=== PATIENT | female | born 1945 | race Caucasian/White ===

== ENCOUNTER 2017-03-16 11:14 | Inpatient (IN) ==
[2017-03-16] MEDS ORDERED: Ondansetron 4 MG/2 ML VIAL IVP ONE ×2 (14:05→19:07)
[2017-03-16] MEDS ORDERED: 0.9 % Sodium Chloride 1,000 ML IVC ONE (14:05)
[2017-03-16 14:21] LABS: Basophils % 0.3 %; Eosinophils % 0.3 %; Hematocrit 40.2 % (35.3-44.9); Hemoglobin 13.3 g/dL (11.5-15.4); Immature Granulocytes % 0.3 % (0-4); Lymphocytes # 1.6 K/mcL (0.6-4.6); Lymphocytes % 20.9 %; Mean Corpuscular HGB Conc 33.1 g/dL (31.6-35.5); Mean Corpuscular Hemoglobin 30.9 pg (28.0-33.3); Mean Corpuscular Volume 93.5 fL (83.0-100.0); Mean Platelet Volume 10.6 fL (9.4-12.4); Monocytes # 0.8 K/mcL (0.0-1.3); Monocytes % 10.3 %; Neutrophils # 5.3 K/mcL (1.6-8.9); Platelet Count 244 K/mcL (140-400); Red Cell Distribution Width 12.2 % (11.5-14.5); Segmented Neutrophils % 67.9 %
[2017-03-16 14:31] LABS: Bilirubin,Urine Negative (Negative); Blood,Urine Negative (Negative); Clarity,Urine Cloudy (Clear); Color,Urine Yellow (Yellow); Glucose,Urine (UA) Normal (Normal); Ketones,Urine 15 mg/dL (Negative); Leukocyte Esterase,Urine Negative (Negative); Nitrite,Urine Negative (Negative); PH,Urine 7.5 pH Units (5.0-8.0); Protein,Urine Negative (Neg-Trace); Specific Gravity,Urine 1.013 (1.010-1.025); Urobilinogen,Urine Normal (Normal)
[2017-03-16 14:35] LABS: Alanine Aminotransferase 18 Units/L (0-55); Albumin 4.1 g/dL (3.5-5.0); Albumin/Globulin Ratio 1.4 (1.1-2.2); Alkaline Phosphatase 75 Units/L (38-126); Aspartate Amino Transferase 25 Units/L (5-34); BUN/Creatinine Ratio 17 (6-26); Bilirubin,Total 0.6 mg/dL (0.2-1.2); Blood Urea Nitrogen 14 mg/dL (7-20); Calcium 10.5 mg/dL (8.6-10.8); Carbon Dioxide 29 mEq/L (19-29); Chloride 99 mEq/L (98-109); Glucose 100 mg/dL (70-99); Lipase 19 Units/L (8-78); Osmolality,Calculated 283 (280-300); Potassium 3.8 mEq/L (3.5-4.5); Sodium 136 mEq/L (136-145); Total Protein 7.1 g/dL (6.0-8.3); eGFR For African Americans > 60 (> 60); eGFR For Non-African Americans > 60 (> 60)
--- NOTE | 2017-03-16 14:49 | Emergency Department Note ---
Disposition Clinical Impression: Nausea vomiting and diarrhea, Dehydration, Elevated troponin, Pulmonary congestion Disposition: Admitted As Inpatient Condition: Good Instructions: Dehydration (ED) Referrals: Aren Malik Jr, MD [Primary Care Provider] - Forms: ED Satisfaction Letter Time of Disposition: 19:16 Nausea/Vomiting/Diarrhea HPI - General Chief complaint: ED Nausea/Vomiting/Diarrhea Stated complaint: N/V/D chills Time Seen by Provider: 03/16/17 13:38 Source: patient Mode of arrival: ambulatory Limitations: no limitations Nursing Notes Reviewed: Yes Vital Signs Reviewed: Yes - History of Present Illness HPI Narrative: Patient presents to emergency room with complaint of nausea vomiting or diarrhea. Patient is a generalized malaise and the symptoms for the last 4 days. Denies any trauma or injury. Denies any other medical conditions or symptoms. Patient denies any travel outside the country or possible food exposures. She has had this several times in the past with unknown etiology. Currently denying fevers chills nausea vomiting or diarrhea. Denies chest pain shortness of breath headache or vision change. Pt Subjective Complaint: nausea, vomiting, diarrhea Onset (ago): day(s) Description of emesis: food contents Number of episodes of emesis: 6 Description of Diarrhea: water Number of episodes: 6 Associated Abdominal Pain: No Severity: mild Quality: cramping Consistency: constant Improves with: nothing Worsens with: eating, vomiting Associated symptoms: Reports: denies other symptoms - Related Data Home Medications Medication Instructions Recorded Confirmed Citalopram [CeleXA] 20 mg PO DAILY 02/05/16 02/05/16 Diclofenac Sodium [Voltaren] 75 mg PO HS 02/05/16 02/05/16 Loratadine [Claritin] 10 mg PO DAILY 02/05/16 02/05/16 Lovastatin [Mevacor] 40 mg PO HS 02/05/16 02/05/16 Metoprolol [Lopressor] 25 mg PO BID 02/05/16 02/05/16 Nitroglycerin [Nitrostat] 0.4 mg SL Q5M PRN 02/05/16 02/05/16 Ranitidine HCl [Zantac] 150 mg PO BID 02/05/16 02/05/16 Previous Rx's Medication Instructions Recorded Albuterol Sulfate [Albuterol 2 puff IH Q4HR PRN #2 [id number].[email or web address].[id number] 02/08/16 Inhaler] Levofloxacin [Levaquin] 750 mg PO DAILY #7 tablet 02/08/16 predniSONE [PredniSONE] 10 mg PO DAILY #7 tablet 02/08/16 Oxycodone HCl/Acetaminophen 1 each PO Q6HR PRN #20 tablet 02/02/17 [Percocet 5-325 mg Tablet] Allergies Allergy/AdvReac Type Severity Reaction Status Date / Time clarithromycin [From Biaxin] Allergy Gastrointestinal Verified 02/05/16 12:45 Upset codeine AdvReac See Verified 02/05/16 08:27 Comments lansoprazole [From Prevacid] AdvReac ulcer Verified 02/05/16 12:45 lisinopril AdvReac Cough Verified 02/05/16 12:45 meloxicam [From Mobic] AdvReac ulcer Verified 02/05/16 12:45 Opium (Anthroposophic) AdvReac nausea/vomi Verified 02/05/16 12:45 ting All systems ED: reviewed and negative except as stated. Constitutional: Denies: fever, chills Cardiovascular: Denies: chest pain, palpitations, dyspnea on exertion, orthopnea Respiratory: Denies: cough, dyspnea Gastrointestinal: Reports: abdominal pain, nausea, vomiting, diarrhea. Denies: constipation Genitourinary: Denies: dysuria, frequency Musculoskeletal: Denies: back pain, neck pain Integumentary: Denies: rash Neurological: Denies: headache Endocrine: Denies: fatigue Past Medical History - Past Medical History Attestation: Yes The following information was validated with the patient. Source: patient Medical history: Reports: asthma, COPD, GERD, hyperlipidemia, hypertension Surgical history: Reports: breast surgery, cholecystectomy, hysterectomy, other Psychiatric history: Reports: anxiety - Social History Smoking Status: Never smoker Smokeless Tobacco Status: No Alcohol use: Reports: none Drug use: Reports: none Physical Exam - General Limitations: no limitations General appearance: alert - Neck Neck exam: Present: normal inspection, full ROM, trachea midline - Chest Chest inspection: Present: normal inspection, symmetric chest wall rise. Absent : tenderness - Respiratory Respiratory exam: Present: normal lung sounds bilaterally - Cardiovascular Cardiovascular exam: Present: regular rate, normal rhythm, normal heart sounds - Abdominal Exam Abdominal exam: Present: soft, Non-Tender, normal bowel sounds. Absent: tenderness, distention, guarding, rebound, rigidity, diminished bowel sounds, Garica's sign, Rovsing's sign, tenderness at McBurney's Point - Extremities Exam Extremities exam: Present: normal inspection, full ROM, normal capillary refill. Absent: tenderness, pedal edema - Back Exam Back exam: Present: normal inspection, full ROM. Absent: tenderness, CVA tenderness (R), CVA tenderness (L) - Neurological Exam Neurological exam: Present: alert, oriented X3, CN II-XII intact, normal gait - Skin Skin exam: Present: warm, dry, intact, normal color Course Course Narrative: Patient seen and examined at the time of arrival. See history of present illness. 71-year-old female presents to emergency room with complaint of nausea vomiting and diarrhea and generalized malaise over the last several days. She has had 4 days worth of diarrhea and otherwise abdominal cramping. Denies fevers chills chest pain shortness of breath headache or vision change. Denies travel outside the country or possible food exposure. She has been able to tolerate fluids up until yesterday when she is not been able to take any sips of fluid after she is going to throw up. Patient physical exam is appear to be slightly dehydrated and in some mild distress resting in the bed. Her lungs are clear heart is regular abdomen is soft with colicky like palpable abdominal discomfort. There is no signs of acute distention peritoneal-like symptoms or guarding. She has normal bowel sounds. She has no signs of rash or lesion. She moves all 4 extremities without any difficulty and has no signs of acute pitting edema. Patient based on physical exam and symptoms is concerning for possible viral syndrome causing nausea vomiting and diarrhea. Will check basic chemistry panel provide fluids and nausea medication CBC and CT imaging of the abdomen to make sure that there is no other underlying etiology. Patient understands this and is comfortable to plan. We will make sure that she does not have any other acute pathology noted during this treatment course. is at the bedside and he is comfortable with the plan and possible disposition. Patient is stable and in good medical condition at this time. Disposition pending treatment course - Reevaluation(s) Reevaluation #1: Labs are all within normal limits. Urinalysis is negative for infection. CT of the abdomen is benign at this time and no signs of acute infectious etiology developed junction renal calculi or other pathology. Chest x-ray shows cardiomegaly with mild pulmonary congestion. Patient has no history of congestive heart failure this time. She has no symptoms of chest discomfort pain or shortness of breath with exertion. Patient baseline has a pulse ox of 88% on room air. She uses oxygen at night to help with this. Patient family and I had a lengthy discussion at the bedside above negative workup and evaluation here. We discussed in detail that does not appear to have any acute signs. We will add on troponin and BMP for cardiac evaluation considering they discuss this at the bedside be one other concerns. Otherwise patient is stable evaluation here. EKG shows sinus rhythm with normal morphology in comparison to previous EKG on 02/05/16. Patient is still denying chest pain and has not had any episodes of emesis while here Time: 18:04 Reevaluation #2: Discussed the findings with the family including the pulmonary congestion after determining this is abnormal for her BNP and troponin were added onto the initial evaluation. I reviewed the EKG and shows stable morphology in comparison EKG from 02/05/16. Patient is denying any chest pain. Her main complaint is a generalized malaise and nausea and vomiting. Patient has no chest discomfort or pain at this time. BNP and troponin resulted in the troponin is 0.07 patient is a negative comparison in the past. BMP is also never been elevated for this patient. At this point based on the symptoms history as well as the life stressors including loss of her brother yesterday patient will be admitted for evaluation and monitoring here in the hospital. We will continue this observation here in the emergency room. We will discuss the findings with the hospitalist for their recommendations. We will not start anticoagulation at this time considering she does not have chest pain other symptoms and this was an incidental finding. Patient will be monitored closely here in the emergency room Time: 19:15 Reevaluation #3: Discussed with the family the elevated biomarkers as well as the continuation of her nausea here at this time. They are comfortable with this plan and agree with the admission process. Presentation is been inconsistent with acute coronary syndrome since the beginning but because of the markers as well as her persistent nausea vomiting and generalized malaise patient will be admitted at this time. Conversation was had with the hospitalist Dr. barfield. Detailed review of the presentation symptoms medical intervention as well as the prolonged course of care in the emergency room were reviewed. He had no other recommendations at this time. We reviewed the imaging T CT scan the EKG at this point. Patient will be admitted the hospital at this time for definitive evaluation and workup. No other recommendations or concerns at this time. We will continue to monitor here as a mesh prosthesis is completed patient family informed and they are both comfortable with the plan and they appreciate her concern care. Time: 19:28 Vital Signs Temperature 98.2 F 03/16/17 11:46 Pulse Rate 99 03/16/17 11:46 Respiratory Rate 18 03/16/17 11:46 Blood Pressure 142/79 03/16/17 11:46 O2 Sat by Pulse Oximetry 93 03/16/17 11:46 Temperature 98.2 F 03/16/17 11:46 Pulse Rate 92 03/16/17 19:00 Respiratory Rate 18 03/16/17 19:00 Blood Pressure 118/64 03/16/17 19:00 O2 Sat by Pulse Oximetry 94 03/16/17 19:00 Oxygen Delivery Oxygen Delivery Nasal Cannula Nausea/Vomiting/Diarrhea - [facility] Narrative Medical decision making narrative: Nausea, vomiting, diarrhea, abdominal cramping, dehydration, elevated BNP, elevated troponin - Medical Records Medical records reviewed: Yes I reviewed the patient's medical records. - Lab Data Lab results reviewed: Yes I reviewed the patient's lab results. Result diagrams: 03/16/17 14:15 03/16/17 14:15 Lab Results 03/16/17 03/16/17 03/16/17 Range/Units 14:15 14:15 14:23 WBC 7.8 (4.3-11.1) K/mcL RBC 4.30 (3.82-4.97) M/mcL Hgb 13.3 (11.5-15.4) g/dL Hct 40.2 (35.3-44.9) % MCV 93.5 (83.0-100.0) fL MCH 30.9 (28.0-33.3) pg MCHC 33.1 (31.6-35.5) g/dL RDW 12.2 (11.5-14.5) % Plt Count 244 (140-400) K/mcL MPV 10.6 (9.4-12.4) fL Immature Gran % 0.3 (0-4) % Seg Neutrophils % 67.9 % Lymphocytes % 20.9 % Monocytes % 10.3 % Eosinophils % 0.3 % Basophils % 0.3 % Neutrophils # 5.3 (1.6-8.9) K/mcL Lymphocytes # 1.6 (0.6-4.6) K/mcL Monocytes # 0.8 (0.0-1.3) K/mcL Eosinophils # 0.0 (0.0-0.6) K/mcL Basophils # 0.0 (0.0-0.2) K/mcL Sodium 136 (136-145) mEq/L Potassium 3.8 (3.5-4.5) mEq/L Chloride 99 (98-109) mEq/L Carbon Dioxide 29 (19-29) mEq/L BUN 14 (7-20) mg/dL Creatinine 0.81 (0.57-1.11) mg/dL Est GFR ( Amer) > 60 (> 60) Est GFR (Non-Af Amer) > 60 (> 60) BUN/Creatinine Ratio 17 (6-26) Glucose 100 H (70-99) mg/dL Calculated Osmolality 283 (280-300) Calcium 10.5 (8.6-10.8) mg/dL Total Bilirubin 0.6 (0.2-1.2) mg/dL AST 25 (5-34) Units/L ALT 18 (0-55) Units/L Alkaline Phosphatase 75 (38-126) Units/L Troponin I (0-0.03) ng/mL B-Natriuretic Peptide (0-100) pg/mL Serum Total Protein 7.1 (6.0-8.3) g/dL Albumin 4.1 (3.5-5.0) g/dL Globulin 3.0 (2.4-3.5) g/dL Albumin/Globulin Ratio 1.4 (1.1-2.2) Lipase 19 (8-78) Units/L Urine Color Yellow (Yellow) Urine Clarity Cloudy A (Clear) Urine pH 7.5 (5.0-8.0) pH Units Ur Specific [place] 1.013 (1.010-1.025) Urine Protein Negative (Neg-Trace) mg/dL Urine Glucose (UA) Normal (Normal) mg/dL Urine Ketones 15 H (Negative) mg/dL Urine Blood Negative (Negative) Urine Nitrite Negative (Negative) Urine Bilirubin Negative (Negative) Urine Urobilinogen Normal (Normal) mg/dL Ur Leukocyte Esterase Negative (Negative) Urine Microscopic WBC Test Not Performed Ur Culture Indicated? NO (NO) 03/16/17 03/16/17 Range/Units 18:20 18:20 WBC (4.3-11.1) K/mcL RBC (3.82-4.97) M/mcL Hgb (11.5-15.4) g/dL Hct (35.3-44.9) % MCV (83.0-100.0) fL MCH (28.0-33.3) pg MCHC (31.6-35.5) g/dL RDW (11.5-14.5) % Plt Count (140-400) K/mcL MPV (9.4-12.4) fL Immature Gran % (0-4) % Seg Neutrophils % % Lymphocytes % % Monocytes % % Eosinophils % % Basophils % % Neutrophils # (1.6-8.9) K/mcL Lymphocytes # (0.6-4.6) K/mcL Monocytes # (0.0-1.3) K/mcL Eosinophils # (0.0-0.6) K/mcL Basophils # (0.0-0.2) K/mcL Sodium (136-145) mEq/L Potassium (3.5-4.5) mEq/L Chloride (98-109) mEq/L Carbon Dioxide (19-29) mEq/L BUN (7-20) mg/dL Creatinine (0.57-1.11) mg/dL Est GFR ( Amer) (> 60) Est GFR (Non-Af Amer) (> 60) BUN/Creatinine Ratio (6-26) Glucose (70-99) mg/dL Calculated Osmolality (280-300) Calcium (8.6-10.8) mg/dL Total Bilirubin (0.2-1.2) mg/dL AST (5-34) Units/L ALT (0-55) Units/L Alkaline Phosphatase (38-126) Units/L Troponin I 0.07 H* (0-0.03) ng/mL B-Natriuretic Peptide 161 H (0-100) pg/mL Serum Total Protein (6.0-8.3) g/dL Albumin (3.5-5.0) g/dL Globulin (2.4-3.5) g/dL Albumin/Globulin Ratio (1.1-2.2) Lipase (8-78) Units/L Urine Color (Yellow) Urine Clarity (Clear) Urine pH (5.0-8.0) pH Units Ur Specific [place] (1.010-1.025) Urine Protein (Neg-Trace) mg/dL Urine Glucose (UA) (Normal) mg/dL Urine Ketones (Negative) mg/dL Urine Blood (Negative) Urine Nitrite (Negative) Urine Bilirubin (Negative) Urine Urobilinogen (Normal) mg/dL Ur Leukocyte Esterase (Negative) Urine Microscopic WBC Ur Culture Indicated? (NO) - Radiology Data Radiology results reviewed: Yes I reviewed the patient's radiology results. - EKG Data EKG attestation: Yes I reviewed and interpreted this EKG. EKG shows normal: sinus rhythm, axis, QRS complexes, ST-T waves Rate: normal Rhythm: NSR [place]/QRS: left axis deviation When compared to previous EKG there are: no significant changes Interpretation: no acute changes, unchanged when compared to prior tracing (date ) (02/15/16)
[2017-03-16] MEDS ORDERED: Aspirin 81 MG TAB.CHEW PO STA (19:27)
[2017-03-16] MEDS ORDERED: *HR* Promethazine 25 MG/ML VIAL IVP ONE (20:26)
[2017-03-16] MEDS ORDERED: Acetaminophen 325 MG TABLET PO ONE (21:24)
[2017-03-16] MEDS ORDERED: *HR* Promethazine 25 MG/ML VIAL IVP PRN (23:27)
[2017-03-16] MEDS ORDERED: Ondansetron 4 MG/2 ML VIAL IVP PRN (23:27)
[2017-03-16] MEDS ORDERED: Naloxone 0.4 MG/ML INJ IVP PRN (23:27)
[2017-03-16] MEDS ORDERED: Pantoprazole 40 MG VIAL IVP SCH (23:30)
[2017-03-16] MEDS ORDERED: Nitroglycerin 0.4 MG TAB.SUBL SL PRN (23:33)
--- NOTE | 2017-03-16 23:37 | Internal Med History&Physical ---
Date of Encounter: 03/16/17 Time of Encounter: 23:35 Assessment and Plan (1) Nausea vomiting and diarrhea Current visit: Yes Status: Acute Patient presented with nausea, vomiting and diarrhea on and off since March 03, constant and worsening over the last [address] of abd/pelvis showed no evidence of acute inflammatory process. Patient did have a round of Levaquin in early January for community acquired pneumonia. Will evaluate for c.diff c.diff PCR stool culture probiotics blood culture and urine culture. zofran and phenergan PRN for nausea and vomiting. (2) Elevated troponin Current visit: Yes Status: Acute troponin of 0.07. Patient denies any active chest pain. she does have a history of CAD s/p stent placement. Continuous gambling monitor Serial troponins echocardiogram (3) CAD (coronary artery disease) Current visit: Yes Status: Chronic Patient with history of CAD s/p stent placement. Troponin is elevated today, but not complaining of chest pain. Serial troponins and gambling monitor. Continue home dose of aspirin, statin and beta jane. Qualifiers: Coronary Disease-Associated Artery/Lesion type: [place] artery [place] vs. transplanted heart: unspecified whether [place] or transplanted heart Associated angina: without angina Qualified Code(s): I25.10 - Atherosclerotic heart disease of [place] coronary artery without angina pectoris (4) Pulmonary congestion Current visit: Yes Status: Acute CXR showed enlarged heart and pulmonary vascular congestion. Patient not reporting any increased shortness of breath from baseline. BNP mildly elevated to 161. She has no history of CHF. No peripheral edema. Continuous gambling monitor Echocardiogram in the morning. (5) COPD (chronic obstructive pulmonary disease) Current visit: Yes Status: Acute Patient denies any increased shortness of breath or cough. Not in exacerbation. Albuterol IH PRN. Titrate O2 to maintain saturation > 90%. Qualifiers: COPD type: unspecified COPD Qualified Code(s): J44.9 - Chronic obstructive pulmonary disease, unspecified (6) DVT prophylaxis Current visit: Yes Status: Acute anti-embolic stockings lovenox 40mg SQ daily Internal Medicine - H&P: HPI Chief complaint: Nausea, vomiting, diarrha Admitted From: Emergency Dept Plans for Post Hospital Care: Home History of present illness: Ms. Peck is a 71 year old female with hypertension, hyperlipidemia, COPD, diabetes, coronary artery disease status post stent placement, chronic pain status post spinal cord stimulator presents to the emergency department today with complaints of nausea, vomiting, and diarrhea. Patient reports that her symptoms started on March 03, and reports that they got better, worse, got better again, but for the last 4 days have been worsening. She also complains of intermittent abdominal cramping, which is relieved when she has a bowel movement. She reports her bowel movements are watery, but do not seem to be more frequent than baseline. She reports chills and sweats. She also reports occasional chest aching in the last 1 month, but none today. She denies headache palpitations, increased shortness of breath or coughing. Evaluation in the emergency department included CT of the abdomen and pelvis which showed no evidence of acute inflammatory process. Chest x-ray showed enlarged heart and pulmonary vascular congestion. Troponin and BNP were obtained due to the chest x-ray result, and troponin was elevated at 0.07. BNP was also mildly elevated at 161. Other labs are grossly normal. White Blood cell count is normal at 7.8. On exam, patient alert and oriented, in no acute distress. Patient was given 1 L bolus, as well as Zofran and Phenergan in the emergency department. On exam, patient alert and oriented, in no acute distress. Heart has regular rate and rhythm. Lungs are clear bilaterally to auscultation. Patient has incision scars on her back from spinal cord stimulator implanted beginning of January. The incision in the left flank has mild erythema surrounding it and is a little more tender than the incision just right of her spine. No peripheral edema. Past Med Surg Social Fam HX - Past Medical History Medical history: arthritis, asthma, COPD, GERD, GI bleed, hyperlipidemia, hypertension Psychiatric history: anxiety - Past Surgical History Surgical History: breast surgery, cholecystectomy, hysterectomy, orthopedic, other (lumbar laminectomy), other (spinal cord stimulator) - Social History Smoking Status: Former smoker (45 pack year history) Smokeless Tobacco Status: No Alcohol use: none Drug use: none - Family History Mother Living Status: Hx Family Cardiac Disorders: Yes ("artery disease", CHF) Hx Family GI Disorders: Yes (ulcers) Hx Family Endocrine Disorder: Yes Father Living Status: Hx Family Cardiac Disorders: Yes ("valve problems") Brother Living Status: Hx Family Cardiac Disorders: Yes Internal Medicine - H&P: Meds Citalopram [CeleXA] 20 mg PO DAILY 02/05/16 [History] Diclofenac Sodium [Voltaren] 75 mg PO HS 02/05/16 [History] Loratadine [Claritin] 10 mg PO DAILY 02/05/16 [History] Lovastatin [Mevacor] 40 mg PO HS 02/05/16 [History] Metoprolol [Lopressor] 25 mg PO BID 02/05/16 [History] Nitroglycerin [Nitrostat] 0.4 mg SL Q5M PRN 02/05/16 [History] Ranitidine HCl [Zantac] 150 mg PO BID 02/05/16 [History] Albuterol Sulfate [Albuterol Inhaler] 2 puff IH Q4HR PRN #2 hfa.aer.ad 02/08/16 [Rx] Pregabalin [Lyrica] 75 mg PO BID 03/16/17 [History] Allergies clarithromycin [From Biaxin] Allergy (Verified 02/05/16 12:45) Gastrointestinal Upset codeine Adverse Reaction (Verified 02/05/16 08:27) See Comments sweating lansoprazole [From Prevacid] Adverse Reaction (Verified 02/05/16 12:45) ulcer lisinopril Adverse Reaction (Verified 02/05/16 12:45) Cough meloxicam [From Mobic] Adverse Reaction (Verified 02/05/16 12:45) ulcer Opium (Anthroposophic) Adverse Reaction (Verified 02/05/16 12:45) nausea/vomiting All Systems PM: A 10-system review of systems was performed and is negative for pertinent findings except as documented above in the HPI. - Constitutional Constitutional: anorexia, chills, night sweats, no fever(s) - EENT Eyes: no change in vision, no discharge, no pain, no photophobia Ears: no ear discharge, no ear pain, no tinnitus Nose, mouth and throat: no dysphagia, no nasal discharge, no neck pain, no sore throat - Cardiovascular Cardiovascular ROS IM: chest pain, dyspnea (chronic), no diaphoresis, no lightheadedness, no palpitations, no syncope - Respiratory Respiratory: dyspnea (chronic), no cough, no wheezing, no excessive phlegm production - Gastrointestinal Gastrointestinal: cramping, diarrhea, nausea, vomiting, no abdominal pain, no hematemesis, no hematochezia, no melena - Genitourinary Genitourinary: no change in urinary stream, no dysuria, no flank pain, no hematuria - Musculoskeletal Musculoskeletal ROS IM: no numbness, no tingling - Integumentary Integumentary IM: no rash, no unusual bruising - Neurological Neurological ROS: no confusion, no convulsions, no focal weakness, no numbness, no tingling, no tremor(s) - Hematologic/Lymphatic Hematologic/Lymphatic: no easy bruising - Constitutional Vitals: Temp Pulse Resp BP Pulse Ox 97.7 F 89 16 133/83 94 03/16/17 20:31 03/16/17 20:31 03/16/17 20:31 03/16/17 20:31 03/16/17 21:10 General appearance: Present: A&O X 3, pleasant, no acute distress - Head Head exam: Present: atraumatic, normocephalic - Eye Eye exam: Present: PERRL, conjuntiva pink, sclera anicteric Pupils: Present: PERRL - Neck Neck exam general surgery: Present: supple, trachea midline. Absent: lymphadenopathy - Respiratory Respiratory exam: Present: CTAB. Absent: accessory muscle use, rales, rhonchi, wheezes - Cardiovascular Cardiovascular exam: Present: RRR, +S1, +S2. Absent: diastolic murmur, gallop, rubs, systolic murmur - GI/Abdominal GI/Abdominal exam: Present: normal bowel sounds, soft, no peritoneal signs. Absent: distended, tenderness - Extremities Exam Extremities exam: Present: warm, radial pulses palpable and symetrical. Absent : calf tenderness, cyanotic, pedal edema - [place] Incision: Present: clean and dry, intact, erythema (mild) - Neurological Exam Neurological exam: Present: CN II-XII intact, oriented X3, no focal deficits. Absent: facial droop, speech deficit - Skin Skin exam: Present: dry, intact Internal Med - H&P Results - Labs CBC & Chem 7: 03/16/17 14:15 03/16/17 14:15 Labs: All Lab Results (24 Hours) 03/16/17 03/16/17 03/16/17 Range/Units 14:15 14:15 14:23 WBC 7.8 (4.3-11.1) K/mcL RBC 4.30 (3.82-4.97) M/mcL Hgb 13.3 (11.5-15.4) g/dL Hct 40.2 (35.3-44.9) % MCV 93.5 (83.0-100.0) fL MCH 30.9 (28.0-33.3) pg MCHC 33.1 (31.6-35.5) g/dL RDW 12.2 (11.5-14.5) % Plt Count 244 (140-400) K/mcL MPV 10.6 (9.4-12.4) fL Immature Gran % 0.3 (0-4) % Seg Neutrophils % 67.9 % Lymphocytes % 20.9 % Monocytes % 10.3 % Eosinophils % 0.3 % Basophils % 0.3 % Neutrophils # 5.3 (1.6-8.9) K/mcL Lymphocytes # 1.6 (0.6-4.6) K/mcL Monocytes # 0.8 (0.0-1.3) K/mcL Eosinophils # 0.0 (0.0-0.6) K/mcL Basophils # 0.0 (0.0-0.2) K/mcL Sodium 136 (136-145) mEq/L Potassium 3.8 (3.5-4.5) mEq/L Chloride 99 (98-109) mEq/L Carbon Dioxide 29 (19-29) mEq/L BUN 14 (7-20) mg/dL Creatinine 0.81 (0.57-1.11) mg/dL Est GFR ( Amer) > 60 (> 60) Est GFR (Non-Af Amer) > 60 (> 60) BUN/Creatinine Ratio 17 (6-26) Glucose 100 H (70-99) mg/dL Calculated Osmolality 283 (280-300) Calcium 10.5 (8.6-10.8) mg/dL Total Bilirubin 0.6 (0.2-1.2) mg/dL AST 25 (5-34) Units/L ALT 18 (0-55) Units/L Alkaline Phosphatase 75 (38-126) Units/L Troponin I (0-0.03) ng/mL B-Natriuretic Peptide (0-100) pg/mL Serum Total Protein 7.1 (6.0-8.3) g/dL Albumin 4.1 (3.5-5.0) g/dL Globulin 3.0 (2.4-3.5) g/dL Albumin/Globulin Ratio 1.4 (1.1-2.2) Lipase 19 (8-78) Units/L Urine Color Yellow (Yellow) Urine Clarity Cloudy A (Clear) Urine pH 7.5 (5.0-8.0) pH Units Ur Specific [place] 1.013 (1.010-1.025) Urine Protein Negative (Neg-Trace) mg/dL Urine Glucose (UA) Normal (Normal) mg/dL Urine Ketones 15 H (Negative) mg/dL Urine Blood Negative (Negative) Urine Nitrite Negative (Negative) Urine Bilirubin Negative (Negative) Urine Urobilinogen Normal (Normal) mg/dL Ur Leukocyte Esterase Negative (Negative) Urine Microscopic WBC Test Not Performed Ur Culture Indicated? NO (NO) 03/16/17 03/16/17 Range/Units 18:20 18:20 WBC (4.3-11.1) K/mcL RBC (3.82-4.97) M/mcL Hgb (11.5-15.4) g/dL Hct (35.3-44.9) % MCV (83.0-100.0) fL MCH (28.0-33.3) pg MCHC (31.6-35.5) g/dL RDW (11.5-14.5) % Plt Count (140-400) K/mcL MPV (9.4-12.4) fL Immature Gran % (0-4) % Seg Neutrophils % % Lymphocytes % % Monocytes % % Eosinophils % % Basophils % % Neutrophils # (1.6-8.9) K/mcL Lymphocytes # (0.6-4.6) K/mcL Monocytes # (0.0-1.3) K/mcL Eosinophils # (0.0-0.6) K/mcL Basophils # (0.0-0.2) K/mcL Sodium (136-145) mEq/L Potassium (3.5-4.5) mEq/L Chloride (98-109) mEq/L Carbon Dioxide (19-29) mEq/L BUN (7-20) mg/dL Creatinine (0.57-1.11) mg/dL Est GFR ( Amer) (> 60) Est GFR (Non-Af Amer) (> 60) BUN/Creatinine Ratio (6-26) Glucose (70-99) mg/dL Calculated Osmolality (280-300) Calcium (8.6-10.8) mg/dL Total Bilirubin (0.2-1.2) mg/dL AST (5-34) Units/L ALT (0-55) Units/L Alkaline Phosphatase (38-126) Units/L Troponin I 0.07 H* (0-0.03) ng/mL B-Natriuretic Peptide 161 H (0-100) pg/mL Serum Total Protein (6.0-8.3) g/dL Albumin (3.5-5.0) g/dL Globulin (2.4-3.5) g/dL Albumin/Globulin Ratio (1.1-2.2) Lipase (8-78) Units/L Urine Color (Yellow) Urine Clarity (Clear) Urine pH (5.0-8.0) pH Units Ur Specific [place] (1.010-1.025) Urine Protein (Neg-Trace) mg/dL Urine Glucose (UA) (Normal) mg/dL Urine Ketones (Negative) mg/dL Urine Blood (Negative) Urine Nitrite (Negative) Urine Bilirubin (Negative) Urine Urobilinogen (Normal) mg/dL Ur Leukocyte Esterase (Negative) Urine Microscopic WBC Ur Culture Indicated? (NO) - Diagnostic Studies Chest x-ray Additional comments: Chest X-Ray 03/16/17 14:07 IMPRESSION: Heart size is enlarged. Pulmonary vascular congestion. D/ / Isabella Sanches MD / Isabella Sanches MD Interpreting Provider: Isabella Sanches MD CT scan - abdomen Additional comments: Abdomen/Pelvis CT 03/16/17 15:30 IMPRESSION: No evidence of acute inflammatory process in the abdomen or pelvis. D/ / Audrey Justin MD / Audrey Justin MD Interpreting Provider: Audrey Justin MD
[2017-03-17 01:11] LABS: Basophils % 0.3 %; Eosinophils % 0.3 %; Hematocrit 37.7 % (35.3-44.9); Hemoglobin 12.3 g/dL (11.5-15.4); Immature Granulocytes % 0.3 % (0-4); Lymphocytes # 1.5 K/mcL (0.6-4.6); Lymphocytes % 21.3 %; Mean Corpuscular HGB Conc 32.6 g/dL (31.6-35.5); Mean Corpuscular Hemoglobin 30.8 pg (28.0-33.3); Mean Corpuscular Volume 94.3 fL (83.0-100.0); Mean Platelet Volume 11.1 fL (9.4-12.4); Monocytes # 0.8 K/mcL (0.0-1.3); Monocytes % 11.2 %; Neutrophils # 4.6 K/mcL (1.6-8.9); Platelet Count 221 K/mcL (140-400); Red Cell Distribution Width 12.1 % (11.5-14.5); Segmented Neutrophils % 66.6 %
[2017-03-17 01:27] LABS: BUN/Creatinine Ratio 15 (6-26); Blood Urea Nitrogen 11 mg/dL (7-20); Calcium 9.2 mg/dL (8.6-10.8); Carbon Dioxide 26 mEq/L (19-29); Chloride 103 mEq/L (98-109); Glucose 95 mg/dL (70-99); Osmolality,Calculated 281 (280-300); Potassium 3.7 mEq/L (3.5-4.5); Sodium 136 mEq/L (136-145); eGFR For African Americans > 60 (> 60); eGFR For Non-African Americans > 60 (> 60)
[2017-03-17] MEDS: Pregabalin 75 MG CAPSULE PO SCH ×3 (01:31→21:51)
[2017-03-17] MEDS: *HR* Enoxaparin 40 MG/0.4 ML SYRINGE SQ SCH (05:24)
[2017-03-17] MEDS: MetroNIDAZOLE 500 MG/100 ML 500 MG/100 ML BAG IVPB SCH ×3 (08:17→23:37)
[2017-03-17] MEDS: Lactobacillus 1 EACH CAP.SPRINK PO SCH ×2 (08:18→21:51)
[2017-03-17] MEDS: Loratadine 10 MG TABLET PO SCH (08:18)
--- NOTE | 2017-03-17 08:37 | Internal Med Progress Note ---
Date of Encounter: 03/17/17 Time of Encounter: 08:35 - Assessment and plan (1) Acute gastroenteritis Current Visit: Yes Status: Acute Assessment and plan: Acute gastroenteritis viral versus bacterial Currently on ciprofloxacin and Flagyl IV day 2 Order GI panel May discontinue antibiotics if negative for C. difficile and negative GI panel Advance diet, discontinue IV fluids (2) CAD (coronary artery disease) Current Visit: Yes Status: Chronic Assessment and plan: Continue aspirin and metoprolol Qualifiers: Coronary Disease-Associated Artery/Lesion type: [place] artery [place] vs. transplanted heart: unspecified whether [place] or transplanted heart Associated angina: without angina Qualified Code(s): I25.10 - Atherosclerotic heart disease of [place] coronary artery without angina pectoris (3) Hypertension Current Visit: No Status: Acute Assessment and plan: Stable Qualifiers: Hypertension type: essential hypertension Qualified Code(s): I10 - Essential (primary) hypertension (4) Dehydration Current Visit: Yes Status: Acute Assessment and plan: Likely secondary to acute gastroenteritis (5) Elevated troponin Current Visit: Yes Status: Acute Assessment and plan: Likely secondary to demand ischemia Continue aspirin (6) COPD (chronic obstructive pulmonary disease) Current Visit: Yes Status: Acute Assessment and plan: No exacerbation Qualifiers: COPD type: unspecified COPD Qualified Code(s): J44.9 - Chronic obstructive pulmonary disease, unspecified - Subjective Interval history: The patient continues to have watery diarrhea, denies any abdominal pain at the moment. Has been having episodes of chest pain over the past few months on and off. Denies any fever, no sick contacts. No dysuria. Feels weak - Constitutional Vitals: Temp Pulse Resp BP Pulse Ox 97.9 F 76 16 108/72 96 03/17/17 07:50 03/17/17 07:50 03/17/17 07:50 03/17/17 07:50 03/17/17 07:50 General appearance: Present: A&O X 3, pleasant, no acute distress - Head Head exam: Present: atraumatic, normocephalic - Eye Eye exam: Present: PERRL, conjuntiva pink, sclera anicteric Pupils: Present: PERRL - Neck Neck exam general surgery: Present: supple, trachea midline. Absent: lymphadenopathy - Respiratory Respiratory exam: Present: CTAB. Absent: accessory muscle use, rales, rhonchi, wheezes - Cardiovascular Cardiovascular exam: Present: RRR, +S1, +S2. Absent: diastolic murmur, gallop, rubs, systolic murmur - GI/Abdominal GI/Abdominal exam: Present: normal bowel sounds, soft, no peritoneal signs. Absent: distended, tenderness - Extremities Exam Extremities exam: Present: warm, radial pulses palpable and symetrical. Absent : calf tenderness, cyanotic, pedal edema - Neurological Exam Neurological exam: Present: CN II-XII intact, oriented X3, no focal deficits. Absent: pronater drift, facial droop, speech deficit - Skin Skin exam: Present: dry, intact Internal Medicine: Result - Labs CBC & Chem 7: 03/17/17 00:55 03/17/17 00:55 Labs: Short CBC 03/17/17 Range/Units 00:55 WBC 7.0 (4.3-11.1) K/mcL Hgb 12.3 (11.5-15.4) g/dL Hct 37.7 (35.3-44.9) % Plt Count 221 (140-400) K/mcL Neutrophils # 4.6 (1.6-8.9) K/mcL BMP 03/17/17 00:55 Sodium 136 Potassium 3.7 Chloride 103 Carbon Dioxide 26 BUN 11 Creatinine 0.71 Glucose 95 Calcium 9.2 Cardiac Enzymes 03/17/17 03/17/17 Range/Units 00:55 05:32 Troponin I 0.10 H* 0.10 H* (0-0.03) ng/mL Consult Discharge Plan - Plan Referrals: Aren Malik Jr, MD [Primary Care Provider] -
--- NOTE | 2017-03-17 10:10 | Cardiology Consult Note ---
Date of Encounter: 03/17/17 Time of Encounter: 10:03 Assessment and Plan (1) Elevated troponin Current Visit: Yes Status: Acute Cardiology consulted for troponin elevation at 0.07, 0.10, 0.10. Likely demand ischemia in the setting of viral illness/ dehydration. H/o PCI to her LAD in 1997. Denies chest pain during her stay. C/o atypical left side pain in the past week. Recommend TTE. Further recommendation to follow. (2) CAD (coronary artery disease) Current Visit: No Status: Chronic S/p previous PCI. Continue asa, statin, and bb. Will re-istablish out-pt cardiology f/u. Qualifiers: Coronary Disease-Associated Artery/Lesion type: [place] artery [place] vs. transplanted heart: unspecified whether [place] or transplanted heart Associated angina: without angina Qualified Code(s): I25.10 - Atherosclerotic heart disease of [place] coronary artery without angina pectoris Discussion w patient/family: The assessment and plan as outlined above was discussed with the patient and/or family members who expressed understanding and agreement. All questions were answered. Thank you for involving us in the care of your patient. Please call with any questions. History of Present Illness Consult date: 03/17/17 Requesting physician: Guy Saini Consult reason: Elevated troponin Chief complaint: N/V/D and chills for two weeks. History of present illness: Ms. Peck is a 71 year old female with a history of CAD s/p PCI to the LAD in 1997 at [facility], COPD on home O2, chronic respiratory failure, HTN, and GERD who presented with N/V/D and chills. Symptoms started on the 03 of March. She states she improved after a few day and then symptoms returned. She admits to left side pain at rest. No pain since five days ago. Denies aggravating factors. Patient reports minimal activity due to severe COPD. States SOB and cough is at baseline. Cardiology consulted for elevated troponin, 0.07, 0.10, 0.10. Past Med Surg Social Fam HX - Past Medical History Medical history: arthritis, asthma, COPD, coronary artery disease, GERD, GI bleed, hyperlipidemia, hypertension Psychiatric history: anxiety - Past Surgical History Surgical History: breast surgery, cholecystectomy, hysterectomy, orthopedic, other (lumbar laminectomy), other (spinal cord stimulator) - Social History Smoking Status: Former smoker (45 pack year history) Smokeless Tobacco Status: No Alcohol use: none Drug use: none - Family History Brother Living Status: Hx Family Cardiac Disorders: Yes Mother Living Status: Hx Family Cardiac Disorders: Yes ("artery disease", CHF) Hx Family GI Disorders: Yes (ulcers) Hx Family Endocrine Disorder: Yes Father Living Status: Hx Family Cardiac Disorders: Yes ("valve problems") Medications and Allergies Citalopram [CeleXA] 20 mg PO DAILY 02/05/16 [History] Diclofenac Sodium [Voltaren] 75 mg PO HS 02/05/16 [History] Loratadine [Claritin] 10 mg PO DAILY 02/05/16 [History] Lovastatin [Mevacor] 40 mg PO HS 02/05/16 [History] Metoprolol [Lopressor] 25 mg PO BID 02/05/16 [History] Nitroglycerin [Nitrostat] 0.4 mg SL Q5M PRN 02/05/16 [History] Ranitidine HCl [Zantac] 150 mg PO BID 02/05/16 [History] Albuterol Sulfate [Albuterol Inhaler] 2 puff IH Q4HR PRN #2 hfa.aer.ad 02/08/16 [Rx] Pregabalin [Lyrica] 75 mg PO BID 03/16/17 [History] Allergies clarithromycin [From Biaxin] Allergy (Verified 02/05/16 12:45) Gastrointestinal Upset codeine Adverse Reaction (Verified 02/05/16 08:27) See Comments sweating lansoprazole [From Prevacid] Adverse Reaction (Verified 02/05/16 12:45) ulcer lisinopril Adverse Reaction (Verified 02/05/16 12:45) Cough meloxicam [From Mobic] Adverse Reaction (Verified 02/05/16 12:45) ulcer Opium (Anthroposophic) Adverse Reaction (Verified 02/05/16 12:45) nausea/vomiting All Systems Review: A 10-system review of systems was performed and is negative for pertinent findings except as documented above in the HPI. Physical Examination Vital Signs, Last 4 Hours Temp Pulse Resp BP Pulse Ox 03/17/17 07:50 97.9 F 76 16 108/72 96 General: Conversant, No Apparent Distress HEENT: Atraumatic, Normocephaly, Mucus Membranes Moist Neck: No JVD, Normal carotid pulses Cardiac: Reg Rate and Rhythm, Normal S1 and S2, No Murmur Lungs: Normal Breath Sounds, No Wheeze, Rales, Rhonchi, Other (diminished bases) Neuro: Alert and responsive, No focal deficits noted Abdomen: Soft, Non-Tender Skin: No rashes noted on visualized skin Musculoskeletal: No Chest Wall Tenderness Extremities: No Clubbing, No Cyanosis, No Edema, Normal Pulses Results 03/17/17 00:55 03/17/17 00:55 Lab Results 03/17/17 03/17/17 03/17/17 00:55 00:55 00:55 WBC 7.0 Hgb 12.3 Hct 37.7 Plt Count 221 Sodium 136 Potassium 3.7 Chloride 103 Carbon Dioxide 26 BUN 11 Creatinine 0.71 Glucose 95 Calcium 9.2 Troponin I 0.10 H* 03/17/17 05:32 WBC Hgb Hct Plt Count Sodium Potassium Chloride Carbon Dioxide BUN Creatinine Glucose Calcium Troponin I 0.10 H* - Imaging and Cardiology Echo: pending - EKG Interpretation EKG results cardiology: personally reviewed (SR with no acute ST changes.) Consult Discharge Plan - Plan Referrals: Aren Malik Jr, MD [Primary Care Provider] - (web request. 03/17/2017)
--- NOTE | 2017-03-17 15:09 | Electrocardiograph Report ---
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
[2017-03-17] MEDS: Acetaminophen 325 MG TABLET PO PRN (15:48)
[2017-03-17] MEDS ORDERED: Diclofenac Sodium 75 MG TABLET PO SCH (21:00)
[2017-03-18] MEDS: Famotidine 20 MG TABLET PO SCH ×2 (01:19→09:29)
[2017-03-18 05:43] LABS: Hematocrit 35.2 % (35.3-44.9); Hemoglobin 11.5 g/dL (11.5-15.4); Mean Corpuscular HGB Conc 32.7 g/dL (31.6-35.5); Mean Corpuscular Hemoglobin 31.2 pg (28.0-33.3); Mean Corpuscular Volume 95.4 fL (83.0-100.0); Mean Platelet Volume 11.3 fL (9.4-12.4); Platelet Count 205 K/mcL (140-400); Red Blood Count 3.69 M/mcL (3.82-4.97); Red Cell Distribution Width 12.3 % (11.5-14.5)
[2017-03-18] MEDS: *HR* Enoxaparin 40 MG/0.4 ML SYRINGE SQ SCH (06:06)
[2017-03-18 06:08] LABS: BUN/Creatinine Ratio 16 (6-26); Blood Urea Nitrogen 11 mg/dL (7-20); Calcium 8.8 mg/dL (8.6-10.8); Carbon Dioxide 29 mEq/L (19-29); Chloride 108 mEq/L (98-109); Glucose 87 mg/dL (70-99); Osmolality,Calculated 291 (280-300); Potassium 3.4 mEq/L (3.5-4.5); Sodium 141 mEq/L (136-145); eGFR For African Americans > 60 (> 60); eGFR For Non-African Americans > 60 (> 60)
[2017-03-18] MEDS: Acetaminophen 325 MG TABLET PO PRN (06:13)
--- NOTE | 2017-03-18 08:19 | Discharge Summary ---
Date of Encounter: 03/18/17 Time of Encounter: 08:15 - Discharge Diagnosis (1) Acute gastroenteritis Priority: Primary Status: Acute Comments: Acute gastroenteritis viral versus bacterial (2) CAD (coronary artery disease) Priority: Secondary Status: Chronic Qualifiers: Coronary Disease-Associated Artery/Lesion type: [place] artery [place] vs. transplanted heart: unspecified whether iroquois or transplanted heart Associated angina: without angina Qualified Code(s): I25.10 - Atherosclerotic heart disease of [place]ro[place] coronary artery without angina pectoris (3) Hypertension Priority: Secondary Status: Acute Qualifiers: Hypertension type: essential hypertension Qualified Code(s): I10 - Essential (primary) hypertension (4) Dehydration Priority: Secondary Status: Acute (5) Elevated troponin Priority: Primary Status: Acute Comments: Physical secondary to demand ischemia (6) COPD (chronic obstructive pulmonary disease) Priority: Secondary Status: Acute Qualifiers: COPD type: unspecified COPD Qualified Code(s): J44.9 - Chronic obstructive pulmonary disease, unspecified (7) Pericardial effusion Priority: Secondary Status: Acute Comments: Small pericardial effusion, cardiology is recommending to repeat another echocardiogram in a couple of days - Discharge Medications Prescriptions: Ciprofloxacin [Cipro] 500 mg PO BID #10 tab Lactobacillus [Culturelle] 1 each PO BID #30 metroNIDAZOLE [Flagyl] 500 mg PO TID #15 tab Home Medications: Citalopram [CeleXA] 20 mg PO DAILY 02/05/16 [History] Diclofenac Sodium [Voltaren] 75 mg PO HS 02/05/16 [History] Loratadine [Claritin] 10 mg PO DAILY 02/05/16 [History] Lovastatin [Mevacor] 40 mg PO HS 02/05/16 [History] Metoprolol [Lopressor] 25 mg PO BID 02/05/16 [History] Nitroglycerin [Nitrostat] 0.4 mg SL Q5M PRN 02/05/16 [History] Ranitidine HCl [Zantac] 150 mg PO BID 02/05/16 [History] Albuterol Sulfate [Albuterol Inhaler] 2 puff IH Q4HR PRN #2 hfa.aer.ad 02/08/16 [Rx] Pregabalin [Lyrica] 75 mg PO BID 03/16/17 [History] Ciprofloxacin [Cipro] 500 mg PO BID #10 tab 07/19/17 [Rx] Lactobacillus [Culturelle] 1 each PO BID #30 03/18/17 [Rx] metroNIDAZOLE [Flagyl] 500 mg PO TID #15 tab 03/18/17 [Rx] Allergies/Adverse Reactions: Allergies clarithromycin [From Biaxin] Allergy (Verified 02/05/16 12:45) Gastrointestinal Upset codeine Adverse Reaction (Verified 02/05/16 08:27) See Comments sweating lansoprazole [From Prevacid] Adverse Reaction (Verified 02/05/16 12:45) ulcer lisinopril Adverse Reaction (Verified 02/05/16 12:45) Cough meloxicam [From Mobic] Adverse Reaction (Verified 02/05/16 12:45) ulcer Opium (Anthroposophic) Adverse Reaction (Verified 02/05/16 12:45) nausea/vomiting Date of admission: 03/17/17 00:49 Primary care physician: Aren Malik Jr, MD Consults: 03/17/17 06:41 Consult to Cardiology [CONS] Routine Comment: Consulting Provider: Cardiology Daniels Reason for Consult: Elevated troponin Call Completed: No - Patient Status Disposition: Home Health Service Condition: Good Overall status at discharge: patient is progressing back to baseline - Discharge Instructions Follow Up With: Aren Malik Jr, MD [Primary Care Provider] - (web request. 03/17/2017) Additional Instructions: Follow-up with primary care physician within the next 7 days. Echocardiogram will be scheduled within the next 2 days, follow the report with primary care physician. Complete doses of ciprofloxacin and Flagyl for 5 days. - Diet and Activity Activity: increase activity as tolerated Diet: low fat, low cholesterol Hospital course: Ms. Peck is a 71 year old female h/o COPD, chronic resp failure on home O2 , GERD, hyperlipidemia, hypertension, back pain - Chronic pain syndrome, postlaminectomy syndrome lumbar spine s/p spinal cord stimulator placement in January 2017. Presents to emergency room with complaint of nausea vomiting or diarrhea for 4 days , was worsening.She reported her bowel movements were watery. She also reported occasional chest aching in the last 1 month. She denied headache palpitations, increased shortness of breath or coughing. Evaluation in the emergency department included CT of the abdomen and pelvis which showed no evidence of acute inflammatory process. Chest x-ray showed enlarged heart and pulmonary vascular congestion. Troponin was elevated at 0.07, increased up to 0.10. BNP was also mildly elevated at 161. The patient was started on ciprofloxacin and Flagyl IV and improved considerably. Cardiology evaluated the patient and recommended just to do another echocardiogram in a couple of days to assess a small pericardial effusion that was found. The patient was asymptomatic today and is requesting to be discharged. She was offered the option to stay an additional day in order to perform 2-D echocardiogram but she mentions that her brother and she would like to attend his . GI panel was ordered and is pending. - Time Spent with Patient Total time spent providing and/or coordinating discharge services: Greater than 30 minutes (40 min) - Constitutional Vitals: Temp Pulse Resp BP Pulse Ox 97.8 F 71 18 109/64 98 03/18/17 07:09 03/18/17 07:09 03/18/17 07:09 03/18/17 07:09 03/18/17 07:09 General appearance: Present: A&O X 3, pleasant, no acute distress - Head Head exam: Present: atraumatic, normocephalic - Eye Eye exam: Present: PERRL, conjuntiva pink, sclera anicteric Pupils: Present: PERRL - Neck Neck exam general surgery: Present: supple, trachea midline. Absent: lymphadenopathy - Respiratory Respiratory exam: Present: CTAB. Absent: accessory muscle use, rales, rhonchi, wheezes - Cardiovascular Cardiovascular exam: Present: RRR, +S1, +S2. Absent: diastolic murmur, gallop, rubs, systolic murmur - GI/Abdominal GI/Abdominal exam: Present: normal bowel sounds, soft, no peritoneal signs. Absent: distended, tenderness - Extremities Exam Extremities exam: Present: warm, radial pulses palpable and symetrical. Absent : calf tenderness, cyanotic, pedal edema - Neurological Exam Neurological exam: Present: CN II-XII intact, oriented X3, no focal deficits. Absent: pronater drift, facial droop, speech deficit - Skin Skin exam: Present: dry, intact
--- NOTE | 2017-03-18 08:29 | Physician Discharge Referral ---
Home Health/Hosp Referral Info Transfer to: Home Health Provider in Charge Post Discharge: PCP - Diagnosis (1) Acute gastroenteritis Status: Acute (2) CAD (coronary artery disease) Status: Chronic (3) Hypertension Status: Acute (4) Dehydration Status: Acute (5) Elevated troponin Status: Acute (6) COPD (chronic obstructive pulmonary disease) Status: Acute (7) Pericardial effusion Status: Acute - Respiratory Orders Oxygen / L per min (2 L continuously) Smoking Cessation: Smoking cessation has been advised. For more information, call the [employer] Q[employer] Line at [phone]-HKNY-NOW. - Diet/Nutrition Diet/Nutrition Orders: No Added Salt (SALOMON) (Low-fat and low lactose) - Services Needed Home Care Orders: Follow-up with primary care physician within the next 7 days. Echocardiogram will be scheduled within the next 2 days, follow the report with primary care physician. Complete doses of ciprofloxacin and Flagyl for 5 days. - Transfer Medications Prescriptions: Ciprofloxacin [Cipro] 500 mg PO BID #10 tab Lactobacillus [Culturelle] 1 each PO BID #30 metroNIDAZOLE [Flagyl] 500 mg PO TID #15 tab Home Medications: Citalopram [CeleXA] 20 mg PO DAILY 02/05/16 [History] Diclofenac Sodium [Voltaren] 75 mg PO HS 02/05/16 [History] Loratadine [Claritin] 10 mg PO DAILY 02/05/16 [History] Lovastatin [Mevacor] 40 mg PO HS 02/05/16 [History] Metoprolol [Lopressor] 25 mg PO BID 02/05/16 [History] Nitroglycerin [Nitrostat] 0.4 mg SL Q5M PRN 02/05/16 [History] Ranitidine HCl [Zantac] 150 mg PO BID 02/05/16 [History] Albuterol Sulfate [Albuterol Inhaler] 2 puff IH Q4HR PRN #2 hfa.aer.ad 02/08/16 [Rx] Pregabalin [Lyrica] 75 mg PO BID 03/16/17 [History] Ciprofloxacin [Cipro] 500 mg PO BID #10 tab 03/18/17 [Rx] Lactobacillus [Culturelle] 1 each PO BID #30 03/18/17 [Rx] metroNIDAZOLE [Flagyl] 500 mg PO TID #15 tab 03/18/17 [Rx] Allergies/Adverse Reactions: Allergies clarithromycin [From Biaxin] Allergy (Verified 02/05/16 12:45) Gastrointestinal Upset codeine Adverse Reaction (Verified 02/05/16 08:27) See Comments sweating lansoprazole [From Prevacid] Adverse Reaction (Verified 02/05/16 12:45) ulcer lisinopril Adverse Reaction (Verified 02/05/16 12:45) Cough meloxicam [From Mobic] Adverse Reaction (Verified 02/05/16 12:45) ulcer Opium (Anthroposophic) Adverse Reaction (Verified 02/05/16 12:45) nausea/vomiting Certification: Further, I certify that my clinical findings support that this patient is homebound (i.e. absences from home require considerable and taxing effort and are for medical reasons or taoism services or infrequently or short duration when for other reasons) because: Homebound Reason: Patient requires assistance of a person or device to safely leave home Attestation: My signature below is to certify that this patient is under my care and that I, or nurse practitioner, or a physician's carpenter assistant working with me, has a face-to -face encounter with this patient.
[2017-03-18] MEDS ORDERED: metroNIDAZOLE 500 MG TABLET PO SCH (09:00)
[2017-03-18] MEDS: Lactobacillus 1 EACH CAP.SPRINK PO SCH (09:29)
[2017-03-18] MEDS: Pregabalin 75 MG CAPSULE PO SCH (09:30)
[2017-03-18] MEDS: Loratadine 10 MG TABLET PO SCH (09:30)
[2017-03-18 09:36] LABS: Adenovirus F 40/41 PCR Not detected (Not detect); Astrovirus PCR Not detected (Not detect); C.difficile Toxin A/B by PCR Not detected (Not detect); Campylobacter by PCR Not detected (Not detect); Cryptosporidium by PCR Not detected (Not detect); Cyclospora cayetanensis PCR Not detected (Not detect); E. coli O157 by PCR Not detected (Not detect); Entamoeba histolytica PCR Not detected (Not detect); Enteroaggregative E.coli(EAEC) Not detected (Not detect); Enteropathogenic E.coli(EPEC) ***DETECTED*** (Not detect); Enterotoxigenic E.coli (ETEC) Not detected (Not detect); Giardia lamblia PCR Not detected (Not detect); Norovirus GI/GII PCR Not detected (Not detect); Plesiomonas shigelloides PCR Not detected (Not detect); Rotavirus A PCR Not detected (Not detect); Salmonella PCR Not detected (Not detect); Sapovirus PCR Not detected (Not detect); Shig/EnteroinvasiveE coli EIEC Not detected (Not detect); Shigalike tox-prod E coli STEC Not detected (Not detect); Vibrio PCR Not detected (Not detect); Vibrio cholerae PCR Not detected (Not detect); Yersinia enterocolitica PCR Not detected (Not detect)
[2017-03-18 15:44] VITALS: BP 174/99
== END 2017-03-18 11:30 | disposition home health service (06) | DRG 372 ==
LOC: 2ANU 11:14 → EMEROO 11:14 → 2ANU 20:09 → SUATTDRO 03-17 00:49
PROVIDERS: ADMIT Internal Medicine; ATTEND Internal Medicine

== ENCOUNTER 2018-12-09 13:42 | Inpatient (IN) ==
[2018-12-09] MEDS ORDERED: Ipratropium/Albuterol Neb 3 ML ONE (13:48)
[2018-12-09] MEDS ORDERED: Ipratropium/Albuterol Neb 3 ML IH ONE (13:54)
[2018-12-09] MEDS ORDERED: methylPREDNISolone 125 MG/2 ML VIAL IVP ONE (13:54)
--- NOTE | 2018-12-09 13:58 | Emergency Department Note ---
Disposition Clinical Impression: Hypokalemia, Elevated troponin, Elevated brain natriuretic peptide (BNP) level, Cavitary pneumonia Dyspnea Qualifiers: Dyspnea type: shortness of breath Qualified Code(s): R06.02 - Shortness of breath Acute and chronic respiratory failure Qualifiers: Respiratory failure complication: unspecified whether with hypoxia or hypercapnia Qualified Code(s): J96.20 - Acute and chronic respiratory failure, unspecified whether with hypoxia or hypercapnia Vomiting Qualifiers: Vomiting type: unspecified Vomiting Intractability: non-intractable Nausea presence: with nausea Qualified Code(s): R11.2 - Nausea with vomiting, unspecified Diarrhea Qualifiers: Diarrhea type: unspecified type Qualified Code(s): R19.7 - Diarrhea, unspecified Disposition: Admitted As Inpatient Condition: Fair Referrals: Aren Malik Jr, MD [Primary Care Provider] - Forms: ED Satisfaction Letter General Adult HPI - General Chief complaint: ED Shortness of Breath/Dyspnea Stated complaint: UZAIR Time Seen by Provider: 12/09/18 13:52 Source: patient Limitations: no limitations - History of Present Illness Pain Scale: 4 - Related Data Home Medications Medication Instructions Recorded Confirmed Citalopram [CeleXA] 20 mg PO DAILY 02/05/16 11/12/18 Diclofenac Sodium [Voltaren] 75 mg PO HS 02/05/16 11/11/18 Loratadine [Claritin] 10 mg PO DAILY 02/05/16 11/12/18 Lovastatin [Mevacor] 40 mg PO HS 02/05/16 11/12/18 Metoprolol [Lopressor] 25 mg PO BID 02/05/16 11/12/18 Nitroglycerin [Nitrostat] 0.4 mg SL Q5M PRN 02/05/16 11/12/18 Roflumilast [Daliresp] 500 mcg PO DAILY 11/11/18 11/12/18 Aspirin [Lo-Dose Aspirin EC] 81 mg PO DAILY 11/12/18 11/12/18 Budesonide/Formoterol 160/4.5 2 puff IH BIDR 11/12/18 11/12/18 [Symbicort 160/4.5] L. Acidophilus/Pectin, Reserve 1 cap PO DAILY 11/12/18 11/12/18 [Acidophilus Probiotic Capsule] Multivitamin [One Daily] 1 tab PO DAILY 11/12/18 11/12/18 Umeclidinium [place] [Incruse 2 puff IH DAILY 11/12/18 11/12/18 Ellipta] raNITIdine HCl [Zantac] 150 mg PO BID 11/12/18 11/12/18 Previous Rx's Medication Instructions Recorded Albuterol Sulfate [Albuterol 2 puff IH Q4HR PRN #2 hfa.aer.ad 02/08/16 Inhaler] Clindamycin [Cleocin] 600 mg PO Q8HR 30 Days #90 capsule 11/19/18 GuaiFENesin ER [Mucinex] 600 mg PO BID PRN 30 Days #60 11/19/18 tbbp.12hr Menthol [Cough Drops] 9.1 mg PO Q2H PRN #0 lozenge 11/19/18 levoFLOXacin [Levaquin] 750 mg PO DAILY 30 Days #30 tablet 11/19/18 Allergies Allergy/AdvReac Type Severity Reaction Status Date / Time clarithromycin [From Biaxin] Allergy Gastrointestinal Verified 07/01/18 12:50 Upset codeine AdvReac See Verified 07/01/18 12:50 Comments lansoprazole [From Prevacid] AdvReac ulcer Verified 07/01/18 12:50 lisinopril AdvReac Cough Verified 07/01/18 12:50 meloxicam [From Mobic] AdvReac ulcer Verified 07/01/18 12:50 opium (anthroposophic) AdvReac nausea/vomi Verified 07/01/18 12:50 [Opium (Anthroposophic)] ting Past Medical History - Past Medical History Medical history: Reports: COPD, hypertension Surgical history: Reports: angioplasty/stent, breast surgery, cholecystectomy, hysterectomy, orthopedic, other, other Psychiatric history: Reports: anxiety - Social History Smoking Status: Former smoker Smokeless Tobacco Status: No Alcohol use: Reports: none Drug use: Reports: none Physical Exam - General Limitations: no limitations General appearance: alert, in no apparent distress Course Vital Signs Temperature 98.5 F 12/09/18 13:44 Pulse Rate 86 12/09/18 13:44 Respiratory Rate 18 12/09/18 13:44 Blood Pressure 110/71 12/09/18 13:44 O2 Sat by Pulse Oximetry 88 12/09/18 13:44 Temperature 98.5 F 12/09/18 13:44 Pulse Rate 86 12/09/18 13:44 Respiratory Rate 25 12/09/18 14:06 Blood Pressure 110/71 12/09/18 13:44 O2 Sat by Pulse Oximetry 95 12/09/18 14:06 Oxygen Delivery Oxygen Delivery Nasal Cannula Medical Decision Making - Lab Data Result diagrams: 12/09/18 13:50 12/09/18 13:50 Lab Results 12/09/18 12/09/18 12/09/18 Range/Units 13:50 13:50 13:50 WBC 10.3 (4.3-11.1) K/mcL RBC 3.55 L (3.82-4.97) M/mcL Hgb 10.5 L (11.5-15.4) g/dL Hct 32.4 L (35.3-44.9) % MCV 91.3 (83.0-100.0) fL MCH 29.6 (28.0-33.3) pg MCHC 32.4 (31.6-35.5) g/dL RDW 13.9 (11.5-14.5) % Plt Count 303 (140-400) K/mcL MPV 10.5 (9.4-12.4) fL Immature Gran % 0.5 (0-4) % Seg Neutrophils % 79.0 % Lymphocytes % 11.0 % Monocytes % 8.2 % Eosinophils % 1.1 % Basophils % 0.2 % Neutrophils # 8.1 (1.6-8.9) K/mcL Lymphocytes # 1.1 (0.6-4.6) K/mcL Monocytes # 0.8 (0.0-1.3) K/mcL Eosinophils # 0.1 (0.0-0.6) K/mcL Basophils # 0.0 (0.0-0.2) K/mcL Sample Site ABG pH (7.32-7.45) pH Units ABG pCO2 (35-45) mmHg ABG pO2 (85-104) mmHg ABG HCO3 (21-27) mEq/L ABG Total CO2 (20-26) mEq/L ABG O2 Saturation (95-98) % ABG Base Excess (-2 to 3) mEq/L Nicolas Test O2 Delivery Device Inspired O2 (1-15=lpm [id number]=%) Sodium 141 (136-145) mEq/L Potassium 3.0 L (3.5-5.1) mEq/L Chloride 95 L (98-107) mEq/L Carbon Dioxide 36 H (23-29) mEq/L BUN 9 (8-23) mg/dL Creatinine 0.54 L (0.60-1.20) mg/dL Est GFR ( Amer) > 60 (> 60) Est GFR (Non-Af Amer) > 60 (> 60) BUN/Creatinine Ratio 17 (6-26) Glucose 120 H (70-105) mg/dL Calculated Osmolality 292 (280-300) Lactic Acid 1.8 (0.5-2.2) mmol/L Calcium 8.4 L (8.6-10.3) mg/dL Troponin I 0.04 H* (< 0.04) ng/mL B-Natriuretic Peptide (Less than 100) pg/mL 12/09/18 12/09/18 Range/Units 13:50 15:40 WBC (4.3-11.1) K/mcL RBC (3.82-4.97) M/mcL Hgb (11.5-15.4) g/dL Hct (35.3-44.9) % MCV (83.0-100.0) fL MCH (28.0-33.3) pg MCHC (31.6-35.5) g/dL RDW (11.5-14.5) % Plt Count (140-400) K/mcL MPV (9.4-12.4) fL Immature Gran % (0-4) % Seg Neutrophils % % Lymphocytes % % Monocytes % % Eosinophils % % Basophils % % Neutrophils # (1.6-8.9) K/mcL Lymphocytes # (0.6-4.6) K/mcL Monocytes # (0.0-1.3) K/mcL Eosinophils # (0.0-0.6) K/mcL Basophils # (0.0-0.2) K/mcL Sample Site L Radial ABG pH 7.52 H (7.32-7.45) pH Units ABG pCO2 48 H (35-45) mmHg ABG pO2 144 H (85-104) mmHg ABG HCO3 39 H (21-27) mEq/L ABG Total CO2 40 H (20-26) mEq/L ABG O2 Saturation 99 H (95-98) % ABG Base Excess 14 H (-2 to 3) mEq/L Nicolas Test Positive O2 Delivery Device BiPAP Inspired O2 50.0 (1-15=lpm [id number]=%) Sodium (136-145) mEq/L Potassium (3.5-5.1) mEq/L Chloride (98-107) mEq/L Carbon Dioxide (23-29) mEq/L BUN (8-23) mg/dL Creatinine (0.60-1.20) mg/dL Est GFR ( Amer) (> 60) Est GFR (Non-Af Amer) (> 60) BUN/Creatinine Ratio (6-26) Glucose (70-105) mg/dL Calculated Osmolality (280-300) Lactic Acid (0.5-2.2) mmol/L Calcium (8.6-10.3) mg/dL Troponin I (< 0.04) ng/mL B-Natriuretic Peptide 292 H (Less than 100) pg/mL Critical Care Time Critical Care Time: Yes Total Critical Care Time: 35 Attestation: Critical care performed: Time is exclusive of separately billable procedures. Time includes: direct patient care, patient reassessment, coordination of patient care, interpretation of data (laboratory data, radiology data, and respiratory data), review of patient's medical records, medical consultation and documentation of patient care. Procedures included in critical care time: Procedures excluded from critical care time: Attestation Statement - Attestation Attestation: I examined this patient and my medical decision-making was reviewed with the Resident Physician. I agree with the documented findings, disposition and treatment plan as described except to the extent set forth below. Patient to the ED with shortness of breath. Patient states an onset of shortness of breath this morning. Patient had a recent admission in [place] for pneumonia. He was discharged to [facility] on antibiotics for a cavitary lesion in her lung. Her shortness of breath worsened today. Subjective fever. No chest pain. Minimal swelling her feet. On examination she is visibly dyspneic. Ta chypneic. Tripoding. Lungs with diffuse expiratory wheezing. Trace edema to her feet. Plan. Septic workup. Patient given steroids, nebs, placed on BiPAP I reviewed the EKG with the resident Patient is much improved at this time. She was taken off the BiPAP. She is tolerating by mouth. She is breathing comfortably at this time. Antibiotics ordered. Her chest x-ray has improved from prior. CT shows improvement in the cavitary lesion. Will admit. Patient admitted to medicine.
--- NOTE | 2018-12-09 14:06 | Emergency Department Note ---
Disposition Clinical Impression: Hypokalemia, Elevated troponin, Elevated brain natriuretic peptide (BNP) level, Cavitary pneumonia Dyspnea Qualifiers: Dyspnea type: shortness of breath Qualified Code(s): R06.02 - Shortness of breath Acute and chronic respiratory failure Qualifiers: Respiratory failure complication: unspecified whether with hypoxia or hypercapnia Qualified Code(s): J96.20 - Acute and chronic respiratory failure, unspecified whether with hypoxia or hypercapnia Vomiting Qualifiers: Vomiting type: unspecified Vomiting Intractability: non-intractable Nausea presence: with nausea Qualified Code(s): R11.2 - Nausea with vomiting, unspecified Diarrhea Qualifiers: Diarrhea type: unspecified type Qualified Code(s): R19.7 - Diarrhea, unspecified Disposition: Admitted As Inpatient Condition: Fair General Adult HPI - General Chief complaint: ED Shortness of Breath/Dyspnea Stated complaint: UZAIR Time Seen by Provider: 12/09/18 13:52 Source: patient Limitations: no limitations Nursing Notes Reviewed: Yes Vital Signs Reviewed: Yes - History of Present Illness HPI Narrative: The patient is a 72-year-old female with past medical history including COPD on 5 L of oxygen, hypertension, coronary artery disease status post stent placement on plavix, status post spinal stimulator implant, presenting to the emergency department via EMS with chief complaint of shortness of breath. The patient was admitted to the hospital a month ago for acute hypoxic respiratory failure secondary to acute COPD exacerbation and cavitary pneumonia. The patient had a CTA of the chest that showed cavitary lesion in the right lower lobe. She was initially started on Zosyn and azithromycin. She received methylprednisolone bronchodilators and BiPAP. She was in the ICU. The patient was discharged home on a prednisone taper, four-week course of clindamycin and Levaquin to a nursing facility. The patient left the nursing facility 6 days ago. The family states she did not complete her antibiotic course and they stopped it. Patient complains of increased productive cough with change in color sputum for the past 4 days. She complains of generalized tiredness. This morning, she complains of worsening shortness of breath. She denies chest pain, lightheadedness him abdo joan pain, nausea. Family states she has had low-grade fevers. Patient also complains of multiple episodes of diarrhea daily since been discharged from the hospital. Yesterday she also complains of a red spotted rash on her abdomen and back that is itchy. She was told to take Benadryl without minimal improvement. This afternoon, EMS was called for respiratory distress and the patient was tra nsferred here for further evaluation. In route, the patient received a DuoNeb treatment which the patient states helped. Pain Scale: 4 - Related Data Home Medications Medication Instructions Recorded Confirmed Citalopram [CeleXA] 20 mg PO DAILY 02/05/16 11/12/18 Diclofenac Sodium [Voltaren] 75 mg PO HS 02/05/16 11/11/18 Loratadine [Claritin] 10 mg PO DAILY 02/05/16 11/12/18 Lovastatin [Mevacor] 40 mg PO HS 02/05/16 11/12/18 Metoprolol [Lopressor] 25 mg PO BID 02/05/16 11/12/18 Nitroglycerin [Nitrostat] 0.4 mg SL Q5M PRN 02/05/16 11/12/18 Roflumilast [Daliresp] 500 mcg PO DAILY 11/11/18 11/12/18 Aspirin [Lo-Dose Aspirin EC] 81 mg PO DAILY 11/12/18 11/12/18 Budesonide/Formoterol 160/4.5 2 puff IH BIDR 11/12/18 11/12/18 [Symbicort 160/4.5] L. Acidophilus/Pectin, [place] 1 cap PO DAILY 11/12/18 11/12/18 [Acidophilus Probiotic Capsule] Multivitamin [One Daily] 1 tab PO DAILY 11/12/18 11/12/18 Umeclidinium [place] [Incruse 2 puff IH DAILY 11/12/18 11/12/18 Ellipta] raNITIdine HCl [Zantac] 150 mg PO BID 11/12/18 11/12/18 Previous Rx's Medication Instructions Recorded Albuterol Sulfate [Albuterol 2 puff IH Q4HR PRN #2 hfa.aer.ad 02/08/16 Inhaler] Clindamycin [Cleocin] 600 mg PO Q8HR 30 Days #90 capsule 11/19/18 GuaiFENesin ER [Mucinex] 600 mg PO BID PRN 30 Days #60 11/19/18 tbbp.12hr Menthol [Cough Drops] 9.1 mg PO Q2H PRN #0 lozenge 11/19/18 levoFLOXacin [Levaquin] 750 mg PO DAILY 30 Days #30 tablet 11/19/18 Allergies Allergy/AdvReac Type Severity Reaction Status Date / Time clarithromycin [From Biaxin] Allergy Gastrointestinal Verified 07/01/18 12:50 Upset codeine AdvReac See Verified 07/01/18 12:50 Comments lansoprazole [From Prevacid] AdvReac ulcer Verified 07/01/18 12:50 lisinopril AdvReac Cough Verified 07/01/18 12:50 meloxicam [From Mobic] AdvReac ulcer Verified 07/01/18 12:50 opium (anthroposophic) AdvReac nausea/vomi Verified 07/01/18 12:50 [Opium (Anthroposophic)] ting All systems ED: reviewed and negative except as stated. Review of Systems: As Per HPI Constitutional: Reports: fever, chills Cardiovascular: Denies: chest pain, palpitations Respiratory: Reports: cough, dyspnea, wheezes, sputum production Gastrointestinal: Reports: diarrhea. Denies: abdominal pain, nausea, hematochezia Genitourinary: Denies: dysuria Integumentary: Reports: rash, pruritus Neurological: Denies: headache, weakness Past Medical History - Past Medical History Attestation: Yes The following information was validated with the patient. Source: patient Medical history: Reports: COPD, hypertension Surgical history: Reports: angioplasty/stent, breast surgery, cholecystectomy, hysterectomy, orthopedic, other, other Psychiatric history: Reports: anxiety - Social History Smoking Status: Former smoker Smokeless Tobacco Status: No Alcohol use: Reports: none Drug use: Reports: none Physical Exam - General Limitations: no limitations General appearance: alert, in distress (in respiratory distress, tachypneic) - Head Head exam: atraumatic, normocephalic - Eye Eye exam: Present: normal appearance, EOMI. Absent: conjunctival injection - ENT ENT exam: normal oropharynx - Neck Neck exam: Present: trachea midline - Chest Chest inspection: Present: normal inspection, symmetric chest wall rise - Respiratory Respiratory exam: Present: other (Diminished breath sounds bilaterally with mild expiratory wheezing) - Cardiovascular Cardiovascular exam: Present: regular rate, normal rhythm, normal heart sounds, other (bilateral radial pulses equal) - Abdominal Exam Abdominal exam: Present: soft, Non-Tender. Absent: distention - Extremities Exam Extremities exam: Present: normal capillary refill. Absent: pedal edema - Neurological Exam Neurological exam: Present: alert, oriented X3 - Psychiatric Psychiatric exam: Present: normal affect, normal mood - Skin Skin exam: Present: warm, dry, other (rash to the abdomen and lower chest, no hives or pustules) Course Vital Signs Temperature 98.5 F 12/09/18 13:44 Pulse Rate 86 12/09/18 13:44 Respiratory Rate 18 12/09/18 13:44 Blood Pressure 110/71 12/09/18 13:44 O2 Sat by Pulse Oximetry 88 12/09/18 13:44 Temperature 98.5 F 12/09/18 13:44 Pulse Rate 86 12/09/18 13:44 Respiratory Rate 25 12/09/18 14:06 Blood Pressure 110/71 12/09/18 13:44 O2 Sat by Pulse Oximetry 95 12/09/18 14:06 Oxygen Delivery Oxygen Delivery Nasal Cannula Medical Decision Making - MDM Narrative Medical decision making narrative: Patient is 88% on 5 L of oxygen per nasal cannula which is her home oxygen use. We will place the patient on BiPAP and give triple DuoNeb treatments. We will obtain a septic workup given the patient's recent history of cavitary pneumonia. She was supposed to be on 4 weeks of antibiotics which she had stopped. We will check CBC, BMP, troponin, lactate, blood cultures, BNP, EKG, chest x-ray, urinalysis. Also give the patient Solu-Medrol. For the patient's diarrhea we will obtain C. difficile toxin. Will also obtain CT chest to re-evaluate the cavitary lesion 14:30 Discussed code status with the patient and the daughter at bedside. Patient does not want chest compressions or intubation. She is DNR-CCA- DNI. This was established on her prior ICU stay and confirmed here today. A form was filled out to document this. 15:20 Labs and imaging reviewed. No leukocytosis. Potassium is 3.0. CT chest shows slight decrease in the right lower lobe cavitary mass with improving right lower lobe airspace disease. There is also unchanged trace pericardial effusion. Troponin 0.04. We will obtain an ABG as the patient has been tolerating BiPAP well. Patient states she feels much better. No leukocytosis, lactate is normal. Micro-from the patient's right lower lobe cavitary lesion from bronchoscopy on her prior hospitalization grew Adrienne albicans. Will give broad spectrum antibiotics. 16:[address] Nichols, who accepts admission for acute on chronic respiratory failure. Patient now oxygenating on oxymask. - Medical Records Medical records reviewed: Yes I reviewed the patient's medical records. - Lab Data Lab results reviewed: Yes I reviewed the patient's lab results. Result diagrams: 12/09/18 13:50 12/09/18 13:50 Lab Results 12/09/18 12/09/18 12/09/18 Range/Units 13:50 13:50 13:50 WBC 10.3 (4.3-11.1) K/mcL RBC 3.55 L (3.82-4.97) M/mcL Hgb 10.5 L (11.5-15.4) g/dL Hct 32.4 L (35.3-44.9) % MCV 91.3 (83.0-100.0) fL MCH 29.6 (28.0-33.3) pg MCHC 32.4 (31.6-35.5) g/dL RDW 13.9 (11.5-14.5) % Plt Count 303 (140-400) K/mcL MPV 10.5 (9.4-12.4) fL Immature Gran % 0.5 (0-4) % Seg Neutrophils % 79.0 % Lymphocytes % 11.0 % Monocytes % 8.2 % Eosinophils % 1.1 % Basophils % 0.2 % Neutrophils # 8.1 (1.6-8.9) K/mcL Lymphocytes # 1.1 (0.6-4.6) K/mcL Monocytes # 0.8 (0.0-1.3) K/mcL Eosinophils # 0.1 (0.0-0.6) K/mcL Basophils # 0.0 (0.0-0.2) K/mcL Sample Site ABG pH (7.32-7.45) pH Units ABG pCO2 (35-45) mmHg ABG pO2 (85-104) mmHg ABG HCO3 (21-27) mEq/L ABG Total CO2 (20-26) mEq/L ABG O2 Saturation (95-98) % ABG Base Excess (-2 to 3) mEq/L Nicolas Test O2 Delivery Device Inspired O2 (1-15=lpm [id number]=%) Sodium 141 (136-145) mEq/L Potassium 3.0 L (3.5-5.1) mEq/L Chloride 95 L (98-107) mEq/L Carbon Dioxide 36 H (23-29) mEq/L BUN 9 (8-23) mg/dL Creatinine 0.54 L (0.60-1.20) mg/dL Est GFR ( Amer) > 60 (> 60) Est GFR (Non-Af Amer) > 60 (> 60) BUN/Creatinine Ratio 17 (6-26) Glucose 120 H (70-105) mg/dL Calculated Osmolality 292 (280-300) Lactic Acid 1.8 (0.5-2.2) mmol/L Calcium 8.4 L (8.6-10.3) mg/dL Troponin I 0.04 H* (< 0.04) ng/mL B-Natriuretic Peptide (Less than 100) pg/mL 12/09/18 12/09/18 Range/Units 13:50 15:40 WBC (4.3-11.1) K/mcL RBC (3.82-4.97) M/mcL Hgb (11.5-15.4) g/dL Hct (35.3-44.9) % MCV (83.0-100.0) fL MCH (28.0-33.3) pg MCHC (31.6-35.5) g/dL RDW (11.5-14.5) % Plt Count (140-400) K/mcL MPV (9.4-12.4) fL Immature Gran % (0-4) % Seg Neutrophils % % Lymphocytes % % Monocytes % % Eosinophils % % Basophils % % Neutrophils # (1.6-8.9) K/mcL Lymphocytes # (0.6-4.6) K/mcL Monocytes # (0.0-1.3) K/mcL Eosinophils # (0.0-0.6) K/mcL Basophils # (0.0-0.2) K/mcL Sample Site L Radial ABG pH 7.52 H (7.32-7.45) pH Units ABG pCO2 48 H (35-45) mmHg ABG pO2 144 H (85-104) mmHg ABG HCO3 39 H (21-27) mEq/L ABG Total CO2 40 H (20-26) mEq/L ABG O2 Saturation 99 H (95-98) % ABG Base Excess 14 H (-2 to 3) mEq/L Nicolas Test Positive O2 Delivery Device BiPAP Inspired O2 50.0 (1-15=lpm [id number]=%) Sodium (136-145) mEq/L Potassium (3.5-5.1) mEq/L Chloride (98-107) mEq/L Carbon Dioxide (23-29) mEq/L BUN (8-23) mg/dL Creatinine (0.60-1.20) mg/dL Est GFR ( Amer) (> 60) Est GFR (Non-Af Amer) (> 60) BUN/Creatinine Ratio (6-26) Glucose (70-105) mg/dL Calculated Osmolality (280-300) Lactic Acid (0.5-2.2) mmol/L Calcium (8.6-10.3) mg/dL Troponin I (< 0.04) ng/mL B-Natriuretic Peptide 292 H (Less than 100) pg/mL - Radiology Data Radiology results reviewed: Yes I reviewed the patient's radiology results. Chest X-Ray 12/09/18 13:52 IMPRESSION: Interval decrease in size of left pleural effusion. Otherwise persistent small bilateral pleural effusions with adjacent airspace opacities either atelectasis or pneumonia. D/ / Ayse Justin MD / Ayse Justin MD Interpreting Provider: Ayse Justin MD Chest CT 12/09/18 14:37 IMPRESSION: 1. Slight decrease in the right lower lobe cavitary mass with improving right lower lobe airspace disease. The differential diagnosis includes cavitary pneumonia, fungal infection, tuberculosis, infected bulla or less likely, malignancy. 2. Unchanged trace pericardial effusion. D/ / Aurelio Walsh MD / Aurelio Walsh MD Interpreting Provider: Aurelio Walsh MD - EKG Data EKG #1 EKG attestation: Yes I reviewed and interpreted this EKG. EKG results narrative: EKG was obtained at 1353 shows sinus rhythm with heart rate 98. QRS duration 106, QTC 369, there was much artifact Repeat EKG at 15: 17 shows sinus rhythm with heart rate 94, QRS duration 102, QTC 448, QTC 561. There is again artifact on this EKG. No ST elevation or depression noted.
[2018-12-09 14:16] LABS: Basophils % 0.2 %; Eosinophils # 0.1 K/mcL (0.0-0.6); Eosinophils % 1.1 %; Hematocrit 32.4 % (35.3-44.9); Hemoglobin 10.5 g/dL (11.5-15.4); Immature Granulocytes % 0.5 % (0-4); Lymphocytes # 1.1 K/mcL (0.6-4.6); Mean Corpuscular HGB Conc 32.4 g/dL (31.6-35.5); Mean Corpuscular Hemoglobin 29.6 pg (28.0-33.3); Mean Corpuscular Volume 91.3 fL (83.0-100.0); Mean Platelet Volume 10.5 fL (9.4-12.4); Monocytes # 0.8 K/mcL (0.0-1.3); Monocytes % 8.2 %; Neutrophils # 8.1 K/mcL (1.6-8.9); Platelet Count 303 K/mcL (140-400); Red Blood Count 3.55 M/mcL (3.82-4.97); Red Cell Distribution Width 13.9 % (11.5-14.5)
[2018-12-09 14:51] LABS: BUN/Creatinine Ratio 17 (6-26); Blood Urea Nitrogen 9 mg/dL (8-23); Calcium 8.4 mg/dL (8.6-10.3); Carbon Dioxide 36 mEq/L (23-29); Chloride 95 mEq/L (98-107); Glucose 120 mg/dL (70-105); Osmolality,Calculated 292 (280-300); Sodium 141 mEq/L (136-145); Troponin I 0.04 ng/mL (< 0.04); eGFR For Non-African Americans > 60 (> 60)
[2018-12-09] MEDS ORDERED: Piperacillin/Tazobactam 3.375 GM in 0.9 % Sodium Chloride Mini Bag 100 ML IVPB ONE (15:40)
[2018-12-09] MEDS ORDERED: Azithromycin 500 MG in D5% in Water 250 ML IVPB ONE (15:40)
[2018-12-09 15:43] LABS: ABG Base Excess 14 mEq/L (-2 to 3); ABG HCO3 39 mEq/L (21-27); ABG Oxygen Saturation 99 % (95-98); ABG PCO2 48 mmHg (35-45); ABG PH 7.52 pH Units (7.32-7.45); ABG PO2 144 mmHg (85-104); ABG TCO2 40 mEq/L (20-26)
[2018-12-09] MEDS ORDERED: Ondansetron 4 MG/2 ML VIAL IM ONE (16:10)
[2018-12-09] MEDS ORDERED: Potassium Chloride 40 MEQ, Lidocaine 1% 2 ML in D5% in Water 500 ML IVPB ONE (16:34)
--- NOTE | 2018-12-09 17:24 | Internal Med History&Physical ---
<Rashaad Powell - Last Filed: 12/09/18 18:16> Date of Encounter: 12/09/18 Time of Encounter: 17:22 Internal Medicine - H&P: HPI Chief complaint: Shortness of breath Admitted From: Emergency Dept Plans for Post Hospital Care: Home History of present illness: Ms. Peck is a 73 year old female with history of COPD on 3 L of oxygen at home, hypertension presents with chief complaint of shortness of breath. Patient was admitted to [facility] on November 11 and was found to have a cavitary lung lesion which was evaluated by pulmonology and patient underwent bronchoscopy. At that time passes results showed it was negative for malignancy. She was treated for pneumonia with clindamycin and Levaquin and sent home on a four-week course of anbiotics. Patient was initially sent to a nursing facility for physical rehabilitation. At that time she reports she initially improved in terms her respirations status and also was able to improve her physical strength. However in the last week of her stay patient reports she started having worsening shortness of breath and coughing which resulted in nausea and vomiting. At the long-term she reports there was a viral illness going around people report wearing masks. She was also tested for TB with a PPD test at the long-term which was negative. She denies history of incarceration, travel abroad, IV drug use. Furthermore patient reports in the past week she has had diarrhea up to 4 times a day, watery. She reports a history of Clostridium difficile many years ago and feels like this is similar and situation. She denies any hematochezia, melena, hematemesis, hemoptysis. She denies any fevers and chills at home. Patient started having a maculopapular rash on her trunk and back starting yesterday and called her PCP who told her to discontinue clindamycin. In the emergency room patient had a repeat CT scan which showed slight decrease in the right lower lobe cavitary mass with improving right lower lobe airspace disease. Reviewing microbiology from previous bronchoscopy fungal cultures grew sudarshan albicans. She is afebrile, without tachycardia, without leukocytosis, with normal lactic acid. She was given Zosyn and azithromycin on admission. She is requiring 6 L of oxygen saturating 99%. Past Med Surg Social Fam HX - Past Medical History Medical history: COPD, hypertension Additional medical history: mitral valve prolapse Psychiatric history: anxiety - Past Surgical History Surgical History: angioplasty/stent, breast surgery, cholecystectomy, hysterectomy, orthopedic, other, other Additional surgical history: left breast. back surgery. EGD. 2 heart stents. - Social History Smoking Status: Former smoker Smokeless Tobacco Status: No Alcohol use: none Drug use: none - Family History Brother Living Status: Hx Family Cardiac Disorders: Yes Mother Living Status: Hx Family Cardiac Disorders: Yes ("artery disease", CHF) Hx Family GI Disorders: Yes (ulcers) Hx Family Endocrine Disorder: Yes Father Living Status: Hx Family Cardiac Disorders: Yes ("valve problems") Internal Medicine - H&P: Meds Citalopram [CeleXA] 20 mg PO DAILY 02/05/16 [History] Loratadine [Claritin] 10 mg PO DAILY 02/05/16 [History] Lovastatin [Mevacor] 40 mg PO HS 02/05/16 [History] Metoprolol [Lopressor] 25 mg PO BID 02/05/16 [History] Nitroglycerin [Nitrostat] 0.4 mg SL Q5M PRN 02/05/16 [History] Albuterol Sulfate [Albuterol Inhaler] 2 puff IH Q4HR PRN #2 [email or web address] 02/08/16 [Rx] Roflumilast [Daliresp] 500 mcg PO DAILY 11/11/18 [History] Aspirin [Lo-Dose Aspirin EC] 81 mg PO DAILY 11/12/18 [History] Budesonide/Formoterol 160/4.5 [Symbicort 160/4.5] 2 puff IH BIDR 11/12/18 [History] L. Acidophilus/Pectin, [place] [Acidophilus Probiotic Capsule] 1 cap PO DAILY 11/12/18 [History] Multivitamin [One Daily] 1 tab PO DAILY 11/12/18 [History] Umeclidinium Cooter [Incruse Ellipta] 2 puff IH DAILY 11/12/18 [History] raNITIdine HCl [Zantac] 150 mg PO BID 11/12/18 [History] GuaiFENesin ER [Mucinex] 600 mg PO BID PRN 30 Days #60 tbbp.12hr 11/19/18 [Rx] Menthol [Cough Drops] 9.1 mg PO Q2H PRN #0 lozenge 11/19/18 [Rx] Ipratropium/Albuterol Neb [Duoneb] 3 ml IH Q4HR PRN 12/09/18 [History] Melatonin 6 mg PO HS 12/09/18 [History] Allergy/AdvReac Type Severity Reaction Status Date / Time clarithromycin [From Biaxin] Allergy Gastrointestinal Verified 07/01/18 12:50 Upset codeine AdvReac See Verified 07/01/18 12:50 Comments lansoprazole [From Prevacid] AdvReac ulcer Verified 07/01/18 12:50 lisinopril AdvReac Cough Verified 07/01/18 12:50 meloxicam [From Mobic] AdvReac ulcer Verified 07/01/18 12:50 opium (anthroposophic) AdvReac nausea/vomi Verified 07/01/18 12:50 [Opium (Anthroposophic)] ting All Systems PM: A 10-system review of systems was performed and is negative for pertinent findings except as documented above in the HPI. Review of systems: Constitutional: Denies fever, chills HEENT: Denies headache, trauma, blurry vision, eye discharge, ear pain, ear discharge neck pain, sore throat, rhinorrhea Heart: Denies chest pain palpitations, LE edema Lungs: Reports shortness of breath cough Abdomen: Denies abdominal pain reports nausea vomiting reports MSK: Denies back pain, falls, joint pain Kidney: Denies dysuria, hematuria Skin: Denies rash, ulcers Neuro: Denies numbness and tingling Psych: denies anxiety, depression - Constitutional Vitals: Temp Pulse Resp BP Pulse Ox 98.5 F 86 25 110/71 95 12/09/18 13:44 12/09/18 13:44 12/09/18 14:06 12/09/18 13:44 12/09/18 14:06 Exam: General: pleasant, mild distress HEENT: Head atraumatic, normocephalic, EOMI, PERRL, absent ear discharge or trauma, Moist Mucous Membranes, uvula midline Neck: nontender to palpation, absent lymphadenopathy, Cardiovascualr: Regular rate and rhythm with no murmur, absent gallops or rubs, absent pedal edema, radial pulses 2 out of 4 Lungs: Mild Bibasilar crackles, absent wheezing, diminished throughout not in respiratory distress Abdomen: Soft nontender, nondistended positive bowel sounds, absent hepatomegaly Skin: warm and dry, macular papular rash on the back and trunk, absent open wou nds and nodules MSK: absent clubbing, cyanosis, joints without swelling Neuro: Alert oriented 3, cranial nerves intact Psych: good insight and judgment Internal Med - H&P Results - Labs CBC & Chem 7: 12/09/18 13:50 12/09/18 13:50 Labs: Short CBC 12/09/18 Range/Units 13:50 WBC 10.3 (4.3-11.1) K/mcL Hgb 10.5 L (11.5-15.4) g/dL Hct 32.4 L (35.3-44.9) % Plt Count 303 (140-400) K/mcL Neutrophils # 8.1 (1.6-8.9) K/mcL BMP 12/09/18 13:50 Sodium 141 Potassium 3.0 L Chloride 95 L Carbon Dioxide 36 H BUN 9 Creatinine 0.54 L Glucose 120 H Calcium 8.4 L Cardiac Enzymes 12/09/18 Range/Units 13:50 Troponin I 0.04 H* (< 0.04) ng/mL - ABG Interpretation ABG results: 12/09/18 15:40 ABG pH 7.52 H ABG pCO2 48 H ABG pO2 144 H ABG HCO3 39 H ABG Total CO2 40 H ABG O2 Saturation 99 H ABG Base Excess 14 H - Impressions ITS Impressions Chest X-Ray 12/09/18 13:52 IMPRESSION: Interval decrease in size of left pleural effusion. Otherwise persistent small bilateral pleural effusions with adjacent airspace opacities either atelectasis or pneumonia. D/ / Ayse Justin MD / Ayse Justin MD Interpreting Provider: Ayse Justin MD Chest CT 12/09/18 14:37 IMPRESSION: 1. Slight decrease in the right lower lobe cavitary mass with improving right lower lobe airspace disease. The differential diagnosis includes cavitary pneumonia, fungal infection, tuberculosis, infected bulla or less likely, malignancy. 2. Unchanged trace pericardial effusion. D/ / Aurelio Walsh MD / Aurelio Walsh MD Interpreting Provider: Aurelio Walsh MD - Assessment and Plan (1) Acute exacerbation of chronic obstructive airways disease Current Visit: Yes Status: Acute Assessment and plan: Patient presents with acute exacerbation of chronic obstructive airway disease She is requiring more oxygen than what she is at home. She has increase cough and sputum production. We will start her on steroids, nebulizer treatments, broad spectrum antibiotics. (2) Cavitary pneumonia Current Visit: Yes Status: Acute Assessment and plan: Patient has had a cavitary lung lesion since October 2017 and was evaluated at [facility]. At that time bronchoscopy was done and path results were negative for malignancy and BAL culture grew sudarshan albicans. She was on clindamycin and Levaquin after discharge. Repeat CT during this admission shows decreasing size of cavitary lesion. Patient family reports patient had a negative TB test at the nursing facility we will try to obtain records. She does not need any surgical criteria. Currently we will start patient on broad-spectrum antibiotics vancomycin, Zosyn, Levaquin and also consult infectious disease for further recommendations. (3) Diarrhea Current Visit: Yes Status: Suspected Assessment and plan: Patient has had diarrhea for 1 week. She reports it as watery bowel movements that she has 4 times a day There is risk of C. difficile as she was on clindamycin. We will start patient on empiric vancomycin and await C. difficile test results. Qualifiers: Diarrhea type: infectious Qualified Code(s): A09 - Infectious gastroenteritis and colitis, unspecified (4) DVT prophylaxis Current Visit: Yes Status: Acute Assessment and plan: Heparin subcutaneous (5) Hypokalemia Current Visit: Yes Status: Acute Assessment and plan: Secondary to diarrhea replacing. (6) Elevated troponin Current Visit: Yes Status: Acute Assessment and plan: Patient has elevated troponin of 0.05 She denies chest pain EKG is normal sinus rhythm without ST elevation or depression. We will trend troponin. Likely demand ischemia (7) Drug-induced skin rash Current Visit: Yes Status: Acute Assessment and plan: Patient has a rash on her trunk and her back that is macular papular likely secondary to clindamycin which is now discontinued. She does not have eosinophilia, leukocytosis on CBC. There is no areas of skin that are breaking down or pustular. We will continue monitor. - Time Spent With Patient Total time spent is greater than 50% in coordination of care (as documented) at patient's floor/unit and/or counseling patient: <Marilee Thakkar - Last Filed: 12/09/18 18:56> Date of Encounter: 12/09/18 Internal Medicine - H&P: HPI History of present illness: Ms. Peck is a 73 year old female All Systems PM: A 10-system review of systems was performed and is negative for pertinent findings except as documented above in the HPI. - Constitutional Vitals: Temp Pulse Resp BP Pulse Ox 98.5 F 59 18 97/63 99 12/09/18 13:44 12/09/18 17:35 12/09/18 17:35 12/09/18 17:35 12/09/18 17:35 Internal Med - H&P Results - Labs CBC & Chem 7: 12/09/18 13:50 12/09/18 13:50 Labs: Short CBC 12/09/18 Range/Units 13:50 WBC 10.3 (4.3-11.1) K/mcL Hgb 10.5 L (11.5-15.4) g/dL Hct 32.4 L (35.3-44.9) % Plt Count 303 (140-400) K/mcL Neutrophils # 8.1 (1.6-8.9) K/mcL BMP 12/09/18 13:50 Sodium 141 Potassium 3.0 L Chloride 95 L Carbon Dioxide 36 H BUN 9 Creatinine 0.54 L Glucose 120 H Calcium 8.4 L Cardiac Enzymes 12/09/18 Range/Units 13:50 Troponin I 0.04 H* (< 0.04) ng/mL - ABG Interpretation ABG results: 12/09/18 15:40 ABG pH 7.52 H ABG pCO2 48 H ABG pO2 144 H ABG HCO3 39 H ABG Total CO2 40 H ABG O2 Saturation 99 H ABG Base Excess 14 H - Impressions ITS Impressions Chest X-Ray 12/09/18 13:52 IMPRESSION: Interval decrease in size of left pleural effusion. Otherwise persistent small bilateral pleural effusions with adjacent airspace opacities either atelectasis or pneumonia. D/ / Ayse Justin MD / Ayse Justin MD Interpreting Provider: Ayse Justin MD Chest CT 12/09/18 14:37 IMPRESSION: 1. Slight decrease in the right lower lobe cavitary mass with improving right lower lobe airspace disease. The differential diagnosis includes cavitary pneumonia, fungal infection, tuberculosis, infected bulla or less likely, malignancy. 2. Unchanged trace pericardial effusion. D/ / Aurelio Walsh MD / Aurelio Walsh MD Interpreting Provider: Aurelio Walsh MD - Time Spent With Patient Total time spent is greater than 50% in coordination of care (as documented) at patient's floor/unit and/or counseling patient: - Attending Attestation I examined this patient and my medical decision-making was reviewed with the Resident Physician. I agree with the documented findings, disposition and treatment plan as described except to the extent set forth below.
[2018-12-09] MEDS ORDERED: Naloxone 0.4 MG/ML INJ IVP PRN (18:11)
[2018-12-09] MEDS ORDERED: Ringers Solution, Lactated 1,000 ML ONE (18:39)
[2018-12-09 20:03] LABS: Adenovirus Not Detected (Not Detect); Bordetella Pertussis Not Detected (Not Detect); Chlamydophila pneumoniae Not Detected (Not Detect); Coronavirus 229E Not Detected (Not Detect); Coronavirus HKU1 Not Detected (Not Detect); Coronavirus NL63 Not Detected (Not Detect); Coronavirus OC43 Not Detected (Not Detect); Human Metapneumovirus Not Detected (Not Detect); Human Rhinovirus/Enterovirus Not Detected (Not Detect); Influenza A Subtype 2009 H1 Not Detected (Not Detect); Influenza A Untypeable Not Detected (Not Detect); Influenza B Not Detected (Not Detect); Mycoplasma pneumoniae Not Detected (Not Detect); Parainfluenza Virus 1 Not Detected (Not Detect); Parainfluenza Virus 2 Not Detected (Not Detect); Parainfluenza Virus 3 Not Detected (Not Detect); Parainfluenza Virus 4 Not Detected (Not Detect); Respiratory Syncytial Virus Not Detected (Not Detect)
[2018-12-09] MEDS ORDERED: *HR* LORazepam 2 MG/ML VIAL IVP ONE (21:50)
[2018-12-09] MEDS: Ipratropium/Albuterol Neb 3 ML IH SCH (22:09)
[2018-12-09] MEDS: *HR* Heparin 5,000 UNIT/ML VIAL SQ SCH (22:55)
[2018-12-09] MEDS: Vancomycin Oral Soln 125 MG/2.5 ML UDC PO SCH (23:27)
[2018-12-09] MEDS: Ringers Solution, Lactated 1,000 ML IVC SCH (23:33)
[2018-12-10] MEDS ORDERED: *HR* Promethazine 25 MG/ML VIAL IVP PRN (00:02)
[2018-12-10] MEDS: Piperacillin/Tazobactam 3.375 GM in 0.9 % Sodium Chloride Mini Bag 100 ML IVPB SCH ×4 (00:45→23:07)
[2018-12-10 01:00] LABS: Basophils % 0.1 %; Hematocrit 30.8 % (35.3-44.9); Hemoglobin 9.9 g/dL (11.5-15.4); Immature Granulocytes % 0.5 % (0-4); Lymphocytes # 0.3 K/mcL (0.6-4.6); Lymphocytes % 4.2 %; Mean Corpuscular HGB Conc 32.1 g/dL (31.6-35.5); Mean Corpuscular Hemoglobin 29.4 pg (28.0-33.3); Mean Corpuscular Volume 91.4 fL (83.0-100.0); Mean Platelet Volume 10.4 fL (9.4-12.4); Monocytes % 0.5 %; Neutrophils # 7.2 K/mcL (1.6-8.9); Platelet Count 297 K/mcL (140-400); Red Blood Count 3.37 M/mcL (3.82-4.97); Red Cell Distribution Width 14.1 % (11.5-14.5); Segmented Neutrophils % 94.7 %
[2018-12-10 01:11] LABS: BUN/Creatinine Ratio 13 (6-26); Blood Urea Nitrogen 7 mg/dL (8-23); Calcium 8.3 mg/dL (8.6-10.3); Carbon Dioxide 33 mEq/L (23-29); Chloride 96 mEq/L (98-107); Glucose 178 mg/dL (70-105); Osmolality,Calculated 286 (280-300); Potassium 3.3 mEq/L (3.5-5.1); Sodium 137 mEq/L (136-145); eGFR For Non-African Americans > 60 (> 60)
[2018-12-10] MEDS: Ipratropium/Albuterol Neb 3 ML IH SCH ×4 (04:06→22:21)
[2018-12-10] MEDS: *HR* Heparin 5,000 UNIT/ML VIAL SQ SCH ×2 (06:24→12:20)
--- NOTE | 2018-12-10 07:52 | Internal Med Progress Note ---
<Rashaad Powell - Last Filed: 12/10/18 10:05> Hospitalist Progress Note - Encounter Date of Encounter: 12/10/18 Time of Encounter: 10:05 - Subjective Interval History: Patient reports her breathing has improved since yesterday. She does not have any chest pain, abdominal pain, nausea, vomiting. She continues to have sameera rrhea. Her C. difficile toxin was negative. - Exam Vitals: Temp Pulse Resp BP Pulse Ox 98.1 F 118 28 138/83 91 12/10/18 06:58 12/10/18 06:58 12/10/18 06:58 12/10/18 06:58 12/10/18 06:58 Exam: General: pleasant, mild distress HEENT: Head atraumatic, normocephalic, EOMI, PERRL, absent ear discharge or trauma, Moist Mucous Membranes, uvula midline Neck: nontender to palpation, absent lymphadenopathy, Cardiovascualr: Sinus tachycardia with no murmur, absent gallops or rubs, absent pedal edema, radial pulses 2 out of 4 Lungs: Clear but diminished throughout not in respiratory distress Abdomen: Soft nontender, nondistended positive bowel sounds, absent hepatomegaly Skin: warm and dry, macular papular rash on the back and trunk, absent open wounds and nodules MSK: absent clubbing, cyanosis, joints without swelling Neuro: Alert oriented 3, cranial nerves intact Psych: good insight and judgment - Assessment and Plan (1) Acute exacerbation of chronic obstructive airways disease Current Visit: Yes Status: Acute Assessment and Plan: Patient presents with acute exacerbation of chronic obstructive airway disease She is requiring more oxygen than what she is at home. Currently on 6 L high flow nasal cannula. Procedure shortness of breath has improved overnight Continue steroids, nebulizer treatments, broad spectrum antibiotics. (2) Cavitary pneumonia Current Visit: Yes Status: Acute Assessment and Plan: Patient has had a cavitary lung lesion since October 2017 and was evaluated at [facility]. At that time bronchoscopy was done and path results were negative for malignancy and BAL culture grew sudarshan albicans. She was on clindamycin and Levaquin after discharge. Repeat CT during this admission shows decreasing size of cavitary lesion. Patient family reports patient had a negative TB test at the nursing facility we will try to obtain records. She does not meet SIRS criteria Discontinue Levaquin as her strep and Legionella urine antigens are negative. RIP negative Awaiting ID recommendations. (3) Diarrhea Current Visit: Yes Status: Suspected Assessment and Plan: Patient's C. difficile toxin screen was negative. Discontinue vancomycin by mouth. (4) DVT prophylaxis Current Visit: Yes Status: Acute Assessment and Plan: Heparin subcutaneous (5) Hypokalemia Current Visit: Yes Status: Acute Assessment and Plan: Patient still hypokalemic replacing. (6) Elevated troponin Current Visit: Yes Status: Acute (7) Drug-induced skin rash Current Visit: Yes Status: Acute Assessment and Plan: Patient has a rash on her trunk and her back that is macular papular likely secondary to clindamycin which is now discontinued. She does not have eosinophilia, leukocytosis on CBC. There is no areas of skin that are breaking down or pustular. We will continue monitor. - Time Spent with Patient Total time spent is greater than 50% in coordination of care (as documented) at patient's floor/unit and/or counseling patient: Internal Medicine: Result - Labs CBC & Chem 7: 12/10/18 00:37 12/10/18 00:37 Labs: Short CBC 12/09/18 12/10/18 Range/Units 13:50 00:37 WBC 10.3 7.6 (4.3-11.1) K/mcL Hgb 10.5 L 9.9 L (11.5-15.4) g/dL Hct 32.4 L 30.8 L (35.3-44.9) % Plt Count 303 297 (140-400) K/mcL Neutrophils # 8.1 7.2 (1.6-8.9) K/mcL BMP 12/09/18 12/10/18 13:50 00:37 Sodium 141 137 Potassium 3.0 L 3.3 L Chloride 95 L 96 L Carbon Dioxide 36 H 33 H BUN 9 7 L Creatinine 0.54 L 0.53 L Glucose 120 H 178 H Calcium 8.4 L 8.3 L Cardiac Enzymes 12/09/18 12/09/18 12/10/18 Range/Units 13:50 19:30 00:37 Troponin I 0.04 H* 0.03 0.03 (< 0.04) ng/mL - ABG Interpretation ABG results: ABG ABG pH 7.52 pH Units (7.32-7.45) H 12/09/18 15:40 ABG pCO2 48 mmHg (35-45) H 12/09/18 15:40 ABG pO2 144 mmHg (85-104) H 12/09/18 15:40 ABG O2 Saturation 99 % (95-98) H 12/09/18 15:40 - Impressions Impressions Chest X-Ray 12/09/18 13:52 IMPRESSION: Interval decrease in size of left pleural effusion. Otherwise persistent small bilateral pleural effusions with adjacent airspace opacities either atelectasis or pneumonia. D/ / Ayse Justin MD / Ayse Justin MD Interpreting Provider: Ayse Justin MD Chest CT 12/09/18 14:37 IMPRESSION: 1. Slight decrease in the right lower lobe cavitary mass with improving right lower lobe airspace disease. The differential diagnosis includes cavitary pneumonia, fungal infection, tuberculosis, infected bulla or less likely, malignancy. 2. Unchanged trace pericardial effusion. D/ / Aurelio Walsh MD / Aurelio Walsh MD Interpreting Provider: Aurelio Walsh MD Consult Discharge Plan - Plan Referrals: Aren Malik Jr, MD [Primary Care Provider] - <Marilee Thakkar - Last Filed: 12/10/18 17:13> Hospitalist Progress Note - Encounter Date of Encounter: 12/10/18 - Exam Vitals: Temp Pulse Resp BP Pulse Ox 98.3 F 131 28 129/77 95 12/10/18 15:51 12/10/18 15:51 12/10/18 15:51 12/10/18 15:51 12/10/18 15:51 - Time Spent with Patient Total time spent is greater than 50% in coordination of care (as documented) at patient's floor/unit and/or counseling patient: Internal Medicine: Result - Labs CBC & Chem 7: 12/10/18 14:54 12/10/18 00:37 Labs: Short CBC 12/10/18 12/10/18 Range/Units 00:37 14:54 WBC 7.6 13.5 H D (4.3-11.1) K/mcL Hgb 9.9 L 10.1 L (11.5-15.4) g/dL Hct 30.8 L 31.9 L (35.3-44.9) % Plt Count 297 342 (140-400) K/mcL Neutrophils # 7.2 (1.6-8.9) K/mcL BMP 12/10/18 00:37 Sodium 137 Potassium 3.3 L Chloride 96 L Carbon Dioxide 33 H BUN 7 L Creatinine 0.53 L Glucose 178 H Calcium 8.3 L Cardiac Enzymes 12/09/18 12/10/18 Range/Units 19:30 00:37 Troponin I 0.03 0.03 (< 0.04) ng/mL - ABG Interpretation ABG results: ABG ABG pH 7.52 pH Units (7.32-7.45) H 12/09/18 15:40 ABG pCO2 48 mmHg (35-45) H 12/09/18 15:40 ABG pO2 144 mmHg (85-104) H 12/09/18 15:40 ABG O2 Saturation 99 % (95-98) H 12/09/18 15:40 PT/INR, D-dimer PT 15.1 Seconds (9.4-12.1) H 12/10/18 14:54 - Impressions Impressions Chest CTA 12/10/18 14:00 IMPRESSION: 1. CT findings of partially occlusive pulmonary emboli in the segmental branches of the lingula as described in body of report. 2. No significant interval change from 12/09/2018 in a right lower lobe cavitary mass. Again diagnostic considerations would include cavitary pneumonia, fungal infection, TB, infected bulla or less likely malignancy. 3. Unchanged trace pericardial effusion. 4. Mild enlargement of the main pulmonary artery, correlate for signs or symptoms of pulmonary hypertension. Results were called by Dr. Shawn Whitley to Dr. Garcias on 12/10/2018 at 14:47. D/ / 12/10/2018 14:42:57 Shawn Whitley / suhas Interpreting Provider: Shawn Whitley - Attending Attestation I examined this patient and my medical decision-making was reviewed with the Resident Physician. I agree with the documented findings, disposition and treatment plan as described except to the extent set forth below. <Rashaad Powell - Last Filed: 12/10/18 10:05> (3) Diarrhea Qualifiers: Diarrhea type: infectious Qualified Code(s): A09 - Infectious gastroenteritis and colitis, unspecified
[2018-12-10] MEDS: Vancomycin Oral Soln 125 MG/2.5 ML UDC PO SCH (08:33)
[2018-12-10] MEDS: predniSONE 20 MG TABLET PO SCH (08:45)
[2018-12-10] MEDS: Ringers Solution, Lactated 1,000 ML IVC SCH (08:46)
[2018-12-10] MEDS ORDERED: levoFLOXacin 750 MG TABLET PO SCH (09:00)
[2018-12-10] MEDS ORDERED: Ondansetron 4 MG/2 ML VIAL IVP PRN (11:35)
--- NOTE | 2018-12-10 12:02 | Infectious Disease Consult ---
Infectious Disease-Consult - Encounter Date/Time Date of Encounter: 12/10/18 Time of Encounter: 11:35 - Data of Consult Patient: new to practice Reason for consult: Cavitary lung lesion Consult date: 12/10/18 Requesting Physician: Chung Michel Primary Care Provider: Aren Malik Jr, MD - HPI HPI: Patient is a 73-year-old who presented to [facility] on 12/09/2018 with shortness of breath and dyspnea. We are consulted on 12/10/2018 for cavitary lung lesion. Patient is a 73-year-old woman with extensive past medical history including COPD, hypertension who was recently admitted to [facility] on November 11 with shortness of breath. At that time patient had a CT chest with contrast which revealed interval development of thick-walled cavitary lesion within the right lower lobe measuring 3.86.4 cm. This contains a fluid level. Differential consideration included bronchogenic carcinoma or cavitary pneumonia or pulmonary abscess formation. Patient also was noted to have severe emphysematous changes. Pulmonary was consult and patient underwent bronchoscopy on 11/15/2018 which revealed copious mucopurulent thick secretion was found throughout the tracheal bronchial tree. Acute mucosal inflammation was visualized throughout the tracheal bronchial tree. Dynamic collapse was found throughout the tracheob ronchial tree. BAL revealed normal upper respiratory tract sylvie but otherwise cultures were negative. AFB stain was negative. Sputum culture was not obtained because it did not meet criteria by AASM guidelines. Urine legionella and pneumococcal antigen were negative. The rest infectious panel was also done and came back negative. I did not see that the patient had QuantiFERON done or fungal serologies on the previous admission. Patient was discharged on clindamycin 600 mg every 8 hours and levofloxacin 750 mg daily for 30 days (through december 20) On this admission patient apparently has been having shortness of breath. Patient reports for about a week prior to admission having worsening shortness of breath and coughing nausea and vomiting. Since admission, patient has been afebrile, tachycardic, tachypneic and hemodynamically stable requiring 6 L nasal cannula and saturating in the 90s. Presenting labs revealed a WBC of 10.3 with 79% neutrophils no bands. Patient's BUN was 9 creatinine was 0.54 lactic acid 1.8. C. difficile was tested and came back negative. A respiratory infectious panel was also obtained and it came back nondetectable. Blood cultures were obtained and patient had urine legionella and pneumococcal antigen both of which came back negative. CT chest revealed slightly decreased in the right lower lobe cavitary mass with improving right lower lobe airspace disease. Differential diagnosis includes cavitary pneumonia, fungal infection, tuberculosis, infected bulla or less likely malignancy. Patient was started on vancomycin and Zosyn we were asked to evaluate the patient and make further recommendations. On further questioning, patient born and raised in [facility]. She did live in [facility] for 12 years when she was younger. 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 Denies ever traveling outside of the [facility]. Patient had chickens when she was younger. No animals currently at home. She does admit to chills at times. She has had 30 lbs of unintentional weight loss. she also has night sweats intermittent. Patient has not had any tooth abscess or dental work. She was a smoker of 40 years 1 pack / day. quiet 8 years ago. - ROS Review of Systems: 10 point ROS done, negative other for what's mentioned in the HPI + cough, SOB, sputum production but no hemoptysis - Results CBC & Chem 7: 12/10/18 14:54 12/10/18 00:37 - Exam Vitals: Temp Pulse Resp BP Pulse Ox 98.2 F 133 28 127/78 98 12/10/18 11:22 12/10/18 11:22 12/10/18 11:22 12/10/18 11:22 12/10/18 11:22 Exam: GENERAL: appears comfortable laying in bed NAD HEAD: normocephalic atraumatic EYES: EL EOMI no conjunctival hemorrhage. Non icteric ENT: MMM no oral lesions NECK: supple no meningeal signs LUNGS: coarse breath sounds bilaterally. some fine wheezing and ronchi both lung hernandez CV: RRR S1S2 ABDOMEN: soft NT ND, + BS EXT: adequate perfusion no edema BACK: no CVA tenderness no spinal tenderness SKIN: intact; maculopapular rash on the trunk sparing the face and the extremities PSCYH: calm appropriate RX: Citalopram [CeleXA] 20 mg PO DAILY 02/05/16 [History] RX: Loratadine [Claritin] 10 mg PO DAILY 02/05/16 [History] RX: Lovastatin [Mevacor] 40 mg PO HS 02/05/16 [History] RX: Metoprolol [Lopressor] 25 mg PO BID 02/05/16 [History] RX: Nitroglycerin [Nitrostat] 0.4 mg SL Q5M PRN 02/05/16 [History] RX: Albuterol Sulfate [Albuterol Inhaler] 2 puff IH Q4HR PRN #2 hfa.aer.ad 02/08/16 [Rx] RX: Roflumilast [Daliresp] 500 mcg PO DAILY 11/11/18 [History] RX: Aspirin [Lo-Dose Aspirin EC] 81 mg PO DAILY 11/12/18 [History] RX: Budesonide/Formoterol 160/4.5 [Symbicort 160/4.5] 2 puff IH BIDR 11/12/18 [History] RX: L. Acidophilus/Pectin, [place] [Acidophilus Probiotic Capsule] 1 cap PO DAILY 11/12/18 [History] RX: Multivitamin [One Daily] 1 tab PO DAILY 11/12/18 [History] RX: Umeclidinium [place] [Incruse Ellipta] 2 puff IH DAILY 11/12/18 [History] RX: raNITIdine HCl [Zantac] 150 mg PO BID 11/12/18 [History] RX: GuaiFENesin ER [Mucinex] 600 mg PO BID PRN 30 Days #60 tbbp.12hr 11/19/18 [Rx] RX: Menthol [Cough Drops] 9.1 mg PO Q2H PRN #0 lozenge 11/19/18 [Rx] Ipratropium/Albuterol Neb [Duoneb] 3 ml IH Q4HR PRN 12/09/18 [History] RX: Melatonin 6 mg PO HS 12/09/18 [History] Allergy/AdvReac Type Severity Reaction Status Date / Time clarithromycin [From Biaxin] Allergy Gastrointestinal Verified 07/01/18 12:50 Upset codeine AdvReac See Verified 07/01/18 12:50 Comments lansoprazole [From Prevacid] AdvReac ulcer Verified 07/01/18 12:50 lisinopril AdvReac Cough Verified 07/01/18 12:50 meloxicam [From Mobic] AdvReac ulcer Verified 07/01/18 12:50 opium (anthroposophic) AdvReac nausea/vomi Verified 07/01/18 12:50 [Opium (Anthroposophic)] ting - Assessment and Plan (1) Sepsis Current Visit: No Status: Acute had 2 SIRS criteria on admission likely secondary to pulmonary infection (pulmonary cavitary lesion vs bronchitis ) Qualifiers: Sepsis type: sepsis due to unspecified organism Qualified Code(s): A41.9 - Sepsis, unspecified organism SNOMED Code(s): 82797585 (2) Cavitary lesion of lung Current Visit: No Status: Acute etiology not clear first seen on CT 11/11: 4x6 cm with air fluid level; s/p bronch which was non revealing; AFB negative had PPD at [place] which was negative (per patient) received 3 weeks of levofloxacin/clindamycin Repeat CT this admission: reveals similar cavitary lung lesions with same dim entions RIP negative; urine legionella and S. Pneumo negative At this point infectious etiology is highest on my diff including bacterial , NTM, fungal etc malignancy still on my diff as well d/w Dr. Russell check MRSA screen check fungal serology repeat PPD low index of suspicion for TB since negative ppd at [place] and AFB negative on previous bronch no concern for HIV agree with vanc/zosyn for now d/c levofloxacin (concern for rash from drug allergy to levofloxacin) SNOMED Code(s): 369800515 (3) COPD (chronic obstructive pulmonary disease) Current Visit: Yes Status: Acute Qualifiers: COPD type: unspecified COPD Qualified Code(s): J44.9 - Chronic obstructive pulmonary disease, unspecified SNOMED Code(s): 12170774 (4) Diarrhea Current Visit: Yes Status: Suspected C diff checked and negative aide due to abx use Qualifiers: Diarrhea type: infectious Qualified Code(s): A09 - Infectious gastroenteritis and colitis, unspecified SNOMED Code(s): 77415768 (5) Rash Current Visit: Yes Status: Acute maculopapular rash on trunk sparing the face and the extremities mildly pruritic started the Thursday prior to admission not likely due to any antibiotics we gave her here maybe due to levofloxacin? SNOMED Code(s): 214622804 Past Med Surg Social Fam HX - Past Medical History Medical history: COPD, hypertension Additional medical history: mitral valve prolapse Psychiatric history: anxiety - Past Surgical History Surgical History: angioplasty/stent, breast surgery, cholecystectomy, hysterectomy, orthopedic, other, other Additional surgical history: left breast. back surgery. EGD. 2 heart stents. - Social History Smoking Status: Former smoker Smokeless Tobacco Status: No Alcohol use: none Drug use: none - Family History Brother Living Status: Hx Family Cardiac Disorders: Yes Father Living Status: Hx Family Cardiac Disorders: Yes ("valve problems") Mother Living Status: Hx Family Cardiac Disorders: Yes ("artery disease", CHF) Hx Family GI Disorders: Yes (ulcers) Hx Family Endocrine Disorder: Yes Consult Discharge Plan - Plan Referrals: Aren Malik Jr, MD [Primary Care Provider] -
[2018-12-10] MEDS ORDERED: Isovue-370 500 ML BOTTLE IVP ONE (12:51)
[2018-12-10] MEDS ORDERED: *HR* Heparin 5,000 UNIT/ML VIAL IVP PRN ×2 (14:44)
[2018-12-10] MEDS ORDERED: *HR* Heparin 5,000 UNIT/ML VIAL IVP ONE (14:44)
[2018-12-10 15:17] LABS: Hematocrit 31.9 % (35.3-44.9); Hemoglobin 10.1 g/dL (11.5-15.4); Mean Corpuscular HGB Conc 31.7 g/dL (31.6-35.5); Mean Corpuscular Hemoglobin 29.4 pg (28.0-33.3); Mean Platelet Volume 10.2 fL (9.4-12.4); Platelet Count 342 K/mcL (140-400); Red Blood Count 3.43 M/mcL (3.82-4.97); Red Cell Distribution Width 14.2 % (11.5-14.5)
[2018-12-10 15:31] LABS: Heparin anti-factor XA UFH 0.05 IU/mL (0.30-0.70); INR 1.3; Prothrombin Time 15.1 Seconds (9.4-12.1)
--- NOTE | 2018-12-10 15:54 | Pulmonology Consult Note ---
Date of Encounter: 12/10/18 Time of Encounter: 12:45 Assessment and Plan (1) Cavitary lesion of lung Current Visit: Yes Status: Chronic Reviewed CT chest result with ID team and differential diagnosis remain infection since the lesion had not gotten worse. Less likely will be malignancy and for that reason I explained to her we can repeat bronchoscopy or CT guided biopsy. Patient prefer to wait and give a chance for current antibiotics per ID team. She understand malignancy can't be ruled out at this time. I have explained this in the presence of the family at the bedside. Patient will need an outpatient follow up CT in about 8 weeks and the she can be seen in the office. I have answered all the family's questions. (2) COPD (chronic obstructive pulmonary disease) Current Visit: Yes Status: Chronic Continue bronchodilators and keep SPO2 above 88% Qualifiers: COPD type: unspecified COPD Qualified Code(s): J44.9 - Chronic obstructive pulmonary disease, unspecified History of Present Illness Consult date: 12/10/18 Requesting physician: Neeta Flaherty Reason for consult: pneumonia Chief complaint: Shortness of Breath and pneumonia History of present illness: This is a very pleasant 73 year old female with recent hospitalization presented to the hospital with weight loss, nausea and vomiting and skin rash. She had bronchoscopy on her last admission, but unfortunately it was negative for any significant infections and she had repeat CT chest, with perhaps slight impro vement in the cavity lesion. She was treated with antibiotics for long time and she feels somewhat better and she is breathing better. She denies any hemoptysis and no fever or chills and she denies any significant productive cough. She is on home O2 and she use bronchodilators. She has some itching in the area of rash. Past Med Surg Social Fam HX - Past Medical History Medical history: COPD, hypertension Additional medical history: mitral valve prolapse Psychiatric history: anxiety - Past Surgical History Surgical History: angioplasty/stent, breast surgery, cholecystectomy, hysterectomy, orthopedic, other, other Additional surgical history: left breast. back surgery. EGD. 2 heart stents. - Social History Smoking Status: Former smoker Smokeless Tobacco Status: No Alcohol use: none Drug use: none - Family History Brother Living Status: Hx Family Cardiac Disorders: Yes Father Living Status: Hx Family Cardiac Disorders: Yes ("valve problems") Mother Living Status: Hx Family Cardiac Disorders: Yes ("artery disease", CHF) Hx Family GI Disorders: Yes (ulcers) Hx Family Endocrine Disorder: Yes Medications and Allergies RX: Citalopram [CeleXA] 20 mg PO DAILY 02/05/16 [History] RX: Loratadine [Claritin] 10 mg PO DAILY 02/05/16 [History] RX: Lovastatin [Mevacor] 40 mg PO HS 02/05/16 [History] RX: Metoprolol [Lopressor] 25 mg PO BID 02/05/16 [History] RX: Nitroglycerin [Nitrostat] 0.4 mg SL Q5M PRN 02/05/16 [History] RX: Albuterol Sulfate [Albuterol Inhaler] 2 puff IH Q4HR PRN #2 hfa.aer.ad 02/08/16 [Rx] RX: Roflumilast [Daliresp] 500 mcg PO DAILY 11/11/18 [History] RX: Aspirin [Lo-Dose Aspirin EC] 81 mg PO DAILY 11/12/18 [History] RX: Budesonide/Formoterol 160/4.5 [Symbicort 160/4.5] 2 puff IH BIDR 11/12/18 [History] RX: L. Acidophilus/Pectin, [place] [Acidophilus Probiotic Capsule] 1 cap PO DAILY 11/12/18 [History] RX: Multivitamin [One Daily] 1 tab PO DAILY 11/12/18 [History] RX: Umeclidinium [place] [Incruse Ellipta] 2 puff IH DAILY 11/12/18 [History] RX: raNITIdine HCl [Zantac] 150 mg PO BID 11/12/18 [History] RX: GuaiFENesin ER [Mucinex] 600 mg PO BID PRN 30 Days #60 tbbp.12hr 11/19/18 [Rx] RX: Menthol [Cough Drops] 9.1 mg PO Q2H PRN #0 lozenge 11/19/18 [Rx] Ipratropium/Albuterol Neb [Duoneb] 3 ml IH Q4HR PRN 12/09/18 [History] RX: Melatonin 6 mg PO HS 12/09/18 [History] Allergy/AdvReac Type Severity Reaction Status Date / Time clarithromycin [From Biaxin] Allergy Gastrointestinal Verified 07/01/18 12:50 Upset codeine AdvReac See Verified 07/01/18 12:50 Comments lansoprazole [From Prevacid] AdvReac ulcer Verified 07/01/18 12:50 lisinopril AdvReac Cough Verified 07/01/18 12:50 meloxicam [From Mobic] AdvReac ulcer Verified 07/01/18 12:50 opium (anthroposophic) AdvReac nausea/vomi Verified 07/01/18 12:50 [Opium (Anthroposophic)] ting All Systems: The remainder of the systems were reviewed and are negative Physical Examination Vital Signs: Vital Signs, Last 4 Hours Resp Pulse Ox 12/10/18 15:26 18 96 General appearance: no acute distress Eyes: nonicteric ENT: oropharynx moist Neck: supple, no lymphadenopathy Effort: normal Inspection: hyperextended Auscultation: right: rhonchi, bilateral: diminished breath sounds Percussion: bilateral: not dull Cardiovascular: regular rate and rhythm Gastrointestinal: normoactive bowel sounds, non-distended Integumentary: rash (Torso area) Extremities: no cyanosis, edema normal mental status, non-focal exam mood appropriate Results - Laboratory Findings CBC and BMP: 12/10/18 14:54 12/10/18 00:37 ABG ABG pH 7.52 pH Units (7.32-7.45) H 12/09/18 15:40 ABG pCO2 48 mmHg (35-45) H 12/09/18 15:40 ABG pO2 144 mmHg (85-104) H 12/09/18 15:40 ABG O2 Saturation 99 % (95-98) H 12/09/18 15:40 PT/INR, D-dimer PT 15.1 Seconds (9.4-12.1) H 12/10/18 14:54 Abnormal lab findings: Abnormal lab results WBC 13.5 K/mcL (4.3-11.1) H D 12/10/18 14:54 RBC 3.43 M/mcL (3.82-4.97) L 12/10/18 14:54 Hgb 10.1 g/dL (11.5-15.4) L 12/10/18 14:54 Hct 31.9 % (35.3-44.9) L 12/10/18 14:54 Lymphocytes # 0.3 K/mcL (0.6-4.6) L 12/10/18 00:37 PT 15.1 Seconds (9.4-12.1) H 12/10/18 14:54 Heparin Anti-Xa, Unfract 0.05 IU/mL (0.30-0.70) L 12/10/18 14:54 ABG pH 7.52 pH Units (7.32-7.45) H 12/09/18 15:40 ABG pCO2 48 mmHg (35-45) H 12/09/18 15:40 ABG pO2 144 mmHg (85-104) H 12/09/18 15:40 ABG HCO3 39 mEq/L (21-27) H 12/09/18 15:40 ABG Total CO2 40 mEq/L (20-26) H 12/09/18 15:40 ABG O2 Saturation 99 % (95-98) H 12/09/18 15:40 ABG Base Excess 14 mEq/L (-2 to 3) H 12/09/18 15:40 Potassium 3.3 mEq/L (3.5-5.1) L 12/10/18 00:37 Chloride 96 mEq/L (98-107) L 12/10/18 00:37 Carbon Dioxide 33 mEq/L (23-29) H 12/10/18 00:37 BUN 7 mg/dL (8-23) L 12/10/18 00:37 Creatinine 0.53 mg/dL (0.60-1.20) L 12/10/18 00:37 Glucose 178 mg/dL (70-105) H 12/10/18 00:37 Calcium 8.3 mg/dL (8.6-10.3) L 12/10/18 00:37 B-Natriuretic Peptide 292 pg/mL (Less than 100) H 12/09/18 13:50 - Microbiology Findings Microbiology Findings: Microbiology, Last 48 Hours 12/09/18 18:50 Legionella Antigen - Final Urine,Random-Not Preferred Streptococcus pneumoniae Antigen (M - Final 12/09/18 14:17 Blood Culture - Preliminary Peripheral Venipuncture Culture is incubating and being continuously monitored for growth. Final report to follow. 12/09/18 13:50 Blood Culture - Preliminary Peripheral Venipuncture Culture is incubating and being continuously monitored for growth. Final report to follow. - Diagnostic Findings CT scan - chest: report reviewed, image reviewed - Clinical Findings Intake & Output: Intake & Output 12/09/18 12/10/18 12/10/18 23:59 07:59 15:59 Intake Total 100 / 100 1220 / 1220 Output Total 100 / 100 200 / 200 200 / 200 Balance -100 / -100 -100 / -100 1020 / 1020 Weight 66.678 kg Consult Discharge Plan - Plan Referrals: Aren Malik Jr, MD [Primary Care Provider] -
[2018-12-10] MEDS: Heparin 25,000 UNIT/250 ML D5W 25,000 UNIT/250 ML IV.SOLN IVC SCH (16:33)
[2018-12-10] MEDS ORDERED: diazePAM 2 MG TABLET PO ONE (22:37)
[2018-12-11 01:11] LABS: Hematocrit 28.3 % (35.3-44.9); Immature Granulocytes % 0.7 % (0-4); Lymphocytes # 0.8 K/mcL (0.6-4.6); Lymphocytes % 6.8 %; Mean Corpuscular HGB Conc 31.8 g/dL (31.6-35.5); Mean Corpuscular Hemoglobin 29.2 pg (28.0-33.3); Mean Corpuscular Volume 91.9 fL (83.0-100.0); Mean Platelet Volume 10.4 fL (9.4-12.4); Monocytes # 1.1 K/mcL (0.0-1.3); Monocytes % 9.4 %; Neutrophils # 9.5 K/mcL (1.6-8.9); Platelet Count 336 K/mcL (140-400); Red Blood Count 3.08 M/mcL (3.82-4.97); Red Cell Distribution Width 14.4 % (11.5-14.5); Segmented Neutrophils % 83.1 %
[2018-12-11 01:26] LABS: BUN/Creatinine Ratio 21 (6-26); Blood Urea Nitrogen 12 mg/dL (8-23); Calcium 8.9 mg/dL (8.6-10.3); Carbon Dioxide 36 mEq/L (23-29); Chloride 98 mEq/L (98-107); Glucose 147 mg/dL (70-105); Osmolality,Calculated 292 (280-300); Potassium 3.4 mEq/L (3.5-5.1); Sodium 140 mEq/L (136-145); eGFR For Non-African Americans > 60 (> 60)
[2018-12-11] MEDS: Ipratropium/Albuterol Neb 3 ML IH SCH ×4 (04:21→21:19)
[2018-12-11] MEDS ORDERED: Nitroglycerin 0.4 MG TAB.SUBL SL PRN (07:36)
[2018-12-11] MEDS ORDERED: Menthol 9.1 MG LOZENGE PO PRN (07:36)
[2018-12-11] MEDS ORDERED: *HR* Metoprolol 5 MG/5 ML VIAL IVP ONE (07:38)
[2018-12-11] MEDS: Multivit/Ca/Min/Fe/FA 1 TAB TABLET PO SCH (09:34)
[2018-12-11] MEDS: Aspirin Enteric Coated 81 MG Tablet PO SCH (09:34)
[2018-12-11] MEDS: predniSONE 20 MG TABLET PO SCH (09:34)
[2018-12-11] MEDS: Loratadine 10 MG TABLET PO SCH (09:34)
[2018-12-11] MEDS: Piperacillin/Tazobactam 3.375 GM in 0.9 % Sodium Chloride Mini Bag 100 ML IVPB SCH ×3 (09:35→23:16)
[2018-12-11] MEDS: Lactobacillus 1 EACH CAP.SPRINK PO SCH (09:48)
[2018-12-11] MEDS: Famotidine 20 MG TABLET PO SCH ×2 (09:48→21:10)
[2018-12-11] MEDS: Roflumilast [Daliresp] 500 MCG PO SCH (09:48)
[2018-12-11] MEDS: Budesonide/Formoterol 160/4.5 1 PUFF INH IH SCH ×2 (10:26→21:19)
--- NOTE | 2018-12-11 10:51 | Internal Med Progress Note ---
<Kun Garcias - Last Filed: 12/11/18 13:00> Hospitalist Progress Note - Encounter Date of Encounter: 12/11/18 Time of Encounter: 10:50 (]oiiww) - Subjective Interval History: Patient seen and examined at bedside; she reports that her respiratory status has remained largely unchanged from yesterday. She experienced a mild cough e arlier, but this has since resolved. Also complained of one episode of diarrhea this morning; she is requesting medication for this. Currently denies having any skin increased sputum production, cough, or abdominal pain. No further complaints. - Exam Vitals: Temp Pulse Resp BP Pulse Ox 98.2 F 117 16 144/87 96 12/11/18 07:30 12/11/18 07:30 12/11/18 10:26 12/11/18 07:30 12/11/18 10:26 Exam: General: Conversant, no acute distress Head: Head atraumatic, normocephalic Heart: Regular rate and rhythm, S1, S2, no murmurs, rubs, or gallops Lungs: Mild expiratory wheezes in the lower lung hernandez, mild crackles, prolonged expiratory phase Abdomen: Soft, nontender Extremities: No edema, clubbing, or cyanosis Neuro: No focal deficits Skin: Dry, intact - Assessment and Plan (1) Acute exacerbation of chronic obstructive airways disease Current Visit: Yes Status: Acute Assessment and Plan: - Patient reports that she still has mild intermittent shortness of breath - Denies having cough or increased sputum production at this time - Currently on 5 L of oxygen Plan: - Continue oxygen therapy - DuoNebs every 6 hours - Prednisone 40 mg by mouth daily - Continue supplemental O2; maintain SPO2 greater than 92% (2) Cavitary pneumonia Current Visit: Yes Status: Acute Assessment and Plan: - Patient has cavitary lung lesion since October 2017 - Bronchoscopy was performed at this time; biopsy was negative for malignancy; BAL culture grew Adrienne albicans - Was discharged on clindamycin and Levaquin - Repeat CT scan during this admission demonstrates a decreasing size of the cavitary lesion - Patient is currently on vancomycin and Zosyn Plan: - Per ID recommendations, repeating PPD and fungal serology - Pulmonology recommends CT scan in 8 weeks in the outpatient setting - Continue supplemental O2; maintain SPO2 greater than 92% (3) Diarrhea Current Visit: Yes Status: Acute Assessment and Plan: - Patient reports one episode of diarrhea this morning - C. difficile toxin on 12/09 was negative - Will order Imodium (4) Hypokalemia Current Visit: Yes Status: Acute Assessment and Plan: - Potassium this morning was 3.4 - replace potassium (5) Pulmonary embolism Current Visit: Yes Status: Acute Assessment and Plan: - CT chest on 12/09 demonstrated - Partially occlusive pulmonary emboli in the segmental branches of lingula - Patient started on heparin drip Plan: - Continue heparin drip and supplemental O2 - Time Spent with Patient Total time spent is greater than 50% in coordination of care (as documented) at patient's floor/unit and/or counseling patient: 25 - 35 minutes Internal Medicine: Result - Labs CBC & Chem 7: 12/11/18 00:50 12/11/18 00:50 Labs: Short CBC 12/10/18 12/11/18 Range/Units 14:54 00:50 WBC 13.5 H D 11.4 H (4.3-11.1) K/mcL Hgb 10.1 L 9.0 L (11.5-15.4) g/dL Hct 31.9 L 28.3 L (35.3-44.9) % Plt Count 342 336 (140-400) K/mcL Neutrophils # 9.5 H (1.6-8.9) K/mcL BMP 12/11/18 00:50 Sodium 140 Potassium 3.4 L Chloride 98 Carbon Dioxide 36 H BUN 12 Creatinine 0.57 L Glucose 147 H Calcium 8.9 - ABG Interpretation ABG results: ABG ABG pH 7.52 pH Units (7.32-7.45) H 12/09/18 15:40 ABG pCO2 48 mmHg (35-45) H 12/09/18 15:40 ABG pO2 144 mmHg (85-104) H 12/09/18 15:40 ABG O2 Saturation 99 % (95-98) H 12/09/18 15:40 PT/INR, D-dimer PT 15.1 Seconds (9.4-12.1) H 12/10/18 14:54 - Impressions Impressions Chest CTA 12/10/18 14:00 IMPRESSION: 1. CT findings of partially occlusive pulmonary emboli in the segmental branches of the lingula as described in body of report. 2. No significant interval change from 12/09/2018 in a right lower lobe cavitary mass. Again diagnostic considerations would include cavitary pneumonia, fungal infection, TB, infected bulla or less likely malignancy. 3. Unchanged trace pericardial effusion. 4. Mild enlargement of the main pulmonary artery, correlate for signs or symptoms of pulmonary hypertension. Results were called by Dr. Shawn Whitley to Dr. Garcias on 12/10/2018 at 14:47. D/ / 12/10/2018 14:42:57 Shawn Whitley / suhas Interpreting Provider: Shawn Whitley Consult Discharge Plan - Plan Referrals: Aren Malik Jr, MD [Primary Care Provider] - <Marilee Thakkar - Last Filed: 12/11/18 14:35> Hospitalist Progress Note - Encounter Date of Encounter: 12/11/18 - Exam Vitals: Temp Pulse Resp BP Pulse Ox 98.0 F 108 18 129/77 95 12/11/18 11:23 12/11/18 11:23 12/11/18 11:23 12/11/18 11:23 12/11/18 11:23 - Assessment and Plan (1) Acute exacerbation of chronic obstructive airways disease Current Visit: Yes Status: Acute (2) Cavitary pneumonia Current Visit: Yes Status: Acute (3) Diarrhea Current Visit: Yes Status: Acute (4) Hypokalemia Current Visit: Yes Status: Acute (5) Pulmonary embolism Current Visit: Yes Status: Acute - Time Spent with Patient Total time spent is greater than 50% in coordination of care (as documented) at patient's floor/unit and/or counseling patient: Internal Medicine: Result - Labs CBC & Chem 7: 12/11/18 00:50 12/11/18 00:50 Labs: Short CBC 12/10/18 12/11/18 Range/Units 14:54 00:50 WBC 13.5 H D 11.4 H (4.3-11.1) K/mcL Hgb 10.1 L 9.0 L (11.5-15.4) g/dL Hct 31.9 L 28.3 L (35.3-44.9) % Plt Count 342 336 (140-400) K/mcL Neutrophils # 9.5 H (1.6-8.9) K/mcL BMP 12/11/18 00:50 Sodium 140 Potassium 3.4 L Chloride 98 Carbon Dioxide 36 H BUN 12 Creatinine 0.57 L Glucose 147 H Calcium 8.9 Urine 12/11/18 Range/Units 12:40 Urine Color Yellow (Yellow) Urine Clarity Clear (Clear) Urine pH 8.5 H (5.0-8.0) pH Units Ur Specific [place] 1.011 (1.010-1.025) Urine Protein Negative (Neg-Trace) mg/dL Urine Glucose (UA) Normal (Normal) mg/dL - ABG Interpretation ABG results: ABG ABG pH 7.52 pH Units (7.32-7.45) H 12/09/18 15:40 ABG pCO2 48 mmHg (35-45) H 12/09/18 15:40 ABG pO2 144 mmHg (85-104) H 12/09/18 15:40 ABG O2 Saturation 99 % (95-98) H 12/09/18 15:40 PT/INR, D-dimer PT 15.1 Seconds (9.4-12.1) H 12/10/18 14:54 - Impressions Impressions Chest CTA 12/10/18 14:00 IMPRESSION: 1. CT findings of partially occlusive pulmonary emboli in the segmental branches of the lingula as described in body of report. 2. No significant interval change from 12/09/2018 in a right lower lobe cavitary mass. Again diagnostic considerations would include cavitary pneumonia, fungal infection, TB, infected bulla or less likely malignancy. 3. Unchanged trace pericardial effusion. 4. Mild enlargement of the main pulmonary artery, correlate for signs or symptoms of pulmonary hypertension. Results were called by Dr. Shawn Whitley to Dr. Garcias on 12/10/2018 at 14:47. D/ / 12/10/2018 14:42:57 Shawn Whitley / suhas Interpreting Provider: Shawn Whitley Echocardiogram 12/10/18 15:44 Impressions: LVEF 55%. Mild concentric left ventricular hypertrophy. Indeterminate diastolic function. Moderately dilated right ventricle with mild right ventricular hypokinesis. Mildly dilated right atrium. Mild tricuspid regurgitation. No pulmonary hypertension. Left Ventricular Wall Motion: Rest Echo Findings All wall segments showed normal motion. Findings: Study Quality * Technically adequate exam. ECG Findings * Sinus tachycardia. Left Ventricle * LVEF 55%. * Normal LV chamber size, wall thickness and systolic function. * Mild concentric left ventricular hypertrophy. * Indeterminate diastolic function. Right Ventricle * Moderately dilated right ventricle with grossly normal * Mild right ventricular hypokinesis. Left Atrium * Normal left atrial size. Right Atrium * Mildly dilated right atrium. Interatrial Septum * Interatrial septum not well evaluated. * No evidence of PFO by color Doppler. Aortic Valve * Trileaflet aortic valve. * No aortic stenosis. * No aortic regurgitation. Mitral Valve * Mild mitral annular calcification * Trace mitral regurgitation. * No mitral stenosis. Tricuspid Valve * Normal tricuspid valve structure. * No tricuspid stenosis. * Mild tricuspid regurgitation. * Estimated RVSP is 13 mmHg. * Estimated RA pressure is 8 mmHg. * No pulmonary hypertension. Pulmonic Valve * Pulmonic valve is not well visualized. * No pulmonic stenosis. * No pulmonic regurgitation. Aorta * Normally sized aortic root. Pericardium * There is a trivial to small pericardial effusion present. * There is no echocardiographic evidence of tamponade. IVC * The IVC is dilated. * > 50% respiratory change - Attending Attestation I examined this patient and my medical decision-making was reviewed with the Resident Physician. I agree with the documented findings, disposition and treatment plan as described except to the extent set forth below.
[2018-12-11] MEDS: UMECLIDINIUM BROMIDE IH SCH (11:07)
[2018-12-11 13:02] LABS: Bilirubin,Urine Negative (Negative); Blood,Urine Negative (Negative); Clarity,Urine Clear (Clear); Color,Urine Yellow (Yellow); Glucose,Urine (UA) Normal (Normal); Ketones,Urine Negative (Negative); Leukocyte Esterase,Urine Negative (Negative); Nitrite,Urine Negative (Negative); PH,Urine 8.5 pH Units (5.0-8.0); Protein,Urine Negative (Neg-Trace); Specific Gravity,Urine 1.011 (1.010-1.025); Urobilinogen,Urine Normal (Normal)
[2018-12-11] MEDS: Heparin 25,000 UNIT/250 ML D5W 25,000 UNIT/250 ML IV.SOLN IVC SCH (13:48)
--- NOTE | 2018-12-11 16:04 | Electrocardiograph Report ---
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
[2018-12-11] MEDS: *HR* Metoprolol 5 MG/5 ML VIAL IVP PRN ×2 (16:46→21:04)
[2018-12-11] MEDS: Melatonin 3 MG TABLET PO SCH (21:09)
[2018-12-12] MEDS: Ipratropium/Albuterol Neb 3 ML IH SCH ×4 (04:05→22:00)
[2018-12-12 04:26] LABS: Basophils % 0.1 %; Hematocrit 27.9 % (35.3-44.9); Hemoglobin 8.5 g/dL (11.5-15.4); Immature Granulocytes % 1.5 % (0-4); Lymphocytes # 1.2 K/mcL (0.6-4.6); Lymphocytes % 14.7 %; Mean Corpuscular HGB Conc 30.5 g/dL (31.6-35.5); Mean Corpuscular Hemoglobin 29.1 pg (28.0-33.3); Mean Corpuscular Volume 95.5 fL (83.0-100.0); Mean Platelet Volume 10.4 fL (9.4-12.4); Monocytes # 0.9 K/mcL (0.0-1.3); Monocytes % 10.7 %; Neutrophils # 5.8 K/mcL (1.6-8.9); Platelet Count 366 K/mcL (140-400); Red Blood Count 2.92 M/mcL (3.82-4.97); Red Cell Distribution Width 14.5 % (11.5-14.5)
[2018-12-12 04:27] LABS: BUN/Creatinine Ratio 29 (6-26); Blood Urea Nitrogen 17 mg/dL (8-23); Calcium 8.8 mg/dL (8.6-10.3); Carbon Dioxide 32 mEq/L (23-29); Chloride 101 mEq/L (98-107); Glucose 160 mg/dL (70-105); Osmolality,Calculated 289 (280-300); Potassium 3.8 mEq/L (3.5-5.1); Sodium 137 mEq/L (136-145); eGFR For Non-African Americans > 60 (> 60)
[2018-12-12] MEDS: Roflumilast [Daliresp] 500 MCG PO SCH (07:42)
[2018-12-12] MEDS: Loratadine 10 MG TABLET PO SCH (07:52)
[2018-12-12] MEDS: Famotidine 20 MG TABLET PO SCH ×2 (07:52→20:16)
[2018-12-12] MEDS: Multivit/Ca/Min/Fe/FA 1 TAB TABLET PO SCH (07:52)
[2018-12-12] MEDS: Lactobacillus 1 EACH CAP.SPRINK PO SCH (07:52)
[2018-12-12] MEDS: Aspirin Enteric Coated 81 MG Tablet PO SCH (07:53)
[2018-12-12] MEDS: predniSONE 20 MG TABLET PO SCH (07:53)
[2018-12-12] MEDS: Piperacillin/Tazobactam 3.375 GM in 0.9 % Sodium Chloride Mini Bag 100 ML IVPB SCH ×3 (07:54→23:57)
[2018-12-12] MEDS: Budesonide/Formoterol 160/4.5 1 PUFF INH IH SCH ×2 (09:48→22:01)
--- NOTE | 2018-12-12 10:31 | Internal Med Progress Note ---
<Kun Garcias - Last Filed: 12/12/18 14:29> Hospitalist Progress Note - Encounter Date of Encounter: 12/12/18 Time of Encounter: 10:29 - Subjective Interval History: Patient reports that her respiratory status remains largely unchanged. Denies having any cough, shortness of breath, or increased sputum production. She has had 2 episodes of hemoptysis this morning. She states that she coughed up a small amount of blood both yesterday afternoon and this morning. States that this has not happened before. Pulmonology has been consulted; recommended discontinuing the heparin drip, as the location of the PE makes it unlikely that a heparin drip would be helpful. We will keep the patient NPO at midnight for possible bronchoscopy. Bronchoscopy will be performed if patient continues to have hemoptysis. Sputum receptacle be kept at bedside to quantify amount of hemoptysis. We will also begin lowering her oxygen to see how she tolerates. Currently on 5 L satting approximately 97%. - Exam Vitals: Temp Pulse Resp BP Pulse Ox 97.8 F 82 18 124/66 97 12/12/18 06:45 12/12/18 06:45 12/12/18 06:45 12/12/18 06:45 12/12/18 06:45 Exam: General: Conversant, no acute distress Head: Head atraumatic, normocephalic Heart: Regular rate and rhythm, S1, S2, no murmurs, rubs, or gallops Lungs: Mild expiratory wheezes in the lower lung hernandez, mild crackles, prolonged expiratory phase Abdomen: Soft, nontender Extremities: No edema, clubbing, or cyanosis Neuro: No focal deficits Skin: Dry, intact - Assessment and Plan (1) Acute exacerbation of chronic obstructive airways disease Current Visit: Yes Status: Acute Assessment and Plan: - Initially presented with shortness of breath with increased oxygen requirement - Denies having shortness of breath or increased sputum production at this time - Currently on 5 L of oxygen; normally wears 2L of oxygen at home Plan: - DuoNebs every 6 hours - Prednisone 40 mg by mouth daily - Continue supplemental O2; maintain SPO2 greater than 92% - Will begin decreasing patient's oxygen and determine how she tolerates it (2) Cavitary pneumonia Current Visit: Yes Status: Acute Assessment and Plan: - Patient has cavitary lung lesion since October 2017 - Bronchoscopy was performed at this time; biopsy was negative for malignancy; BAL culture grew Adrienne albicans; was discharged on clindamycin and Levaquin - Repeat CT scan during this admission demonstrates a decreasing size of the cavitary lesion - Currently on vancomycin and Zosyn - As noted above, patient developed multiple episodes of hemoptysis yesterday and this morning Plan: - Pulmonology has been consulted for hemoptysis; NPO at midnight for possible bronch - Pulmonology will also provide antibiotic recommendations for discharge - CT scan in 8 weeks in the outpatient setting - Continue supplemental O2; maintain SPO2 greater than 92% (3) Pulmonary embolism Current Visit: Yes Status: Acute Assessment and Plan: - CT chest on 12/09 demonstrated - Partially occlusive pulmonary emboli in the segmental branches of lingula - Patient was started on heparin drip Plan: - Spoke with pulmonology; will discontinue heparin drip due to PE location and negative lower extremity Dopplers (4) Diarrhea Current Visit: Yes Status: Acute Assessment and Plan: - Patient reports one episode of diarrhea this morning - C. difficile toxin on 12/09 was negative - Will order Imodium (5) Hemoptysis Current Visit: Yes Status: Acute Assessment and Plan: - Patient reports multiple episodes of hemoptysis since yesterday; initially, sputum was red, but now is more faint and pink - Hemoglobin this morning was slightly decreased from yesterday from 9.0-8.5 - Repeat hemoglobin this morning was 9.8; hemoglobin is currently stable - Patient is still on heparin drip for pulmonary embolism - No signs of active hemorrhage at this time - Patient remains hemodynamically stable - Pulmonology was consulted for possible bronchoscopy Plan: - Keep sputum receptacle at bedside to quantify amount of hemoptysis - LE Dopplers unremarkable; per recommendations of pulmonology, will discontinue heparin drip - Keep NPO at midnight for possible bronchoscopy tomorrow if patient still has persistent hemoptysis - Time Spent with Patient Total time spent is greater than 50% in coordination of care (as documented) at patient's floor/unit and/or counseling patient: Internal Medicine: Result - Labs CBC & Chem 7: 12/12/18 13:00 12/12/18 04:00 Labs: Short CBC 12/12/18 Range/Units 04:00 WBC 8.0 (4.3-11.1) K/mcL Hgb 8.5 L (11.5-15.4) g/dL Hct 27.9 L (35.3-44.9) % Plt Count 366 (140-400) K/mcL Neutrophils # 5.8 (1.6-8.9) K/mcL BMP 12/12/18 04:00 Sodium 137 Potassium 3.8 Chloride 101 Carbon Dioxide 32 H BUN 17 Creatinine 0.59 L Glucose 160 H Calcium 8.8 Urine 12/11/18 Range/Units 12:40 Urine Color Yellow (Yellow) Urine Clarity Clear (Clear) Urine pH 8.5 H (5.0-8.0) pH Units Ur Specific [place] 1.011 (1.010-1.025) Urine Protein Negative (Neg-Trace) mg/dL Urine Glucose (UA) Normal (Normal) mg/dL - ABG Interpretation ABG results: ABG ABG pH 7.52 pH Units (7.32-7.45) H 12/09/18 15:40 ABG pCO2 48 mmHg (35-45) H 12/09/18 15:40 ABG pO2 144 mmHg (85-104) H 12/09/18 15:40 ABG O2 Saturation 99 % (95-98) H 12/09/18 15:40 PT/INR, D-dimer PT 15.1 Seconds (9.4-12.1) H 12/10/18 14:54 - Impressions Impressions Echocardiogram 12/10/18 15:44 Impressions: LVEF 55%. Mild concentric left ventricular hypertrophy. Indeterminate diastolic function. Moderately dilated right ventricle with mild right ventricular hypokinesis. Mildly dilated right atrium. Mild tricuspid regurgitation. No pulmonary hypertension. Left Ventricular Wall Motion: Rest Echo Findings All wall segments showed normal motion. Findings: Study Quality * Technically adequate exam. ECG Findings * Sinus tachycardia. Left Ventricle * LVEF 55%. * Normal LV chamber size, wall thickness and systolic function. * Mild concentric left ventricular hypertrophy. * Indeterminate diastolic function. Right Ventricle * Moderately dilated right ventricle with grossly normal * Mild right ventricular hypokinesis. Left Atrium * Normal left atrial size. Right Atrium * Mildly dilated right atrium. Interatrial Septum * Interatrial septum not well evaluated. * No evidence of PFO by color Doppler. Aortic Valve * Trileaflet aortic valve. * No aortic stenosis. * No aortic regurgitation. Mitral Valve * Mild mitral annular calcification * Trace mitral regurgitation. * No mitral stenosis. Tricuspid Valve * Normal tricuspid valve structure. * No tricuspid stenosis. * Mild tricuspid regurgitation. * Estimated RVSP is 13 mmHg. * Estimated RA pressure is 8 mmHg. * No pulmonary hypertension. Pulmonic Valve * Pulmonic valve is not well visualized. * No pulmonic stenosis. * No pulmonic regurgitation. Aorta * Normally sized aortic root. Pericardium * There is a trivial to small pericardial effusion present. * There is no echocardiographic evidence of tamponade. IVC * The IVC is dilated. * > 50% respiratory change Consult Discharge Plan - Plan Referrals: Aren Malik Jr, MD [Primary Care Provider] - <Marilee Thakkar - Last Filed: 12/12/18 15:28> Hospitalist Progress Note - Encounter Date of Encounter: 12/12/18 - Exam Vitals: Temp Pulse Resp BP Pulse Ox 98.5 F 104 17 125/74 96 12/12/18 11:40 12/12/18 11:40 12/12/18 11:40 12/12/18 11:40 12/12/18 11:40 - Assessment and Plan (1) Acute exacerbation of chronic obstructive airways disease Current Visit: Yes Status: Acute (2) Cavitary pneumonia Current Visit: Yes Status: Acute (3) Diarrhea Current Visit: Yes Status: Acute (4) Pulmonary embolism Current Visit: Yes Status: Acute (5) Hemoptysis Current Visit: Yes Status: Acute - Time Spent with Patient Total time spent is greater than 50% in coordination of care (as documented) at patient's floor/unit and/or counseling patient: Internal Medicine: Result - Labs CBC & Chem 7: 12/12/18 13:00 12/12/18 04:00 Labs: Short CBC 12/12/18 12/12/18 Range/Units 04:00 13:00 WBC 8.0 (4.3-11.1) K/mcL Hgb 8.5 L 9.8 L (11.5-15.4) g/dL Hct 27.9 L 31.4 L (35.3-44.9) % Plt Count 366 (140-400) K/mcL Neutrophils # 5.8 (1.6-8.9) K/mcL BMP 12/12/18 04:00 Sodium 137 Potassium 3.8 Chloride 101 Carbon Dioxide 32 H BUN 17 Creatinine 0.59 L Glucose 160 H Calcium 8.8 - ABG Interpretation ABG results: ABG ABG pH 7.52 pH Units (7.32-7.45) H 12/09/18 15:40 ABG pCO2 48 mmHg (35-45) H 12/09/18 15:40 ABG pO2 144 mmHg (85-104) H 12/09/18 15:40 ABG O2 Saturation 99 % (95-98) H 12/09/18 15:40 PT/INR, D-dimer PT 15.1 Seconds (9.4-12.1) H 12/10/18 14:54 - Attending Attestation I examined this patient and my medical decision-making was reviewed with the Resident Physician. I agree with the documented findings, disposition and treatment plan as described except to the extent set forth below. <Kun Garcias - Last Filed: 12/12/18 14:29> (3) Pulmonary embolism Qualifiers: Acute cor pulmonale presence: without acute cor pulmonale Qualified Code(s): I26.99 - Other pulmonary embolism without acute cor pulmonale <Marilee Thakkar - Last Filed: 12/12/18 15:28> (4) Pulmonary embolism Qualifiers: Acute cor pulmonale presence: without acute cor pulmonale Qualified Code(s): I26.99 - Other pulmonary embolism without acute cor pulmonale
[2018-12-12] MEDS: UMECLIDINIUM BROMIDE IH SCH (11:07)
--- NOTE | 2018-12-12 11:17 | Pulmonology Progress Note ---
Date of Encounter: 12/12/18 Time of Encounter: 11:14 Assessment and Plan (1) Hemoptysis Current Visit: Yes Status: Acute This is minor hemoptysis mixed with sputum I do not see evidence of rupa expectoration of bright red blood. 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 Patient coughs up more than 250 mL of bright red blood at any time or cumulative within a 12 hour period recommend transferring to the ICU for further management of massive hemoptysis Please keep a sputum receptacle at bedside so we can quantify the amount of hemoptysis (2) Pulmonary embolism Current Visit: Yes Status: Acute This is a controversial diagnosis of nonocclusive segmental filling defects which are faintly visible. There is no evidence of right heart strain or hemodynamic instability Given the minor hemoptysis I believe that the risk-benefit is on holding heparin acutely especially given that is no evidence of DVT. If the patient were to have a more proximal pulmonary embolus with significant clot burden I would likely suggest continuation of heparin at this time however she continues to have minor but persistent hemoptysis with a questionable diagnosis of PE Qualifiers: Acute cor pulmonale presence: without acute cor pulmonale Qualified Code(s): I26.99 - Other pulmonary embolism without acute cor pulmonale (3) Cavitary lesion of lung Current Visit: No Status: Acute Likely infectious I cannot rule out malignancy or combination of the 2. ID following for antimicrobial selection Soraya Keenan was offered the patient during this hospitalization and she elected to have more conservative management with a repeat CT scan in the 8 weeks Would keep nothing by mouth at midnight may need to reconsider if she is having persistent hemoptysis and in which case I would recommend bronchoscopy and biopsy (4) Acute exacerbation of chronic obstructive airways disease Current Visit: Yes Status: Acute Current management is acceptable however I think in this situation would switch to IV methylprednisolone 40 mg 3 times a day until resolution of hemoptysis Subjective Principal diagnosis: Pneumonia Interval history: Pulmonary was asked to reevaluate the patient as she had undergone CT angiogram which was suggestive however not definitive for filling defects (nonocclusive) in the segmental/subsegmental arteries and in the lingula. She has been on heparin infusion but has had persistent episodes of of coughing up sputum mixed with blood she says it happens almost all the time when she coughs fact she showed me a napkin with the darkish red blood mixed in with sputum. Otherwise she has been hemodynamically stable and says she is feeling a bit better than when she arrived to the hospital. Objective PUL Vital signs: Last Vital Signs Temp 97.8 F 12/12/18 06:45 Pulse 82 12/12/18 06:45 Resp 16 12/12/18 09:48 BP 124/66 12/12/18 06:45 Pulse Ox 97 12/12/18 09:48 Results - Laboratory Findings CBC and BMP: 12/12/18 04:00 12/12/18 04:00 ABG ABG pH 7.52 pH Units (7.32-7.45) H 12/09/18 15:40 ABG pCO2 48 mmHg (35-45) H 12/09/18 15:40 ABG pO2 144 mmHg (85-104) H 12/09/18 15:40 ABG O2 Saturation 99 % (95-98) H 12/09/18 15:40 PT/INR, D-dimer PT 15.1 Seconds (9.4-12.1) H 12/10/18 14:54 Abnormal lab findings: Abnormal lab results RBC 2.92 M/mcL (3.82-4.97) L 12/12/18 04:00 Hgb 8.5 g/dL (11.5-15.4) L 12/12/18 04:00 Hct 27.9 % (35.3-44.9) L 12/12/18 04:00 MCHC 30.5 g/dL (31.6-35.5) L 12/12/18 04:00 PT 15.1 Seconds (9.4-12.1) H 12/10/18 14:54 APTT 80.5 Seconds (26.0-36.0) H 12/11/18 00:50 ABG pH 7.52 pH Units (7.32-7.45) H 12/09/18 15:40 ABG pCO2 48 mmHg (35-45) H 12/09/18 15:40 ABG pO2 144 mmHg (85-104) H 12/09/18 15:40 ABG HCO3 39 mEq/L (21-27) H 12/09/18 15:40 ABG Total CO2 40 mEq/L (20-26) H 12/09/18 15:40 ABG O2 Saturation 99 % (95-98) H 12/09/18 15:40 ABG Base Excess 14 mEq/L (-2 to 3) H 12/09/18 15:40 Carbon Dioxide 32 mEq/L (23-29) H 12/12/18 04:00 Creatinine 0.59 mg/dL (0.60-1.20) L 12/12/18 04:00 BUN/Creatinine Ratio 29 (6-26) H 12/12/18 04:00 Glucose 160 mg/dL (70-105) H 12/12/18 04:00 B-Natriuretic Peptide 292 pg/mL (Less than 100) H 12/09/18 13:50 Urine pH 8.5 pH Units (5.0-8.0) H 12/11/18 12:40 - Microbiology Findings Microbiology Findings: Microbiology, Last 48 Hours 12/11/18 15:50 Sputum Culture - Preliminary Sputum 12/11/18 00:50 Cryptococcal Antigen - Final Serum - Diagnostic Findings Chest x-ray: report reviewed, image reviewed CT scan - chest: report reviewed, image reviewed U/S of Legs: report reviewed - Clinical Findings Intake & Output: Intake & Output 12/11/18 12/12/18 12/12/18 23:59 07:59 15:59 Intake Total 590 / 590 350 / 350 240 / 240 Output Total 500 / 500 350 / 350 Balance 90 / 90 0 / 0 240 / 240 Consult Discharge Plan - Plan Referrals: Aren Malik Jr, MD [Primary Care Provider] -
--- NOTE | 2018-12-12 12:35 | Electrocardiograph Report ---
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
[2018-12-12 13:50] LABS: Hematocrit 31.4 % (35.3-44.9); Hemoglobin 9.8 g/dL (11.5-15.4)
[2018-12-12] MEDS: *HR* Metoprolol 5 MG/5 ML VIAL IVP PRN (17:34)
[2018-12-12] MEDS: Melatonin 3 MG TABLET PO SCH (20:16)
[2018-12-13] MEDS: Ipratropium/Albuterol Neb 3 ML IH SCH ×4 (04:17→21:54)
[2018-12-13 04:50] LABS: Basophils % 0.2 %; Eosinophils % 0.3 %; Hematocrit 28.1 % (35.3-44.9); Hemoglobin 8.6 g/dL (11.5-15.4); Immature Granulocytes % 1.8 % (0-4); Lymphocytes # 1.8 K/mcL (0.6-4.6); Lymphocytes % 16.4 %; Mean Corpuscular HGB Conc 30.6 g/dL (31.6-35.5); Mean Corpuscular Hemoglobin 29.2 pg (28.0-33.3); Mean Corpuscular Volume 95.3 fL (83.0-100.0); Mean Platelet Volume 10.1 fL (9.4-12.4); Monocytes # 1.2 K/mcL (0.0-1.3); Monocytes % 10.5 %; Platelet Count 375 K/mcL (140-400); Red Blood Count 2.95 M/mcL (3.82-4.97); Red Cell Distribution Width 14.6 % (11.5-14.5); Segmented Neutrophils % 70.8 %
[2018-12-13 05:11] LABS: BUN/Creatinine Ratio 29 (6-26); Blood Urea Nitrogen 17 mg/dL (8-23); Calcium 8.8 mg/dL (8.6-10.3); Carbon Dioxide 33 mEq/L (23-29); Chloride 104 mEq/L (98-107); Glucose 137 mg/dL (70-105); Osmolality,Calculated 294 (280-300); Potassium 3.7 mEq/L (3.5-5.1); Sodium 140 mEq/L (136-145); eGFR For Non-African Americans > 60 (> 60)
[2018-12-13] MEDS ORDERED: *HR* FentaNYL (PF) 100 MCG/2 ML VIAL ONE (08:23)
[2018-12-13] MEDS ORDERED: *HR* Propofol 200 MG/20 ML VIAL IVP ONE (08:23)
[2018-12-13] MEDS ORDERED: Lidocaine -MPF 4% 5 ML AMPUL ONE (08:24)
[2018-12-13] MEDS ORDERED: Lidocaine -MPF 2% 2 ML VIAL ONE (08:24)
[2018-12-13] MEDS ORDERED: *HR* Succinylcholine 200 MG/10 ML VIAL IVP ONE (08:24)
--- NOTE | 2018-12-13 08:25 | Internal Med Progress Note ---
<Rashaad Powell - Last Filed: 12/13/18 13:22> Hospitalist Progress Note - Encounter Date of Encounter: 12/13/18 Time of Encounter: 09:56 - Subjective Interval History: Saw patient after bronchoscopy. She reports her sob is a "bit better." She denies any hemoptysis overnight. Since her procedure she has had pinkish sputum. - Exam Vitals: Temp Pulse Resp BP Pulse Ox 98.4 F 114 22 166/82 96 12/13/18 08:17 12/13/18 08:17 12/13/18 08:17 12/13/18 08:17 12/13/18 08:17 Exam: General: pleasant, without distress Cardiovascualr: Regular rate and rhythm with no murmur, absent gallops or rubs, absent pedal edema, radial pulses 2 out of 4 Lungs: Bilaterally diminished, not in respiratory distress Abdomen: Soft nontender, nondistended positive bowel sounds, absent hepatomegaly Skin: warm and dry, absent rash, absent open wounds and nodules MSK: absent clubbing, cyanosis, joints without swelling Neuro: Cranial nerves II through XII intact, UE and LE sensation equal bilaterally, UE and LEstrength 5/5, alert oriented 3, Psych: good insight and judgment - Assessment and Plan (1) Acute exacerbation of chronic obstructive airways disease Current Visit: Yes Status: Acute Assessment and Plan: 2nd to cavitary pneumonia bronchoscopy found multiple sites of mucus plugging and an area of chronically inflamed mucosa in the right lower lobe. Continue duo nebs, prednisone, will start prednisone taper tomorrow and antibi otics. bipap qualifications tonight. (2) Cavitary pneumonia Current Visit: Yes Status: Acute Assessment and Plan: Patient has had a cavitary lung lesion since October 2017 and was evaluated at [facility]. At that time bronchoscopy was done and path results were negative for malignancy and BAL culture grew sudarshan albicans. She was on clindamycin and Levaquin after discharge. Repeat CT during this admission shows decreasing size of cavitary lesion. Patient has been on vancomycin and Zosyn and over the weekend had multiple episodes of hemoptysis after being started on heparin drip for pulmonary embolism. Underwent bronchoscopy today and we will await BAL cultures Serum cryptococcal antigens negative sputum cultures preliminary negative, blood cultures negative. (3) Diarrhea Current Visit: Yes Status: Suspected Assessment and Plan: Patient currently on Imodium. C. difficile toxin was negative. (4) DVT prophylaxis Current Visit: Yes Status: Acute Assessment and Plan: EPCDs (5) Hemoptysis Current Visit: Yes Status: Acute Assessment and Plan: Patient had hemoptysis over the weekend. Underwent bronchoscopy today which showed fresh blood in the superior segment of the right lower lobe BAL was blood tinged, Hemoglobin is 8.6 this morning we will continue to follow. (6) Pulmonary embolism Current Visit: Yes Status: Suspected Assessment and Plan: patient had tachycardia and hypoxia and a CTA chest was ordered on Thursday12/10/2018 which showed segmented filling defects of the lingula. Patient was started on heparin drip but started having hemoptysis Pulmonology recommended discontinuing heparin drip as there was no right heart strain on echocardiogram and bilateral Dopplers were negative. - Time Spent with Patient Total time spent is greater than 50% in coordination of care (as documented) at patient's floor/unit and/or counseling patient: Internal Medicine: Result - Labs CBC & Chem 7: 12/13/18 04:20 12/13/18 04:20 Labs: Short CBC 12/12/18 12/13/18 Range/Units 13:00 04:20 WBC 11.2 H (4.3-11.1) K/mcL Hgb 9.8 L 8.6 L (11.5-15.4) g/dL Hct 31.4 L 28.1 L (35.3-44.9) % Plt Count 375 (140-400) K/mcL Neutrophils # 8.0 (1.6-8.9) K/mcL BMP 12/13/18 04:20 Sodium 140 Potassium 3.7 Chloride 104 Carbon Dioxide 33 H BUN 17 Creatinine 0.58 L Glucose 137 H Calcium 8.8 - ABG Interpretation ABG results: ABG ABG pH 7.52 pH Units (7.32-7.45) H 12/09/18 15:40 ABG pCO2 48 mmHg (35-45) H 12/09/18 15:40 ABG pO2 144 mmHg (85-104) H 12/09/18 15:40 ABG O2 Saturation 99 % (95-98) H 12/09/18 15:40 PT/INR, D-dimer PT 15.1 Seconds (9.4-12.1) H 12/10/18 14:54 Consult Discharge Plan - Plan Referrals: Aren Malik Jr, MD [Primary Care Provider] - <Marilee Thakkar - Last Filed: 12/13/18 18:57> Hospitalist Progress Note - Encounter Date of Encounter: 12/13/18 - Exam Vitals: Temp Pulse Resp BP Pulse Ox 97.7 F 105 20 128/81 90 12/13/18 15:42 12/13/18 15:42 12/13/18 16:11 12/13/18 15:42 12/13/18 16:11 - Assessment and Plan (1) Acute exacerbation of chronic obstructive airways disease Current Visit: Yes Status: Acute (2) Cavitary pneumonia Current Visit: Yes Status: Acute (3) Diarrhea Current Visit: Yes Status: Acute (4) Pulmonary embolism Current Visit: Yes Status: Suspected (5) Hemoptysis Current Visit: Yes Status: Acute - Time Spent with Patient Total time spent is greater than 50% in coordination of care (as documented) at patient's floor/unit and/or counseling patient: Internal Medicine: Result - Labs CBC & Chem 7: 12/13/18 04:20 12/13/18 04:20 Labs: Short CBC 12/13/18 Range/Units 04:20 WBC 11.2 H (4.3-11.1) K/mcL Hgb 8.6 L (11.5-15.4) g/dL Hct 28.1 L (35.3-44.9) % Plt Count 375 (140-400) K/mcL Neutrophils # 8.0 (1.6-8.9) K/mcL BMP 12/13/18 04:20 Sodium 140 Potassium 3.7 Chloride 104 Carbon Dioxide 33 H BUN 17 Creatinine 0.58 L Glucose 137 H Calcium 8.8 - ABG Interpretation ABG results: ABG ABG pH 7.52 pH Units (7.32-7.45) H 12/09/18 15:40 ABG pCO2 48 mmHg (35-45) H 12/09/18 15:40 ABG pO2 144 mmHg (85-104) H 12/09/18 15:40 ABG O2 Saturation 99 % (95-98) H 12/09/18 15:40 PT/INR, D-dimer PT 15.1 Seconds (9.4-12.1) H 12/10/18 14:54 - Attending Attestation I examined this patient and my medical decision-making was reviewed with the Resident Physician. I agree with the documented findings, disposition and treatment plan as described except to the extent set forth below. <Rashaad Powell - Last Filed: 12/13/18 13:22> (3) Diarrhea Qualifiers: Diarrhea type: unspecified type Qualified Code(s): R19.7 - Diarrhea, unspecified (6) Pulmonary embolism Qualifiers: Pulmonary embolism type: unspecified Chronicity: acute Acute cor pulmonale presence: without acute cor pulmonale Qualified Code(s): I26.99 - Other pulmonary embolism without acute cor pulmonale <Marilee Thakkar - Last Filed: 12/13/18 18:57> (4) Pulmonary embolism Qualifiers: Pulmonary embolism type: unspecified Chronicity: acute Acute cor pulmonale presence: without acute cor pulmonale Qualified Code(s): I26.99 - Other pulmonary embolism without acute cor pulmonale
[2018-12-13] MEDS ORDERED: Ondansetron 4 MG/2 ML VIAL ONE (08:34)
--- NOTE | 2018-12-13 08:48 | Infectious Disease Progress No ---
ID Progress Note - Subjective Subjective: No acute events over night. Patient has remained afebrile, tachycardic into the 150s, and using BiPAP or Nasal cannula. She is Vancomycin and Zosyn day #5 of therapy, Levaquin was D/C'd on 12/10. WBC was trending downward, but increased slight today to 11.2 from 8.0 yesterday. SCr os 0.58 and CrCl is 96 mL/min. Pulmonary team saw the patient and recommended repeat Bronchoscopy; which was performed this morning by Dr. Russell. Today when I saw the patient, she has just returned from her bronchoscopy. She was placed on BiPAP. She admits to feeling a little better but is still having significant difficulty with her breathing. She denies chest pain, abdominal pain, dysuria, pain in his extremities. Urine Legionella/ S. pneumoniae: negative Blood cultures x2 pending CTA chest on 12/10 revealed: 1. CT findings of partially occlusive pulmonary emboli in the segmental branches of the lingula as described in body of report. 2. No significant interval change from 12/09/2018 in a right lower lobe cavitary mass. Again diagnostic considerations would include cavitary pneumonia, fungal infection, TB, infected bulla or less likely malignancy. 3. Unchanged trace pericardial effusion. 4. Mild enlargement of the main pulmonary artery, correlate for signs or symptoms of pulmonary hypertension. Sputum culture prelim.: few yeasts, no bacteria observed Serum Cryptococcal antigen: negative Bronchoscopy 12/13 revealed: Mucus plugging, in the airway, found in the Right lower lobe an the left lower lobe. Mucus was notable, mucoid, and thick. Underlying mucosa was inflamed with areas of chronic inflammation evident in the right lower lobe. Fresh blood was found in the superior segment of the right lower lobe and the bleeding site was identified. Thick, mucoid secretions were found throughout the tracheobronchial tree, partially obstructing the airway. BAL was performed in the right lower lobe and sent for the following: cell count, bacterial culture, viral smear/ culture, fungal and AFB analysis and cytology. - Objective CBC & Chem 7: 12/14/18 03:55 12/14/18 03:55 - Exam Vitals: Temp Pulse Resp BP Pulse Ox 98.4 F 114 22 166/82 96 12/13/18 08:17 12/13/18 08:17 12/13/18 08:17 12/13/18 08:17 12/13/18 08:17 Exam: Patient status post bronchoscop. Alert & oriented. Cooperative. Lungs: tachypenic; rhonchi, rales throughout Heart: tachycardic, regular Abdomen: soft, non-tender, bowel sounds present and normal - Assessment and Plan (1) Sepsis Current Visit: No Status: Acute had 2 SIRS criteria on admission Etiology: likely secondary to pulmonary infection (pulmonary cavitary lesion vs. bronchitis) BAL results pending, blood cultures pending Recommendations: - Continue antibiotic therapy until microbiology results - Monitor WBC, renal function, vitals for worsening clinical picture Qualifiers: Sepsis type: sepsis due to unspecified organism Qualified Code(s): A41.9 - Sepsis, unspecified organism SNOMED Code(s): 22975743 (2) Cavitary lesion of lung Current Visit: No Status: Acute Etiology: not clear at this time; Bacterial vs. Non-TB Mycobacterium vs Fungal, as well as Malignancy Previous admission: first seen on CT 11/11: 4x6 cm with air fluid level; s/p bronch which was non revealing; AFB negative; Tx with Levofloxacin and Clindamyc in for 3 weeks PPD at [facility] which was negative (per patient) Repeat PPD on this admission, negative Repeat CT 12/09/2018: The previously noted right lower lobe cavitary mass has slightly decreased in size measuring 3.3 x 6.4 cm, previously measuring 4.0 x 5.9 cm. There is an air-fluid level with a thick nodular rim RIP negative; urine legionella and S. Pneumo negative Pulmonology following; d/w Dr. Russell Bronchoscopy 12/13/2018: Mucus plugging, in the airway, found in the Right lower lobe an the left lower lobe. Mucus was notable, mucoid, and thick. Underlying mucosa was inflamed with areas of chronic inflammation evident in the right lower lobe. Fresh blood was found in the superior segment of the right lower lobe and the bleeding site was identified. Thick, mucoid secretions were found throughout the tracheobronchial tree, partially obstructing the airway. BAL was performed in the right lower lobe and sent for the following: cell count, bacterial culture, viral smear/ culture, fungal and AFB analysis and cytology. d/c levofloxacin (concern for rash from drug allergy to levofloxacin) Recommendations: - check MRSA screen - Wait for BAL, cultures to result - Continue Vancomycin and Zosyn until microbiology results SNOMED Code(s): 276292053 (3) COPD (chronic obstructive pulmonary disease) Current Visit: Yes Status: Chronic Qualifiers: COPD type: unspecified COPD Qualified Code(s): J44.9 - Chronic obstructive pulmonary disease, unspecified SNOMED Code(s): 67779596 (4) Diarrhea Current Visit: Yes Status: Acute SNOMED Code(s): 08873290 (5) Rash Current Visit: Yes Status: Acute maculopapular rash on trunk sparing the face and the extremities mildly pruritic started the Thursday prior to admission not likely due to any antibiotics we gave her here maybe due to levofloxacin? SNOMED Code(s): 849228840 Consult Discharge Plan - Plan Referrals: Aren Malik Jr, MD [Primary Care Provider] - - Attending Attestation I examined this patient and my medical decision-making was reviewed with the Resident Physician. I agree with the documented findings, disposition and treatment plan as described except to the extent set forth below. Patient seen and examined. Appears comfortable. No acute distress. Lungs air sounds coarse bilaterally with some expiratory wheezing Respiratory rate and rhythm Abdomen soft nontender nondistended Labs reviewed Cultures noted Fungal serologies some of the lumbar back and noted Assessment and plan: 1.Cavitary lung lesion 2.Sepsis 3.Advanced COPD 4.Diarrhea 5.Rash Recommendations Continue broad-spectrum antibiotics with vancomycin and Zosyn. We think this is most likely due to bacterial infection. Awaiting bronchoscopy. PPD was done and it was negative. Fungal serologies reviewed. Duration of treatment depends on the clinical picture
[2018-12-13] MEDS: Ringers Solution, Lactated 1,000 ML IVC SCH (08:50)
--- NOTE | 2018-12-13 08:55 | Anesthesia Evaluation PreOp ---
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: Denies Any Significant HX Other Medical History: Denies Any Significant HX Anesthesia History: No Prior Anesthetic Complications, Past Anesthesia (back surgery, CROW, breast, choecystectomy, DCS, bronch/Ebus) Alcohol Use: none Drug use: none Medications and Allergies Citalopram [CeleXA] 20 mg PO DAILY 02/05/16 [History] Loratadine [Claritin] 10 mg PO DAILY 02/05/16 [History] Lovastatin [Mevacor] 40 mg PO HS 02/05/16 [History] Metoprolol [Lopressor] 25 mg PO BID 02/05/16 [History] Nitroglycerin [Nitrostat] 0.4 mg SL Q5M PRN 02/05/16 [History] Albuterol Sulfate [Albuterol Inhaler] 2 puff IH Q4HR PRN #2 hfa.aer.[email or web address] 02/08/16 [Rx] Roflumilast [Daliresp] 500 mcg PO DAILY 11/11/18 [History] Aspirin [Lo-Dose Aspirin EC] 81 mg PO DAILY 11/12/18 [History] Budesonide/Formoterol 160/4.5 [Symbicort 160/4.5] 2 puff IH BIDR 11/12/18 [History] L. Acidophilus/Pectin, [place] [Acidophilus Probiotic Capsule] 1 cap PO DAILY 11/12/18 [History] Multivitamin [One Daily] 1 tab PO DAILY 11/12/18 [History] Umeclidinium [place] [Incruse Ellipta] 2 puff IH DAILY 11/12/18 [History] raNITIdine HCl [Zantac] 150 mg PO BID 11/12/18 [History] GuaiFENesin ER [Mucinex] 600 mg PO BID PRN 30 Days #60 tbbp.12hr 11/19/18 [Rx] Menthol [Cough Drops] 9.1 mg PO Q2H PRN #0 lozenge 11/19/18 [Rx] Ipratropium/Albuterol Neb [Duoneb] 3 ml IH Q4HR PRN 12/09/18 [History] Melatonin 6 mg PO HS 12/09/18 [History] Allergy/AdvReac Type Severity Reaction Status Date / Time clarithromycin [From Biaxin] Allergy Gastrointestinal Verified 07/01/18 12:50 Upset codeine AdvReac See Verified 07/01/18 12:50 Comments lansoprazole [From Prevacid] AdvReac ulcer Verified 07/01/18 12:50 lisinopril AdvReac Cough Verified 07/01/18 12:50 meloxicam [From Mobic] AdvReac ulcer Verified 07/01/18 12:50 opium (anthroposophic) AdvReac nausea/vomi Verified 07/01/18 12:50 [Opium (Anthroposophic)] ting - Meds/Allergy Pre-op Review Medications Reviewed: Yes Allergies Reviewed: Yes Beta Blockers on Current Med List: No Anesthesia Results - Labs 12/13/18 04:20 12/13/18 04:20 - Imaging EKG: report reviewed, image reviewed (Sinus rhythm Inferior infarct, age indeterminate Lateral leads are also involved Prolonged QT interval Baseline artifact) Additional studies: 12-10-18 TTE: EV/EV echocardiogram Impressions: LVEF 55%. Mild concentric left ventricular hypertrophy. Indeterminate diastolic function. Moderately dilated right ventricle with mild right ventricular hypokinesis. Mildly dilated right atrium. Mild tricuspid regurgitation. No pulmonary hypertension. Anesthesia Exam Last Vital Signs Temp 98.4 F 12/13/18 08:17 Pulse 114 12/13/18 08:17 Resp 22 12/13/18 08:17 BP 166/82 12/13/18 08:17 Pulse Ox 96 12/13/18 08:17 Weight: 71 kg NPO (# of Hours): > 8 hrs - HEENT Pupil (Motor): Pupils equal, EOMI Mallampati: III Teeth: Missing, Poor dentition Oral Opening: Greater than 3 - [employer]S ANALYST LOC: Oriented - Cardiac Rhythm: Regular Murmur: None - Pulmonary Breath Sounds: bilateral Clear (decreased breath sounds bilaterally) Respiratory Effort: Symmetrical Anesthesia Assess/Plan ASA Score: 4 Level of consciousness: Cooperative Anesthetic Plan: General, Precautions (Negative pressure isolation room; all staff to wear N-95 mask during procedure, N-95 in transport if patient coughing) Monitoring Plan: Standard Monitors Recovery Plan: PACU
[2018-12-13] MEDS ORDERED: *HR* Metoprolol 5 MG/5 ML VIAL IVP ONE (09:19)
[2018-12-13] MEDS ORDERED: Esmolol 100 MG/10 ML VIAL IVP ONE (09:19)
[2018-12-13] MEDS ORDERED: *HR* EPINEPHrine 1 MG/10 ML SYRINGE INTRATRACH PRN (09:20)
[2018-12-13] MEDS: Budesonide/Formoterol 160/4.5 1 PUFF INH IH SCH ×2 (09:54→21:54)
[2018-12-13] MEDS: Piperacillin/Tazobactam 3.375 GM in 0.9 % Sodium Chloride Mini Bag 100 ML IVPB SCH ×2 (11:24→17:00)
[2018-12-13] MEDS: Aspirin Enteric Coated 81 MG Tablet PO SCH (11:25)
[2018-12-13] MEDS: Loratadine 10 MG TABLET PO SCH (11:25)
[2018-12-13] MEDS: predniSONE 20 MG TABLET PO SCH (11:25)
[2018-12-13] MEDS: Multivit/Ca/Min/Fe/FA 1 TAB TABLET PO SCH (11:25)
[2018-12-13] MEDS: Famotidine 20 MG TABLET PO SCH ×2 (11:26→21:31)
[2018-12-13] MEDS: Lactobacillus 1 EACH CAP.SPRINK PO SCH (11:26)
[2018-12-13 16:26] LABS: QuantiFERON Mitogen minus NIL 0.84 IU/mL
[2018-12-13] MEDS: Melatonin 3 MG TABLET PO SCH (21:32)
[2018-12-13 22:31] LABS: Appearance of Body Fluid Cloudy (Clear); Volume of Body Fluid 10 mL
[2018-12-14] MEDS: Piperacillin/Tazobactam 3.375 GM in 0.9 % Sodium Chloride Mini Bag 100 ML IVPB SCH ×3 (00:05→17:52)
[2018-12-14] MEDS: Ipratropium/Albuterol Neb 3 ML IH SCH ×4 (04:08→21:55)
[2018-12-14 04:13] LABS: Hematocrit 28.1 % (35.3-44.9); Hemoglobin 8.7 g/dL (11.5-15.4); Mean Corpuscular Hemoglobin 29.6 pg (28.0-33.3); Mean Corpuscular Volume 95.6 fL (83.0-100.0); Platelet Count 375 K/mcL (140-400); Red Blood Count 2.94 M/mcL (3.82-4.97); Red Cell Distribution Width 14.6 % (11.5-14.5)
[2018-12-14 04:37] LABS: BUN/Creatinine Ratio 28 (6-26); Blood Urea Nitrogen 17 mg/dL (8-23); Calcium 8.4 mg/dL (8.6-10.3); Carbon Dioxide 32 mEq/L (23-29); Chloride 104 mEq/L (98-107); Glucose 140 mg/dL (70-105); Osmolality,Calculated 296 (280-300); Potassium 3.9 mEq/L (3.5-5.1); Sodium 141 mEq/L (136-145); eGFR For Non-African Americans > 60 (> 60)
[2018-12-14 05:26] LABS: ABG Base Excess 8 mEq/L (-2 to 3); ABG HCO3 32 mEq/L (21-27); ABG Oxygen Saturation 79 % (95-98); ABG PCO2 47 mmHg (35-45); ABG PH 7.45 pH Units (7.32-7.45); ABG PO2 42 mmHg (85-104); ABG TCO2 34 mEq/L (20-26)
[2018-12-14] MEDS ORDERED: *HR* EPINEPHrine 1 MG/10 ML SYRINGE ONE (07:14)
[2018-12-14] MEDS: predniSONE 20 MG TABLET PO SCH (07:57)
[2018-12-14] MEDS: Lactobacillus 1 EACH CAP.SPRINK PO SCH (07:57)
[2018-12-14] MEDS: Famotidine 20 MG TABLET PO SCH ×2 (07:57→20:19)
[2018-12-14] MEDS: Loratadine 10 MG TABLET PO SCH (07:57)
[2018-12-14] MEDS: Aspirin Enteric Coated 81 MG Tablet PO SCH (07:57)
[2018-12-14] MEDS: Multivit/Ca/Min/Fe/FA 1 TAB TABLET PO SCH (07:57)
[2018-12-14] MEDS: Ringers Solution, Lactated 1,000 ML IVC SCH (08:03)
--- NOTE | 2018-12-14 08:30 | Infectious Disease Progress No ---
ID Progress Note Date of Encounter: 12/14/18 Time of Encounter: 09:17 - Subjective Subjective: No acute events over night. Patient has remained afebrile, tachycardic into the 120s, and using BiPAP or Nasal cannula. She is Vancomycin and Zosyn day #6 of therapy, Levaquin was D/C'd on 12/10. WBC trending downward, 10.7 today from 11.2 yesterday. SCr os 0.61 and CrCl is 91 mL/min. Bronchoscopy performed 12/13. Today when I saw the patient, she was sitting comfortably on the side of her bed. She is tolerating PO without issue. She is currently on nasal cannula oxygen, which she is tolerating. Since the bronchoscopy, she is coughing up dark blood and green sputum. She also states that her diarrhea has improved and lessened in frequency. She denies fevers, chest pain, abdominal pain, dysuria, pain in his extremities. Urine Legionella/ S. pneumoniae: negative; RIP negative; Nasal MRSA negative Blood cultures x2 pending; BAL cultures and analysis pending CTA chest on 12/10 revealed: 1. CT findings of partially occlusive pulmonary emboli in the segmental branches of the lingula as described in body of report. 2. No significant interval change from 12/09/2018 in a right lower lobe cavitary mass. Again diagnostic considerations would include cavitary pneumonia, fungal infection, TB, infected bulla or less likely malignancy. 3. Unchanged trace pericardial effusion. 4. Mild enlargement of the main pulmonary artery, correlate for signs or symptoms of pulmonary hypertension. Sputum culture prelim.: few yeasts, no bacteria observed Serum Cryptococcal antigen: negative Bronchoscopy 12/13 revealed: Mucus plugging, in the airway, found in the Right lower lobe an the left lower lobe. Mucus was notable, mucoid, and thick. Underlying mucosa was inflamed with areas of chronic inflammation evident in the right lower lobe. Fresh blood was found in the superior segment of the right lower lobe and the bleeding site was identified. Thick, mucoid secretions were found throughout the tracheobronchial tree, partially obstructing the airway. BAL was performed in the right lower lobe and sent for the following: cell count, bacterial culture, viral smear/ culture, fungal and AFB analysis and cytology. Sputum Smear: Cell Differential: Neutrophils, 97%; Lymphocytes, 3%; Acute inflammation is present; no microorganisms identified. Correlation with microbiology culture results is suggested. - Objective CBC & Chem 7: 12/16/18 03:25 12/16/18 03:25 - Exam Vitals: Temp Pulse Resp BP Pulse Ox 98.5 F 94 18 130/72 93 12/14/18 08:17 12/14/18 08:17 12/14/18 08:17 12/14/18 08:17 12/14/18 08:17 Exam: Patient is alert and oriented. Heart: RRR, not tachycardic Lungs: decreased air movement throughout; crackles and wheezes more prominent on the right versus left lung hernandez - Assessment and Plan (1) Sepsis Status: Acute had 2 SIRS criteria on admission Etiology: likely secondary to pulmonary infection (pulmonary cavitary lesion vs. bronchitis) BAL results pending, blood cultures pending Recommendations: - Continue antibiotic therapy until microbiology results; will likely continue broad spectrum threatment due to initiation of ABX prior to sample retrieval - Monitor WBC, renal function, vitals for worsening clinical picture Qualifiers: Sepsis type: sepsis due to unspecified organism Qualified Code(s): A41.9 - Sepsis, unspecified organism SNOMED Code(s): 44741084 (2) Cavitary lesion of lung Status: Acute Etiology: not clear at this time; Bacterial vs. Non-TB Mycobacterium vs Fungal, as well as Malignancy Previous admission: first seen on CT 11/11: 4x6 cm with air fluid level; s/p [facility] which was non revealing; AFB negative; Tx with Levofloxacin and Clindamycin for 3 weeks PPD at [facility] which was negative (per patient) Repeat PPD on this admission, negative Repeat CT 12/09/2018: The previously noted right lower lobe cavitary mass has slightly decreased in size measuring 3.3 x 6.4 cm, previously measuring 4.0 x 5.9 cm. There is an air-fluid level with a thick nodular rim RIP negative; urine legionella and S. Pneumo negative Pulmonology following; d/w Dr. Russell Bronchoscopy 12/13/2018: Mucus plugging, in the airway, found in the Right lower lobe an the left lower lobe. Mucus was notable, mucoid, and thick. Underlying mucosa was inflamed with areas of chronic inflammation evident in the right lower lobe. Fresh blood was found in the superior segment of the right lower lobe and the bleeding site was identified. Thick, mucoid secretions were found throughout the tracheobronchial tree, partially obstructing the airway. BAL was performed in the right lower lobe and sent for the following: cell count, bacterial culture, viral smear/ culture, fungal and AFB analysis and cytology. d/c levofloxacin (concern for rash from drug allergy to levofloxacin) Recommendations: - check MRSA screen - Wait for BAL, cultures to result - Continue Vancomycin and Zosyn until microbiology results SNOMED Code(s): 167879983 (3) COPD (chronic obstructive pulmonary disease) Status: Chronic Qualifiers: COPD type: unspecified COPD Qualified Code(s): J44.9 - Chronic obstructive pulmonary disease, unspecified SNOMED Code(s): 88694148 (4) Diarrhea Status: Acute SNOMED Code(s): 18325208 (5) Rash Status: Acute maculopapular rash on trunk sparing the face and the extremities mildly pruritic started the Thursday prior to admission not likely due to any antibiotics we gave her here maybe due to levofloxacin? SNOMED Code(s): 050798185 Consult Discharge Plan - Plan Referrals: Liliam Russell MD [Partnered Physician] - 12/27/18 1:00 pm () Aren Malik Jr, MD [Primary Care Provider] - (Patient will follow up with Sherry Tomlinson CNP) Sherry Tomlinson CNP [Advanced Practice Nurse] - 12/23/18 10:00 am Neeta Flaherty MD [Partnered Physician] - 01/04/19 10:00 am () Prescriptions: Amoxicillin/Clavulanate [Augmentin] 875 mg PO BIDWM 28 Days #54 tablet RX: Doxycycline 100 mg PO BID 28 Days #54 capsule RX: predniSONE [PredniSONE] 30 mg PO TAPER #30 tablet - Attending Attestation I examined this patient and my medical decision-making was reviewed with the Resident Physician. I agree with the documented findings, disposition and treatment plan as described except to the extent set forth below. Patient seen and examined. Appears comfortable. No acute distress. Lungs air sounds coarse bilaterally with some expiratory wheezing Respiratory rate and rhythm Abdomen soft nontender nondistended Labs reviewed Cultures noted Fungal serologies some of the lumbar back and noted Assessment and plan: 1.Cavitary lung lesion 2.Sepsis 3.Advanced COPD 4.Diarrhea 5.Rash Recommendations Continue broad-spectrum antibiotics with vancomycin and Zosyn. We think this is most likely due to bacterial infection. Awaiting bronchoscopy. QuantiFERON was done and it was negative. Fungal serologies reviewed. Duration of treatment depends on the clinical picture
--- NOTE | 2018-12-14 08:51 | Internal Med Progress Note ---
<Rashaad Powell - Last Filed: 12/14/18 08:48> Hospitalist Progress Note - Encounter Date of Encounter: 12/14/18 Time of Encounter: 08:49 - Subjective Interval History: No acute events overnight. Patient had BiPAP qualification overnight which she did not qualify for. Regarding BiPAP qualification report it states patient needed at least 4 L of oxygen is to stay above 88%. Her morning ABG shows a PCO2 of 42. This morning patient states her shortness of breath has improved. She is able to ambulate independently. She does report some hemoptysis around 5cc. - Exam Vitals: Temp Pulse Resp BP Pulse Ox 98.5 F 94 18 130/72 93 12/14/18 08:17 12/14/18 08:17 12/14/18 08:17 12/14/18 08:17 12/14/18 08:17 Exam: General: pleasant, without distress Cardiovascualr: Regular rate and rhythm with no murmur, absent gallops or rubs, absent pedal edema, radial pulses 2 out of 4 Lungs: Bilaterally diminished clear, not in respiratory distress Abdomen: Soft nontender, nondistended positive bowel sounds, absent hepatomegaly Skin: warm and dry, absent rash, absent open wounds and nodules MSK: absent clubbing, cyanosis, joints without swelling Neuro: Cranial nerves II through XII intact, UE and LE sensation equal bilaterally, UE and LEstrength 5/5, alert oriented 3, Psych: good insight and judgment - Assessment and Plan (1) Acute exacerbation of chronic obstructive airways disease Current Visit: Yes Status: Acute Assessment and Plan: 2nd to cavitary pneumonia bronchoscopy found multiple sites of mucus plugging and an area of chronically inflamed mucosa in the right lower lobe. Continue duo nebs, prednisone taper started Did not qualify for BiPAP. (2) Cavitary pneumonia Current Visit: Yes Status: Acute Assessment and Plan: Patient has had a cavitary lung lesion since October 2017 and was evaluated at [facility]. At that time bronchoscopy was done and path results were negative for malignancy and BAL culture grew sudarshan albicans. She was on clindamycin and Levaquin after discharge. Repeat CT during this admission shows decreasing size of cavitary lesion. Patient has been on vancomycin and Zosyn and over the weekend had multiple episodes of hemoptysis after being started on heparin drip for pulmonary embolis robin Underwent bronchoscopy on 12/14/2018 Serum cryptococcal antigens negative sputum cultures preliminary negative, blood cultures negative. Appreciate ID recommendations Currently awaiting results of bronchoscopy, and BAL cultures. discharge depending on BAL culture results which will help determine discharge antibiotics and patient will follow up with pulmonology for repeat CT scan. (3) DVT prophylaxis Current Visit: Yes Status: Acute (4) Hemoptysis Current Visit: Yes Status: Acute Assessment and Plan: Patient did have 5 mL of hemoptysis overnight as seen in the cup. We will continue monitor. Her hemoglobin is stable. (5) Pulmonary embolism Current Visit: Yes Status: Suspected Assessment and Plan: patient had tachycardia and hypoxia and a CTA chest was ordered on Thursday12/10/2018 which showed segmented filling defects of the lingula. Patient was started on heparin drip but started having hemoptysis Pulmonology recommended discontinuing heparin drip as there was no right heart strain on echocardiogram and bilateral Dopplers were negative. DVT Prophylaxis: epcd - Time Spent with Patient Total time spent is greater than 50% in coordination of care (as documented) at patient's floor/unit and/or counseling patient: Internal Medicine: Result - Labs CBC & Chem 7: 12/14/18 03:55 12/14/18 03:55 Labs: Short CBC 12/14/18 Range/Units 03:55 WBC 10.7 (4.3-11.1) K/mcL Hgb 8.7 L (11.5-15.4) g/dL Hct 28.1 L (35.3-44.9) % Plt Count 375 (140-400) K/mcL BMP 12/14/18 03:55 Sodium 141 Potassium 3.9 Chloride 104 Carbon Dioxide 32 H BUN 17 Creatinine 0.61 Glucose 140 H Calcium 8.4 L - ABG Interpretation ABG results: ABG ABG pH 7.45 pH Units (7.32-7.45) 12/14/18 05:24 ABG pCO2 47 mmHg (35-45) H 12/14/18 05:24 ABG pO2 42 mmHg (85-104) L* 12/14/18 05:24 ABG O2 Saturation 79 % (95-98) L 12/14/18 05:24 PT/INR, D-dimer PT 15.1 Seconds (9.4-12.1) H 12/10/18 14:54 Consult Discharge Plan - Plan Referrals: Aren Malik Jr, MD [Primary Care Provider] - <Marilee Thakkar - Last Filed: 12/14/18 21:06> Hospitalist Progress Note - Encounter Date of Encounter: 12/14/18 - Exam Vitals: Temp Pulse Resp BP Pulse Ox 98 F 119 17 144/85 94 12/14/18 19:38 12/14/18 19:38 12/14/18 19:38 12/14/18 19:38 12/14/18 19:38 - Assessment and Plan (1) Acute exacerbation of chronic obstructive airways disease Current Visit: Yes Status: Acute (2) Cavitary pneumonia Current Visit: Yes Status: Acute (3) Diarrhea Current Visit: Yes Status: Acute (4) Pulmonary embolism Current Visit: Yes Status: Suspected (5) Hemoptysis Current Visit: Yes Status: Acute - Time Spent with Patient Total time spent is greater than 50% in coordination of care (as documented) at patient's floor/unit and/or counseling patient: Internal Medicine: Result - Labs CBC & Chem 7: 12/14/18 03:55 12/14/18 03:55 Labs: Short CBC 12/14/18 Range/Units 03:55 WBC 10.7 (4.3-11.1) K/mcL Hgb 8.7 L (11.5-15.4) g/dL Hct 28.1 L (35.3-44.9) % Plt Count 375 (140-400) K/mcL BMP 12/14/18 03:55 Sodium 141 Potassium 3.9 Chloride 104 Carbon Dioxide 32 H BUN 17 Creatinine 0.61 Glucose 140 H Calcium 8.4 L - ABG Interpretation ABG results: ABG ABG pH 7.45 pH Units (7.32-7.45) 12/14/18 05:24 ABG pCO2 47 mmHg (35-45) H 12/14/18 05:24 ABG pO2 42 mmHg (85-104) L* 12/14/18 05:24 ABG O2 Saturation 79 % (95-98) L 12/14/18 05:24 PT/INR, D-dimer PT 15.1 Seconds (9.4-12.1) H 12/10/18 14:54 - Attending Attestation I examined this patient and my medical decision-making was reviewed with the Resident Physician. I agree with the documented findings, disposition and treatment plan as described except to the extent set forth below. <Rashaad Powell - Last Filed: 12/14/18 08:48> (5) Pulmonary embolism Qualifiers: Pulmonary embolism type: unspecified Chronicity: acute Acute cor pulmonale presence: without acute cor pulmonale Qualified Code(s): I26.99 - Other pulmonary embolism without acute cor pulmonale <Marilee Thakkar - Last Filed: 12/14/18 21:06> (4) Pulmonary embolism Qualifiers: Pulmonary embolism type: unspecified Chronicity: acute Acute cor pulmonale presence: without acute cor pulmonale Qualified Code(s): I26.99 - Other pulmonary embolism without acute cor pulmonale
[2018-12-14] MEDS ORDERED: predniSONE 20 MG TABLET PO SCH (09:00)
[2018-12-14] MEDS: Budesonide/Formoterol 160/4.5 1 PUFF INH IH SCH ×2 (11:17→21:55)
[2018-12-14 15:00] LABS: QuantiFERON NIL 0.02 IU/mL; QuantiFERON-TB Gold In-Tube NEGATIVE
--- NOTE | 2018-12-14 17:21 | Pulmonology Progress Note ---
Date of Encounter: 12/14/18 Time of Encounter: 07:10 Assessment and Plan (1) Hemoptysis Current Visit: Yes Status: Acute Patient status post bronchoscopy and she is feeling better after removing mucous plugs and also she feels her hemoptysis has improved some. I will still recommend not to start her on any anticoagulation and she understand that. Inf ectious disease is following up. We will continue follow-up. I am hoping this is resolved and no need for more interventions. (2) Cavitary lesion of lung Current Visit: Yes Status: Chronic Patient had bronch and waiting for cytology, still feel this is infectious in nature and agree with antibiotic. (3) COPD (chronic obstructive pulmonary disease) Current Visit: Yes Status: Chronic Qualifiers: COPD type: unspecified COPD Qualified Code(s): J44.9 - Chronic obstructive pulmonary disease, unspecified Subjective Principal diagnosis: Pneumonia Interval history: She still have hemoptysis, but she feels it is getting better after bronch and she can breath better Objective PUL Vital signs: Last Vital Signs Temp 97.9 F 12/14/18 15:45 Pulse 108 12/14/18 15:45 Resp 19 12/14/18 15:45 BP 136/77 12/14/18 15:45 Pulse Ox 94 12/14/18 15:45 General appearance: no acute distress Eyes: nonicteric Mallampati (class): 2 Neck: supple Effort: normal Auscultation: left: clear, right: rhonchi Percussion: bilateral: not dull Cardiovascular: regular rate and rhythm Gastrointestinal: normoactive bowel sounds, non-distended normal mental status, non-focal exam mood appropriate Results - Laboratory Findings CBC and BMP: 12/14/18 03:55 12/14/18 03:55 ABG ABG pH 7.45 pH Units (7.32-7.45) 12/14/18 05:24 ABG pCO2 47 mmHg (35-45) H 12/14/18 05:24 ABG pO2 42 mmHg (85-104) L* 12/14/18 05:24 ABG O2 Saturation 79 % (95-98) L 12/14/18 05:24 PT/INR, D-dimer PT 15.1 Seconds (9.4-12.1) H 12/10/18 14:54 Abnormal lab findings: Abnormal lab results RBC 2.94 M/mcL (3.82-4.97) L 12/14/18 03:55 Hgb 8.7 g/dL (11.5-15.4) L 12/14/18 03:55 Hct 28.1 % (35.3-44.9) L 12/14/18 03:55 MCHC 31.0 g/dL (31.6-35.5) L 12/14/18 03:55 RDW 14.6 % (11.5-14.5) H 12/14/18 03:55 PT 15.1 Seconds (9.4-12.1) H 12/10/18 14:54 APTT 80.5 Seconds (26.0-36.0) H 12/11/18 00:50 Heparin Anti-Xa, Unfract 0.23 IU/mL (0.30-0.70) L 12/12/18 13:00 ABG pCO2 47 mmHg (35-45) H 12/14/18 05:24 ABG pO2 42 mmHg (85-104) L* 12/14/18 05:24 ABG HCO3 32 mEq/L (21-27) H 12/14/18 05:24 ABG Total CO2 34 mEq/L (20-26) H 12/14/18 05:24 ABG O2 Saturation 79 % (95-98) L 12/14/18 05:24 ABG Base Excess 8 mEq/L (-2 to 3) H 12/14/18 05:24 Carbon Dioxide 32 mEq/L (23-29) H 12/14/18 03:55 BUN/Creatinine Ratio 28 (6-26) H 12/14/18 03:55 Glucose 140 mg/dL (70-105) H 12/14/18 03:55 POC Glucose 116 mg/dL (70-99) H 12/13/18 11:13 Calcium 8.4 mg/dL (8.6-10.3) L 12/14/18 03:55 B-Natriuretic Peptide 292 pg/mL (Less than 100) H 12/09/18 13:50 Urine pH 8.5 pH Units (5.0-8.0) H 12/11/18 12:40 Fluid Appearance Cloudy (Clear) A 12/13/18 09:31 Vancomycin Trough 13 mcg/mL (5-10) H 12/13/18 17:00 B-(1,3)-D-Glucan Intrp POSITIVE (Negative) A 12/11/18 00:50 - Microbiology Findings Microbiology Findings: Microbiology, Last 48 Hours 12/09/18 14:17 Blood Culture - Final Peripheral Venipuncture No growth. Final report. 12/09/18 13:50 Blood Culture - Final Peripheral Venipuncture No growth. Final report. 12/13/18 09:31 Respiratory Culture - Preliminary Right Lower Lobe Lung 12/13/18 09:31 Respiratory Culture - Preliminary Right Lower Lobe Lung 12/11/18 15:50 Sputum Culture - Preliminary Sputum 12/13/18 09:31 Fungal Culture - Preliminary Right Lower Lobe Lung Culture is incubating. 12/13/18 09:31 Fungal Culture - Preliminary Right Lower Lobe Lung Culture is incubating. - Clinical Findings Intake & Output: Intake & Output 12/14/18 12/14/18 12/14/18 07:59 15:59 23:59 Intake Total 350 / 350 840 / 840 Output Total 1100 / 1100 400 / 400 Balance -750 / -750 440 / 440 Consult Discharge Plan - Plan Referrals: Aren Malik Jr, MD [Primary Care Provider] -
[2018-12-14] MEDS: Melatonin 3 MG TABLET PO SCH (20:19)
[2018-12-15] MEDS: Piperacillin/Tazobactam 3.375 GM in 0.9 % Sodium Chloride Mini Bag 100 ML IVPB SCH ×4 (00:32→23:00)
[2018-12-15] MEDS: Ipratropium/Albuterol Neb 3 ML IH SCH ×4 (03:28→21:41)
[2018-12-15] MEDS: Ringers Solution, Lactated 1,000 ML IVC SCH (04:30)
[2018-12-15 04:40] LABS: Basophils % 0.2 %; Eosinophils % 0.2 %; Hematocrit 30.2 % (35.3-44.9); Hemoglobin 9.5 g/dL (11.5-15.4); Lymphocytes # 1.7 K/mcL (0.6-4.6); Lymphocytes % 11.1 %; Mean Corpuscular HGB Conc 31.5 g/dL (31.6-35.5); Mean Corpuscular Hemoglobin 29.4 pg (28.0-33.3); Mean Corpuscular Volume 93.5 fL (83.0-100.0); Monocytes # 1.5 K/mcL (0.0-1.3); Monocytes % 9.6 %; Neutrophils # 11.9 K/mcL (1.6-8.9); Platelet Count 442 K/mcL (140-400); Red Blood Count 3.23 M/mcL (3.82-4.97); Red Cell Distribution Width 14.7 % (11.5-14.5); Segmented Neutrophils % 77.9 %
[2018-12-15 04:58] LABS: BUN/Creatinine Ratio 22 (6-26); Blood Urea Nitrogen 15 mg/dL (8-23); Calcium 9.1 mg/dL (8.6-10.3); Carbon Dioxide 31 mEq/L (23-29); Chloride 103 mEq/L (98-107); Glucose 124 mg/dL (70-105); Osmolality,Calculated 292 (280-300); Potassium 3.2 mEq/L (3.5-5.1); Sodium 140 mEq/L (136-145); eGFR For Non-African Americans > 60 (> 60)
[2018-12-15] MEDS: Multivit/Ca/Min/Fe/FA 1 TAB TABLET PO SCH (08:00)
[2018-12-15] MEDS: Loratadine 10 MG TABLET PO SCH (08:00)
[2018-12-15] MEDS: Famotidine 20 MG TABLET PO SCH ×2 (08:01→20:03)
[2018-12-15] MEDS: Aspirin Enteric Coated 81 MG Tablet PO SCH (08:01)
[2018-12-15] MEDS: Lactobacillus 1 EACH CAP.SPRINK PO SCH (08:01)
[2018-12-15] MEDS ORDERED: Potassium Chloride Elixir 20 MEQ/15 ML UDC PO ONE (08:09)
--- NOTE | 2018-12-15 08:38 | Infectious Disease Progress No ---
ID Progress Note Date of Encounter: 12/15/18 Time of Encounter: 09:52 - Subjective Subjective: No acute events over night. Patient has remained afebrile, tachycardic into the 110s, and using BiPAP or Nasal cannula. She is Vancomycin and Zosyn day #7 of therapy. WBC spiked at 15.7 from 10.7 yesterday. SCr os 0.69 and CrCl is 81 mL/min. Bronchoscopy performed 12/13. Today when I saw the patient, she was sitting comfortably in bed. She is tolerating PO without issue. She is cu rrently on nasal cannula oxygen, which she is tolerating. Since the bronchoscopy, she is coughing up dark blood and green sputum which has improved and lessened. She also states that her diarrhea has improved and lessened in frequency. She denies fevers, chest pain, abdominal pain, dysuria, pain in his extremities. Urine Legionella/ S. pneumoniae: negative; RIP negative; Nasal MRSA negative Blood cultures x2 pending; BAL cultures and analysis pending CTA chest on 12/10 revealed: 1. CT findings of partially occlusive pulmonary emboli in the segmental branches of the lingula as described in body of report. 2. No significant interval change from 12/09/2018 in a right lower lobe cavitary mass. Again diagnostic considerations would include cavitary pneumonia, fungal infection, TB, infected bulla or less likely malignancy. 3. Unchanged trace pericardial effusion. 4. Mild enlargement of the main pulmonary artery, correlate for signs or symptoms of pulmonary hypertension. Sputum culture prelim.: few yeasts, no bacteria observed Serum Cryptococcal antigen: negative Bronchoscopy 12/13 revealed: Mucus plugging, in the airway, found in the Right lower lobe an the left lower lobe. Mucus was notable, mucoid, and thick. Underlying mucosa was inflamed with areas of chronic inflammation evident in the right lower lobe. Fresh blood was found in the superior segment of the right lower lobe and the bleeding site was identified. Thick, mucoid secretions were found throughout the tracheobronchial tree, partially obstructing the airway. BAL was performed in the right lower lobe and sent for the following: cell count, bacterial culture, viral smear/ culture, fungal and AFB analysis and cytology. Sputum Smear: Cell Differential: Neutrophils, 97%; Lymphocytes, 3%; Acute inflammation is present; no microorganisms identified. Correlation with microbiology culture results is suggested. Serum 1,4 [id number] positive 12/15/18 - Objective CBC & Chem 7: 12/15/18 04:20 12/15/18 04:20 - Exam Vitals: Temp Pulse Resp BP Pulse Ox 97.8 F 98 17 146/80 92 12/15/18 07:38 12/15/18 07:38 12/15/18 07:38 12/15/18 07:38 12/15/18 07:38 Exam: Patient is alert, oriented, and cooperative. Heart: RRR Lungs: mild wheezes throughout, appropriate respiratory effort Abdomen: soft, non-tender, bowel sounds present and normal - Assessment and Plan (1) Sepsis Current Visit: No Status: Acute had 2 SIRS criteria on admission Etiology: likely secondary to pulmonary infection (pulmonary cavitary lesion vs. bronchitis) BAL results pending, blood cultures pending Patient still meets sepsis criteria due to increase in WBC, persistent, t achycardia, and potential pulmonary source Recommendations: - Continue antibiotic therapy until microbiology results - Monitor WBC, renal function, vitals for worsening clinical picture Qualifiers: Sepsis type: sepsis due to unspecified organism Qualified Code(s): A41.9 - Sepsis, unspecified organism SNOMED Code(s): 97190108 (2) Cavitary lesion of lung Current Visit: No Status: Acute Etiology: not clear at this time; Bacterial vs. Non-TB Mycobacterium vs Fungal, as well as Malignancy Previous admission: first seen on CT 11/11: 4x6 cm with air fluid level; s/p bronch which was non revealing; AFB negative; Tx with Levofloxacin and Clindam ycin for 3 weeks PPD at [facility] which was negative (per patient) Repeat CT 12/09/2018: The previously noted right lower lobe cavitary mass has slightly decreased in size measuring 3.3 x 6.4 cm, previously measuring 4.0 x 5.9 cm. There is an air-fluid level with a thick nodular rim RIP negative; urine legionella and S. Pneumo negative Nasal MRSA screen (-) Pulmonology following; d/w Dr. Russell Bronchoscopy 12/13/2018: Mucus plugging, in the airway, found in the Right lower lobe an the left lower lobe. Mucus was notable, mucoid, and thick. Underlying mucosa was inflamed with areas of chronic inflammation evident in the right lower lobe. Fresh blood was found in the superior segment of the right lower lobe and the bleeding site was identified. Thick, mucoid secretions were found throughout the tracheobronchial tree, partially obstructing the airway. BAL was performed in the right lower lobe and sent for the following: cell count, bacterial culture, viral smear/ culture, fungal and AFB analysis and cytology. (+) 1,4 beta-d glucan serology could due to multiple etiologies (i.e. fungal, medication), no need to isolation precautions at this time; will correlate with BAL results once complete Recommendations: - Repeat PPD skin test - Wait for BAL, cultures to result - Continue Vancomycin and Zosyn until microbiology results SNOMED Code(s): 709480877 (3) COPD (chronic obstructive pulmonary disease) Current Visit: Yes Status: Chronic Qualifiers: COPD type: unspecified COPD Qualified Code(s): J44.9 - Chronic obstructive pulmonary disease, unspecified SNOMED Code(s): 73782724 (4) Diarrhea Current Visit: Yes Status: Acute SNOMED Code(s): 19546676 (5) Rash Current Visit: Yes Status: Acute maculopapular rash on trunk sparing the face and the extremities mildly pruritic started the Thursday prior to admission not likely due to any antibiotics we gave her here maybe due to levofloxacin? SNOMED Code(s): 791980672 Consult Discharge Plan - Plan Referrals: Aren Malik Jr, MD [Primary Care Provider] - - Attending Attestation Patient seen and examined. Appears comfortable. NAD no chest pain no SOB. No diarrhea, no urinary symptoms Lungs : air sounds audible bilaterally with some diffuse ronchi at the bases CV RRR S1S2 Abdomen: soft NT ND Ext adequate perfusion Neuro intact labs noted imaging noted cultures noted A/P: cavitary lung lesion no etiology identified so far d/w Dr. Russell we think this is a bacterial infection with cavitation patient BAL cultures negative but patient was on antibiotics for a few days prior to bronch will d/c home on doxycycline/augmentin for [address] chest in 28 days follow up with ID and pulmonary as outpatient
[2018-12-15] MEDS ORDERED: predniSONE 10 MG TABLET PO SCH (09:00)
--- NOTE | 2018-12-15 09:24 | Internal Med Progress Note ---
<Rashaad Powell - Last Filed: 12/15/18 11:13> Hospitalist Progress Note - Encounter Date of Encounter: 12/15/18 Time of Encounter: 09:23 - Subjective Interval History: Patient reports improved shortness of breath. She is able to ambulate independently. She is tolerating her diet. She was using 4 L of oxygen the morning. - Exam Vitals: Temp Pulse Resp BP Pulse Ox 97.8 F 98 17 146/80 92 12/15/18 07:38 12/15/18 07:38 12/15/18 07:38 12/15/18 07:38 12/15/18 07:38 Exam: General: pleasant, without distress Cardiovascualr: Regular rate and rhythm with no murmur, absent gallops or rubs, absent pedal edema, radial pulses 2 out of 4 Lungs: clear throughout except for mild crackles in the left lower lobe. not in respiratory distress Abdomen: Soft nontender, nondistended positive bowel sounds, absent hepatomegaly Skin: warm and dry, absent rash, absent open wounds and nodules MSK: absent clubbing, cyanosis, joints without swelling Neuro: Cranial nerves II through XII intact, UE and LE sensation equal bilaterally, UE and LEstrength 5/5, alert oriented 3, Psych: good insight and judgment - Assessment and Plan (1) Acute exacerbation of chronic obstructive airways disease Current Visit: Yes Status: Resolved Assessment and Plan: 2nd to cavitary pneumonia Resolved bronchoscopy found multiple sites of mucus plugging and an area of chronically inflamed mucosa in the right lower lobe. Continue duo nebs, prednisone taper started Did not qualify for BiPAP. repeat O2 qualification (2) Cavitary pneumonia Current Visit: Yes Status: Acute Assessment and Plan: Patient has had a cavitary lung lesion since October 2017 and was evaluated at [facility]. At that time bronchoscopy was done and path results were negative for malignancy and BAL culture grew sudarshan albicans. She was on clindamycin and Levaquin after discharge. Repeat CT during this admission shows decreasing size of cavitary lesion. Patient has been on vancomycin and Zosyn and over the weekend had multiple episodes of hemoptysis after being started on heparin drip for pulmonary embolism. Underwent bronchoscopy on 12/14/2018 Serum cryptococcal antigens negative sputum cultures preliminary negative, blood cultures negative. Currently awaiting results of bronchoscopy, and BAL cultures. follow up with pulmonology for repeat CT scan. (3) DVT prophylaxis Current Visit: Yes Status: Acute Assessment and Plan: Ambulate TID, EPCD's (4) Hemoptysis Current Visit: Yes Status: Acute Assessment and Plan: Resolved. Appreciate pulmonology recommendations. We will avoid any type of anticoagulation. (5) Pulmonary embolism Current Visit: Yes Status: Suspected Assessment and Plan: patient had tachycardia and hypoxia and a CTA chest was ordered on Thursday12/10/2018 which showed segmented filling defects of the lingula. Patient was started on heparin drip but started having hemoptysis Pulmonology recommended discontinuing heparin drip as there was no right heart strain on echocardiogram and bilateral Dopplers were negative. - Time Spent with Patient Total time spent is greater than 50% in coordination of care (as documented) at patient's floor/unit and/or counseling patient: Internal Medicine: Result - Labs CBC & Chem 7: 12/15/18 04:20 12/15/18 04:20 Labs: Short CBC 12/15/18 Range/Units 04:20 WBC 15.3 H (4.3-11.1) K/mcL Hgb 9.5 L (11.5-15.4) g/dL Hct 30.2 L (35.3-44.9) % Plt Count 442 H (140-400) K/mcL Neutrophils # 11.9 H (1.6-8.9) K/mcL BMP 12/15/18 04:20 Sodium 140 Potassium 3.2 L Chloride 103 Carbon Dioxide 31 H BUN 15 Creatinine 0.69 Glucose 124 H Calcium 9.1 - ABG Interpretation ABG results: ABG ABG pH 7.45 pH Units (7.32-7.45) 12/14/18 05:24 ABG pCO2 47 mmHg (35-45) H 12/14/18 05:24 ABG pO2 42 mmHg (85-104) L* 12/14/18 05:24 ABG O2 Saturation 79 % (95-98) L 12/14/18 05:24 PT/INR, D-dimer PT 15.1 Seconds (9.4-12.1) H 12/10/18 14:54 Consult Discharge Plan - Plan Referrals: Aren Malik Jr, MD [Primary Care Provider] - <Esmer Moise - Last Filed: 12/15/18 14:58> Hospitalist Progress Note - Encounter Date of Encounter: 12/15/18 - Exam Vitals: Temp Pulse Resp BP Pulse Ox 98.3 F 100 17 147/82 93 12/15/18 11:53 12/15/18 11:53 12/15/18 11:53 12/15/18 11:53 12/15/18 12:53 - Assessment and Plan (1) Acute exacerbation of chronic obstructive airways disease Current Visit: Yes Status: Resolved (2) Cavitary pneumonia Current Visit: Yes Status: Acute (3) Diarrhea Current Visit: Yes Status: Acute (4) Pulmonary embolism Current Visit: Yes Status: Suspected (5) Hemoptysis Current Visit: Yes Status: Acute - Time Spent with Patient Total time spent is greater than 50% in coordination of care (as documented) at patient's floor/unit and/or counseling patient: Internal Medicine: Result - Labs CBC & Chem 7: 12/15/18 04:20 12/15/18 04:20 Labs: Short CBC 12/15/18 Range/Units 04:20 WBC 15.3 H (4.3-11.1) K/mcL Hgb 9.5 L (11.5-15.4) g/dL Hct 30.2 L (35.3-44.9) % Plt Count 442 H (140-400) K/mcL Neutrophils # 11.9 H (1.6-8.9) K/mcL BMP 12/15/18 04:20 Sodium 140 Potassium 3.2 L Chloride 103 Carbon Dioxide 31 H BUN 15 Creatinine 0.69 Glucose 124 H Calcium 9.1 - ABG Interpretation ABG results: ABG ABG pH 7.45 pH Units (7.32-7.45) 12/14/18 05:24 ABG pCO2 47 mmHg (35-45) H 12/14/18 05:24 ABG pO2 42 mmHg (85-104) L* 12/14/18 05:24 ABG O2 Saturation 79 % (95-98) L 12/14/18 05:24 PT/INR, D-dimer PT 15.1 Seconds (9.4-12.1) H 12/10/18 14:54 - Attending Attestation I examined this patient and my medical decision-making was reviewed with the Re sident Physician Dr Powell. I agree with the documented findings, disposition and treatment plan as described except to the extent set forth below. Ms Peck is admitted with Acute on Chronic resp failure with cavitary lesion thought to be infectious. awake, no sob on current o2 nc. + cough, with sputum, color now wan, no rupa blood, pt shows in tissue. no fevers or chills. no wheezing. gen- alert, awake,appears stated age cv- reg rate and rhythm, normal s1,s2, no murmurs appreciated lungs- ctabl, no wheezing, rhonchi or crackles, normal resp effort on o2 nc abd- soft, non tender, non distended neuro- AAOx3 Acute on Chronic Hypoxic resp failure COPDE 2/2 cavitary lung lesion Suspected pna, though not confirmed and organism uk -cont o2 nc support, qualified for home o2 increase -s/p bronch with specimen studies pending -cont vanc + zosyn awaiting cx results, appreciate ID recs -cont steroids Possible PE on CTA -did not tolerate hep gtt --hemoptysis -as pulm recommended hep gtt dc given no heart strain and hemoptysis Sepsis, 2/2 suspected lung infection -treatment as above Hypokalemia- s/p repletion PO today, cont to follow further diagnoses and plan as noted by resident will dc to home upon discharge with HHC and O2 nc _ <Rashaad Powell - Last Filed: 12/15/18 11:13> (5) Pulmonary embolism Qualifiers: Pulmonary embolism type: unspecified Chronicity: acute Acute cor pulmonale presence: without acute cor pulmonale Qualified Code(s): I26.99 - Other pulmonary embolism without acute cor pulmonale <Esmer Moise - Last Filed: 12/15/18 14:58> (4) Pulmonary embolism Qualifiers: Pulmonary embolism type: unspecified Chronicity: acute Acute cor pulmonale presence: without acute cor pulmonale Qualified Code(s): I26.99 - Other pulmonary embolism without acute cor pulmonale
[2018-12-15] MEDS: Budesonide/Formoterol 160/4.5 1 PUFF INH IH SCH ×2 (10:42→21:41)
--- NOTE | 2018-12-15 17:35 | Pulmonology Progress Note ---
Date of Encounter: 12/16/18 Time of Encounter: 14:00 Assessment and Plan (1) Hemoptysis Status: Resolved Patient status post bronchoscopy and she is feeling better after removing mucous plugs and also she feels her hemoptysis has improved some. I will still recommend not to start her on any anticoagulation and she understand that. Infectious disease is following up. We will continue follow-up. I am hoping this is resolved and no need for more interventions. 12/15 this is getting better and it is becoming more old blood and she is feeling better. Patient stated she wants to go home. Discussed with infectious disease and I have told patient she can follow-up as outpatient after she would have a repeat CT chest preferably pulmonary embolism protocol to make sure there is no evidence of pulmonary embolism. (2) Cavitary lesion of lung Status: Chronic Patient had bronch and waiting for cytology, still feel this is infectious in nature and agree with antibiotic. (3) COPD (chronic obstructive pulmonary disease) Status: Chronic Qualifiers: COPD type: unspecified COPD Qualified Code(s): J44.9 - Chronic obstructive pulmonary disease, unspecified Subjective Principal diagnosis: Pneumonia Interval history: She still have hemoptysis, but she feels it is getting better after bronch and she can breath better Objective PUL Vital signs: Last Vital Signs Temp 97.6 F 12/15/18 16:27 Pulse 99 12/15/18 16:27 Resp 19 12/15/18 16:27 BP 146/87 12/15/18 16:27 Pulse Ox 91 12/15/18 16:27 General appearance: no acute distress Eyes: nonicteric ENT: oropharynx moist Neck: supple Effort: normal Auscultation: bilateral: rhonchi Percussion: bilateral: not dull Cardiovascular: regular rate and rhythm Gastrointestinal: normoactive bowel sounds, non-distended Extremities: no cyanosis, edema normal mental status, non-focal exam mood appropriate Results - Laboratory Findings CBC and BMP: 12/16/18 03:25 12/16/18 03:25 ABG ABG pH 7.45 pH Units (7.32-7.45) 12/14/18 05:24 ABG pCO2 47 mmHg (35-45) H 12/14/18 05:24 ABG pO2 42 mmHg (85-104) L* 12/14/18 05:24 ABG O2 Saturation 79 % (95-98) L 12/14/18 05:24 PT/INR, D-dimer PT 15.1 Seconds (9.4-12.1) H 12/10/18 14:54 Abnormal lab findings: Abnormal lab results WBC 15.3 K/mcL (4.3-11.1) H 12/15/18 04:20 RBC 3.23 M/mcL (3.82-4.97) L 12/15/18 04:20 Hgb 9.5 g/dL (11.5-15.4) L 12/15/18 04:20 Hct 30.2 % (35.3-44.9) L 12/15/18 04:20 MCHC 31.5 g/dL (31.6-35.5) L 12/15/18 04:20 RDW 14.7 % (11.5-14.5) H 12/15/18 04:20 Plt Count 442 K/mcL (140-400) H 12/15/18 04:20 Neutrophils # 11.9 K/mcL (1.6-8.9) H 12/15/18 04:20 Monocytes # 1.5 K/mcL (0.0-1.3) H 12/15/18 04:20 PT 15.1 Seconds (9.4-12.1) H 12/10/18 14:54 APTT 80.5 Seconds (26.0-36.0) H 12/11/18 00:50 Heparin Anti-Xa, Unfract 0.23 IU/mL (0.30-0.70) L 12/12/18 13:00 ABG pCO2 47 mmHg (35-45) H 12/14/18 05:24 ABG pO2 42 mmHg (85-104) L* 12/14/18 05:24 ABG HCO3 32 mEq/L (21-27) H 12/14/18 05:24 ABG Total CO2 34 mEq/L (20-26) H 12/14/18 05:24 ABG O2 Saturation 79 % (95-98) L 12/14/18 05:24 ABG Base Excess 8 mEq/L (-2 to 3) H 12/14/18 05:24 Potassium 3.2 mEq/L (3.5-5.1) L 12/15/18 04:20 Carbon Dioxide 31 mEq/L (23-29) H 12/15/18 04:20 Glucose 124 mg/dL (70-105) H 12/15/18 04:20 POC Glucose 116 mg/dL (70-99) H 12/13/18 11:13 B-Natriuretic Peptide 292 pg/mL (Less than 100) H 12/09/18 13:50 Urine pH 8.5 pH Units (5.0-8.0) H 12/11/18 12:40 Fluid Appearance Cloudy (Clear) A 12/13/18 09:31 Vancomycin Trough 20 mcg/mL (5-10) H 12/15/18 04:20 B-(1,3)-D-Glucan Intrp POSITIVE (Negative) A 12/11/18 00:50 - Microbiology Findings Microbiology Findings: Microbiology, Last 48 Hours 12/13/18 09:31 Respiratory Culture - Final Right Lower Lobe Lung 12/13/18 09:31 Respiratory Culture - Final Right Lower Lobe Lung 12/13/18 09:31 Acid Fast Stain - Final Right Lower Lobe Lung 12/11/18 15:50 Sputum Culture - Final Sputum 12/09/18 14:17 Blood Culture - Final Peripheral Venipuncture No growth. Final report. 12/09/18 13:50 Blood Culture - Final Peripheral Venipuncture No growth. Final report. 12/13/18 09:31 Fungal Culture - Preliminary Right Lower Lobe Lung Culture is incubating. 12/13/18 09:31 Fungal Culture - Preliminary Right Lower Lobe Lung Culture is incubating. - Clinical Findings Intake & Output: Intake & Output 12/15/18 12/15/18 12/15/18 07:59 15:59 23:59 Intake Total 700 / 700 100 / 100 Output Total 500 / 500 500 / 500 Balance 700 / 700 -400 / -400 -500 / -500 Consult Discharge Plan - Plan Referrals: Liliam Russell MD [Partnered Physician] - 12/27/18 1:00 pm () Aren Malik Jr, MD [Primary Care Provider] - (Patient will follow up with Sherry Tomlinson CNP) Sherry Tomlinson CNP [Advanced Practice Nurse] - 12/23/18 10:00 am Neeta Flaherty MD [Partnered Physician] - 01/04/19 10:00 am () Prescriptions: Amoxicillin/Clavulanate [Augmentin] 875 mg PO BIDWM 28 Days #54 tablet RX: Doxycycline 100 mg PO BID 28 Days #54 capsule RX: predniSONE [PredniSONE] 30 mg PO TAPER #30 tablet
[2018-12-15] MEDS: Melatonin 3 MG TABLET PO SCH (20:02)
[2018-12-16 03:36] LABS: Basophils % 0.1 %; Eosinophils % 0.3 %; Hematocrit 27.7 % (35.3-44.9); Hemoglobin 8.7 g/dL (11.5-15.4); Immature Granulocytes % 0.9 % (0-4); Lymphocytes # 1.3 K/mcL (0.6-4.6); Lymphocytes % 9.9 %; Mean Corpuscular HGB Conc 31.4 g/dL (31.6-35.5); Mean Corpuscular Hemoglobin 29.4 pg (28.0-33.3); Mean Corpuscular Volume 93.6 fL (83.0-100.0); Mean Platelet Volume 9.8 fL (9.4-12.4); Monocytes # 1.2 K/mcL (0.0-1.3); Monocytes % 9.4 %; Platelet Count 414 K/mcL (140-400); Red Blood Count 2.96 M/mcL (3.82-4.97); Segmented Neutrophils % 79.4 %
[2018-12-16 03:57] LABS: BUN/Creatinine Ratio 25 (6-26); Blood Urea Nitrogen 16 mg/dL (8-23); Calcium 8.8 mg/dL (8.6-10.3); Carbon Dioxide 30 mEq/L (23-29); Chloride 105 mEq/L (98-107); Glucose 130 mg/dL (70-105); Osmolality,Calculated 297 (280-300); Potassium 3.4 mEq/L (3.5-5.1); Sodium 142 mEq/L (136-145); eGFR For Non-African Americans > 60 (> 60)
[2018-12-16] MEDS: Ipratropium/Albuterol Neb 3 ML IH SCH ×2 (04:24→09:48)
--- NOTE | 2018-12-16 07:12 | Physician Discharge Referral ---
<Rashaad Powell - Last Filed: 12/16/18 09:29> Home Health/Hosp Referral Info Transfer to: Home Health Attending Provider: Dr. Moise Provider in Charge Post Discharge: PCP - Diagnosis (1) Acute exacerbation of chronic obstructive airways disease Priority: Primary Status: Resolved (2) Cavitary pneumonia Priority: Secondary Status: Acute (3) DVT prophylaxis Priority: Secondary Status: Acute (4) Hemoptysis Priority: Secondary Status: Resolved (5) Pulmonary embolism Priority: Secondary Status: Suspected - Respiratory Orders Oxygen / L per min (4L) Smoking Cessation: Smoking cessation has been advised. For more information, call the [place] Tobacco Quit Line at 7-914-DQYA-NOW. - Diet/Nutrition Diet/Nutrition Orders: Cardiac - Activity Activity Orders: Ambulate (as per physical theraphy) - Services Needed Following services are medically necessary services: Nursing, Home Health Aide, Physical Therapy, Occupational Therapy, Med Social Work - Transfer Medications Prescriptions: Amoxicillin/Clavulanate [Augmentin] 875 mg PO BIDWM 28 Days #54 tablet Doxycycline 100 mg PO BID 28 Days #54 capsule predniSONE [PredniSONE] 30 mg PO TAPER #30 tablet Home Medications: Citalopram [CeleXA] 20 mg PO DAILY 02/05/16 [History] Loratadine [Claritin] 10 mg PO DAILY 02/05/16 [History] Lovastatin [Mevacor] 40 mg PO HS 02/05/16 [History] Metoprolol [Lopressor] 25 mg PO BID 02/05/16 [History] Nitroglycerin [Nitrostat] 0.4 mg SL Q5M PRN 02/05/16 [History] Albuterol Sulfate [Albuterol Inhaler] 2 puff IH Q4HR PRN #2 hfa.aer.ad 02/08/16 [Rx] Roflumilast [Daliresp] 500 mcg PO DAILY 11/11/18 [History] Aspirin [Lo-Dose Aspirin EC] 81 mg PO DAILY 11/12/18 [History] Budesonide/Formoterol 160/4.5 [Symbicort 160/4.5] 2 puff IH BIDR 11/12/18 [History] L. Acidophilus/Pectin, [place] [Acidophilus Probiotic Capsule] 1 cap PO DAILY 11/12/18 [History] Multivitamin [One Daily] 1 tab PO DAILY 11/12/18 [History] Umeclidinium [place] [Incruse Ellipta] 2 puff IH DAILY 11/12/18 [History] raNITIdine HCl [Zantac] 150 mg PO BID 11/12/18 [History] GuaiFENesin ER [Mucinex] 600 mg PO BID PRN 30 Days #60 tbbp.12hr 11/19/18 [Rx] Menthol [Cough Drops] 9.1 mg PO Q2H PRN #0 lozenge 11/19/18 [Rx] Ipratropium/Albuterol Neb [Duoneb] 3 ml IH Q4HR PRN 12/09/18 [History] Melatonin 6 mg PO HS 12/09/18 [History] Amoxicillin/Clavulanate [Augmentin] 875 mg PO BIDWM 28 Days #54 tablet 12/16/18 [Rx] Doxycycline 100 mg PO BID 28 Days #54 capsule 12/16/18 [Rx] predniSONE [PredniSONE] 30 mg PO TAPER #30 tablet 12/16/18 [Rx] Allergies/Adverse Reactions: Allergy/AdvReac Type Severity Reaction Status Date / Time clarithromycin [From Biaxin] Allergy Gastrointestinal Verified 07/01/18 12:50 Upset codeine AdvReac See Verified 07/01/18 12:50 Comments lansoprazole [From Prevacid] AdvReac ulcer Verified 07/01/18 12:50 lisinopril AdvReac Cough Verified 07/01/18 12:50 meloxicam [From Mobic] AdvReac ulcer Verified 07/01/18 12:50 opium (anthroposophic) AdvReac nausea/vomi Verified 07/01/18 12:50 [Opium (Anthroposophic)] ting Certification: Further, I certify that my clinical findings support that this patient is homebound (i.e. absences from home require considerable and taxing effort and ar e for medical reasons or roman catholic services or infrequently or short duration when for other reasons) because: Homebound Reason: Patient requires assistance of a person or device to safely leave home Attestation: My signature below is to certify that this patient is under my care and that I, or nurse practitioner, or a physician's volunteer assistant working with me, has a [id number] encounter with this patient. <Esmer Moise - Last Filed: 12/16/18 16:02> - Diagnosis (1) Acute exacerbation of chronic obstructive airways disease Status: Resolved (2) Cavitary pneumonia Status: Acute (3) Diarrhea Status: Acute (4) Pulmonary embolism Status: Suspected (5) Hemoptysis Status: Resolved - Respiratory Orders Smoking Cessation: Smoking cessation has been advised. For more information, call the [employer] Tobacco Quit Line at 0-590-UNHB-NOW. Certification: Further, I certify that my clinical findings support that this patient is homebound (i.e. absences from home require considerable and taxing effort and are for medical reasons or roman catholic services or infrequently or short duration when for other reasons) because: Homebound Reason: Patient requires assistance of a person or device to safely leave home, Leaving home requires considerable and taxing effort due to condition Attestation: My signature below is to certify that this patient is under my care and that I, or nurse practitioner, or a physician's volunteer assistant working with me, has a [id number] encounter with this patient.
--- NOTE | 2018-12-16 07:12 | Discharge Summary ---
<Rashaad Powell - Last Filed: 12/16/18 09:10> - NOTES TO OUTPATIENT PROVIDER Notes to Outpatient Provider: Patient has CTA chest ordered that she will need in one month. Orders not resulted at time of discharge: Pending orders 12/13/18 09:31 AFB Culture, Respiratory [TB] Routine AFB Smear [TB] Routine Fungal Culture [MYC] Routine Fungal Culture [MYC] Routine Date of Encounter: 12/16/18 Time of Encounter: 09:10 - Discharge Diagnosis (1) Acute exacerbation of chronic obstructive airways disease Priority: Primary Status: Resolved (2) Cavitary pneumonia Priority: Secondary Status: Acute (3) DVT prophylaxis Priority: Secondary Status: Acute (4) Hemoptysis Priority: Secondary Status: Resolved (5) Pulmonary embolism Priority: Secondary Status: Suspected Qualifiers: Pulmonary embolism type: unspecified Chronicity: acute Acute cor pulmonale presence: without acute cor pulmonale Qualified Code(s): I26.99 - Other pulmonary embolism without acute cor pulmonale Hospital course: Ms. Peck is a 73 year old female presented with chief complaint of shortness of breath. Patient had a history of cavitary lung lesion which was worked up and [facility] during her previous admission on November 11. At that time bronchoscopy results were negative. She was discharged on clindamycin and Levaquin. She was discharged to [facility]. Patient reported that at the [facility] she had a PPD test which was negative. Furthermore during her stay at the [facility] many other residents had a upper respiratory infection. Patient was discharged from the [facility] and was home for a couple days and was developing worsening shortness of breath, diarrhea and a rash on her chest and back. She called her PCP who told her to stop the clindamycin. Thereafter she presented to the emergency department on 12/17. Her repeat CT scan showed a decrease in the right lower lobe cavitary mass and improving right lower lobe airspace disease. Patient had negative C. difficile toxin screen. Patient did not meet SIRS criteria on admission. She was saturating at pain & 6 L oxygen. Infectious disease and pulmonology was consulted. Patient was started on broad- spectrum antibiotics. Patient continued to have shortness of breath and tachycardia and underwent CTA chest which showed findings of partially occlusive PE in the segmental branches. Patient was started on heparin drip. She underwent echocardiogram which showed LVEF of 55% with mild concentric left ventricular hypertrophy, indeterminant diastolic function, moderately dilated right ventricle with mild right ventricular hypokinesis. Her venous Dopplers in the lower x-rays were bilaterally negative. Next day she did have hemoptysis. Pulmonology reviewed the CT scan and noted that this is less likely a PE and heparin was stopped. She underwent bronchoscopy on 12/13 which showed mucous plugging's and chronically inflamed mucosa in the right lower lobe. Patient's blood cultures, sputum cultures, BAL cultures, BAL acid fast stain, fungal antigens were all negative. Her hemoptysis has resolved. Her symptoms of shortness of breath did improve with antibiotics, steroids and DuoNeb's. Patient did not qualify for BiPAP. She had repeat oxygen qualification and will need 4 L of oxygen at rest and 5 L with exertion. Patient's rash resolved once clindamycin was discontinued. Patient will be on Augmentin and doxycycline for total of 28 days. She will have a repeat CTA chest for the right lung cavity lesion and lumbar embolism. Discharge discussed with: patient, family - Time Spent with Patient Total time spent providing and/or coordinating discharge services: - Discharge Medications Prescriptions: New Amoxicillin/Clavulanate [Augmentin] 875 mg PO BIDWM 28 Days #54 tablet Doxycycline 100 mg PO BID 28 Days #54 capsule predniSONE [PredniSONE] 30 mg PO TAPER #30 tablet Continue Loratadine [Claritin] 10 mg PO DAILY Citalopram [CeleXA] 20 mg PO DAILY Metoprolol [Lopressor] 25 mg PO BID Lovastatin [Mevacor] 40 mg PO HS Nitroglycerin [Nitrostat] 0.4 mg SL Q5M PRN PRN Reason: Chest Pain Albuterol Sulfate [Albuterol Inhaler] 2 puff IH Q4HR PRN #2 hfa.aer.ad PRN Reason: Shortness Of Breath/Wheezing Roflumilast [Daliresp] 500 mcg PO DAILY Budesonide/Formoterol 160/4.5 [Symbicort 160/4.5] 2 puff IH BIDR L. Acidophilus/Pectin, [place] [Acidophilus Probiotic Capsule] 1 cap PO DAILY raNITIdine HCl [Zantac] 150 mg PO BID Umeclidinium [place] [Incruse Ellipta] 2 puff IH DAILY Multivitamin [One Daily] 1 tab PO DAILY Aspirin [Lo-Dose Aspirin EC] 81 mg PO DAILY GuaiFENesin ER [Mucinex] 600 mg PO BID PRN 30 Days #60 tbbp.12hr PRN Reason: Cough Menthol [Cough Drops] 9.1 mg PO Q2H PRN #0 lozenge PRN Reason: Cough Ipratropium/Albuterol Neb [Duoneb] 3 ml IH Q4HR PRN PRN Reason: Cough Melatonin 6 mg PO HS Home Medications: Citalopram [CeleXA] 20 mg PO DAILY 02/05/16 [History] Loratadine [Claritin] 10 mg PO DAILY 02/05/16 [History] Lovastatin [Mevacor] 40 mg PO HS 02/05/16 [History] Metoprolol [Lopressor] 25 mg PO BID 02/05/16 [History] Nitroglycerin [Nitrostat] 0.4 mg SL Q5M PRN 02/05/16 [History] Albuterol Sulfate [Albuterol Inhaler] 2 puff IH Q4HR PRN #2 hfa.aer.ad 02/08/16 [Rx] Roflumilast [Daliresp] 500 mcg PO DAILY 11/11/18 [History] Aspirin [Lo-Dose Aspirin EC] 81 mg PO DAILY 11/12/18 [History] Budesonide/Formoterol 160/4.5 [Symbicort 160/4.5] 2 puff IH BIDR 11/12/18 [History] L. Acidophilus/Pectin, [place] [Acidophilus Probiotic Capsule] 1 cap PO DAILY 11/12/18 [History] Multivitamin [One Daily] 1 tab PO DAILY 11/12/18 [History] Umeclidinium [place] [Incruse Ellipta] 2 puff IH DAILY 11/12/18 [History] raNITIdine HCl [Zantac] 150 mg PO BID 11/12/18 [History] GuaiFENesin ER [Mucinex] 600 mg PO BID PRN 30 Days #60 tbbp.12hr 11/19/18 [Rx] Menthol [Cough Drops] 9.1 mg PO Q2H PRN #0 lozenge 11/19/18 [Rx] Ipratropium/Albuterol Neb [Duoneb] 3 ml IH Q4HR PRN 12/09/18 [History] Melatonin 6 mg PO HS 12/09/18 [History] Amoxicillin/Clavulanate [Augmentin] 875 mg PO BIDWM 28 Days #54 tablet 12/16/18 [Rx] Doxycycline 100 mg PO BID 28 Days #54 capsule 12/16/18 [Rx] predniSONE [PredniSONE] 30 mg PO TAPER #30 tablet 12/16/18 [Rx] Allergies/Adverse Reactions: Allergy/AdvReac Type Severity Reaction Status Date / Time clarithromycin [From Biaxin] Allergy Gastrointestinal Verified 07/01/18 12:50 Upset codeine AdvReac See Verified 07/01/18 12:50 Comments lansoprazole [From Prevacid] AdvReac ulcer Verified 07/01/18 12:50 lisinopril AdvReac Cough Verified 07/01/18 12:50 meloxicam [From Mobic] AdvReac ulcer Verified 07/01/18 12:50 opium (anthroposophic) AdvReac nausea/vomi Verified 07/01/18 12:50 [Opium (Anthroposophic)] ting Date of admission: 12/11/18 16:16 Primary care physician: Aren Malik Jr, MD Consults: 12/09/18 18:15 Consult to Infectious Diseases [CONS] Routine Consulting Provider: Infectious Disease Muriel Reason for Consult: cavitary lung lesion Call Completed: No 12/10/18 09:28 Consult to Nurse Navigator [CONS] Routine Comment: pn 12/12/18 10:35 Consult to Pulmonology [CONS] Stat Consulting Provider: Pulm Crit Care & Sleep Muriel Reason for Consult: hemoptysis, on heparin drip for PE; known cavitary lung lesion Call Completed: Yes 12/13/18 10:40 Consult to Occupational Therapy [CONS] Routine Comment: Evaluate, develop and implement POC Reason for Consult: pysical deconditioning Does patient have active BEDREST order?: No Is patient medically & hemodynamically stable?: Yes Consult to Physical Therapy [CONS] Routine Comment: Evaluate, develop and implement POC Reason for Consult: phsyical deconditioning Does patient have active BEDREST order?: No Is patient medically & hemodynamically stable?: Yes Discharging clinician: Rashaad Powell Anticipated date of discharge: 12/16/18 - Constitutional Vitals: Temp Pulse Resp BP Pulse Ox 98.2 F 87 18 141/76 94 12/16/18 04:21 12/16/18 04:21 12/16/18 04:24 12/16/18 04:21 12/16/18 04:24 Exam: General: pleasant, without distress Cardiovascualr: Regular rate and rhythm with no murmur, absent gallops or rubs, absent pedal edema, radial pulses 2 out of 4 Lungs: clear throughout except for mild crackles in the left lower lobe. not in respiratory distress Abdomen: Soft nontender, nondistended positive bowel sounds, absent hepatomegaly Skin: warm and dry, absent rash, absent open wounds and nodules MSK: absent clubbing, cyanosis, joints without swelling Neuro: Cranial nerves II through XII intact, UE and LE sensation equal bilaterally, UE and LEstrength 5/5, alert oriented 3, Psych: good insight and judgment - Patient Status Disposition: Home Health Service Condition: Fair - Ambulatory Orders Ambulatory Orders: CT angio chest [CT] Time Frame: 1 Month, Facility: [facility], Location: Radiology - Discharge Instructions Follow Up With: Liliam Russell MD [Partnered Physician] - 12/27/18 1:00 pm () Aren Malik Jr, MD [Primary Care Provider] - (Patient will follow up with Sherry Tomlinson CNP) Sherry Tomlinson CNP [Advanced Practice Nurse] - 12/23/18 10:00 am Neeta Flaherty MD [Partnered Physician] - 01/04/19 10:00 am () - Diet and Activity Activity: as per physical therapy, increase activity as tolerated Diet: low fat, low cholesterol, low salt diet <Esmer Moise - Last Filed: 12/16/18 16:01> Orders not resulted at time of discharge: Pending orders 12/13/18 09:31 AFB Culture, Respiratory [TB] Routine AFB Smear [TB] Routine Fungal Culture [MYC] Routine Fungal Culture [MYC] Routine Date of Encounter: 12/16/18 - Discharge Diagnosis (1) Acute exacerbation of chronic obstructive airways disease Status: Resolved (2) Cavitary pneumonia Status: Acute (3) Diarrhea Status: Acute (4) Pulmonary embolism Status: Suspected Qualifiers: Pulmonary embolism type: unspecified Chronicity: acute Acute cor pulmonale presence: without acute cor pulmonale Qualified Code(s): I26.99 - Other pulmonary embolism without acute cor pulmonale (5) Hemoptysis Status: Resolved Hospital course: Ms. Peck is a 73 year old female - Time Spent with Patient Total time spent providing and/or coordinating discharge services: Time spent: Greater than 30 minutes (40 min) Date of admission: 12/11/18 16:16 Primary care physician: Aren Malik Jr, MD Consults: 12/09/18 18:15 Consult to Infectious Diseases [CONS] Routine Consulting Provider: Infectious Disease Muriel Reason for Consult: cavitary lung lesion Call Completed: No 12/10/18 09:28 Consult to Nurse Navigator [CONS] Routine Comment: pn 12/12/18 10:35 Consult to Pulmonology [CONS] Stat Consulting Provider: Pulm Crit Care & Sleep Muriel Reason for Consult: hemoptysis, on heparin drip for PE; known cavitary lung lesion Call Completed: Yes 12/13/18 10:40 Consult to Occupational Therapy [CONS] Routine Comment: Evaluate, develop and implement POC Reason for Consult: pysical deconditioning Does patient have active BEDREST order?: No Is patient medically & hemodynamically stable?: Yes Consult to Physical Therapy [CONS] Routine Comment: Evaluate, develop and implement POC Reason for Consult: phsyical deconditioning Does patient have active BEDREST order?: No Is patient medically & hemodynamically stable?: Yes - Constitutional Vitals: Temp Pulse Resp BP Pulse Ox 98.2 F 104 18 129/76 94 12/16/18 10:24 12/16/18 10:24 12/16/18 10:24 12/16/18 10:24 12/16/18 10:24 - Patient Status Overall status at discharge: patient is progressing back to baseline - Attending Attestation I examined this patient and my medical decision-making was reviewed with the Resident Physician Dr Powell. I agree with the documented findings, disposition and treatment plan as described except to the extent set forth below. Ms Peck is admitted with Acute on Chronic resp failure with cavitary lesion thought to be infectious. She was ollowed by Pulm and ID while admitted and will see both as an outpt. She is discharging to home with HHC and home o2 increased, as well as one month of oral abx treatment. She is in stable condition for dc. awake, sob cont to improve daily. no hemoptysis. wan creamy sputum last 24 hrs. no fevers, chills, n/v, wheezing. She is anxiously awaiting dc to home. Discharge plan discussed in detail and she has no questions. gen- alert, awake,appears stated age cv- reg rate and rhythm, normal s1,s2, no murmurs appreciated, no le edema lungs- ctabl, no wheezing, rhonchi or crackles, normal resp effort on o2 nc abd- soft, non tender, non distended, + bs neuro- AAOx3 Acute on Chronic Hypoxic resp failure COPDE 2/2 cavitary lung lesion Suspected pna, though not confirmed and organism uk -cont o2 nc support, qualified for home o2 increase -s/p bronch with specimen studies thus far negative -was vanc + zosyn , appreciate ID recs-- augmentin + doxy to complete 30 day course -cont steroids taper -ID and pulm outpt fu Possible PE on CTA -did not tolerate hep gtt --hemoptysis -as pulm recommended hep gtt dc given no heart strain and hemoptysis and less likely that findings were actually PE Sepsis, 2/2 suspected lung infection, resolved with this mornings VS check, remains afebrile, wbc cont to down trend now 12.6 (with tapering of steroids) -treatment as above Hypokalemia- s/p repletion PO today further diagnoses and plan as noted by resident will dc to home with HHC and O2 nc time spent on dc 40 min
[2018-12-16] MEDS: Famotidine 20 MG TABLET PO SCH (08:36)
[2018-12-16] MEDS: Lactobacillus 1 EACH CAP.SPRINK PO SCH (08:36)
[2018-12-16] MEDS: Loratadine 10 MG TABLET PO SCH (08:36)
[2018-12-16] MEDS: Multivit/Ca/Min/Fe/FA 1 TAB TABLET PO SCH (08:36)
[2018-12-16] MEDS: Aspirin Enteric Coated 81 MG Tablet PO SCH (08:36)
[2018-12-16] MEDS: Piperacillin/Tazobactam 3.375 GM in 0.9 % Sodium Chloride Mini Bag 100 ML IVPB SCH (08:37)
[2018-12-16] MEDS ORDERED: predniSONE 10 MG TABLET PO SCH (09:00)
[2018-12-16] MEDS ORDERED: Potassium Chloride Elixir 20 MEQ/15 ML UDC PO ONE (09:22)
[2018-12-16] MEDS: Budesonide/Formoterol 160/4.5 1 PUFF INH IH SCH (09:49)
[2018-12-16 10:31] VITALS: BP 129/76
[2018-12-20] MEDS ORDERED: predniSONE 20 MG TABLET PO SCH (09:00)
== END 2018-12-16 13:08 | disposition home health service (06) | DRG 871 ==
LOC: 2ANU 13:42 → EMEROOARM 13:42 → SUATTDRO 17:06 → 2ANU 18:30 → SUATTDRO 12-11 16:16 → 2ANU 12-13 12:48
PROVIDERS: ADMIT Hospitalist; ATTEND Internal Medicine

== ENCOUNTER 2018-12-24 05:41 | Inpatient (IN) ==
[2018-12-24] MEDS ORDERED: 0.9 % Sodium Chloride 1,000 ML IVC ONE (05:47)
[2018-12-24] MEDS ORDERED: methylPREDNISolone 125 MG/2 ML VIAL IVP ONE (05:47)
[2018-12-24] MEDS ORDERED: Ipratropium/Albuterol Neb 3 ML IH ONE (05:48)
--- NOTE | 2018-12-24 06:17 | Emergency Department Note ---
Disposition Clinical Impression: Hospital-acquired pneumonia Disposition: Admitted As Inpatient Condition: Fair Referrals: Aren Malik Jr, MD [Primary Care Provider] - Forms: ED Satisfaction Letter Time of Disposition: 07:14 SOB HPI - General Chief Complaint: ED Shortness of Breath/Dyspnea Stated Complaint: Silvia Time Seen by Provider: 12/24/18 05:47 Source: patient, EMS Mode of arrival: EMS Limitations: no limitations Nursing Notes Reviewed: Yes Vital Signs Reviewed: Yes - History of Present Illness 73-year-old female presents to the emergency department complaining of difficulty in breathing. Patient was recently admitted to the hospital sent home on the of this month to an ECF as she was started on 5 L of oxygen sent home with doxycycline and clindamycin to be done for 20 days. Patient is found to have a pneumonia as well as cavitary lesion. Patient states that tonight she started becoming more short of breath or heart time catching her breath so she called for help and they noticed that she did have normal saturations around is really working of breathing suicide to bring her in. There is no noted fevers she does note any chills she does not have any hemoptysis. Patient otherwise has no other complaints at this time. She does say she has some mild chest pressure but no actual chest pain. - Related Data Home Medications Medication Instructions Recorded Confirmed Citalopram [CeleXA] 20 mg PO DAILY 02/05/16 12/09/18 Loratadine [Claritin] 10 mg PO DAILY 02/05/16 12/09/18 Lovastatin [Mevacor] 40 mg PO HS 02/05/16 12/09/18 Metoprolol [Lopressor] 25 mg PO BID 02/05/16 12/09/18 Nitroglycerin [Nitrostat] 0.4 mg SL Q5M PRN 02/05/16 12/09/18 Roflumilast [Daliresp] 500 mcg PO DAILY 11/11/18 12/09/18 Aspirin [Lo-Dose Aspirin EC] 81 mg PO DAILY 11/12/18 12/09/18 Budesonide/Formoterol 160/4.5 2 puff IH BIDR 11/12/18 12/09/18 [Symbicort 160/4.5] L. Acidophilus/Pectin, [place] 1 cap PO DAILY 11/12/18 12/09/18 [Acidophilus Probiotic Capsule] Multivitamin [One Daily] 1 tab PO DAILY 11/12/18 12/09/[address] [place] [Incruse 2 puff IH DAILY 11/12/18 12/09/18 Ellipta] raNITIdine HCl [Zantac] 150 mg PO BID 11/12/18 12/09/18 Ipratropium/Albuterol Neb [Duoneb] 3 ml IH Q4HR PRN 12/09/18 12/09/18 Melatonin 6 mg PO HS 12/09/18 12/09/18 Previous Rx's Medication Instructions Recorded Albuterol Sulfate [Albuterol 2 puff IH Q4HR PRN #2 hfa.aer.ad 02/08/16 Inhaler] Menthol [Cough Drops] 9.1 mg PO Q2H PRN #0 lozenge 11/19/18 Amoxicillin/Clavulanate [Augmentin] 875 mg PO BIDWM 28 Days #54 tablet 12/16/18 Doxycycline 100 mg PO BID 28 Days #54 capsule 12/16/18 predniSONE [PredniSONE] 30 mg PO TAPER #30 tablet 12/16/18 Allergies Allergy/AdvReac Type Severity Reaction Status Date / Time clarithromycin [From Biaxin] Allergy Gastrointestinal Verified 07/01/18 12:50 Upset codeine AdvReac See Verified 07/01/18 12:50 Comments lansoprazole [From Prevacid] AdvReac ulcer Verified 07/01/18 12:50 lisinopril AdvReac Cough Verified 07/01/18 12:50 meloxicam [From Mobic] AdvReac ulcer Verified 07/01/18 12:50 opium (anthroposophic) AdvReac nausea/vomi Verified 07/01/18 12:50 [Opium (Anthroposophic)] ting All systems ED: reviewed and negative except as stated. Review of Systems: As Per HPI Past Medical History - Past Medical History Attestation: Yes The following information was validated with the patient. Source: patient Medical history: Reports: COPD, hypertension Surgical history: Reports: angioplasty/stent, breast surgery, cholecystectomy, hysterectomy, orthopedic, other, other Psychiatric history: Reports: anxiety - Social History Smoking Status: Former smoker Smokeless Tobacco Status: No Alcohol use: Reports: none Drug use: Reports: none Physical Exam - General Limitations: no limitations General appearance: alert, in no apparent distress - Head Head exam: atraumatic, normocephalic, normal inspection - Eye Eye exam: Present: normal appearance, PERRL, EOMI - ENT ENT exam: normal exam, normal oropharynx, mucous membranes moist - Neck Neck exam: Present: normal inspection, full ROM, trachea midline - Chest Chest inspection: Present: normal inspection, symmetric chest wall rise - Respiratory Respiratory exam: Present: normal lung sounds bilaterally, wheezes (With rhonchi mainly heard in the right base), accessory muscle use. Absent: respiratory distress - Cardiovascular Cardiovascular exam: Present: regular rate, normal rhythm, normal heart sounds - Abdominal Exam Abdominal exam: Present: soft, Non-Tender, normal bowel sounds. Absent: tenderness, distention, guarding, rebound, rigidity - Extremities Exam Extremities exam: Present: normal inspection, full ROM. Absent: tenderness, pedal edema - Back Exam Back exam: Present: normal inspection, full ROM. Absent: tenderness - Neurological Exam Neurological exam: Present: alert, oriented X3 - Skin Skin exam: Present: warm, dry, intact, normal color Course Course Narrative: We will get CBC, BMP, BNP, troponin chest x-ray as well as blood cultures. We will give patient Solu-Medrol, triple DuoNeb treatment and change her from a nonrebreather that she came on EMS to 5 L via nasal cannula. Well-seated lactate. He does not have a fever but is to give neck and tachycardic. We will get lactate. We will not give patient a [place] 30 mL/kg right now as patient does have susceptibility be fluid overloaded. We will discuss her 1 L fluids at this time. Vital Signs Temperature 99.1 F 12/24/18 05:56 Pulse Rate 118 12/24/18 05:56 Respiratory Rate 32 12/24/18 05:56 Blood Pressure 143/79 12/24/18 05:56 O2 Sat by Pulse Oximetry 95 12/24/18 05:56 Temperature 99.1 F 12/24/18 05:56 Pulse Rate 118 12/24/18 05:56 Respiratory Rate 24 12/24/18 06:01 Blood Pressure 143/79 12/24/18 05:56 O2 Sat by Pulse Oximetry 96 12/24/18 06:01 Oxygen Delivery Oxygen Delivery Nasal Cannula Shortness of Breath/Dyspnea - MDM Narrative Medical decision making narrative: 73-year-old female presents here for shortness of breath. She was on nonrebreather we did change her to 5 L via nasal cannula to keep her saturations around 90-93%. Patient did receive triple DuoNeb treatment as well as steroids. She also had a chest x-ray and labs done chest x-ray did show bibasilar pneumonia. Patient did have a leukocytosis I did not give patient full 30 molar liters per kilogram bolus of IV fluids as well as I want to fluid overload her. I chose to start patient on hospital acquired pneumonia antibiotics including think, Zosyn, Levaquin. She did have an elevated troponin 0.04 this could be due to recent pneumonia we will trended there is no EKG changes. Patient was okay with getting admitted. I spoke with the hospitalist who agreed to admit the patient to their service. Patient Patient admitted in stable condition. Chest X-Ray 12/24/18 05:47 IMPRESSION: Bibasilar atelectasis and/or pneumonia. D/ / Burke Uribe MD / Burke Uribe MD Interpreting Provider: Burke Uribe MD - Medical Records Medical records reviewed: Yes I reviewed the patient's medical records. - Lab Data Lab results reviewed: Yes I reviewed the patient's lab results. Result diagrams: 12/24/18 06:15 12/24/18 06:15 Lab Results 12/24/18 12/24/18 12/24/18 Range/Units 06:15 06:15 06:15 WBC 14.9 H (4.3-11.1) K/mcL RBC 3.27 L (3.82-4.97) M/mcL Hgb 9.6 L (11.5-15.4) g/dL Hct 30.9 L (35.3-44.9) % MCV 94.5 (83.0-100.0) fL MCH 29.4 (28.0-33.3) pg MCHC 31.1 L (31.6-35.5) g/dL RDW 15.4 H (11.5-14.5) % Plt Count 446 H (140-400) K/mcL MPV 10.7 (9.4-12.4) fL Immature Gran % 0.8 (0-4) % Seg Neutrophils % 79.9 % Lymphocytes % 9.7 % Monocytes % 8.9 % Eosinophils % 0.5 % Basophils % 0.2 % Neutrophils # 11.9 H (1.6-8.9) K/mcL Lymphocytes # 1.4 (0.6-4.6) K/mcL Monocytes # 1.3 (0.0-1.3) K/mcL Eosinophils # 0.1 (0.0-0.6) K/mcL Basophils # 0.0 (0.0-0.2) K/mcL Sodium 138 (136-145) mEq/L Potassium 3.9 (3.5-5.1) mEq/L Chloride 98 (98-107) mEq/L Carbon Dioxide 29 (23-29) mEq/L BUN 22 (8-23) mg/dL Creatinine 0.67 (0.60-1.20) mg/dL Est GFR ( Amer) > 60 (> 60) Est GFR (Non-Af Amer) > 60 (> 60) BUN/Creatinine Ratio 33 H (6-26) Glucose 120 H (70-105) mg/dL Calculated Osmolality 291 (280-300) Lactic Acid 0.9 (0.5-2.2) mmol/L Calcium 9.9 (8.6-10.3) mg/dL Troponin I 0.04 H* (< 0.04) ng/mL - Radiology Data Radiology results reviewed: Yes I reviewed the patient's radiology results. - EKG Data EKG attestation: Yes I reviewed and interpreted this EKG. EKG results narrative: EKG done at 0 554 review myself and the attending shows sinus tachycardia rate of 110, para 143, QRS 90, QTC 445. There is no acute ST changes no acute T-wave changes no other signs of ischemia. She was understanding later. No hypertrophy, heart strain, heart block. No WPW/Brugada/HOCM. EKG is unchanged when compared with old one done 12/09/18
[2018-12-24 06:35] LABS: Basophils % 0.2 %; Eosinophils # 0.1 K/mcL (0.0-0.6); Eosinophils % 0.5 %; Hematocrit 30.9 % (35.3-44.9); Hemoglobin 9.6 g/dL (11.5-15.4); Immature Granulocytes % 0.8 % (0-4); Lymphocytes # 1.4 K/mcL (0.6-4.6); Lymphocytes % 9.7 %; Mean Corpuscular HGB Conc 31.1 g/dL (31.6-35.5); Mean Corpuscular Hemoglobin 29.4 pg (28.0-33.3); Mean Corpuscular Volume 94.5 fL (83.0-100.0); Mean Platelet Volume 10.7 fL (9.4-12.4); Monocytes # 1.3 K/mcL (0.0-1.3); Monocytes % 8.9 %; Neutrophils # 11.9 K/mcL (1.6-8.9); Platelet Count 446 K/mcL (140-400); Red Blood Count 3.27 M/mcL (3.82-4.97); Red Cell Distribution Width 15.4 % (11.5-14.5); Segmented Neutrophils % 79.9 %
[2018-12-24] MEDS ORDERED: Levofloxacin 750 MG/150 ML 750 MG/150 ML BAG IVPB ONE (06:52)
[2018-12-24] MEDS ORDERED: Piperacillin/Tazobactam 3.375 GM in 0.9 % Sodium Chloride Mini Bag 100 ML IVPB ONE (06:52)
--- NOTE | 2018-12-24 06:52 | Emergency Department Note ---
Disposition Clinical Impression: Hospital-acquired pneumonia Disposition: Admitted As Inpatient Condition: Fair Referrals: Aren Malik Jr, MD [Primary Care Provider] - Forms: ED Satisfaction Letter General Adult HPI - General Chief complaint: ED Shortness of Breath/Dyspnea Stated complaint: Silvia Time Seen by Provider: 12/24/18 05:47 Source: patient, EMS Mode of arrival: EMS Limitations: no limitations Nursing Notes Reviewed: Yes Vital Signs Reviewed: Yes - History of Present Illness Pain Scale: 2 - Related Data Home Medications Medication Instructions Recorded Confirmed Citalopram [CeleXA] 20 mg PO DAILY 02/05/16 12/09/18 Loratadine [Claritin] 10 mg PO DAILY 02/05/16 12/09/18 Lovastatin [Mevacor] 40 mg PO HS 02/05/16 12/09/18 Metoprolol [Lopressor] 25 mg PO BID 02/05/16 12/09/18 Nitroglycerin [Nitrostat] 0.4 mg SL Q5M PRN 02/05/16 12/09/18 Roflumilast [Daliresp] 500 mcg PO DAILY 11/11/18 12/09/18 Aspirin [Lo-Dose Aspirin EC] 81 mg PO DAILY 11/12/18 12/09/18 Budesonide/Formoterol 160/4.5 2 puff IH BIDR 11/12/18 12/09/18 [Symbicort 160/4.5] L. Acidophilus/Pectin, [place] 1 cap PO DAILY 11/12/18 12/09/18 [Acidophilus Probiotic Capsule] Multivitamin [One Daily] 1 tab PO DAILY 11/12/18 12/09/18 Umeclidinium [place] [Incruse 2 puff IH DAILY 11/12/18 12/09/18 Ellipta] raNITIdine HCl [Zantac] 150 mg PO BID 11/12/18 12/09/18 Ipratropium/Albuterol Neb [Duoneb] 3 ml IH Q4HR PRN 12/09/18 12/09/18 Melatonin 6 mg PO HS 12/09/18 12/09/18 Previous Rx's Medication Instructions Recorded Albuterol Sulfate [Albuterol 2 puff IH Q4HR PRN #2 hfa.aer.ad 02/08/16 Inhaler] Menthol [Cough Drops] 9.1 mg PO Q2H PRN #0 lozenge 11/19/18 Amoxicillin/Clavulanate [Augmentin] 875 mg PO BIDWM 28 Days #54 tablet 12/16/18 Doxycycline 100 mg PO BID 28 Days #54 capsule 12/16/18 predniSONE [PredniSONE] 30 mg PO TAPER #30 tablet 12/16/18 Allergies Allergy/AdvReac Type Severity Reaction Status Date / Time clarithromycin [From Biaxin] Allergy Gastrointestinal Verified 07/01/18 12:50 Upset codeine AdvReac See Verified 07/01/18 12:50 Comments lansoprazole [From Prevacid] AdvReac ulcer Verified 07/01/18 12:50 lisinopril AdvReac Cough Verified 07/01/18 12:50 meloxicam [From Mobic] AdvReac ulcer Verified 07/01/18 12:50 opium (anthroposophic) AdvReac nausea/vomi Verified 07/01/18 12:50 [Opium (Anthroposophic)] ting Past Medical History - Past Medical History Medical history: Reports: COPD, hypertension Surgical history: Reports: angioplasty/stent, breast surgery, cholecystectomy, hysterectomy, orthopedic, other, other Psychiatric history: Reports: anxiety - Social History Smoking Status: Former smoker Smokeless Tobacco Status: No Alcohol use: Reports: none Drug use: Reports: none Physical Exam - General Limitations: no limitations General appearance: alert, in no apparent distress Course Vital Signs Temperature 99.1 F 12/24/18 05:56 Pulse Rate 118 12/24/18 05:56 Respiratory Rate 32 12/24/18 05:56 Blood Pressure 143/79 12/24/18 05:56 O2 Sat by Pulse Oximetry 95 12/24/18 05:56 Temperature 99.1 F 12/24/18 05:56 Pulse Rate 118 12/24/18 05:56 Respiratory Rate 24 12/24/18 06:01 Blood Pressure 143/79 12/24/18 05:56 O2 Sat by Pulse Oximetry 96 12/24/18 06:01 Oxygen Delivery Oxygen Delivery Nasal Cannula Medical Decision Making - Medical Records Medical records reviewed: Yes I reviewed the patient's medical records. - Lab Data Lab results reviewed: Yes I reviewed the patient's lab results. Result diagrams: 12/24/18 06:15 12/24/18 06:15 Lab Results 12/24/18 12/24/18 12/24/18 Range/Units 06:15 06:15 06:15 WBC 14.9 H (4.3-11.1) K/mcL RBC 3.27 L (3.82-4.97) M/mcL Hgb 9.6 L (11.5-15.4) g/dL Hct 30.9 L (35.3-44.9) % MCV 94.5 (83.0-100.0) fL MCH 29.4 (28.0-33.3) pg MCHC 31.1 L (31.6-35.5) g/dL RDW 15.4 H (11.5-14.5) % Plt Count 446 H (140-400) K/mcL MPV 10.7 (9.4-12.4) fL Immature Gran % 0.8 (0-4) % Seg Neutrophils % 79.9 % Lymphocytes % 9.7 % Monocytes % 8.9 % Eosinophils % 0.5 % Basophils % 0.2 % Neutrophils # 11.9 H (1.6-8.9) K/mcL Lymphocytes # 1.4 (0.6-4.6) K/mcL Monocytes # 1.3 (0.0-1.3) K/mcL Eosinophils # 0.1 (0.0-0.6) K/mcL Basophils # 0.0 (0.0-0.2) K/mcL Sodium 138 (136-145) mEq/L Potassium 3.9 (3.5-5.1) mEq/L Chloride 98 (98-107) mEq/L Carbon Dioxide 29 (23-29) mEq/L BUN 22 (8-23) mg/dL Creatinine 0.67 (0.60-1.20) mg/dL Est GFR ( Amer) > 60 (> 60) Est GFR (Non-Af Amer) > 60 (> 60) BUN/Creatinine Ratio 33 H (6-26) Glucose 120 H (70-105) mg/dL Calculated Osmolality 291 (280-300) Lactic Acid 0.9 (0.5-2.2) mmol/L Calcium 9.9 (8.6-10.3) mg/dL Troponin I 0.04 H* (< 0.04) ng/mL B-Natriuretic Peptide (Less than 100) pg/mL 12/24/18 Range/Units 06:15 WBC (4.3-11.1) K/mcL RBC (3.82-4.97) M/mcL Hgb (11.5-15.4) g/dL Hct (35.3-44.9) % MCV (83.0-100.0) fL MCH (28.0-33.3) pg MCHC (31.6-35.5) g/dL RDW (11.5-14.5) % Plt Count (140-400) K/mcL MPV (9.4-12.4) fL Immature Gran % (0-4) % Seg Neutrophils % % Lymphocytes % % Monocytes % % Eosinophils % % Basophils % % Neutrophils # (1.6-8.9) K/mcL Lymphocytes # (0.6-4.6) K/mcL Monocytes # (0.0-1.3) K/mcL Eosinophils # (0.0-0.6) K/mcL Basophils # (0.0-0.2) K/mcL Sodium (136-145) mEq/L Potassium (3.5-5.1) mEq/L Chloride (98-107) mEq/L Carbon Dioxide (23-29) mEq/L BUN (8-23) mg/dL Creatinine (0.60-1.20) mg/dL Est GFR ( Amer) (> 60) Est GFR (Non-Af Amer) (> 60) BUN/Creatinine Ratio (6-26) Glucose (70-105) mg/dL Calculated Osmolality (280-300) Lactic Acid (0.5-2.2) mmol/L Calcium (8.6-10.3) mg/dL Troponin I (< 0.04) ng/mL B-Natriuretic Peptide 1307 H (Less than 100) pg/mL - Radiology Data Radiology results reviewed: Yes I reviewed the patient's radiology results. Chest X-Ray 12/24/18 05:47 IMPRESSION: Bibasilar atelectasis and/or pneumonia. D/ / Burke Uribe MD / Burke Uribe MD Interpreting Provider: Burke Uribe MD - EKG Data EKG #1 EKG attestation: Yes I reviewed and interpreted this EKG. EKG results narrative: EKG showed sinus tachycardia with ventricular rate of 110. No acute ST segment elevation or depression. No ectopy. No significant change from prior EKG dated 12/09/2018. Attestation Statement - Attestation Attestation: I, Daniel Rodriguez MD, personally evaluated this patient and discussed their management with the resident physician. I reviewed the resident's note and agree with the documented findings, medical decision making, and plan of care. 73-year-old female presents to the emergency department by EMS with a complaint of increasing shortness of breath over the past few days, acutely worse tonight. She did have some chills yesterday but no definite fever. Some mild chest pain with coughing. Patient was just recently in the hospital with pneumonia. Patient is currently on doxycycline and clindamycin. There has been some thick greenish yellow sputum. On examination patient is a well-developed well-nourished elderly female in mild respiratory distress. She is alert and oriented 3. There is no cyanosis or diaphoresis. Breath sounds are decreased bilaterally with some right basilar rales and decreased breath sounds in the right base. Heart regular with a mild tachycardia. Abdomen is soft and nontender with normal bowel sounds. No pedal edema. Chest x-ray shows bibasilar atelectasis and/or pneumonia. EKG shows sinus tachycardia with no acute changes. Labs reviewed. The hospitalist was consulted and accepted admission of the patient.
[2018-12-24 07:06] LABS: BUN/Creatinine Ratio 33 (6-26); Blood Urea Nitrogen 22 mg/dL (8-23); Calcium 9.9 mg/dL (8.6-10.3); Carbon Dioxide 29 mEq/L (23-29); Chloride 98 mEq/L (98-107); Glucose 120 mg/dL (70-105); Osmolality,Calculated 291 (280-300); Potassium 3.9 mEq/L (3.5-5.1); Sodium 138 mEq/L (136-145); Troponin I 0.04 ng/mL (< 0.04); eGFR For Non-African Americans > 60 (> 60)
[2018-12-24] MEDS ORDERED: Naloxone 0.4 MG/ML INJ IVP PRN (07:13)
[2018-12-24] MEDS ORDERED: Isovue-370 500 ML BOTTLE IVP ONE ×2 (07:21→07:42)
--- NOTE | 2018-12-24 07:41 | Internal Med History&Physical ---
Date of Encounter: 12/24/18 Time of Encounter: 07:00 Internal Medicine - H&P: HPI Chief complaint: Shortness of breath this am History of present illness: Ms. Peck is a 73 year old female with omh of COPD on 5L oxygen at home, hypertension dyslipidemia presenting with complaints of coughing and severe shortness of breath. Patient was recently in the hospital for a pneumonia with a cavitary lesion where she got a brnochoscopy done by pulmonary, with path results showing only acute inflammation. She was discharged on a course of augmentin and doxycycline for 28 days. says she has remained short of breath since she left the hospital and barely moves around the house. She woke him up at 4am with severe coughing and struggling to breathe. Denies any chest pain, fevers. Admits to chills. In the ER, a chest xray was done showing bibasilar disease and small bilateral effusions. She is tachypneic and breathing with accessory muscles. She was started on vanc, zosyn and levaquin and she is being admitted for further management Past Med Surg Social Fam HX - Past Medical History Medical history: COPD, hypertension Additional medical history: mitral valve prolapse Psychiatric history: anxiety - Past Surgical History Surgical History: angioplasty/stent, breast surgery, cholecystectomy, hystere ctomy, orthopedic, other, other Additional surgical history: left breast. back surgery. EGD. 2 heart stents. - Social History Smoking Status: Former smoker Smokeless Tobacco Status: No Alcohol use: none Drug use: none - Family History Brother Living Status: Hx Family Cardiac Disorders: Yes Mother Living Status: Hx Family Cardiac Disorders: Yes ("artery disease", CHF) Hx Family GI Disorders: Yes (ulcers) Hx Family Endocrine Disorder: Yes Father Living Status: Hx Family Cardiac Disorders: Yes ("valve problems") Internal Medicine - H&P: Meds Citalopram [CeleXA] 20 mg PO DAILY 02/05/16 [History] Loratadine [Claritin] 10 mg PO DAILY 02/05/16 [History] Lovastatin [Mevacor] 40 mg PO HS 02/05/16 [History] Metoprolol [Lopressor] 25 mg PO BID 02/05/16 [History] Nitroglycerin [Nitrostat] 0.4 mg SL Q5M PRN 02/05/16 [History] Albuterol Sulfate [Albuterol Inhaler] 2 puff IH Q4HR PRN #2 hfa.aer.ad 02/08/16 [Rx] Roflumilast [Daliresp] 500 mcg PO DAILY 11/11/18 [History] Aspirin [Lo-Dose Aspirin EC] 81 mg PO DAILY 11/12/18 [History] Budesonide/Formoterol 160/4.5 [Symbicort 160/4.5] 2 puff IH BIDR 11/12/18 [History] L. Acidophilus/Pectin, [place] [Acidophilus Probiotic Capsule] 1 cap PO DAILY 11/12/18 [History] Multivitamin [One Daily] 1 tab PO DAILY 11/12/18 [History] Umeclidinium [place] [Incruse Ellipta] 2 puff IH DAILY 11/12/18 [History] raNITIdine HCl [Zantac] 150 mg PO BID 11/12/18 [History] Menthol [Cough Drops] 9.1 mg PO Q2H PRN #0 lozenge 11/19/18 [Rx] Ipratropium/Albuterol Neb [Duoneb] 3 ml IH Q4HR PRN 12/09/18 [History] Melatonin 6 mg PO HS 12/09/18 [History] Amoxicillin/Clavulanate [Augmentin] 875 mg PO BIDWM 28 Days #54 tablet 12/16/18 [Rx] Doxycycline 100 mg PO BID 28 Days #54 capsule 12/16/18 [Rx] predniSONE [PredniSONE] 30 mg PO TAPER #30 tablet 12/16/18 [Rx] Allergy/AdvReac Type Severity Reaction Status Date / Time clarithromycin [From Biaxin] Allergy Gastrointestinal Verified 07/01/18 12:50 Upset codeine AdvReac See Verified 07/01/18 12:50 Comments lansoprazole [From Prevacid] AdvReac ulcer Verified 07/01/18 12:50 lisinopril AdvReac Cough Verified 07/01/18 12:50 meloxicam [From Mobic] AdvReac ulcer Verified 07/01/18 12:50 opium (anthroposophic) AdvReac nausea/vomi Verified 07/01/18 12:50 [Opium (Anthroposophic)] ting All Systems PM: A 10-system review of systems was performed and is negative for pertinent findings except as documented above in the HPI. - Constitutional Constitutional: no chills, no fever(s), no night sweats - EENT Eyes: no change in vision, no discharge, no pain, no photophobia Ears: no ear discharge, no ear pain, no tinnitus Nose, mouth and throat: no dysphagia, no nasal discharge, no neck pain, no sore throat - Cardiovascular Cardiovascular ROS IM: dyspnea, dyspnea on exertion, no chest pain, no diaphoresis, no lightheadedness, no palpitations, no syncope - Respiratory Respiratory: cough, dyspnea, no wheezing, no excessive phlegm production - Gastrointestinal Gastrointestinal: no abdominal pain, no diarrhea, no hematemesis, no hematoche zenia, no melena, no nausea, no vomiting - Genitourinary Genitourinary: no change in urinary stream, no dysuria, no flank pain, no hematuria - Musculoskeletal Musculoskeletal ROS IM: no numbness, no tingling - Integumentary Integumentary IM: no rash, no unusual bruising - Neurological Neurological ROS: no confusion, no convulsions, no focal weakness, no numbness, no tingling, no tremor(s) - Hematologic/Lymphatic Hematologic/Lymphatic: no easy bruising - Constitutional Vitals: Temp Pulse Resp BP Pulse Ox 99.1 F 118 24 143/79 96 12/24/18 05:56 12/24/18 05:56 12/24/18 06:01 12/24/18 05:56 12/24/18 06:01 Exam: Pt is in moderate respiratory distress, breathing with accessory muscles - Head Head exam: Present: atraumatic, normocephalic - Eye Eye exam: Present: PERRL, conjuntiva pink, sclera anicteric Pupils: Present: PERRL - Neck Neck exam general surgery: Present: supple, trachea midline. Absent: lymphadenopathy - Respiratory Respiratory exam: Present: decreased breath sounds. Absent: accessory muscle use, rales, rhonchi, wheezes - Cardiovascular Cardiovascular exam: Present: RRR, +S1, +S2. Absent: diastolic murmur, gallop, rubs, systolic murmur - GI/Abdominal GI/Abdominal exam: Present: normal bowel sounds, soft, no peritoneal signs. Absent: distended, tenderness - Extremities Exam Extremities exam: Present: warm, radial pulses palpable and symmetrical. Absent: calf tenderness, cyanotic, pedal edema - Neurological Exam Neurological exam: Present: CN II-XII intact, oriented X3, no focal deficits. Absent: pronater drift, facial droop, speech deficit - Skin Skin exam: Present: dry, intact Internal Med - H&P Results - Labs CBC & Chem 7: 12/24/18 06:15 12/24/18 06:15 Labs: Short CBC 12/24/18 Range/Units 06:15 WBC 14.9 H (4.3-11.1) K/mcL Hgb 9.6 L (11.5-15.4) g/dL Hct 30.9 L (35.3-44.9) % Plt Count 446 H (140-400) K/mcL Neutrophils # 11.9 H (1.6-8.9) K/mcL BMP 12/24/18 06:15 Sodium 138 Potassium 3.9 Chloride 98 Carbon Dioxide 29 BUN 22 Creatinine 0.67 Glucose 120 H Calcium 9.9 Cardiac Enzymes 12/24/18 Range/Units 06:15 Troponin I 0.04 H* (< 0.04) ng/mL - Impressions ITS Impressions Chest X-Ray 12/24/18 05:47 IMPRESSION: Bibasilar atelectasis and/or pneumonia. D/ / Burke Uribe MD / Burke Uribe MD Interpreting Provider: Burke Uribe MD - Assessment and Plan (1) Acute and chronic respiratory failure with hypoxia Current Visit: No Status: Acute Assessment and plan: Pt comes in with worsening shortness or breath with productive cough likley secondary to hospital acquired pneumonia and COPD exacerbation CXR shows bibasilar pneumonia. WIll start on broad spectrum antibiotics with vanc , zosyn and levaquin Obtain blood cultures, CTA chest to assess progress of cavitary lesion. s/p bronch earlier in November showing acute inflammation Obtain ABG. Place on BIPAP, nebs and steroids Palliative care for alf goals of care (2) Hospital-acquired pneumonia Current Visit: Yes Status: Acute Assessment and plan: Pt comes in with worsening shortness or breath with productive cough likley secondary to hospital acquired pneumonia and COPD exacerbation CXR shows bibasilar pneumonia. WIll start on broad spectrum antibiotics with vanc , zosyn and levaquin OBtain blood cultures, CTA chest to assess progress of cavitary lesion. s/p bronch earlier in November showing acute inflammation (3) Cavitary lesion of lung Current Visit: Yes Status: Acute Assessment and plan: See #1. Repeat CT chest (4) COPD (chronic obstructive pulmonary disease) with emphysema Current Visit: Yes Status: Acute Assessment and plan: COPD with acute exacerbation. On BIPAP, nebs, steroids and antibiotics Qualifiers: Qualified Code(s): J43.9 - Emphysema, unspecified (5) Hypertension Current Visit: Yes Status: Acute Assessment and plan: Resume home meds Qualifiers: Hypertension type: essential hypertension Qualified Code(s): I10 - Essential (primary) hypertension (6) Elevated troponin Current Visit: Yes Status: Acute Assessment and plan: Likely demand. No acute intervention (7) DVT prophylaxis Current Visit: Yes Status: Acute Assessment and plan: Heparin sc - Time Spent With Patient Total time spent is greater than 50% in coordination of care (as documented) at patient's floor/unit and/or counseling patient:
[2018-12-24 07:48] LABS: Magnesium 1.3 mg/dL (1.6-2.6); Phosphorous 2.7 mg/dL (2.7-4.5)
[2018-12-24 07:53] LABS: Bilirubin,Urine Negative (Negative); Blood,Urine Moderate (Negative); Clarity,Urine Clear (Clear); Color,Urine Yellow (Yellow); Glucose,Urine (UA) Normal (Normal); Ketones,Urine Negative (Negative); Leukocyte Esterase,Urine Trace (Negative); Nitrite,Urine Negative (Negative); Protein,Urine Trace mg/dL (Neg-Trace); Specific Gravity,Urine 1.014 (1.010-1.025); Urobilinogen,Urine Normal (Normal)
[2018-12-24 07:57] LABS: Bacteria,Urine None Seen per hpf (None-Few); Hyaline Casts,Urine None Seen per lpf (None-Few); Squamous Epithelial Cell,Urine Many per lpf (None-Few)
[2018-12-24] MEDS ORDERED: Ipratropium/Albuterol Neb 3 ML IH SCH (08:00)
[2018-12-24] MEDS: Budesonide/Formoterol 160/4.5 1 PUFF INH IH SCH ×2 (08:40→19:57)
[2018-12-24] MEDS: Levalbuterol Neb 1.25 MG/3 ML IH SCH ×3 (08:40→19:57)
--- NOTE | 2018-12-24 08:59 | Pulmonology Consult Note ---
Date of Encounter: 12/24/18 Time of Encounter: 08:59 Assessment and Plan (1) Acute and chronic respiratory failure with hypoxia Current Visit: No Status: Acute In conclusion this is a very pleasant 73-year-old woman who suffers from advanced COPD and chronic respiratory failure she presents with acute on chronic respiratory failure secondary to what appears to be COPD exacerbation complicated by decompensated heart failure with preserved ejection fraction. She suffers from a chronic right lower lobe cavitary lesion thought to be infectious although malignancy is never been fully excluded she has had multiple admissions for similar presentations. At last admission there was an equivocal diagnoses of pulmonary embolus Recs: -Continue BiPAP to ease work of breathing Ms. Peck has responded well to noninvasive ventilation in the past this can be de-escalated to nasal cannula as clinically able would keep nothing by mouth while dependent on BiPAP -Agree with empiric broad-spectrum antibiotic context for hospital associated pathogens pending blood sputum and urine culture urine should also be sent for urine strep and Legionella antigens -Following magnesium replacement recommend IV loop diuretic Lasix 40 mg Gold at -1-1.5 L over the next day -Agree with IV Solu-Medrol 60 mg twice a day however dosing -Schedule duo nebs every 4 hours with every hour albuterol as needed -Symbicort 160/4.52 puffs twice a day -At this point I believe that COPD exacerbation and heart failure likely the reason that she is presenting with respiratory failure on embolus cannot be fully excluded it would be reasonable if worsening hypoxia or clinical deterioration to his inpatient for CT angiogram but at this point I do not believe that it is absolutely necessary and would expose her to a potential risk of a nephrotoxic agent -Inpatient DVT prophylaxis unless contraindication arises -Based upon clinical course could consider reconsultation of infectious disease for antimicrobial recommendations Pulmonary will continue to follow closely (2) Acute diastolic heart failure with preserved ejection fraction Current Visit: Yes Status: Acute (3) Acute exacerbation of chronic obstructive airways disease Current Visit: No Status: Acute (4) Cavitary pneumonia Current Visit: No Status: Acute (5) Pulmonary embolism Current Visit: No Status: Suspected Qualifiers: Pulmonary embolism type: unspecified Chronicity: acute Acute cor pulmonale presence: without acute cor pulmonale Qualified Code(s): I26.99 - Other pulmonary embolism without acute cor pulmonale History of Present Illness Consult date: 12/24/18 Requesting physician: Wander Lima Reason for consult: hypoxemia Chief complaint: Difficulty in Breathing History of present illness: This is a very pleasant 73-year-old woman well known to the pulmonary service right see her in the outpatient pulmonary clinic for advanced COPD and chronic respiratory failure. She presented today for worsening shortness of breath unfortunately she she had multiple hospitalizations over last 2 months for similar presentation. She endorses some chills but no fever and modest chest pain with cough also productive of thick greenish yellow sputum she denies any hemoptysis or chest x-ray performed showed bibasilar atelectasis with possible pneumonia labs were notable for white count of 14.9 chronic anemia metabolic panel was essentially unremarkable and a BNP that was greater than 1400 and troponin was 0.04 she was started on vancomycin and piperacillin tazobactam along with Levaquin for concern for pneumonia with recent hospitalization she was also given Solu-Medrol also started on BiPAP for increased work of breathing upon her is consulted for further evaluation and multiple hospitalizations and respiratory failure. Patient is known to have a right lower lobe cavitary lesion on the last 2 hospitalizations and has undergone bronchoscopy 2 which is negative for any infectious process and cytology was negative for malignancy consensus from pulmonary division as well as infectious diseases at this visit bacterial infection with cavitation she was discharged home in last hospitalization on doxycycline and Augmentin to complete a one-month course with repeat chest x-ray following. On last admission she did have some hemoptysis and the possibility of a segmental/sub segmental pulmonary embolus and was on anticoagulation which had to be interrupted. Past Med Surg Social Fam HX - Past Medical History Medical history: COPD, hypertension Additional medical history: mitral valve prolapse Psychiatric history: anxiety - Past Surgical History Surgical History: angioplasty/stent, breast surgery, cholecystectomy, hysterectomy, orthopedic, other, other Additional surgical history: left breast. back surgery. EGD. 2 heart stents. - Social History Smoking Status: Former smoker Smokeless Tobacco Status: No Alcohol use: none Drug use: none - Family History Brother Living Status: Hx Family Cardiac Disorders: Yes Mother Living Status: Hx Family Cardiac Disorders: Yes ("artery disease", CHF) Hx Family GI Disorders: Yes (ulcers) Hx Family Endocrine Disorder: Yes Father Living Status: Hx Family Cardiac Disorders: Yes ("valve problems") Medications and Allergies Citalopram [CeleXA] 20 mg PO DAILY 02/05/16 [History] Loratadine [Claritin] 10 mg PO DAILY 02/05/16 [History] Lovastatin [Mevacor] 40 mg PO HS 02/05/16 [History] Metoprolol [Lopressor] 25 mg PO BID 02/05/16 [History] Nitroglycerin [Nitrostat] 0.4 mg SL Q5M PRN 02/05/16 [History] Albuterol Sulfate [Albuterol Inhaler] 2 puff IH Q4HR PRN #2 hfa.aer.ad 02/08/16 [Rx] Roflumilast [Daliresp] 500 mcg PO DAILY 11/11/18 [History] Aspirin [Lo-Dose Aspirin EC] 81 mg PO DAILY 11/12/18 [History] Budesonide/Formoterol 160/4.5 [Symbicort 160/4.5] 2 puff IH BIDR 11/12/18 [History] L. Acidophilus/Pectin, [place] [Acidophilus Probiotic Capsule] 1 cap PO DAILY 11/12/18 [History] Multivitamin [One Daily] 1 tab PO DAILY 11/12/18 [History] Umeclidinium [place] [Incruse Ellipta] 2 puff IH DAILY 11/12/18 [History] raNITIdine HCl [Zantac] 150 mg PO BID 11/12/18 [History] Menthol [Cough Drops] 9.1 mg PO Q2H PRN #0 lozenge 11/19/18 [Rx] Ipratropium/Albuterol Neb [Duoneb] 3 ml IH Q4HR PRN 12/09/18 [History] Melatonin 6 mg PO HS 12/09/18 [History] Amoxicillin/Clavulanate [Augmentin] 875 mg PO BIDWM 28 Days #54 tablet 12/16/18 [Rx] Doxycycline 100 mg PO BID 28 Days #54 capsule 12/16/18 [Rx] predniSONE [PredniSONE] 30 mg PO TAPER #30 tablet 12/16/18 [Rx] Allergy/AdvReac Type Severity Reaction Status Date / Time clarithromycin [From Biaxin] Allergy Gastrointestinal Verified 07/01/18 12:50 Upset codeine AdvReac See Verified 07/01/18 12:50 Comments lansoprazole [From Prevacid] AdvReac ulcer Verified 07/01/18 12:50 lisinopril AdvReac Cough Verified 07/01/18 12:50 meloxicam [From Mobic] AdvReac ulcer Verified 07/01/18 12:50 opium (anthroposophic) AdvReac nausea/vomi Verified 07/01/18 12:50 [Opium (Anthroposophic)] ting All Systems: The remainder of the systems were reviewed and are negative Physical Examination Vital Signs: Vital Signs, Last 4 Hours Temp Pulse Resp BP Pulse Ox 12/24/18 08:25 28 127/77 12/24/18 07:43 124 40 127/77 86 12/24/18 06:01 24 96 12/24/18 05:56 99.1 F 118 32 143/79 95 General appearance: other (Patient is resting in bed with BiPAP she is in no acute distress) Eyes: nonicteric Neck: JVD Effort: mildly labored Auscultation: bilateral: diminished breath sounds, rales Cardiovascular: other (rapid rate no murmur ) Gastrointestinal: normoactive bowel sounds, soft, non-tender Integumentary: normal Extremities: pink and warm, pulses normal, edema (b/l Pitting edema ) Musculoskeletal: no deformities normal mental status, non-focal exam mood appropriate Results - Laboratory Findings CBC and BMP: 12/24/18 06:15 12/24/18 06:15 Abnormal lab findings: Abnormal lab results WBC 14.9 K/mcL (4.3-11.1) H 12/24/18 06:15 RBC 3.27 M/mcL (3.82-4.97) L 12/24/18 06:15 Hgb 9.6 g/dL (11.5-15.4) L 12/24/18 06:15 Hct 30.9 % (35.3-44.9) L 12/24/18 06:15 MCHC 31.1 g/dL (31.6-35.5) L 12/24/18 06:15 RDW 15.4 % (11.5-14.5) H 12/24/18 06:15 Plt Count 446 K/mcL (140-400) H 12/24/18 06:15 Neutrophils # 11.9 K/mcL (1.6-8.9) H 12/24/18 06:15 BUN/Creatinine Ratio 33 (6-26) H 12/24/18 06:15 Glucose 120 mg/dL (70-105) H 12/24/18 06:15 Magnesium 1.3 mg/dL (1.6-2.6) L 12/24/18 06:15 Troponin I 0.04 ng/mL (< 0.04) H* 12/24/18 06:15 B-Natriuretic Peptide 1307 pg/mL (Less than 100) H 12/24/18 06:15 Urine Blood Moderate (Negative) H 12/24/18 07:40 Ur Leukocyte Esterase Trace (Negative) H 12/24/18 07:40 Urine Microscopic RBC 3-5 per hpf (0-3) H 12/24/18 07:40 Urine Microscopic WBC 3-5 per hpf (0-3) H 12/24/18 07:40 Ur Squamous Epith Cells Many per lpf (None-Few) H 12/24/18 07:40 Ur Culture Indicated? NO. (NO) A 12/24/18 07:40 - Microbiology Findings Microbiology Findings: Microbiology, Last 48 Hours 12/24/18 06:15 Blood Culture - Preliminary Peripheral Venipuncture Culture is incubating and being continuously monitored for growth. Final report to follow. 12/24/18 06:27 Blood Culture - Preliminary Peripheral Venipuncture Culture is incubating and being continuously monito red for growth. Final report to follow. - Diagnostic Findings Chest x-ray: report reviewed, image reviewed - Clinical Findings Intake & Output: Intake & Output 12/23/18 12/24/18 12/24/18 23:59 07:59 15:59 Weight 73.845 kg Consult Discharge Plan - Plan Referrals: Aren Malik Jr, MD [Primary Care Provider] -
[2018-12-24 09:07] LABS: ABG Base Excess 4 mEq/L (-2 to 3); ABG HCO3 28 mEq/L (21-27); ABG Oxygen Saturation 95 % (95-98); ABG PCO2 39 mmHg (35-45); ABG PH 7.46 pH Units (7.32-7.45); ABG PO2 73 mmHg (85-104); ABG TCO2 29 mEq/L (20-26)
[2018-12-24] MEDS ORDERED: Furosemide 40 MG/4 ML VIAL IVP ONE (09:28)
[2018-12-24] MEDS: Aspirin Enteric Coated 81 MG Tablet PO SCH (09:50)
[2018-12-24 13:04] LABS: Adenovirus Not Detected (Not Detect); Bordetella Pertussis Not Detected (Not Detect); Chlamydophila pneumoniae Not Detected (Not Detect); Coronavirus 229E Not Detected (Not Detect); Coronavirus HKU1 Not Detected (Not Detect); Coronavirus NL63 Not Detected (Not Detect); Coronavirus OC43 Not Detected (Not Detect); Human Metapneumovirus Not Detected (Not Detect); Human Rhinovirus/Enterovirus Not Detected (Not Detect); Influenza A Subtype 2009 H1 Not Detected (Not Detect); Influenza A Untypeable Not Detected (Not Detect); Influenza B Not Detected (Not Detect); Mycoplasma pneumoniae Not Detected (Not Detect); Parainfluenza Virus 1 Not Detected (Not Detect); Parainfluenza Virus 2 Not Detected (Not Detect); Parainfluenza Virus 3 Not Detected (Not Detect); Parainfluenza Virus 4 Not Detected (Not Detect); Respiratory Syncytial Virus Not Detected (Not Detect)
[2018-12-24] MEDS: MethylPREDNISolone 40 MG/ML VIAL IVP SCH ×2 (16:34→23:13)
[2018-12-24] MEDS: Piperacillin/Tazobactam 3.375 GM in 0.9 % Sodium Chloride Mini Bag 100 ML IVPB SCH ×2 (16:34→23:13)
[2018-12-24] MEDS: *HR* Heparin 5,000 UNIT/ML VIAL SQ SCH (17:32)
--- NOTE | 2018-12-24 18:06 | Palliative - Consult Note ---
Date of Encounter: 12/24/18 Time of Encounter: 16:35 - Assessment and Plan (1) Dyspnea Current Visit: No Status: Acute Assessment and plan: Continues with IV atb/bipap PRN at bedside, IV steroids, bronchodilators. Qualifiers: Dyspnea type: unspecified Qualified Code(s): R06.00 - Dyspnea, unspecified (2) Goals of care, counseling/discussion Current Visit: Yes Status: Acute Assessment and plan: 30 min discussion with patient. She was alone and no family present. She lives with and he assists with her care. She has home oxygen already in place, (5L)and [facility] also has home health - although she is not sure which agency. She does not it is not [place]. She is alert and oriented and makes own medical decisions. No adv directives in place. Son (Rayshawn) lives in [place] and daughter (Bessie Peck) lives in [place]. Patient has had frequent admission r/t her respiratory condition, but does want to continue aggressive treatment and desires to be a full code. However, [facility] she would not want assisted life support or tracheostomy if her condition did not improve. She has only been in hospital for about 24 hours, will continue to follow clinical coarse and monitor her progress. (3) Palliative care encounter Current Visit: Yes Status: Acute (4) Acute and chronic respiratory failure Current Visit: No Status: Acute Assessment and plan: Pulmonology is familiar with this patient from previous admissions and following closely. Reviewed their consultation note. She is on broadspectrum atb therapy, cultures are pending. Qualifiers: Respiratory failure complication: unspecified whether with hypoxia or hypercapnia Qualified Code(s): J96.20 - Acute and chronic respiratory failure, unspecified whether with hypoxia or hypercapnia (5) Acute exacerbation of chronic obstructive airways disease Current Visit: No Status: Acute (6) Cavitary pneumonia Current Visit: No Status: Acute Palliative-CN HPI - Data of Consult Requesting Physician: Wander Lima Primary Care Provider: Aren Malik Jr, MD - Consult Narrative History of present illness: Patient is a 73 year old female with PMH of advanced COPD (on 5L oxygen at home), chronic respiratory failure, HTN, and dyslipidemia who presented to the ED on12/24/18 with complaints of coughing and severe shortness of breath. Patient has had multiple hospitalizations over last 2 months for similar presentation. Patient is known to have a right lower lobe cavitary lesion on the last 2 hospitalizations and has undergone bronchoscopy 2 which is negative for any infectious process and cytology was negative for malignancy. She was discharged on a course of Augmentin and doxycycline for 28 days. On last admission she did have some hemoptysis and the possibility of a segmental/sub segmental pulmonary embolus and was on anticoagulation which had to be interrupted. Per , patient has remained short of breath since she left the hospital. Last night she woke up with severe coughing, SOB, and dyspnea. She denied any chest pain or fevers. While in the ER, a CXR was done showing bibasilar disease and small bilateral effusions. CT of the chest showed cavitary mass in the right lung may represent cavitary infectious process versus neoplastic process and showed iInterval resolution of pulmonary embolus. She was tachypneic and using accessory muscles. She was started on empiric antibiotics with vanc, zosyn and levaquin. She was given Solu-Medrol and also started on BiPAP for increased work of breathing. She was subsequently admitted for further management. She current ly admits to modest chest pain with cough also productive of thick greenish yellow sputum. She denies any hemoptysis. Palliative care was consulted for code status and goals of care given her recurrent pulmonary infections. When seen today, patient says that her chest pain has improved since her admission. Her breathing has improved but she still admits to SOB. She denies any nausea or vomiting. She denies being in any pain. Denies any fever. Admits to a productive cough with yellow sputum. Admits to intermitten GREEN, but none right now. Denies any abdominal pain. Admits to some light-headedness but denies dizziness. CC: Wander Lima - Time Spent with Patient Time: Total time spent is greater than 50% in coordination of care (as documented) at patient's floor/unit and/or counseling patient: Past Med Surg Social Fam HX - Past Medical History Medical history: COPD, hypertension Additional medical history: mitral valve prolapse Psychiatric history: anxiety - Past Surgical History Surgical History: angioplasty/stent, breast surgery, cholecystectomy, hysterectomy, orthopedic, other, other Additional surgical history: left breast. back surgery. EGD. 2 heart stents. - Social History Smoking Status: Former smoker Smokeless Tobacco Status: No Alcohol use: none Drug use: none - Family History Brother Living Status: Hx Family Cardiac Disorders: Yes Mother Living Status: Hx Family Cardiac Disorders: Yes ("artery disease", CHF) Hx Family GI Disorders: Yes (ulcers) Hx Family Endocrine Disorder: Yes Father Living Status: Hx Family Cardiac Disorders: Yes ("valve problems") Medications and Allergies Citalopram [CeleXA] 20 mg PO DAILY 02/05/16 [History] Loratadine [Claritin] 10 mg PO DAILY 02/05/16 [History] Lovastatin [Mevacor] 40 mg PO HS 02/05/16 [History] Metoprolol [Lopressor] 25 mg PO BID 02/05/16 [History] Nitroglycerin [Nitrostat] 0.4 mg SL Q5M PRN 02/05/16 [History] Albuterol Sulfate [Albuterol Inhaler] 2 puff IH Q4HR PRN #2 hfa.aer.ad 02/08/16 [Rx] Roflumilast [Daliresp] 500 mcg PO DAILY 11/11/18 [History] Aspirin [Lo-Dose Aspirin EC] 81 mg PO DAILY 11/12/18 [History] Budesonide/Formoterol 160/4.5 [Symbicort 160/4.5] 2 puff IH BIDR 11/12/18 [History] L. Acidophilus/Pectin, [place] [Acidophilus Probiotic Capsule] 1 cap PO DAILY 11/12/18 [History] Multivitamin [One Daily] 1 tab PO DAILY 11/12/18 [History] Umeclidinium [place] [Incruse Ellipta] 2 puff IH DAILY 11/12/18 [History] raNITIdine HCl [Zantac] 150 mg PO BID 11/12/18 [History] Menthol [Cough Drops] 9.1 mg PO Q2H PRN #0 lozenge 11/19/18 [Rx] Ipratropium/Albuterol Neb [Duoneb] 3 ml IH Q4HR PRN 12/09/18 [History] Melatonin 6 mg PO HS 12/09/18 [History] Amoxicillin/Clavulanate [Augmentin] 875 mg PO BIDWM 28 Days #54 tablet 12/16/18 [Rx] Doxycycline 100 mg PO BID 28 Days #54 capsule 12/16/18 [Rx] Furosemide [Lasix] 20 mg PO DAILY 12/24/18 [History] Guaifenesin [Mucinex] 600 mg PO BID PRN 12/24/18 [History] Potassium Chloride [K-Tab ER] 20 meq PO DAILY 12/24/18 [History] predniSONE [PredniSONE] See Taper PO TAPER 12/24/18 [History] Allergy/AdvReac Type Severity Reaction Status Date / Time clarithromycin [From Biaxin] Allergy Gastrointestinal Verified 12/24/18 14:22 Upset codeine AdvReac See Verified 12/24/18 14:22 Comments lansoprazole [From Prevacid] AdvReac ulcer Verified 12/24/18 14:22 lisinopril AdvReac Cough Verified 12/24/18 14:22 meloxicam [From Mobic] AdvReac ulcer Verified 12/24/18 14:22 opium (anthroposophic) AdvReac nausea/vomi Verified 12/24/18 14:22 [Opium (Anthroposophic)] ting All systems: reviewed and no additional remarkable complaints except as stated (headache, lightheadedness, shortness of breath, lower extremity swelling, prod cough) Palliative Care-Exam - Constitutional Vitals: Temp Pulse Resp BP Pulse Ox 97.6 F 104 32 134/69 96 12/24/18 16:07 12/24/18 16:07 12/24/18 16:07 12/24/18 16:07 12/24/18 16:07 General appearance: Present: no acute distress - Head Head Exam: Present: normal inspection, normocephalic - ENT ENT exam: Present: mucous membranes moist - Respiratory Respiratory exam: Present: decreased breath sounds Additional comments: Breath sounds coarse throughout with faint rales bilateral lower lobes posteriorally - Cardiovascular Cardiovascular exam: Present: +S1, +S2 - GI/Abdominal Exam GI/Abdominal exam: Present: normal bowel sounds, soft - Additional comments: Voiding per BSC - Extremities Exam Additional comments: 1+ edema RLE/ 2+ LLE - Neurological Exam Neurological exam: Present: alert, oriented X3, strengths equal and symetr throughout - Skin Skin exam: Present: dry, pallor, warm Internal Medicine - CN: Reslt - Labs CBC & Chem 7: 12/24/18 06:15 12/24/18 06:15 Labs: Short CBC 12/24/18 Range/Units 06:15 WBC 14.9 H (4.3-11.1) K/mcL Hgb 9.6 L (11.5-15.4) g/dL Hct 30.9 L (35.3-44.9) % Plt Count 446 H (140-400) K/mcL Neutrophils # 11.9 H (1.6-8.9) K/mcL BMP 12/24/18 06:15 Sodium 138 Potassium 3.9 Chloride 98 Carbon Dioxide 29 BUN 22 Creatinine 0.67 Glucose 120 H Calcium 9.9 Cardiac Enzymes 12/24/18 12/24/18 Range/Units 06:15 12:42 Troponin I 0.04 H* 0.04 H* (< 0.04) ng/mL Urine 12/24/18 Range/Units 07:40 Urine Color Yellow (Yellow) Urine Clarity Clear (Clear) Urine pH 7.0 (5.0-8.0) pH Units Ur Specific [place] 1.014 (1.010-1.025) Urine Protein Trace (Neg-Trace) mg/dL Urine Glucose (UA) Normal (Normal) mg/dL - ABG Interpretation ABG results: ABG ABG pH 7.46 pH Units (7.32-7.45) H 12/24/18 09:04 ABG pCO2 39 mmHg (35-45) 12/24/18 09:04 ABG pO2 73 mmHg (85-104) L 12/24/18 09:04 ABG O2 Saturation 95 % (95-98) 12/24/18 09:04 - Impressions Impressions Chest X-Ray 12/24/18 05:47 IMPRESSION: Bibasilar atelectasis and/or pneumonia. D/ / Burke Uribe MD / Burke Uribe MD Interpreting Provider: Burke Uribe MD Chest CTA 12/24/18 07:42 IMPRESSION: Interval resolution of pulmonary embolus. Cavitary mass in the right lung may represent cavitary infectious process versus neoplastic process Mediastinal adenopathy may be reactive or neoplastic in nature. Bronchiectatic changes and bibasilar infiltrate D/ / Jose A Guaman MD / Jose A Guaman MD Interpreting Provider: Jose A Guaman MD Consult Discharge Plan - Plan Referrals: Aren Malik Jr, MD [Primary Care Provider] - Palliative Quality Palliative Quality: Screen for Code Status: Yes, Screen for Goals of Care: Yes, Screen for Pain: Yes, If Pain Regimen Started, Initiate Bowel Regimen: NA, Screen for Nausea/Vomitting: Yes Code Status: 12/24/18 07:13 Resuscitation Status: Active [RES] Routine Comment: Resuscitation Status: Full Code
[2018-12-25 00:52] LABS: Basophils % 0.1 %; Hematocrit 28.6 % (35.3-44.9); Hemoglobin 8.9 g/dL (11.5-15.4); Immature Granulocytes % 0.7 % (0-4); Lymphocytes # 0.6 K/mcL (0.6-4.6); Lymphocytes % 6.6 %; Mean Corpuscular HGB Conc 31.1 g/dL (31.6-35.5); Mean Corpuscular Hemoglobin 29.3 pg (28.0-33.3); Mean Corpuscular Volume 94.1 fL (83.0-100.0); Mean Platelet Volume 10.7 fL (9.4-12.4); Monocytes # 0.6 K/mcL (0.0-1.3); Monocytes % 6.3 %; Neutrophils # 7.9 K/mcL (1.6-8.9); Platelet Count 401 K/mcL (140-400); Red Blood Count 3.04 M/mcL (3.82-4.97); Red Cell Distribution Width 15.4 % (11.5-14.5); Segmented Neutrophils % 86.3 %
[2018-12-25 01:08] LABS: BUN/Creatinine Ratio 33 (6-26); Blood Urea Nitrogen 23 mg/dL (8-23); Calcium 8.9 mg/dL (8.6-10.3); Carbon Dioxide 29 mEq/L (23-29); Chloride 99 mEq/L (98-107); Glucose 168 mg/dL (70-105); Magnesium 1.7 mg/dL (1.6-2.6); Osmolality,Calculated 294 (280-300); Phosphorous 2.9 mg/dL (2.7-4.5); Potassium 3.5 mEq/L (3.5-5.1); Sodium 138 mEq/L (136-145); eGFR For Non-African Americans > 60 (> 60)
[2018-12-25] MEDS: Melatonin 3 MG TABLET PO PRN ×2 (01:19→22:24)
[2018-12-25] MEDS: Piperacillin/Tazobactam 3.375 GM in 0.9 % Sodium Chloride Mini Bag 100 ML IVPB SCH ×3 (01:20→15:47)
[2018-12-25] MEDS: Levalbuterol Neb 1.25 MG/3 ML IH SCH ×4 (04:04→21:54)
[2018-12-25] MEDS: *HR* Heparin 5,000 UNIT/ML VIAL SQ SCH ×2 (06:15→15:49)
--- NOTE | 2018-12-25 08:10 | Pulmonology Progress Note ---
Date of Encounter: 12/25/18 Time of Encounter: 08:10 Assessment and Plan (1) Acute and chronic respiratory failure with hypoxia Current Visit: No Status: Acute This is secondary to COPD exacerbation and heart failure she is improving with current treatment and going back to baseline oxygen requirements around 3 L and goal saturation should be 89 to 92% (2) Acute diastolic heart failure with preserved ejection fraction Current Visit: Yes Status: Acute She will continue to benefit from diuresis as I think hydrostatic pulmonary edema as one of her primary problems on this admission would replace magnesium 2 g now and then given 40 IV Lasix goal negative around another liter today as tolerated by her kidney function (3) Acute exacerbation of chronic obstructive airways disease Current Visit: No Status: Acute She is on IV steroids which can be transitioned to by mouth steroids likely in the next 24 hours to complete a two-week taper she will need outpatient pulmonary follow-up in 1-2 weeks at the time of discharge (4) Cavitary pneumonia Current Visit: No Status: Acute She is on broad-spectrum antibiotics right now which can be continued over the weekend recommend infectious disease consult on Thursday from my perspective I think she can return to Augmentin and doxycycline to complete prolonged course of antibiotics at discharge 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 but cultures remain pending (5) Pulmonary embolism Current Visit: No Status: Suspected Equivocal diagnosis I believe that this admission was secondary to heart failure and COPD exacerbation she has a repeat CT angiogram of her chest pending in 3-4 weeks' time Pulmonary will sign off please call with any questions thank you very much for allowing me to participate in the care of this patient will look forward to seeing her in outpatient pulmonary clinic Qualifiers: Pulmonary embolism type: unspecified Chronicity: acute Acute cor pulmonale presence: without acute cor pulmonale Qualified Code(s): I26.99 - Other pulmonary embolism without acute cor pulmonale Subjective Principal diagnosis: Acute on chronic respiratory failure Interval history: Ms. Peck is on quite well she has been weaned off BiPAP setting up in the chair is saturating well on 5-6 L nasal cannula O2 says she is feeling much better she states that she has much less of lower extremity edema remains hemodynamically stable Objective PUL Vital signs: Last Vital Signs Temp 98.5 F 12/24/18 20:12 Pulse 92 12/25/18 00:36 Resp 16 12/25/18 04:04 BP 137/81 12/25/18 00:36 Pulse Ox 96 12/25/18 04:04 General appearance: no acute distress Eyes: nonicteric Auscultation: bilateral: rales Cardiovascular: regular rate and rhythm Gastrointestinal: normoactive bowel sounds, soft, non-tender Integumentary: normal Extremities: edema Musculoskeletal: no deformities normal mental status, non-focal exam mood appropriate Results - Laboratory Findings CBC and BMP: 12/25/18 00:33 12/25/18 00:33 ABG ABG pH 7.46 pH Units (7.32-7.45) H 12/24/18 09:04 ABG pCO2 39 mmHg (35-45) 12/24/18 09:04 ABG pO2 73 mmHg (85-104) L 12/24/18 09:04 ABG O2 Saturation 95 % (95-98) 12/24/18 09:04 Abnormal lab findings: Abnormal lab results WBC 14.9 K/mcL (4.3-11.1) H 12/24/18 06:15 RBC 3.04 M/mcL (3.82-4.97) L 12/25/18 00:33 Hgb 8.9 g/dL (11.5-15.4) L 12/25/18 00:33 Hct 28.6 % (35.3-44.9) L 12/25/18 00:33 MCHC 31.1 g/dL (31.6-35.5) L 12/25/18 00:33 RDW 15.4 % (11.5-14.5) H 12/25/18 00:33 Plt Count 401 K/mcL (140-400) H 12/25/18 00:33 11.9 K/mcL (1.6-8.9) H 12/24/18 06:15 ABG pH 7.46 pH Units (7.32-7.45) H 12/24/18 09:04 ABG pO2 73 mmHg (85-104) L 12/24/18 09:04 ABG HCO3 28 mEq/L (21-27) H 12/24/18 09:04 ABG Total CO2 29 mEq/L (20-26) H 12/24/18 09:04 ABG Base Excess 4 mEq/L (-2 to 3) H 12/24/18 09:04 33 (6-26) H 12/25/18 00:33 Glucose 168 mg/dL (70-105) H 12/25/18 00:33 Magnesium 1.3 mg/dL (1.6-2.6) L 12/24/18 06:15 0.04 ng/mL (< 0.04) H* 12/25/18 00:33 B-Natriuretic Peptide 1307 pg/mL (Less than 100) H 12/24/18 06:15 Moderate (Negative) H 12/24/18 07:40 Ur Leukocyte Esterase Trace (Negative) H 12/24/18 07:40 3-5 per hpf (0-3) H 12/24/18 07:40 3-5 per hpf (0-3) H 12/24/18 07:40 Ur Squamous Epith Cells Many per lpf (None-Few) H 12/24/18 07:40 Ur Culture Indicated? NO. (NO) A 12/24/18 07:40 - Microbiology Findings Microbiology Findings: Microbiology, Last 48 Hours 12/24/18 10:09 Sputum Culture - Final Sputum 12/24/18 07:40 Legionella Antigen - Final Urine,Clean Catch Streptococcus pneumoniae Antigen (M - Final 12/24/18 06:15 Blood Culture - Preliminary Peripheral Venipuncture Culture is incubating and being continuously monitored for growth. Final report to follow. 12/24/18 06:27 Blood Culture - Preliminary Peripheral Venipuncture Culture is incubating and being continuously monitored for growth. Final report to follow. - Clinical Findings Intake & Output: Intake & Output 12/24/18 12/25/18 12/25/18 23:59 07:59 15:59 Intake Total 350 / 854 100 / 100 Balance 350 / 854 100 / 100 Consult Discharge Plan - Plan Referrals: Aren Malik Jr, MD [Primary Care Provider] -
[2018-12-25] MEDS: Aspirin Enteric Coated 81 MG Tablet PO SCH (08:38)
[2018-12-25] MEDS: MethylPREDNISolone 40 MG/ML VIAL IVP SCH ×2 (08:38→15:47)
[2018-12-25] MEDS: Levofloxacin 750 MG/150 ML 750 MG/150 ML BAG IVPB SCH (08:40)
[2018-12-25] MEDS: Budesonide/Formoterol 160/4.5 1 PUFF INH IH SCH ×2 (10:56→21:54)
--- NOTE | 2018-12-25 12:22 | Palliative Progress Note ---
Date of Encounter: 12/25/18 Time of Encounter: 10:45 - Assessment and plan (1) Dyspnea Current Visit: No Status: Acute Assessment and plan: Patient reports dyspnea at baseline level. Continue IV antibiotics, BiPAP when necessary at bedside, IV steroids, and bronchodilators. Qualifiers: Dyspnea type: unspecified Qualified Code(s): R06.00 - Dyspnea, unspecified (2) Acute and chronic respiratory failure Current Visit: No Status: Acute Assessment and plan: Pulmonary recommendations appreciated; known patient of Dr. Alexander. Qualifiers: Respiratory failure complication: unspecified whether with hypoxia or hypercapnia Qualified Code(s): J96.20 - Acute and chronic respiratory failure, unspecified whether with hypoxia or hypercapnia (3) Acute exacerbation of chronic obstructive airways disease Current Visit: No Status: Acute (4) Cavitary pneumonia Current Visit: No Status: Acute (5) Goals of care, counseling/discussion Current Visit: Yes Status: Acute Assessment and plan: 20 minute discussion with patient and conducted. Patient lives with him providing her care. Patient does have home oxygen at 5 L and home health agency. Patient reports she would be willing to have home physical therapy and occupational therapy discharge. Patient report continues to report unknown agency. Patient has no advanced directives. Patient admits she understands she should c omplete these; however, does not feel she is ready to at this time. Patient continues to desire aggressive treatment and her desires to remain a full code. Patient unsure at this time wishes for long-term life support; however, feels she needs to have this conversation with her family, rohit parmar at time of discharge. Patient desires to return home with [facility]. Patient previously participated in inpatient rehabilitation and feels that is not necessary at this time. Palliative care in managing symptoms at this time. Discharge disposition established. Palliative care will sign off, please reconsult as needed. Thank you for involving the palliative care team in the care of your patient. (6) Palliative care encounter Current Visit: Yes Status: Acute - Time Spent With Patient Total time spent is greater than 50% in coordination of care (as documented) at patient's floor/unit and/or counseling patient: less than 15 minutes - Subjective Interval history: Patient sitting up at bedside upon arrival for assessment, no family present at bedside. Patient alert and oriented 3. Patient denies pain, anxiety, nausea, and vomiting. Patient does report continued dyspnea; reports current dyspnea comparable to baseline. Patient lives at home with . Patient no longer requiring BiPAP support at present time on 5 L nasal cannula, at home oxygen usage. - Constitutional Vitals: Abnormal lab results WBC 14.9 K/mcL (4.3-11.1) H 12/24/18 06:15 RBC 3.04 M/mcL (3.82-4.97) L 12/25/18 00:33 Hgb 8.9 g/dL (11.5-15.4) L 12/25/18 00:33 Hct 28.6 % (35.3-44.9) L 12/25/18 00:33 MCHC 31.1 g/dL (31.6-35.5) L 12/25/18 00:33 RDW 15.4 % (11.5-14.5) H 12/25/18 00:33 Plt Count 401 K/mcL (140-400) H 12/25/18 00:33 11.9 K/mcL (1.6-8.9) H 12/24/18 06:15 ABG pH 7.46 pH Units (7.32-7.45) H 12/24/18 09:04 ABG pO2 73 mmHg (85-104) L 12/24/18 09:04 ABG HCO3 28 mEq/L (21-27) H 12/24/18 09:04 ABG Total CO2 29 mEq/L (20-26) H 12/24/18 09:04 ABG Base Excess 4 mEq/L (-2 to 3) H 12/24/18 09:04 33 (6-26) H 12/25/18 00:33 Glucose 168 mg/dL (70-105) H 12/25/18 00:33 Magnesium 1.3 mg/dL (1.6-2.6) L 12/24/18 06:15 0.04 ng/mL (< 0.04) H* 12/25/18 00:33 B-Natriuretic Peptide 1307 pg/mL (Less than 100) H 12/24/18 06:15 Moderate (Negative) H 12/24/18 07:40 Ur Leukocyte Esterase Trace (Negative) H 12/24/18 07:40 3-5 per hpf (0-3) H 12/24/18 07:40 3-5 per hpf (0-3) H 12/24/18 07:40 Ur Squamous Epith Cells Many per lpf (None-Few) H 12/24/18 07:40 Ur Culture Indicated? NO. (NO) A 12/24/18 07:40 General appearance: Present: cooperative, no acute distress - Head Head exam: Present: atraumatic, normal inspection - Eye Eye exam: Present: normal appearance. Absent: periorbital swelling, periorbital tenderness Pupils: Present: normal accommodation, PERRL - ENT ENT exam: Present: mucous membranes dry, normal external ear exam - Neck Neck exam: Present: normal inspection - Respiratory Respiratory exam: Present: accessory muscle use, rhonchi, wheezes. Absent: respiratory distress, tachypnea - Cardiovascular Cardiovascular exam: Present: +S1, +S2 - GI/Abdominal GI/Abdominal exam: Present: normal bowel sounds, soft. Absent: tenderness - Rectal Rectal exam: Present: deferred - Expanded Exam Female exam: Present: deferred - Extremities Exam Extremities exam: Present: full ROM, normal capillary refill, normal inspection. Absent: pedal edema - Back Exam Back exam: Present: normal inspection - Neurological Exam Neurological exam: Present: alert, oriented X3, strengths equal and symetr throughout. Absent: altered - Psychiatric Psychiatric exam: Present: normal affect, normal mood - Skin Skin exam: Present: intact, normal color, warm Palliative Quality Palliative Quality: Screen for Code Status: Yes, Screen for Goals of Care: Yes, Screen for Pain: Yes, If Pain Regimen Started, Initiate Bowel Regimen: NA, Screen for Nausea/Vomitting: Yes Code Status: 12/24/18 07:13 Resuscitation Status: Active [RES] Routine Comment: Resuscitation Status: Full Code - Labs CBC & Chem 7: 12/25/18 00:33 12/25/18 00:33 Labs: Laboratory Results - last 24 hr 12/24/18 12/24/18 12/24/18 10:08 12:42 18:27 WBC RBC Hgb Hct MCV MCH MCHC RDW Plt Count MPV Immature Gran % Seg Neutrophils % Lymphocytes % Monocytes % Eosinophils % Basophils % Neutrophils # Lymphocytes # Monocytes # Eosinophils # Basophils # Sodium Potassium Chloride Carbon Dioxide BUN Creatinine Est GFR ( Amer) Est GFR (Non-Af Amer) BUN/Creatinine Ratio Glucose Calculated Osmolality Lactic Acid Calcium Phosphorus Magnesium Troponin I 0.04 H* 0.04 H* Chlamy pneumoniae PCR Not Detected Adenovirus (PCR) Not Detected B. pertussis DNA (PCR) Not Detected B.parapertussis DNA PCR Not Detected Coronavirus OC43 (PCR) Not Detected Coronavirus HKU1 (PCR) Not Detected Coronavirus 229E (PCR) Not Detected Coronavirus NL63 (PCR) Not Detected Human Metapneumovir PCR Not Detected Influenza A (H1) PCR Not Detected Influ A (H1N1) PCR Not Detected Influenza A (H3) PCR Not Detected Influenza A Untype (PCR) Not Detected Influenza Type B (PCR) Not Detected M.pneumoniae DNA (PCR) Not Detected Parainfluenza 1 (PCR) Not Detected Parainfluenza 2 (PCR) Not Detected Parainfluenza 3 (PCR) Not Detected Parainfluenza 4 (PCR) Not Detected RSV (PCR) Not Detected Entero/Rhino (PCR) Not Detected 12/24/18 12/25/18 12/25/18 20:43 00:33 00:33 WBC 9.2 RBC 3.04 L Hgb 8.9 L Hct 28.6 L MCV 94.1 MCH 29.3 MCHC 31.1 L RDW 15.4 H Plt Count 401 H MPV 10.7 Immature Gran % 0.7 Seg Neutrophils % 86.3 Lymphocytes % 6.6 Monocytes % 6.3 Eosinophils % 0.0 Basophils % 0.1 Neutrophils # 7.9 Lymphocytes # 0.6 Monocytes # 0.6 Eosinophils # 0.0 Basophils # 0.0 Sodium Potassium Chloride Carbon Dioxide BUN Creatinine Est GFR ( Amer) Est GFR (Non-Af Amer) BUN/Creatinine Ratio Glucose Calculated Osmolality Lactic Acid 1.7 Calcium Phosphorus Magnesium Troponin I 0.04 H* Chlamy pneumoniae PCR Adenovirus (PCR) B. pertussis DNA (PCR) B.parapertussis DNA PCR Coronavirus OC43 (PCR) Coronavirus HKU1 (PCR) Coronavirus 229E (PCR) Coronavirus NL63 (PCR) Human Metapneumovir PCR Influenza A (H1) PCR Influ A (H1N1/09) PCR Influenza A (H3) PCR Influenza A Untype (PCR) Influenza Type B (PCR) M.pneumoniae DNA (PCR) Parainfluenza 1 (PCR) Parainfluenza 2 (PCR) Parainfluenza 3 (PCR) Parainfluenza 4 (PCR) RSV (PCR) Entero/Rhino (PCR) 12/25/18 00:33 WBC RBC Hgb Hct MCV MCH MCHC RDW Plt Count MPV Immature Gran % Seg Neutrophils % Lymphocytes % Monocytes % Eosinophils % Basophils % Neutrophils # Lymphocytes # Monocytes # Eosinophils # Basophils # Sodium 138 Potassium 3.5 Chloride 99 Carbon Dioxide 29 BUN 23 Creatinine 0.69 Est GFR ( Amer) > 60 Est GFR (Non-Af Amer) > 60 BUN/Creatinine Ratio 33 H Glucose 168 H Calculated Osmolality 294 Lactic Acid Calcium 8.9 Phosphorus 2.9 Magnesium 1.7 Troponin I Chlamy pneumoniae PCR Adenovirus (PCR) B. pertussis DNA (PCR) B.parapertussis DNA PCR Coronavirus OC43 (PCR) Coronavirus HKU1 (PCR) Coronavirus 229E (PCR) Coronavirus NL63 (PCR) Human Metapneumovir PCR Influenza A (H1) PCR Influ A (H1N1/09) PCR Influenza A (H3) PCR Influenza A Untype (PCR) Influenza Type B (PCR) M.pneumoniae DNA (PCR) Parainfluenza 1 (PCR) Parainfluenza 2 (PCR) Parainfluenza 3 (PCR) Parainfluenza 4 (PCR) RSV (PCR) Entero/Rhino (PCR) - ABG Interpretation ABG results: ABG ABG pH 7.46 pH Units (7.32-7.45) H 12/24/18 09:04 ABG pCO2 39 mmHg (35-45) 12/24/18 09:04 ABG pO2 73 mmHg (85-104) L 12/24/18 09:04 ABG O2 Saturation 95 % (95-98) 12/24/18 09:04 Palliative Scale - Palliative Performance Scale How ambulatory is this patient?: Reduced What is patient's level of activity and evidence of disease?: Unable normal job/work, Significant disease How much self-care assistance does patient require?: Occasional assistance necessary How much oral intake does the patient have?: Normal or reduced What is this patient's level of consciousness?: Full or confusion Palliative Performance Score: 70 % Consult Discharge Plan - Plan Referrals: Aren Malik Jr, MD [Primary Care Provider] -
[2018-12-25] MEDS: Furosemide 40 MG/4 ML VIAL IVP SCH (12:26)
--- NOTE | 2018-12-25 17:59 | Electrocardiograph Report ---
[address] [address] Test Date: 2018-12-24 Pat Name: Nany Peck Department: EXAM2 Room: 2NE24 Gender: F Baler: : 1945 Requested By: Yahir Fish Order Number: [id number] Reading MD: Michela Akhtar Measurements Intervals [place] Rate: 110 P: 82 TN: 143 QRS: -85 QRSD: 98 T: 65 QT: 329 QTc: 445 Interpretive Statements Sinus tachycardia Left anterior fascicular block Electronically Signed On 12-25-2018 17:58:18 EDT by Michela Akhtar
[2018-12-25] MEDS: Benzonatate 100 MG CAPSULE PO PRN (18:45)
--- NOTE | 2018-12-25 18:59 | Internal Med Progress Note ---
Hospitalist Progress Note - Encounter Date of Encounter: 12/25/18 Time of Encounter: 18:00 - Subjective Interval History: SUBJECTIVE: The patient feels better. Her breathing is not labored and tomorrow. She does have off and on cough; occasionally with wheezing. She is on 5 L/min nasal cannula oxygen (her baseline). Denies chest pain. Denies abdominal pain, nausea and vomiting. She has normal urination. OBJECTIVE: Skin: Free of rash and discoloration. ENMT: Oral/pharyngeal mucosa is normal in appearance. Eyes: Sclera is white. There is no discharge from eyes. Respiratory: Normal breath sounds. I cannot hear any rhonchi or wheezes. CV: Heart is irregularly irregular with no audible murmur. GI: Abdomen is soft and not tender. There is no palpable mass or visceromegaly. Neuro: There is no focal deficits. ADDITIONAL DATA: CT angiogram of chest from 12/24 reveals interval resolution of pulmonary embolus. It shows cavitary mass in the right lung, may represent cavitary infectious process versus neoplastic process. Mediastinal Muriel 5 he may be reactive or neoplastic in nature. Hemoglobin is 8.9 (chronic) with a WBC of 9.2 thousand and platelet count of 401,000. BMP is normal. ASSESSMENT AND PLAN: Cavitary pneumonia/COPD exacerbation. With acute on chronic respiratory failure with hypoxia. She is on IV vancomycin/Zosyn/Levaquin. To continue nebulizer treatments with Symbicort and Xopenex. Continue IV Solu-Medrol. We appreciate help from pulmonary diseases. Acute on chronic diastolic heart failure. Her last echo showed preserved left ventricular ejection fraction. She got 1 dose of IV Lasix. Elevated troponin. Likely secondary to hypoxia/sepsis. Chronic anemia. Stable. - Exam Vitals: Temp Pulse Resp BP Pulse Ox 98.2 F 112 20 120/68 95 12/25/18 15:44 12/25/18 15:44 12/25/18 15:45 12/25/18 15:44 12/25/18 15:45 Exam: xx - Assessment and Plan (1) Cavitary lesion of lung Current Visit: Yes Status: Acute (2) Hospital-acquired pneumonia Current Visit: Yes Status: Acute (3) COPD (chronic obstructive pulmonary disease) with emphysema Current Visit: Yes Status: Acute (4) Acute and chronic respiratory failure with hypoxia Current Visit: No Status: Acute (5) Elevated troponin Current Visit: No Status: Acute (6) Acute on chronic diastolic heart failure Current Visit: Yes Status: Acute - Time Spent with Patient Total time spent is greater than 50% in coordination of care (as documented) at patient's floor/unit and/or counseling patient: 25 - 35 minutes Plan of Care Discussed with: patient Internal Medicine: Result - Labs CBC & Chem 7: 12/25/18 00:33 12/25/18 00:33 Labs: Short CBC 12/25/18 Range/Units 00:33 WBC 9.2 (4.3-11.1) K/mcL Hgb 8.9 L (11.5-15.4) g/dL Hct 28.6 L (35.3-44.9) % Plt Count 401 H (140-400) K/mcL Neutrophils # 7.9 (1.6-8.9) K/mcL BMP 12/25/18 00:33 Sodium 138 Potassium 3.5 Chloride 99 Carbon Dioxide 29 BUN 23 Creatinine 0.69 Glucose 168 H Calcium 8.9 Cardiac Enzymes 12/24/18 12/25/18 Range/Units 18:27 00:33 Troponin I 0.04 H* 0.04 H* (< 0.04) ng/mL - ABG Interpretation ABG results: ABG ABG pH 7.46 pH Units (7.32-7.45) H 12/24/18 09:04 ABG pCO2 39 mmHg (35-45) 12/24/18 09:04 ABG pO2 73 mmHg (85-104) L 12/24/18 09:04 ABG O2 Saturation 95 % (95-98) 12/24/18 09:04 Consult Discharge Plan - Plan Referrals: Aren Malik Jr, MD [Primary Care Provider] - (3) COPD (chronic obstructive pulmonary disease) with emphysema Qualifiers: Qualified Code(s): J43.9 - Emphysema, unspecified
[2018-12-25] MEDS: Lactobacillus 1 EACH CAP.SPRINK PO SCH (22:24)
[2018-12-26] MEDS: Piperacillin/Tazobactam 3.375 GM in 0.9 % Sodium Chloride Mini Bag 100 ML IVPB SCH ×3 (00:35→17:33)
[2018-12-26] MEDS: MethylPREDNISolone 40 MG/ML VIAL IVP SCH ×3 (00:35→17:30)
[2018-12-26] MEDS: Benzonatate 100 MG CAPSULE PO PRN ×3 (02:06→20:01)
[2018-12-26] MEDS: Levalbuterol Neb 1.25 MG/3 ML IH SCH ×4 (04:13→21:32)
[2018-12-26] MEDS: *HR* Heparin 5,000 UNIT/ML VIAL SQ SCH ×2 (05:51→17:34)
[2018-12-26 08:03] LABS: BUN/Creatinine Ratio 42 (6-26); Blood Urea Nitrogen 25 mg/dL (8-23); Calcium 9.3 mg/dL (8.6-10.3); Carbon Dioxide 27 mEq/L (23-29); Chloride 103 mEq/L (98-107); Glucose 190 mg/dL (70-105); Magnesium 1.9 mg/dL (1.6-2.6); Osmolality,Calculated 297 (280-300); Potassium 3.5 mEq/L (3.5-5.1); Sodium 139 mEq/L (136-145); eGFR For Non-African Americans > 60 (> 60)
[2018-12-26] MEDS ORDERED: Aminoglycoside Consult 1 EACH MC ONE (08:11)
[2018-12-26 08:40] LABS: Basophils % 0.2 %; Hemoglobin 9.8 g/dL (11.5-15.4); Immature Granulocytes % 1.7 % (0-4); Lymphocytes # 1.3 K/mcL (0.6-4.6); Lymphocytes % 11.3 %; Mean Corpuscular HGB Conc 31.6 g/dL (31.6-35.5); Mean Corpuscular Hemoglobin 29.4 pg (28.0-33.3); Mean Corpuscular Volume 93.1 fL (83.0-100.0); Mean Platelet Volume 11.3 fL (9.4-12.4); Monocytes # 0.8 K/mcL (0.0-1.3); Monocytes % 7.3 %; Neutrophils # 9.1 K/mcL (1.6-8.9); Platelet Count 411 K/mcL (140-400); Red Blood Count 3.33 M/mcL (3.82-4.97); Red Cell Distribution Width 15.6 % (11.5-14.5); Segmented Neutrophils % 79.5 %
[2018-12-26] MEDS: Lactobacillus 1 EACH CAP.SPRINK PO SCH (08:42)
[2018-12-26] MEDS: Aspirin Enteric Coated 81 MG Tablet PO SCH (08:42)
[2018-12-26] MEDS: Furosemide 40 MG/4 ML VIAL IVP SCH (08:48)
[2018-12-26] MEDS: Budesonide/Formoterol 160/4.5 1 PUFF INH IH SCH ×2 (10:15→21:33)
[2018-12-26] MEDS: Levofloxacin 750 MG/150 ML 750 MG/150 ML BAG IVPB SCH (15:29)
--- NOTE | 2018-12-26 16:21 | Internal Med Progress Note ---
Hospitalist Progress Note - Encounter Date of Encounter: 12/26/18 Time of Encounter: 16:20 - Subjective Interval History: SUBJECTIVE: The patient progressively but. Her breathing is not labored any more. She does have off and on cough; occasionally with wheezing. She is on 5 L/min nasal cannula oxygen (her baseline). Denies chest pain. Denies abdominal pain, nausea and vomiting. She has normal urination. OBJECTIVE: Skin: Free of rash and discoloration. ENMT: Oral/pharyngeal mucosa is normal in appearance. Eyes: Sclera is white. There is no discharge from eyes. Respiratory: Normal breath sounds. I cannot hear any rhonchi or wheezes. CV: Heart is irregularly irregular with no audible murmur. GI: Abdomen is soft and not tender. There is no palpable mass or visceromegaly. Neuro: There is no focal deficits. ADDITIONAL DATA: CT angiogram of chest from 12/24 reveals interval resolution of pulmonary embolus. It shows cavitary mass in the right lung, may represent cavitary infectious process versus neoplastic process. Mediastinal Muriel 5 he may be reactive or neoplastic in nature. BMP is normal. ASSESSMENT AND PLAN: Cavitary pneumonia/COPD exacerbation. With acute on chronic respiratory failure with hypoxia. She is on IV vancomycin/Zosyn/Levaquin. To continue nebulizer treatments with Symbicort and Xopenex. Continue IV Solu-Medrol. Blood cultures seem to be negative; after 2 days. I will stop her vancomycin. We appreciate help from pulmonary diseases. Acute on chronic diastolic heart failure. Her last echo showed preserved left ventricular ejection fraction. She got 1 dose of IV Lasix. Elevated troponin. Likely secondary to hypoxia/sepsis. Chronic anemia. Stable. - Exam Vitals: Temp Pulse Resp BP Pulse Ox 98 F 106 18 133/75 98 12/26/18 15:47 12/26/18 15:47 12/26/18 15:47 12/26/18 15:47 12/26/18 15:47 Exam: xx - Assessment and Plan (1) Cavitary lesion of lung Current Visit: Yes Status: Acute (2) Hospital-acquired pneumonia Current Visit: Yes Status: Acute (3) COPD (chronic obstructive pulmonary disease) with emphysema Current Visit: Yes Status: Acute (4) Acute and chronic respiratory failure with hypoxia Current Visit: No Status: Acute (5) Elevated troponin Current Visit: No Status: Acute (6) Acute on chronic diastolic heart failure Current Visit: Yes Status: Acute - Time Spent with Patient Total time spent is greater than 50% in coordination of care (as documented) at patient's floor/unit and/or counseling patient: 25 - 35 minutes Plan of Care Discussed with: patient Internal Medicine: Result - Labs CBC & Chem 7: 12/26/18 08:15 12/26/18 07:17 Labs: Short CBC 12/26/18 Range/Units 08:15 WBC 11.5 H (4.3-11.1) K/mcL Hgb 9.8 L (11.5-15.4) g/dL Hct 31.0 L (35.3-44.9) % Plt Count 411 H (140-400) K/mcL Neutrophils # 9.1 H (1.6-8.9) K/mcL BMP 12/26/18 07:17 Sodium 139 Potassium 3.5 Chloride 103 Carbon Dioxide 27 BUN 25 H Creatinine 0.60 Glucose 190 H Calcium 9.3 - ABG Interpretation ABG results: ABG ABG pH 7.46 pH Units (7.32-7.45) H 12/24/18 09:04 ABG pCO2 39 mmHg (35-45) 12/24/18 09:04 ABG pO2 73 mmHg (85-104) L 12/24/18 09:04 ABG O2 Saturation 95 % (95-98) 12/24/18 09:04 Consult Discharge Plan - Plan Referrals: Aren Malik Jr, MD [Primary Care Provider] - (3) COPD (chronic obstructive pulmonary disease) with emphysema Qualifiers: Qualified Code(s): J43.9 - Emphysema, unspecified
[2018-12-26] MEDS: Melatonin 3 MG TABLET PO PRN (20:03)
[2018-12-27] MEDS: MethylPREDNISolone 40 MG/ML VIAL IVP SCH ×4 (00:59→23:51)
[2018-12-27] MEDS: Piperacillin/Tazobactam 3.375 GM in 0.9 % Sodium Chloride Mini Bag 100 ML IVPB SCH ×3 (01:00→19:12)
[2018-12-27] MEDS ORDERED: Ondansetron 4 MG/2 ML VIAL IVP PRN (01:12)
[2018-12-27] MEDS: Levalbuterol Neb 1.25 MG/3 ML IH SCH ×4 (03:50→21:59)
[2018-12-27] MEDS: *HR* Heparin 5,000 UNIT/ML VIAL SQ SCH ×2 (05:29→19:03)
[2018-12-27] MEDS: Aspirin Enteric Coated 81 MG Tablet PO SCH (09:58)
[2018-12-27] MEDS: Lactobacillus 1 EACH CAP.SPRINK PO SCH (09:58)
[2018-12-27] MEDS: Furosemide 40 MG/4 ML VIAL IVP SCH (09:58)
[2018-12-27] MEDS: Budesonide/Formoterol 160/4.5 1 PUFF INH IH SCH ×2 (10:07→21:59)
[2018-12-27] MEDS ORDERED: Levofloxacin 750 MG/150 ML 750 MG/150 ML BAG IVPB SCH (14:00)
[2018-12-27] MEDS: Benzonatate 100 MG CAPSULE PO PRN (22:22)
[2018-12-27] MEDS: Ondansetron ODT 4 MG TAB.RAPDIS SL PRN (23:50)
[2018-12-28] MEDS: Melatonin 3 MG TABLET PO PRN
[2018-12-28] MEDS: Levalbuterol Neb 1.25 MG/3 ML IH SCH ×2 (04:33→10:59)
[2018-12-28] MEDS: *HR* Heparin 5,000 UNIT/ML VIAL SQ SCH (05:14)
--- NOTE | 2018-12-28 05:17 | Internal Med Progress Note ---
Hospitalist Progress Note - Encounter Date of Encounter: 12/27/18 Time of Encounter: 19:00 - Subjective Interval History: SUBJECTIVE: The patient feels pretty good today. She does have mild cough but not wheezing. She is able to ambulate short distances on her own. Her appetite has improved some. Denies abdominal pain, nausea and vomiting. She has normal urination. OBJECTIVE: Skin: Free of rash and discoloration. ENMT: Oral/pharyngeal mucosa is normal in appearance. Eyes: Sclera is white. There is no discharge from eyes. Respiratory: Normal breath sounds. I cannot hear any rhonchi or wheezes. CV: Heart is irregularly irregular with no audible murmur. GI: Abdomen is soft and not tender. There is no palpable mass or visceromegaly. Neuro: There is no focal deficits. ADDITIONAL DATA: CT angiogram of chest from 12/24 reveals interval resolution of pulmonary embolus. It shows cavitary mass in the right lung, may represent cavitary infe ctious process versus neoplastic process. Mediastinal [place] 5 he may be reactive or neoplastic in nature. BMP is normal. ASSESSMENT AND PLAN: Cavitary pneumonia/COPD exacerbation. With acute on chronic hypoxic respiratory failure. She is on IV Zosyn/Levaquin. IV vancomycin has been discontinued.. To continue nebulizer treatments with Symbicort and Xopenex. I will substitute IV Solu-Medrol with oral prednisone. Acute on chronic diastolic heart failure. Her last echo showed preserved left ventricular ejection fraction. She got 1 dose of IV Lasix. I asked her for mild fluid restriction of 1800 mL per day. Elevated troponin. Likely secondary to hypoxia/sepsis. Chronic anemia. Stable. Disposition: The patient agreed for discharge tomorrow after lunchtime. - Exam Vitals: Temp Pulse Resp BP Pulse Ox 98 F 106 24 141/90 98 12/28/18 04:47 12/28/18 04:47 12/28/18 04:47 12/28/18 04:47 12/28/18 04:47 Exam: xx - Assessment and Plan (1) Cavitary lesion of lung Current Visit: Yes Status: Acute (2) Hospital-acquired pneumonia Current Visit: Yes Status: Acute (3) COPD (chronic obstructive pulmonary disease) with emphysema Current Visit: Yes Status: Acute (4) Acute and chronic respiratory failure with hypoxia Current Visit: No Status: Acute (5) Elevated troponin Current Visit: No Status: Acute (6) Acute on chronic diastolic heart failure Current Visit: Yes Status: Acute - Time Spent with Patient Total time spent is greater than 50% in coordination of care (as documented) at patient's floor/unit and/or counseling patient: 25 - 35 minutes Plan of Care Discussed with: patient Internal Medicine: Result - Labs CBC & Chem 7: 12/26/18 08:15 12/26/18 07:17 - ABG Interpretation ABG results: ABG ABG pH 7.46 pH Units (7.32-7.45) H 12/24/18 09:04 ABG pCO2 39 mmHg (35-45) 12/24/18 09:04 ABG pO2 73 mmHg (85-104) L 12/24/18 09:04 ABG O2 Saturation 95 % (95-98) 12/24/18 09:04 Consult Discharge Plan - Plan Referrals: Aren Malik Jr, MD [Primary Care Provider] - (3) COPD (chronic obstructive pulmonary disease) with emphysema Qualifiers: Qualified Code(s): J43.9 - Emphysema, unspecified
[2018-12-28 07:47] VITALS: BP 131/83
[2018-12-28 07:51] LABS: Basophils % 0.1 %; Hemoglobin 9.9 g/dL (11.5-15.4); Immature Granulocytes % 0.7 % (0-4); Lymphocytes # 0.6 K/mcL (0.6-4.6); Lymphocytes % 5.1 %; Mean Corpuscular HGB Conc 30.9 g/dL (31.6-35.5); Mean Corpuscular Hemoglobin 29.7 pg (28.0-33.3); Mean Corpuscular Volume 96.1 fL (83.0-100.0); Mean Platelet Volume 10.5 fL (9.4-12.4); Monocytes # 0.9 K/mcL (0.0-1.3); Monocytes % 7.1 %; Neutrophils # 10.8 K/mcL (1.6-8.9); Platelet Count 402 K/mcL (140-400); Red Blood Count 3.33 M/mcL (3.82-4.97); Red Cell Distribution Width 15.9 % (11.5-14.5)
[2018-12-28] MEDS: MethylPREDNISolone 40 MG/ML VIAL IVP SCH (09:45)
[2018-12-28] MEDS: Piperacillin/Tazobactam 3.375 GM in 0.9 % Sodium Chloride Mini Bag 100 ML IVPB SCH ×2 (09:45)
[2018-12-28] MEDS: Aspirin Enteric Coated 81 MG Tablet PO SCH (09:46)
[2018-12-28] MEDS: Ondansetron ODT 4 MG TAB.RAPDIS SL PRN (09:46)
[2018-12-28] MEDS: Furosemide 40 MG/4 ML VIAL IVP SCH (09:46)
[2018-12-28] MEDS: Lactobacillus 1 EACH CAP.SPRINK PO SCH (09:46)
[2018-12-28] MEDS: Budesonide/Formoterol 160/4.5 1 PUFF INH IH SCH (10:59)
--- NOTE | 2018-12-28 11:08 | Discharge Summary ---
Orders not resulted at time of discharge: Pending orders 12/24/18 06:27 Culture,Blood [BC] Stat Date of Encounter: 12/28/18 Time of Encounter: 10:57 - Discharge Diagnosis (1) Cavitary lesion of lung Priority: Primary Status: Acute (2) Hospital-acquired pneumonia Priority: Primary Status: Acute (3) COPD (chronic obstructive pulmonary disease) with emphysema Priority: Primary Status: Chronic Qualifiers: Qualified Code(s): J43.9 - Emphysema, unspecified (4) Acute and chronic respiratory failure with hypoxia Priority: Primary Status: Acute (5) Elevated troponin Priority: Secondary Status: Ruled-out (6) Acute on chronic diastolic heart failure Priority: Secondary Status: Acute Hospital course: HOSPITAL COURSE: The patient is a 73-year-old woman who was recently diagnosed with cavitary pneumonia; had bronchoscopy in our hospital. Was started on oral doxycycline and Augmentin by the pulmonary service. With intention to use it for 28 days. She woke up in the morning of this admission with coughing and wheezing. She has underlying Oxygen dependent COPD; uses 5 L/min of oxygen continuously. We found her to be hypoxic. It required extra oxygen. We started her on IV Solu-Medrol. We substituted her antibiotics with IV Zosyn and IV Levaquin. She basically stabilized in the next 24 hours. Consultation was obtained from the pulmonary service. They want to continue doxycycline and Augmentin after discharge. CONDITION AT DISCHARGE: She feels good. Her coughing and wheezing is baseline for her. She uses 5 L/min of nasal cannula oxygen; like before. Skin: Free of rash and discoloration. Respiratory: Normal breath sounds with no crackles and wheezes bilaterally. CV: Heart is regular with no gallop or murmur. GI: Abdomen is flat and soft with no palpable mass or visceromegaly. Neuro exam: There is no focal deficits. Normal speech, swallowing and gait. SEE DISCHARGE ORDERS/MEDICATIONS She will see her PCP in 7-10 days. She will see her appraisal specialist, as it was scheduled before (after completion of treatment with doxycycline and Augmentin). Discharge discussed with: patient, nurse, case management - Time Spent with Patient Total time spent providing and/or coordinating discharge services: Time spent: Greater than 30 minutes (40 minutes...) - Discharge Medications Prescriptions: New Benzonatate [Tessalon] 200 mg PO Q6H PRN 15 Days #30 capsule PRN Reason: Cough PredniSONE [Deltasone] 20 mg PO QAM 5 Days tablet Continued Loratadine [Claritin] 10 mg PO DAILY Citalopram [CeleXA] 20 mg PO DAILY Metoprolol [Lopressor] 25 mg PO BID Lovastatin [Mevacor] 40 mg PO HS Nitroglycerin [Nitrostat] 0.4 mg SL Q5M PRN PRN Reason: Chest Pain Albuterol Sulfate [Albuterol Inhaler] 2 puff IH Q4HR PRN #2 hfa.aer.ad PRN Reason: Shortness Of Breath/Wheezing Roflumilast [Daliresp] 500 mcg PO DAILY Budesonide/Formoterol 160/4.5 [Symbicort 160/4.5] 2 puff IH BIDR L. Acidophilus/Pectin, [place] [Acidophilus Probiotic Capsule] 1 cap PO DAILY raNITIdine HCl [Zantac] 150 mg PO BID Umeclidinium [place] [Incruse Ellipta] 2 puff IH DAILY Multivitamin [One Daily] 1 tab PO DAILY Aspirin [Lo-Dose Aspirin EC] 81 mg PO DAILY Menthol [Cough Drops] 9.1 mg PO Q2H PRN #0 lozenge PRN Reason: Cough Ipratropium/Albuterol Neb [Duoneb] 3 ml IH Q4HR PRN PRN Reason: Cough Melatonin 6 mg PO HS Amoxicillin/Clavulanate [Augmentin] 875 mg PO BIDWM 28 Days #54 tablet Doxycycline 100 mg PO BID 28 Days #54 capsule Guaifenesin [Mucinex] 600 mg PO BID PRN PRN Reason: Congestion predniSONE [PredniSONE] See Taper PO TAPER Potassium Chloride [K-Tab ER] 20 meq PO DAILY Changed Furosemide [Lasix] 40 mg PO QAM PRN #30 tablet PRN Reason: Fluid Retention Home Medications: Citalopram [CeleXA] 20 mg PO DAILY 02/05/16 [History] Loratadine [Claritin] 10 mg PO DAILY 02/05/16 [History] Lovastatin [Mevacor] 40 mg PO HS 02/05/16 [History] Metoprolol [Lopressor] 25 mg PO BID 02/05/16 [History] Nitroglycerin [Nitrostat] 0.4 mg SL Q5M PRN 02/05/16 [History] Albuterol Sulfate [Albuterol Inhaler] 2 puff IH Q4HR PRN #2 hfa.aer.ad 02/08/16 [Rx] Roflumilast [Daliresp] 500 mcg PO DAILY 11/11/18 [History] Aspirin [Lo-Dose Aspirin EC] 81 mg PO DAILY 11/12/18 [History] Budesonide/Formoterol 160/4.5 [Symbicort 160/4.5] 2 puff IH BIDR 11/12/18 [History] L. Acidophilus/Pectin, [place] [Acidophilus Probiotic Capsule] 1 cap PO DAILY 11/12/18 [History] Multivitamin [One Daily] 1 tab PO DAILY 11/12/18 [History] Umeclidinium [place] [Incruse Ellipta] 2 puff IH DAILY 11/12/18 [History] raNITIdine HCl [Zantac] 150 mg PO BID 11/12/18 [History] Menthol [Cough Drops] 9.1 mg PO Q2H PRN #0 lozenge 11/19/18 [Rx] Ipratropium/Albuterol Neb [Duoneb] 3 ml IH Q4HR PRN 12/09/18 [History] Melatonin 6 mg PO HS 12/09/18 [History] Amoxicillin/Clavulanate [Augmentin] 875 mg PO BIDWM 28 Days #54 tablet 12/16/18 [Rx] Doxycycline 100 mg PO BID 28 Days #54 capsule 12/16/18 [Rx] Guaifenesin [Mucinex] 600 mg PO BID PRN 12/24/18 [History] Potassium Chloride [K-Tab ER] 20 meq PO DAILY 12/24/18 [History] predniSONE [PredniSONE] See Taper PO TAPER 12/24/18 [History] Benzonatate [Tessalon] 200 mg PO Q6H PRN 15 Days #30 capsule 12/28/18 [Rx] Furosemide [Lasix] 40 mg PO QAM PRN #30 tablet 12/28/18 [Rx] PredniSONE [Deltasone] 20 mg PO QAM 5 Days tablet 12/28/18 [Rx] Allergies/Adverse Reactions: Allergy/AdvReac Type Severity Reaction Status Date / Time clarithromycin [From Biaxin] Allergy Gastrointestinal Verified 12/24/18 14:22 Upset codeine AdvReac See Verified 12/24/18 14:22 Comments lansoprazole [From Prevacid] AdvReac ulcer Verified 12/24/18 14:22 lisinopril AdvReac Cough Verified 12/24/18 14:22 meloxicam [From Mobic] AdvReac ulcer Verified 12/24/18 14:22 opium (anthroposophic) AdvReac nausea/vomi Verified 12/24/18 14:22 [Opium (Anthroposophic)] ting Date of admission: 12/24/18 07:50 Primary care physician: Aren Malik Jr, MD Consults: 12/24/18 07:38 Consult to Palliative Care [CONS] Routine Comment: Consulting Provider: Palliative Care [place] Reason for Consult: recurrent hospital admissions for lung infections Call Completed: No 12/24/18 08:14 Consult to Pulmonology [CONS] Routine Consulting Provider: [facility] [place] Reason for Consult: acute hypoxic respiratory failure with low threshold for intubation Call Completed: Yes 12/24/18 09:21 Consult to Nutrition [CONS] Routine Comment: Consulting Provider: NUTRITION Reason for Dietary Consult: MST Score Consult to Pastoral Services [CONS] Routine Comment: Consult to [employer] [CONS] Routine Reason for SW Consult: Has home health services and oxygen therapy. May need rehab Discharging clinician: Rey Vieyra Anticipated date of discharge: 12/28/18 - Constitutional Vitals: Temp Pulse Resp BP Pulse Ox 98 F 100 18 131/83 96 12/28/18 07:44 12/28/18 07:44 12/28/18 07:44 12/28/18 07:44 12/28/18 07:44 General appearance: Present: A&O X 3, no acute distress, answers questions appropriately Exam: xx - Patient Status Disposition: Home, Self-Care Condition: Fair Functional capacity at discharge: independent ambulation Overall status at discharge: patient is progressing back to baseline - Discharge Instructions Follow Up With: Aren Malik Jr, MD [Primary Care Provider] - 01/04/19 10:30 am (Katina Kaur is who the patient will be seeing) Additional Instructions: FOLLOW-UP WITH PCP -- IN 7-10 DAYS... FOLLOW-UP WITH DR. BATISTA (PULMONARY DISEASES) -- IN 3-4 WEEKS... - Diet and Activity Activity: increase activity as tolerated Diet: advance to your usual diet
--- NOTE | 2018-12-28 15:19 | Physician Discharge Referral ---
Home Health/Hosp Referral Info Transfer to: Home Health Attending Provider: Gerson Vieyra MD - Diagnosis (1) Cavitary lesion of lung Priority: Primary Status: Acute (2) Hospital-acquired pneumonia Priority: Primary Status: Acute (3) COPD (chronic obstructive pulmonary disease) with emphysema Priority: Secondary Status: Chronic (4) Acute on chronic diastolic heart failure Priority: Secondary Status: Acute (5) Acute and chronic respiratory failure with hypoxia Priority: Primary Status: Acute (6) Elevated troponin Priority: Primary Status: Ruled-out - Respiratory Orders Oxygen / L per min (5 l/min) Smoking Cessation: Smoking cessation has been advised. For more information, call the [employer] Quit Line at 6-399-TVXC-NOW. - Transfer Medications Prescriptions: PredniSONE [Deltasone] 20 mg PO QAM 5 Days tablet Furosemide [Lasix] 40 mg PO QAM PRN #30 tablet PRN Reason: Fluid Retention Benzonatate [Tessalon] 200 mg PO Q6H PRN 15 Days #30 capsule PRN Reason: Cough Home Medications: Citalopram [CeleXA] 20 mg PO DAILY 02/05/16 [History] Loratadine [Claritin] 10 mg PO DAILY 02/05/16 [History] Lovastatin [Mevacor] 40 mg PO HS 02/05/16 [History] Metoprolol [Lopressor] 25 mg PO BID 02/05/16 [History] Nitroglycerin [Nitrostat] 0.4 mg SL Q5M PRN 02/05/16 [History] Albuterol Sulfate [Albuterol Inhaler] 2 puff IH Q4HR PRN #2 hfa.aer.ad 02/08/16 [Rx] Roflumilast [Daliresp] 500 mcg PO DAILY 11/11/18 [History] Aspirin [Lo-Dose Aspirin EC] 81 mg PO DAILY 11/12/18 [History] Budesonide/Formoterol 160/4.5 [Symbicort 160/4.5] 2 puff IH BIDR 11/12/18 [History] L. Acidophilus/Pectin, [place] [Acidophilus Probiotic Capsule] 1 cap PO DAILY 11/12/18 [History] Multivitamin [One Daily] 1 tab PO DAILY 11/12/18 [History] Umeclidinium [place] [Incruse Ellipta] 2 puff IH DAILY 11/12/18 [History] raNITIdine HCl [Zantac] 150 mg PO BID 11/12/18 [History] Menthol [Cough Drops] 9.1 mg PO Q2H PRN #0 lozenge 11/19/18 [Rx] Ipratropium/Albuterol Neb [Duoneb] 3 ml IH Q4HR PRN 12/09/18 [History] Melatonin 6 mg PO HS 12/09/18 [History] Amoxicillin/Clavulanate [Augmentin] 875 mg PO BIDWM 28 Days #54 tablet 12/16/18 [Rx] Doxycycline 100 mg PO BID 28 Days #54 capsule 12/16/18 [Rx] Guaifenesin [Mucinex] 600 mg PO BID PRN 12/24/18 [History] Potassium Chloride [K-Tab ER] 20 meq PO DAILY 12/24/18 [History] predniSONE [PredniSONE] See Taper PO TAPER 12/24/18 [History] Benzonatate [Tessalon] 200 mg PO Q6H PRN 15 Days #30 capsule 12/28/18 [Rx] Furosemide [Lasix] 40 mg PO QAM PRN #30 tablet 12/28/18 [Rx] PredniSONE [Deltasone] 20 mg PO QAM 5 Days tablet 12/28/18 [Rx] Allergies/Adverse Reactions: Allergy/AdvReac Type Severity Reaction Status Date / Time clarithromycin [From Biaxin] Allergy Gastrointestinal Verified 12/24/18 14:22 Upset codeine AdvReac See Verified 12/24/18 14:22 Comments lansoprazole [From Prevacid] AdvReac ulcer Verified 12/24/18 14:22 lisinopril AdvReac Cough Verified 12/24/18 14:22 meloxicam [From Mobic] AdvReac ulcer Verified 12/24/18 14:22 opium (anthroposophic) AdvReac nausea/vomi Verified 12/24/18 14:22 [Opium (Anthroposophic)] ting Certification: Further, I certify that my clinical findings support that this patient is homebound (i.e. absences from home require considerable and taxing effort and are for medical reasons or sabianist services or infrequently or short duration when for other reasons) because: Homebound Reason: Patient requires assistance of a person or device to safely leave home Attestation: My signature below is to certify that this patient is under my care and that I, or nurse practitioner, or a physician's manufacturing assistant working with me, has a [id number] encounter with this patient.
== END 2018-12-28 13:45 | disposition home or self-care (01) | DRG 193 ==
LOC: EMEROOARM 05:41 → SUATTDRO 07:50 → 2ANU 07:50 → 2SOUTHHOLD 07:55 → 2NENU 18:16
PROVIDERS: ADMIT Student in an Organized Health Care Education/Training Program; ATTEND Internal Medicine

== ENCOUNTER 2019-02-10 16:42 | Inpatient (IN) ==
[2019-02-10] MEDS ORDERED: Ipratropium/Albuterol Neb 3 ML IH ONE (17:14)
[2019-02-10] MEDS ORDERED: methylPREDNISolone 125 MG/2 ML VIAL IVP ONE (17:14)
--- NOTE | 2019-02-10 17:20 | Emergency Department Note ---
Disposition Clinical Impression: Lesion of lung COPD (chronic obstructive pulmonary disease) Qualifiers: COPD type: chronic bronchitis Chronic bronchitis type: unspecified Qualified Code(s): J42 - Unspecified chronic bronchitis Pneumonia Qualifiers: Pneumonia type: due to unspecified organism Laterality: bilateral Lung location: unspecified part of lung Qualified Code(s): J18.9 - Pneumonia, unspecified organism Disposition: Admitted As Inpatient Condition: Fair Time of Disposition: 21:12 SOB HPI - General Chief Complaint: ED Shortness of Breath/Dyspnea Stated Complaint: UZAIR Time Seen by Provider: 02/10/19 17:11 Source: patient, family Mode of arrival: ambulatory Limitations: no limitations Nursing Notes Reviewed: Yes Vital Signs Reviewed: Yes - History of Present Illness 73-year-old female past medical history of COPD and CHF presenting for 2 days of gradually progressive and worsening generalized weakness, dyspnea, cough productive of green sputum, and chest discomfort. Patient states this is similar to her previous exacerbations of both CHF and COPD. Patient has required ICU admission in the past but denies having been intubated. Patient's familiar with BiPAP and is agreeable to this if this decision should be made. Pt Subjective Complaint: shortness of breath Onset (ago): day(s) Severity: moderate Consistency/Duration: gradually worsening Improves with: oxygen, bronchodilators, upright position Worsens with: exertion Known history of: COPD, congestive heart failure Associated symptoms: Reports: chest pain, cough, sputum production Treatment prior to arrival: bronchodilator Cough present: Yes Sputum Amount: Small Sputum Color: Green - Related Data Home oxygen amount: other (5 L) Home Medications Medication Instructions Recorded Confirmed Citalopram [CeleXA] 20 mg PO DAILY 02/05/16 02/10/19 Loratadine [Claritin] 10 mg PO DAILY 02/05/16 02/10/19 Lovastatin [Mevacor] 40 mg PO HS 02/05/16 02/10/19 Metoprolol [Lopressor] 25 mg PO BID 02/05/16 02/10/19 Nitroglycerin [Nitrostat] 0.4 mg SL Q5M PRN 02/05/16 02/10/19 Roflumilast [Daliresp] 500 mcg PO DAILY 11/11/18 02/10/19 Aspirin [Lo-Dose Aspirin EC] 81 mg PO DAILY 11/12/18 02/10/19 Budesonide/Formoterol 160/4.5 2 puff IH BIDR 11/12/18 02/10/19 [Symbicort 160/4.5] L. Acidophilus/Pectin, [place] 1 cap PO DAILY 11/12/18 02/10/19 [Acidophilus Probiotic Capsule] Multivitamin [One Daily] 1 tab PO DAILY 11/12/18 02/10/19 Umeclidinium [place] [Incruse 2 puff IH DAILY 11/12/18 02/10/19 Ellipta] raNITIdine HCl [Zantac] 150 mg PO BID 11/12/18 02/10/19 Ipratropium/Albuterol Neb [Duoneb] 3 ml IH Q4HR PRN 12/09/18 02/10/19 Melatonin 6 mg PO HS 12/09/18 02/10/19 Guaifenesin [Mucinex] 600 mg PO BID PRN 12/24/18 02/10/19 Potassium Chloride [K-Tab ER] 20 meq PO DAILY 12/24/18 02/10/19 predniSONE [PredniSONE] See Taper PO TAPER 12/24/18 02/10/19 Previous Rx's Medication Instructions Recorded Albuterol Sulfate [Albuterol 2 puff IH Q4HR PRN #2 hfa.aer.ad 02/08/16 Inhaler] Menthol [Cough Drops] 9.1 mg PO Q2H PRN #0 lozenge 11/19/18 Furosemide [Lasix] 40 mg PO QAM PRN #30 tablet 12/28/18 Allergies Allergy/AdvReac Type Severity Reaction Status Date / Time clarithromycin [From Biaxin] Allergy Gastrointestinal Verified 12/24/18 14:22 Upset codeine AdvReac See Verified 12/24/18 14:22 Comments lansoprazole [From Prevacid] AdvReac ulcer Verified 12/24/18 14:22 lisinopril AdvReac Cough Verified 12/24/18 14:22 meloxicam [From Mobic] AdvReac ulcer Verified 12/24/18 14:22 opium (anthroposophic) AdvReac nausea/vomi Verified 12/24/18 14:22 [Opium (Anthroposophic)] ting Review of Systems: *See History of Present Illness for more detail Constitutional: Denies: fever, chills Cardiovascular: Patient admits to a nagging chest discomfort but denies overt chest pain. Respiratory: Admits: dyspnea, cough productive of greenish sputum. denies hemoptysis Gastrointestinal: Denies: abdominal pain, nausea, vomiting, diarrhea, constipation, hematemesis, melena, hematochezia Genitourinary: Denies: hematuria Musculoskeletal: Denies: back pain, neck pain Neurological: Denies: headache, weakness, lightheadedness/dizziness, numbness, paresthesias, difficulty with ambulation. Endocrine: Admits fatigue All systems ED: reviewed and negative except as stated. Review of Systems: As Per [facility] Past Medical History - Past Medical History Medical history: Reports: CHF, COPD, hypertension Surgical history: Reports: angioplasty/stent, breast surgery, cholecystectomy, hysterectomy, orthopedic, other, other Psychiatric history: Reports: anxiety - Social History Smoking Status: Former smoker Smokeless Tobacco Status: No Alcohol use: Reports: none Drug use: Reports: none Physical Exam Constitutional: No acute distress, [id number], engaged to conversation, speech is fluid, answers questions appropriately Neuro: GCS 15, no overt focal neurological deficits Head: Atraumatic, normocephalic Eyes: Pupils equal, round and reactive to light, no scleral icterus, no conjunctival injection Neck: Trachea midline without deviation. Anterior neck is supple without swelling. *Chest: Symmetric chest wall rise *Heart: Cardiac rhythm and rate are regular with S1 and S2 , no S3 or S4 appreciated, no murmurs, gallops, rubs, or clicks. *Lungs: Lungs are clear to auscultation bilaterally, without accessory muscle use or prolonged expiratory phase. No wheezes, rhonchi or stridor appreciated. Abdomen: Abdomen is flat, soft to palpation, normal bowel sounds. No abdominal bruit auscultated. Non-distended, non-rigid, no organomegaly, no ascites appreciated. No pulsatile mass, no tenderness or guarding to palpation in all four quadrants, no rebound Extremities: Normal capillary refill without evidence of pedal edema, joint swelling or erythema. Pulses/motor/sensory intact in all 4 extremities. Psychiatric exam: Patient displays a normal affect and mood for the environment. No overt signs of hallucination. Integumentary: warm, dry, intact, normal color. No rash, cyanosis, diaphoresis, erythema, or pallor - General Limitations: no limitations General appearance: alert, in no apparent distress Course Course Narrative: DuoNeb steroids for the management of patient's symptoms Ceftriaxone Levaquin for spectrum antibiotic coverage X-ray chest, labs, troponin, EKG, BNP, d-dimer - Reevaluation(s) Reevaluation #1: Elevated d-dimer will obtain CT at this time Vital Signs Temperature 97.5 F L 02/10/19 16:49 Pulse Rate 117 02/10/19 16:49 Respiratory Rate 26 02/10/19 16:49 Blood Pressure 132/73 02/10/19 16:49 O2 Sat by Pulse Oximetry 87 02/10/19 16:49 Temperature 97.5 F L 02/10/19 16:57 Pulse Rate 124 02/10/19 18:47 Respiratory Rate 24 02/10/19 21:04 Blood Pressure 120/80 02/10/19 21:04 O2 Sat by Pulse Oximetry 100 02/10/19 18:47 Oxygen Delivery Oxygen Delivery Nasal Cannula Shortness of Breath/Dyspnea - MDM Narrative Medical decision making narrative: Patient imaging shows concern for bilateral lower lobe pneumonia Elevated white count No other acute pathology identified. Patient did hospitals medicine service for further evaluation and management of COPD exacerbation and pneumonia. Patient and family at bedside verbalized their understanding and agreement with this plan. - Lab Data Lab results reviewed: Yes I reviewed the patient's lab results. Result diagrams: 02/10/19 17:14 02/10/19 17:14 Lab Results 02/10/19 02/10/19 02/10/19 Range/Units 17:14 17:14 17:14 WBC 14.5 H (4.3-11.1) K/mcL RBC 3.62 L (3.82-4.97) M/mcL Hgb 10.7 L (11.5-15.4) g/dL Hct 34.0 L (35.3-44.9) % MCV 93.9 (83.0-100.0) fL MCH 29.6 (28.0-33.3) pg MCHC 31.5 L (31.6-35.5) g/dL RDW 16.1 H (11.5-14.5) % Plt Count 448 H (140-400) K/mcL MPV 10.4 (9.4-12.4) fL Immature Gran % 0.7 (0-4) % Seg Neutrophils % 72.5 % Lymphocytes % 15.1 % Monocytes % 10.7 % Eosinophils % 0.8 % Basophils % 0.2 % Neutrophils # 10.6 H (1.6-8.9) K/mcL Lymphocytes # 2.2 (0.6-4.6) K/mcL Monocytes # 1.6 H (0.0-1.3) K/mcL Eosinophils # 0.1 (0.0-0.6) K/mcL Basophils # 0.0 (0.0-0.2) K/mcL D-Dimer 967 H (0-500) ng/mLFEU Sample Site ABG pH (7.32-7.45) pH Units ABG pCO2 (35-45) mmHg ABG pO2 (85-104) mmHg ABG HCO3 (21-27) mEq/L ABG Total CO2 (20-26) mEq/L ABG O2 Saturation (95-98) % ABG Base Excess (-2 to 3) mEq/L Nicolas Test O2 Delivery Device Inspired O2 (1-15=lpm [id number]=%) Sodium 132 L (136-145) mEq/L Potassium 4.7 (3.5-5.1) mEq/L Chloride 98 (98-107) mEq/L Carbon Dioxide 26 (23-29) mEq/L BUN 21 (8-23) mg/dL Creatinine 0.60 (0.60-1.20) mg/dL Est GFR ( Amer) > 60 (> 60) Est GFR (Non-Af Amer) > 60 (> 60) BUN/Creatinine Ratio 35 H (6-26) Glucose 112 H (70-105) mg/dL Calculated Osmolality 278 L (280-300) Lactic Acid (0.5-2.2) mmol/L Calcium 10.5 H (8.6-10.3) mg/dL Troponin I 0.03 (< 0.04) ng/mL B-Natriuretic Peptide (Less than 100) pg/mL 02/10/19 02/10/19 02/10/19 Range/Units 17:14 17:34 17:36 WBC (4.3-11.1) K/mcL RBC (3.82-4.97) M/mcL Hgb (11.5-15.4) g/dL Hct (35.3-44.9) % MCV (83.0-100.0) fL MCH (28.0-33.3) pg MCHC (31.6-35.5) g/dL RDW (11.5-14.5) % Plt Count (140-400) K/mcL MPV (9.4-12.4) fL Immature Gran % (0-4) % Seg Neutrophils % % Lymphocytes % % Monocytes % % Eosinophils % % Basophils % % Neutrophils # (1.6-8.9) K/mcL Lymphocytes # (0.6-4.6) K/mcL Monocytes # (0.0-1.3) K/mcL Eosinophils # (0.0-0.6) K/mcL Basophils # (0.0-0.2) K/mcL D-Dimer (0-500) ng/mLFEU Sample Site R Radial ABG pH 7.48 H (7.32-7.45) pH Units ABG pCO2 35 (35-45) mmHg ABG pO2 69 L (85-104) mmHg ABG HCO3 26 (21-27) mEq/L ABG Total CO2 27 H (20-26) mEq/L ABG O2 Saturation 95 (95-98) % ABG Base Excess 3 (-2 to 3) mEq/L Nicolas Test Positive O2 Delivery Device Cannula Inspired O2 40.0 (1-15=lpm ic65-285=%) Sodium (136-145) mEq/L Potassium (3.5-5.1) mEq/L Chloride (98-107) mEq/L Carbon Dioxide (23-29) mEq/L BUN (8-23) mg/dL Creatinine (0.60-1.20) mg/dL Est GFR ( Amer) (> 60) Est GFR (Non-Af Amer) (> 60) BUN/Creatinine Ratio (6-26) Glucose (70-105) mg/dL Calculated Osmolality (280-300) Lactic Acid 2.4 H (0.5-2.2) mmol/L Calcium (8.6-10.3) mg/dL Troponin I (< 0.04) ng/mL B-Natriuretic Peptide 431 H (Less than 100) pg/mL 02/10/19 Range/Units 19:30 WBC (4.3-11.1) K/mcL RBC (3.82-4.97) M/mcL Hgb (11.5-15.4) g/dL Hct (35.3-44.9) % MCV (83.0-100.0) fL MCH (28.0-33.3) pg MCHC (31.6-35.5) g/dL RDW (11.5-14.5) % Plt Count (140-400) K/mcL MPV (9.4-12.4) fL Immature Gran % (0-4) % Seg Neutrophils % % Lymphocytes % % Monocytes % % Eosinophils % % Basophils % % Neutrophils # (1.6-8.9) K/mcL Lymphocytes # (0.6-4.6) K/mcL Monocytes # (0.0-1.3) K/mcL Eosinophils # (0.0-0.6) K/mcL Basophils # (0.0-0.2) K/mcL D-Dimer (0-500) ng/mLFEU Sample Site ABG pH (7.32-7.45) pH Units ABG pCO2 (35-45) mmHg ABG pO2 (85-104) mmHg ABG HCO3 (21-27) mEq/L ABG Total CO2 (20-26) mEq/L ABG O2 Saturation (95-98) % ABG Base Excess (-2 to 3) mEq/L Nicolas Test O2 Delivery Device Inspired O2 (1-15=lpm th58-537=%) Sodium (136-145) mEq/L Potassium (3.5-5.1) mEq/L Chloride (98-107) mEq/L Carbon Dioxide (23-29) mEq/L BUN (8-23) mg/dL Creatinine (0.60-1.20) mg/dL Est GFR ( Amer) (> 60) Est GFR (Non-Af Amer) (> 60) BUN/Creatinine Ratio (6-26) Glucose (70-105) mg/dL Calculated Osmolality (280-300) Lactic Acid 1.2 (0.5-2.2) mmol/L Calcium (8.6-10.3) mg/dL Troponin I (< 0.04) ng/mL B-Natriuretic Peptide (Less than 100) pg/mL - Radiology Data Radiology results reviewed: Yes I reviewed the patient's radiology results. Chest X-Ray 02/10/19 17:15 IMPRESSION: Background emphysematous changes. Superimposed right greater than left bibasilar airspace opacities and trace bilateral pleural effusions. Findings may reflect pneumonia and/or edema. D/ / 02/10/2019 17:39:43 Audrey Justin MD / nick Interpreting Provider: Audrey Justin MD Chest CTA 02/10/19 18:22 IMPRESSION: No evidence of acute pulmonary embolism. Enlarged main pulmonary artery suggestive of chronic pulmonary hypertension. Interval increase in bibasilar pulmonary opacities, right greater than left. Findings may represent aspiration, and/or pneumonia. Trace pericardial effusion versus pericardial thickening. Cardiomegaly. Redemonstration of a cavitary lesion within right lower lobe, with air-fluid levels. This appears reasonably similar to previous examination accounting for differences in technique. Possibility of cavitary neoplasm should be excluded. Similar appearance of extensive changes of pulmonary fibrosis, bronchiectasis, and architectural distortion. Mild right hilar lymphadenopathy. No significant left hilar lymphadenopathy. RECOMMENDATIONS: Follow-up chest CT in three months. D/ / 02/10/2019 19:47:33 Bob Justin MD / santiago Interpreting Provider: Bob Justin MD - EKG Data EKG attestation: Yes I reviewed and interpreted this EKG. EKG results narrative: Patient EKG shows sinus tachycardia with left anterior fascicular block with a heart of 116 bpm, VT interval of 147 ms, QR [facility] of 104 ms, QT/QTc interval of 337/469 ms respectively. There are no significant ST segment elevations, depressions, pathologic Q waves, abnormal T-wave inversions, or any other signs of acute skin change. EKG performed today is generally consistent with prior EKG performed on 12/24/2018. Attestation Statement - Attestation Attestation: I, Deejay Pickard DO, examined this patient [id number] and my medical decision-making was reviewed with Dr. Jared Boyce, Resident Physician. I agree with the documented findings, disposition and treatment plan as described except to the extent set forth below. I personally supervised and was present for the almaraz/critical portions of the procedures completed by the resident documented below. Please see my progress notes for details.
[2019-02-10 17:41] LABS: Basophils % 0.2 %; Eosinophils # 0.1 K/mcL (0.0-0.6); Eosinophils % 0.8 %; Hemoglobin 10.7 g/dL (11.5-15.4); Immature Granulocytes % 0.7 % (0-4); Lymphocytes # 2.2 K/mcL (0.6-4.6); Lymphocytes % 15.1 %; Mean Corpuscular HGB Conc 31.5 g/dL (31.6-35.5); Mean Corpuscular Hemoglobin 29.6 pg (28.0-33.3); Mean Corpuscular Volume 93.9 fL (83.0-100.0); Mean Platelet Volume 10.4 fL (9.4-12.4); Monocytes # 1.6 K/mcL (0.0-1.3); Monocytes % 10.7 %; Neutrophils # 10.6 K/mcL (1.6-8.9); Platelet Count 448 K/mcL (140-400); Red Blood Count 3.62 M/mcL (3.82-4.97); Red Cell Distribution Width 16.1 % (11.5-14.5); Segmented Neutrophils % 72.5 %; White Blood Count 14.5 K/mcL (4.3-11.1)
[2019-02-10 17:46] LABS: ABG Base Excess 3 mEq/L (-2 to 3); ABG HCO3 26 mEq/L (21-27); ABG Oxygen Saturation 95 % (95-98); ABG PCO2 35 mmHg (35-45); ABG PH 7.48 pH Units (7.32-7.45); ABG PO2 69 mmHg (85-104); ABG TCO2 27 mEq/L (20-26)
[2019-02-10 17:57] LABS: BUN/Creatinine Ratio 35 (6-26); Blood Urea Nitrogen 21 mg/dL (8-23); Calcium 10.5 mg/dL (8.6-10.3); Carbon Dioxide 26 mEq/L (23-29); Chloride 98 mEq/L (98-107); Glucose 112 mg/dL (70-105); Osmolality,Calculated 278 (280-300); Potassium 4.7 mEq/L (3.5-5.1); Sodium 132 mEq/L (136-145); Troponin I 0.03 ng/mL (< 0.04); eGFR For African Americans > 60 (> 60); eGFR For Non-African Americans > 60 (> 60)
[2019-02-10] MEDS ORDERED: 0.9 % Sodium Chloride 1,000 ML IVC ONE (18:15)
--- NOTE | 2019-02-10 18:21 | Emergency Department Note ---
Disposition Clinical Impression: COPD (chronic obstructive pulmonary disease), Pneumonia, Lesion of lung Disposition: Admitted As Inpatient Condition: Fair Referrals: Aren Malik Jr, MD [Primary Care Provider] - Forms: ED Satisfaction Letter Time of Disposition: 20:14 General Adult HPI - General Chief complaint: ED Shortness of Breath/Dyspnea Stated complaint: UZAIR Time Seen by Provider: 02/10/19 17:11 Source: patient, family Mode of arrival: ambulatory Limitations: no limitations - History of Present Illness Pain Scale: 0 - Related Data Home Medications Medication Instructions Recorded Confirmed Citalopram [CeleXA] 20 mg PO DAILY 02/05/16 12/24/18 Loratadine [Claritin] 10 mg PO DAILY 02/05/16 12/24/18 Lovastatin [Mevacor] 40 mg PO HS 02/05/16 12/24/18 Metoprolol [Lopressor] 25 mg PO BID 02/05/16 12/24/18 Nitroglycerin [Nitrostat] 0.4 mg SL Q5M PRN 02/05/16 12/24/18 Roflumilast [Daliresp] 500 mcg PO DAILY 11/11/18 12/24/18 Aspirin [Lo-Dose Aspirin EC] 81 mg PO DAILY 11/12/18 12/24/18 Budesonide/Formoterol 160/4.5 2 puff IH BIDR 11/12/18 12/24/18 [Symbicort 160/4.5] L. Acidophilus/Pectin, [place] 1 cap PO DAILY 11/12/18 12/24/18 [Acidophilus Probiotic Capsule] Multivitamin [One Daily] 1 tab PO DAILY 11/12/18 12/24/18 Umeclidinium [place] [Incruse 2 puff IH DAILY 11/12/18 12/24/18 Ellipta] raNITIdine HCl [Zantac] 150 mg PO BID 11/12/18 12/24/18 Ipratropium/Albuterol Neb [Duoneb] 3 ml IH Q4HR PRN 12/09/18 12/24/18 Melatonin 6 mg PO HS 12/09/18 12/24/18 Guaifenesin [Mucinex] 600 mg PO BID PRN 12/24/18 12/24/18 Potassium Chloride [K-Tab ER] 20 meq PO DAILY 12/24/18 12/24/18 predniSONE [PredniSONE] See Taper PO TAPER 12/24/18 12/24/18 Previous Rx's Medication Instructions Recorded Albuterol Sulfate [Albuterol 2 puff IH Q4HR PRN #2 hfa.aer.ad 02/08/16 Inhaler] Menthol [Cough Drops] 9.1 mg PO Q2H PRN #0 lozenge 11/19/18 Furosemide [Lasix] 40 mg PO QAM PRN #30 tablet 12/28/18 Allergies Allergy/AdvReac Type Severity Reaction Status Date / Time clarithromycin [From Biaxin] Allergy Gastrointestinal Verified 12/24/18 14:22 Upset codeine AdvReac See Verified 12/24/18 14:22 Comments lansoprazole [From Prevacid] AdvReac ulcer Verified 12/24/18 14:22 lisinopril AdvReac Cough Verified 12/24/18 14:22 meloxicam [From Mobic] AdvReac ulcer Verified 12/24/18 14:22 opium (anthroposophic) AdvReac nausea/vomi Verified 12/24/18 14:22 [Opium (Anthroposophic)] ting Past Medical History - Past Medical History Medical history: Reports: CHF, COPD, hypertension Surgical history: Reports: angioplasty/stent, breast surgery, cholecystectomy, hysterectomy, orthopedic, other, other Psychiatric history: Reports: anxiety - Social History Smoking Status: Former smoker Smokeless Tobacco Status: No Alcohol use: Reports: none Drug use: Reports: none Physical Exam - General Limitations: no limitations General appearance: alert, in no apparent distress Course Vital Signs Temperature 97.5 F L 02/10/19 16:49 Pulse Rate 117 02/10/19 16:49 Respiratory Rate 26 02/10/19 16:49 Blood Pressure 132/73 02/10/19 16:49 O2 Sat by Pulse Oximetry 87 02/10/19 16:49 Temperature 97.5 F L 02/10/19 16:57 Pulse Rate 124 02/10/19 18:47 Respiratory Rate 28 02/10/19 18:47 Blood Pressure 94/45 02/10/19 18:47 O2 Sat by Pulse Oximetry 100 02/10/19 18:47 Oxygen Delivery Oxygen Delivery Nasal Cannula Medical Decision Making - Lab Data Result diagrams: 02/10/19 17:14 02/10/19 17:14 Lab Results 02/10/19 02/10/19 02/10/19 Range/Units 17:14 17:14 17:14 WBC 14.5 H (4.3-11.1) K/mcL RBC 3.62 L (3.82-4.97) M/mcL Hgb 10.7 L (11.5-15.4) g/dL Hct 34.0 L (35.3-44.9) % MCV 93.9 (83.0-100.0) fL MCH 29.6 (28.0-33.3) pg MCHC 31.5 L (31.6-35.5) g/dL RDW 16.1 H (11.5-14.5) % Plt Count 448 H (140-400) K/mcL MPV 10.4 (9.4-12.4) fL Immature Gran % 0.7 (0-4) % Seg Neutrophils % 72.5 % Lymphocytes % 15.1 % Monocytes % 10.7 % Eosinophils % 0.8 % Basophils % 0.2 % Neutrophils # 10.6 H (1.6-8.9) K/mcL Lymphocytes # 2.2 (0.6-4.6) K/mcL Monocytes # 1.6 H (0.0-1.3) K/mcL Eosinophils # 0.1 (0.0-0.6) K/mcL Basophils # 0.0 (0.0-0.2) K/mcL D-Dimer 967 H (0-500) ng/mLFEU Sample Site ABG pH (7.32-7.45) pH Units ABG pCO2 (35-45) mmHg ABG pO2 (85-104) mmHg ABG HCO3 (21-27) mEq/L ABG Total CO2 (20-26) mEq/L ABG O2 Saturation (95-98) % ABG Base Excess (-2 to 3) mEq/L Nicolas Test O2 Delivery Device Inspired O2 (1-15=lpm [id number]=%) Sodium 132 L (136-145) mEq/L Potassium 4.7 (3.5-5.1) mEq/L Chloride 98 (98-107) mEq/L Carbon Dioxide 26 (23-29) mEq/L BUN 21 (8-23) mg/dL Creatinine 0.60 (0.60-1.20) mg/dL Est GFR ( Amer) > 60 (> 60) Est GFR (Non-Af Amer) > 60 (> 60) BUN/Creatinine Ratio 35 H (6-26) Glucose 112 H (70-105) mg/dL Calculated Osmolality 278 L (280-300) Lactic Acid (0.5-2.2) mmol/L Calcium 10.5 H (8.6-10.3) mg/dL Troponin I 0.03 (< 0.04) ng/mL B-Natriuretic Peptide (Less than 100) pg/mL 02/10/19 02/10/19 02/10/19 Range/Units 17:14 17:34 17:36 WBC (4.3-11.1) K/mcL RBC (3.82-4.97) M/mcL Hgb (11.5-15.4) g/dL Hct (35.3-44.9) % MCV (83.0-100.0) fL MCH (28.0-33.3) pg MCHC (31.6-35.5) g/dL RDW (11.5-14.5) % Plt Count (140-400) K/mcL MPV (9.4-12.4) fL Immature Gran % (0-4) % Seg Neutrophils % % Lymphocytes % % Monocytes % % Eosinophils % % Basophils % % Neutrophils # (1.6-8.9) K/mcL Lymphocytes # (0.6-4.6) K/mcL Monocytes # (0.0-1.3) K/mcL Eosinophils # (0.0-0.6) K/mcL Basophils # (0.0-0.2) K/mcL D-Dimer (0-500) ng/mLFEU Sample Site R Radial ABG pH 7.48 H (7.32-7.45) pH Units ABG pCO2 35 (35-45) mmHg ABG pO2 69 L (85-104) mmHg ABG HCO3 26 (21-27) mEq/L ABG Total CO2 27 H (20-26) mEq/L ABG O2 Saturation 95 (95-98) % ABG Base Excess 3 (-2 to 3) mEq/L Nicolas Test Positive O2 Delivery Device Cannula Inspired O2 40.0 (1-15=lpm [id number]=%) Sodium (136-145) mEq/L Potassium (3.5-5.1) mEq/L Chloride (98-107) mEq/L Carbon Dioxide (23-29) mEq/L BUN (8-23) mg/dL Creatinine (0.60-1.20) mg/dL Est GFR ( Amer) (> 60) Est GFR (Non-Af Amer) (> 60) BUN/Creatinine Ratio (6-26) Glucose (70-105) mg/dL Calculated Osmolality (280-300) Lactic Acid 2.4 H (0.5-2.2) mmol/L Calcium (8.6-10.3) mg/dL Troponin I (< 0.04) ng/mL B-Natriuretic Peptide 431 H (Less than 100) pg/mL 02/10/19 Range/Units 19:30 WBC (4.3-11.1) K/mcL RBC (3.82-4.97) M/mcL Hgb (11.5-15.4) g/dL Hct (35.3-44.9) % MCV (83.0-100.0) fL MCH (28.0-33.3) pg MCHC (31.6-35.5) g/dL RDW (11.5-14.5) % Plt Count (140-400) K/mcL MPV (9.4-12.4) fL Immature Gran % (0-4) % Seg Neutrophils % % Lymphocytes % % Monocytes % % Eosinophils % % Basophils % % Neutrophils # (1.6-8.9) K/mcL Lymphocytes # (0.6-4.6) K/mcL Monocytes # (0.0-1.3) K/mcL Eosinophils # (0.0-0.6) K/mcL Basophils # (0.0-0.2) K/mcL D-Dimer (0-500) ng/mLFEU Sample Site ABG pH (7.32-7.45) pH Units ABG pCO2 (35-45) mmHg ABG pO2 (85-104) mmHg ABG HCO3 (21-27) mEq/L ABG Total CO2 (20-26) mEq/L ABG O2 Saturation (95-98) % ABG Base Excess (-2 to 3) mEq/L Nicolas Test O2 Delivery Device Inspired O2 (1-15=lpm [id number]=%) Sodium (136-145) mEq/L Potassium (3.5-5.1) mEq/L Chloride (98-107) mEq/L Carbon Dioxide (23-29) mEq/L BUN (8-23) mg/dL Creatinine (0.60-1.20) mg/dL Est GFR ( Amer) (> 60) Est GFR (Non-Af Amer) (> 60) BUN/Creatinine Ratio (6-26) Glucose (70-105) mg/dL Calculated Osmolality (280-300) Lactic Acid 1.2 (0.5-2.2) mmol/L Calcium (8.6-10.3) mg/dL Troponin I (< 0.04) ng/mL B-Natriuretic Peptide (Less than 100) pg/mL Attestation Statement - Attestation Attestation: I, Deejay Pickard DO, examined this patient [id number] and my medical decision-making was reviewed with Dr. Jared Boyce, Resident Physician. I agree with the documented findings, disposition and treatment plan as described except to the extent set forth below. I personally supervised and was present for the almaraz/critical portions of the procedures completed by the resident documented below. Please see my progress notes for details. 73-year-old female presents emergency room with complaint of increased work of breathing and shortness of breath. Patient is a long-standing history of COPD and emphysema. She is required admission and airway management several times in the past. She denies any recent fevers or chills. She has had a productive cough. Denies any nausea vomiting or diarrhea. Currently denying headache or vision change. She has not had any chest pain during these events. She has not traveled outside the country. She continues to use her home medications as they are prescribed. Patient is otherwise been doing well up until her breathing started to decline over the last several days. Vital signs show elevated heart rate tachypnea and hypoxia on initial presentation. She was placed on oxygen and brought back to the bed. She is sitting upright in the bed using accessory muscles to breathe. She has significantly diminished breath sounds bilaterally. Heart is regular but tachycardic. Abdomen is soft but nonpulsatile presentation. No guarding no rigidity no peritoneal symptoms noted on exam. Extremities otherwise normal. No signs of pitting edema or swelling. Pulses are intact. Patient is mentating appropriately. EKG chest x-ray CBC chemistry troponin and BNP will be completed here at this time. Treatments and steroids will be ordered. Lactic acid and blood cultures will be added on secondary to the concern for the COPD exacerbation. Patient will most likely require admission after the workup and treatment course have been completed. Disposition to be determined. Patient is otherwise stable. EKG was reviewed by myself in documented in the resident physician's note. No other critical care by the patient's treatment course. See detailed documentation of the physical exam, medical intervention, medical decision-making and disposition in the resident physician's note. 1814 Patient has a lactic acid 2.4. CT angiography of the chest is still pending. D-dimer is elevated. Antibiotic regimen including Rocephin and Levaquin of been ordered along with fluids. Patient does not show any acute signs of septic shock but is concerning for infectious etiology guarding the COPD exacerbation. 1999 CT angiography the chest does not show any acute signs pulmonary emboli. Cavitary neoplasm versus infection is concerning in the right lower lung base. The findings are similar to previous but progressing. Patient is been responding to appropriate treatments here. She is otherwise doing better. Hospitalist Dr. Leon has reviewed the case. No other recommendations or concerns at this time. He is otherwise clinically stable. Patient will be monitored here in the emergency department until admission process is completed for possible pneumonia and COPD exacerbation. Patient and the family are informed. No other concerns or issues.
[2019-02-10] MEDS ORDERED: Isovue-370 500 ML BOTTLE IVP ONE (18:22)
[2019-02-10] MEDS: levoFLOXacin 750 MG/150 ML 750 MG/150 ML BAG IVPB SCH (18:44)
[2019-02-10] MEDS ORDERED: cefTRIAXone 2,000 MG in Water for inj. (sterile) 20 ML IVP SCH (19:00)
[2019-02-10] MEDS ORDERED: Naloxone 0.4 MG/ML INJ IVP PRN (21:37)
--- NOTE | 2019-02-10 21:56 | Internal Med History&Physical ---
Date of Encounter: 02/10/19 Time of Encounter: 21:52 Internal Medicine - H&P: HPI Chief complaint: Shortness of breath Admitted From: Emergency Dept Plans for Post Hospital Care: Home History of present illness: Ms. Peck is a 73 year old female with history of severe COPD with emphysema, cavitary lung lesion presents with increasing shortness of breath and cough. Patient states that her symptoms have been progressive over the last couple days. She states this feels similar to previous episodes that have required hospitalization. She reports increasing cough with sputum production that is productive with yellow-green sputum with occasional streaks of blood. She reports subjective fevers and chills. She states breathing treatments seemed to help a little bit. She feels her symptoms have been worsening with time. She states she has currently been seeing a lung doctor for a known cavitary lung lesion has also been following with infectious disease. She denies abdominal pain, chest pain, nausea, vomiting. Discussed with patient who wishes to be DNR [facility] Past Med Surg Social Fam HX - Past Medical History Medical history: CHF, COPD, hypertension Additional medical history: mitral valve prolapse Psychiatric history: anxiety - Past Surgical History Surgical History: angioplasty/stent, breast surgery, cholecystectomy, hysterectomy, orthopedic, other, other Additional surgical history: left breast. back surgery. EGD. 2 heart stents. - Social History Smoking Status: Former smoker Smokeless Tobacco Status: No Alcohol use: none Drug use: none - Family History Brother Living Status: Hx Family Cardiac Disorders: Yes Mother Living Status: Hx Family Cardiac Disorders: Yes ("artery disease", CHF) Hx Family GI Disorders: Yes (ulcers) Hx Family Endocrine Disorder: Yes Father Living Status: Hx Family Cardiac Disorders: Yes ("valve problems") Internal Medicine - H&P: Meds Citalopram [CeleXA] 20 mg PO DAILY 02/05/16 [History] Loratadine [Claritin] 10 mg PO DAILY 02/05/16 [History] Lovastatin [Mevacor] 40 mg PO HS 02/05/16 [History] Metoprolol [Lopressor] 25 mg PO BID 02/05/16 [History] Nitroglycerin [Nitrostat] 0.4 mg SL Q5M PRN 02/05/16 [History] Albuterol Sulfate [Albuterol Inhaler] 2 puff IH Q4HR PRN #2 hfa.aer.ad 02/08/16 [Rx] Roflumilast [Daliresp] 500 mcg PO DAILY 11/11/18 [History] Aspirin [Lo-Dose Aspirin EC] 81 mg PO DAILY 11/12/18 [History] Budesonide/Formoterol 160/4.5 [Symbicort 160/4.5] 2 puff IH BIDR 11/12/18 [History] L. Acidophilus/Pectin, [place] [Acidophilus Probiotic Capsule] 1 cap PO DAILY 11/12/18 [History] Multivitamin [One Daily] 1 tab PO DAILY 11/12/18 [History] Umeclidinium [place] [Incruse Ellipta] 2 puff IH DAILY 11/12/18 [History] raNITIdine HCl [Zantac] 150 mg PO BID 11/12/18 [History] Menthol [Cough Drops] 9.1 mg PO Q2H PRN #0 lozenge 11/19/18 [Rx] Ipratropium/Albuterol Neb [Duoneb] 3 ml IH Q4HR PRN 12/09/18 [History] Melatonin 6 mg PO HS 12/09/18 [History] Guaifenesin [Mucinex] 600 mg PO BID PRN 12/24/18 [History] Potassium Chloride [K-Tab ER] 20 meq PO DAILY 12/24/18 [History] predniSONE [PredniSONE] See Taper PO TAPER 12/24/18 [History] Furosemide [Lasix] 40 mg PO QAM PRN #30 tablet 12/28/18 [Rx] Allergy/AdvReac Type Severity Reaction Status Date / Time clarithromycin [From Biaxin] Allergy Gastrointestinal Verified 12/24/18 14:22 Upset codeine AdvReac See Verified 12/24/18 14:22 Comments lansoprazole [From Prevacid] AdvReac ulcer Verified 12/24/18 14:22 lisinopril AdvReac Cough Verified 12/24/18 14:22 meloxicam [From Mobic] AdvReac ulcer Verified 12/24/18 14:22 opium (anthroposophic) AdvReac nausea/vomi Verified 12/24/18 14:22 [Opium (Anthroposophic)] ting All Systems PM: A 10-system review of systems was performed and is negative for pertinent findings except as documented above in the HPI. Review of systems: 10 point review of systems was obtained and negative other than stated below: - Constitutional Constitutional: no chills, no fever(s) - Cardiovascular Cardiovascular ROS IM: dyspnea, dyspnea on exertion, no chest pain - Respiratory Respiratory: cough, dyspnea, hemoptysis, chest congestion, excessive phlegm production, change in phlegm color - Gastrointestinal Gastrointestinal: no abdominal pain, no nausea, no vomiting - Constitutional Vitals: Temp Pulse Resp BP Pulse Ox 97.5 F L 124 24 120/80 100 02/10/19 16:57 02/10/19 18:47 02/10/19 21:04 02/10/19 21:04 02/10/19 18:47 General appearance: Present: A&O X 3, pleasant, no acute distress Exam: . - Head Head exam: Present: atraumatic, normal inspection, normocephalic - Eye Eye exam: Present: EOMI, PERRL - ENT ENT exam: Present: mucous membranes dry, normal oropharynx - Neck Neck exam general surgery: Present: full ROM. Absent: tenderness - Respiratory Respiratory exam: Present: decreased breath sounds (Diffusely), respiratory distress (Mild). Absent: rales, rhonchi, wheezes - Cardiovascular Cardiovascular exam: Present: tachycardia. Absent: gallop, irregular rhythm, rubs, systolic murmur - GI/Abdominal GI/Abdominal exam: Present: normal bowel sounds, soft. Absent: distended, tenderness - Extremities Exam Extremities exam: Present: warm. Absent: pedal edema, tenderness - Neurological Exam Neurological exam: Present: alert, CN II-XII intact, oriented X3, no focal deficits. Absent: facial droop, speech deficit - Skin Skin exam: Present: dry, intact, warm Internal Med - H&P Results - Labs CBC & Chem 7: 02/10/19 17:14 02/10/19 17:14 Labs: Short CBC 02/10/19 Range/Units 17:14 WBC 14.5 H (4.3-11.1) K/mcL Hgb 10.7 L (11.5-15.4) g/dL Hct 34.0 L (35.3-44.9) % Plt Count 448 H (140-400) K/mcL Neutrophils # 10.6 H (1.6-8.9) K/mcL BMP 02/10/19 17:14 Sodium 132 L Potassium 4.7 Chloride 98 Carbon Dioxide 26 BUN 21 Creatinine 0.60 Glucose 112 H Calcium 10.5 H Cardiac Enzymes 02/10/19 Range/Units 17:14 Troponin I 0.03 (< 0.04) ng/mL - ABG Interpretation ABG results: 02/10/19 17:36 ABG pH 7.48 H ABG pCO2 35 ABG pO2 69 L ABG HCO3 26 ABG Total CO2 27 H ABG O2 Saturation 95 ABG Base Excess 3 - Impressions ITS Impressions Chest X-Ray 02/10/19 17:15 IMPRESSION: Background emphysematous changes. Superimposed right greater than left bibasilar airspace opacities and trace bilateral pleural effusions. Findings may reflect pneumonia and/or edema. D/ / 02/10/2019 17:39:43 Audrey Justin MD / nick Interpreting Provider: Audrey Justin MD Chest CTA 02/10/19 18:22 IMPRESSION: No evidence of acute pulmonary embolism. Enlarged main pulmonary artery suggestive of chronic pulmonary hypertension. Interval increase in bibasilar pulmonary opacities, right greater than left. Findings may represent aspiration, and/or pneumonia. Trace pericardial effusion versus pericardial thickening. Cardiomegaly. Redemonstration of a cavitary lesion within right lower lobe, with air-fluid levels. This appears reasonably similar to previous examination accounting for differences in technique. Possibility of cavitary neoplasm should be excluded. Similar appearance of extensive changes of pulmonary fibrosis, bronchiectasis, and architectural distortion. Mild right hilar lymphadenopathy. No significant left hilar lymphadenopathy. RECOMMENDATIONS: Follow-up chest CT in three months. D/ / 02/10/2019 19:47:33 Bob Justin MD / [email or web address] Interpreting Provider: Bob Justin MD - Assessment and Plan (1) Sepsis Current Visit: No Status: Acute Assessment and plan: Patient presents with leukocytosis, tachycardia with source presumed to be pneumonia. Patient received 1 L of fluids in the ER. Blood pressure is been stable, will not complete full 30 mL/kg given stable blood pressure and history of diastolic heart failure. Blood cultures have been ordered initial lactate 2.4, recheck down to 1.2. Continue antibiotics for pneumonia. Qualifiers: Sepsis type: sepsis due to unspecified organism Qualified Code(s): A41.9 - Sepsis, unspecified organism (2) Acute and chronic respiratory failure with hypoxia Current Visit: No Status: Acute Assessment and plan: Secondary to pneumonia and COPD exacerbation. Continue supplemental oxygen to maintain saturation greater than 88%. (3) Acute exacerbation of chronic obstructive airways disease Current Visit: No Status: Acute Assessment and plan: Secondary to pneumonia. Patient has wheezing on exam with increasing shortness of breath and sputum production. Once IV Solu-Medrol 60 every 6, scheduled bronchodilators, antibiotics. (4) Pneumonia Current Visit: Yes Status: Acute Assessment and plan: Patient has increasing lower lobe densities with known cavitary lung lesion. Given her symptomatology we will treat with broad-spectrum antibiotics for hospital associated pneumonia. Start vancomycin, Levaquin, Zosyn. Obtain MRSA nasal swab, respiratory infection panel, strep and legionella urinary antigen. Consult infectious disease for recurrent pneumonia and cavitary lung lesion. Qualifiers: Pneumonia type: due to unspecified organism Laterality: bilateral Lung location: unspecified part of lung Qualified Code(s): J18.9 - Pneumonia, unspecified organism (5) Cavitary lesion of lung Current Visit: No Status: Acute Assessment and plan: Patient has known cavitary lung lesion that is been followed by pulmonology as an outpatient. CT of the chest reviewed and showed relatively stable lesion. Etiology infectious versus neoplasm. Treat for pneumonia as above. Consult pulmonology for further recommendations. (6) Chronic diastolic heart failure Current Visit: Yes Status: Acute Assessment and plan: Known diastolic heart failure. Does not appear to be in acute exacerbation. Continue beta jane, by mouth Lasix. (7) DVT prophylaxis Current Visit: No Status: Acute Assessment and plan: Heparin 5000 units subcutaneous twice a day - Time Spent With Patient Total time spent is greater than 50% in coordination of care (as documented) at patient's floor/unit and/or counseling patient:
[2019-02-10] MEDS ORDERED: Ipratropium/Albuterol Neb 3 ML ONE (23:53)
[2019-02-10] MEDS: Ipratropium/Albuterol Neb 3 ML IH SCH (23:55)
[2019-02-10] MEDS: Budesonide/Formoterol 160/4.5 1 PUFF INH IH SCH (23:55)
[2019-02-11 00:06] LABS: Bilirubin,Urine Negative (Negative); Blood,Urine Trace-intact (Negative); Clarity,Urine Clear (Clear); Color,Urine Yellow (Yellow); Glucose,Urine (UA) Normal (Normal); Ketones,Urine Negative (Negative); Leukocyte Esterase,Urine Negative (Negative); Nitrite,Urine Negative (Negative); Protein,Urine Negative (Neg-Trace); Specific Gravity,Urine 1.015 (1.010-1.025); Urobilinogen,Urine Normal (Normal)
[2019-02-11 00:14] LABS: Bacteria,Urine None Seen per hpf (None-Few); Hyaline Casts,Urine None Seen per lpf (None-Few); RBC,Urine 0-3 per hpf (0-3); Squamous Epithelial Cell,Urine Moderate per lpf (None-Few); WBC,Urine 0-3 per hpf (0-3)
[2019-02-11] MEDS: Piperacillin/Tazobactam 3.375 GM in 0.9 % Sodium Chloride Mini Bag 100 ML IVPB SCH ×3 (00:14→16:02)
[2019-02-11] MEDS: methylPREDNISolone 125 MG/2 ML VIAL IVP SCH ×4 (00:15→17:34)
[2019-02-11] MEDS: Furosemide 20 MG TABLET PO SCH ×2 (00:15→08:08)
[2019-02-11] MEDS: *HR* HYDROcodone/Acet 5/325 mg TABLET PO PRN ×3 (00:16→20:25)
[2019-02-11] MEDS: Melatonin 3 MG TABLET PO PRN ×2 (00:17→20:25)
[2019-02-11 01:59] LABS: Adenovirus Not Detected (Not Detect); Bordetella Pertussis Not Detected (Not Detect); Chlamydophila pneumoniae Not Detected (Not Detect); Coronavirus 229E Not Detected (Not Detect); Coronavirus HKU1 Not Detected (Not Detect); Coronavirus NL63 Not Detected (Not Detect); Coronavirus OC43 Not Detected (Not Detect); Human Metapneumovirus Not Detected (Not Detect); Human Rhinovirus/Enterovirus Not Detected (Not Detect); Influenza A Subtype 2009 H1 Not Detected (Not Detect); Influenza A Untypeable Not Detected (Not Detect); Influenza B Not Detected (Not Detect); Mycoplasma pneumoniae Not Detected (Not Detect); Parainfluenza Virus 1 Not Detected (Not Detect); Parainfluenza Virus 2 Not Detected (Not Detect); Parainfluenza Virus 3 Not Detected (Not Detect); Parainfluenza Virus 4 Not Detected (Not Detect); Respiratory Syncytial Virus Not Detected (Not Detect)
[2019-02-11] MEDS: Ipratropium/Albuterol Neb 3 ML IH SCH ×5 (03:27→20:06)
[2019-02-11] MEDS: *HR* Heparin 5,000 UNIT/ML VIAL SQ SCH ×2 (05:50→17:36)
[2019-02-11 06:22] LABS: Basophils % 0.1 %; Hematocrit 32.4 % (35.3-44.9); Hemoglobin 10.2 g/dL (11.5-15.4); Immature Granulocytes % 0.5 % (0-4); Lymphocytes # 0.5 K/mcL (0.6-4.6); Lymphocytes % 3.1 %; Mean Corpuscular HGB Conc 31.5 g/dL (31.6-35.5); Mean Corpuscular Hemoglobin 29.7 pg (28.0-33.3); Mean Corpuscular Volume 94.2 fL (83.0-100.0); Mean Platelet Volume 10.2 fL (9.4-12.4); Monocytes # 0.3 K/mcL (0.0-1.3); Monocytes % 1.8 %; Neutrophils # 13.9 K/mcL (1.6-8.9); Platelet Count 437 K/mcL (140-400); Red Blood Count 3.44 M/mcL (3.82-4.97); Segmented Neutrophils % 94.5 %; White Blood Count 14.7 K/mcL (4.3-11.1)
[2019-02-11 06:42] LABS: BUN/Creatinine Ratio 24 (6-26); Blood Urea Nitrogen 13 mg/dL (8-23); Calcium 10.4 mg/dL (8.6-10.3); Carbon Dioxide 25 mEq/L (23-29); Chloride 99 mEq/L (98-107); Glucose 179 mg/dL (70-105); Magnesium 1.6 mg/dL (1.6-2.6); Osmolality,Calculated 281 (280-300); Potassium 4.2 mEq/L (3.5-5.1); Sodium 133 mEq/L (136-145); eGFR For African Americans > 60 (> 60); eGFR For Non-African Americans > 60 (> 60)
[2019-02-11] MEDS: Budesonide/Formoterol 160/4.5 1 PUFF INH IH SCH (07:33)
[2019-02-11] MEDS: Aspirin Enteric Coated 81 MG Tablet PO SCH (08:08)
[2019-02-11] MEDS ORDERED: levoFLOXacin 750 MG/150 ML 750 MG/150 ML BAG IVPB SCH (09:00)
--- NOTE | 2019-02-11 10:36 | Internal Med Progress Note ---
Hospitalist Progress Note - Encounter Date of Encounter: 02/11/19 Time of Encounter: 10:33 - Subjective Interval History: Still has shortness of breath but better. Saturating well on 5 L oxygen by nasal cannula. Review the lab and vitals. Still high blood count. Denies fever chills nausea vomiting headache dizziness chest pain abdominal pain diarrhea - Exam Vitals: Temp Pulse Resp BP Pulse Ox 98.3 F 116 16 124/81 94 02/11/19 07:51 02/11/19 07:51 02/11/19 07:51 02/11/19 07:51 02/11/19 07:51 Exam: .General appearance: No acute distress, A&O X 3 Head exam: Atraumatic Eye exam: EOMI, PERRLA ENT exam: Moist oral mucosa Neck nontender, supple Respiratory exam: Few rales at the base bilaterally more on right side with decreased breath sound Cardiovascular exam: Sinus tachycardia, no systolic murmur Abdominal exam: Soft, nontender, nondistended, positive bowel sounds Extremities exam: No calf tenderness, no pedal edema Present: Skin-no rash, warm, dry, intact Neurological exam: Alert, awake, oriented 3, CN II-XII intact, no focal defi cits. No facial droop. Normal speech. - Assessment and Plan (1) Acute exacerbation of chronic obstructive airways disease Current Visit: No Status: Acute Assessment and Plan: Secondary to pneumonia. On admission Patient has wheezing on exam with increasing shortness of breath and sputum production. He still has productive a sputum therefore a sputum culture ordered. No wheezing on exam today but decreased breath sound. Will decrease IV Solu-Medrol frequency and continue bronchodilators and antibiotic (2) Sepsis Current Visit: No Status: Acute Assessment and Plan: Patient presents with leukocytosis, tachycardia with source presumed to be pneumonia. Patient received 1 L of fluids in the ER. Blood pressure is been stable, will not complete full 30 mL/kg given stable blood pressure and history of diastolic heart failure. Blood cultures have been ordered initial lactate 2.4, recheck down to 1.2. Continue antibiotics for pneumonia. (3) Pneumonia Current Visit: Yes Status: Acute Assessment and Plan: Patient has increasing lower lobe densities with known cavitary lung lesion. On admission is started patient on broad-spectrum antibiotics for hospital associated pneumonia. Continue vancomycin, Levaquin, Zosyn. Negative MRSA nasal swab, Negative respiratory infection panel, Negative strep and legionella urinary antigen. Consulted infectious disease and spray maker for recurrent pneumonia and cavitary lung lesion. Patient has been under care of ID before for the same medical problem with cavitary lung lesion. (4) Acute and chronic respiratory failure with hypoxia Current Visit: No Status: Acute Assessment and Plan: Secondary to pneumonia and COPD exacerbation. At present patient is on 5 L oxygen by nasal cannula. ? As per patient see takes 4-5 L oxygen by nasal cannula at home because chronic respiratory failure due to COPD (5) Cavitary lesion of lung Current Visit: No Status: Acute Assessment and Plan: Patient has known cavitary lung lesion that is been followed by pulmonology as an outpatient. CT of the chest reviewed and showed relatively stable lesion. Etiology infectious versus neoplasm. As mentioned above. IMPRESSION: No evidence of acute pulmonary embolism. Enlarged main pulmonary artery suggestive of chronic pulmonary hypertension. Interval increase in bibasilar pulmonary opacities, right greater than left. Findings may represent aspiration, and/or pneumonia. Trace pericardial effusion versus pericardial thickening. Cardiomegaly. Redemonstration of a cavitary lesion within right lower lobe, with air-fluid levels. This appears reasonably similar to previous examination accounting for differences in technique. Possibility of cavitary neoplasm should be excluded. Similar appearance of extensive changes of pulmonary fibrosis, bronchiectasis, and architectural distortion. Mild right hilar lymphadenopathy. No significant left hilar lymphadenopathy. RECOMMENDATIONS: Follow-up chest CT in three months. (6) Chronic diastolic heart failure Current Visit: Yes Status: Acute Assessment and Plan: Known diastolic heart failure. Slight elevation of BNP but better than last BNP. Patient does not appear in volume overload. Continue home medicine beta jane and Lasix. (7) DVT prophylaxis Current Visit: No Status: Acute Assessment and Plan: Heparin 5000 units subcutaneous twice a day - Time Spent with Patient Total time spent is greater than 50% in coordination of care (as documented) at patient's floor/unit and/or counseling patient: Internal Medicine: Result - Labs CBC & Chem 7: 02/11/19 06:04 02/11/19 06:04 Labs: Short CBC 02/10/19 02/11/19 Range/Units 17:14 06:04 WBC 14.5 H 14.7 H (4.3-11.1) K/mcL Hgb 10.7 L 10.2 L (11.5-15.4) g/dL Hct 34.0 L 32.4 L (35.3-44.9) % Plt Count 448 H 437 H (140-400) K/mcL Neutrophils # 10.6 H 13.9 H (1.6-8.9) K/mcL BMP 02/10/19 02/11/19 17:14 06:04 Sodium 132 L 133 L Potassium 4.7 4.2 Chloride 98 99 Carbon Dioxide 26 25 BUN 21 13 Creatinine 0.60 0.55 L Glucose 112 H 179 H Calcium 10.5 H 10.4 H Cardiac Enzymes 02/10/19 Range/Units 17:14 Troponin I 0.03 (< 0.04) ng/mL Urine 02/10/19 Range/Units 23:52 Urine Color Yellow (Yellow) Urine Clarity Clear (Clear) Urine pH 7.0 (5.0-8.0) pH Units Ur Specific [place] 1.015 (1.010-1.025) Urine Protein Negative (Neg-Trace) mg/dL Urine Glucose (UA) Normal (Normal) mg/dL - ABG Interpretation ABG results: ABG ABG pH 7.48 pH Units (7.32-7.45) H 02/10/19 17:36 ABG pCO2 35 mmHg (35-45) 02/10/19 17:36 ABG pO2 69 mmHg (85-104) L 02/10/19 17:36 ABG O2 Saturation 95 % (95-98) 02/10/19 17:36 PT/INR, D-dimer 967 ng/mLFEU (0-500) H 02/10/19 17:14 - Impressions Impressions Chest X-Ray 02/10/19 17:15 IMPRESSION: Background emphysematous changes. Superimposed right greater than left bibasilar airspace opacities and trace bilateral pleural effusions. Findings may reflect pneumonia and/or edema. D/ / 02/10/2019 17:39:43 Audrey Justin MD / nick Interpreting Provider: Audrey Justin MD Chest CTA 02/10/19 18:22 IMPRESSION: No evidence of acute pulmonary embolism. Enlarged main pulmonary artery suggestive of chronic pulmonary hypertension. Interval increase in bibasilar pulmonary opacities, right greater than left. Findings may represent aspiration, and/or pneumonia. Trace pericardial effusion versus pericardial thickening. Cardiomegaly. Redemonstration of a cavitary lesion within right lower lobe, with air-fluid levels. This appears reasonably similar to previous examination accounting for differences in technique. Possibility of cavitary neoplasm should be excluded. Similar appearance of extensive changes of pulmonary fibrosis, bronchiectasis, and architectural distortion. Mild right hilar lymphadenopathy. No significant left hilar lymphadenopathy. RECOMMENDATIONS: Follow-up chest CT in three months. D/ / 02/10/2019 19:47:33 Bob Justin MD / santiago Interpreting Provider: Bob Justin MD Consult Discharge Plan - Plan Referrals: Aren Malik Jr, MD [Primary Care Provider] - (2) Sepsis Qualifiers: Sepsis type: sepsis due to unspecified organism Qualified Code(s): A41.9 - Sepsis, unspecified organism (3) Pneumonia Qualifiers: Pneumonia type: due to unspecified organism Laterality: bilateral Lung location: unspecified part of lung Qualified Code(s): J18.9 - Pneumonia, unspecified organism
[2019-02-11] MEDS ORDERED: Ipratropium/Albuterol Neb 3 ML IH PRN (15:07)
[2019-02-11] MEDS ORDERED: Nitroglycerin 0.4 MG TAB.SUBL SL PRN (15:07)
[2019-02-11] MEDS: Nystatin SUSP 5 ML UD.LIQ PO SCH ×2 (16:01→20:25)
--- NOTE | 2019-02-11 16:49 | Pulmonology Consult Note ---
Date of Encounter: 02/11/19 Time of Encounter: 10:45 Assessment and Plan (1) Cavitary lesion of lung Current Visit: No Status: Chronic I had extensive discussion with patient in the presence of her family and one more time I have emphasized the fact that to have more definitive diagnosis then we will need biopsy of the cavitary lesion which I suspect there are 2 processes is going in this case. I have explained to her there are some risks associated with biopsies which in this case would be CT-guided biopsy since she already had bronchoscopy in the past without definitive diagnosis. We have discussed the role of antibiotics and discussed the case with infectious disease and agree with the recommendations. Patient wants to feel stronger and her respiratory status improves before she gets any procedures which is reasonable. I have recommended to have a biopsy done if she agreed while she is in the hospital. We will revisit this on early next week and she will be on antibiotics for now. Depends on the clinical course will have more recommendations. I have answered all their questions and thank you for consultation. (2) Pneumonia Current Visit: Yes Status: Acute Discussed with infectious disease and agree with current treatment. NIV if her symptoms worsen. Patient already had bronchoscopy in the past and non- diagnostic. Qualifiers: Pneumonia type: due to unspecified organism Laterality: bilateral Lung location: unspecified part of lung Qualified Code(s): J18.9 - Pneumonia, unspecified organism History of Present Illness Consult date: 02/11/19 Requesting physician: Gibran Good Reason for consult: dyspnea, pneumonia Chief complaint: Shortness of breath History of present illness: This is a very pleasant 73 year old female with advance COPD and she known to me and she was recently seen in the office after she had CT chest for follow and she was doing better and that is what happen when she is on antibiotics. She presented with worsening of her shortness of breath, productive cough and not feeling not feeling good. She has subjective fever and chills. She was told about the biopsy when she was in the office and she wanted to wait. She has seen infectious disease as well. She denies any other symptoms and she start feeling better since she started on the antibiotics again. Past Med Surg Social Fam HX - Past Medical History Medical history: CHF, COPD, hypertension Additional medical history: mitral valve prolapse Psychiatric history: anxiety - Past Surgical History Surgical History: angioplasty/stent, breast surgery, cholecystectomy, hysterectomy, orthopedic, other, other Additional surgical history: left breast. back surgery. EGD. 2 heart stents. - Social History Smoking Status: Former smoker Smokeless Tobacco Status: No Alcohol use: none Drug use: none - Family History Brother Living Status: Hx Family Cardiac Disorders: Yes Mother Living Status: Hx Family Cardiac Disorders: Yes ("artery disease", CHF) Hx Family GI Disorders: Yes (ulcers) Hx Family Endocrine Disorder: Yes Father Living Status: Hx Family Cardiac Disorders: Yes ("valve problems") Medications and Allergies Citalopram [CeleXA] 20 mg PO DAILY 02/05/16 [History] Loratadine [Claritin] 10 mg PO DAILY 02/05/16 [History] Lovastatin [Mevacor] 40 mg PO HS 02/05/16 [History] Metoprolol [Lopressor] 25 mg PO BID 02/05/16 [History] Nitroglycerin [Nitrostat] 0.4 mg SL Q5M PRN 02/05/16 [History] Albuterol Sulfate [Albuterol Inhaler] 2 puff IH Q4HR PRN #2 hfa.aer.ad 02/08/16 [Rx] Aspirin [Lo-Dose Aspirin EC] 81 mg PO DAILY 11/12/18 [History] Budesonide/Formoterol 160/4.5 [Symbicort 160/4.5] 2 puff IH BIDR 11/12/18 [History] L. Acidophilus/Pectin, [place] [Acidophilus Probiotic Capsule] 1 cap PO DAILY [History] Multivitamin [One Daily] 1 tab PO DAILY 11/12/18 [History] raNITIdine HCl [Zantac] 150 mg PO BID 11/12/18 [History] Menthol [Cough Drops] 9.1 mg PO Q2H PRN #0 lozenge 11/19/18 [Rx] Ipratropium/Albuterol Neb [Duoneb] 3 ml IH Q4HR PRN 12/09/18 [History] Melatonin 6 mg PO HS 12/09/18 [History] Guaifenesin [Mucinex] 600 mg PO BID PRN 12/24/18 [History] Potassium Chloride [K-Tab ER] 20 meq PO DAILY 12/24/18 [History] Furosemide [Lasix] 40 mg PO QAM PRN #30 tablet 12/28/18 [Rx] Albuterol Neb [Proventil Neb] 2.5 mg PO TID PRN 02/11/19 [History] Benzonatate [Tessalon] 200 mg PO HS PRN 02/11/19 [History] Diclofenac Sodium [Voltaren] 75 mg PO DAILY PRN 02/11/19 [History] Nystatin [Nystatin Suspension] 4 ml PO QID 02/11/19 [History] Promethazine [Phenergan] 25 mg PO Q6H PRN 02/11/19 [History] Umeclidinium Brm/Vilanterol Tr [Anoro Ellipta 62.5-25 Mcg INH] 2 puff PO DAILY 02/11/19 [History] Allergy/AdvReac Type Severity Reaction Status Date / Time clarithromycin [From Biaxin] Allergy Gastrointestinal Verified 02/11/19 14:48 Upset codeine AdvReac See Verified 02/11/19 14:48 Comments lansoprazole [From Prevacid] AdvReac ulcer Verified 02/11/19 14:48 lisinopril AdvReac Cough Verified 02/11/19 14:48 meloxicam [From Mobic] AdvReac ulcer Verified 02/11/19 14:48 opium (anthroposophic) AdvReac nausea/vomi Verified 02/11/19 14:48 [Opium (Anthroposophic)] ting All Systems: The remainder of the systems were reviewed and are negative Physical Examination Vital Signs: Vital Signs, Last 4 Hours Resp BP Pulse Ox 02/11/19 16:38 20 125/89 92 General appearance: no acute distress Eyes: nonicteric ENT: oropharynx moist Neck: supple, no lymphadenopathy Effort: mildly labored Inspection: kyphosis Auscultation: bilateral: diminished breath sounds, rhonchi Percussion: bilateral: not dull Cardiovascular: regular rate and rhythm Gastrointestinal: normoactive bowel sounds, non-distended Extremities: no cyanosis, edema normal mental status, non-focal exam mood appropriate Results - Laboratory Findings CBC and BMP: 02/12/19 01:31 02/12/19 01:31 ABG ABG pH 7.48 pH Units (7.32-7.45) H 02/10/19 17:36 ABG pCO2 35 mmHg (35-45) 02/10/19 17:36 ABG pO2 69 mmHg (85-104) L 02/10/19 17:36 ABG O2 Saturation 95 % (95-98) 02/10/19 17:36 PT/INR, D-dimer 967 ng/mLFEU (0-500) H 02/10/19 17:14 Abnormal lab findings: Abnormal lab results WBC 14.7 K/mcL (4.3-11.1) H 02/11/19 06:04 RBC 3.44 M/mcL (3.82-4.97) L 02/11/19 06:04 Hgb 10.2 g/dL (11.5-15.4) L 02/11/19 06:04 Hct 32.4 % (35.3-44.9) L 02/11/19 06:04 MCHC 31.5 g/dL (31.6-35.5) L 02/11/19 06:04 RDW 16.0 % (11.5-14.5) H 02/11/19 06:04 Plt Count 437 K/mcL (140-400) H 02/11/19 06:04 13.9 K/mcL (1.6-8.9) H 02/11/19 06:04 0.5 K/mcL (0.6-4.6) L 02/11/19 06:04 1.6 K/mcL (0.0-1.3) H 02/10/19 17:14 967 ng/mLFEU (0-500) H 02/10/19 17:14 ABG pH 7.48 pH Units (7.32-7.45) H 02/10/19 17:36 ABG pO2 69 mmHg (85-104) L 02/10/19 17:36 ABG Total CO2 27 mEq/L (20-26) H 02/10/19 17:36 Sodium 133 mEq/L (136-145) L 02/11/19 06:04 0.55 mg/dL (0.60-1.20) L 02/11/19 06:04 35 (6-26) H 02/10/19 17:14 Glucose 179 mg/dL (70-105) H 02/11/19 06:04 278 (280-300) L 02/10/19 17:14 Lactic Acid 2.4 mmol/L (0.5-2.2) H 02/10/19 17:34 Calcium 10.4 mg/dL (8.6-10.3) H 02/11/19 06:04 B-Natriuretic Peptide 431 pg/mL (Less than 100) H 02/10/19 17:14 Trace-intact (Negative) H 02/10/19 23:52 Ur Squamous Epith Cells Moderate per lpf (None-Few) H 02/10/19 23:52 - Microbiology Findings Microbiology Findings: Microbiology, Last 48 Hours 02/11/19 12:10 Sputum Culture - Preliminary Sputum 02/10/19 23:52 Legionella Antigen - Final Urine,Clean Catch Streptococcus pneumoniae Antigen (M - Final 02/10/19 19:30 Blood Culture - Preliminary Peripheral Venipuncture Culture is incubating and being continuously monitored for growth. Final report to follow. 02/10/19 19:30 Blood Culture - Preliminary Peripheral Venipuncture Culture is incubating and being continuously monitored for growth. Final report to follow. - Diagnostic Findings CT scan - chest: report reviewed, image reviewed - Clinical Findings Intake & Output: Intake & Output 02/11/19 02/11/19 02/11/19 07:59 15:59 23:59 Intake Total 900 / 1360 460 / 1360 Output Total 1999 / 2550 550 / 2550 Balance -1100 / -1190 -90 / -1190 Consult Discharge Plan - Plan Referrals: Aren Malik Jr, MD [Primary Care Provider] -
--- NOTE | 2019-02-11 16:52 | Electrocardiograph Report ---
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
--- NOTE | 2019-02-11 17:25 | Infectious Disease Consult ---
Infectious Disease-Consult - Encounter Date/Time Date of Encounter: 02/11/19 Time of Encounter: 17:15 - Data of Consult Patient: new to practice Reason for consult: cavitary lung lesion Consult date: 02/11/19 Requesting Physician: Stan Leon MD Primary Care Provider: Aren Malik Jr, MD - [facility] HPI: Patient is a 73-year-old woman well-known to my service who was admitted on 02/10/2019 with shortness of breath cough and sputum production. We are consulted on 02/11/2019 for cavitary lung lesion and worsening respiratory status. Patient is a 73-year-old woman well-known to my service. For seen by me on 12/10/2018 with a cavitary lung lesion. Extensive workup including Workup including TB, Aspergillus galactomannan, Histoplasma antigen, Blastomyces antibody and respiratory infectious panel were all negative. Bronchoscopy with BAL was also negative but patient has been on antibiotic for a few days. MRSA screen was negative urine legionella and pneumococcal antigen were negative. No organism or pathology was identified. We decided to discharge the patient on Augmentin and doxycycline. Patient received doxycycline and Augmentin through 02/02/2019 (8 weeks total). A follow-up CT on 01/28/2019 revealed bilateral lower lobe airspace disease with areas of consolidation to the right lower lobe improved since the study in November but the cavitary posterior right lower lobe mass with irregular nodular thickening wall was persistent and if anything was a little bit bigger. At that time I had a long discussion with the family and I said I think we should stop the antibiotics after 8 weeks and if symptoms come back we will have to reevaluate and maybe try to get organism that will he can tailor antibiotics and maybe she needs IV at that time. Since admission, patient has been afebrile, tachycardic and tachypneic with intermittent hypoxia otherwise hemodynamically stable. Presenting labs revealed a WBC of 14.5 with 73% neutrophils no bands. BUN 21 creatinine 0.6 and lactic acid of 2.4. A urinalysis was nonrevealing. Nasal MRSA screen was negative and respiratory infectious panel was nondetectable. Blood cultures 2 were obtained on 2018 and are no growth to date. Urine legionella and pneumococcal antigen were both negative. Sputum culture reveals gram-positive cocci with final ID pending. A CT chest reviewed and is very impressive for extensive changes of pulmonary fibrosis, bronchiectasis and architectural distortion and increased in bibasilar pulmonary opacities right greater than left concerning for aspiration or pneumonia. There was also redemonstration of a cavitary lesion with a right lower lobe and air-fluid levels. It appears reasonably similar to previous examination accounting for difference in technique. Possible to of cavitary neoplasm should be excluded. Patient was started on empiric Zosyn were asked to evaluate the patient and make further recommendations. Patient currently laying in bed on BiPAP machine. She tells me she feels significantly better. She states that she was very short of breath and having cough with sputum production. - ROS Review of Systems: 10 point review of systems done, negative other for what is mentioned in the history of present illness - Results CBC & Chem 7: 02/11/19 06:04 02/11/19 06:04 - Exam Vitals: Temp Pulse Resp BP Pulse Ox 98.2 F 135 22 112/82 92 02/11/19 11:17 02/11/19 17:03 02/11/19 17:03 02/11/19 17:03 02/11/19 17:03 Exam: GENERAL: Laying in bed, appears comfortable. While on CPAP but she gets winded even with minimal speech HEAD: Normocephalic atraumatic EYES: PERRLA, EOMI, no conjunctival hemorrhage, sclera anicteric ENT: Mucous membranes moist, no oral thrush NECK: Supple. No meningeal signs. No masses LUNGS: Chest expanding symmetrically. Diminished breath sounds universally. I did not appreciate any rhonchi or wheezing but it was a very limited exam CV: RRR, S1S2, ABDOMEN: Soft, nontender, nondistended. Bowel sounds audible BACK: No CVA tenderness. Normal inspection. No tenderness over the spine EXTREMITY: Adequate perfusion. No joint effusion. SKIN: Normal color. No rash. NEURO: Awake alert oriented 3. No obvious focal deficit PSYCH: Calm and appropriate. No agitation. Citalopram [CeleXA] 20 mg PO DAILY 02/05/16 [History] Loratadine [Claritin] 10 mg PO DAILY 02/05/16 [History] Lovastatin [Mevacor] 40 mg PO HS 02/05/16 [History] Metoprolol [Lopressor] 25 mg PO BID 02/05/16 [History] Nitroglycerin [Nitrostat] 0.4 mg SL Q5M PRN 02/05/16 [History] Albuterol Sulfate [Albuterol Inhaler] 2 puff IH Q4HR PRN #2 hfa.aer.[id number] 02/08/16 [Rx] Aspirin [Lo-Dose Aspirin EC] 81 mg PO DAILY 11/12/18 [History] Budesonide/Formoterol 160/4.5 [Symbicort 160/4.5] 2 puff IH BIDR 11/12/18 [History] L. Acidophilus/Pectin, [place] [Acidophilus Probiotic Capsule] 1 cap PO DAILY 11/12/18 [History] Multivitamin [One Daily] 1 tab PO DAILY 11/12/18 [History] raNITIdine HCl [Zantac] 150 mg PO BID 11/12/18 [History] Menthol [Cough Drops] 9.1 mg PO Q2H PRN #0 lozenge 11/19/18 [Rx] Ipratropium/Albuterol Neb [Duoneb] 3 ml IH Q4HR PRN 12/09/18 [History] Melatonin 6 mg PO HS 12/09/18 [History] Guaifenesin [Mucinex] 600 mg PO BID PRN 12/24/18 [History] Potassium Chloride [K-Tab ER] 20 meq PO DAILY 12/24/18 [History] Furosemide [Lasix] 40 mg PO QAM PRN #30 tablet 12/28/18 [Rx] Albuterol Neb [Proventil Neb] 2.5 mg PO TID PRN 02/11/19 [History] Benzonatate [Tessalon] 200 mg PO HS PRN 02/11/19 [History] Diclofenac Sodium [Voltaren] 75 mg PO DAILY PRN 02/11/19 [History] Nystatin [Nystatin Suspension] 4 ml PO QID 02/11/19 [History] Promethazine [Phenergan] 25 mg PO Q6H PRN 02/11/19 [History] Umeclidinium Brm/Vilanterol Tr [Anoro Ellipta 62.5-25 Mcg INH] 2 puff PO DAILY 02/11/19 [History] Allergy/AdvReac Type Severity Reaction Status Date / Time clarithromycin [From Biaxin] Allergy Gastrointestinal Verified 02/11/19 14:48 Upset codeine AdvReac See Verified 02/11/19 14:48 Comments lansoprazole [From Prevacid] AdvReac ulcer Verified 02/11/19 14:48 lisinopril AdvReac Cough Verified 02/11/19 14:48 meloxicam [From Mobic] AdvReac ulcer Verified 02/11/19 14:48 opium (anthroposophic) AdvReac nausea/vomi Verified 02/11/19 14:48 [Opium (Anthroposophic)] ting - Assessment and Plan (1) Sepsis Current Visit: No Status: Acute Patient had 3 SIRS criteria on admission Likely secondary to pneumonia Qualifiers: Sepsis type: sepsis due to unspecified organism Qualified Code(s): A41.9 - Sepsis, unspecified organism SNOMED Code(s): 15147726 (2) Acute respiratory failure Current Visit: Yes Status: Acute Patient requiring high O2 demands. Currently she is on CPAP. Likely multifactorial due to underlying COPD, pulmonary fibrosis, bronchiectasis, possible pneumonia and cavitary lung lesion Prognosis guarded. Qualifiers: Respiratory failure complication: hypoxia Qualified Code(s): J96.01 - Acute respiratory failure with hypoxia SNOMED Code(s): 37510751 (3) Healthcare-associated pneumonia Current Visit: Yes Status: Acute CT revealed right basilar infiltrate concerning for pneumonia aspiration versus other Causative organism not clear. MRSA screen was negative. Urine legionella and pneumococcal antigen negative. Respiratory infectious panel negative Sputum culture 02/11/2019. Gram-positive cocci await final identification Patient started on Zosyn Agree with Zosyn for now. I benefit from adding doxycycline. Discussed with the pulmonary team. No plans for bronchoscopy at this point. Due to the patient's high risk SNOMED Code(s): 412640019, 836270783 (4) Cavitary lesion of lung Current Visit: No Status: Chronic First seen in 11/11/2018. Extensive workup including for TB, fungal element were all negative. Status post EGD 11/15/2018 and 12/13/2018. Both were also nonrevealing. Cultures were negative. Fungal cultures and AFB were negative. And flow cytometry were almost negative. Patient was treated with 8 weeks of Augmentin and doxycycline with no improvement whatsoever High index of suspicion for malignancy After long discussion with pulmonary, if the patient is stable we will might do a biopsy of the lesion on Thursday Prognosis is guarded at best SNOMED Code(s): 882673386 (5) Pulmonary fibrosis Current Visit: Yes Status: Acute SNOMED Code(s): 61039296 (6) CAD (coronary artery disease) Current Visit: No Status: Chronic Qualifiers: Coronary Disease-Associated Artery/Lesion type: [place] artery [place] vs. transplanted heart: unspecified whether [place] or transplanted heart Associated angina: without angina Qualified Code(s): I25.10 - Atherosclerotic heart disease of [place] coronary artery without angina pectoris SNOMED Code(s): 82612276 (7) Hyperlipidemia Current Visit: No Status: Acute Qualifiers: Hyperlipidemia type: Mixed hyperlipidemia Qualified Code(s): E78.2 - Mixed hyperlipidemia SNOMED Code(s): 27060621 Past Med Surg Social Fam HX - Past Medical History Medical history: CHF, COPD, hypertension Additional medical history: mitral valve prolapse Psychiatric history: anxiety - Past Surgical History Surgical History: angioplasty/stent, breast surgery, cholecystectomy, hysterectomy, orthopedic, other, other Additional surgical history: left breast. back surgery. EGD. 2 heart stents. - Social History Smoking Status: Former smoker Smokeless Tobacco Status: No Alcohol use: none Drug use: none - Family History Brother Living Status: Hx Family Cardiac Disorders: Yes Mother Living Status: Hx Family Cardiac Disorders: Yes ("artery disease", CHF) Hx Family GI Disorders: Yes (ulcers) Hx Family Endocrine Disorder: Yes Father Living Status: Hx Family Cardiac Disorders: Yes ("valve problems") Consult Discharge Plan - Plan Referrals: Aren Malik Jr, MD [Primary Care Provider] -
[2019-02-11] MEDS: levoFLOXacin 750 MG/150 ML 750 MG/150 ML BAG IVPB SCH (20:26)
[2019-02-12] MEDS: Ipratropium/Albuterol Neb 3 ML IH SCH ×7 (00:07→23:18)
[2019-02-12] MEDS: methylPREDNISolone 125 MG/2 ML VIAL IVP SCH ×5 (00:33→23:47)
[2019-02-12] MEDS: Piperacillin/Tazobactam 3.375 GM in 0.9 % Sodium Chloride Mini Bag 100 ML IVPB SCH ×3 (00:34→17:44)
[2019-02-12 02:32] LABS: Basophils % 0.1 %; Eosinophils % 0.1 %; Hematocrit 30.6 % (35.3-44.9); Hemoglobin 9.5 g/dL (11.5-15.4); Immature Granulocytes % 0.7 % (0-4); Lymphocytes # 0.6 K/mcL (0.6-4.6); Lymphocytes % 3.6 %; Mean Corpuscular Volume 93.3 fL (83.0-100.0); Mean Platelet Volume 10.6 fL (9.4-12.4); Monocytes % 5.7 %; Neutrophils # 15.6 K/mcL (1.6-8.9); Platelet Count 444 K/mcL (140-400); Red Blood Count 3.28 M/mcL (3.82-4.97); Red Cell Distribution Width 16.2 % (11.5-14.5); Segmented Neutrophils % 89.8 %; White Blood Count 17.4 K/mcL (4.3-11.1)
[2019-02-12 02:48] LABS: BUN/Creatinine Ratio 36 (6-26); Blood Urea Nitrogen 21 mg/dL (8-23); Carbon Dioxide 29 mEq/L (23-29); Chloride 95 mEq/L (98-107); Glucose 139 mg/dL (70-105); Osmolality,Calculated 281 (280-300); Potassium 3.8 mEq/L (3.5-5.1); Sodium 133 mEq/L (136-145); eGFR For African Americans > 60 (> 60); eGFR For Non-African Americans > 60 (> 60)
[2019-02-12] MEDS ORDERED: *HR* LORazepam 0.5 MG TABLET PO ONE (03:00)
[2019-02-12] MEDS: *HR* Heparin 5,000 UNIT/ML VIAL SQ SCH ×3 (06:34→22:08)
[2019-02-12] MEDS: Lactobacillus 1 EACH CAP.SPRINK PO SCH (08:49)
[2019-02-12] MEDS: Furosemide 20 MG TABLET PO SCH (08:49)
[2019-02-12] MEDS: Nystatin SUSP 5 ML UD.LIQ PO SCH ×4 (08:49→20:11)
[2019-02-12] MEDS: Aspirin Enteric Coated 81 MG Tablet PO SCH (08:49)
[2019-02-12] MEDS: Loratadine 10 MG TABLET PO SCH (08:49)
[2019-02-12] MEDS ORDERED: UMECLIDINIUM BRM PO SCH (09:00)
[2019-02-12] MEDS ORDERED: VILANTEROL TR PO SCH (09:00)
[2019-02-12 10:47] LABS: ABG Base Excess 7 mEq/L (-2 to 3); ABG HCO3 31 mEq/L (21-27); ABG Oxygen Saturation 92 % (95-98); ABG PCO2 42 mmHg (35-45); ABG PH 7.48 pH Units (7.32-7.45); ABG PO2 59 mmHg (85-104); ABG TCO2 33 mEq/L (20-26)
--- NOTE | 2019-02-12 10:50 | Internal Med Progress Note ---
Hospitalist Progress Note - Encounter Date of Encounter: 02/12/19 Time of Encounter: 10:48 - Subjective Interval History: Patient resting comfortably while on BiPAP. Continuous BiPAP requirement. Oxygen saturation drop in lower 80s on oxygen mask. Reviewed the vitals with better tachycardia. Review the lab with elevated white count Patient denies fever chills nausea vomiting headache dizziness chest pain abdominal pain diarrhea - Exam Vitals: Temp Pulse Resp BP Pulse Ox 98 F 139 32 143/88 94 02/12/19 08:03 02/12/19 08:03 02/12/19 08:03 02/12/19 08:03 02/12/19 08:56 Exam: .General appearance: No acute distress, A&O X 3. On BiPAP Head exam: Atraumatic Eye exam: EOMI, PERRLA ENT exam: Moist oral mucosa Neck nontender, supple Respiratory exam: Decreased breath sounds bilaterally more on right side than left Cardiovascular exam: Sinus tachycardia, no systolic murmur Abdominal exam: Soft, nontender, nondistended, positive bowel sounds Extremities exam: No calf tenderness, no pedal edema Present: Skin-no rash, warm, dry, intact Neurological exam: Alert, awake, oriented 3, CN II-XII intact, no focal deficits. - Assessment and Plan (1) Acute exacerbation of chronic obstructive airways disease Current Visit: No Status: Acute Assessment and Plan: History of advanced COPD. Patient is on 5 L home oxygen. Now BiPAP dependent. Continue IV steroid Solu-Medrol 60 mg IV every 6 hours will taper down eventually based on response, bronchodilators and antibiotic. Pulmonologists on board (2) Sepsis Current Visit: No Status: Acute Assessment and Plan: Patient presents with leukocytosis, tachycardia with source presumed to be pneumonia. Patient received 1 L of fluids in the ER. Blood pressure is been stable, not complete full 30 mL/kg given stable blood pressure and history of diastolic heart failure. Blood cultures with no growth yet initial lactate 2.4-repeat lactate normal. Continue antibiotics for pneumonia. (3) Pneumonia Current Visit: Yes Status: Acute Assessment and Plan: Patient has increasing lower lobe densities with known cavitary lung lesion. On admission is started patient on broad-spectrum antibiotics for hospital associated pneumonia. On admission is started -vancomycin, Levaquin, Zosyn. Negative MRSA nasal swab, Negative respiratory infection panel, Negative strep and legionella urinary antigen. Consulted infectious disease for recurrent pneumonia and cavitary lung lesion- of note ,extensive workup including TB fungal element were done in the past with negative finding. Patient also had EGD in October 2018 and November 2018 with nonsignificant finding. Flow cytometry were also negative. Patient did completed weeks of Augmentin and doxycycline with no improvement worse over. Plan for biopsy of the lesion on Thursday. Advised to continue Zosyn, Levaquin and add doxycycline. Start vancomycin his MRSA swab negative Pulmonologists on board. Slight elevated white count - could be secondary to a reactive response to a steroid as patient already on broader spectrum antibiotic. Continue to monitor CBC (4) Acute and chronic respiratory failure with hypoxia Current Visit: No Status: Acute Assessment and Plan: Secondary to pneumonia and COPD exacerbation. At present patient is on 5 L oxygen by nasal cannula. As per patient see takes 5 L oxygen by nasal cannula at home because chronic respiratory failure due to COPD (5) Cavitary lesion of lung Current Visit: No Status: Chronic Assessment and Plan: Patient has known cavitary lung lesion that is been followed by pulmonology as an outpatient. CT of the chest reviewed and showed relatively stable lesion. Etiology infectious versus neoplasm. As mentioned above. IMPRESSION: No evidence of acute pulmonary embolism. Enlarged main pulmonary artery suggestive of chronic pulmonary hypertension. Interval increase in bibasilar pulmonary opacities, right greater than left. Findings may represent aspiration, and/or pneumonia. Trace pericardial effusion versus pericardial thickening. Cardiomegaly. Redemonstration of a cavitary lesion within right lower lobe, with air-fluid levels. This appears reasonably similar to previous examination accounting for differences in technique. Possibility of cavitary neoplasm should be excluded. Similar appearance of extensive changes of pulmonary fibrosis, bronchiectasis, and architectural distortion. Mild right hilar lymphadenopathy. No significant left hilar lymphadenopathy. RECOMMENDATIONS: Follow-up chest CT in three months. (6) Chronic diastolic heart failure Current Visit: Yes Status: Acute Assessment and Plan: Known diastolic heart failure. Slight elevation of BNP but better than last BNP. Patient does not appear in volume overload. Continue home medicine beta jane and Lasix. Echo done November 2018 Impressions: LVEF 55%. Mild concentric left ventricular hypertrophy. Indeterminate diastolic function. Moderately dilated right ventricle with mild right ventricular hypokinesis. Mildly dilated right atrium. Mild tricuspid regurgitation. No pulmonary hypertension. Left Ventricular Wall Motion: Rest Echo Findings All wall segments showed normal motion. Will consult cardiology if needed (7) Sinus tachycardia Current Visit: Yes Status: Acute Assessment and Plan: As per patient she had baseline high heart rate while monitoring at home and get worse during acute episode of dyspnea. Better control after increasing dose of beta jane dose 50 mg twice a day. Is still elevated heart rate therefore inc rease metoprolol 100 mg by mouth twice a day while monitoring blood pressure. (8) D-dimer, elevated Current Visit: Yes Status: Acute Assessment and Plan: Ruled out PE by CT angiogram. Doppler venous ultrasound with no DVT (9) DVT prophylaxis Current Visit: No Status: Acute Assessment and Plan: Heparin 5000 units subcutaneous - Time Spent with Patient Total time spent is greater than 50% in coordination of care (as documented) at patient's floor/unit and/or counseling patient: 25 - 35 minutes Plan of Care Discussed with: patient Internal Medicine: Result - Labs CBC & Chem 7: 02/12/19 01:31 02/12/19 01:31 Labs: Short CBC 02/12/19 Range/Units 01:31 WBC 17.4 H (4.3-11.1) K/mcL Hgb 9.5 L (11.5-15.4) g/dL Hct 30.6 L (35.3-44.9) % Plt Count 444 H (140-400) K/mcL Neutrophils # 15.6 H (1.6-8.9) K/mcL BMP 02/12/19 01:31 Sodium 133 L Potassium 3.8 Chloride 95 L Carbon Dioxide 29 BUN 21 Creatinine 0.59 L Glucose 139 H Calcium 10.0 - ABG Interpretation ABG results: ABG ABG pH 7.48 pH Units (7.32-7.45) H 02/12/19 10:43 ABG pCO2 42 mmHg (35-45) 02/12/19 10:43 ABG pO2 59 mmHg (85-104) L 02/12/19 10:43 ABG O2 Saturation 92 % (95-98) L 02/12/19 10:43 PT/INR, D-dimer 967 ng/mLFEU (0-500) H 02/10/19 17:14 Consult Discharge Plan - Plan Referrals: Aren Malik Jr, MD [Primary Care Provider] - (2) Sepsis Qualifiers: Sepsis type: sepsis due to unspecified organism Qualified Code(s): A41.9 - Sepsis, unspecified organism (3) Pneumonia Qualifiers: Pneumonia type: due to unspecified organism Laterality: bilateral Lung location: unspecified part of lung Qualified Code(s): J18.9 - Pneumonia, unspecified organism
--- NOTE | 2019-02-12 13:39 | Pulmonology Progress Note ---
Date of Encounter: 02/12/19 Time of Encounter: 10:00 Assessment and Plan (1) Cavitary lesion of lung Current Visit: No Status: Chronic Overall patient stated that she is feeling better and she was placed on noninvasive ventilation which is appropriate for patient with COPD a specialty if they have an exacerbation. Plan remain the same for possible biopsy depends on how patient would feels and she will make a decision regarding that. The next week. Discussed with primary team and please call for any questions. Symbicort was stopped because of increase risk of pneumonia with any corticosteroids. (2) Pneumonia Current Visit: Yes Status: Acute Qualifiers: Pneumonia type: due to unspecified organism Laterality: bilateral Lung location: unspecified part of lung Qualified Code(s): J18.9 - Pneumonia, unspecified organism Subjective Principal diagnosis: Dyspnea Interval history: Patient was placed on BiPAP and she denying any new symptoms and she feels comfortable. Objective PUL Vital signs: Last Vital Signs Temp 97.4 F L 02/12/19 11:08 Pulse 108 02/12/19 11:08 Resp 18 02/12/19 11:12 BP 132/82 02/12/19 11:08 Pulse Ox 99 02/12/19 11:12 General: Patient is in no acute distress. HEENT: Normocephalic atraumatic, pupils are equal round and reactive to light and accommodation, anicteric sclera, nares is patent, mucous membranes moist, no JVD, trachea is midline Cardiovascular: Normal sinus rhythm, S1 and S2 audible, no murmur or rubs Respiratory: Scattered rhonchi to auscultation bilaterally. No acute distress. No wheezing. Patient not using accessory muscles. Abdomen: Soft, nontender, nondistended, positive bowel sounds in all 4 quadrants Extremities: Warm, dry, trace lower extremity edema. Normal capillary refill. Neuro: Alert and oriented and follows commands. Grossly no neuro deficits. Skin: Warm to touch : No obvious abnormalities. Psych: Normal Results - Laboratory Findings CBC and BMP: 02/12/19 01:31 02/12/19 01:31 ABG ABG pH 7.48 pH Units (7.32-7.45) H 02/12/19 10:43 ABG pCO2 42 mmHg (35-45) 02/12/19 10:43 ABG pO2 59 mmHg (85-104) L 02/12/19 10:43 ABG O2 Saturation 92 % (95-98) L 02/12/19 10:43 PT/INR, D-dimer 967 ng/mLFEU (0-500) H 02/10/19 17:14 Abnormal lab findings: Abnormal lab results WBC 17.4 K/mcL (4.3-11.1) H 02/12/19 01:31 RBC 3.28 M/mcL (3.82-4.97) L 02/12/19 01:31 Hgb 9.5 g/dL (11.5-15.4) L 02/12/19 01:31 Hct 30.6 % (35.3-44.9) L 02/12/19 01:31 MCHC 31.0 g/dL (31.6-35.5) L 02/12/19 01:31 RDW 16.2 % (11.5-14.5) H 02/12/19 01:31 Plt Count 444 K/mcL (140-400) H 02/12/19 01:31 15.6 K/mcL (1.6-8.9) H 02/12/19 01:31 0.5 K/mcL (0.6-4.6) L 02/11/19 06:04 1.6 K/mcL (0.0-1.3) H 02/10/19 17:14 967 ng/mLFEU (0-500) H 02/10/19 17:14 ABG pH 7.48 pH Units (7.32-7.45) H 02/12/19 10:43 ABG pO2 59 mmHg (85-104) L 02/12/19 10:43 ABG HCO3 31 mEq/L (21-27) H 02/12/19 10:43 ABG Total CO2 33 mEq/L (20-26) H 02/12/19 10:43 ABG O2 Saturation 92 % (95-98) L 02/12/19 10:43 ABG Base Excess 7 mEq/L (-2 to 3) H 02/12/19 10:43 Sodium 133 mEq/L (136-145) L 02/12/19 01:31 Chloride 95 mEq/L (98-107) L 02/12/19 01:31 0.59 mg/dL (0.60-1.20) L 02/12/19 01:31 36 (6-26) H 02/12/19 01:31 Glucose 139 mg/dL (70-105) H 02/12/19 01:31 278 (280-300) L 02/10/19 17:14 Lactic Acid 2.4 mmol/L (0.5-2.2) H 02/10/19 17:34 Calcium 10.4 mg/dL (8.6-10.3) H 02/11/19 06:04 B-Natriuretic Peptide 431 pg/mL (Less than 100) H 02/10/19 17:14 Trace-intact (Negative) H 02/10/19 23:52 Ur Squamous Epith Cells Moderate per lpf (None-Few) H 02/10/19 23:52 - Microbiology Findings Microbiology Findings: Microbiology, Last 48 Hours 02/11/19 12:10 Sputum Culture - Preliminary Sputum 02/10/19 23:52 Legionella Antigen - Final Urine,Clean Catch Streptococcus pneumoniae Antigen (M - Final 02/10/19 19:30 Blood Culture - Preliminary Peripheral Venipuncture Culture is incubating and being continuously monitored for growth. Final report to follow. 02/10/19 19:30 Blood Culture - Preliminary Peripheral Venipuncture Culture is incubating and being continuously monitored for growth. Final report to follow. - Clinical Findings Intake & Output: Intake & Output 02/11/19 02/12/19 02/12/19 23:59 07:59 15:59 Intake Total 250 / 1610 100 / 100 0 / 100 Output Total 550 / 3100 300 / 300 Balance -300 / -1490 -200 / -200 0 / -200 Weight 70.5 kg Consult Discharge Plan - Plan Referrals: Aren Malik Jr, MD [Primary Care Provider] -
[2019-02-12] MEDS: *HR* LORazepam 0.5 MG TABLET PO PRN (15:46)
[2019-02-12] MEDS: levoFLOXacin 750 MG/150 ML 750 MG/150 ML BAG IVPB SCH (17:45)
[2019-02-12] MEDS: Doxycycline 100 MG CAPSULE PO SCH (17:45)
[2019-02-12] MEDS: Metoprolol 100 MG TABLET PO SCH (20:11)
[2019-02-12] MEDS: Melatonin 3 MG TABLET PO PRN (20:13)
[2019-02-12] MEDS: *HR* HYDROcodone/Acet 5/325 mg TABLET PO PRN (22:07)
[2019-02-13] MEDS: Piperacillin/Tazobactam 3.375 GM in 0.9 % Sodium Chloride Mini Bag 100 ML IVPB SCH ×3 (01:17→15:25)
[2019-02-13] MEDS: Ipratropium/Albuterol Neb 3 ML IH SCH ×6 (03:31→23:54)
[2019-02-13 03:33] LABS: Basophils % 0.1 %; Hematocrit 31.2 % (35.3-44.9); Hemoglobin 9.8 g/dL (11.5-15.4); Immature Granulocytes % 0.5 % (0-4); Lymphocytes # 0.4 K/mcL (0.6-4.6); Lymphocytes % 2.5 %; Mean Corpuscular HGB Conc 31.4 g/dL (31.6-35.5); Mean Corpuscular Hemoglobin 29.1 pg (28.0-33.3); Mean Corpuscular Volume 92.6 fL (83.0-100.0); Mean Platelet Volume 10.4 fL (9.4-12.4); Monocytes # 0.8 K/mcL (0.0-1.3); Monocytes % 4.3 %; Neutrophils # 16.6 K/mcL (1.6-8.9); Platelet Count 456 K/mcL (140-400); Red Blood Count 3.37 M/mcL (3.82-4.97); Red Cell Distribution Width 16.3 % (11.5-14.5); Segmented Neutrophils % 92.6 %; White Blood Count 17.9 K/mcL (4.3-11.1)
[2019-02-13 03:52] LABS: BUN/Creatinine Ratio 54 (6-26); Blood Urea Nitrogen 29 mg/dL (8-23); Calcium 9.9 mg/dL (8.6-10.3); Carbon Dioxide 29 mEq/L (23-29); Chloride 97 mEq/L (98-107); Glucose 162 mg/dL (70-105); Osmolality,Calculated 289 (280-300); Potassium 3.6 mEq/L (3.5-5.1); Sodium 135 mEq/L (136-145); eGFR For African Americans > 60 (> 60); eGFR For Non-African Americans > 60 (> 60)
[2019-02-13] MEDS: *HR* LORazepam 0.5 MG TABLET PO PRN ×3 (03:53→20:57)
[2019-02-13] MEDS: methylPREDNISolone 125 MG/2 ML VIAL IVP SCH ×3 (05:07→18:04)
[2019-02-13] MEDS: Doxycycline 100 MG CAPSULE PO SCH ×2 (05:07→18:04)
[2019-02-13] MEDS: *HR* Heparin 5,000 UNIT/ML VIAL SQ SCH ×3 (05:08→20:58)
[2019-02-13] MEDS ORDERED: *HR* LORazepam 0.5 MG TABLET PO ONE (06:03)
[2019-02-13] MEDS: *HR* HYDROcodone/Acet 5/325 mg TABLET PO PRN (06:47)
[2019-02-13] MEDS: Furosemide 40 MG/4 ML VIAL IVP SCH (08:45)
[2019-02-13] MEDS: Lactobacillus 1 EACH CAP.SPRINK PO SCH (08:45)
[2019-02-13] MEDS: Aspirin Enteric Coated 81 MG Tablet PO SCH (08:45)
[2019-02-13] MEDS: Metoprolol 100 MG TABLET PO SCH ×2 (08:45→20:57)
[2019-02-13] MEDS: Loratadine 10 MG TABLET PO SCH (08:45)
[2019-02-13] MEDS: Nystatin SUSP 5 ML UD.LIQ PO SCH ×4 (08:45→20:57)
--- NOTE | 2019-02-13 09:19 | Pulmonology Progress Note ---
Date of Encounter: 02/13/19 Time of Encounter: 07:55 Assessment and Plan (1) Acute and chronic respiratory failure with hypoxia Current Visit: No Status: Acute I saw patient this morning and has respiratory distress, however after talking to her and placing her on BiPAP and calming her down, there was significant improvement in her hypoxia and work of breathing. She felt better and discussed with Dr. Barba that perhaps increasing her anxiolytic medication would be helpful as long as she is awake and not lethargic and have her on NIV. Unfortunately w ith her advance lung disease, she is could deteriorate further and I'm hoping her anxiety will not be a reason to cause her respiratory failure worsen and end up on invasive mechanical ventilation. (2) Cavitary lesion of lung Current Visit: No Status: Chronic Overall patient stated that she is feeling better and she was placed on noninvasive ventilation which is appropriate for patient with COPD a specialty if they have an exacerbation. Plan remain the same for possible biopsy depends on how patient would feels and she will make a decision regarding that. The next week. Discussed with primary team and please call for any questions. Symbicort was stopped because of increase risk of pneumonia with any corticosteroids. 02/13 she needs to be more stable for the biopsy. (3) Pneumonia Current Visit: Yes Status: Acute Qualifiers: Pneumonia type: due to unspecified organism Laterality: bilateral Lung location: unspecified part of lung Qualified Code(s): J18.9 - Pneumonia, unspecified organism Subjective Principal diagnosis: Dyspnea Interval history: Patient is having anxiety and feels more short of breath and she was just placed on BiPAP and she felt better and improvement in her SPO2. Objective PUL Vital signs: Last Vital Signs Temp 97.5 F L 02/13/19 07:43 Pulse 110 02/13/19 07:43 Resp 26 02/13/19 07:51 BP 135/95 02/13/19 07:43 Pulse Ox 93 02/13/19 07:51 General appearance: appears uncomfortable Eyes: nonicteric ENT: oropharynx dry Neck: supple, no lymphadenopathy Effort: mildly labored Auscultation: bilateral: diminished breath sounds, rhonchi Percussion: bilateral: not dull Cardiovascular: irregular rhythm Gastrointestinal: normoactive bowel sounds, non-distended Extremities: no cyanosis, edema normal mental status, non-focal exam anxious Results - Laboratory Findings CBC and BMP: 02/14/19 07:03 02/14/19 07:03 ABG ABG pH 7.48 pH Units (7.32-7.45) H 02/12/19 10:43 ABG pCO2 42 mmHg (35-45) 02/12/19 10:43 ABG pO2 59 mmHg (85-104) L 02/12/19 10:43 ABG O2 Saturation 92 % (95-98) L 02/12/19 10:43 PT/INR, D-dimer 967 ng/mLFEU (0-500) H 02/10/19 17:14 Abnormal lab findings: Abnormal lab results WBC 17.9 K/mcL (4.3-11.1) H 02/13/19 03:02 RBC 3.37 M/mcL (3.82-4.97) L 02/13/19 03:02 Hgb 9.8 g/dL (11.5-15.4) L 02/13/19 03:02 Hct 31.2 % (35.3-44.9) L 02/13/19 03:02 MCHC 31.4 g/dL (31.6-35.5) L 02/13/19 03:02 RDW 16.3 % (11.5-14.5) H 02/13/19 03:02 Plt Count 456 K/mcL (140-400) H 02/13/19 03:02 16.6 K/mcL (1.6-8.9) H 02/13/19 03:02 0.4 K/mcL (0.6-4.6) L 02/13/19 03:02 1.6 K/mcL (0.0-1.3) H 02/10/19 17:14 967 ng/mLFEU (0-500) H 02/10/19 17:14 ABG pH 7.48 pH Units (7.32-7.45) H 02/12/19 10:43 ABG pO2 59 mmHg (85-104) L 02/12/19 10:43 ABG HCO3 31 mEq/L (21-27) H 02/12/19 10:43 ABG Total CO2 33 mEq/L (20-26) H 02/12/19 10:43 ABG O2 Saturation 92 % (95-98) L 02/12/19 10:43 ABG Base Excess 7 mEq/L (-2 to 3) H 02/12/19 10:43 Sodium 135 mEq/L (136-145) L 02/13/19 03:02 Chloride 97 mEq/L (98-107) L 02/13/19 03:02 BUN 29 mg/dL (8-23) H 02/13/19 03:02 0.54 mg/dL (0.60-1.20) L 02/13/19 03:02 54 (6-26) H 02/13/19 03:02 Glucose 162 mg/dL (70-105) H 02/13/19 03:02 POC Glucose 146 mg/dL (70-99) H 02/12/19 17:07 278 (280-300) L 02/10/19 17:14 Lactic Acid 2.4 mmol/L (0.5-2.2) H 02/10/19 17:34 Calcium 10.4 mg/dL (8.6-10.3) H 02/11/19 06:04 B-Natriuretic Peptide 512 pg/mL (Less than 100) H 02/13/19 03:02 Trace-intact (Negative) H 02/10/19 23:52 Ur Squamous Epith Cells Moderate per lpf (None-Few) H 02/10/19 23:52 - Microbiology Findings Microbiology Findings: Microbiology, Last 48 Hours 02/11/19 12:10 Sputum Culture - Preliminary Sputum - Clinical Findings Intake & Output: Intake & Output 02/12/19 02/13/19 02/13/19 23:59 07:59 15:59 Intake Total 370 / 570 100 / 100 Output Total 200 / 500 Balance 170 / 70 100 / 100 Weight 70.1 kg Consult Discharge Plan - Plan Referrals: Aren Malik Jr, MD [Primary Care Provider] -
--- NOTE | 2019-02-13 09:54 | Internal Med Progress Note ---
Hospitalist Progress Note - Encounter Date of Encounter: 02/13/19 Time of Encounter: 09:52 - Subjective Interval History: Patient is still requiring BiPAP. Shortness of breath slight better while on BiPAP. Complained of anxiety-Ativan helped but does not last long and requesting more frequent. Review of the vitals with mild tachycardia. Review the lab still elevated white count with left shift, elevated BNP Patient denies fever chills nausea vomiting headache dizziness chest pain abdominal pain diarrhea - Exam Vitals: Temp Pulse Resp BP Pulse Ox 97.5 F L 110 26 135/95 93 02/13/19 07:43 02/13/19 07:43 02/13/19 07:51 02/13/19 07:43 02/13/19 07:51 Exam: .General appearance: No acute distress, A&O X 3. On occipitalis. Having breakfast. Appear anxious with some mouth breathing Head exam: Atraumatic Eye exam: EOMI, PERRLA ENT exam: Moist oral mucosa Neck nontender, supple Respiratory exam: Decreased breath sounds bilaterally more on right side than left Cardiovascular exam: Sinus tachycardia, no systolic murmur Abdominal exam: Soft, nontender, nondistended, positive bowel sounds Extremities exam: No calf tenderness, no pedal edema Present: Skin-no rash, warm, dry, intact Neurological exam: Alert, awake, oriented 3, CN II-XII intact, no focal deficits. - Assessment and Plan (1) Acute exacerbation of chronic obstructive airways disease Current Visit: No Status: Acute Assessment and Plan: History of advanced COPD. Patient is on 5 L home oxygen. Now BiPAP dependent. Continue IV steroid Solu-Medrol 60 mg IV every 6 hours will taper down eventually based on response, bronchodilators . Continue Levaquin and Zosyn. Pulmonologists on board-no further recommendation (2) Sepsis Current Visit: No Status: Acute Assessment and Plan: Patient presents with leukocytosis, tachycardia with source presumed to be pneumonia. Patient received 1 L of fluids in the ER. Blood pressure is been stable, not complete full 30 mL/kg given stable blood pressure and history of diastolic heart failure. Blood cultures with no growth yet initial lactate 2.4-repeat lactate normal. Continue antibiotics for pneumonia. (3) Pneumonia Current Visit: Yes Status: Acute Assessment and Plan: Patient has increasing lower lobe densities with known cavitary lung lesion. On admission is started patient on broad-spectrum antibiotics for hospital associated pneumonia. On admission is started -vancomycin, Levaquin, Zosyn. Negative MRSA nasal swab, Negative respiratory infection panel, Negative strep and legionella urinary antigen. Consulted infectious disease for recurrent pneumonia and cavitary lung lesion- of note ,extensive workup including TB fungal element were done in the past with negative finding. Patient also had EGD in October 2018 and November 2018 with nonsignificant finding. Flow cytometry were also negative. Patient did completed weeks of Augmentin and doxycycline with no improvement worse over. Plan for biopsy of the lesion on Thursday. Advised to continue Zosyn, Levaquin and added doxycycline. Stopped vancomycin his MRSA swab negative Pulmonologists on board and plan for biopsy tomorrow. Slight elevated white count - could be secondary to a reactive response to a steroid as patient already on broader spectrum antibiotic. Continue to monitor CBC (4) Acute and chronic respiratory failure with hypoxia Current Visit: No Status: Acute Assessment and Plan: Secondary to pneumonia and COPD exacerbation. BiPAP dependent at this time. As per patient see takes 5 L oxygen by nasal cannula at home because chronic respiratory failure due to COPD Patient also has anxiety therefore Ativan 0.5 mg every 6 hours when necessary. (5) Cavitary lesion of lung Current Visit: No Status: Chronic Assessment and Plan: Patient has known cavitary lung lesion that is been followed by pulmonology as an outpatient. CT of the chest reviewed and showed relatively stable lesion. Etiology infectious versus neoplasm. As mentioned above. ID and pulmonologists on board. IMPRESSION: No evidence of acute pulmonary embolism. Enlarged main pulmonary artery suggestive of chronic pulmonary hypertension. Interval increase in bibasilar pulmonary opacities, right greater than left. Findings may represent aspiration, and/or pneumonia. Trace pericardial effusion versus pericardial thickening. Cardiomegaly. Redemonstration of a cavitary lesion within right lower lobe, with air-fluid levels. This appears reasonably similar to previous examination accounting for differences in technique. Possibility of cavitary neoplasm should be excluded. Similar appearance of extensive changes of pulmonary fibrosis, bronchiectasis, and architectural distortion. Mild right hilar lymphadenopathy. No significant left hilar lymphadenopathy. RECOMMENDATIONS: Follow-up chest CT in three months. (6) Chronic diastolic heart failure Current Visit: Yes Status: Acute Assessment and Plan: Known diastolic heart failure. Slight elevation of BNP but better than last BNP. Trending of BNP therefore IV Lasix 40 mg IV daily started. Continue a strict I&O's with daily weight. Echo done November 2018 Impressions: LVEF 55%. Mild concentric left ventricular hypertrophy. Indeterminate diastolic function. Moderately dilated right ventricle with mild right ventricular hypokinesis. Mildly dilated right atrium. Mild tricuspid regurgitation. No pulmonary hypertension. Left Ventricular Wall Motion: Rest Echo Findings All wall segments showed normal motion. Will consult cardiology if needed (7) Sinus tachycardia Current Visit: Yes Status: Acute Assessment and Plan: As per patient she had baseline high heart rate while monitoring at home and get worse during acute episode of dyspnea. Better control after increasing dose of beta jane dose 100 mg by mouth twice a day. Most likely due to underlying acute illness as mentioned above (8) D-dimer, elevated Current Visit: Yes Status: Acute Assessment and Plan: Ruled out PE by CT angiogram. Doppler venous ultrasound with no DVT (9) DVT prophylaxis Current Visit: No Status: Acute Assessment and Plan: Heparin 5000 units subcutaneous - Time Spent with Patient Total time spent is greater than 50% in coordination of care (as documented) at patient's floor/unit and/or counseling patient: 25 - 35 minutes Plan of Care Discussed with: patient Internal Medicine: Result - Labs CBC & Chem 7: 02/13/19 03:02 02/13/19 03:02 Labs: Short CBC 02/13/19 Range/Units 03:02 WBC 17.9 H (4.3-11.1) K/mcL Hgb 9.8 L (11.5-15.4) g/dL Hct 31.2 L (35.3-44.9) % Plt Count 456 H (140-400) K/mcL Neutrophils # 16.6 H (1.6-8.9) K/mcL BMP 02/13/19 03:02 Sodium 135 L Potassium 3.6 Chloride 97 L Carbon Dioxide 29 BUN 29 H Creatinine 0.54 L Glucose 162 H Calcium 9.9 - ABG Interpretation ABG results: ABG ABG pH 7.48 pH Units (7.32-7.45) H 02/12/19 10:43 ABG pCO2 42 mmHg (35-45) 02/12/19 10:43 ABG pO2 59 mmHg (85-104) L 02/12/19 10:43 ABG O2 Saturation 92 % (95-98) L 02/12/19 10:43 PT/INR, D-dimer 967 ng/mLFEU (0-500) H 02/10/19 17:14 - Impressions Impressions Chest X-Ray 02/10/19 17:15 IMPRESSION: Background emphysematous changes. Superimposed right greater than left bibasilar airspace opacities and trace bilateral pleural effusions. Findings may reflect pneumonia and/or edema. D/ / 02/10/2019 17:39:43 Audrey Justin MD / nick Interpreting Provider: Audrey Justin MD Consult Discharge Plan - Plan Referrals: Aren Malik Jr, MD [Primary Care Provider] - (2) Sepsis Qualifiers: Sepsis type: sepsis due to unspecified organism Qualified Code(s): A41.9 - Sepsis, unspecified organism (3) Pneumonia Qualifiers: Pneumonia type: due to unspecified organism Laterality: bilateral Lung location: unspecified part of lung Qualified Code(s): J18.9 - Pneumonia, unspecified organism
[2019-02-13] MEDS: levoFLOXacin 750 MG/150 ML 750 MG/150 ML BAG IVPB SCH (18:04)
[2019-02-13 23:49] LABS: ABG Base Excess 8 mEq/L (-2 to 3); ABG HCO3 33 mEq/L (21-27); ABG Oxygen Saturation 93 % (95-98); ABG PCO2 44 mmHg (35-45); ABG PH 7.48 pH Units (7.32-7.45); ABG PO2 62 mmHg (85-104); ABG TCO2 34 mEq/L (20-26)
[2019-02-13] MEDS ORDERED: *HR* LORazepam 2 MG/ML VIAL IVP ONE (23:58)
[2019-02-14] MEDS: methylPREDNISolone 125 MG/2 ML VIAL IVP SCH ×2 (00:30→06:12)
[2019-02-14] MEDS: Piperacillin/Tazobactam 3.375 GM in 0.9 % Sodium Chloride Mini Bag 100 ML IVPB SCH ×3 (00:33→15:57)
[2019-02-14] MEDS: Ipratropium/Albuterol Neb 3 ML IH SCH ×5 (03:01→22:09)
--- NOTE | 2019-02-14 03:42 | Event Note ---
Date of Encounter: 02/13/19 Time of Encounter: 22:44 Alerted by patient's nurse FRANSISCO Mckeon that patient is BiPAP dependent and cannot tolerate Oxymask. SPO2 drops drastically with exertion or removal of BiPAP. Patient is additionally anxious and has been receiving Ativan but does not seem to help. Nurse requested I come see the patient. Plan is to have patient have biopsy of her lung tomorrow. Stat ABG of the left radial ordered which showed pH 7.48, PCO2 44, PO2 62, HCO3 33, total CO2 34, O2 saturation 93, and base excess 8 while on BiPAP with inspiratory O2 at 60.0. Pt. is also receiving DuoNebs PRN. Went to see the pt. who was slumped over the right side of the bed. Pt. was on BiPAP. Pt. stated she could not breathe and her SOB was worsening. Stat 1V Portable CXR ordered which showed a large right pneumothorax, new from prior CTA chest on 02/10/19. No evidence for tension. Likely atelectasis to right lower lung zone. COPD changes redemonstrated. Stat Surgery consult ordered and Dr. Deejay fay and made aware of the pt. and CXR results w/recommendation for pts. nurse to prepare supplies for chest tube placement. Pts. SpO2 87-90% on BiPAP. Nurse instructed to continue monitoring the pt. very closely and alert me immediately of any adverse changes.
--- NOTE | 2019-02-14 04:24 | AcuteCare Surgery Consult Note ---
Date of Encounter: 02/14/19 Time of Encounter: 04:22 Assessment and Plan (1) Pneumothorax on right Current Visit: Yes Status: Acute I discussed the rest x-ray findings with the patient and we will proceed with a chest tube/pneumocentesis catheter placement here at the bedside. The patient has already agreed and given her consent. History of Present Illness Consult date: 02/14/19 Reason for consult: other (SOB, Right pneumothorax) Requesting physician: Stan Leon History of present illness: Patient is a 73-year-old female with a past medical history significant for COPD/emphysema who has a history of a cavitary lung lesion being followed by pulmonary who presented herself to [facility] on 02/10/2019 secondary to increasing shortness of breath and cough. At home she had had issues with productive cough with sputum that was yellowish-green in nature. This history is obtained per the previous H&P notes. Is asked to see the patient today due to decrease in saturation while the patient was on positive pressure/BiPAP. Chest x-ray was performed which demonstrated a large volume right-sided pneumothorax. I was asked to evaluate the patient for a chest tube placement. The patient is having difficulty breathing and is sitting up with discomfort laying down and the sensation that she cannot catch her breath. She has obvious tachypnea as well and cannot verbalize responses. Past Med Surg Social Fam HX - Past Medical History Medical history: CHF, COPD, hypertension Additional medical history: mitral valve prolapse Psychiatric history: anxiety - Past Surgical History Surgical History: angioplasty/stent, breast surgery, cholecystectomy, hysterectomy, orthopedic, other, other Additional surgical history: left breast. back surgery. EGD. 2 heart stents. Nerve stimulator placement. - Social History Smoking Status: Former smoker Smokeless Tobacco Status: No Alcohol use: none Drug use: none - Family History Brother Living Status: Hx Family Cardiac Disorders: Yes Mother Living Status: Hx Family Cardiac Disorders: Yes ("artery disease", CHF) Hx Family GI Disorders: Yes (ulcers) Hx Family Endocrine Disorder: Yes Father Living Status: Hx Family Cardiac Disorders: Yes ("valve problems") Medications and Allergies Citalopram [CeleXA] 20 mg PO DAILY 02/05/16 [History] Loratadine [Claritin] 10 mg PO DAILY 02/05/16 [History] Lovastatin [Mevacor] 40 mg PO HS 02/05/16 [History] Metoprolol [Lopressor] 25 mg PO BID 02/05/16 [History] Nitroglycerin [Nitrostat] 0.4 mg SL Q5M PRN 02/05/16 [History] Albuterol Sulfate [Albuterol Inhaler] 2 puff IH Q4HR PRN #2 hfa.aer.[id number] 02/08/16 [Rx] Aspirin [Lo-Dose Aspirin EC] 81 mg PO DAILY 11/12/18 [History] Budesonide/Formoterol 160/4.5 [Symbicort 160/4.5] 2 puff IH BIDR 11/12/18 [History] L. Acidophilus/Pectin, [place] [Acidophilus Probiotic Capsule] 1 cap PO DAILY 11/12/18 [History] Multivitamin [One Daily] 1 tab PO DAILY 11/12/18 [History] raNITIdine HCl [Zantac] 150 mg PO BID 11/12/18 [History] Menthol [Cough Drops] 9.1 mg PO Q2H PRN #0 lozenge 11/19/18 [Rx] Ipratropium/Albuterol Neb [Duoneb] 3 ml IH Q4HR PRN 12/09/18 [History] Melatonin 6 mg PO HS 12/09/18 [History] Guaifenesin [Mucinex] 600 mg PO BID PRN 12/24/18 [History] Potassium Chloride [K-Tab ER] 20 meq PO DAILY 12/24/18 [History] Furosemide [Lasix] 40 mg PO QAM PRN #30 tablet 12/28/18 [Rx] Albuterol Neb [Proventil Neb] 2.5 mg PO TID PRN 02/11/19 [History] Benzonatate [Tessalon] 200 mg PO HS PRN 02/11/19 [History] Diclofenac Sodium [Voltaren] 75 mg PO DAILY PRN 02/11/19 [History] Nystatin [Nystatin Suspension] 4 ml PO QID 02/11/19 [History] Promethazine [Phenergan] 25 mg PO Q6H PRN 02/11/19 [History] Umeclidinium Brm/Vilanterol Tr [Anoro Ellipta 62.5-25 Mcg INH] 2 puff PO DAILY 02/11/19 [History] Allergy/AdvReac Type Severity Reaction Status Date / Time clarithromycin [From Biaxin] Allergy Gastrointestinal Verified 02/11/19 14:48 Upset codeine AdvReac See Verified 02/11/19 14:48 Comments lansoprazole [From Prevacid] AdvReac ulcer Verified 02/11/19 14:48 lisinopril AdvReac Cough Verified 02/11/19 14:48 meloxicam [From Mobic] AdvReac ulcer Verified 02/11/19 14:48 opium (anthroposophic) AdvReac nausea/vomi Verified 02/11/19 14:48 [Opium (Anthroposophic)] ting Review of Systems All systems PM: reviewed and no additional remarkable complaints except as st ated All systems PM: The remainder of the systems were reviewed and are negative General Surgery Exam Initial Vital Signs Temp Pulse Resp BP Pulse Ox 97.5 F L 117 26 132/73 87 02/10/19 16:49 02/10/19 16:49 02/10/19 16:49 02/10/19 16:49 02/10/19 16:49 - General physical appearance severe distress - Eyes PERRL, normal ocular movement - Respiratory other (Tachypnea. Breath sounds noted in the left lung field but absent breath sounds noted on the right side.) - Cardiovascular Cardiovascular exam: Present: tachycardia, no murmurs/rubs/gallops - Abdomen Abdomen general surgery: Present: bowel sounds present, soft, non tender - Musculoskeletal Present: other (No clubbing or cyanosis evident) - Psychiatric Psychiatric general surgery: Present: A&Ox3, other (He should not take Unable to give response) Exam Initial Vital Signs Temp Pulse Resp BP Pulse Ox 97.5 F L 117 26 132/73 87 02/10/19 16:49 02/10/19 16:49 02/10/19 16:49 02/10/19 16:49 02/10/19 16:49 Results - Labs 02/13/19 03:02 02/13/19 03:02 Abnormal lab results WBC 17.9 K/mcL (4.3-11.1) H 02/13/19 03:02 RBC 3.37 M/mcL (3.82-4.97) L 02/13/19 03:02 Hgb 9.8 g/dL (11.5-15.4) L 02/13/19 03:02 Hct 31.2 % (35.3-44.9) L 02/13/19 03:02 MCHC 31.4 g/dL (31.6-35.5) L 02/13/19 03:02 RDW 16.3 % (11.5-14.5) H 02/13/19 03:02 Plt Count 456 K/mcL (140-400) H 02/13/19 03:02 16.6 K/mcL (1.6-8.9) H 02/13/19 03:02 0.4 K/mcL (0.6-4.6) L 02/13/19 03:02 1.6 K/mcL (0.0-1.3) H 02/10/19 17:14 967 ng/mLFEU (0-500) H 02/10/19 17:14 ABG pH 7.48 pH Units (7.32-7.45) H 02/13/19 23:42 ABG pO2 62 mmHg (85-104) L 02/13/19 23:42 ABG HCO3 33 mEq/L (21-27) H 02/13/19 23:42 ABG Total CO2 34 mEq/L (20-26) H 02/13/19 23:42 ABG O2 Saturation 93 % (95-98) L 02/13/19 23:42 ABG Base Excess 8 mEq/L (-2 to 3) H 02/13/19 23:42 Sodium 135 mEq/L (136-145) L 02/13/19 03:02 Chloride 97 mEq/L (98-107) L 02/13/19 03:02 BUN 29 mg/dL (8-23) H 02/13/19 03:02 0.54 mg/dL (0.60-1.20) L 02/13/19 03:02 54 (6-26) H 02/13/19 03:02 Glucose 162 mg/dL (70-105) H 02/13/19 03:02 POC Glucose 146 mg/dL (70-99) H 02/12/19 17:07 278 (280-300) L 02/10/19 17:14 Lactic Acid 2.4 mmol/L (0.5-2.2) H 02/10/19 17:34 Calcium 10.4 mg/dL (8.6-10.3) H 02/11/19 06:04 B-Natriuretic Peptide 512 pg/mL (Less than 100) H 02/13/19 03:02 Trace-intact (Negative) H 02/10/19 23:52 Ur Squamous Epith Cells Moderate per lpf (None-Few) H 02/10/19 23:52 All other labs normal. - Imaging Chest x-ray: report reviewed, image reviewed (Wrist x-ray image report reviewed by me demonstrating a large volume right-sided pneumothorax) Consult Discharge Plan - Plan Referrals: Aren Malik Jr, MD [Primary Care Provider] -
--- NOTE | 2019-02-14 04:28 | Acute Care Surg Procedure Note ---
Date of procedure: 02/14/19 Pre-op diagnosis: Right pneumothorax Post-op diagnosis: same Procedure: Right-sided pneumocentesis catheter placement Complications: None Findings: After properly identifying the patient and obtaining consent the patient's anterior right chest was prepped and draped in a normal fashion. Lidocaine with epinephrine was used to anesthetize the epidermal and dermal layer in the midclavicular line and proximally between the second and third rib. An 11 blade scalpel was then used to make an incision and further infiltration just above the third rib with lidocaine towards the pleura was performed until air was withdrawn within a syringe. Pieces cannot was brought onto the field and using the Seldinger technique the catheter was advanced into the pleural space. It was secured in place with a 3-0 silk suture and an OpSite was placed over the insertion site. The tube was then connected to a Pleur-evac with immediate bubbling noted within the chamber consistent with reexpansion of the lung. Kvng carver also experienced increased coughing. Patient noted immediate improvement in her breathing. Chest x-ray pending.
[2019-02-14] MEDS: *HR* Heparin 5,000 UNIT/ML VIAL SQ SCH ×3 (06:12→21:16)
[2019-02-14] MEDS: Doxycycline 100 MG CAPSULE PO SCH ×2 (06:14→17:13)
[2019-02-14 07:32] LABS: Basophils % 0.1 %; Hematocrit 32.2 % (35.3-44.9); Hemoglobin 10.2 g/dL (11.5-15.4); Immature Granulocytes % 0.9 % (0-4); Lymphocytes # 0.7 K/mcL (0.6-4.6); Lymphocytes % 3.8 %; Mean Corpuscular HGB Conc 31.7 g/dL (31.6-35.5); Mean Corpuscular Hemoglobin 29.1 pg (28.0-33.3); Mean Platelet Volume 10.8 fL (9.4-12.4); Monocytes # 1.3 K/mcL (0.0-1.3); Monocytes % 7.1 %; Neutrophils # 15.7 K/mcL (1.6-8.9); Platelet Count 427 K/mcL (140-400); Red Cell Distribution Width 15.9 % (11.5-14.5); Segmented Neutrophils % 88.1 %; White Blood Count 17.8 K/mcL (4.3-11.1)
[2019-02-14 08:04] LABS: BUN/Creatinine Ratio 93 (6-26); Blood Urea Nitrogen 43 mg/dL (8-23); Calcium 10.1 mg/dL (8.6-10.3); Carbon Dioxide 32 mEq/L (23-29); Chloride 98 mEq/L (98-107); Glucose 201 mg/dL (70-105); Osmolality,Calculated 307 (280-300); Potassium 3.3 mEq/L (3.5-5.1); Sodium 140 mEq/L (136-145); eGFR For African Americans > 60 (> 60); eGFR For Non-African Americans > 60 (> 60)
[2019-02-14] MEDS: Nystatin SUSP 5 ML UD.LIQ PO SCH ×4 (08:11→21:16)
[2019-02-14] MEDS: Furosemide 40 MG/4 ML VIAL IVP SCH (08:11)
[2019-02-14] MEDS: Aspirin Enteric Coated 81 MG Tablet PO SCH (08:13)
[2019-02-14] MEDS: Loratadine 10 MG TABLET PO SCH (08:13)
[2019-02-14] MEDS: Lactobacillus 1 EACH CAP.SPRINK PO SCH (08:13)
[2019-02-14] MEDS: Metoprolol 100 MG TABLET PO SCH ×2 (08:13→21:16)
[2019-02-14] MEDS: *HR* HYDROcodone/Acet 5/325 mg TABLET PO PRN ×4 (08:13→22:37)
[2019-02-14] MEDS: Acetaminophen 325 MG TABLET PO PRN (11:46)
--- NOTE | 2019-02-14 12:09 | Pulmonology Progress Note ---
Date of Encounter: 02/14/19 Time of Encounter: 12:00 Assessment and Plan (1) Acute and chronic respiratory failure with hypoxia Current Visit: No Status: Acute To continue O2 supplementation as oxygenation and ventilation is stable. We will hold off noninvasive ventilation in the setting of right-sided pneumothorax. (2) Pneumothorax on right Current Visit: Yes Status: Acute I repeated the chest x-ray which showed near complete resolution of right-sided pneumothorax to continue chest tube with suction spoke with we will go ahead with CT-guided biopsy tomorrow morning with possible chest tube replacement if needed. To keep her nothing by mouth after midnight the plan of care was discussed with her registered nurse. Patient verbalized understanding the plan of care. (3) COPD (chronic obstructive pulmonary disease) Current Visit: Yes Status: Chronic Continue the current regimen of bronchodilators. Qualifiers: COPD type: chronic bronchitis Chronic bronchitis type: unspecified Qualified Code(s): J42 - Unspecified chronic bronchitis (4) Cavitary lesion of lung Current Visit: No Status: Chronic Infectious versus inflammatory versus malignancy patient had 2 bronchoscopy which came out negative without much diagnosis counseled about CT-guided biopsy patient got convinced that she is ready for CT-guided biopsy and she is aware of that in case the repeat pneumothorax And she is already has a chest tube in place. I spoke with the the patient and her family everybody verbalized understanding. Subjective Principal diagnosis: Dyspnea Interval history: Patient was admitted for acute on chronic respiratory failure patient is COPD with severe bullous disease complicated by right lower lobe cavitary lesion had to bronchoscopy which was negative patient was contemplating on CT-guided biopsy risk officer she developed and right loss pneumothorax supported by chest tube placement by general surgery repeat chest x-ray which was done by me showed almost complete resolution of the pneumothorax. Patient was agreeable for the lung biopsy as she is already has chest tube catheter,spoke with interventional radiology Since his pneumothorax is stable patient is scheduled for her right lower lobe CT-guided lung biopsy. Patient says her shortness of breath is lot better after the chest tube patient has her appetite back wants to eat. Much cough or sputum production. No fever or chills or any other constitutional symptoms. Objective PUL Vital signs: Last Vital Signs Temp 97.9 F 02/14/19 07:46 Pulse 100 02/14/19 11:55 Resp 18 02/14/19 11:55 BP 123/73 02/14/19 11:55 Pulse Ox 93 02/14/19 11:55 General appearance: no acute distress Auscultation: bilateral: diminished breath sounds (decreased air entry) Cardiovascular: regular rate and rhythm Gastrointestinal: normoactive bowel sounds Extremities: no cyanosis, no edema Musculoskeletal: no deformities Gait: other normal mental status, non-focal exam mood appropriate Results - Laboratory Findings CBC and BMP: 02/14/19 07:03 02/14/19 07:03 ABG ABG pH 7.48 pH Units (7.32-7.45) H 02/13/19 23:42 ABG pCO2 44 mmHg (35-45) 02/13/19 23:42 ABG pO2 62 mmHg (85-104) L 02/13/19 23:42 ABG O2 Saturation 93 % (95-98) L 02/13/19 23:42 PT/INR, D-dimer 967 ng/mLFEU (0-500) H 02/10/19 17:14 Abnormal lab findings: Abnormal lab results WBC 17.8 K/mcL (4.3-11.1) H 02/14/19 07:03 RBC 3.50 M/mcL (3.82-4.97) L 02/14/19 07:03 Hgb 10.2 g/dL (11.5-15.4) L 02/14/19 07:03 Hct 32.2 % (35.3-44.9) L 02/14/19 07:03 MCHC 31.4 g/dL (31.6-35.5) L 02/13/19 03:02 RDW 15.9 % (11.5-14.5) H 02/14/19 07:03 Plt Count 427 K/mcL (140-400) H 02/14/19 07:03 15.7 K/mcL (1.6-8.9) H 02/14/19 07:03 0.4 K/mcL (0.6-4.6) L 02/13/19 03:02 1.6 K/mcL (0.0-1.3) H 02/10/19 17:14 967 ng/mLFEU (0-500) H 02/10/19 17:14 ABG pH 7.48 pH Units (7.32-7.45) H 02/13/19 23:42 ABG pO2 62 mmHg (85-104) L 02/13/19 23:42 ABG HCO3 33 mEq/L (21-27) H 02/13/19 23:42 ABG Total CO2 34 mEq/L (20-26) H 02/13/19 23:42 ABG O2 Saturation 93 % (95-98) L 02/13/19 23:42 ABG Base Excess 8 mEq/L (-2 to 3) H 02/13/19 23:42 Sodium 135 mEq/L (136-145) L 02/13/19 03:02 Potassium 3.3 mEq/L (3.5-5.1) L 02/14/19 07:03 Chloride 97 mEq/L (98-107) L 02/13/19 03:02 Carbon Dioxide 32 mEq/L (23-29) H 02/14/19 07:03 BUN 43 mg/dL (8-23) H 02/14/19 07:03 0.46 mg/dL (0.60-1.20) L 02/14/19 07:03 93 (6-26) H 02/14/19 07:03 Glucose 201 mg/dL (70-105) H 02/14/19 07:03 POC Glucose 146 mg/dL (70-99) H 02/12/19 17:07 307 (280-300) H 02/14/19 07:03 Lactic Acid 2.4 mmol/L (0.5-2.2) H 02/10/19 17:34 Calcium 10.4 mg/dL (8.6-10.3) H 02/11/19 06:04 B-Natriuretic Peptide 512 pg/mL (Less than 100) H 02/13/19 03:02 Trace-intact (Negative) H 02/10/19 23:52 Ur Squamous Epith Cells Moderate per lpf (None-Few) H 02/10/19 23:52 - Microbiology Findings Microbiology Findings: Microbiology, Last 48 Hours 02/11/19 12:10 Sputum Culture - Preliminary Sputum Fungal Elements - Clinical Findings Intake & Output: Intake & Output 02/13/19 02/14/19 02/14/19 23:59 07:59 15:59 Intake Total 100 / 300 100 / 100 Output Total 300 / 300 50 / 650 600 / 650 Balance -200 / 0 50 / -550 -600 / -550 Weight 65.4 kg Consult Discharge Plan - Plan Referrals: Aren Malik Jr, MD [Primary Care Provider] -
--- NOTE | 2019-02-14 13:07 | Internal Med Progress Note ---
Hospitalist Progress Note - Encounter Date of Encounter: 02/14/19 Time of Encounter: 13:05 - Subjective Interval History: Overnight had worsening SOB, w CXR showing PTX and thus GenSurg placed chest tube. Pt states feeling much less uncomfortable and less SOB today. She and daughter are wondering if this would be good time to get biopsy of lung since sh felecia currently has a chest tube already. - Exam Vitals: Temp Pulse Resp BP Pulse Ox 97.9 F 100 18 123/73 93 02/14/19 07:46 02/14/19 11:55 02/14/19 11:55 02/14/19 11:55 02/14/19 11:55 Exam: General: good eye contact, chronically ill appearing and is mildly tachypneic Thoracic: Does have decent aeration bilaterally, does have biphasic breath sounds throughout with prolonged expiration Cardio: Normal S1 and S2, regular rhythm, tachycardic Abdomen: Soft, nontender Extremities: Warm, well perfused. DP pulses 2+ b/l. Does have pitting edema to knees. Neuro: Awake, fully oriented. Speech fluent - Summary of Assessment and Plan Summary of Assessment and Plan: Acute pneumothorax: s/p chest tube by GenSurg Dr Villalba on 02/14, tube to suction - GenSurg following, appreciate rec's COPD exacerbation: improving - space nebs to q6h - decrease solumedrol from 60 q6h to 40 q8h Pneumonia: - continue zosyn and doxycycline, will ask ID to clarify their rec for doxy Cavitary lung lesion: now that pt has chest tube, will ask pulm re biopsy Acute on chronic hypoxic and hypercapneic respiratory failure: weaned to home 5L O2 - supplemental O2, wean as able - IS - walk test prior to discharge Sepsis: Suspected infection as above. Initial lactate 2s now improved. - BCx x2 pending - abx as above PPx: sqh FEN: cardiac then NPO@[place], no MIVF Lines: PIV Consults: Pulm, ID, Lay Code: DNRCC-A Dispo: patient requires inpatient eval and management at this time. Anticipate 2-3 days. Will be homegoing Internal Medicine: Result - Labs CBC & Chem 7: 02/14/19 07:03 02/14/19 07:03 Labs: Short CBC 02/14/19 Range/Units 07:03 WBC 17.8 H (4.3-11.1) K/mcL Hgb 10.2 L (11.5-15.4) g/dL Hct 32.2 L (35.3-44.9) % Plt Count 427 H (140-400) K/mcL Neutrophils # 15.7 H (1.6-8.9) K/mcL BMP 02/14/19 07:03 Sodium 140 Potassium 3.3 L Chloride 98 Carbon Dioxide 32 H BUN 43 H Creatinine 0.46 L Glucose 201 H Calcium 10.1 - ABG Interpretation ABG results: ABG ABG pH 7.48 pH Units (7.32-7.45) H 02/13/19 23:42 ABG pCO2 44 mmHg (35-45) 02/13/19 23:42 ABG pO2 62 mmHg (85-104) L 02/13/19 23:42 ABG O2 Saturation 93 % (95-98) L 02/13/19 23:42 PT/INR, D-dimer 967 ng/mLFEU (0-500) H 02/10/19 17:14 - Impressions Impressions Chest CTA 02/10/19 18:22 IMPRESSION: 1. No evidence of acute pulmonary embolism. Enlarged main pulmonary artery suggestive of chronic pulmonary hypertension. 2. Interval increase in bibasilar pulmonary opacities, right greater than left. Trace right pleural effusion. Findings may represent new aspiration, pulmonary edema, and/or pneumonia. 3. Trace pericardial effusion versus pericardial thickening. Cardiomegaly. 4. Redemonstration of large cavitary lesion within right lower lobe, with air-fluid levels. Differential includes cavitary neoplasm, cavitary pneumonia, or lung abscess. 5. Similar appearance of extensive changes of pulmonary fibrosis, bronchiectasis, and architectural distortion bilaterally. 6. Mild right hilar lymphadenopathy. RECOMMENDATIONS: Follow-up chest CT in 1-2 months. D/ / 02/10/2019 19:47:33 Bob Justin MD / [place] Interpreting Provider: Bob Justin MD Chest X-Ray 02/14/19 02:43 IMPRESSION: Large right pneumothorax, new from prior CTA chest 02/10/2019. No evidence for tension. Likely atelectasis to right lower lung zone. COPD changes redemonstrated. The findings were sent to the Radiology Results Communication Center at 3:11 am on 02/14/2019to be communicated to a licensed caregiver. D/ / 02/14/2019 07:17:21 Helder Mckenzie MD / [place] Interpreting Provider: Helder Mckenzie MD Chest X-Ray 02/14/19 04:15 IMPRESSION: Interval placement of right-sided chest tube with significant re-expansion of the right lung with still persistent small right pneumothorax. Improved aeration to the right lower lung zone with still some atelectasis or infiltrate along with a small right pleural effusion. Stable left basilar atelectasis or infiltrate. COPD. D/ / 02/14/2019 07:31:28 Helder Mckenzie MD / [facility] Interpreting Provider: Helder Mckenzie MD Consult Discharge Plan - Plan Referrals: Aren Malik Jr, MD [Primary Care Provider] -
[2019-02-14] MEDS: MethylPREDNISolone 40 MG/ML VIAL IVP SCH (15:57)
--- NOTE | 2019-02-14 16:21 | Infectious Disease Progress No ---
ID Progress Note Date of Encounter: 02/14/19 Time of Encounter: 16:19 - Subjective Subjective: Patient seen and examined. doing well clinically. no chest pain no shortness of breath. cno diarrhea no urinary symptoms. Vital signs afebrile tachycardic Labs: Reviewed - Objective CBC & Chem 7: 02/14/19 07:03 02/14/19 07:03 - Exam Vitals: Temp Pulse Resp BP Pulse Ox 97.6 F 109 16 120/74 96 02/14/19 16:08 02/14/19 16:08 02/14/19 16:08 02/14/19 16:08 02/14/19 16:08 Exam: GENERAL: Comfortable. Laying in bed NAD HEENT: EL, EOMI LUNGS: Good air sounds bilaterally, no wheezing or rhonchi CV: RRR, S1 S2 ABDOMEN: Soft, nontender, + bowel sounds EXT: Adequate perfusion. No edema NEURO: A&OX3; no focal deficit - Assessment and Plan (1) Sepsis Current Visit: No Status: Acute Patient had 3 SIRS criteria on admission Likely secondary to pneumonia Qualifiers: Sepsis type: sepsis due to unspecified organism Qualified Code(s): A41.9 - Sepsis, unspecified organism SNOMED Code(s): 79248841 (2) Acute respiratory failure Current Visit: Yes Status: Acute Patient requiring high O2 demands. Currently she is on CPAP. Likely multifactorial due to underlying COPD, pulmonary fibrosis, bronchiectasis, possible pneumonia and cavitary lung lesion Prognosis guarded. Qualifiers: Respiratory failure complication: hypoxia Qualified Code(s): J96.01 - Acute respiratory failure with hypoxia SNOMED Code(s): 10000700 (3) Healthcare-associated pneumonia Current Visit: Yes Status: Acute CT revealed right basilar infiltrate concerning for pneumonia aspiration versus other Causative organism not clear. MRSA screen was negative. Urine legionella and pneumococcal antigen negative. Respiratory infectious panel negative Sputum culture 02/11/2019. Gram-positive cocci await final identification Patient started on Zosyn Agree with Zosyn for now. I benefit from adding doxycycline. Discussed with the pulmonary team. No plans for bronchoscopy at this point. Due to the patient's high risk SNOMED Code(s): 560149505, 386616616 (4) Cavitary lesion of lung Current Visit: No Status: Chronic First seen in 11/11/2018. Extensive workup including for TB, fungal element were all negative. Status post bronchoscopy 11/15/2018 and 12/13/2018. Both were also nonrevealing. Cultures were negative. Fungal cultures and AFB were negative. And flow cytometry were almost negative. Patient was treated with 8 weeks of Augmentin and doxycycline with no improvement whatsoever High index of suspicion for malignancy After long discussion with pulmonary, if the patient is stable we will might do a biopsy of the lesion on Thursday Prognosis is guarded at best SNOMED Code(s): 759173152 (5) Pulmonary fibrosis Current Visit: Yes Status: Acute SNOMED Code(s): 12521551 (6) CAD (coronary artery disease) Current Visit: No Status: Chronic Qualifiers: Coronary Disease-Associated Artery/Lesion type: [place] artery [place] vs. transplanted heart: unspecified whether [place] or transplanted heart Associated angina: without angina Qualified Code(s): I25.10 - Atherosclerotic heart disease of [place] coronary artery without angina pectoris SNOMED Code(s): 81131253 (7) Hyperlipidemia Current Visit: No Status: Acute Qualifiers: Hyperlipidemia type: Mixed hyperlipidemia SNOMED Code(s): 96536805 (8) Leukocytosis Current Visit: Yes Status: Acute likely due to steroids Qualifiers: Leukocytosis type: unspecified Qualified Code(s): D72.829 - Elevated white blood cell count, unspecified SNOMED Code(s): 994796141, 016651032 Consult Discharge Plan - Plan Referrals: Aren Malik Jr, MD [Primary Care Provider] -
[2019-02-14] MEDS: *HR* LORazepam 0.5 MG TABLET PO PRN (21:18)
[2019-02-15] MEDS: MethylPREDNISolone 40 MG/ML VIAL IVP SCH (00:26)
[2019-02-15] MEDS: Piperacillin/Tazobactam 3.375 GM in 0.9 % Sodium Chloride Mini Bag 100 ML IVPB SCH ×3 (00:35→17:07)
[2019-02-15] MEDS ORDERED: traMADol 50 MG TABLET PO ONE (00:42)
[2019-02-15] MEDS: Ipratropium/Albuterol Neb 3 ML IH SCH ×4 (03:57→20:58)
[2019-02-15 04:46] LABS: Hematocrit 31.8 % (35.3-44.9); Mean Corpuscular HGB Conc 31.4 g/dL (31.6-35.5); Mean Corpuscular Hemoglobin 29.2 pg (28.0-33.3); Mean Platelet Volume 10.5 fL (9.4-12.4); Platelet Count 419 K/mcL (140-400); Red Blood Count 3.42 M/mcL (3.82-4.97); Red Cell Distribution Width 15.9 % (11.5-14.5); White Blood Count 17.3 K/mcL (4.3-11.1)
[2019-02-15 05:00] LABS: BUN/Creatinine Ratio 94 (6-26); Blood Urea Nitrogen 46 mg/dL (8-23); Calcium 9.9 mg/dL (8.6-10.3); Carbon Dioxide 36 mEq/L (23-29); Chloride 96 mEq/L (98-107); Glucose 174 mg/dL (70-105); Magnesium 1.9 mg/dL (1.6-2.6); Osmolality,Calculated 306 (280-300); Potassium 3.1 mEq/L (3.5-5.1); Sodium 140 mEq/L (136-145); eGFR For African Americans > 60 (> 60); eGFR For Non-African Americans > 60 (> 60)
[2019-02-15] MEDS: Doxycycline 100 MG CAPSULE PO SCH (05:15)
[2019-02-15] MEDS: *HR* Heparin 5,000 UNIT/ML VIAL SQ SCH ×3 (05:15→21:51)
--- NOTE | 2019-02-15 07:49 | Internal Med Progress Note ---
Hospitalist Progress Note - Encounter Date of Encounter: 02/15/19 Time of Encounter: 07:49 - Subjective Interval History: Pt states that she feels better now than when she came in, about the same as yesterday which is to say better since chest tube insertion. She does not like being NPO but is patiently awaiting her biopsy today. Denies CP, no N/V/D. - Exam Vitals: Temp Pulse Resp BP Pulse Ox 97.6 F 70 16 140/88 94 02/15/19 06:54 02/15/19 06:54 02/15/19 06:54 02/15/19 06:54 02/15/19 06:54 Exam: General: good eye contact, chronically ill appearing but no increased WOB Thoracic: Does have decent aeration bilaterally, does have biphasic breath sounds throughout with prolonged expiration Cardio: Normal S1 and S2, regular rhythm, tachycardic Abdomen: Soft, nontender Extremities: Warm, well perfused. DP pulses 2+ b/l. Does have pitting edema to knees. Neuro: Awake, fully oriented. Speech fluent - Summary of Assessment and Plan Summary of Assessment and Plan: Acute pneumothorax: s/p chest tube by GenSurg Dr Villalba on 02/14, tube to suction, does still have air leak today - GenSurg following, appreciate rec's COPD exacerbation: improving - continue nebs q6h - decrease solumedrol from 40 q8h to prednisone 60 daily Pneumonia: - continue zosyn and doxycycline per ID Cavitary lung lesion: - CT guided lung biopsy today Acute on chronic hypoxic and hypercapneic respiratory failure: still desatting occasionally, increased overnight to 12L, weaned this AM to 8L O2 - supplemental O2, wean as able - IS - walk test prior to discharge Sepsis: Suspected infection as above. Initial lactate 2s now improved. BCx ngtd. Abx as above. Hypokalemia: replace and monitor PPx: sqh FEN: NPO then resume cardiac, no MIVF Lines: PIV Consults: Pulm, ID, GenSurg Code: DNRCC-A Dispo: patient requires inpatient eval and management at this time. Anticipate 2-3 days. Will be homegoing Internal Medicine: Result - Labs CBC & Chem 7: 02/15/19 04:20 02/15/19 04:20 Labs: Short CBC 06/18/19 Range/Units 04:20 WBC 17.3 H (4.3-11.1) K/mcL Hgb 10.0 L (11.5-15.4) g/dL Hct 31.8 L (35.3-44.9) % Plt Count 419 H (140-400) K/mcL BMP 02/14/19 02/15/19 07:03 04:20 Sodium 140 140 Potassium 3.3 L 3.1 L Chloride 98 96 L Carbon Dioxide 32 H 36 H BUN 43 H 46 H Creatinine 0.46 L 0.49 L Glucose 201 H 174 H Calcium 10.1 9.9 - ABG Interpretation ABG results: ABG ABG pH 7.48 pH Units (7.32-7.45) H 02/13/19 23:42 ABG pCO2 44 mmHg (35-45) 02/13/19 23:42 ABG pO2 62 mmHg (85-104) L 02/13/19 23:42 ABG O2 Saturation 93 % (95-98) L 02/13/19 23:42 PT/INR, D-dimer 967 ng/mLFEU (0-500) H 02/10/19 17:14 - Impressions Impressions Chest X-Ray 02/14/19 02:43 IMPRESSION: Large right pneumothorax, new from prior CTA chest 02/10/2019. No evidence for tension. Likely atelectasis to right lower lung zone. COPD changes redemonstrated. The findings were sent to the Radiology Results Communication Center at 3:11 am on 02/14/2019to be communicated to a licensed caregiver. D/ / 02/14/2019 07:17:21 Helder Mckenzie MD / [place] Interpreting Provider: Helder Mckenzie MD Chest X-Ray 02/14/19 04:15 IMPRESSION: Interval placement of right-sided chest tube with significant re-expansion of the right lung with still persistent small right pneumothorax. Improved aeration to the right lower lung zone with still some atelectasis or infiltrate along with a small right pleural effusion. Stable left basilar atelectasis or infiltrate. COPD. D/ / 02/14/2019 07:31:28 Helder Mckenzie MD / [place] Interpreting Provider: Helder Mckenzie MD Chest X-Ray 02/14/19 12:52 IMPRESSION: 1. Right pleural catheter without convincing evidence of a pneumothorax. 2. Persistent prominence of the interstitial markings bilaterally with patchy bibasilar opacification. 3. Likely small bilateral pleural effusions. D/ / Tyron Ballard MD / Tyron Ballard MD Interpreting Provider: Tyron Ballard MD Chest X-Ray 02/15/19 07:10 IMPRESSION: 1. Right pleural catheter unchanged in position with question of a trace right apical pneumothorax. 2. Interstitial opacities bilaterally with patchy bibasilar opacification. 3. Likely bilateral pleural effusions. D/ / Tyron Ballard MD / Tyron Ballard MD Interpreting Provider: Tyron Ballard MD Consult Discharge Plan - Plan Referrals: Aren Malik Jr, MD [Primary Care Provider] -
[2019-02-15] MEDS: predniSONE 20 MG TABLET PO SCH (08:27)
[2019-02-15] MEDS: Nystatin SUSP 5 ML UD.LIQ PO SCH ×4 (08:27→21:47)
[2019-02-15] MEDS: Furosemide 40 MG/4 ML VIAL IVP SCH (08:28)
[2019-02-15] MEDS: Lactobacillus 1 EACH CAP.SPRINK PO SCH (08:28)
[2019-02-15] MEDS: Metoprolol 100 MG TABLET PO SCH ×2 (08:28→21:47)
[2019-02-15] MEDS: Aspirin Enteric Coated 81 MG Tablet PO SCH (08:28)
[2019-02-15] MEDS: Loratadine 10 MG TABLET PO SCH (08:28)
[2019-02-15] MEDS: Acetaminophen 325 MG TABLET PO PRN ×2 (08:46→21:46)
--- NOTE | 2019-02-15 09:03 | AcuteCareSurgery Progress Note ---
Date of Encounter: 02/15/19 Time of Encounter: 08:00 - Assessment and Plan (1) Pneumothorax on right Current Visit: Yes Status: Acute Right chest tube with continued air leak. Maintain current therapy to wall suction. Repeat CXR in a.m. Subjective Patient reports: feels better, still having pain, pain is less, other (reports breathing is improved) Objective Vital Signs - Last 8 Hours Temp Pulse Resp BP Pulse Ox 02/15/19 06:54 97.6 F 70 16 140/88 94 02/15/19 05:51 98 F 99 22 137/85 90 02/15/19 03:59 14 78 Intake and Output 02/14/19 02/15/19 02/15/19 23:59 07:59 15:59 Intake Total 340 / 690 100 / 100 Balance 340 / 40 100 / 100 Intake: IV Fluids 100 / 450 100 / 100 Zosyn 3.375 GM In 0.9 % Sodium 100 / 300 100 / 100 Chloride (Mini-Bag +) 100 ML @ 25 mls/hr IVPB Q8HR [facility] Rx#: [id number] Oral 240 / 240 Other: Meal Dinner Percent of Meal Consumed 85% Weight 64.9 kg Patient Weight 02/15/19 23:59 Weight 64.9 kg - General physical appearance well nourished, no distress - Eyes normal ocular movement - ENT atraumatic, normocephalic - Neck Neck exam: no lymphadectomy - Respiratory other (decreased, course, air leak remains) - Cardiovascular Cardiovascular exam: Present: RRR - Abdomen Abdomen: Present: bowel sounds present, soft, non tender - Integumentary no rash - Neurologic normal sensation - Musculoskeletal normal posture - Psychiatric oriented to time, oriented to person, oriented to place - Labs 02/15/19 04:20 02/15/19 04:20 Diabetes panel 02/15/19 Range/Units 04:20 Sodium 140 (136-145) mEq/L Potassium 3.1 L (3.5-5.1) mEq/L Chloride 96 L (98-107) mEq/L Carbon Dioxide 36 H (23-29) mEq/L BUN 46 H (8-23) mg/dL Creatinine 0.49 L (0.60-1.20) mg/dL Glucose 174 H (70-105) mg/dL Calcium 9.9 (8.6-10.3) mg/dL Calcium panel 02/15/19 Range/Units 04:20 Calcium 9.9 (8.6-10.3) mg/dL Pituitary panel 02/15/19 Range/Units 04:20 Sodium 140 (136-145) mEq/L Potassium 3.1 L (3.5-5.1) mEq/L Chloride 96 L (98-107) mEq/L Carbon Dioxide 36 H (23-29) mEq/L BUN 46 H (8-23) mg/dL Creatinine 0.49 L (0.60-1.20) mg/dL Glucose 174 H (70-105) mg/dL Calcium 9.9 (8.6-10.3) mg/dL Adrenal panel 02/15/19 Range/Units 04:20 Sodium 140 (136-145) mEq/L Potassium 3.1 L (3.5-5.1) mEq/L Chloride 96 L (98-107) mEq/L Carbon Dioxide 36 H (23-29) mEq/L BUN 46 H (8-23) mg/dL Creatinine 0.49 L (0.60-1.20) mg/dL Glucose 174 H (70-105) mg/dL Calcium 9.9 (8.6-10.3) mg/dL Consult Discharge Plan - Plan Referrals: Aren Malik Jr, MD [Primary Care Provider] -
[2019-02-15 09:06] LABS: INR 1.3; Prothrombin Time 14.9 Seconds (9.4-12.1)
--- NOTE | 2019-02-15 10:16 | Infectious Disease Progress No ---
ID Progress Note Date of Encounter: 02/15/19 Time of Encounter: 09:20 - Subjective Subjective: Patient seen and examined. No acute events noted overnight. Scheduled for CT- guided biopsy later today. Denies fevers, chills, rigors. Denies chest pain. Reports shortness of breath is at baseline. Denies cough. Denies nausea, vomiting, diarrhea, or constipation. Reports her stools are a little loose. Denies abdominal pain or urinary complaints. States her appetite is okay. Denies oral thrush or skin rashes. - Objective CBC & Chem 7: 02/18/19 05:55 02/18/19 05:55 - Exam Vitals: Temp Pulse Resp BP Pulse Ox 97.6 F 70 20 140/88 97 02/15/19 06:54 02/15/19 06:54 02/15/19 09:48 02/15/19 06:54 02/15/19 09:48 Exam: Head: Atraumatic, normal inspection, normocephalic. Eye: EOMI, PERRLA, no scleral icterus noted. ENT: Mucous membranes moist. No odontogenic infection noted. Neck: Normal inspection, no meningismus. Respiratory: Clear to auscultation. No rales, respiratory distress, rhonchi, or wheezes noted. Chest tube noted to the right anterior upper thorax with scant amount of serous sanguinous drainage noted. No crepitus appreciated. No air leak noted. Cardiovascular: Regular rate and rhythm, S1 and S2 audible. No murmurs, rubs, or gallops. GI: Soft, nondistended, normal bowel sounds. Extremities: No joint swelling, pedal edema, or tenderness noted. Neurological: Alert, oriented 3, no focal deficits. Psychiatric: normal affect, normal mood. Skin: Dry, intact, warm. Normal color. No rashes. - Assessment and Plan (1) Sepsis Current Visit: No Status: Acute The patient had 3 sepsis criteria on admission. Likely secondary to pneumonia. Improved. WBC remains elevated, likely secondary to steroids. Continues to have some intermittent tachycardia. She has been afebrile. Blood cultures drawn 02/10/19 are no growth to date 2 sets. Qualifiers: Sepsis type: sepsis due to unspecified organism Qualified Code(s): A41.9 - Sepsis, unspecified organism SNOMED Code(s): 50567659 (2) Leukocytosis Current Visit: Yes Status: Acute Likely reactive secondary to steroids. Clinically improved. Continue to trend. Qualifiers: Leukocytosis type: unspecified Qualified Code(s): D72.829 - Elevated white blood cell count, unspecified SNOMED Code(s): 721610867, 996070385 (3) Healthcare-associated pneumonia Current Visit: Yes Status: Acute Location: Right base. Causative organism: Unclear. CT of the chest revealed a right basilar infiltrate concerning for aspiration pneumonia versus other. MRSA screen was negative. Strep pneumococcal and legionella urinary antigens were negative. Respiratory infectious panel was negative. Sputum culture is positive for fungal elements and few gram-positive cocci. Final ID is pending. Currently on doxycycline by mouth and IV Zosyn. SNOMED Code(s): 361347719, 280006672 (4) Pneumothorax on right Current Visit: Yes Status: Acute Chest x-ray completed 02/14/19 revealed a large right-sided pneumothorax. Status post chest tube placement 02/14/19 by the acute care surgery team. Repeat chest x-ray shows a possible trace right apical pneumothorax. Acute care surgery team consulted and following. SNOMED Code(s): 626276348 (5) Acute respiratory failure Current Visit: Yes Status: Acute Likely multifactorial: Pneumonia, COPD, pulmonary fibrosis, bronchiectasis, cavitary lung lesion, and pneumothorax. O2 demands remain high, but decreased from previously. She is currently on a simple face mask at 10 L/m. Pulmonology consult and following. Qualifiers: Respiratory failure complication: hypoxia Qualified Code(s): J96.01 - Acute respiratory failure with hypoxia SNOMED Code(s): 99535197 (6) Cavitary lesion of lung Current Visit: No Status: Chronic First seen in 11/11/2018. Extensive workup including for TB, fungal element were all negative. Status post bronchoscopy 11/15/2018 and 12/13/2018. Both were also nonrevealing. Cultures were negative. Fungal cultures and AFB were negative. And flow cytometry were almost negative. Patient was treated with 8 weeks of Augmentin and doxycycline with no improvement whatsoever. High index of suspicion for malignancy. Interventional radiology consult and with plans for biopsy later today. SNOMED Code(s): 774596020 (7) Pulmonary fibrosis Current Visit: Yes Status: Chronic SNOMED Code(s): 60425338 (8) CAD (coronary artery disease) Current Visit: Yes Status: Chronic Qualifiers: Coronary Disease-Associated Artery/Lesion type: viejas artery [place] vs. transplanted heart: unspecified whether viejas or transplanted heart A ssociated angina: without angina Qualified Code(s): I25.10 - Atherosclerotic heart disease of viejas coronary artery without angina pectoris SNOMED Code(s): 36121173 (9) Hyperlipidemia Current Visit: No Status: Acute Qualifiers: Hyperlipidemia type: Mixed hyperlipidemia SNOMED Code(s): 31012475 - Recommendations Recommendations: Continue to trend CBC with differential. Await biopsy results. Please send specimen for pathology and culture (aerobic, anaerobic, AFB, and fungal). Chest tube management per the acute care surgery team. O2 management per the pulmonology team. Continue Zosyn 3.375 g IV every 8 hours. Duration of treatment depends on the clinical picture. Monitor renal function and dose adjust antibiotics. Consult Discharge Plan - Plan Referrals: Aren Malik Jr, MD [Primary Care Provider] - - Attending Attestation I have personally performed a face to face evaluation on this patient. I have reviewed and agree with the care plan. History and Exam by me shows: Assessment and plan: 1.Sepsis 2.Leukocytosis 3.Healthcare associated pneumonia 4.Cavitary lung lesion going for biopsy tomorrow 5.Pulmonary fibrosis 6.Chronic respiratory failure Recommendations: Continue to trend CBC with differential. Await biopsy results. Please send specimen for pathology and culture (aerobic, anaerobic, AFB, and fungal). Chest tube management per the acute care surgery team. O2 management per the pulmonology team. Continue Zosyn 3.375 g IV every 8 hours. Duration of treatment depends on the clinical picture. Monitor renal function and dose adjust antibiotics.
--- NOTE | 2019-02-15 11:57 | IR Procedure Note ---
Date of procedure: 02/15/19 Consent Obtained: Verbal consent, Written consent Timeout: Correct patient and procedure verified, Correct site verified, Time out performed, Skin prep completed Local anesthetic: Lidocaine 1% Was there an surgical services assistant present: No Results/Findings: Lung mass biopsy performed Estimated blood loss (cc): 1 Complications: None; Tolerated procedure well Indications: Right lung mass Procedure Performed: CT guided lung mass biopsy Site/Technique: CT guided right lung mass biopsy performed Results/Findings (any specimens removed): Biopsy specimens obtained Post Procedure Treatment Plan: Keep chest tube to suction Specimen: 5 20 gauge core needle biopsies
[2019-02-15] MEDS: *HR* HYDROcodone/Acet 5/325 mg TABLET PO PRN ×2 (12:05→18:13)
--- NOTE | 2019-02-15 12:31 | Electrocardiograph Report ---
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
--- NOTE | 2019-02-15 14:37 | Pulmonology Progress Note ---
Date of Encounter: 02/15/19 Time of Encounter: 10:00 Assessment and Plan (1) Acute and chronic respiratory failure with hypoxia Current Visit: No Status: Acute To continue O2 supplementation as oxygenation and ventilation is stable. We will hold off noninvasive ventilation in the setting of right-sided pneumothorax. 02/15 to continue O2 supplementation oxygenation and ventilation stable to continue catheter to suction. Tomorrow morning to water seal and observe for 24 hours if the pneumothorax is stable will try to take the tube out on (2) Pneumothorax on right Current Visit: Yes Status: Acute I repeated the chest x-ray which showed near complete resolution of right-sided pneumothorax to continue chest tube with suction spoke with we will go ahead with CT-guided biopsy tomorrow morning with possible chest tube replacement if needed. To keep her nothing by mouth after midnight the plan of care was discussed with her registered nurse. Patient verbalized understanding the plan of care. 02/15 continue suction on on chest tube on the right side will discontinue suction tomorrow morning Will reassess with chest x-ray during midmorning. (3) COPD (chronic obstructive pulmonary disease) Current Visit: Yes Status: Chronic Continue the current regimen of bronchodilators. Qualifiers: COPD type: chronic bronchitis Chronic bronchitis type: unspecified Qualified Code(s): J42 - Unspecified chronic bronchitis (4) Cavitary lesion of lung Current Visit: No Status: Chronic Infectious versus inflammatory versus malignancy patient had 2 bronchoscopy which came out negative without much diagnosis counseled about CT-guided biopsy patient got convinced that she is ready for CT-guided biopsy and she is aware of that in case the repeat pneumothorax And she is already has a chest tube in place. I spoke with the the patient and her family everybody verbalized understanding. 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 Patient was agreeable for the lung biopsy as she is already has chest tube catheter,spoke with interventio nal radiology Since his pneumothorax is stable patient is scheduled for her right lower lobe CT-guided lung biopsy. Patient says her shortness of breath is lot better after the chest tube patient has her appetite back wants to eat. Much cough or sputum production. No fever or chills or any other constitutional symptoms. 02/[address]-guided lung biopsy still patient has chest tube with minimal pneumothorax with catheter connected to suction. Patient denies any chest pain chest tightness denies any palpitation or syncope except for some soreness around the pneumothorax catheter insertion site patient denies any abdominal symptoms denies any headache denies any focal neurological deficit. Objective PUL Vital signs: Last Vital Signs Temp 97.6 F 02/15/19 06:54 Pulse 98 02/15/19 12:23 Resp 22 02/15/19 12:23 BP 133/94 02/15/19 12:23 Pulse Ox 89 02/15/19 12:23 Auscultation: right: wheezes (Minimal right-sided wheeze) Cardiovascular: regular rate and rhythm Gastrointestinal: normoactive bowel sounds normal mental status, non-focal exam mood appropriate Results - Laboratory Findings CBC and BMP: 02/15/19 04:20 02/15/19 04:20 ABG ABG pH 7.48 pH Units (7.32-7.45) H 02/13/19 23:42 ABG pCO2 44 mmHg (35-45) 02/13/19 23:42 ABG pO2 62 mmHg (85-104) L 02/13/19 23:42 ABG O2 Saturation 93 % (95-98) L 02/13/19 23:42 PT/INR, D-dimer PT 14.9 Seconds (9.4-12.1) H 02/15/19 08:30 967 ng/mLFEU (0-500) H 02/10/19 17:14 Abnormal lab findings: Abnormal lab results WBC 17.3 K/mcL (4.3-11.1) H 02/15/19 04:20 RBC 3.42 M/mcL (3.82-4.97) L 02/15/19 04:20 Hgb 10.0 g/dL (11.5-15.4) L 02/15/19 04:20 Hct 31.8 % (35.3-44.9) L 02/15/19 04:20 MCHC 31.4 g/dL (31.6-35.5) L 02/15/19 04:20 RDW 15.9 % (11.5-14.5) H 02/15/19 04:20 Plt Count 419 K/mcL (140-400) H 02/15/19 04:20 15.7 K/mcL (1.6-8.9) H 02/14/19 07:03 0.4 K/mcL (0.6-4.6) L 02/13/19 03:02 1.6 K/mcL (0.0-1.3) H 02/10/19 17:14 PT 14.9 Seconds (9.4-12.1) H 02/15/19 08:30 967 ng/mLFEU (0-500) H 02/10/19 17:14 ABG pH 7.48 pH Units (7.32-7.45) H 02/13/19 23:42 ABG pO2 62 mmHg (85-104) L 02/13/19 23:42 ABG HCO3 33 mEq/L (21-27) H 02/13/19 23:42 ABG Total CO2 34 mEq/L (20-26) H 02/13/19 23:42 ABG O2 Saturation 93 % (95-98) L 02/13/19 23:42 ABG Base Excess 8 mEq/L (-2 to 3) H 02/13/19 23:42 Sodium 135 mEq/L (136-145) L 02/13/19 03:02 Potassium 3.1 mEq/L (3.5-5.1) L 02/15/19 04:20 Chloride 96 mEq/L (98-107) L 02/15/19 04:20 Carbon Dioxide 36 mEq/L (23-29) H 02/15/19 04:20 BUN 46 mg/dL (8-23) H 02/15/19 04:20 0.49 mg/dL (0.60-1.20) L 02/15/19 04:20 94 (6-26) H 02/15/19 04:20 Glucose 174 mg/dL (70-105) H 02/15/19 04:20 POC Glucose 146 mg/dL (70-99) H 02/12/19 17:07 306 (280-300) H 02/15/19 04:20 Lactic Acid 2.4 mmol/L (0.5-2.2) H 02/10/19 17:34 Calcium 10.4 mg/dL (8.6-10.3) H 02/11/19 06:04 B-Natriuretic Peptide 512 pg/mL (Less than 100) H 02/13/19 03:02 Trace-intact (Negative) H 02/10/19 23:52 Ur Squamous Epith Cells Moderate per lpf (None-Few) H 02/10/19 23:52 - Microbiology Findings Microbiology Findings: Microbiology, Last 48 Hours 02/11/19 12:10 Sputum Culture - Preliminary Sputum Fungal Elements - Clinical Findings Intake & Output: Intake & Output 02/14/19 02/15/19 02/15/19 23:59 07:59 15:59 Intake Total 340 / 690 100 / 100 Balance 340 / 40 100 / 100 Weight 64.9 kg Consult Discharge Plan - Plan Referrals: Aren Malik Jr, MD [Primary Care Provider] -
[2019-02-16] MEDS: *HR* HYDROcodone/Acet 5/325 mg TABLET PO PRN ×4 (00:40→20:08)
[2019-02-16] MEDS: Piperacillin/Tazobactam 3.375 GM in 0.9 % Sodium Chloride Mini Bag 100 ML IVPB SCH ×4 (00:41→22:52)
[2019-02-16] MEDS: *HR* OxyCODONE Immed Rel 5 MG TABLET PO PRN (03:42)
[2019-02-16] MEDS: Ipratropium/Albuterol Neb 3 ML IH SCH ×4 (03:51→22:34)
[2019-02-16 04:52] LABS: Hematocrit 32.2 % (35.3-44.9); Hemoglobin 9.8 g/dL (11.5-15.4); Mean Corpuscular HGB Conc 30.4 g/dL (31.6-35.5); Mean Corpuscular Hemoglobin 28.7 pg (28.0-33.3); Mean Corpuscular Volume 94.4 fL (83.0-100.0); Mean Platelet Volume 10.5 fL (9.4-12.4); Platelet Count 432 K/mcL (140-400); Red Blood Count 3.41 M/mcL (3.82-4.97); Red Cell Distribution Width 15.9 % (11.5-14.5); White Blood Count 17.1 K/mcL (4.3-11.1)
[2019-02-16 05:17] LABS: BUN/Creatinine Ratio 100 (6-26); Blood Urea Nitrogen 45 mg/dL (8-23); Calcium 9.8 mg/dL (8.6-10.3); Carbon Dioxide 32 mEq/L (23-29); Chloride 106 mEq/L (98-107); Glucose 128 mg/dL (70-105); Magnesium 1.8 mg/dL (1.6-2.6); Osmolality,Calculated 285 (280-300); Sodium 131 mEq/L (136-145); eGFR For African Americans > 60 (> 60); eGFR For Non-African Americans > 60 (> 60)
--- NOTE | 2019-02-16 07:44 | Internal Med Progress Note ---
Hospitalist Progress Note - Encounter Date of Encounter: 02/16/19 Time of Encounter: 07:43 - Subjective Interval History: Tolerated biopsy yesterday very well. Today says she is actually feeling quite good. Her leg swelling has all but resolved. Breathing is easier. Not coughing as much although still some. Does still have some pain at chest tube site. Diet is good, no N/V/D. - Exam Vitals: Temp Pulse Resp BP Pulse Ox 98.6 F 106 14 123/80 92 02/15/19 20:12 02/15/19 20:12 02/16/19 04:51 02/15/19 20:12 02/16/19 04:51 Exam: General: good eye contact, chronically ill appearing but normal work of breathing Thoracic: decent aeration bilaterally, biphasic coarse breath sounds throughout with prolonged expiration. R chest tube in place. Cardio: Normal S1 and S2, regular rhythm, tachycardic Abdomen: Soft, nontender Extremities: Warm, well perfused. DP pulses 2+ b/l. Edema resolved RLE and trace LLE Neuro: Awake, fully oriented. Speech fluent - Summary of Assessment and Plan Summary of Assessment and Plan: Nany Peck is a 73 F w hx severe COPD on 5L c/b fibrosis and bronchiectasis, RLL cavitary lesion, HFpEF, CAD s/p stents, HTN, MVP, anxiety, who on 02/10 p/w progressive SOB, productive cough w sputum color change, and fever, found to have elevated HR and RR, hypoxia, lactate 2.4, and CT showing possible acute infiltrates, concerning for CAP causing sepsis and COPD exacerbation leading to acute on chronic hypoxic respiratory failure, further c/b acute pneumothorax requiring chest tube placement on 02/14. Acute pneumothorax: s/p chest tube by GenSurg Dr Villalba on 02/14, tube to suction, no air leak today, improving - GenSurg and Pulm following, appreciate rec's - consider clamping today with repeat CXR in AM COPD exacerbation: improving - continue nebs q6h - continue prednisone 60 daily - home inhalers Pneumonia: ID following - continue zosyn RLL Cavitary lung lesion: s/p CT guided lung biopsy 02/15 - results pending Acute on chronic hypoxic and hypercapneic respiratory failure: still desatting occasionally, weaned to 8L - supplemental O2, wean as able - IS - walk test prior to discharge Hyponatremia: likely hypovolemic due to overdiuresis - decrease lasix to 20 po daily Tachycardia: home lopressor 25 bid increased to 100 bid and pt still tachycardic, still leukocytosis - repeat ECG today Sepsis: resolved, still SIRS 2/4 although clinically not septic Hypokalemia: resolved HFpEF: lasix 20 daily (home lasix 20-40 po daily prn), KCl 20 meq daily CAD: home statin, ASA HTN: home lopressor 25 bid Anxiety: home celexa 20 daily GERD: H2B bid PPx: sqh FEN: cardiac, no MIVF Lines: PIV Consults: Pulm, ID, GenSurg Code: [id number] Dispo: patient requires inpatient eval and management at this time. Anticipate 2-3 days. Will be homegoing Internal Medicine: Result - Labs CBC & Chem 7: 02/16/19 04:30 02/16/19 04:30 Labs: Short CBC 02/16/19 Range/Units 04:30 WBC 17.1 H (4.3-11.1) K/mcL Hgb 9.8 L (11.5-15.4) g/dL Hct 32.2 L (35.3-44.9) % Plt Count 432 H (140-400) K/mcL BMP 02/16/19 04:30 Sodium 131 L Potassium 4.0 Chloride 106 Carbon Dioxide 32 H BUN 45 H Creatinine 0.45 L Glucose 128 H Calcium 9.8 - ABG Interpretation ABG results: ABG ABG pH 7.48 pH Units (7.32-7.45) H 02/13/19 23:42 ABG pCO2 44 mmHg (35-45) 02/13/19 23:42 ABG pO2 62 mmHg (85-104) L 02/13/19 23:42 ABG O2 Saturation 93 % (95-98) L 02/13/19 23:42 PT/INR, D-dimer PT 14.9 Seconds (9.4-12.1) H 02/15/19 08:30 967 ng/mLFEU (0-500) H 02/10/19 17:14 - Impressions Impressions Lung Biopsy CT 02/15/19 00:00 IMPRESSION: 1. Successful CT-guided core needle biopsy of a cavitary right lower lobe mass. Samples were sent for both pathology and cultures. No immediate complications. 2. There is a small right-sided pneumothorax, with a right-sided chest tube in place. Initially, the chest tube had been clamped. One placed to suction, the pneumothorax decreased in size. Therefore, the chest tube is functional and revision is not felt to be necessary at this time. D/ / 02/15/2019 12:33:38 Jarad Fairbanks MD / Nicolasa Puri Interpreting Provider: Jarad Fairbanks MD Chest X-Ray 02/15/19 07:10 IMPRESSION: 1. Right pleural catheter unchanged in position with question of a trace right apical pneumothorax. 2. Interstitial opacities bilaterally with patchy bibasilar opacification. 3. Likely bilateral pleural effusions. D/ / Tyron Ballard MD / Tyron Ballard MD Interpreting Provider: Tyron Ballard MD Chest X-Ray 02/15/19 13:00 IMPRESSION: Small bore right-sided chest tube with re-expansion of the lung. A minimal pneumothorax persists. Airspace disease in the lung bases and bilateral effusions. D/ / 02/15/2019 13:35:28 Kiah Marmolejo MD / [facility] Interpreting Provider: Kiah Marmolejo MD Chest X-Ray 02/16/19 07:00 IMPRESSION: 1. Mild right pneumothorax which has mildly decreased since the prior exam. 2. COPD with stable bibasilar consolidation and mild right effusion. D/ / 02/16/2019 07:41:44 Rizwan Tovar MD / [facility] Interpreting Provider: Rizwan Tovar MD Consult Discharge Plan - Plan Referrals: Aren Malik Jr, MD [Primary Care Provider] -
[2019-02-16] MEDS: Aspirin Enteric Coated 81 MG Tablet PO SCH (08:11)
[2019-02-16] MEDS: Loratadine 10 MG TABLET PO SCH (08:11)
[2019-02-16] MEDS: predniSONE 20 MG TABLET PO SCH (08:11)
[2019-02-16] MEDS: Metoprolol 100 MG TABLET PO SCH ×2 (08:11→20:07)
[2019-02-16] MEDS: Nystatin SUSP 5 ML UD.LIQ PO SCH ×4 (08:11→20:07)
[2019-02-16] MEDS: Furosemide 40 MG/4 ML VIAL IVP SCH (08:12)
[2019-02-16] MEDS: *HR* Heparin 5,000 UNIT/ML VIAL SQ SCH ×3 (08:21→20:09)
[2019-02-16] MEDS: Lactobacillus 1 EACH CAP.SPRINK PO SCH (08:25)
--- NOTE | 2019-02-16 10:09 | Electrocardiograph Report ---
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
--- NOTE | 2019-02-16 10:19 | AcuteCareSurgery Progress Note ---
<Christy Jin - Last Filed: 02/16/19 10:20> Date of Encounter: 02/16/19 Time of Encounter: 10:17 - Assessment and Plan (1) Pneumothorax on right Current Visit: Yes Status: Acute Status post right chest tube placement day 2 for pneumothorax Chest x-ray today-mild right pneumothorax which has mildly decreased since prior, COPD with stable bibasilar consolidation and mild right effusion Continue current therapy with wall suction Will repeat chest x-ray in the morning Subjective Narrative: Patient seen and examined at bedside today. She states that she is feeling somewhat better, she does admit to some pain around chest tube with movement. There is good flow through chest tube, a small air leak remains which appears improved from yesterday. Objective Vital Signs - Last 8 Hours Pulse Resp BP Pulse Ox 02/16/19 08:26 92 02/16/19 08:03 106 20 136/93 92 02/16/19 04:51 14 92 Intake and Output 02/15/19 02/16/19 02/16/19 23:59 07:59 15:59 Intake Total 100 / 300 100 / 220 120 / 220 Output Total 300 / 320 20 / 320 Balance 100 / 300 -200 / -100 100 / -100 Intake: IV Fluids 100 / 300 100 / 100 Zosyn 3.375 GM In 0.9 % Sodium 100 / 300 100 / 100 Chloride (Mini-Bag +) 100 ML @ 25 mls/hr IVPB Q8HR [facility] Rx#: [id number] Oral 120 / 120 Output: Urine 300 / 300 Chest Tube Drainage 20 / 20 Right Anterior Chest #1 20 / 20 Other: Meal Breakfast Percent of Meal Consumed 50% # Voids 1 Weight 65.5 kg Patient Weight 02/16/19 23:59 Weight 65.5 kg - General physical appearance well nourished, no distress - Eyes normal ocular movement - ENT normal mucosa - Neck Neck exam: trachea midline, no lymphadectomy - Respiratory normal respiratory effort, other (Coarse breath sounds, airleak noted for chest tube) - Cardiovascular Cardiovascular exam: Present: RRR. Absent: JVD - Abdomen Abdomen: Present: bowel sounds present, soft, non tender - Neurologic CN 2-12 grossly intact - Psychiatric oriented to time, oriented to person, oriented to place, speech is normal, memory intact - Labs 02/16/19 04:30 02/16/19 04:30 Diabetes panel 02/16/19 Range/Units 04:30 Sodium 131 L (136-145) mEq/L Potassium 4.0 (3.5-5.1) mEq/L Chloride 106 (98-107) mEq/L Carbon Dioxide 32 H (23-29) mEq/L BUN 45 H (8-23) mg/dL Creatinine 0.45 L (0.60-1.20) mg/dL Glucose 128 H (70-105) mg/dL Calcium 9.8 (8.6-10.3) mg/dL Calcium panel 02/16/19 Range/Units 04:30 Calcium 9.8 (8.6-10.3) mg/dL Pituitary panel 02/16/19 Range/Units 04:30 Sodium 131 L (136-145) mEq/L Potassium 4.0 (3.5-5.1) mEq/L Chloride 106 (98-107) mEq/L Carbon Dioxide 32 H (23-29) mEq/L BUN 45 H (8-23) mg/dL Creatinine 0.45 L (0.60-1.20) mg/dL Glucose 128 H (70-105) mg/dL Calcium 9.8 (8.6-10.3) mg/dL Adrenal panel 02/16/19 Range/Units 04:30 Sodium 131 L (136-145) mEq/L Potassium 4.0 (3.5-5.1) mEq/L Chloride 106 (98-107) mEq/L Carbon Dioxide 32 H (23-29) mEq/L BUN 45 H (8-23) mg/dL Creatinine 0.45 L (0.60-1.20) mg/dL Glucose 128 H (70-105) mg/dL Calcium 9.8 (8.6-10.3) mg/dL Consult Discharge Plan - Plan Referrals: Aren Malik Jr, MD [Primary Care Provider] - <Keith Villalba - Last Filed: 02/16/19 16:31> Date of Encounter: 02/16/19 - Assessment and Plan (1) Pneumothorax on right Current Visit: Yes Status: Acute Objective Vital Signs - Last 8 Hours Resp Pulse Ox 02/16/19 10:27 18 92 Intake and Output 02/16/19 02/16/19 02/16/19 07:59 15:59 23:59 Intake Total 100 / 320 220 / 320 Output Total 300 / 320 20 / 320 Balance -200 / 0 200 / 0 Intake: IV Fluids 100 / 200 100 / 200 Zosyn 3.375 GM In 0.9 % Sodium 100 / 200 100 / 200 Chloride (Mini-Bag +) 100 ML @ 25 mls/hr IVPB Q8HR [facility] Rx#: [id number] Oral 120 / 120 Output: Urine 300 / 300 Chest Tube Drainage Right Anterior Chest #1 Other: Meal Breakfast Percent of Meal Consumed 50% # Voids 1 1 Weight 65.5 kg Patient Weight 02/16/19 23:59 Weight 65.5 kg - Labs 02/16/19 04:30 02/16/19 04:30 Diabetes panel 02/16/19 Range/Units 04:30 Sodium 131 L (136-145) mEq/L Potassium 4.0 (3.5-5.1) mEq/L Chloride 106 (98-107) mEq/L Carbon Dioxide 32 H (23-29) mEq/L BUN 45 H (8-23) mg/dL Creatinine 0.45 L (0.60-1.20) mg/dL Glucose 128 H (70-105) mg/dL Calcium 9.8 (8.6-10.3) mg/dL Calcium panel 02/16/19 Range/Units 04:30 Calcium 9.8 (8.6-10.3) mg/dL Pituitary panel 02/16/19 Range/Units 04:30 Sodium 131 L (136-145) mEq/L Potassium 4.0 (3.5-5.1) mEq/L Chloride 106 (98-107) mEq/L Carbon Dioxide 32 H (23-29) mEq/L BUN 45 H (8-23) mg/dL Creatinine 0.45 L (0.60-1.20) mg/dL Glucose 128 H (70-105) mg/dL Calcium 9.8 (8.6-10.3) mg/dL Adrenal panel 02/16/19 Range/Units 04:30 Sodium 131 L (136-145) mEq/L Potassium 4.0 (3.5-5.1) mEq/L Chloride 106 (98-107) mEq/L Carbon Dioxide 32 H (23-29) mEq/L BUN 45 H (8-23) mg/dL Creatinine 0.45 L (0.60-1.20) mg/dL Glucose 128 H (70-105) mg/dL Calcium 9.8 (8.6-10.3) mg/dL - Attending Attestation I examined this patient and my medical decision-making was reviewed with the Resident Physician. I agree with the documented findings, disposition and treatment plan as described except to the extent set forth below. I reviewed the above assessment and evaluation and agree with the above plan. Patient has a small air leak with coughing. Continue with suction. Continue with monitoring chest x-rays.
--- NOTE | 2019-02-16 11:24 | Infectious Disease Progress No ---
ID Progress Note Date of Encounter: 02/16/19 Time of Encounter: 11:22 - Subjective Subjective: Patient seen and examined. No acute events noted overnight. Stat post CT- guided lung biopsy 02/15/19. Denies fevers, chills, rigors. Denies chest pain. Reports shortness of breath is at baseline. Reports a moist nonproductive cough. Denies vomiting, diarrhea, or constipation. Reports some nausea this morning. Reports her stools are a little loose. Denies abdominal pain or ur inary complaints. States her appetite is okay, but her daughter states she is not eating much. Denies oral thrush or skin rashes. - Objective CBC & Chem 7: 02/18/19 12:35 02/18/19 05:55 - Exam Vitals: Temp Pulse Resp BP Pulse Ox 98.6 F 106 20 136/93 92 02/15/19 20:12 02/16/19 08:03 02/16/19 08:03 02/16/19 08:03 02/16/19 08:26 Exam: Head: Atraumatic, normal inspection, normocephalic. Eye: EOMI, PERRLA, no scleral icterus noted. ENT: Mucous membranes moist. No odontogenic infection noted. Neck: Normal inspection, no meningismus. Respiratory: Clear to auscultation. No rales, respiratory distress, rhonchi, or wheezes noted. Chest tube noted to the right anterior upper thorax with scant amount of serous sanguinous drainage noted. No crepitus appreciated. No air leak noted. Cardiovascular: Regular rate and rhythm, S1 and S2 audible. No murmurs, rubs, or gallops. GI: Soft, nondistended, normal bowel sounds. Extremities: No joint swelling, pedal edema, or tenderness noted. Neurological: Alert, oriented 3, no focal deficits. Psychiatric: normal affect, normal mood. Skin: Dry, intact, warm. Normal color. No rashes. - Assessment and Plan (1) Sepsis Current Visit: No Status: Acute The patient had 3 sepsis criteria on admission. Likely secondary to pneumonia. Improved. WBC remains elevated, likely secondary to steroids. Continues to have some intermittent tachycardia. She has been afebrile. Blood cultures drawn 02/10/19 are negative 2 sets. Qualifiers: Sepsis type: sepsis due to unspecified organism Qualified Code(s): A41.9 - Sepsis, unspecified organism SNOMED Code(s): 88162386 (2) Leukocytosis Current Visit: Yes Status: Acute Likely reactive secondary to steroids. Clinically improved. Continue to trend. Qualifiers: Leukocytosis type: unspecified Qualified Code(s): D72.829 - Elevated white blood cell count, unspecified SNOMED Code(s): 766747044, 325389382 (3) Healthcare-associated pneumonia Current Visit: Yes Status: Acute Location: Right base. Causative organism: Unclear. CT of the chest revealed a right basilar infiltrate concerning for aspiration pneumonia versus other. MRSA screen was negative. Strep pneumococcal and legionella urinary antigens were negative. Respiratory infectious panel was negative. Sputum culture is positive for fungal elements and few gram-positive cocci. Final ID is pending. Currently on IV Zosyn. SNOMED Code(s): 947034285, 332085377 (4) Pneumothorax on right Current Visit: Yes Status: Acute Chest x-ray completed 02/14/19 revealed a large right-sided pneumothorax. Status post chest tube placement 02/14/19 by the acute care surgery team. Repeat chest x-ray shows a possible trace right apical pneumothorax. Chest x-ray 02/16/19 shows a mild right pneumothorax that is mildly decreased as well as findings consistent with COPD and stable bibasilar consolidations. Acute care surgery team consulted and following. SNOMED Code(s): 237473605 (5) Acute respiratory failure Current Visit: Yes Status: Acute Likely multifactorial: Pneumonia, COPD, pulmonary fibrosis, bronchiectasis, cavitary lung lesion, and pneumothorax. O2 demands remain high, but decreased from previously. She is currently on high flow O2. Pulmonology consult and following. Qualifiers: Respiratory failure complication: hypoxia Qualified Code(s): J96.01 - Acute respiratory failure with hypoxia SNOMED Code(s): 67485938 (6) Cavitary lesion of lung Current Visit: No Status: Chronic First seen in 11/11/2018. Extensive workup including for TB, fungal element were all negative. Status post bronchoscopy 11/15/2018 and 12/13/2018. Both were also nonrevealing. Cultures were negative. Fungal cultures and AFB were negative. And flow cytometry were almost negative. Patient was treated with 8 weeks of Augmentin and doxycycline with no improvement whatsoever. High index of suspicion for malignancy. Status post CT-guided biopsy 02/15/19. Cultures and pathology are pending. SNOMED Code(s): 356405700 (7) Pulmonary fibrosis Current Visit: Yes Status: Chronic SNOMED Code(s): 30887482 (8) CAD (coronary artery disease) Current Visit: Yes Status: Chronic Qualifiers: Coronary Disease-Associated Artery/Lesion type: [place] artery [place] vs. transplanted heart: unspecified whether [place] or transplanted heart Associated angina: without angina Qualified Code(s): I25.10 - Atherosclerotic heart disease of [place] coronary artery without angina pectoris SNOMED Code(s): 71763789 (9) Hyperlipidemia Current Visit: No Status: Acute Qualifiers: Hyperlipidemia type: Mixed hyperlipidemia SNOMED Code(s): 05515866 - Recommendations Recommendations: Continue to trend CBC with differential. Await biopsy results. Chest tube management per the acute care surgery team. O2 management per the pulmonology team. Continue Zosyn 3.375 g IV every 8 hours. Duration of treatment depends on the clinical picture. Monitor renal function and dose adjust antibiotics. Consult Discharge Plan - Plan Referrals: Aren Malik Jr, MD [Primary Care Provider] - - Attending Attestation I have personally performed a face to face evaluation on this patient. I have reviewed and agree with the care plan. History and Exam by me shows: Assessment and plan: 1.Sepsis 2.Leukocytosis 3.Healthcare associated pneumonia 4.Cavitary lung lesion going for biopsy tomorrow 5.Pulmonary fibrosis 6.Chronic respiratory failure Recommendations: Continue to trend CBC with differential. Await biopsy results. Please send specimen for pathology and culture (aerobic, anaerobic, AFB, and fungal). Chest tube management per the acute care surgery team. O2 management per the pulmonology team. Continue Zosyn 3.375 g IV every 8 hours. Duration of treatment depends on the clinical picture. Monitor renal function and dose adjust antibiotics.
[2019-02-16] MEDS ORDERED: Furosemide 20 MG/2 ML VIAL IVP ONE (14:00)
--- NOTE | 2019-02-16 21:31 | Pulmonology Progress Note ---
Date of Encounter: 02/16/19 Time of Encounter: 09:00 Assessment and Plan (1) Acute and chronic respiratory failure with hypoxia Current Visit: No Status: Acute To continue O2 supplementation as oxygenation and ventilation is stable. We will hold off noninvasive ventilation in the setting of right-sided pneumothorax. 02/15 to continue O2 supplementation oxygenation and ventilation stable to continue catheter to suction. Tomorrow morning to water seal and observe for 24 hours if the pneumothorax is stable will try to take the tube out on 02/16 during the morning hours patient was not taken off suction personally when I examined her right carotid dissection relieve the overnight to water seal get a chest x-ray in the a.m. if the pneumothorax is still the same or reduced will remove the chest tube. Will continue another 1 or 2 days of diuresis patient oxygen supplementation is coming back to her baseline (2) Pneumothorax on right Current Visit: Yes Status: Acute I repeated the chest x-ray which showed near complete resolution of right-sided pneumothorax to continue chest tube with suction spoke with we will go ahead with CT-guided biopsy tomorrow morning with possible chest tube replacement if needed. To keep her nothing by mouth after midnight the plan of care was discussed with her registered nurse. Patient verbalized understanding the plan of care. 02/15 continue suction on on chest tube on the right side will discontinue suction tomorrow morning Will reassess with chest x-ray during midmorning. 02/16 . The chest tube to waterseal we will repeat the tomorrow morning chest x- ray (3) COPD (chronic obstructive pulmonary disease) Current Visit: Yes Status: Chronic Continue the current regimen of bronchodilators. Qualifiers: COPD type: chronic bronchitis Chronic bronchitis type: unspecified Qualified Code(s): J42 - Unspecified chronic bronchitis (4) Cavitary lesion of lung Current Visit: No Status: Chronic Infectious versus inflammatory versus malignancy patient had 2 bronchoscopy which came out negative without much diagnosis counseled about CT-guided biopsy patient got convinced that she is ready for CT-guided biopsy and she is aware of that in case the repeat pneumothorax And she is already has a chest tube in place. I spoke with the the patient and her family everybody verbalized understanding. 02/[address]-guided lung biopsy was a high possibility that can be infectious we are to wait for full biopsy results most likely diagnosis should be infectious versus malignancy 02/[address]-guided lung biopsy microbiology and pathology in process. Pulmonary we will continue to follow. 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 Patient was agreeable for the lung biopsy as she is already has chest tube catheter,spoke with interventional radiology Since his pneumothorax is stable patient is scheduled for her right lower lobe CT-guided lung biopsy. Patient says her shortness of breath is lot better after the chest tube patient has her appetite back wants to eat. Much cough or sputum production. No fever or chills or any other constitutional symptoms. 02/[address]-guided lung biopsy still patient has chest tube with minimal pneumothorax with catheter connected to suction. Patient denies any chest pain chest tightness denies any palpitation or syncope except for some soreness around the pneumothorax catheter insertion site patient denies any abdominal symptoms denies any headache denies any focal neurological deficit. 02/[address]-guided lung biopsy as today patient still has a mild right apical pneumothorax the lung did not fully reexpand patient chest tube is still on suction. Patient is almost back to baseline feeling a lot better denies much chest pain chest tightness or shortness of breath is still slowly getting better has some cough and some sputum production. Objective PUL Vital signs: Last Vital Signs Temp 98.2 F 02/16/19 21:21 Pulse 105 02/16/19 21:21 Resp 20 02/16/19 21:21 BP 116/77 02/16/19 21:21 Pulse Ox 93 02/16/19 21:21 General appearance: no acute distress ENT: oropharynx moist Effort: mildly labored Auscultation: bilateral: wheezes (Minimal scattered wheezes) Cardiovascular: regular rate and rhythm Gastrointestinal: normoactive bowel sounds Extremities: no edema normal mental status, non-focal exam mood appropriate Results - Laboratory Findings CBC and BMP: 02/16/19 04:30 02/16/19 04:30 ABG ABG pH 7.48 pH Units (7.32-7.45) H 02/13/19 23:42 ABG pCO2 44 mmHg (35-45) 02/13/19 23:42 ABG pO2 62 mmHg (85-104) L 02/13/19 23:42 ABG O2 Saturation 93 % (95-98) L 02/13/19 23:42 PT/INR, D-dimer PT 14.9 Seconds (9.4-12.1) H 02/15/19 08:30 967 ng/mLFEU (0-500) H 02/10/19 17:14 Abnormal lab findings: Abnormal lab results WBC 17.1 K/mcL (4.3-11.1) H 02/16/19 04:30 RBC 3.41 M/mcL (3.82-4.97) L 02/16/19 04:30 Hgb 9.8 g/dL (11.5-15.4) L 02/16/19 04:30 Hct 32.2 % (35.3-44.9) 02/16/19 04:30 MCHC 30.4 g/dL (31.6-35.5) L 02/16/19 04:30 RDW 15.9 % (11.5-14.5) H 02/16/19 04:30 Plt Count 432 K/mcL (140-400) H 02/16/19 04:30 15.7 K/mcL (1.6-8.9) H 02/14/19 07:03 0.4 K/mcL (0.6-4.6) L 02/13/19 03:02 1.6 K/mcL (0.0-1.3) H 02/10/19 17:14 PT 14.9 Seconds (9.4-12.1) H 02/15/19 08:30 967 ng/mLFEU (0-500) H 02/10/19 17:14 ABG pH 7.48 pH Units (7.32-7.45) H 02/13/19 23:42 ABG pO2 62 mmHg (85-104) L 02/13/19 23:42 ABG HCO3 33 mEq/L (21-27) H 02/13/19 23:42 ABG Total CO2 34 mEq/L (20-26) H 02/13/19 23:42 ABG O2 Saturation 93 % (95-98) L 02/13/19 23:42 ABG Base Excess 8 mEq/L (-2 to 3) H 02/13/19 23:42 Sodium 131 mEq/L (136-145) L 02/16/19 04:30 Potassium 3.1 mEq/L (3.5-5.1) L 02/15/19 04:20 Chloride 96 mEq/L (98-107) L 02/15/19 04:20 Carbon Dioxide 32 mEq/L (23-29) H 02/16/19 04:30 BUN 45 mg/dL (8-23) H 02/16/19 04:30 0.45 mg/dL (0.60-1.20) L 02/16/19 04:30 100 (6-26) H 02/16/19 04:30 Glucose 128 mg/dL (70-105) H 02/16/19 04:30 POC Glucose 146 mg/dL (70-99) H 02/12/19 17:07 306 (280-300) H 02/15/19 04:20 Lactic Acid 2.4 mmol/L (0.5-2.2) H 02/10/19 17:34 Calcium 10.4 mg/dL (8.6-10.3) H 02/11/19 06:04 B-Natriuretic Peptide 512 pg/mL (Less than 100) H 02/13/19 03:02 Trace-intact (Negative) H 02/10/19 23:52 Ur Squamous Epith Cells Moderate per lpf (None-Few) H 02/10/19 23:52 - Microbiology Findings Microbiology Findings: Microbiology, Last 48 Hours 02/15/19 15:57 Respiratory Culture - Preliminary Right Lower Lobe Lung 02/15/19 15:57 Fungal Culture - Preliminary Right Lower Lobe Lung Culture is incubating. 02/10/19 19:30 Blood Culture - Final Peripheral Venipuncture No growth. Final report. 02/10/19 19:30 Blood Culture - Final Peripheral Venipuncture No growth. Final report. - Clinical Findings Intake & Output: Intake & Output 02/16/19 02/16/19 02/16/19 07:59 15:59 23:59 Intake Total 100 / 440 220 / 440 120 / 440 Output Total 300 / 320 20 / 320 Balance -200 / 120 200 / 120 120 / 120 Weight 65.5 kg Consult Discharge Plan - Plan Referrals: Aren Malik Jr, MD [Primary Care Provider] -
[2019-02-16] MEDS: Acetaminophen 325 MG TABLET PO PRN (22:56)
[2019-02-17] MEDS: *HR* HYDROcodone/Acet 5/325 mg TABLET PO PRN ×3 (02:09→19:21)
[2019-02-17] MEDS: Ipratropium/Albuterol Neb 3 ML IH SCH ×4 (03:39→22:30)
[2019-02-17 06:53] LABS: Hematocrit 35.1 % (35.3-44.9); Hemoglobin 10.7 g/dL (11.5-15.4); Mean Corpuscular HGB Conc 30.5 g/dL (31.6-35.5); Mean Corpuscular Hemoglobin 29.3 pg (28.0-33.3); Mean Corpuscular Volume 96.2 fL (83.0-100.0); Mean Platelet Volume 10.2 fL (9.4-12.4); Platelet Count 443 K/mcL (140-400); Red Blood Count 3.65 M/mcL (3.82-4.97); Red Cell Distribution Width 15.9 % (11.5-14.5)
[2019-02-17 07:14] LABS: BUN/Creatinine Ratio 78 (6-26); Blood Urea Nitrogen 38 mg/dL (8-23); Calcium 10.4 mg/dL (8.6-10.3); Carbon Dioxide 34 mEq/L (23-29); Chloride 97 mEq/L (98-107); Glucose 123 mg/dL (70-105); Osmolality,Calculated 298 (280-300); Potassium 4.4 mEq/L (3.5-5.1); Sodium 139 mEq/L (136-145); eGFR For African Americans > 60 (> 60); eGFR For Non-African Americans > 60 (> 60)
--- NOTE | 2019-02-17 07:48 | Internal Med Progress Note ---
Hospitalist Progress Note - Encounter Date of Encounter: 02/17/19 Time of Encounter: 07:48 - Subjective Interval History: Pt today feels good. She denies SOB, CP, leg swelling, N/V/D. She is hopeful to get chest tube out today, but still has air leak noted when coughing, and says Surg has already told her it likely won't be taken out today. She would prefer to have everything heal before taking the tube out too early, and thus is amenable to this plan. She is weaned down to her home 5L O2 while I am in the room w her. - Exam Vitals: Temp Pulse Resp BP Pulse Ox 98 F 85 18 133/83 92 02/17/19 04:44 02/17/19 04:44 02/17/19 04:44 02/17/19 04:44 02/17/19 04:44 Exam: General: good eye contact, chronically ill appearing but normal work of breathing Thoracic: decent aeration bilaterally, biphasic coarse breath sounds throughout with prolonged expiration. R chest tube in place. Cardio: Normal S1 and S2, regular rhythm, tachycardic Abdomen: Soft, nontender Extremities: Warm, well perfused. DP pulses 2+ b/l. Edema resolved RLE and trace LLE Neuro: Awake, fully oriented. Speech fluent - Summary of Assessment and Plan Summary of Assessment and Plan: Nany Peck is a 73 F w hx severe COPD on 5L c/b fibrosis and bronchiectasis, RLL cavitary lesion, HFpEF, CAD s/p stents, HTN, MVP, anxiety, who on 02/10 p/w progressive SOB, productive cough w sputum color change, and fever, found to have elevated HR and RR, hypoxia, lactate 2.4, and CT showing possible acute infiltrates, concerning for CAP causing sepsis and COPD exacerbation leading to acute on chronic hypoxic respiratory failure, further c/b acute pneumothorax requiring chest tube placement on 02/14. Acute pneumothorax: s/p chest tube by Lay Villalba on 02/14, tube clamped and lung re-expanded but does still have air leak noticed today while pt coughing - GenSurg and Pulm following, appreciate rec's COPD exacerbation: improving - continue nebs q6h - continue prednisone 60 daily - home inhalers Pneumonia: ID following. Has persistent and uptrending leukocytosis despite clinical improvement and weaning steroids. - continue zosyn RLL Cavitary lung lesion: s/p CT guided lung biopsy 02/15, and pt had some small hemoptysis yesterday - results still pending Acute on chronic hypoxic and hypercapneic respiratory failure: weaned patient today to 5L and maintained sats 92-95% at rest, improving - supplemental O2, wean as able - IS - walk test prior to discharge Hyponatremia: resolved, per Pulm yesterday Lasix was actually not decreased, possible lab error Tachycardia: home lopressor 25 bid increased to 100 bid and pt still tachyc ardic, still leukocytosis - repeat ECG not performed yesterday, will ask that it occur today Sepsis: resolved, still SIRS 2/4 although clinically not septic HFpEF: lasix 40 iv daily (home lasix 20-40 po daily prn), KCl 20 meq daily CAD: home statin, ASA HTN: home lopressor 25 bid Anxiety: home celexa 20 daily GERD: H2B bid PPx: sqh FEN: cardiac, no MIVF Lines: PIV, chest tube Consults: Pulm, ID, GenSurg Code: [id number]-A Dispo: patient requires inpatient eval and management at this time. Anticipate 2-3 days. Will be homegoing w Internal Medicine: Result - Labs CBC & Chem 7: 02/17/19 06:10 02/17/19 06:10 Labs: Short CBC 02/17/19 Range/Units 06:10 WBC 21.0 H (4.3-11.1) K/mcL Hgb 10.7 L (11.5-15.4) g/dL Hct 35.1 L (35.3-44.9) % Plt Count 443 H (140-400) K/mcL BMP 02/17/19 06:10 Sodium 139 Potassium 4.4 Chloride 97 L Carbon Dioxide 34 H BUN 38 H Creatinine 0.49 L Glucose 123 H Calcium 10.4 H - ABG Interpretation ABG results: ABG ABG pH 7.48 pH Units (7.32-7.45) H 02/13/19 23:42 ABG pCO2 44 mmHg (35-45) 02/13/19 23:42 ABG pO2 62 mmHg (85-104) L 02/13/19 23:42 ABG O2 Saturation 93 % (95-98) L 02/13/19 23:42 PT/INR, D-dimer PT 14.9 Seconds (9.4-12.1) H 02/15/19 08:30 967 ng/mLFEU (0-500) H 02/10/19 17:14 - Impressions Impressions Chest X-Ray 02/15/19 13:00 IMPRESSION: Small bore right-sided chest tube with re-expansion of the lung. A minimal pneumothorax persists. Airspace disease in the lung bases and bilateral effusions. D/ / 02/15/2019 13:35:28 Kiah Marmolejo MD / suhas Interpreting Provider: Kiah Marmolejo MD Chest X-Ray 02/16/19 07:00 IMPRESSION: 1. Mild right pneumothorax which has mildly decreased since the prior exam. 2. COPD with stable bibasilar consolidation and mild right effusion. D/ / 02/16/2019 07:41:44 Rizwan Tovar MD / earnold Interpreting Provider: Rizwan Tovar MD Chest X-Ray 02/16/19 17:30 IMPRESSION: 1. Small bore right-sided thoracostomy tube in place with persistent small right pneumothorax. 2. Bibasilar consolidation and effusions redemonstrated similar to previous exam. D/ / Jose A Katz MD / Jose A Katz MD Interpreting Provider: Jose A Katz MD Chest X-Ray 02/17/19 07:00 IMPRESSION: No appreciable pneumothorax noted on today's study. Continued bibasilar opacities although there is evidence of intra fissural fluid on the right since prior exam. D/ / Paty Juarez MD / Paty Juarez MD Interpreting Provider: Paty Juarez MD Consult Discharge Plan - Plan Referrals: Aren Malik Jr, MD [Primary Care Provider] -
[2019-02-17] MEDS: Loratadine 10 MG TABLET PO SCH (08:43)
[2019-02-17] MEDS: Metoprolol 100 MG TABLET PO SCH ×2 (08:43→21:22)
[2019-02-17] MEDS: Aspirin Enteric Coated 81 MG Tablet PO SCH (08:43)
[2019-02-17] MEDS: predniSONE 20 MG TABLET PO SCH (08:43)
[2019-02-17] MEDS: Lactobacillus 1 EACH CAP.SPRINK PO SCH (08:43)
[2019-02-17] MEDS: Piperacillin/Tazobactam 3.375 GM in 0.9 % Sodium Chloride Mini Bag 100 ML IVPB SCH ×3 (08:44→23:09)
[2019-02-17] MEDS: Nystatin SUSP 5 ML UD.LIQ PO SCH ×4 (08:45→21:23)
[2019-02-17] MEDS: Furosemide 40 MG/4 ML VIAL IVP SCH (08:48)
[2019-02-17] MEDS: *HR* Heparin 5,000 UNIT/ML VIAL SQ SCH ×3 (08:48→21:23)
[2019-02-17] MEDS ORDERED: Furosemide 20 MG TABLET PO SCH (09:00)
--- NOTE | 2019-02-17 09:04 | Pulmonology Progress Note ---
Date of Encounter: 02/17/19 Time of Encounter: 09:03 Assessment and Plan (1) Pneumothorax Current Visit: Yes Status: Acute chest tube to water seal. lung has reexpanded. small air leak today. Keep to H20 Seal today repeat CXR in am (2) Acute exacerbation of chronic obstructive airways disease Current Visit: No Status: Acute cont bronchodilators and can taper to prednisone for prolonged taper or 3 weeks. Pulm f/u (3) Cavitary lesion of lung Current Visit: No Status: Chronic s/p CT guided biopsy Fungal elements and sputum unclear significance likely contaminant did have a positive beta D glucan in the past but the rest of fungal serologies are negative fungal cavitary lesion is in the differential appreciated infectious disease evaluation I have instructed the pathologist to stain for fungal infecti ons we will see what the final repass report comes out as I did call pathologist today and it is not ready as of yet. Malignancy is also in the differential however at least preliminary report does not appear to be consistent with that Subjective Principal diagnosis: Dyspnea Interval history: No acute events overnight she sitting up in a chair and says she is feeling okay today. Objective PUL Vital signs: Last Vital Signs Temp 98 F 02/17/19 04:44 Pulse 105 02/17/19 07:53 Resp 19 02/17/19 07:53 BP 117/78 02/17/19 07:53 Pulse Ox 95 02/17/19 07:53 General appearance: other (Tired appearing) Eyes: nonicteric ENT: oropharynx moist Neck: supple Auscultation: bilateral: diminished breath sounds, other (Chest tube noted in satisfactory position) Cardiovascular: regular rate and rhythm Gastrointestinal: normoactive bowel sounds Integumentary: normal Extremities: edema (Trace lower extremity edema) Musculoskeletal: no deformities normal mental status, non-focal exam Results - Laboratory Findings CBC and BMP: 02/17/19 06:10 02/17/19 06:10 ABG ABG pH 7.48 pH Units (7.32-7.45) H 02/13/19 23:42 ABG pCO2 44 mmHg (35-45) 02/13/19 23:42 ABG pO2 62 mmHg (85-104) L 02/13/19 23:42 ABG O2 Saturation 93 % (95-98) L 02/13/19 23:42 PT/INR, D-dimer PT 14.9 Seconds (9.4-12.1) H 02/15/19 08:30 967 ng/mLFEU (0-500) H 02/10/19 17:14 Abnormal lab findings: Abnormal lab results WBC 21.0 K/mcL (4.3-11.1) H 02/17/19 06:10 RBC 3.65 M/mcL (3.82-4.97) L 02/17/19 06:10 Hgb 10.7 g/dL (11.5-15.4) L 02/17/19 06:10 Hct 35.1 % (35.3-44.9) L 02/17/19 06:10 MCHC 30.5 g/dL (31.6-35.5) L 02/17/19 06:10 RDW 15.9 % (11.5-14.5) H 02/17/19 06:10 Plt Count 443 K/mcL (140-400) H 02/17/19 06:10 15.7 K/mcL (1.6-8.9) H 02/14/19 07:03 0.4 K/mcL (0.6-4.6) L 02/13/19 03:02 1.6 K/mcL (0.0-1.3) H 02/10/19 17:14 PT 14.9 Seconds (9.4-12.1) H 02/15/19 08:30 967 ng/mLFEU (0-500) H 02/10/19 17:14 ABG pH 7.48 pH Units (7.32-7.45) H 02/13/19 23:42 ABG pO2 62 mmHg (85-104) L 02/13/19 23:42 ABG HCO3 33 mEq/L (21-27) H 02/13/19 23:42 ABG Total CO2 34 mEq/L (20-26) H 02/13/19 23:42 ABG O2 Saturation 93 % (95-98) L 02/13/19 23:42 ABG Base Excess 8 mEq/L (-2 to 3) H 02/13/19 23:42 Sodium 131 mEq/L (136-145) L 02/16/19 04:30 Potassium 3.1 mEq/L (3.5-5.1) L 02/15/19 04:20 Chloride 97 mEq/L (98-107) L 02/17/19 06:10 Carbon Dioxide 34 mEq/L (23-29) H 02/17/19 06:10 BUN 38 mg/dL (8-23) H 02/17/19 06:10 0.49 mg/dL (0.60-1.20) L 02/17/19 06:10 78 (6-26) H 02/17/19 06:10 Glucose 123 mg/dL (70-105) H 02/17/19 06:10 POC Glucose 146 mg/dL (70-99) H 02/12/19 17:07 306 (280-300) H 02/15/19 04:20 Lactic Acid 2.4 mmol/L (0.5-2.2) H 02/10/19 17:34 Calcium 10.4 mg/dL (8.6-10.3) H 02/17/19 06:10 B-Natriuretic Peptide 512 pg/mL (Less than 100) H 02/13/19 03:02 Trace-intact (Negative) H 02/10/19 23:52 Ur Squamous Epith Cells Moderate per lpf (None-Few) H 02/10/19 23:52 - Microbiology Findings Microbiology Findings: Microbiology, Last 48 Hours 02/15/19 15:57 Respiratory Culture - Preliminary Right Lower Lobe Lung 02/15/19 15:57 Fungal Culture - Preliminary Right Lower Lobe Lung Culture is incubating. 02/10/19 19:30 Blood Culture - Final Peripheral Venipuncture No growth. Final report. 02/10/19 19:30 Blood Culture - Final Peripheral Venipuncture No growth. Final report. - Clinical Findings Intake & Output: Intake & Output 02/16/19 02/17/19 02/17/19 23:59 07:59 15:59 Intake Total 220 / 540 280 / 280 Balance 220 / 220 280 / 280 Weight 64.9 kg Consult Discharge Plan - Plan Referrals: Aren Malik Jr, MD [Primary Care Provider] -
--- NOTE | 2019-02-17 09:31 | AcuteCareSurgery Progress Note ---
Date of Encounter: 02/17/19 Time of Encounter: 08:00 - Assessment and Plan (1) Pneumothorax on right Current Visit: Yes Status: Acute Chest tube is in place and on to water seal. Lung is completely reexpanded however, there is a continued air leak. She is also s/o percutaneous bx of cavitary lung lesion. Chest tube may remain to seal as long as lung stays expanded. CHEST TUBE IS TO STAY IN PLACE UNTIL AIR LEAK RESOLVES. Case d/w Dr. Dillon. Will hold on formal consultation with thoracic surgery as no surgical intervention is indicated at this time. (2) Cavitary pneumonia Current Visit: No Status: Acute Leukocytosis is increasing. Likely d/t steroids but, may be multifactorial and d/t infection. Fungal culture is pending. Start diflucan if positive. Continue IV abx. ID on case. (3) Acute exacerbation of chronic obstructive airways disease Current Visit: No Status: Acute Stable. Pt on O2 per 7L nasal canula with 95% SpO2. (4) CAD (coronary artery disease) Current Visit: No Status: Chronic Stable. Qualifiers: Coronary Disease-Associated Artery/Lesion type: [place] artery [place] vs. t ransplanted heart: unspecified whether council or transplanted heart Associated angina: without angina Qualified Code(s): I25.10 - Atherosclerotic heart disease of [place] coronary artery without angina pectoris (5) Hypertension Current Visit: No Status: Acute Stable Qualifiers: Hypertension type: essential hypertension Qualified Code(s): I10 - Essential (primary) hypertension Subjective Patient reports: no new complaints, feels better, still having pain, tolerating a regular diet, flatus, bowel movement Narrative: Chest tube in place day #3. Pt complains of chest pain in left upper chest. Objective Vital Signs - Last 8 Hours Temp Pulse Resp BP Pulse Ox 02/17/19 07:53 105 19 117/78 95 02/17/19 04:44 98 F 85 18 133/83 92 02/17/19 03:40 16 93 02/17/19 02:54 98 F 85 18 124/73 96 Intake and Output 02/16/19 02/17/19 02/17/19 23:59 07:59 15:59 Intake Total 220 / 540 280 / 280 Balance 220 / 220 280 / 280 Intake: IV Fluids 100 / 300 100 / 100 Zosyn 3.375 GM In 0.9 % Sodium 100 / 300 100 / 100 Chloride (Mini-Bag +) 100 ML @ 25 mls/hr IVPB Q8HR [facility] Rx#: [id number] Oral 120 / 240 180 / 180 Other: Stool Size Moderate Stool Consistency loose soft Stool Characteristics Normal for Patient Stool Color Brown Blood Tinged # Voids 1 # Bowel Movements 1 Weight 64.9 kg Patient Weight 02/17/19 23:59 Weight 64.9 kg - General physical appearance no distress, moderate pain - Neck Neck exam: no masses, trachea midline, no venous distension - Respiratory normal expansion, normal respiratory effort, other (Chest tube is in place. CXR reveals reexpanded lung on right. S/P right lung bx of cavitary lesion. ) rales: right - Cardiovascular Cardiovascular exam: Present: RRR. Absent: JVD - Abdomen Abdomen: Present: bowel sounds present, soft, non tender - Integumentary no rash - Neurologic CN 2-12 grossly intact, normal coordination - Musculoskeletal normal posture - Psychiatric oriented to time, oriented to person, oriented to place - Labs 02/17/19 06:10 02/17/19 06:10 Diabetes panel 02/17/19 Range/Units 06:10 Sodium 139 (136-145) mEq/L Potassium 4.4 (3.5-5.1) mEq/L Chloride 97 L (98-107) mEq/L Carbon Dioxide 34 H (23-29) mEq/L BUN 38 H (8-23) mg/dL Creatinine 0.49 L (0.60-1.20) mg/dL Glucose 123 H (70-105) mg/dL Calcium 10.4 H (8.6-10.3) mg/dL Calcium panel 02/17/19 Range/Units 06:10 Calcium 10.4 H (8.6-10.3) mg/dL Pituitary panel 02/17/19 Range/Units 06:10 Sodium 139 (136-145) mEq/L Potassium 4.4 (3.5-5.1) mEq/L Chloride 97 L (98-107) mEq/L Carbon Dioxide 34 H (23-29) mEq/L BUN 38 H (8-23) mg/dL Creatinine 0.49 L (0.60-1.20) mg/dL Glucose 123 H (70-105) mg/dL Calcium 10.4 H (8.6-10.3) mg/dL Adrenal panel 02/17/19 Range/Units 06:10 Sodium 139 (136-145) mEq/L Potassium 4.4 (3.5-5.1) mEq/L Chloride 97 L (98-107) mEq/L Carbon Dioxide 34 H (23-29) mEq/L BUN 38 H (8-23) mg/dL Creatinine 0.49 L (0.60-1.20) mg/dL Glucose 123 H (70-105) mg/dL Calcium 10.4 H (8.6-10.3) mg/dL Consult Discharge Plan - Plan Referrals: Aren Malik Jr, MD [Primary Care Provider] -
--- NOTE | 2019-02-17 10:21 | Infectious Disease Progress No ---
ID Progress Note Date of Encounter: 02/17/19 Time of Encounter: 10:18 - Subjective Subjective: Patient seen and examined. No acute events noted overnight. Stat post CT- guided lung biopsy 02/15/19. Denies fevers, chills, rigors. Denies chest pain. Reports shortness of breath is at baseline. Reports a moist nonproductive cough. Denies vomiting, diarrhea, or constipation. Reports some nausea this morning. Reports her stools are a little loose. Denies abdominal pain or ur inary complaints. States her appetite is okay and she did eat some breakfast. Denies oral thrush or skin rashes. Complains of pain at the chest tube site. - Objective CBC & Chem 7: 02/18/19 12:35 02/18/19 05:55 - Exam Vitals: Temp Pulse Resp BP Pulse Ox 98 F 105 19 117/78 95 02/17/19 04:44 02/17/19 07:53 02/17/19 07:53 02/17/19 07:53 02/17/19 07:53 Exam: Head: Atraumatic, normal inspection, normocephalic. Eye: EOMI, PERRLA, no scleral icterus noted. ENT: Mucous membranes moist. No odontogenic infection noted. Neck: Normal inspection, no meningismus. Respiratory: Clear to auscultation. No rales, respiratory distress, rhonchi, or wheezes noted. Chest tube noted to the right anterior upper thorax with scant amount of serous sanguinous drainage noted. No crepitus appreciated. Cardiovascular: Regular rate and rhythm, S1 and S2 audible. No murmurs, rubs, or gallops. GI: Soft, nondistended, normal bowel sounds. Extremities: No joint swelling, pedal edema, or tenderness noted. Neurological: Alert, oriented 3, no focal deficits. Psychiatric: normal affect, normal mood. Skin: Dry, intact, warm. Normal color. No rashes. - Assessment and Plan (1) Sepsis Current Visit: No Status: Acute The patient had 3 sepsis criteria on admission. Likely secondary to pneumonia. Improved. WBC remains elevated, likely secondary to steroids. Continues to have some intermittent tachycardia. She has been afebrile. Blood cultures drawn 02/10/19 are negative 2 sets. Qualifiers: Sepsis type: sepsis due to unspecified organism Qualified Code(s): A41.9 - Sepsis, unspecified organism SNOMED Code(s): 34901476 (2) Leukocytosis Current Visit: Yes Status: Acute Likely reactive secondary to steroids. Clinically improved. Continue to trend. Qualifiers: Leukocytosis type: unspecified Qualified Code(s): D72.829 - Elevated white blood cell count, unspecified SNOMED Code(s): 702774724, 528145427 (3) Healthcare-associated pneumonia Current Visit: Yes Status: Acute Location: Right base. Causative organism: Unclear. CT of the chest revealed a right basilar infiltrate concerning for aspiration pneumonia versus other. MRSA screen was negative. Strep pneumococcal and legionella urinary antigens were negative. Respiratory infectious panel was negative. Sputum culture is positive for fungal elements and few gram-positive cocci. Final ID is pending. Currently on IV Zosyn. SNOMED Code(s): 111171832, 437027232 (4) Pneumothorax on right Current Visit: Yes Status: Acute Chest x-ray completed 02/14/19 revealed a large right-sided pneumothorax. Status post chest tube placement 02/14/19 by the acute care surgery team. Repeat chest x-ray shows a possible trace right apical pneumothorax. Chest x-ray 02/16/19 shows a mild right pneumothorax that is mildly decreased as well as findings consistent with COPD and stable bibasilar consolidations. Repeat chest x-ray 02/17/19 shows resolution of the right-sided pneumothorax and continued bibasilar opacities with new evidence of intra-fissural fluid on the right. Acute care surgery team consulted and following. Chest tube to water seal. SNOMED Code(s): 741160624 (5) Acute respiratory failure Current Visit: Yes Status: Acute Likely multifactorial: Pneumonia, COPD, pulmonary fibrosis, bronchiectasis, cavitary lung lesion, and pneumothorax. O2 demands remain high, but decreased from previously. She is currently on high flow O2. Pulmonology consult and following. Qualifiers: Respiratory failure complication: hypoxia Qualified Code(s): J96.01 - Acute respiratory failure with hypoxia SNOMED Code(s): 55780443 (6) Cavitary lesion of lung Current Visit: No Status: Chronic First seen in 11/11/2018. Extensive workup including for TB, fungal element were all negative. Status post bronchoscopy 11/15/2018 and 12/13/2018. Both were also nonrevealing. Cultures were negative. Fungal cultures and AFB were negative. And flow cytometry were almost negative. Patient was treated with 8 weeks of Augmentin and doxycycline with no improvement whatsoever. High index of suspicion for malignancy. Status post CT-guided biopsy 02/15/19. Cultures and pathology are pending. SNOMED Code(s): 961505766 (7) Pulmonary fibrosis Current Visit: Yes Status: Chronic SNOMED Code(s): 87312182 (8) CAD (coronary artery disease) Current Visit: Yes Status: Chronic Qualifiers: Coronary Disease-Associated Artery/Lesion type: [place] artery [place] vs. transplanted heart: unspecified whether [place] or transplanted heart Associated angina: without angina Qualified Code(s): I25.10 - Atherosclerotic heart disease of [place] coronary artery without angina pectoris SNOMED Code(s): 01881071 (9) Hyperlipidemia Current Visit: No Status: Acute Qualifiers: Hyperlipidemia type: Mixed hyperlipidemia SNOMED Code(s): 75222924 - Recommendations Recommendations: Continue to trend CBC with differential. Await biopsy results. Chest tube management per the acute care surgery team. O2 management per the pulmonology team. Continue Zosyn 3.375 g IV every 8 hours. Duration of treatment depends on the clinical picture. Monitor renal function and dose adjust antibiotics. Consult Discharge Plan - Plan Referrals: Aren Malik Jr, MD [Primary Care Provider] - - Attending Attestation I have personally performed a face to face evaluation on this patient. I have reviewed and agree with the care plan. History and Exam by me shows: Assessment and plan: 1.Sepsis 2.Leukocytosis 3.Healthcare associated pneumonia 4.Cavitary lung lesion going for biopsy tomorrow 5.Pulmonary fibrosis 6.Chronic respiratory failure Recommendations: Continue to trend CBC with differential. Await biopsy results. Please send specimen for pathology and culture (aerobic, anaerobic, AFB, and fungal). Chest tube management per the acute care surgery team. O2 management per the pulmonology team. Continue Zosyn 3.375 g IV every 8 hours. Duration of treatment depends on the clinical picture. Monitor renal function and dose adjust antibiotics.
[2019-02-18] MEDS: Ipratropium/Albuterol Neb 3 ML IH SCH ×4 (04:05→21:41)
[2019-02-18] MEDS: *HR* Heparin 5,000 UNIT/ML VIAL SQ SCH ×3 (05:56→22:11)
[2019-02-18 06:21] LABS: Hematocrit 34.8 % (35.3-44.9); Hemoglobin 10.5 g/dL (11.5-15.4); Mean Corpuscular HGB Conc 30.2 g/dL (31.6-35.5); Mean Corpuscular Hemoglobin 29.2 pg (28.0-33.3); Mean Corpuscular Volume 96.9 fL (83.0-100.0); Mean Platelet Volume 10.6 fL (9.4-12.4); Platelet Count 465 K/mcL (140-400); Red Blood Count 3.59 M/mcL (3.82-4.97); White Blood Count 23.2 K/mcL (4.3-11.1)
--- NOTE | 2019-02-18 06:34 | Pulmonology Progress Note ---
Date of Encounter: 02/18/19 Time of Encounter: 06:33 Assessment and Plan (1) Pneumothorax Current Visit: Yes Status: Acute This is a small 8-Yi chest tube which has been in for several days for a spontaneous secondary pneumothorax. On review of her chest x-ray today there is showed to be a worsening in the pneumothorax and she has a larger air leak today in the chamber. I suspect that the tube itself is either become clogged or kinked and this is likely to happen the longer that the small diameter chest tubes are in place. We will contact interventional radiology for placement of a larger bore chest tube which will need to be in and on water seal over the weekend. Unfortunately with motivated his underlying respiratory conditions and poor health she would not be a very good surgical candidate in fact it had a chance to discuss her case with our thoracic surgeon Dr. Dillon. It is possible that she would have to go home with a Heimlich valve in the next week if full resolution is not achieved Qualifiers: Encounter type: subsequent encounter Qualified Code(s): S27.0XXD - Tra umatic pneumothorax, subsequent encounter (2) Acute exacerbation of chronic obstructive airways disease Current Visit: Yes Status: Acute cont bronchodilators and can taper to prednisone for prolonged taper or 3 weeks. Pulm f/u (3) Cavitary lesion of lung Current Visit: No Status: Chronic s/p CT guided biopsy Most likely lung abscess but malignancy cannot be fully excluded histo and micro-from the pathology pending Subjective Principal diagnosis: Dyspnea Interval history: No acute events overnight although she had an episode where breathing where breathing worsened however in general appears to be back to baseline now denies any cough or sputum production denies any hemoptysis. Objective PUL Vital signs: Last Vital Signs Temp 97.6 F 02/18/19 06:05 Pulse 92 02/18/19 06:05 Resp 18 02/18/19 06:05 BP 129/80 02/18/19 06:05 Pulse Ox 91 02/18/19 06:05 General appearance: no acute distress, other (Frail appearing) Eyes: nonicteric ENT: oropharynx moist Effort: normal, other (Chest tube noted in satisfactory position) Auscultation: left: rales, right: diminished breath sounds Cardiovascular: regular rate and rhythm Gastrointestinal: soft, non-tender Integumentary: normal Extremities: no edema Musculoskeletal: no deformities normal mental status, non-focal exam mood appropriate Results - Laboratory Findings CBC and BMP: 02/18/19 05:55 02/18/19 05:55 ABG ABG pH 7.48 pH Units (7.32-7.45) H 02/13/19 23:42 ABG pCO2 44 mmHg (35-45) 02/13/19 23:42 ABG pO2 62 mmHg (85-104) L 02/13/19 23:42 ABG O2 Saturation 93 % (95-98) L 02/13/19 23:42 PT/INR, D-dimer PT 14.9 Seconds (9.4-12.1) H 02/15/19 08:30 967 ng/mLFEU (0-500) H 02/10/19 17:14 Abnormal lab findings: Abnormal lab results WBC 23.2 K/mcL (4.3-11.1) H 02/18/19 05:55 RBC 3.59 M/mcL (3.82-4.97) L 02/18/19 05:55 Hgb 10.5 g/dL (11.5-15.4) L 02/18/19 05:55 Hct 34.8 % (35.3-44.9) L 02/18/19 05:55 MCHC 30.2 g/dL (31.6-35.5) L 02/18/19 05:55 RDW 16.0 % (11.5-14.5) H 02/18/19 05:55 Plt Count 465 K/mcL (140-400) H 02/18/19 05:55 15.7 K/mcL (1.6-8.9) H 02/14/19 07:03 0.4 K/mcL (0.6-4.6) L 02/13/19 03:02 1.6 K/mcL (0.0-1.3) H 02/10/19 17:14 PT 14.9 Seconds (9.4-12.1) H 02/15/19 08:30 967 ng/mLFEU (0-500) H 02/10/19 17:14 ABG pH 7.48 pH Units (7.32-7.45) H 02/13/19 23:42 ABG pO2 62 mmHg (85-104) L 02/13/19 23:42 ABG HCO3 33 mEq/L (21-27) H 02/13/19 23:42 ABG Total CO2 34 mEq/L (20-26) H 02/13/19 23:42 ABG O2 Saturation 93 % (95-98) L 02/13/19 23:42 ABG Base Excess 8 mEq/L (-2 to 3) H 02/13/19 23:42 Sodium 131 mEq/L (136-145) L 02/16/19 04:30 Potassium 3.1 mEq/L (3.5-5.1) L 02/15/19 04:20 Chloride 97 mEq/L (98-107) L 02/17/19 06:10 Carbon Dioxide 34 mEq/L (23-29) H 02/17/19 06:10 BUN 38 mg/dL (8-23) H 02/17/19 06:10 0.49 mg/dL (0.60-1.20) L 02/17/19 06:10 78 (6-26) H 02/17/19 06:10 Glucose 123 mg/dL (70-105) H 02/17/19 06:10 POC Glucose 146 mg/dL (70-99) H 02/12/19 17:07 306 (280-300) H 02/15/19 04:20 Lactic Acid 2.4 mmol/L (0.5-2.2) H 02/10/19 17:34 Calcium 10.4 mg/dL (8.6-10.3) H 02/17/19 06:10 B-Natriuretic Peptide 512 pg/mL (Less than 100) H 02/13/19 03:02 Trace-intact (Negative) H 02/10/19 23:52 Ur Squamous Epith Cells Moderate per lpf (None-Few) H 02/10/19 23:52 - Microbiology Findings Microbiology Findings: Microbiology, Last 48 Hours 02/15/19 15:57 Acid Fast Stain - Final Lung - Right Lower Lobe 02/15/19 15:57 Respiratory Culture - Final Right Lower Lobe Lung 02/15/19 15:57 Fungal Culture - Preliminary Right Lower Lobe Lung Culture is incubating. - Diagnostic Findings Chest x-ray: report reviewed, image reviewed - Clinical Findings Intake & Output: Intake & Output 02/17/19 02/17/19 02/18/19 15:59 23:59 07:59 Intake Total 700 / 1200 220 / 1200 220 / 220 Output Total 400 / 400 500 / 500 Balance 700 / 800 -180 / 800 -280 / -280 Weight 64.9 kg Consult Discharge Plan - Plan Referrals: Aren Malik Jr, MD [Primary Care Provider] -
[2019-02-18 06:40] LABS: BUN/Creatinine Ratio 59 (6-26); Blood Urea Nitrogen 34 mg/dL (8-23); Calcium 10.4 mg/dL (8.6-10.3); Carbon Dioxide 33 mEq/L (23-29); Chloride 99 mEq/L (98-107); Glucose 134 mg/dL (70-105); Osmolality,Calculated 298 (280-300); Potassium 4.8 mEq/L (3.5-5.1); Sodium 139 mEq/L (136-145); eGFR For African Americans > 60 (> 60); eGFR For Non-African Americans > 60 (> 60)
--- NOTE | 2019-02-18 08:59 | Internal Med Progress Note ---
Hospitalist Progress Note - Encounter Date of Encounter: 02/18/19 Time of Encounter: 08:59 - Subjective Interval History: Pt states she feels a bit tired today, had a minor episode of SOB this AM for which her O2 was turned up with good response, otherwise she is sad but accepting of the news that her pneumothorax re-expanded on CXR this AM after having tube clamped, and thus it was put back to suction. She denies any current resting SOB, no change in her stable chest tube chest pain, no leg swelling, no N/V/D. - Exam Vitals: Temp Pulse Resp BP Pulse Ox 97.9 F 99 18 125/70 91 02/18/19 07:55 02/18/19 07:55 02/18/19 07:55 02/18/19 07:55 02/18/19 07:55 Exam: General: good eye contact, chronically ill appearing, normal work of breathing Thoracic: decent aeration bilaterally, biphasic coarse breath sounds throughout with prolonged expiration. R chest tube in place. Cardio: Normal S1 and S2, regular rhythm, tachycardic Abdomen: Soft, nontender Extremities: Warm, well perfused. DP pulses 2+ b/l. Edema resolved Neuro: Awake, fully oriented. Speech fluent - Summary of Assessment and Plan Summary of Assessment and Plan: Nany Peck is a 73 F w hx severe COPD on 5L c/b fibrosis and bronchiectasis, RLL cavitary lesion, HFpEF, CAD s/p stents, HTN, MVP, anxiety, who on 02/10 p/w progressive SOB, productive cough w sputum color change, and fever, found to have elevated HR and RR, hypoxia, lactate 2.4, and CT showing possible acute infiltrates, concerning for CAP causing sepsis and COPD exacerbation leading to acute on chronic hypoxic respiratory failure, further c/b acute pneumothorax requiring chest tube placement on 02/14. Acute pneumothorax: s/p chest tube by Lay Villalba on 02/14, tube clamped and lung initially re-expanded but persistent air leak and today CXR show recurrence of PTX, tube placed back to suction and Pulm has asked IR to replace chest tube w larger bore tube - GenSurg and Pulm following, appreciate rec's COPD: exacerbation improved, continue nebs q6h, home inhalers, and wean prednisone from 60 to 40 Pneumonia: ID following, continue Zosyn (initiated on 02/11) RLL Cavitary lung lesion: s/p CT guided lung biopsy 02/15, per Pulm suspicious for abscess but micro no growth and awaiting path to r/o malignancy - results still pending Sepsis: resolved, still SIRS 2/4 although clinically not septic Leukocytosis: uptrending slightly each of last several days, currently 25, check smear and LDH Tachycardia: home lopressor 25 bid increased to 100 bid and pt still mildly tachycardic Chronic hypoxic and hypercapneic respiratory failure: patient fluctuating between home 5L and up to 8L although on 8L today was 98% HFpEF: lasix 40 iv daily (home lasix 20-40 po daily prn), KCl 20 meq daily CAD: home statin, ASA HTN: home lopressor 25 bid Anxiety: home celexa 20 daily GERD: H2B bid PPx: sqh FEN: cardiac, no MIVF Lines: PIV, chest tube Consults: Pulm, ID, GenSurg Code: [id number]-A Dispo: patient requires inpatient eval and management at this time. Anticipate 3-4 days. Will eventually be homegoing w Internal Medicine: Result - Labs CBC & Chem 7: 02/18/19 12:35 02/18/19 05:55 Labs: Short CBC 02/18/19 Range/Units 05:55 WBC 23.2 H (4.3-11.1) K/mcL Hgb 10.5 L (11.5-15.4) g/dL Hct 34.8 L (35.3-44.9) % Plt Count 465 H (140-400) K/mcL BMP 02/18/19 05:55 Sodium 139 Potassium 4.8 Chloride 99 Carbon Dioxide 33 H BUN 34 H Creatinine 0.58 L Glucose 134 H Calcium 10.4 H - ABG Interpretation ABG results: ABG ABG pH 7.48 pH Units (7.32-7.45) H 02/13/19 23:42 ABG pCO2 44 mmHg (35-45) 02/13/19 23:42 ABG pO2 62 mmHg (85-104) L 02/13/19 23:42 ABG O2 Saturation 93 % (95-98) L 02/13/19 23:42 PT/INR, D-dimer PT 14.9 Seconds (9.4-12.1) H 02/15/19 08:30 967 ng/mLFEU (0-500) H 02/10/19 17:14 - Impressions Impressions Chest X-Ray 02/18/19 06:00 IMPRESSION: 1. Increase in size of a small right basilar hydropneumothorax, with small bore right-sided chest tube in place. 2. Stable bibasilar airspace opacities, which are in part on the right secondary to a recently biopsied cavitary mass. 3. Severe emphysema. D/ / Jarad Fairbanks MD / Jarad Fairbanks MD Interpreting Provider: Jarad Fairbanks MD Consult Discharge Plan - Plan Referrals: Aren Malik Jr, MD [Primary Care Provider] -
[2019-02-18] MEDS: Lactobacillus 1 EACH CAP.SPRINK PO SCH (09:35)
[2019-02-18] MEDS: Furosemide 40 MG/4 ML VIAL IVP SCH (09:36)
[2019-02-18] MEDS: Nystatin SUSP 5 ML UD.LIQ PO SCH ×4 (09:36→20:25)
[2019-02-18] MEDS: predniSONE 20 MG TABLET PO SCH (09:36)
[2019-02-18] MEDS: Metoprolol 100 MG TABLET PO SCH ×2 (09:36→20:26)
[2019-02-18] MEDS: Aspirin Enteric Coated 81 MG Tablet PO SCH (09:36)
[2019-02-18] MEDS: Loratadine 10 MG TABLET PO SCH (09:36)
[2019-02-18] MEDS: Piperacillin/Tazobactam 3.375 GM in 0.9 % Sodium Chloride Mini Bag 100 ML IVPB SCH ×3 (09:37→23:21)
--- NOTE | 2019-02-18 09:37 | AcuteCareSurgery Progress Note ---
<Christy Jin - Last Filed: 02/18/19 09:43> Date of Encounter: 02/18/19 Time of Encounter: 09:35 - Assessment and Plan (1) Pneumothorax on right Current Visit: Yes Status: Acute Status post right chest tube placement day 4 for pneumothorax Chest x-ray today- increase in size of small right basilar hydropneumothorax with small bore right-sided chest tube in place, stable bibasilar airspace opacities, severe emphysema Patient's chest tube was to water seal however after chest x-ray reveals an increase in size of the pneumothorax, the chest tube was placed back to suction. Patient to have follow-up x-ray and one hour to determine if there is improvement in pneumothorax after being returned to suction. May need to consult interventional radiology for a repeat chest catheter depending on next x-ray. (2) Cavitary pneumonia Current Visit: Yes Status: Acute Management per primary Leukocytosis continues to increase Multifactorial versus infection versus steroid use Antibiotic coverage-Zosyn Sputum cultures 02/11/19- fungal elements Fungal culture pending (3) Acute exacerbation of chronic obstructive airways disease Current Visit: Yes Status: Acute Management per primary Stable, currently 91% on 6 L high flow (4) CAD (coronary artery disease) Current Visit: Yes Status: Chronic Stable, denies chest pain. Qualifiers: Coronary Disease-Associated Artery/Lesion type: [place] artery [place] vs. transplanted heart: unspecified whether [place] or transplanted heart Associated angina: without angina Qualified Code(s): I25.10 - Atherosclerotic heart disease of [place] coronary artery without angina pectoris (5) Hypertension Current Visit: Yes Status: Chronic Stable, controlled Qualifiers: Hypertension type: essential hypertension Qualified Code(s): I10 - Essential (primary) hypertension (6) DVT prophylaxis Current Visit: Yes Status: Acute Subcutaneous heparin Subjective Narrative: Patient seen and examined at bedside today. She continues to have a small air l eak on her chest tube which is on waterseal. She denies nausea, vomiting, fever, chills, abdominal pain, dysuria, hematuria, diarrhea, constipation, calf pain. She does admit to some pain around her chest tube. Objective Vital Signs - Last 8 Hours Temp Pulse Resp BP Pulse Ox 02/18/19 07:55 97.9 F 99 18 125/70 91 02/18/19 06:05 97.6 F 92 18 129/80 91 02/18/19 04:07 18 94 Intake and Output 02/17/19 02/18/19 02/18/19 23:59 07:59 15:59 Intake Total 220 / 1200 220 / 220 Output Total 400 / 400 500 / 500 Balance -180 / 800 -280 / -280 Intake: IV Fluids 100 / 300 100 / 100 Zosyn 3.375 GM In 0.9 % Sodium 100 / 300 100 / 100 Chloride (Mini-Bag +) 100 ML @ 25 mls/hr IVPB Q8HR [facility] Rx#: [id number] Oral 120 / 900 120 / 120 Output: Urine 400 / 400 500 / 500 Other: Stool Size Moderate Stool Color Brown # Voids 1 # Bowel Movements 1 Weight 64.9 kg Patient Weight 02/18/19 23:59 Weight 64.9 kg - General physical appearance well developed, well nourished, moderate distress - Eyes PERRL, normal ocular movement - ENT normal mucosa, no congestion - Neck Neck exam: trachea midline, no venous distension - Respiratory normal expansion, normal respiratory effort, other (Coarse breath sounds bilaterally) - Cardiovascular Cardiovascular exam: Present: RRR, no murmurs/rubs/gallops - Abdomen Abdomen: Present: bowel sounds present, soft, non tender - Integumentary no rash, no abnormal pigmentation - Neurologic CN 2-12 grossly intact, normal coordination, normal sensation - Musculoskeletal normal gait, normal posture - Psychiatric oriented to time, oriented to person, oriented to place, speech is normal, memory intact - Labs 02/18/19 05:55 02/18/19 05:55 Diabetes panel 02/18/19 Range/Units 05:55 Sodium 139 (136-145) mEq/L Potassium 4.8 (3.5-5.1) mEq/L Chloride 99 (98-107) mEq/L Carbon Dioxide 33 H (23-29) mEq/L BUN 34 H (8-23) mg/dL Creatinine 0.58 L (0.60-1.20) mg/dL Glucose 134 H (70-105) mg/dL Calcium 10.4 H (8.6-10.3) mg/dL Calcium panel 02/18/19 Range/Units 05:55 Calcium 10.4 H (8.6-10.3) mg/dL Pituitary panel 02/18/19 Range/Units 05:55 Sodium 139 (136-145) mEq/L Potassium 4.8 (3.5-5.1) mEq/L Chloride 99 (98-107) mEq/L Carbon Dioxide 33 H (23-29) mEq/L BUN 34 H (8-23) mg/dL Creatinine 0.58 L (0.60-1.20) mg/dL Glucose 134 H (70-105) mg/dL Calcium 10.4 H (8.6-10.3) mg/dL Adrenal panel 02/18/19 Range/Units 05:55 Sodium 139 (136-145) mEq/L Potassium 4.8 (3.5-5.1) mEq/L Chloride 99 (98-107) mEq/L Carbon Dioxide 33 H (23-29) mEq/L BUN 34 H (8-23) mg/dL Creatinine 0.58 L (0.60-1.20) mg/dL Glucose 134 H (70-105) mg/dL Calcium 10.4 H (8.6-10.3) mg/dL Consult Discharge Plan - Plan Referrals: Aren Malik Jr, MD [Primary Care Provider] - <Edouard Lira - Last Filed: 02/18/19 12:23> Date of Encounter: 02/18/19 Objective Vital Signs - Last 8 Hours Temp Pulse Resp BP Pulse Ox 02/18/19 11:49 98.2 F 102 20 109/68 90 02/18/19 11:03 17 94 02/18/19 07:55 97.9 F 99 18 125/70 91 02/18/19 06:05 97.6 F 92 18 129/80 91 Intake and Output 02/17/19 02/18/19 02/18/19 23:59 07:59 15:59 Intake Total 220 / 1200 220 / 220 Output Total 400 / 400 500 / 500 Balance -180 / 800 -280 / -280 Intake: IV Fluids 100 / 300 100 / 100 Zosyn 3.375 GM In 0.9 % Sodium 100 / 300 100 / 100 Chloride (Mini-Bag +) 100 ML @ 25 mls/hr IVPB Q8HR [facility] Rx#: [id number] Oral 120 / 900 120 / 120 Output: Urine 400 / 400 500 / 500 Other: Stool Size Moderate Stool Color Brown # Voids 1 # Bowel Movements 1 Weight 64.9 kg Patient Weight 02/18/19 23:59 Weight 64.9 kg - Labs 02/18/19 05:55 02/18/19 05:55 Diabetes panel 02/18/19 Range/Units 05:55 Sodium 139 (136-145) mEq/L Potassium 4.8 (3.5-5.1) mEq/L Chloride 99 (98-107) mEq/L Carbon Dioxide 33 H (23-29) mEq/L BUN 34 H (8-23) mg/dL Creatinine 0.58 L (0.60-1.20) mg/dL Glucose 134 H (70-105) mg/dL Calcium 10.4 H (8.6-10.3) mg/dL Calcium panel 02/18/19 Range/Units 05:55 Calcium 10.4 H (8.6-10.3) mg/dL Pituitary panel 02/18/19 Range/Units 05:55 Sodium 139 (136-145) mEq/L Potassium 4.8 (3.5-5.1) mEq/L Chloride 99 (98-107) mEq/L Carbon Dioxide 33 H (23-29) mEq/L BUN 34 H (8-23) mg/dL Creatinine 0.58 L (0.60-1.20) mg/dL Glucose 134 H (70-105) mg/dL Calcium 10.4 H (8.6-10.3) mg/dL Adrenal panel 02/18/19 Range/Units 05:55 Sodium 139 (136-145) mEq/L Potassium 4.8 (3.5-5.1) mEq/L Chloride 99 (98-107) mEq/L Carbon Dioxide 33 H (23-29) mEq/L BUN 34 H (8-23) mg/dL Creatinine 0.58 L (0.60-1.20) mg/dL Glucose 134 H (70-105) mg/dL Calcium 10.4 H (8.6-10.3) mg/dL - Attending Attestation I examined this patient and my medical decision-making was reviewed with the Resident Physician. I agree with the documented findings, disposition and treatment plan as described except to the extent set forth below. The patient is seen and evaluated on morning rounds with the acute care surgery team. On physical examination she was somewhat short of breath but was able to speak with us. When she coughed there were a few small bubbles consistent with air leak. A follow-up chest x-ray demonstrated a slightly larger pneumothorax. We placed the chest tube back on suction. I discussed her care with pulmonology. Pulmonology would like her chest tube upsized to allow for more consistent decompression of the chronic pneumothorax. I personally reviewed the CAT scan of the chest and chest x-rays. CAT scan of the chest demonstrates profound bullous emphysema. Chest x-ray demonstrates loculated pneumothorax. Continue aggressive treatment. We will have interventional radiology upsize the chest tube. Edouard Lira MD FACS
[2019-02-18] MEDS: *HR* HYDROcodone/Acet 5/325 mg TABLET PO PRN ×2 (09:41→17:55)
--- NOTE | 2019-02-18 10:20 | Infectious Disease Progress No ---
ID Progress Note Date of Encounter: 02/18/19 Time of Encounter: 09:55 - Subjective Subjective: Patient seen and examined. No acute events noted overnight. Stat post CT- guided lung biopsy 02/15/19. Denies fevers, chills, rigors. Denies chest pain. Reports shortness of breath is pretty close to baseline. Reports a moist cough with small amount of dark brown sputum. Denies vomiting, diarrhea, or constipation. Denies nausea. Reports her stools are a little loose. Denies a bdominal pain or urinary complaints. States her appetite is okay and she did eat some breakfast. Denies oral thrush or skin rashes. Complains of pain at the chest tube site. - Objective CBC & Chem 7: 02/18/19 12:35 02/18/19 05:55 - Exam Vitals: Temp Pulse Resp BP Pulse Ox 97.9 F 99 18 125/70 91 02/18/19 07:55 02/18/19 07:55 02/18/19 07:55 02/18/19 07:55 02/18/19 07:55 Exam: Head: Atraumatic, normal inspection, normocephalic. Eye: EOMI, PERRLA, no scleral icterus noted. ENT: Mucous membranes moist. No odontogenic infection noted. Neck: Normal inspection, no meningismus. Respiratory: Scattered rhonchi throughout. Chest tube noted to the right anterior upper thorax with scant amount of serous sanguinous drainage noted. No crepitus appreciated. Cardiovascular: Regular rate and rhythm, S1 and S2 audible. No murmurs, rubs, or gallops. GI: Soft, nondistended, normal bowel sounds. Extremities: No joint swelling, pedal edema, or tenderness noted. Neurological: Alert, oriented 3, no focal deficits. Psychiatric: normal affect, normal mood. Skin: Dry, intact, warm. Normal color. No rashes. - Assessment and Plan (1) Sepsis Current Visit: No Status: Acute The patient had 3 sepsis criteria on admission. Likely secondary to pneumonia. Improved. WBC remains elevated, likely secondary to steroids. Continues to have some intermittent tachycardia. She has been afebrile. Blood cultures drawn 02/10/19 are negative 2 sets. Qualifiers: Sepsis type: sepsis due to unspecified organism Qualified Code(s): A41.9 - Sepsis, unspecified organism SNOMED Code(s): 14778313 (2) Leukocytosis Current Visit: Yes Status: Acute Likely reactive secondary to steroids. Clinically improved. Continue to trend. Qualifiers: Leukocytosis type: unspecified Qualified Code(s): D72.829 - Elevated white blood cell count, unspecified SNOMED Code(s): 724961354, 900158558 (3) Healthcare-associated pneumonia Current Visit: Yes Status: Acute Location: Right base. Causative organism: Unclear. CT of the chest revealed a right basilar infiltrate concerning for aspiration pneumonia versus other. MRSA screen was negative. Strep pneumococcal and legionella urinary antigens were negative. Respiratory infectious panel was negative. Sputum culture is positive for fungal elements. Final ID is pending. Fungitell, Aspergillus galactomannan, and Histo Ab pending. Currently on IV Zosyn. SNOMED Code(s): 653134687, 395186851 (4) Pneumothorax on right Current Visit: Yes Status: Acute Chest x-ray completed 02/14/19 revealed a large right-sided pneumothorax. Status post chest tube placement 02/14/19 by the acute care surgery team. Repeat chest x-ray shows a possible trace right apical pneumothorax. Chest x-ray 02/16/19 shows a mild right pneumothorax that is mildly decreased as well as findings consistent with COPD and stable bibasilar consolidations. Repeat chest x-ray 02/17/19 shows resolution of the right-sided pneumothorax and continued bibasilar opacities with new evidence of intra-fissural fluid on the right. Acute care surgery team consulted and following. Chest tube to water seal. SNOMED Code(s): 291589765 (5) Acute respiratory failure Current Visit: Yes Status: Acute Likely multifactorial: Pneumonia, COPD, pulmonary fibrosis, bronchiectasis, cavitary lung lesion, and pneumothorax. O2 demands remain high, but decreased from previously. She is currently on nasal cannula at 7LPM. Pulmonology consult and following. Qualifiers: Respiratory failure complication: hypoxia Qualified Code(s): J96.01 - Acute respiratory failure with hypoxia SNOMED Code(s): 38766517 (6) Cavitary lesion of lung Current Visit: No Status: Chronic First seen in 11/11/2018. Extensive workup including for TB, fungal element were all negative. Status post bronchoscopy 11/15/2018 and 12/13/2018. Both were also nonrevealing. Cultures were negative. Fungal cultures and AFB were negative. And flow cytometry were almost negative. Patient was treated with 8 weeks of Augmentin and doxycycline with no improvement whatsoever. High index of suspicion for malignancy. Status post CT-guided biopsy 02/15/19. Cultures and pathology (including GMS stain) are pending. SNOMED Code(s): 683908426 (7) Pulmonary fibrosis Current Visit: Yes Status: Chronic SNOMED Code(s): 57299668 (8) CAD (coronary artery disease) Current Visit: Yes Status: Chronic Qualifiers: Coronary Disease-Associated Artery/Lesion type: [place] artery [place] vs. transplanted heart: unspecified whether [place] or transplanted heart Associated angina: without angina Qualified Code(s): I25.10 - Atherosclerotic heart disease of [place] coronary artery without angina pectoris SNOMED Code(s): 08906186 (9) Hyperlipidemia Current Visit: No Status: Acute Qualifiers: Hyperlipidemia type: Mixed hyperlipidemia SNOMED Code(s): 85238384 - Recommendations Recommendations: Continue to trend CBC with differential. Await biopsy results. Check procalcitonin. Chest tube management per the acute care surgery team. O2 management per the pulmonology team. Continue Zosyn 3.375 g IV every 8 hours. Duration of treatment depends on the clinical picture. Monitor renal function and dose adjust antibiotics. Consult Discharge Plan - Plan Referrals: Aren Malik Jr, MD [Primary Care Provider] - - Attending Attestation I have personally performed a face to face evaluation on this patient. I have reviewed and agree with the care plan. History and Exam by me shows: Assessment and plan: 1.Sepsis 2.Leukocytosis 3.Healthcare associated pneumonia 4.Cavitary lung lesion going for biopsy tomorrow 5.Pulmonary fibrosis 6.Chronic respiratory failure Recommendations: Continue to trend CBC with differential. Await biopsy results. Please send specimen for pathology and culture (aerobic, anaerobic, AFB, and fungal). Chest tube management per the acute care surgery team. O2 management per the pulmonology team. Continue Zosyn 3.375 g IV every 8 hours. Duration of treatment depends on the clinical picture. Monitor renal function and dose adjust antibiotics.
[2019-02-18 13:03] LABS: Basophils % 0.1 %; Eosinophils % 0.1 %; Hematocrit 35.5 % (35.3-44.9); Hemoglobin 10.7 g/dL (11.5-15.4); Immature Granulocytes % 1.2 % (0-4); Lymphocytes % 3.9 %; Mean Corpuscular HGB Conc 30.1 g/dL (31.6-35.5); Mean Corpuscular Hemoglobin 28.5 pg (28.0-33.3); Mean Corpuscular Volume 94.7 fL (83.0-100.0); Mean Platelet Volume 10.8 fL (9.4-12.4); Monocytes # 1.4 K/mcL (0.0-1.3); Monocytes % 5.6 %; Neutrophils # 22.1 K/mcL (1.6-8.9); Platelet Count 487 K/mcL (140-400); Red Blood Count 3.75 M/mcL (3.82-4.97); Red Cell Distribution Width 16.1 % (11.5-14.5); Segmented Neutrophils % 89.1 %; White Blood Count 24.8 K/mcL (4.3-11.1)
--- NOTE | 2019-02-18 14:39 | IR Procedure Note ---
Date of procedure: 02/18/19 Consent Obtained: Written consent Timeout: Correct patient and procedure verified, Correct site verified, Time out performed, Skin prep completed Local anesthetic: Lidocaine 1% Was there an medical assistant ob gyn present: No Estimated blood loss (cc): 0 Complications: None; Tolerated procedure well Indications: Right pneumothorax Procedure Performed: CT guided right chest tube placement Results/Findings (any specimens removed): 14F right chest tube placed Post Procedure Treatment Plan: monitor on floor Specimen: none
[2019-02-18 15:00] LABS: Lactate Dehydrogenase 226 Units/L (140-271)
[2019-02-18] MEDS: *HR* OxyCODONE Immed Rel 5 MG TABLET PO PRN (19:13)
[2019-02-19] MEDS: *HR* OxyCODONE Immed Rel 5 MG TABLET PO PRN ×4 (01:36→21:59)
[2019-02-19] MEDS: Ipratropium/Albuterol Neb 3 ML IH SCH ×4 (03:22→22:32)
[2019-02-19] MEDS: *HR* Heparin 5,000 UNIT/ML VIAL SQ SCH ×3 (05:10→21:59)
[2019-02-19] MEDS: *HR* HYDROcodone/Acet 5/325 mg TABLET PO PRN (05:20)
[2019-02-19 05:22] LABS: Basophils % 0.1 %; Hematocrit 32.4 % (35.3-44.9); Hemoglobin 9.8 g/dL (11.5-15.4); Immature Granulocytes % 1.1 % (0-4); Lymphocytes # 1.2 K/mcL (0.6-4.6); Lymphocytes % 7.1 %; Mean Corpuscular HGB Conc 30.2 g/dL (31.6-35.5); Mean Corpuscular Hemoglobin 28.7 pg (28.0-33.3); Mean Corpuscular Volume 94.7 fL (83.0-100.0); Mean Platelet Volume 10.7 fL (9.4-12.4); Monocytes # 1.7 K/mcL (0.0-1.3); Monocytes % 10.1 %; Neutrophils # 13.4 K/mcL (1.6-8.9); Platelet Count 448 K/mcL (140-400); Red Blood Count 3.42 M/mcL (3.82-4.97); Segmented Neutrophils % 81.6 %; White Blood Count 16.5 K/mcL (4.3-11.1)
[2019-02-19 05:34] LABS: BUN/Creatinine Ratio 74 (6-26); Blood Urea Nitrogen 31 mg/dL (8-23); Calcium 9.7 mg/dL (8.6-10.3); Carbon Dioxide 32 mEq/L (23-29); Chloride 101 mEq/L (98-107); Glucose 144 mg/dL (70-105); Osmolality,Calculated 293 (280-300); Potassium 4.5 mEq/L (3.5-5.1); Sodium 137 mEq/L (136-145); eGFR For African Americans > 60 (> 60); eGFR For Non-African Americans > 60 (> 60)
--- NOTE | 2019-02-19 06:41 | Pulmonology Progress Note ---
Date of Encounter: 02/19/19 Time of Encounter: 06:41 Assessment and Plan (1) Pneumothorax Current Visit: Yes Status: Acute I reviewed the patient's chest x-ray earlier this morning and showed worsening pneumothorax despite appropriate positioning of the chest tube at the bedside I and noticed immediately patient did not have any early and went through the chest tube circuit to find that the proximal 3-way stopcock was turned to the off position and essentially was "clamped" I opened this up and immediately a large tompkins of air was removed so I suspect that inadvertently between placement in interventional radiology and overnight that to stopcock had been turned to the off position. Repeated the chest x-ray which showed improvement in pneumothorax she does have some worsening subcutaneous emphysema which is also noted on physical examination. Recommend keeping the chest tube to wall suction at -20 cm water overnight and repeating chest x-ray in the morning Qualifiers: Encounter type: subsequent encounter Qualified Code(s): S27.0XXD - Traumatic pneumothorax, subsequent encounter (2) Acute exacerbation of chronic obstructive airways disease Current Visit: Yes Status: Acute cont bronchodilators and can taper to prednisone for prolonged taper or 3 weeks. Pulm f/u (3) Cavitary lesion of lung Current Visit: No Status: Chronic s/p CT guided biopsy Most likely lung abscess but malignancy cannot be fully excluded histo and micro-from the pathology pending Appreciated infectious disease consultation Subjective Principal diagnosis: Dyspnea Interval history: Overnight her breathing has been difficult and she is describing some chest pain at the chest tube insertion site that does not generally responding to [place]. Interventional radiology placed a new 14-Slovenian catheter and removed the Pneumodart. Objective PUL Vital signs: Last Vital Signs Temp 97.7 F 02/19/19 05:14 Pulse 93 02/19/19 05:14 Resp 16 02/19/19 05:14 BP 117/71 02/19/19 05:14 Pulse Ox 90 02/19/19 05:14 General appearance: appears uncomfortable Eyes: nonicteric Effort: mildly labored Auscultation: right: clear, bilateral: rales Cardiovascular: regular rate and rhythm Gastrointestinal: normoactive bowel sounds, soft, non-tender Integumentary: normal Extremities: no edema Musculoskeletal: no deformities normal mental status, non-focal exam mood appropriate Results - Laboratory Findings CBC and BMP: 02/19/19 05:05 02/19/19 05:05 ABG ABG pH 7.48 pH Units (7.32-7.45) H 02/13/19 23:42 ABG pCO2 44 mmHg (35-45) 02/13/19 23:42 ABG pO2 62 mmHg (85-104) L 02/13/19 23:42 ABG O2 Saturation 93 % (95-98) L 02/13/19 23:42 PT/INR, D-dimer PT 14.9 Seconds (9.4-12.1) H 02/15/19 08:30 967 ng/mLFEU (0-500) H 02/10/19 17:14 Abnormal lab findings: Abnormal lab results WBC 16.5 K/mcL (4.3-11.1) H 02/19/19 05:05 RBC 3.42 M/mcL (3.82-4.97) L 02/19/19 05:05 Hgb 9.8 g/dL (11.5-15.4) L 02/19/19 05:05 Hct 32.4 % (35.3-44.9) L 02/19/19 05:05 MCHC 30.2 g/dL (31.6-35.5) L 02/19/19 05:05 RDW 16.0 % (11.5-14.5) H 02/19/19 05:05 Plt Count 448 K/mcL (140-400) H 02/19/19 05:05 13.4 K/mcL (1.6-8.9) H 02/19/19 05:05 0.4 K/mcL (0.6-4.6) L 02/13/19 03:02 1.7 K/mcL (0.0-1.3) H 02/19/19 05:05 Slight increase (Normal) H 02/18/19 12:35 PT 14.9 Seconds (9.4-12.1) H 02/15/19 08:30 967 ng/mLFEU (0-500) H 02/10/19 17:14 ABG pH 7.48 pH Units (7.32-7.45) H 02/13/19 23:42 ABG pO2 62 mmHg (85-104) L 02/13/19 23:42 ABG HCO3 33 mEq/L (21-27) H 02/13/19 23:42 ABG Total CO2 34 mEq/L (20-26) H 02/13/19 23:42 ABG O2 Saturation 93 % (95-98) L 02/13/19 23:42 ABG Base Excess 8 mEq/L (-2 to 3) H 02/13/19 23:42 Sodium 131 mEq/L (136-145) L 02/16/19 04:30 Potassium 3.1 mEq/L (3.5-5.1) L 02/15/19 04:20 Chloride 97 mEq/L (98-107) L 02/17/19 06:10 Carbon Dioxide 32 mEq/L (23-29) H 02/19/19 05:05 BUN 31 mg/dL (8-23) H 02/19/19 05:05 0.42 mg/dL (0.60-1.20) L 02/19/19 05:05 74 (6-26) H 02/19/19 05:05 Glucose 144 mg/dL (70-105) H 02/19/19 05:05 POC Glucose 146 mg/dL (70-99) H 02/12/19 17:07 306 (280-300) H 02/15/19 04:20 Lactic Acid 2.4 mmol/L (0.5-2.2) H 02/10/19 17:34 Calcium 10.4 mg/dL (8.6-10.3) H 02/18/19 05:55 Phosphorus 2.5 mg/dL (2.7-4.5) L 02/18/19 12:35 B-Natriuretic Peptide 512 pg/mL (Less than 100) H 02/13/19 03:02 Trace-intact (Negative) H 02/10/19 23:52 Ur Squamous Epith Cells Moderate per lpf (None-Few) H 02/10/19 23:52 - Microbiology Findings Microbiology Findings: Microbiology, Last 48 Hours 02/15/19 15:57 Acid Fast Stain - Final Lung - Right Lower Lobe 02/15/19 15:57 Respiratory Culture - Final Right Lower Lobe Lung - Diagnostic Findings Chest x-ray: report reviewed, image reviewed - Clinical Findings Intake & Output: Intake & Output 02/18/19 02/18/19 02/19/19 15:59 23:59 07:59 Intake Total 340 / 1140 580 / 1140 100 / 100 Output Total 750 / 1250 Balance -410 / -110 580 / -110 100 / 100 Weight 64.7 kg Consult Discharge Plan - Plan Referrals: Aren Malik Jr, MD [Primary Care Provider] -
--- NOTE | 2019-02-19 08:10 | Internal Med Progress Note ---
Hospitalist Progress Note - Encounter Date of Encounter: 02/19/19 Time of Encounter: 08:09 - Subjective Interval History: Pt tolerated exchange for larger chest tube yesterday. Overnight, her CTx was kept sealed rather than to suction, and this AM her CXR shows further expansion of PTX and subq air. Pt states increased discomfort with breathing. Tube placed to suction this AM with rapid improvement on repeat CXR. However, pt still uncomfortable and unable to eat due to pain/nausea. - Exam Vitals: Temp Pulse Resp BP Pulse Ox 98.1 F 93 18 124/82 94 02/19/19 07:36 02/19/19 07:36 02/19/19 07:36 02/19/19 07:36 02/19/19 07:36 Exam: General: good eye contact, chronically ill appearing, normal work of breathing, today appears more uncomfortable than previously Thoracic: decent aeration bilaterally, biphasic coarse breath sounds throughout with prolonged expiration. R chest tube in place. SubQ crackles noted around chest tube Cardio: Normal S1 and S2, regular rhythm, tachycardic Abdomen: Soft, nontender Extremities: Warm, well perfused. DP pulses 2+ b/l. Edema resolved Neuro: Awake, fully oriented. Speech fluent - Summary of Assessment and Plan Summary of Assessment and Plan: Nany Peck is a 73 F w hx severe COPD on 5L c/b fibrosis and bronchiectasis, RLL cavitary lesion, HFpEF, CAD s/p stents, HTN, MVP, anxiety, who on 02/10 p/w progressive SOB, productive cough w sputum color change, and fever, found to have elevated HR and RR, hypoxia, lactate 2.4, and CT showing possible acute infiltrates, concerning for CAP causing sepsis and COPD exacerbation leading to acute on chronic hypoxic respiratory failure, further c/b acute pneumothorax requiring chest tube placement on 02/14, which was exchanged on 02/18 for larger tube due to increasing PTX and persistent air leak. Acute pneumothorax: exchanged yesterday but kept sealed, this AM again shows worsening, Pulm placed tube to suction as intended with improvement. - Pulm following, appreciate co-management, concerned that patient might need to go home w heimlich valve chest tube Pneumonia: ID following, continue Zosyn (initiated on 02/11) per their rec's RLL Cavitary lung lesion: s/p CT guided lung biopsy 02/15, per Pulm suspicious for abscess but micro no growth and awaiting path to r/o malignancy - results still pending Sepsis: resolved, still SIRS 2/4 although clinically not septic Leukocytosis: finally downtrended today from 25 to 16, LDH wnl and smear pending Tachycardia: home lopressor 25 bid increased early in hospitalization to 100 bid and pt remains mildly tachycardic COPD: exacerbation improved, continue nebs q6h, home inhalers, and slowly taper prednisone over next 2-3 weeks Chronic hypoxic and hypercapneic respiratory failure: home 5L HFpEF: lasix 40 iv daily (home lasix 20-40 po daily prn), KCl 20 meq daily CAD: home statin, ASA HTN: home lopressor 25 bid Anxiety: home celexa 20 daily GERD: H2B bid PPx: sqh FEN: cardiac, no MIVF Lines: PIV, chest tube Consults: Pulm, ID, GenSurg Code: [id number] Dispo: patient requires inpatient eval and management at this time. Anticipate 3-4 days. Will eventually be homegoing w Internal Medicine: Result - Labs CBC & Chem 7: 02/19/19 05:05 02/19/19 05:05 Labs: Short CBC 02/18/19 02/19/19 Range/Units 12:35 05:05 WBC 24.8 H 16.5 H (4.3-11.1) K/mcL Hgb 10.7 L 9.8 L (11.5-15.4) g/dL Hct 35.5 32.4 L (35.3-44.9) % Plt Count 487 H 448 H (140-400) K/mcL Neutrophils # 22.1 H 13.4 H (1.6-8.9) K/mcL BMP 02/18/19 02/19/19 05:55 05:05 Sodium 139 137 Potassium 4.8 4.5 Chloride 99 101 Carbon Dioxide 33 H 32 H BUN 34 H 31 H Creatinine 0.58 L 0.42 L Glucose 134 H 144 H Calcium 10.4 H 9.7 - ABG Interpretation ABG results: ABG ABG pH 7.48 pH Units (7.32-7.45) H 02/13/19 23:42 ABG pCO2 44 mmHg (35-45) 02/13/19 23:42 ABG pO2 62 mmHg (85-104) L 02/13/19 23:42 ABG O2 Saturation 93 % (95-98) L 02/13/19 23:42 PT/INR, D-dimer PT 14.9 Seconds (9.4-12.1) H 02/15/19 08:30 967 ng/mLFEU (0-500) H 02/10/19 17:14 - Impressions Impressions Needle Aspiration CT 02/18/19 00:00 IMPRESSION: 1. CT guided right chest tube placement as discussed above. D/ / Jason Lee MD / Jason Lee MD Interpreting Provider: Jason Lee MD Chest X-Ray 02/18/19 10:00 IMPRESSION: Right apical chest tube with small right apical pneumothorax measuring 1.2 cm in size. Decreased right basal lateral component of the pneumothorax compared to prior exam. Persistent right greater than left pleural effusions with bibasilar atelectasis. Persistent focal consolidation in the right lung base consistent with the known cavitary right lower lobe lesion. D/ / 02/18/2019 11:08:48 Ronald Shannon MD / cheikh Interpreting Provider: Ronald Shannon MD Chest X-Ray 02/18/19 19:12 IMPRESSION: The small bore right chest tube has been replaced by a larger pigtail catheter. There is now a small loculated pneumothorax at the right costophrenic angle. There is no significant pneumothorax. Subcutaneous emphysema in the right lateral chest wall and base of the right neck has increased. No other change. D/ / Steffen Thompson MD / Steffen Thompson MD Interpreting Provider: Steffen Thompson MD Chest X-Ray 02/19/19 07:00 IMPRESSION: 1. Increasing size of the right-sided pneumothorax. 2. Stable bibasilar atelectasis or pneumonia. D/ / Burke Uribe MD / Burke Uribe MD Interpreting Provider: Burke Uribe MD Consult Discharge Plan - Plan Referrals: Aren Malik Jr, MD [Primary Care Provider] -
[2019-02-19] MEDS: Ondansetron 4 MG/2 ML VIAL IVP PRN (08:20)
[2019-02-19] MEDS: Piperacillin/Tazobactam 3.375 GM in 0.9 % Sodium Chloride Mini Bag 100 ML IVPB SCH ×2 (08:31→14:41)
[2019-02-19] MEDS ORDERED: *HR* OxyCODONE Immed Rel 5 MG TABLET PO ONE (09:38)
--- NOTE | 2019-02-19 09:43 | AcuteCareSurgery Progress Note ---
<Christy Jin - Last Filed: 02/19/19 09:54> Date of Encounter: 02/19/19 Time of Encounter: 09:39 - Assessment and Plan (1) Pneumothorax on right Current Visit: Yes Status: Acute Status post right chest tube placement day 5 for pneumothorax Chest 2 was replaced by interventional radiology for larger tube yesterday Initial x-ray this morning revealed increase in size of the right-sided pneumothorax. However, the patient's chest tube was not to suction at that time. Once chest tube placed back to suction a repeat chest x-ray was performed there was a decrease in size of the pneumothorax. No air leak detected Discussed case with pulmonology, patient may need chest tube for prolonged course. Pulmonology to continue care of chest tube. Acute care surgery to sign off. Please call or reconsult for any questions. (2) Cavitary pneumonia Current Visit: Yes Status: Acute Management per primary Leukocytosis continues to increase Multifactorial versus infection versus steroid use Antibiotic coverage-Zosyn Sputum cultures 02/11/19- fungal elements Fungal culture remains pending (3) Acute exacerbation of chronic obstructive airways disease Current Visit: Yes Status: Acute Management per primary Currently SPO2 94% on 7 L high flow (4) CAD (coronary artery disease) Current Visit: Yes Status: Chronic Stable, continues to deny chest pain. Qualifiers: Coronary Disease-Associated Artery/Lesion type: [place] artery [place] vs. transplanted heart: unspecified whether [place] or transplanted heart Associated angina: without angina Qualified Code(s): I25.10 - Atherosclerotic heart disease of [place] coronary artery without angina pectoris (5) Hypertension Current Visit: Yes Status: Chronic Stable, controlled Qualifiers: Hypertension type: essential hypertension Qualified Code(s): I10 - Essential (primary) hypertension (6) DVT prophylaxis Current Visit: Yes Status: Acute Subcutaneous heparin Subjective Narrative: Patient seen and examined at bedside today. Interventional radiology exchanged chest tube yesterday for a larger tube. Chest x-ray this morning showed increasing size of right-sided pneumothorax however the chest tube was not to suction. Once chest tube placed back to suction, a repeat chest x-ray was performed which showed decrease in size of the pneumothorax. There is also subcutaneous emphysema on the right chest wall and neck. Patient admits to some pain around chest tube site. Air leak has resolved. She denies fever, chills, abdominal pain, calf pain. Objective Vital Signs - Last 8 Hours Temp Pulse Resp BP Pulse Ox 02/19/19 07:36 98.1 F 93 18 124/82 94 02/19/19 05:14 97.7 F 93 16 117/71 90 02/19/19 03:22 18 95 Intake and Output 02/18/19 02/19/19 02/19/19 23:59 07:59 15:59 Intake Total 580 / 1140 100 / 220 120 / 220 Balance 580 / -110 100 / 220 120 / 220 Intake: IV Fluids 100 / 300 100 / 100 Zosyn 3.375 GM In 0.9 % Sodium 100 / 300 100 / 100 Chloride (Mini-Bag +) 100 ML @ 25 mls/hr IVPB Q8HR [facility] Rx#: [id number] Oral 480 / 840 120 / 120 Other: Meal Dinner Breakfast Percent of Meal Consumed 10% 5% # Voids 1 Weight 64.7 kg Patient Weight 02/19/19 23:59 Weight 64.7 kg - General physical appearance well developed, well nourished, no distress - Eyes PERRL, normal ocular movement - ENT normal mucosa, no congestion - Neck Neck exam: trachea midline, no venous distension - Respiratory normal expansion, normal respiratory effort, other (Coarse breath sounds bilaterally. Some small areas of crepitus.) - Cardiovascular Cardiovascular exam: Present: RRR, no murmurs/rubs/gallops. Absent: JVD - Abdomen Abdomen: Present: bowel sounds present, soft, non tender - Integumentary no rash - Neurologic CN 2-12 grossly intact, normal coordination, normal sensation - Musculoskeletal normal posture - Psychiatric oriented to time, oriented to person, oriented to place, speech is normal, memory intact - Labs 02/19/19 05:05 02/19/19 05:05 Diabetes panel 02/18/19 02/19/19 Range/Units 05:55 05:05 Sodium 139 137 (136-145) mEq/L Potassium 4.8 4.5 (3.5-5.1) mEq/L Chloride 99 101 (98-107) mEq/L Carbon Dioxide 33 H 32 H (23-29) mEq/L BUN 34 H 31 H (8-23) mg/dL Creatinine 0.58 L 0.42 L (0.60-1.20) mg/dL Glucose 134 H 144 H (70-105) mg/dL Calcium 10.4 H 9.7 (8.6-10.3) mg/dL Calcium panel 02/18/19 02/18/19 02/18/19 Range/Units 05:55 12:35 12:35 Calcium 10.4 H (8.6-10.3) mg/dL Phosphorus 2.5 L (2.7-4.5) mg/dL 25-OH Vitamin D Total 34 (30-80) ng/mL 02/19/19 Range/Units 05:05 Calcium 9.7 (8.6-10.3) mg/dL Phosphorus (2.7-4.5) mg/dL 25-OH Vitamin D Total (30-80) ng/mL Pituitary panel 02/18/19 02/19/19 Range/Units 05:55 05:05 Sodium 139 137 (136-145) mEq/L Potassium 4.8 4.5 (3.5-5.1) mEq/L Chloride 99 101 (98-107) mEq/L Carbon Dioxide 33 H 32 H (23-29) mEq/L BUN 34 H 31 H (8-23) mg/dL Creatinine 0.58 L 0.42 L (0.60-1.20) mg/dL Glucose 134 H 144 H (70-105) mg/dL Calcium 10.4 H 9.7 (8.6-10.3) mg/dL Adrenal panel 02/18/19 02/19/19 Range/Units 05:55 05:05 Sodium 139 137 (136-145) mEq/L Potassium 4.8 4.5 (3.5-5.1) mEq/L Chloride 99 101 (98-107) mEq/L Carbon Dioxide 33 H 32 H (23-29) mEq/L BUN 34 H 31 H (8-23) mg/dL Creatinine 0.58 L 0.42 L (0.60-1.20) mg/dL Glucose 134 H 144 H (70-105) mg/dL Calcium 10.4 H 9.7 (8.6-10.3) mg/dL Consult Discharge Plan - Plan Referrals: Aren Malik Jr, MD [Primary Care Provider] - <Edouard Lira - Last Filed: 02/19/19 12:31> Date of Encounter: 02/19/19 Objective Vital Signs - Last 8 Hours Temp Pulse Resp BP Pulse Ox 02/19/19 11:17 97.6 F 105 14 110/79 88 02/19/19 10:35 17 92 02/19/19 07:36 98.1 F 93 18 124/82 94 02/19/19 05:14 97.7 F 93 16 117/71 90 Intake and Output 02/18/19 02/19/19 02/19/19 23:59 07:59 15:59 Intake Total 580 / 1140 100 / 220 120 / 220 Output Total 301 / 301 Balance 580 / -110 100 / -81 -181 / -81 Intake: IV Fluids 100 / 300 100 / 100 Zosyn 3.375 GM In 0.9 % Sodium 100 / 300 100 / 100 Chloride (Mini-Bag +) 100 ML @ 25 mls/hr IVPB Q8HR [facility] Rx#: [id number] Oral 480 / 840 120 / 120 Output: Urine 300 / 300 Chest Tube Drainage Right Anterior Chest #1 Other: Meal Dinner Breakfast Percent of Meal Consumed 10% 5% # Voids 1 Weight 64.7 kg Patient Weight 02/19/19 23:59 Weight 64.7 kg - Labs 02/19/19 05:05 02/19/19 05:05 Diabetes panel 02/18/19 02/19/19 Range/Units 05:55 05:05 Sodium 139 137 (136-145) mEq/L Potassium 4.8 4.5 (3.5-5.1) mEq/L Chloride 99 101 (98-107) mEq/L Carbon Dioxide 33 H 32 H (23-29) mEq/L BUN 34 H 31 H (8-23) mg/dL Creatinine 0.58 L 0.42 L (0.60-1.20) mg/dL Glucose 134 H 144 H (70-105) mg/dL Calcium 10.4 H 9.7 (8.6-10.3) mg/dL Calcium panel 02/18/19 02/18/19 02/18/19 Range/Units 05:55 12:35 12:35 Calcium 10.4 H (8.6-10.3) mg/dL Phosphorus 2.5 L (2.7-4.5) mg/dL 25-OH Vitamin D Total 34 (30-80) ng/mL 02/19/19 Range/Units 05:05 Calcium 9.7 (8.6-10.3) mg/dL Phosphorus (2.7-4.5) mg/dL 25-OH Vitamin D Total (30-80) ng/mL Pituitary panel 02/18/19 02/19/19 Range/Units 05:55 05:05 Sodium 139 137 (136-145) mEq/L Potassium 4.8 4.5 (3.5-5.1) mEq/L Chloride 99 101 (98-107) mEq/L Carbon Dioxide 33 H 32 H (23-29) mEq/L BUN 34 H 31 H (8-23) mg/dL Creatinine 0.58 L 0.42 L (0.60-1.20) mg/dL Glucose 134 H 144 H (70-105) mg/dL Calcium 10.4 H 9.7 (8.6-10.3) mg/dL Adrenal panel 02/18/19 02/19/19 Range/Units 05:55 05:05 Sodium 139 137 (136-145) mEq/L Potassium 4.8 4.5 (3.5-5.1) mEq/L Chloride 99 101 (98-107) mEq/L Carbon Dioxide 33 H 32 H (23-29) mEq/L BUN 34 H 31 H (8-23) mg/dL Creatinine 0.58 L 0.42 L (0.60-1.20) mg/dL Glucose 134 H 144 H (70-105) mg/dL Calcium 10.4 H 9.7 (8.6-10.3) mg/dL - Attending Attestation I examined this patient and my medical decision-making was reviewed with the Resident Physician. I agree with the documented findings, disposition and treatment plan as described except to the extent set forth below. The patient was seen and evaluated on an acute care surgery morning rounds. The chest tube demonstrates no evidence of air leak. She is maintaining good negative intrathoracic pressure. The tube appears patent with good fluctuation of the water seal level with respiration and cough. The patient is further discussed with pulmonology. We will sign off at this point leaving the chronic chest tube management to pulmonology Edouard Lira MD FACS
[2019-02-19] MEDS: Nystatin SUSP 5 ML UD.LIQ PO SCH ×4 (10:23→21:58)
[2019-02-19] MEDS: Aspirin Enteric Coated 81 MG Tablet PO SCH (10:24)
[2019-02-19] MEDS: Lactobacillus 1 EACH CAP.SPRINK PO SCH (10:24)
[2019-02-19] MEDS: Loratadine 10 MG TABLET PO SCH (10:24)
[2019-02-19] MEDS: Metoprolol 100 MG TABLET PO SCH ×2 (10:24→21:59)
[2019-02-19] MEDS: Furosemide 40 MG/4 ML VIAL IVP SCH (10:25)
[2019-02-19] MEDS: predniSONE 20 MG TABLET PO SCH (10:25)
[2019-02-20] MEDS: Piperacillin/Tazobactam 3.375 GM in 0.9 % Sodium Chloride Mini Bag 100 ML IVPB SCH ×3 (01:16→15:11)
--- NOTE | 2019-02-20 02:00 | Event Note ---
Date of Encounter: 02/20/19 Time of Encounter: 01:50 Alerted by pts. nurse FRANSISCO Interiano that the pts. chest tube seemed to have a leak. Nurse called ICU nurse to come and assess the chest tube as they deal with chest tubes on a regular basis. Nurse found chest tube to have a 2+ leak. Pt. had chest tube placed for pneumothorax. Chest tube was then replaced by interventional radiology for a larger chest tube on 02/18/19. CXR on 02/19/19 showed increase in size of the right-sided pneumothorax, however patient's chest tube was not on suction at that time. Once chest tube placed back to suction, repeat CXR showed a decrease in the size of the pneumothorax. No air leak detected on 02/19/19. Nurse contacted Dr. Lynn with recommendation to get CXR to assess pneumothorax size. Stat 1V Portable CXR ordered. Awaiting results. If pneumothorax has increased in size, nurse instructed to contact Dr. Lynn again for further instructions. CXR resulted at 04:20 which shows right-sided chest tube remains in place. Pneumothorax in the lateral right base is increased in size. The apical component is not identified. There is grossly stable bibasilar airspace disease. Heart size is unchanged. Subcutaneous emphysema in the right chest wall and right side of the neck has improved. Nurse instructed to page Dr. Lynn for further instructions.
[2019-02-20 02:27] LABS: A.galactomannan Ag Index 2.99
[2019-02-20] MEDS: Ipratropium/Albuterol Neb 3 ML IH SCH ×4 (03:40→21:13)
[2019-02-20] MEDS: *HR* Heparin 5,000 UNIT/ML VIAL SQ SCH ×3 (05:20→21:08)
[2019-02-20] MEDS: *HR* OxyCODONE Immed Rel 5 MG TABLET PO PRN ×2 (05:21→21:09)
[2019-02-20 05:48] LABS: Basophils % 0.1 %; Hematocrit 33.4 % (35.3-44.9); Hemoglobin 9.8 g/dL (11.5-15.4); Immature Granulocytes % 1.1 % (0-4); Lymphocytes # 1.2 K/mcL (0.6-4.6); Lymphocytes % 5.5 %; Mean Corpuscular HGB Conc 29.3 g/dL (31.6-35.5); Mean Corpuscular Hemoglobin 28.7 pg (28.0-33.3); Mean Corpuscular Volume 97.9 fL (83.0-100.0); Mean Platelet Volume 10.7 fL (9.4-12.4); Monocytes # 1.9 K/mcL (0.0-1.3); Neutrophils # 18.2 K/mcL (1.6-8.9); Platelet Count 465 K/mcL (140-400); Red Blood Count 3.41 M/mcL (3.82-4.97); Red Cell Distribution Width 15.9 % (11.5-14.5); Segmented Neutrophils % 84.3 %; White Blood Count 21.5 K/mcL (4.3-11.1)
[2019-02-20 06:01] LABS: BUN/Creatinine Ratio 66 (6-26); Blood Urea Nitrogen 37 mg/dL (8-23); Calcium 10.4 mg/dL (8.6-10.3); Carbon Dioxide 36 mEq/L (23-29); Chloride 99 mEq/L (98-107); Glucose 141 mg/dL (70-105); Osmolality,Calculated 297 (280-300); Potassium 5.3 mEq/L (3.5-5.1); Sodium 138 mEq/L (136-145); eGFR For African Americans > 60 (> 60); eGFR For Non-African Americans > 60 (> 60)
--- NOTE | 2019-02-20 07:00 | Pulmonology Progress Note ---
Date of Encounter: 02/20/19 Time of Encounter: 07:00 Assessment and Plan (1) Pneumothorax Current Visit: Yes Status: Acute I reviewed the patient's chest x-ray from overnight and this morning to my read the chest film looks essentially stable. Overall overnight radiologist commented that there was admitted are interval worsening but if this is a case is fairly minor and is not associated any evidence of tension pneumothorax. Clinically she is stable Unfortunately this is a very complicated case of a woman with advanced structural lung disease with active likely lung abscess versus a primary lung malignancy. She has had a persistent air leak despite chest tube placement for many days. I had a long discussion with the on-call interventional radiologist and we are both in agreement to continue serial chest x-rays today and if there is worsening in the right base pneumothorax that the on-call interventional radiologist would come in (Dr Springer) and do a CT-guided chest tube placement. If the patient deteriorates clinically chest x-ray should be ordered on an emergent basis and would call thoracic surgery for placement of a larger bore chest tube especially if any evidence of features of tension pneumothorax If the radiographic stability overnight would need to have a multidisciplinary discussion likely with thoracic surgery and interventional radiology about the best ways to proceed moving forward sometimes in this situation a blood patch can be helpful. Unfortunately her surgical options given her underlying fragility are limited if any and I suspect that it would cause more harm than good Please contact me if any change clinically or radiographically and I will follow closely with you throughout the course of the day. Dr Arriaga is taking over the service tomorrow and I will update him regarding the plan of care. Qualifiers: Encounter type: subsequent encounter Qualified Code(s): S27.0XXD - Traumatic pneumothorax, subsequent encounter (2) Acute exacerbation of chronic obstructive airways disease Current Visit: Yes Status: Acute cont bronchodilators and can taper to prednisone for prolonged taper or 3 weeks. Pulm f/u (3) Cavitary lesion of lung Current Visit: No Status: Chronic s/p CT guided biopsy Most likely lung abscess but malignancy cannot be fully excluded histo and micro-from the pathology pending Appreciated infectious disease consultation Subjective Principal diagnosis: Dyspnea Interval history: Overnight I was called on 2 separate occasions for concern about increased air leak from the chest tube repeat chest x-ray showed possibly interval worsening in the right base pneumothorax however resolution of the apical pneumothorax. Clinically patient had been doing quite well with no change in oxygen saturation or clinical status. She is complaining of some minor pain at the chest tube insertion site otherwise she says that she is "tired" as she did not get much sleep with multiple nursing interventions overnight Objective PUL Vital signs: Last Vital Signs Temp 97.4 F L 02/20/19 03:36 Pulse 91 02/20/19 03:36 Resp 18 02/20/19 03:41 BP 105/67 02/20/19 03:36 Pulse Ox 94 02/20/19 03:41 General appearance: no acute distress Eyes: nonicteric ENT: oropharynx moist Neck: supple Effort: normal, other (Chest tube noted in satisfactory position air leak present) Auscultation: left: rales, right: diminished breath sounds Cardiovascular: regular rate and rhythm Gastrointestinal: normoactive bowel sounds, soft, non-tender Integumentary: normal Extremities: no edema Musculoskeletal: no deformities non-focal exam affect normal Results - Laboratory Findings CBC and BMP: 02/20/19 05:30 02/20/19 05:30 ABG ABG pH 7.48 pH Units (7.32-7.45) H 02/13/19 23:42 ABG pCO2 44 mmHg (35-45) 02/13/19 23:42 ABG pO2 62 mmHg (85-104) L 02/13/19 23:42 ABG O2 Saturation 93 % (95-98) L 02/13/19 23:42 PT/INR, D-dimer PT 14.9 Seconds (9.4-12.1) H 02/15/19 08:30 967 ng/mLFEU (0-500) H 02/10/19 17:14 Abnormal lab findings: Abnormal lab results WBC 21.5 K/mcL (4.3-11.1) H 02/20/19 05:30 RBC 3.41 M/mcL (3.82-4.97) L 02/20/19 05:30 Hgb 9.8 g/dL (11.5-15.4) L 02/20/19 05:30 Hct 33.4 % (35.3-44.9) L 02/20/19 05:30 MCHC 29.3 g/dL (31.6-35.5) L 02/20/19 05:30 RDW 15.9 % (11.5-14.5) H 02/20/19 05:30 Plt Count 465 K/mcL (140-400) H 02/20/19 05:30 18.2 K/mcL (1.6-8.9) H 02/20/19 05:30 0.4 K/mcL (0.6-4.6) L 02/13/19 03:02 1.9 K/mcL (0.0-1.3) H 02/20/19 05:30 Slight increase (Normal) H 02/18/19 12:35 PT 14.9 Seconds (9.4-12.1) H 02/15/19 08:30 967 ng/mLFEU (0-500) H 02/10/19 17:14 ABG pH 7.48 pH Units (7.32-7.45) H 02/13/19 23:42 ABG pO2 62 mmHg (85-104) L 02/13/19 23:42 ABG HCO3 33 mEq/L (21-27) H 02/13/19 23:42 ABG Total CO2 34 mEq/L (20-26) H 02/13/19 23:42 ABG O2 Saturation 93 % (95-98) L 02/13/19 23:42 ABG Base Excess 8 mEq/L (-2 to 3) H 02/13/19 23:42 Sodium 131 mEq/L (136-145) L 02/16/19 04:30 Potassium 5.3 mEq/L (3.5-5.1) H 02/20/19 05:30 Chloride 97 mEq/L (98-107) L 02/17/19 06:10 Carbon Dioxide 36 mEq/L (23-29) H 02/20/19 05:30 BUN 37 mg/dL (8-23) H 02/20/19 05:30 0.56 mg/dL (0.60-1.20) L 02/20/19 05:30 66 (6-26) H 02/20/19 05:30 Glucose 141 mg/dL (70-105) H 02/20/19 05:30 POC Glucose 146 mg/dL (70-99) H 02/12/19 17:07 306 (280-300) H 02/15/19 04:20 Lactic Acid 2.4 mmol/L (0.5-2.2) H 02/10/19 17:34 Calcium 10.4 mg/dL (8.6-10.3) H 02/20/19 05:30 Phosphorus 2.5 mg/dL (2.7-4.5) L 02/18/19 12:35 B-Natriuretic Peptide 512 pg/mL (Less than 100) H 02/13/19 03:02 Trace-intact (Negative) H 02/10/19 23:52 Ur Squamous Epith Cells Moderate per lpf (None-Few) H 02/10/19 23:52 - Microbiology Findings Microbiology Findings: Microbiology, Last 48 Hours 02/19/19 05:05 Blood Fungal Culture - Preliminary Peripheral Venipuncture Culture is incubating and being continuously monitored for growth. Final report to follow. - Diagnostic Findings Chest x-ray: report reviewed, image reviewed - Clinical Findings Intake & Output: Intake & Output 02/19/19 02/19/19 02/20/19 15:59 23:59 07:59 Intake Total 220 / 660 340 / 660 100 / 100 Output Total 301 / 301 Balance -81 / 359 340 / 359 100 / 100 Weight 65.2 kg Consult Discharge Plan - Plan Referrals: Aren Malik Jr, MD [Primary Care Provider] -
--- NOTE | 2019-02-20 07:45 | Internal Med Progress Note ---
Hospitalist Progress Note - Encounter Date of Encounter: 02/20/19 Time of Encounter: 07:45 - Subjective Interval History: Pt states she's still having some discomfort at chest tube site but otherwise is tired. Denies worsening SOB, CP, palpitations, N/V/D, or dizziness. - Exam Vitals: Temp Pulse Resp BP Pulse Ox 97.9 F 95 16 104/70 92 02/20/19 07:44 02/20/19 07:44 02/20/19 07:44 02/20/19 07:44 02/20/19 07:44 Exam: General: good eye contact, chronically ill appearing, normal work of breathing, appears comfortable today but tired Thoracic: decent aeration bilaterally, biphasic coarse breath sounds throughout with prolonged expiration, diminished sounds on R. R chest tube in place. SubQ crackles noted again around chest tube but are improved Cardio: Normal S1 and S2, regular rhythm, tachycardic Abdomen: Soft, nontender Extremities: Warm, well perfused. DP pulses 2+ b/l. No edema Neuro: Awake, fully oriented. Speech fluent - Summary of Assessment and Plan Summary of Assessment and Plan: Nany Peck is a 73 F w hx severe COPD on 5L c/b fibrosis and bronchiectasis, RLL cavitary lesion suspicious for abscess v malignancy, HFpEF, CAD s/p stents, HTN, MVP, anxiety, who on 02/10 p/w progressive SOB, productive cough w sputum color change, and fever, found to have elevated HR and RR, hypoxia, lactate 2.4, and CT showing possible acute infiltrates, concerning for CAP causing sepsis and COPD exacerbation leading to acute on chronic hypoxic respiratory failure, further c/b acute pneumothorax requiring chest tube placement on 02/14, which was exchanged on 02/18 for larger tube due to increasing PTX and persistent air leak. Pt did undergo CT guided lung biopsy of cavitary lesion on 02/15. Pneumothorax: CXR read overnight says possible interval increase, Pulm thinks it appears stable, and pt without any hemodynamic change. - Pulm following, appreciate rec's - check CXR q6h to assess size - if increasing size on CXRs, IR to place CT guided tube into persistent area of PTX (R base) - if develops hemodynamic changes suggestive of tension physiology, CT Surg will be needed - otherwise, plan tomorrow for Pulm/IR/CTSurg team discussion for best approach for persistent PTX - pt will go home w heimlich valve chest tube, but needs proper placement as noted above Pneumonia: ID following, continue Zosyn (initiated on 02/11) per their rec's RLL Cavitary lung lesion: s/p CT guided lung biopsy 02/15, per Pulm suspicious for abscess but micro no growth and awaiting path - ID following - path results still pending - fungal labs show positive Fungitell (b-D-glucan) which was previously positive, and galactomannan now positive however pt currently on Zosyn and thus possibly false positive, spoke w ID and will await fungal blood cultures Sepsis: clinically resolved, although remains persistently SIRS 2/4 Leukocytosis: persistently elevated, covered on zosyn, fungal cultures pending, peripheral smear pending Tachycardia: home lopressor 25 bid increased early in hospitalization to 100 bid and pt remains mildly tachycardic, does have PTX although SBP remains good COPD: exacerbation improved, continue nebs q6h, home inhalers, and slowly taper prednisone over next 2-3 weeks Chronic hypoxic and hypercapneic respiratory failure: home 5L HFpEF: lasix 40 iv daily (home lasix 20-40 po daily prn), KCl 20 meq daily CAD: home statin, ASA HTN: home lopressor 25 bid Anxiety: home celexa 20 daily GERD: H2B bid PPx: sqh FEN: cardiac, no MIVF Lines: PIV, chest tube Consults: Pulm, ID, tomorrow will consult IR and CT Surg Code: DNRCC-A Dispo: patient requires inpatient eval and management at this time. Anticipate 3-4 days. Will eventually be homegoing w Internal Medicine: Result - Labs CBC & Chem 7: 02/20/19 05:30 02/20/19 05:30 Labs: Short CBC 02/20/19 Range/Units 05:30 WBC 21.5 H (4.3-11.1) K/mcL Hgb 9.8 L (11.5-15.4) g/dL Hct 33.4 L (35.3-44.9) % Plt Count 465 H (140-400) K/mcL Neutrophils # 18.2 H (1.6-8.9) K/mcL BMP 02/20/19 05:30 Sodium 138 Potassium 5.3 H Chloride 99 Carbon Dioxide 36 H BUN 37 H Creatinine 0.56 L Glucose 141 H Calcium 10.4 H - ABG Interpretation ABG results: ABG ABG pH 7.48 pH Units (7.32-7.45) H 02/13/19 23:42 ABG pCO2 44 mmHg (35-45) 02/13/19 23:42 ABG pO2 62 mmHg (85-104) L 02/13/19 23:42 ABG O2 Saturation 93 % (95-98) L 02/13/19 23:42 PT/INR, D-dimer PT 14.9 Seconds (9.4-12.1) H 02/15/19 08:30 967 ng/mLFEU (0-500) H 02/10/19 17:14 - Impressions Impressions Chest X-Ray 02/19/19 07:00 IMPRESSION: 1. Increasing size of the right-sided pneumothorax. 2. Stable bibasilar atelectasis or pneumonia. D/ / Burke Uribe MD / Burke Uribe MD Interpreting Provider: Burke Uribe MD Chest X-Ray 02/19/19 08:00 IMPRESSION: Interval repositioning of a right chest tube. A right apical pneumothorax is decreased in size however there has been interval increase in volume of subcutaneous emphysema along the right chest wall and neck. D/ / 02/19/2019 09:10:09 Valeriy Starkey MD / [email or web address] Interpreting Provider: Valeriy Starkey MD Chest X-Ray 02/20/19 01:56 IMPRESSION: The pneumothorax in the lateral right base appears slightly larger. Apical component is no longer seen. D/ / Burke Uribe MD / Burke Uribe MD Interpreting Provider: Burke Uribe MD Consult Discharge Plan - Plan Referrals: Aren Malik Jr, MD [Primary Care Provider] -
[2019-02-20] MEDS: Aspirin Enteric Coated 81 MG Tablet PO SCH (09:01)
[2019-02-20] MEDS: Metoprolol 100 MG TABLET PO SCH ×2 (09:01→21:08)
[2019-02-20] MEDS: Lactobacillus 1 EACH CAP.SPRINK PO SCH (09:01)
[2019-02-20] MEDS: Nystatin SUSP 5 ML UD.LIQ PO SCH ×4 (09:01→21:07)
[2019-02-20] MEDS: predniSONE 20 MG TABLET PO SCH (09:01)
[2019-02-20] MEDS: *HR* LORazepam 0.5 MG TABLET PO PRN ×2 (09:01→15:11)
[2019-02-20] MEDS: Furosemide 40 MG/4 ML VIAL IVP SCH (09:01)
[2019-02-20] MEDS: Loratadine 10 MG TABLET PO SCH (09:01)
[2019-02-20] MEDS: *HR* HYDROcodone/Acet 5/325 mg TABLET PO PRN (11:44)
[2019-02-21] MEDS: Piperacillin/Tazobactam 3.375 GM in 0.9 % Sodium Chloride Mini Bag 100 ML IVPB SCH ×4 (01:24→23:55)
[2019-02-21] MEDS: *HR* OxyCODONE Immed Rel 5 MG TABLET PO PRN ×4 (03:43→22:35)
[2019-02-21] MEDS: Ipratropium/Albuterol Neb 3 ML IH SCH ×4 (03:59→23:22)
[2019-02-21 04:14] LABS: Basophils % 0.1 %; Eosinophils % 0.1 %; Hematocrit 32.8 % (35.3-44.9); Hemoglobin 9.9 g/dL (11.5-15.4); Immature Granulocytes % 1.4 % (0-4); Lymphocytes # 1.4 K/mcL (0.6-4.6); Lymphocytes % 6.2 %; Mean Corpuscular HGB Conc 30.2 g/dL (31.6-35.5); Mean Corpuscular Hemoglobin 29.2 pg (28.0-33.3); Mean Corpuscular Volume 96.8 fL (83.0-100.0); Mean Platelet Volume 10.5 fL (9.4-12.4); Monocytes # 2.2 K/mcL (0.0-1.3); Monocytes % 9.7 %; Neutrophils # 18.9 K/mcL (1.6-8.9); Platelet Count 438 K/mcL (140-400); Red Blood Count 3.39 M/mcL (3.82-4.97); Red Cell Distribution Width 15.9 % (11.5-14.5); Segmented Neutrophils % 82.5 %; White Blood Count 22.9 K/mcL (4.3-11.1)
[2019-02-21 04:33] LABS: BUN/Creatinine Ratio 66 (6-26); Blood Urea Nitrogen 35 mg/dL (8-23); Calcium 9.9 mg/dL (8.6-10.3); Carbon Dioxide 35 mEq/L (23-29); Chloride 98 mEq/L (98-107); Glucose 106 mg/dL (70-105); Osmolality,Calculated 292 (280-300); Potassium 4.8 mEq/L (3.5-5.1); Sodium 137 mEq/L (136-145); eGFR For African Americans > 60 (> 60); eGFR For Non-African Americans > 60 (> 60)
[2019-02-21] MEDS: *HR* Heparin 5,000 UNIT/ML VIAL SQ SCH ×3 (06:23→21:35)
--- NOTE | 2019-02-21 07:48 | Internal Med Progress Note ---
Hospitalist Progress Note - Encounter Date of Encounter: 02/21/19 Time of Encounter: 07:48 - Subjective Interval History: Pt seen shortly after returning from bedside commode to bed, and she is out of breath and tired from it. Daughter present at bedside today. Patient states that her chest pain is stable to mildly decreased from yesterday. She is wondering if she'll have a procedure today. CXRs overnight appeared stable to improved, CTX still with air leak. - Exam Vitals: Temp Pulse Resp BP Pulse Ox 97.7 F 98 20 112/71 97 02/21/19 03:28 02/21/19 03:28 02/21/19 03:59 02/21/19 03:28 02/21/19 03:59 Exam: General: good eye contact, chronically ill appearing, appears comfortable today but tired and out of breath Thoracic: decent aeration bilaterally, biphasic coarse breath sounds throughout with prolonged expiration, diminished sounds on R. R chest tube in place. Cardio: Normal S1 and S2, regular rhythm, tachycardic Abdomen: Soft, nontender Extremities: Warm, well perfused. DP pulses 2+ b/l. No edema Neuro: Awake, fully oriented. Speech fluent - Summary of Assessment and Plan Summary of Assessment and Plan: Nany Peck is a 73 F w hx severe COPD on 5L c/b fibrosis and bronchiectasis, RLL cavitary lesion suspicious for abscess v malignancy, HFpEF, CAD s/p stents, HTN, MVP, anxiety, who on 02/10 p/w progressive SOB, productive cough w sputum color change, and fever, found to have elevated HR and RR, hypoxia, lactate 2.4, and CT showing possible acute infiltrates, concerning for CAP causing sepsis and COPD exacerbation leading to acute on chronic hypoxic respiratory failure. Hospital course c/b acute pneumothorax requiring chest tube placement on 02/14, which was exchanged on 02/18 for larger tube due to increasing PTX and persistent air leak. Pt did undergo CT guided lung biopsy of cavitary lesion on 02/15. Persistent air leak and PTX over the weekend. Pneumothorax: persistent, possible interval improvement overnight - Pulm following, concerned for bronchopulmonary fistula and that pt might need blood patch - pt will go home w heimlich valve chest tube, but needs proper placement as no erica above Pneumonia: ID following, continue Zosyn (initiated on 02/11) per their rec's RLL Cavitary lung lesion: s/p CT guided lung biopsy 02/15, per Pulm suspicious for abscess but micro no growth and awaiting path - ID following - path results still pending - fungal labs show positive Fungitell (b-D-glucan) which was previously positive, and galactomannan now positive however pt currently on Zosyn and thus possibly false positive, spoke w ID and will await fungal blood cultures Sepsis: clinically not septic, although remains persistently SIRS 2/4 - Leukocytosis: persistently elevated, covered on zosyn, fungal cultures pending, peripheral smear pending - Tachycardia: home lopressor 25 bid increased early in hospitalization to 100 bid and pt remains mildly tachycardic, does have PTX although SBP remains good COPD: exacerbation improved, continue nebs q6h, home inhalers, and slowly taper prednisone over next 2-3 weeks (decrease pred to 30 on 02/22) HFpEF: convert to lasix 40 po daily (home dose is 20-40 daily prn), KCl 20 meq daily Chronic hypoxic and hypercapneic respiratory failure: home 5L CAD: home statin, ASA HTN: home lopressor 25 bid Anxiety: home celexa 20 daily GERD: H2B bid PPx: sqh FEN: cardiac, no MIVF Lines: PIV, chest tube Consults: Pulm, ID, Palliative, consider IR Code: DNRCC-A Dispo: patient requires inpatient eval and management at this time. Anticipate 3-4 days. Will eventually be homegoing w Internal Medicine: Result - Labs CBC & Chem 7: 02/21/19 04:00 02/21/19 04:00 Labs: Short CBC 02/21/19 Range/Units 04:00 WBC 22.9 H (4.3-11.1) K/mcL Hgb 9.9 L (11.5-15.4) g/dL Hct 32.8 L (35.3-44.9) % Plt Count 438 H (140-400) K/mcL Neutrophils # 18.9 H (1.6-8.9) K/mcL BMP 02/21/19 04:00 Sodium 137 Potassium 4.8 Chloride 98 Carbon Dioxide 35 H BUN 35 H Creatinine 0.53 L Glucose 106 H Calcium 9.9 - ABG Interpretation ABG results: ABG ABG pH 7.48 pH Units (7.32-7.45) H 02/13/19 23:42 ABG pCO2 44 mmHg (35-45) 02/13/19 23:42 ABG pO2 62 mmHg (85-104) L 02/13/19 23:42 ABG O2 Saturation 93 % (95-98) L 02/13/19 23:42 PT/INR, D-dimer PT 14.9 Seconds (9.4-12.1) H 02/15/19 08:30 967 ng/mLFEU (0-500) H 02/10/19 17:14 - Impressions Impressions Chest X-Ray 02/20/19 07:00 IMPRESSION: Right apical chest tube with slight decrease in size of right lateral pneumothorax. Otherwise stable examination right pleural effusion/hemothorax, right rib fractures and right chest wall subcutaneous emphysema. Stable mild pulmonary edema. D/ / 02/20/2019 09:14:00 Ronald Shannon MD / santiago Interpreting Provider: Ronald Shannon MD Chest X-Ray 02/20/19 13:00 IMPRESSION: Right chest tube remains in place. No significant pneumothorax. Bibasilar volume loss and bilateral pleural effusions unchanged D/ / Gibran Helton MD / Gibran Helton MD Interpreting Provider: Gibran Helton MD Chest X-Ray 02/20/19 19:00 IMPRESSION: Right-sided chest tube. No definite pneumothorax. Patchy airspace opacities bilaterally, may be related to pulmonary edema versus pneumonia. Bibasilar atelectasis. Small pleural effusions. D/ / Oscar Thompson MD / Oscar Thompson MD Interpreting Provider: Oscar Thompson MD Chest X-Ray 02/21/19 07:00 IMPRESSION: Right-sided thoracotomy tube in good position with stable small right apical pneumothorax. Stable consolidative changes seen in the right lung base with a right-sided pleural effusion and atelectatic changes seen at the left lung base. D/ / 02/21/2019 07:42:30 Tony Pinto MD / [email or web address] Interpreting Provider: Tony Pinto MD Consult Discharge Plan - Plan Referrals: Aren Malik Jr, MD [Primary Care Provider] -
[2019-02-21] MEDS: predniSONE 20 MG TABLET PO SCH (09:06)
[2019-02-21] MEDS: Aspirin Enteric Coated 81 MG Tablet PO SCH (09:07)
[2019-02-21] MEDS: Loratadine 10 MG TABLET PO SCH (09:07)
[2019-02-21] MEDS: Lactobacillus 1 EACH CAP.SPRINK PO SCH (09:07)
[2019-02-21] MEDS: Metoprolol 100 MG TABLET PO SCH ×2 (09:07→21:32)
[2019-02-21] MEDS: Nystatin SUSP 5 ML UD.LIQ PO SCH ×4 (09:08→22:34)
[2019-02-21] MEDS: Furosemide 40 MG/4 ML VIAL IVP SCH (09:08)
--- NOTE | 2019-02-21 12:42 | Pulmonology Progress Note ---
Date of Encounter: 02/21/19 Time of Encounter: 09:00 Assessment and Plan (1) Acute and chronic respiratory failure with hypoxia Current Visit: No Status: Acute To continue O2 supplementation as oxygenation and ventilation is stable. Patient has right sided pneumothorax with chest tube drainage on suction will hold off suction put water seal will repeat CXR (2) Pneumothorax on right Current Visit: Yes Status: Acute I repeated the chest x-ray which showed near complete resolution of right-sided pneumothorax to continue chest tube with suction spoke with we will go ahead with CT-guided biopsy tomorrow morning with possible chest tube replacement if needed. To keep her nothing by mouth after midnight the plan of care was discussed with her registered nurse. Patient verbalized understanding the plan of care. 02/21 over the weekend had persistent air leak thinking off for possible blood patch the patient will need had intermittently air leaks Will reassess with the chest x-ray in the morning (3) COPD (chronic obstructive pulmonary disease) Current Visit: Yes Status: Chronic Continue the current regimen of bronchodilators Qualifiers: COPD type: chronic bronchitis Chronic bronchitis type: unspecified Qualified Code(s): J42 - Unspecified chronic bronchitis (4) Cavitary lesion of lung Current Visit: No Status: Chronic Infectious versus inflammatory versus malignancy patient had 2 bronchoscopy which came out negative without much diagnosis counseled about CT-guided biopsy patient got convinced that she is ready for CT-guided biopsy and she is aware of that in case the repeat pneumothorax And she is already has a chest tube in place. I spoke with the the patient and her family everybody verbalized understanding. 02/[address]-guided lung biopsy patient's sputum had some fungal elements in the sputum had serum galactomannan positive, looks like patient on Zosyn can have some false positive galactomannan with the current data with no growth in the microbiology of the tissue this cavity might have some fungal elements in the cavity but there is no convincing evidence of invasive infection like aspergillosis will hold off any antifungal discuss with infectious disease might need second opinion. Discussed with patient . Because of severe bullous disease even with VATS and lung biopsy there will be high chance of alveoli- pleural fistula . 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 Patient was agreeable for the lung biopsy as she is already has chest tube catheter,spoke with intervent ional radiology Since his pneumothorax is stable patient is scheduled for her right lower lobe CT-guided lung biopsy. Patient says her shortness of breath is lot better after the chest tube patient has her appetite back wants to eat. Much cough or sputum production. No fever or chills or any other constitutional symptoms. has some intermittent leak on the right-sided chest tube patient symptoms says she is slowly back to her baseline oxygen supplementation and is slowly back to baseline patient denies much chest pain but while moving around the insertion site patient denies any fever or chills. Objective PUL Vital signs: Last Vital Signs Temp 97.7 F 02/21/19 03:28 Pulse 108 02/21/19 07:47 Resp 24 02/21/19 09:34 BP 124/73 02/21/19 07:47 Pulse Ox 95 02/21/19 09:34 General appearance: no acute distress Eyes: nonicteric ENT: oropharynx moist Auscultation: right: diminished breath sounds, bilateral: wheezes (very minimal scattered wheezes) Cardiovascular: regular rate and rhythm Gastrointestinal: normoactive bowel sounds Extremities: no edema normal mental status, non-focal exam Results - Laboratory Findings CBC and BMP: 02/21/19 04:00 02/21/19 04:00 ABG ABG pH 7.48 pH Units (7.32-7.45) H 02/13/19 23:42 ABG pCO2 44 mmHg (35-45) 02/13/19 23:42 ABG pO2 62 mmHg (85-104) L 02/13/19 23:42 ABG O2 Saturation 93 % (95-98) L 02/13/19 23:42 PT/INR, D-dimer PT 14.9 Seconds (9.4-12.1) H 02/15/19 08:30 967 ng/mLFEU (0-500) H 02/10/19 17:14 Abnormal lab findings: Abnormal lab results WBC 22.9 K/mcL (4.3-11.1) H 02/21/19 04:00 RBC 3.39 M/mcL (3.82-4.97) L 02/21/19 04:00 Hgb 9.9 g/dL (11.5-15.4) L 02/21/19 04:00 Hct 32.8 % (35.3-44.9) L 02/21/19 04:00 MCHC 30.2 g/dL (31.6-35.5) L 02/21/19 04:00 RDW 15.9 % (11.5-14.5) H 02/21/19 04:00 Plt Count 438 K/mcL (140-400) H 02/21/19 04:00 18.9 K/mcL (1.6-8.9) H 02/21/19 04:00 0.4 K/mcL (0.6-4.6) L 02/13/19 03:02 2.2 K/mcL (0.0-1.3) H 02/21/19 04:00 Slight increase (Normal) H 02/18/19 12:35 PT 14.9 Seconds (9.4-12.1) H 02/15/19 08:30 967 ng/mLFEU (0-500) H 02/10/19 17:14 ABG pH 7.48 pH Units (7.32-7.45) H 02/13/19 23:42 ABG pO2 62 mmHg (85-104) L 02/13/19 23:42 ABG HCO3 33 mEq/L (21-27) H 02/13/19 23:42 ABG Total CO2 34 mEq/L (20-26) H 02/13/19 23:42 ABG O2 Saturation 93 % (95-98) L 02/13/19 23:42 ABG Base Excess 8 mEq/L (-2 to 3) H 02/13/19 23:42 Sodium 131 mEq/L (136-145) L 02/16/19 04:30 Potassium 5.3 mEq/L (3.5-5.1) H 02/20/19 05:30 Chloride 97 mEq/L (98-107) L 02/17/19 06:10 Carbon Dioxide 35 mEq/L (23-29) H 02/21/19 04:00 BUN 35 mg/dL (8-23) H 02/21/19 04:00 0.53 mg/dL (0.60-1.20) L 02/21/19 04:00 66 (6-26) H 02/21/19 04:00 Glucose 106 mg/dL (70-105) H 02/21/19 04:00 POC Glucose 146 mg/dL (70-99) H 02/12/19 17:07 306 (280-300) H 02/15/19 04:20 Lactic Acid 2.4 mmol/L (0.5-2.2) H 02/10/19 17:34 Calcium 10.4 mg/dL (8.6-10.3) H 02/20/19 05:30 Phosphorus 2.5 mg/dL (2.7-4.5) L 02/18/19 12:35 B-Natriuretic Peptide 512 pg/mL (Less than 100) H 02/13/19 03:02 Trace-intact (Negative) H 02/10/19 23:52 Ur Squamous Epith Cells Moderate per lpf (None-Few) H 02/10/19 23:52 A. galactomannan Ag POSITIVE (Negative) A 02/17/19 10:35 B-(1,3)-D-Glucan Intrp POSITIVE (Negative) A 02/17/19 10:35 - Microbiology Findings Microbiology Findings: Microbiology, Last 48 Hours 02/19/19 05:05 Blood Fungal Culture - Preliminary Peripheral Venipuncture Culture is incubating and being continuously monitored for growth. Final report to follow. - Clinical Findings Intake & Output: Intake & Output 02/20/19 02/21/19 02/21/19 23:59 07:59 15:59 Intake Total 100 / 540 100 / 100 Output Total 400 / 1300 4 / 4 Balance -300 / -760 100 / 96 -4 96 Weight 65.5 kg Consult Discharge Plan - Plan Referrals: Aren Malik Jr, MD [Primary Care Provider] -
--- NOTE | 2019-02-21 13:05 | Infectious Disease Progress No ---
ID Progress Note Date of Encounter: 02/21/19 Time of Encounter: 13:03 - Subjective Subjective: Patient seen and examined. Weekend notes reviewed. Stat post CT-guided lung biopsy 02/15/19. Status post chest tube exchange 02/18/19. Denies fevers, chills, rigors. Denies chest pain. Reports shortness of breath is pretty close to baseline. Reports a moist cough with small amount of dark brown/red sputum. Denies vomiting, diarrhea, or constipation. Denies nausea. Reports her stools are a little loose. Denies abdominal pain or urinary complaints. States her appetite is okay. Denies oral thrush or skin rashes. Complains of pain at the chest tube site. - Objective CBC & Chem 7: 02/22/19 04:15 02/22/19 04:15 - Exam Vitals: Temp Pulse Resp BP Pulse Ox 97.7 F 108 24 124/73 95 02/21/19 03:28 02/21/19 07:47 02/21/19 09:34 02/21/19 07:47 02/21/19 09:34 Exam: Head: Atraumatic, normal inspection, normocephalic. Eye: EOMI, PERRLA, no scleral icterus noted. ENT: Mucous membranes moist. No odontogenic infection noted. Neck: Normal inspection, no meningismus. Respiratory: [place] crackles throughout. Chest tube noted to the right financial accountant ior thorax with scant amount of serous sanguinous drainage noted. Crepitus appreciated. Cardiovascular: Regular rate and rhythm, S1 and S2 audible. No murmurs, rubs, or gallops. GI: Soft, nondistended, normal bowel sounds. Extremities: No joint swelling, pedal edema, or tenderness noted. Neurological: Alert, oriented 3, no focal deficits. Psychiatric: normal affect, normal mood. Skin: Dry, intact, warm. Normal color. No rashes. - Assessment and Plan (1) Sepsis Current Visit: No Status: Acute The patient had 3 sepsis criteria on admission. Likely secondary to pneumonia. Improved. WBC remains elevated, likely secondary to steroids. Continues to have some intermittent tachycardia. She has been afebrile. Blood cultures drawn 02/10/19 are negative 2 sets. Peripheral smear is pending. Qualifiers: Sepsis type: sepsis due to unspecified organism Qualified Code(s): A41.9 - Sepsis, unspecified organism SNOMED Code(s): 57154461 (2) Leukocytosis Current Visit: Yes Status: Acute Likely reactive secondary to steroids. Clinically improved. Peripheral smear pending. Continue to trend. Qualifiers: Leukocytosis type: unspecified Qualified Code(s): D72.829 - Elevated white blood cell count, unspecified SNOMED Code(s): 630532780, 275421869 (3) Healthcare-associated pneumonia Current Visit: Yes Status: Acute Location: Right base. Causative organism: Unclear. CT of the chest revealed a right basilar infiltrate concerning for aspiration pneumonia versus other. MRSA screen was negative. Strep pneumococcal and legionella urinary antigens were negative. Respiratory infectious panel was negative. Sputum culture is positive for fungal elements. Final ID is pending. Fungitell, Aspergillus galactomannan, and Histo Ab pending. Currently on IV Zosyn (day 10). SNOMED Code(s): 540159694, 436591368 (4) Pneumothorax on right Current Visit: Yes Status: Acute Chest x-ray completed 02/14/19 revealed a large right-sided pneumothorax. Status post chest tube placement 02/14/19 by the acute care surgery team. Repeat chest x-ray shows a possible trace right apical pneumothorax. Chest x-ray 02/16/19 shows a mild right pneumothorax that is mildly decreased as well as findings consistent with COPD and stable bibasilar consolidations. Repeat chest x-ray 02/17/19 shows resolution of the right-sided pneumothorax and continued bibasilar opacities with new evidence of intra-fissural fluid on the right. Status post chest tube exchange 02/18/19, after which chest tube was clamped and patient developed worsening of PTX. Serial CXRs show improvement overnight. Management per the pulmonary team. SNOMED Code(s): 480241256 (5) Acute respiratory failure Current Visit: Yes Status: Acute Likely multifactorial: Pneumonia, COPD, pulmonary fibrosis, bronchiectasis, cavitary lung lesion, and pneumothorax. O2 demands remain high, but decreased from previously. She is currently on nasal cannula at 7LPM. Pulmonology consult and following. Qualifiers: Respiratory failure complication: hypoxia Qualified Code(s): J96.01 - Acute respiratory failure with hypoxia SNOMED Code(s): 22955517 (6) Cavitary lesion of lung Current Visit: No Status: Chronic First seen in 11/11/2018. Extensive workup including for TB, fungal element were all negative. Status post bronchoscopy 11/15/2018 and 12/13/2018. Both were also nonrevealing. Cultures were negative. Fungal cultures and AFB were negative. And flow cytometry were almost negative. Patient was treated with 8 weeks of Augmentin and doxycycline with no improvement whatsoever. High index of suspicion for malignancy. Fungitell and Aspergillus galactomannan positive. Sputum culture positive for fungal elements. Status post CT-guided biopsy 02/15/19. Cultures are NGTD and pathology (including GMS stain) is pending. SNOMED Code(s): 554005630 (7) Pulmonary fibrosis Current Visit: Yes Status: Chronic SNOMED Code(s): 25346003 (8) CAD (coronary artery disease) Current Visit: Yes Status: Chronic Qualifiers: Coronary Disease-Associated Artery/Lesion type: [place] artery [place] vs. transplanted heart: unspecified whether [place] or transplanted heart Associated angina: without angina Qualified Code(s): I25.10 - Atherosclerotic heart disease of [place] coronary artery without angina pectoris SNOMED Code(s): 50845925 (9) Hyperlipidemia Current Visit: No Status: Acute Qualifiers: Hyperlipidemia type: Mixed hyperlipidemia SNOMED Code(s): 05330260 - Recommendations Recommendations: Continue to trend CBC with differential. Await peripheral smear. Await biopsy results. Check procalcitonin. Chest tube management per the pulmonology team. O2 management per the pulmonology team. Continue Zosyn 3.375 g IV every 8 hours. (Day 10). Duration of treatment depends on the clinical picture. Monitor renal function and dose adjust antibiotics. Consult Discharge Plan - Plan Referrals: Aren Malik Jr, MD [Primary Care Provider] - - Attending Attestation I have personally performed a face to face evaluation on this patient. I have reviewed and agree with the care plan. History and Exam by me shows: Assessment and plan: 1.Sepsis 2.Leukocytosis 3.Healthcare associated pneumonia 4.Cavitary lung lesion going for biopsy tomorrow 5.Pulmonary fibrosis 6.Chronic respiratory failure Recommendations: I had a long discussion with and we reviewed the imaging together. I also spoke with microbiology and they asked him what the fungal element in the sputum, which apparently there was no yeast and it was not dimorphic. Patient has been on Zosyn which I do not know if that had anything to do with positive galactomannan Patient is very high risk for surgical intervention for biopsy or a wedge biopsy. Patient has very poor residual pulmonary function. Patient had 2 bronchoscopies in the past in October and November 2018 and had fungal serologies in the past when she had this large cavitary lung lesion and her galactomannan was negative at that time. Patient also had Adrienne on the right lower lobe BAL from 11/15/2018. I do not know if that is what is causing her fungitell to be elevated. At this point I am not sure what else to do. I think the risk of giving her voriconazole outweighs the benefit. Consider repeating galactomannan. Consider transferring to [facility] for second opinion
--- NOTE | 2019-02-21 16:27 | Palliative - Consult Note ---
Date of Encounter: 02/21/19 Time of Encounter: 16:16 - Assessment and Plan (1) Dyspnea Current Visit: No Status: Acute Assessment and plan: Patient at this time is against any palliative intervention as she wants to get better. if SOB worsens, recommend low dose morphine SL 5 mg q4 hrs prn. Qualifiers: Dyspnea type: unspecified Qualified Code(s): R06.00 - Dyspnea, unspecified (2) Goals of care, counseling/discussion Current Visit: No Status: Acute Assessment and plan: 20 minutes: Met with pt and daughter. discussed current medical condition, trajectory of illness, goals of care and treatment options. Patient's health have been deteriorating in the last 3 months. Patient is aware of the progressive nature of her pathology, but is still hopeful for some level of carla very. She is against any idea of hospice, and does not want any palliative treatment at this time. 15 minutes advanced care planning discussion. Patient wants to designate her daughter and as MPOA. Discussed code status, patient confirmed that she wishes to be DNRCCA and DNI. form was filled previously and is in the chart. P is resistent to Palliative care at this time, will follow from a distance. (3) Lesion of lung Current Visit: Yes Status: Acute Assessment and plan: s/p biopsy 02/15, path pending (4) Pneumothorax on right Current Visit: Yes Status: Acute Assessment and plan: pulmonary on the case (5) Palliative care by specialist Current Visit: Yes Status: Acute Palliative-CN HPI - Data of Consult Patient: new to practice Consult date: 02/21/19 Requesting Physician: Helder Nichols Primary Care Provider: Arne Malik Jr, MD - Consult Narrative Palliative Care/Comfort Measures: Palliative care Reason for consult: Goals of care History of present illness: Ms. Peck is a 73 year old female with history of severe COPD with emphysema, cavitary lung lesion was admitted on 02/10/19 for acute on chronic respiratory failure patient has COPD with severe bullous disease complicated by right lower lobe cavitary lesion, s/p bronchoscopy which was negative. She developed right pneumothorax s/p chest tube placement by general surgery. Patient had a CT- guided lung biopsy of cavitary lesion, report to come. However, pneumothorax has failed to resolve, pulmonary contemplating blood patch vs possible discharge home with chest tube. Palliative care consult for goals of care discussion. At the time of exam, patient was sitting on bed, AAOx3, daughter at the bedside. She is in moderate distress, speaking in short sentences, using accessory muscles. complains of some soreness at the point of chest tube placement. Otherwise denies pain, nausea, vomiting. Appetite is better today. CC: Helder Nichols - Time Spent with Patient Time: Total time spent is greater than 50% in coordination of care (as documented) at patient's floor/unit and/or counseling patient: Time with patient: 60 minutes Past Med Surg Social Fam HX - Past Medical History Medical history: CHF, COPD, hypertension Additional medical history: mitral valve prolapse Psychiatric history: anxiety - Past Surgical History Surgical History: angioplasty/stent, breast surgery, cholecystectomy, hysterectomy, orthopedic, other, other Additional surgical history: left breast. back surgery. EGD. 2 heart stents. Nerve stimulator placement. - Social History Smoking Status: Former smoker Smokeless Tobacco Status: No Alcohol use: none Drug use: none - Family History Brother Living Status: Hx Family Cardiac Disorders: Yes Mother Living Status: Hx Family Cardiac Disorders: Yes ("artery disease", CHF) Hx Family GI Disorders: Yes (ulcers) Hx Family Endocrine Disorder: Yes Father Living Status: Hx Family Cardiac Disorders: Yes ("valve problems") Medications and Allergies Citalopram [CeleXA] 20 mg PO DAILY 02/05/16 [History] Loratadine [Claritin] 10 mg PO DAILY 02/05/16 [History] Lovastatin [Mevacor] 40 mg PO HS 02/05/16 [History] Metoprolol [Lopressor] 25 mg PO BID 02/05/16 [History] Nitroglycerin [Nitrostat] 0.4 mg SL Q5M PRN 02/05/16 [History] Albuterol Sulfate [Albuterol Inhaler] 2 puff IH Q4HR PRN #2 [id number] 02/08/16 [Rx] Aspirin [Lo-Dose Aspirin EC] 81 mg PO DAILY 11/12/18 [History] Budesonide/Formoterol 160/4.5 [Symbicort 160/4.5] 2 puff IH BIDR 11/12/18 [History] L. Acidophilus/Pectin, [place] [Acidophilus Probiotic Capsule] 1 cap PO DAILY 11/12/18 [History] Multivitamin [One Daily] 1 tab PO DAILY 11/12/18 [History] raNITIdine HCl [Zantac] 150 mg PO BID 11/12/18 [History] Menthol [Cough Drops] 9.1 mg PO Q2H PRN #0 lozenge 11/19/18 [Rx] Ipratropium/Albuterol Neb [Duoneb] 3 ml IH Q4HR PRN 12/09/18 [History] Melatonin 6 mg PO HS 12/09/18 [History] Guaifenesin [Mucinex] 600 mg PO BID PRN 12/24/18 [History] Potassium Chloride [K-Tab ER] 20 meq PO DAILY 12/24/18 [History] Furosemide [Lasix] 40 mg PO QAM PRN #30 tablet 12/28/18 [Rx] Albuterol Neb [Proventil Neb] 2.5 mg PO TID PRN 02/11/19 [History] Benzonatate [Tessalon] 200 mg PO HS PRN 02/11/19 [History] Diclofenac Sodium [Voltaren] 75 mg PO DAILY PRN 02/11/19 [History] Nystatin [Nystatin Suspension] 4 ml PO QID 02/11/19 [History] Promethazine [Phenergan] 25 mg PO Q6H PRN 02/11/19 [History] Umeclidinium Brm/Vilanterol Tr [Anoro Ellipta 62.5-25 Mcg INH] 2 puff PO DAILY 02/11/19 [History] Allergy/AdvReac Type Severity Reaction Status Date / Time clarithromycin [From Biaxin] Allergy Gastrointestinal Verified 02/11/19 14:48 Upset codeine AdvReac See Verified 02/11/19 14:48 Comments lansoprazole [From Prevacid] AdvReac ulcer Verified 02/11/19 14:48 lisinopril AdvReac Cough Verified 02/11/19 14:48 meloxicam [From Mobic] AdvReac ulcer Verified 02/11/19 14:48 opium (anthroposophic) AdvReac nausea/vomi Verified 02/11/19 14:48 [Opium (Anthroposophic)] ting - Constitutional Constitutional ROS PAL: decreased appetite, fatigue - EENT Additional comments: negative - Cardiovascular Cardiovascular ROS: dyspnea on exertion, no chest pain, no edema - Respiratory Respiratory: cough, dyspnea, dyspnea on exertion - Gastrointestinal Gastrointestinal: no abdominal pain, no bloating, no change in bowel habits - Genitourinary Additional comments: negative - Musculoskeletal Musculoskeletal ROS IM: muscle weakness - Integumentary Additional comments: negative - Neurological Neurological ROS: no abnormal speech, no focal weakness Additional comments: negative - Psychiatric Psychiatric general PM: no depression Palliative Care-Exam - Constitutional Vitals: Temp Pulse Resp BP Pulse Ox 97.7 F 108 24 124/73 95 02/21/19 03:28 02/21/19 07:47 02/21/19 09:34 02/21/19 07:47 02/21/19 09:34 General appearance: Present: thin Exam: ill appearing, in moderate distress - Head Head Exam: Present: atraumatic - Eye Eye exam: Present: EOMI, normal appearance - ENT ENT exam: Present: mucous membranes moist - Neck Neck exam: Present: full ROM - Respiratory Respiratory exam: Present: accessory muscle use, decreased breath sounds, prolonged expiratory phase, rhonchi - Cardiovascular Cardiovascular exam: Present: RRR, +S1, +S2 - GI/Abdominal Exam GI/Abdominal exam: Present: normal bowel sounds. Absent: tenderness - Rectal Rectal exam: Present: deferred - Extremities Exam Extremities exam: Present: full ROM, normal capillary refill. Absent: pedal edema - Neurological Exam Neurological exam: Present: oriented X3, no focal deficits - Psychiatric Psychiatric exam: Present: normal affect, normal mood - Skin Skin exam: Present: intact Internal Medicine - CN: Reslt - Labs CBC & Chem 7: 02/21/19 04:00 02/21/19 04:00 Labs: Short CBC 02/21/19 Range/Units 04:00 WBC 22.9 H (4.3-11.1) K/mcL Hgb 9.9 L (11.5-15.4) g/dL Hct 32.8 L (35.3-44.9) % Plt Count 438 H (140-400) K/mcL Neutrophils # 18.9 H (1.6-8.9) K/mcL BMP 02/21/19 04:00 Sodium 137 Potassium 4.8 Chloride 98 Carbon Dioxide 35 H BUN 35 H Creatinine 0.53 L Glucose 106 H Calcium 9.9 - ABG Interpretation ABG results: ABG ABG pH 7.48 pH Units (7.32-7.45) H 02/13/19 23:42 ABG pCO2 44 mmHg (35-45) 02/13/19 23:42 ABG pO2 62 mmHg (85-104) L 02/13/19 23:42 ABG O2 Saturation 93 % (95-98) L 02/13/19 23:42 PT/INR, D-dimer PT 14.9 Seconds (9.4-12.1) H 02/15/19 08:30 967 ng/mLFEU (0-500) H 02/10/19 17:14 - Impressions Impressions Chest X-Ray 02/18/19 10:00 IMPRESSION: Right apical chest tube with small right apical pneumothorax measuring 1.2 cm in size. Decreased right basal lateral component of the pneumothorax compared to prior exam. Persistent right greater than left pleural effusions with bibasilar atelectasis. Persistent focal consolidation in the right lung base consistent with the known cavitary right lower lobe lesion. D/ / 02/18/2019 11:08:48 Ronald Shannon MD / cheikh Interpreting Provider: Ronald Shannon MD Chest X-Ray 02/20/19 19:00 IMPRESSION: Right-sided chest tube. No definite pneumothorax. Patchy airspace opacities bilaterally, may be related to pulmonary edema versus pneumonia. Bibasilar atelectasis. Small pleural effusions. D/ / Oscar Thompson MD / Oscar Thompson MD Interpreting Provider: Oscar Thompson MD Chest X-Ray 02/21/19 07:00 IMPRESSION: Right-sided thoracotomy tube in good position with stable small right apical pneumothorax. Stable consolidative changes seen in the right lung base with a right-sided pleural effusion and atelectatic changes seen at the left lung base. D/ / 02/21/2019 07:42:30 Tony Pinto MD / flako Interpreting Provider: Tony Pinto MD Consult Discharge Plan - Plan Referrals: Aren Malik Jr, MD [Primary Care Provider] - Palliative Quality Palliative Quality: Screen for Code Status: Yes, Screen for Goals of Care: Yes, Screen for Pain: Yes, If Pain Regimen Started, Initiate Bowel Regimen: NA, Screen for Nausea/Vomitting: Yes Code Status: 02/10/19 21:44 CODE [Resuscitation Status: Active] [RES] Routine Comment: Resuscitation Status: DNR-Comfort Care-Arrest 02/21/19 16:15 CODE [Resuscitation Status: Active] [RES] Routine Comment: Resuscitation Status: [id number] Palliative Scale - Palliative Performance Scale How ambulatory is this patient?: Mainly sit / lie What is patient's level of activity and evidence of disease?: Unable hobby/housework, Significant disease How much self-care assistance does patient require?: Considerable assistance required How much oral intake does the patient have?: Normal or reduced What is this patient's level of consciousness?: Full Palliative Performance Score: 50 %
[2019-02-22] MEDS: Ipratropium/Albuterol Neb 3 ML IH SCH ×4 (03:56→22:33)
[2019-02-22 04:37] LABS: Basophils % 0.1 %; Eosinophils % 0.2 %; Hematocrit 31.8 % (35.3-44.9); Hemoglobin 9.7 g/dL (11.5-15.4); Immature Granulocytes % 1.2 % (0-4); Lymphocytes # 1.3 K/mcL (0.6-4.6); Lymphocytes % 6.4 %; Mean Corpuscular HGB Conc 30.5 g/dL (31.6-35.5); Mean Corpuscular Hemoglobin 29.3 pg (28.0-33.3); Mean Corpuscular Volume 96.1 fL (83.0-100.0); Mean Platelet Volume 10.5 fL (9.4-12.4); Monocytes # 1.9 K/mcL (0.0-1.3); Neutrophils # 17.1 K/mcL (1.6-8.9); Platelet Count 405 K/mcL (140-400); Red Blood Count 3.31 M/mcL (3.82-4.97); Segmented Neutrophils % 83.1 %; White Blood Count 20.6 K/mcL (4.3-11.1)
[2019-02-22 05:05] LABS: BUN/Creatinine Ratio 68 (6-26); Blood Urea Nitrogen 34 mg/dL (8-23); Calcium 9.6 mg/dL (8.6-10.3); Carbon Dioxide 32 mEq/L (23-29); Chloride 99 mEq/L (98-107); Glucose 120 mg/dL (70-105); Magnesium 1.9 mg/dL (1.6-2.6); Osmolality,Calculated 291 (280-300); Potassium 4.6 mEq/L (3.5-5.1); Sodium 136 mEq/L (136-145); eGFR For African Americans > 60 (> 60); eGFR For Non-African Americans > 60 (> 60)
[2019-02-22] MEDS: *HR* Heparin 5,000 UNIT/ML VIAL SQ SCH ×3 (06:26→22:25)
--- NOTE | 2019-02-22 07:45 | Internal Med Progress Note ---
Hospitalist Progress Note - Encounter Date of Encounter: 02/22/19 Time of Encounter: 07:45 - Subjective Interval History: Extensive discussions with patient today. Still has air leak and wants to pursue patch to help reach goal of getting chest tube out. Additionally, ID consultation uncertain of what's going on and with current equivocal evidence does not want to commit patient to care home antifungal therapy without diagnosis, and thus recommended transfer to [facility] for second opinion. Patient with financial concerns in this regard as well as thinks this will prolong her hospitalization, but is unrealistically hopeful that a second opinion could off er additional therapies to help restore her to better function. She has poor insight into her severe pulmonary status. She initially opted for transfer during team meeting w Pulm, ID, and myself, but subsequently opted for trying to patch lungs here to get chest tube out and return home. - Exam Vitals: Temp Pulse Resp BP Pulse Ox 98.4 F 97 16 112/71 91 02/22/19 05:56 02/22/19 05:56 02/22/19 05:56 02/22/19 05:56 02/22/19 05:56 Exam: General: good eye contact, chronically ill appearing, appears comfortable today Thoracic: decent aeration bilaterally, biphasic coarse breath sounds throughout with prolonged expiration, diminished sounds on R. R chest tube in place. Cardio: Normal S1 and S2, regular rhythm, tachycardic Abdomen: Soft, nontender Extremities: Warm, well perfused. DP pulses 2+ b/l. No edema Neuro: Awake, fully oriented. Speech fluent - Summary of Assessment and Plan Summary of Assessment and Plan: Nany Peck is a 73 F w hx severe COPD on 5L c/b fibrosis and bronchiectasis, RLL cavitary lesion suspicious for abscess v malignancy, HFpEF, CAD s/p stents, HTN, MVP, anxiety, who on 02/10 p/w progressive SOB, productive cough w sputum color change, and fever, found to have elevated HR and RR, hypoxia, lactate 2.4, and CT showing possible acute infiltrates, concerning for CAP causing sepsis and COPD exacerbation leading to acute on chronic hypoxic respiratory failure. Hospital course c/b acute pneumothorax requiring chest tube placement on 02/14, which was exchanged on 02/18 for larger tube due to increasing PTX and persistent air leak. Pt did undergo CT guided lung biopsy of cavitary lesion on 02/15. Persistent air leak and PTX. Pneumothorax: persistent, Pulm concerned for bronchopulmonary fistula - Pulm to order Blood Patch tomorrow Pneumonia: ID following, d/c Zosyn today (rec'd 12 days and procalcitonin negative) RLL Cavitary lung lesion: s/p CT guided lung biopsy 02/15, per Pulm suspicious for abscess but micro no growth and awaiting path. Fungal labs show positive Fungitell (b-D-glucan) which was previously positive, and galactomannan now positive however pt currently on Zosyn and thus possibly false positive, CompFix w Aspergillus ab positive 1:16 and histo weakly positive 1:8 - ID following - path results still pending - fungal blood cultures pending Sepsis: clinically not septic in appearance, although remains persistently SIRS 2/4 - Leukocytosis: persistently elevated despite 12 days zosyn, neutrophilic predominance, query fungal infection - Tachycardia: home lopressor 25 bid increased early in hospitalization to 100 bid and pt remains mildly tachycardic, does have PTX although SBP remains good Severe emphysematous COPD: exacerbation improved, continue nebs q6h, home inhalers, and slowly taper prednisone over next 2-3 weeks (decrease pred to 30 on 02/22) Chronic hypoxic and hypercapneic respiratory failure: home 5L HFpEF: convert to lasix 40 po daily (home dose is 20-40 daily prn), KCl 20 meq daily Severe protein calorie malnutrition: see nutrition notes CAD: home statin, ASA HTN: home lopressor 25 bid Anxiety: home celexa 20 daily GERD: H2B bid PPx: sqh FEN: cardiac, no MIVF Lines: PIV, chest tube Consults: Pulm, ID, Palliative, IR Code: DNRCC-A Dispo: patient requires inpatient eval and management at this time. Anticipate 2-3 days. Will eventually be homegoing w and will need referral to [facility] ID Internal Medicine: Result - Labs CBC & Chem 7: 02/22/19 04:15 02/22/19 04:15 Labs: Short CBC 02/22/19 Range/Units 04:15 WBC 20.6 H (4.3-11.1) K/mcL Hgb 9.7 L (11.5-15.4) g/dL Hct 31.8 L (35.3-44.9) % Plt Count 405 H (140-400) K/mcL Neutrophils # 17.1 H (1.6-8.9) K/mcL BMP 02/22/19 04:15 Sodium 136 Potassium 4.6 Chloride 99 Carbon Dioxide 32 H BUN 34 H Creatinine 0.50 L Glucose 120 H Calcium 9.6 - ABG Interpretation ABG results: ABG ABG pH 7.48 pH Units (7.32-7.45) H 02/13/19 23:42 ABG pCO2 44 mmHg (35-45) 02/13/19 23:42 ABG pO2 62 mmHg (85-104) L 02/13/19 23:42 ABG O2 Saturation 93 % (95-98) L 02/13/19 23:42 PT/INR, D-dimer PT 14.9 Seconds (9.4-12.1) H 02/15/19 08:30 967 ng/mLFEU (0-500) H 02/10/19 17:14 - Impressions Impressions Chest X-Ray 02/18/19 10:00 IMPRESSION: Right apical chest tube with small right apical pneumothorax measuring 1.2 cm in size. Decreased right basal lateral component of the pneumothorax compared to prior exam. Persistent right greater than left pleural effusions with bibasilar atelectasis. Persistent focal consolidation in the right lung base consistent with the known cavitary right lower lobe lesion. D/ / 02/18/2019 11:08:48 Ronald Shannon MD / cheikh Interpreting Provider: Ronald Shannon MD Chest X-Ray 02/21/19 07:00 IMPRESSION: Right-sided thoracotomy tube in good position with stable small right apical pneumothorax. Stable consolidative changes seen in the right lung base with a right-sided pleural effusion and atelectatic changes seen at the left lung base. D/ / 02/21/2019 07:42:30 Tony Pnito MD / flako Interpreting Provider: Tony Pnito MD Consult Discharge Plan - Plan Referrals: Aren Malik Jr, MD [Primary Care Provider] -
[2019-02-22 08:12] LABS: Phosphorous 2.5 mg/dL (2.7-4.5)
[2019-02-22] MEDS: Furosemide 40 MG TABLET PO SCH (08:22)
[2019-02-22] MEDS: Aspirin Enteric Coated 81 MG Tablet PO SCH (08:22)
[2019-02-22] MEDS: Metoprolol 100 MG TABLET PO SCH ×2 (08:22→22:18)
[2019-02-22] MEDS: Lactobacillus 1 EACH CAP.SPRINK PO SCH (08:22)
[2019-02-22] MEDS: Loratadine 10 MG TABLET PO SCH (08:23)
[2019-02-22] MEDS: predniSONE 20 MG TABLET PO SCH (08:26)
[2019-02-22] MEDS: Nystatin SUSP 5 ML UD.LIQ PO SCH ×4 (08:26→22:19)
[2019-02-22] MEDS: Piperacillin/Tazobactam 3.375 GM in 0.9 % Sodium Chloride Mini Bag 100 ML IVPB SCH ×2 (08:27→22:26)
[2019-02-22] MEDS: *HR* HYDROcodone/Acet 5/325 mg TABLET PO PRN ×2 (08:45→18:49)
--- NOTE | 2019-02-22 09:48 | Infectious Disease Progress No ---
ID Progress Note Date of Encounter: 02/22/19 Time of Encounter: 09:30 - Subjective Subjective: Patient seen and examined. No acute events noted overnight. Stat post CT-guided lung biopsy 02/15/19. Status post chest tube exchange 02/18/19. Denies fevers, chills, rigors. Denies chest pain. Reports shortness of breath is pretty close to baseline. Reports a moist cough with small amount of dark brown/red sputum. Denies vomiting, diarrhea, or constipation. Denies nausea. Reports her stools are a little loose. Denies abdominal pain or urinary complaints. States her appetite is okay. Denies oral thrush or skin rashes. Complains of pain at the chest tube site. - Objective CBC & Chem 7: 02/22/19 04:15 02/22/19 04:15 - Exam Vitals: Temp Pulse Resp BP Pulse Ox 97.7 F 106 18 108/61 95 02/22/19 07:58 02/22/19 07:58 02/22/19 07:58 02/22/19 07:58 02/22/19 07:58 Exam: Head: Atraumatic, normal inspection, normocephalic. Eye: EOMI, PERRLA, no scleral icterus noted. ENT: Mucous membranes moist. No odontogenic infection noted. Neck: Normal inspection, no meningismus. Respiratory: [place] crackles throughout. Chest tube noted to the right posterior thorax with scant amount of serous sanguinous drainage noted. Crepitus appreciated, but improved. Cardiovascular: Regular rate and rhythm, S1 and S2 audible. No murmurs, rubs, or gallops. GI: Soft, nondistended, normal bowel sounds. Extremities: No joint swelling, pedal edema, or tenderness noted. Neurological: Alert, oriented 3, no focal deficits. Psychiatric: normal affect, normal mood. Skin: Dry, intact, warm. Normal color. No rashes. - Assessment and Plan (1) Sepsis Current Visit: No Status: Acute The patient had 3 sepsis criteria on admission. Likely secondary to pneumonia. Improved. WBC remains elevated, likely secondary to steroids. Continues to have some intermittent tachycardia. She has been afebrile. Blood cultures drawn 02/10/19 are negative 2 sets. Peripheral smear is negative for toxic granules or Dohle bodies. Qualifiers: Sepsis type: sepsis due to unspecified organism Qualified Code(s): A41.9 - Sepsis, unspecified organism SNOMED Code(s): 91598132 (2) Leukocytosis Current Visit: Yes Status: Acute Likely reactive secondary to steroids. Clinically improved. Peripheral smear negative for toxic granules or Dohle bodies. Continue to trend. Qualifiers: Leukocytosis type: unspecified Qualified Code(s): D72.829 - Elevated white blood cell count, unspecified SNOMED Code(s): 523512007, 387530681 (3) Healthcare-associated pneumonia Current Visit: Yes Status: Acute Location: Right base. Causative organism: Unclear. CT of the chest revealed a right basilar infiltrate concerning for aspiration pneumonia versus other. MRSA screen was negative. Strep pneumococcal and legionella urinary antigens were negative. Respiratory infectious panel was negative. Sputum culture is positive for fungal elements. Final ID is pending. Fungitell and Asp. galactomannan positive, however the patient has been on Zosyn which could cause a false-positive Asp. galactomannan. Procalcitonin 0.03. Currently on IV Zosyn (day 11). SNOMED Code(s): 602158242, 254926536 (4) Pneumothorax on right Current Visit: Yes Status: Acute Chest x-ray completed 02/14/19 revealed a large right-sided pneumothorax. Status post chest tube placement 02/14/19 by the acute care surgery team. Repeat chest x-ray shows a possible trace right apical pneumothorax. Chest x-ray 02/16/19 shows a mild right pneumothorax that is mildly decreased as well as findings consistent with COPD and stable bibasilar consolidations. Repeat chest x-ray 02/17/19 shows resolution of the right-sided pneumothorax and continued bibasilar opacities with new evidence of intra-fissural fluid on the right. Status post chest tube exchange 02/18/19, after which chest tube was clamped and patient developed worsening of PTX. Serial CXRs show improvement. Management per the pulmonary team. SNOMED Code(s): 359259795 (5) Acute respiratory failure Current Visit: Yes Status: Acute Likely multifactorial: Pneumonia, COPD, pulmonary fibrosis, bronchiectasis, cavitary lung lesion, and pneumothorax. O2 demands remain high, but decreased from previously. She is currently on nasal cannula at 7LPM. Pulmonology consult and following. Qualifiers: Respiratory failure complication: hypoxia Qualified Code(s): J96.01 - Acute respiratory failure with hypoxia SNOMED Code(s): 68141146 (6) Cavitary lesion of lung Current Visit: No Status: Chronic First seen in 11/11/2018. Extensive workup including for TB, fungal element were all negative. Status post bronchoscopy 11/15/2018 and 12/13/2018. Both were also nonrevealing. Cultures were negative. Fungal cultures and AFB were negative. And flow cytometry were almost negative. Patient was treated with 8 weeks of Augmentin and doxycycline with no improvement whatsoever. High index of suspicion for malignancy. Fungitell and Aspergillus galactomannan positive. Sputum culture positive for fungal elements. Status post CT-guided biopsy 02/15/19. Cultures are NGTD and pathology (including GMS stain) is pending. SNOMED Code(s): 236303524 (7) Pulmonary fibrosis Current Visit: Yes Status: Chronic SNOMED Code(s): 33648907 (8) CAD (coronary artery disease) Current Visit: Yes Status: Chronic Qualifiers: Coronary Disease-Associated Artery/Lesion type: [place] artery [place] vs. transplanted heart: unspecified whether [place] or transplanted heart Associated angina: without angina Qualified Code(s): I25.10 - Atherosclerotic heart disease of [place] coronary artery without angina pectoris SNOMED Code(s): 58688818 (9) Hyperlipidemia Current Visit: No Status: Acute Qualifiers: Hyperlipidemia type: Mixed hyperlipidemia SNOMED Code(s): 01777102 - Recommendations Recommendations: Continue to trend CBC with differential. Await biopsy results. Chest tube management per the pulmonology team. O2 management per the pulmonology team. Consider transfer to tertiary care center for second opinion. Continue Zosyn 3.375 g IV every 8 hours. (Day 11). Duration of treatment depends on the clinical picture. Monitor renal function and dose adjust antibiotics. Consult Discharge Plan - Plan Referrals: Aren Malik Jr, MD [Primary Care Provider] - - Attending Attestation I have personally performed a face to face evaluation on this patient. I have reviewed and agree with the care plan. History and Exam by me shows: Assessment and plan: 1.Sepsis 2.Leukocytosis 3.Healthcare associated pneumonia 4.Cavitary lung lesion status post biopsy 02/15/2019 5.Pulmonary fibrosis 6.Chronic respiratory failure Recommendations: Patient really stable at this point. I had a very long discussion with the patient spent almost 45 minutes on explained to her why the galactomannan is delayed is an 80 even showed her and her daughter who is at bedside all the results and explained the possibilities of false positive. Negative and the Histoplasma antibody and all this other stuff. I also explained to her that I do not have any concrete evidence that this is fungal. Suggested that the patient is a second opinion [place]. Family and patient said they want to think about it. There was also concern of payment and if this can have any financial burden. I discussed with the protective services social worker who went in and saw them. Later apparently the patient and the family agreed to the transfer. So I gave Dr. Betancourt and the pulmonary team and myself only all went down and discussed with the patient and she was told to agreeable to go. Once I left the room I am not sure what happened but the hospitalist Brent about half an hour later and said the patient wants to stay. I am not sure that they really had anything to offer her [place] but the fact that the only infectious disease doctor and this establishment and the fact that I feel there are some questions that I do not seem to have the answer to, I was hoping a fresh set of eyes on the patient and a large infectious disease team like at [facility] might have something else to offer. And if they did I told the family and the patient that I will be happy to follow up on it as an outpatient. I guess now the patient wants to stay. I am not sure if it should continue antibiotics. I will repeat CT chest because the x-ray still shows consolidation. I will resume the Zosyn and then we will go from there. Prognosis is guarded at best
[2019-02-22 10:17] LABS: Coccidioides Ab by CF <1:2 (<1:2)
[2019-02-22 10:18] LABS: Aspergillus Ab by CF 1:16 (<1:8)
--- NOTE | 2019-02-22 12:50 | Pulmonology Progress Note ---
Date of Encounter: 02/22/19 Time of Encounter: 10:00 Assessment and Plan (1) Acute and chronic respiratory failure with hypoxia Current Visit: No Status: Acute To continue O2 supplementation as oxygenation and ventilation is stable. Patient has right sided pneumothorax with chest tube drainage on suction will hold off suction put water seal will repeat CXR 12/23 continue O2 supplementation oxygenation and ventilation is stable right- sided pneumothorax with chest tube drainage with water seal patient still has intermittent leak is almost to 48 hours of intermittent leak we will plan for blood patch tomorrow with interventional radiology (2) Pneumothorax on right Current Visit: Yes Status: Acute I repeated the chest x-ray which showed near complete resolution of right-sided pneumothorax to continue chest tube with suction spoke with we will go ahead with CT-guided biopsy tomorrow morning with possible chest tube replacement if needed. To keep her nothing by mouth after midnight the plan of care was discussed with her registered nurse. Patient verbalized understanding the plan of care. 02/21 over the weekend had persistent air leak thinking off for possible blood patch the patient will need had intermittently air leaks Will reassess with the chest x-ray in the morning 02/22 can is still has intermittent leak with some tiny apical pneumothorax. Patient is willing to try blood patch we will speak with interventional radiologist tomorrow. (3) COPD (chronic obstructive pulmonary disease) Current Visit: Yes Status: Chronic Continue the current regimen of bronchodilators Qualifiers: COPD type: chronic bronchitis Chronic bronchitis type: unspecified Qualified Code(s): J42 - Unspecified chronic bronchitis (4) Cavitary lesion of lung Current Visit: No Status: Chronic Infectious versus inflammatory versus malignancy patient had 2 bronchoscopy which came out negative without much diagnosis counseled about CT-guided biopsy patient got convinced that she is ready for CT-guided biopsy and she is aware of that in case the repeat pneumothorax And she is already has a chest tube in place. I spoke with the the patient and her family everybody verbalized understanding. 02/[address]-guided lung biopsy patient's sputum had some fungal elements in the sputum had serum galactomannan positive, looks like patient on Zosyn can have some false positive galactomannan with the current data with no growth in the microbiology of the tissue this cavity might have some fungal elements in the cavity but there is no convincing evidence of invasive infection like aspergillosis will hold off any antifungal discuss with infectious disease might need second opinion. Discussed with patient . Because of severe bullous disease even with VATS and lung biopsy there will be high chance of alveoli- pleural fistula . 02/22 infectious disease recommended transfer to tertiary care center for second opinion agree with infectious disease to hold off any azoles for her cavitary lesion still pathology pending will call pathology and discuss about the pathology results. Subjective Principal diagnosis: Dyspnea Interval history: Patient was admitted for acute on chronic respiratory failure patient is COPD with severe bullous disease complicated by right lower lobe cavitary lesion had to bronchoscopy which was negative patient was contemplating on CT-guided biopsy [employer] she developed and right loss pneumothorax supported by chest tube placement by general surgery repeat chest x-ray which was done by me showed almost complete resolution of the pneumothorax. Patient was agreeable for the lung biopsy as she is already has chest tube catheter,spoke with int erventional radiology Since his pneumothorax is stable patient is scheduled for her right lower lobe CT-guided lung biopsy. Patient says her shortness of breath is lot better after the chest tube patient has her appetite back wants to eat. Much cough or sputum production. No fever or chills or any other constitutional symptoms. has some intermittent leak on the right-sided chest tube patient symptoms says she is slowly back to her baseline oxygen supplementation and is slowly back to baseline patient denies much chest pain but while moving around the insertion site patient denies any fever or chills. 02/22 patient is symptomatically lot better denies much chest pain chest tig htness patient still has some intermittent air leak through the chest tube. Patient is on waterseal drainage with tiny apical pneumothorax in the repeat chest x-ray. Objective PUL Vital signs: Last Vital Signs Temp 97.7 F 02/22/19 07:58 Pulse 90 02/22/19 11:39 Resp 18 02/22/19 11:39 BP 94/55 02/22/19 11:39 Pulse Ox 94 02/22/19 11:39 General appearance: no acute distress Effort: normal Auscultation: bilateral: diminished breath sounds (Bases), wheezes (Scattered minimal wheezes) Cardiovascular: regular rate and rhythm Gastrointestinal: normoactive bowel sounds Extremities: no edema normal mental status, non-focal exam depressed Results - Laboratory Findings CBC and BMP: 02/22/19 04:15 02/22/19 04:15 ABG ABG pH 7.48 pH Units (7.32-7.45) H 02/13/19 23:42 ABG pCO2 44 mmHg (35-45) 02/13/19 23:42 ABG pO2 62 mmHg (85-104) L 02/13/19 23:42 ABG O2 Saturation 93 % (95-98) L 02/13/19 23:42 PT/INR, D-dimer PT 14.9 Seconds (9.4-12.1) H 02/15/19 08:30 967 ng/mLFEU (0-500) H 02/10/19 17:14 Abnormal lab findings: Abnormal lab results WBC 20.6 K/mcL (4.3-11.1) H 02/22/19 04:15 RBC 3.31 M/mcL (3.82-4.97) L 02/22/19 04:15 Hgb 9.7 g/dL (11.5-15.4) L 02/22/19 04:15 Hct 31.8 % (35.3-44.9) L 02/22/19 04:15 MCHC 30.5 g/dL (31.6-35.5) L 02/22/19 04:15 RDW 16.0 % (11.5-14.5) H 02/22/19 04:15 Plt Count 405 K/mcL (140-400) H 02/22/19 04:15 17.1 K/mcL (1.6-8.9) H 02/22/19 04:15 0.4 K/mcL (0.6-4.6) L 02/13/19 03:02 1.9 K/mcL (0.0-1.3) H 02/22/19 04:15 Slight increase (Normal) H 02/18/19 12:35 ESR 118 mm/hr (0-15) H 02/22/19 04:15 PT 14.9 Seconds (9.4-12.1) H 02/15/19 08:30 967 ng/mLFEU (0-500) H 02/10/19 17:14 ABG pH 7.48 pH Units (7.32-7.45) H 02/13/19 23:42 ABG pO2 62 mmHg (85-104) L 02/13/19 23:42 ABG HCO3 33 mEq/L (21-27) H 02/13/19 23:42 ABG Total CO2 34 mEq/L (20-26) H 02/13/19 23:42 ABG O2 Saturation 93 % (95-98) L 02/13/19 23:42 ABG Base Excess 8 mEq/L (-2 to 3) H 02/13/19 23:42 Sodium 131 mEq/L (136-145) L 02/16/19 04:30 Potassium 5.3 mEq/L (3.5-5.1) H 02/20/19 05:30 Chloride 97 mEq/L (98-107) L 02/17/19 06:10 Carbon Dioxide 32 mEq/L (23-29) H 02/22/19 04:15 BUN 34 mg/dL (8-23) H 02/22/19 04:15 0.50 mg/dL (0.60-1.20) L 02/22/19 04:15 68 (6-26) H 02/22/19 04:15 Glucose 120 mg/dL (70-105) H 02/22/19 04:15 POC Glucose 146 mg/dL (70-99) H 02/12/19 17:07 306 (280-300) H 02/15/19 04:20 Lactic Acid 2.4 mmol/L (0.5-2.2) H 02/10/19 17:34 Calcium 10.4 mg/dL (8.6-10.3) H 02/20/19 05:30 Phosphorus 2.5 mg/dL (2.7-4.5) L 02/22/19 04:15 97 mg/L (Less than 10) H 02/22/19 04:15 B-Natriuretic Peptide 512 pg/mL (Less than 100) H 02/13/19 03:02 Trace-intact (Negative) H 02/10/19 23:52 Ur Squamous Epith Cells Moderate per lpf (None-Few) H 02/10/19 23:52 Histoplasma Yeast Ab CF 1:8 (<1:8) H 02/17/19 10:35 Aspergillus Ab (CompFix) 1:16 (<1:8) H 02/17/19 10:35 A. galactomannan Ag POSITIVE (Negative) A 02/17/19 10:35 B-(1,3)-D-Glucan Intrp POSITIVE (Negative) A 02/17/19 10:35 - Microbiology Findings Microbiology Findings: Microbiology, Last 48 Hours 02/11/19 12:10 Sputum Culture - Final Sputum Fungal Elements - Clinical Findings Intake & Output: Intake & Output 02/21/19 02/22/19 02/22/19 23:59 07:59 15:59 Intake Total 160 / 720 160 / 355 195 / 355 Output Total 550 / 556 402 / 402 0 / 402 Balance -390 / 164 -242 / -47 195 / -47 Weight 64.1 kg 63.8 kg Consult Discharge Plan - Plan Referrals: Aren Malik Jr, MD [Primary Care Provider] -
[2019-02-22] MEDS: *HR* LORazepam 0.5 MG TABLET PO PRN (16:41)
[2019-02-22] MEDS: *HR* OxyCODONE Immed Rel 5 MG TABLET PO PRN (22:31)
[2019-02-23] MEDS: Ipratropium/Albuterol Neb 3 ML IH SCH ×4 (03:19→21:00)
[2019-02-23 04:10] LABS: Eosinophils % 0.2 %; Hematocrit 28.8 % (35.3-44.9); Hemoglobin 8.8 g/dL (11.5-15.4); Lymphocytes # 1.3 K/mcL (0.6-4.6); Lymphocytes % 5.8 %; Mean Corpuscular HGB Conc 30.6 g/dL (31.6-35.5); Mean Corpuscular Hemoglobin 29.4 pg (28.0-33.3); Mean Corpuscular Volume 96.3 fL (83.0-100.0); Mean Platelet Volume 10.8 fL (9.4-12.4); Monocytes # 1.6 K/mcL (0.0-1.3); Monocytes % 7.4 %; Neutrophils # 18.8 K/mcL (1.6-8.9); Platelet Count 373 K/mcL (140-400); Red Blood Count 2.99 M/mcL (3.82-4.97); Red Cell Distribution Width 16.1 % (11.5-14.5); Segmented Neutrophils % 85.6 %
[2019-02-23 04:27] LABS: BUN/Creatinine Ratio 72 (6-26); Blood Urea Nitrogen 33 mg/dL (8-23); Calcium 9.5 mg/dL (8.6-10.3); Carbon Dioxide 30 mEq/L (23-29); Chloride 100 mEq/L (98-107); Glucose 109 mg/dL (70-105); Osmolality,Calculated 292 (280-300); Potassium 4.5 mEq/L (3.5-5.1); Sodium 137 mEq/L (136-145); eGFR For African Americans > 60 (> 60); eGFR For Non-African Americans > 60 (> 60)
[2019-02-23] MEDS: *HR* Heparin 5,000 UNIT/ML VIAL SQ SCH (05:55)
[2019-02-23] MEDS: predniSONE 20 MG TABLET PO SCH (07:57)
[2019-02-23] MEDS: Nystatin SUSP 5 ML UD.LIQ PO SCH ×4 (07:57→22:08)
[2019-02-23] MEDS: Piperacillin/Tazobactam 3.375 GM in 0.9 % Sodium Chloride Mini Bag 100 ML IVPB SCH ×2 (07:57→16:03)
[2019-02-23] MEDS: Loratadine 10 MG TABLET PO SCH (07:58)
[2019-02-23] MEDS: *HR* HYDROcodone/Acet 5/325 mg TABLET PO PRN ×2 (07:58→18:50)
[2019-02-23] MEDS: Metoprolol 100 MG TABLET PO SCH (07:58)
[2019-02-23] MEDS: Aspirin Enteric Coated 81 MG Tablet PO SCH (07:58)
[2019-02-23] MEDS: Lactobacillus 1 EACH CAP.SPRINK PO SCH (07:58)
[2019-02-23] MEDS: Furosemide 40 MG TABLET PO SCH (07:58)
--- NOTE | 2019-02-23 08:22 | Internal Med Progress Note ---
Hospitalist Progress Note - Encounter Date of Encounter: 02/23/19 Time of Encounter: 09:40 - Subjective Interval History: awake, daughter at bedside. discussed goals of care and possible routes to obtaining those goals. She is very sob with minimal exertion. Her primary focus is to not be so short of breath. For part of discussion ID SOFYA was present. Pt has hard time deciding if she wants transfer to [facility] for second opinion as recommended by ID and reasonable to pulm as well. After discussion further with her son she has ultimately decided today that she will pursue blood patch today with IR, assess sob therafter. goal is home however if patch fails or sob is not significantly improved she would consider transfer to [facility] vs palliaitve care at that time and her son is in agreement with this plan. She denies fevers, chills, n/v. Noted red sputum overnight. none this morning. now on scds only. - Exam Vitals: Temp Pulse Resp BP Pulse Ox 97.7 F 120 25 123/69 89 02/23/19 07:17 02/23/19 07:17 02/23/19 07:17 02/23/19 07:17 02/23/19 07:17 Exam: gen- alert, awake,appears stated age, chornically ill appearing, fatigued but comfortable cv- reg rate and rhythm, normal s1,s2, no le edema or jvd appreciated lungs- diminished aeration throughout, prolonged exp phase, no crackles or wheezing, diminished right breath sounds with CT in plce abd- soft, non tender, non distended, skin- warm dry no pallor neuro- AAOx3, CN grossly intact - Summary of Assessment and Plan Summary of Assessment and Plan: Nany Peck is a 73 F w hx severe COPD on 5L c/b fibrosis and bronchiectasis, RLL cavitary lesion suspicious for abscess v malignancy, HFpEF, CAD s/p stents, HTN, MVP, anxiety, who on 02/10 p/w progressive SOB, productive cough w sputum color change, and fever, found to have elevated HR and RR, hypoxia, lactate 2.4, and CT showing possible acute infiltrates, concerning for CAP causing sepsis and COPD exacerbation leading to acute on chronic hypoxic respiratory failure. Hospital course c/b acute pneumothorax requiring chest tube placement on 02/14, which was exchanged on 02/18 for larger tube due to increasing PTX and persistent air leak. Pt did undergo CT guided lung biopsy of cavitary l esion on 02/15 with results pending. Persistent air leak and PTX. Underwent blood patch with IR 02/23. Pneumothorax: persistent, Pulm concerned for bronchopulmonary fistula - as d/w Pulm IR blood patch today, chest tube remains in place Pneumonia: ID following, now recommend to continue Zosyn Day 12 RLL Cavitary lung lesion: s/p CT guided lung biopsy 02/15, per Pulm suspicious for abscess but micro no growth and awaiting path. Fungal labs show positive Fungitell (b-D-glucan) which was previously positive, and galactomannan now positive however pt currently on Zosyn and thus possibly false positive, CompFix w Aspergillus ab positive 1:16 and histo weakly positive 1:8 - ID following - path results still pending - fungal blood cultures pending -ID would like repeat non con CT chest once chest tube removed -ID rec is for transfer to [facility] for second opinion which she is declining at this time Sepsis: clinically not septic in appearance, although remains persistently SIRS 2/4 - Leukocytosis: persistently elevated despite 12 days zosyn, neutrophilic predominance, possible fungal infection - Tachycardia: home lopressor 25 bid increased early in hospitalization to 100 bid and pt remains mildly tachycardic, does have PTX although SBP remains good Severe emphysematous COPD: exacerbation improved, continue nebs q6h, home inhalers, and slowly taper prednisone over next 2-3 weeks (decrease pred to 30 on 02/22) Acute on Chronic hypoxic and hypercapneic respiratory failure: home 5L -currently on high flow NC 6-8L -IR intervention as above 02/23, cont to wean as able HFpEF: lasix 40 po daily (home dose is 20-40 daily prn), KCl 20 meq daily Severe protein calorie malnutrition: see nutrition notes CAD: home statin, ASA HTN: lopressor as above Anxiety: home celexa 20 daily GERD: H2B bid PPx: sqh Lines: PIV, chest tube Code: DNRCC-A Dispo: patient requires inpatient eval and management at this time. goal of pt is eventually home w HH and will need referral to [facility] ID - Time Spent with Patient Greater than 35 minutes Plan of Care Discussed with: patient Internal Medicine: Result - Labs CBC & Chem 7: 02/23/19 04:00 02/23/19 04:00 Labs: Short CBC 02/23/19 Range/Units 04:00 WBC 22.0 H (4.3-11.1) K/mcL Hgb 8.8 L (11.5-15.4) g/dL Hct 28.8 L (35.3-44.9) % Plt Count 373 (140-400) K/mcL Neutrophils # 18.8 H (1.6-8.9) K/mcL BMP 02/23/19 04:00 Sodium 137 Potassium 4.5 Chloride 100 Carbon Dioxide 30 H BUN 33 H Creatinine 0.46 L Glucose 109 H Calcium 9.5 - ABG Interpretation ABG results: ABG ABG pH 7.48 pH Units (7.32-7.45) H 02/13/19 23:42 ABG pCO2 44 mmHg (35-45) 02/13/19 23:42 ABG pO2 62 mmHg (85-104) L 02/13/19 23:42 ABG O2 Saturation 93 % (95-98) L 02/13/19 23:42 PT/INR, D-dimer PT 14.9 Seconds (9.4-12.1) H 02/15/19 08:30 967 ng/mLFEU (0-500) H 02/10/19 17:14 - Impressions Impressions Chest X-Ray 02/21/19 07:00 IMPRESSION: Right-sided thoracotomy tube in good position with stable small right apical pneumothorax. Stable consolidative changes seen in the right lung base with a right-sided pleural effusion and atelectatic changes seen at the left lung base. D/ / 02/21/2019 07:42:30 Tony Pinto MD / flako Interpreting Provider: Tony Pinto MD Consult Discharge Plan - Plan Referrals: Aren Malik Jr, MD [Primary Care Provider] -
--- NOTE | 2019-02-23 10:19 | Infectious Disease Progress No ---
ID Progress Note Date of Encounter: 02/23/19 Time of Encounter: 10:17 - Subjective Subjective: Patient seen and examined. No acute events noted overnight. Stat post CT-guided lung biopsy 02/15/19. Status post chest tube exchange 02/18/19. Seen with Dr. Cardona and the patient's daughter. Answered questions re: need for transfer and risks/benefits. The patient states she is willing to transfer because she wants to pursue treatment and further workup. Denies fevers, chills, rigors. Denies chest pain. Reports shortness of breath is pretty close to baseline, but gets worse with exertion. Reports a moist cough with small amount of dark brown/red sputum. Denies vomiting, diarrhea, or constipation. Denies nausea. Reports her stools are a little loose. Denies abdominal pain or urinary complaints. States her appetite is okay. Denies oral thrush or skin rashes. Complains of pain at the chest tube site. - Objective CBC & Chem 7: 02/25/19 03:30 02/24/19 05:43 - Exam Vitals: Temp Pulse Resp BP Pulse Ox 97.7 F 120 25 123/69 89 02/23/19 07:17 02/23/19 07:17 02/23/19 07:17 02/23/19 07:17 02/23/19 07:17 Exam: Head: Atraumatic, normal inspection, normocephalic. Eye: EOMI, PERRLA, no scleral icterus noted. ENT: Mucous membranes moist. No odontogenic infection noted. Neck: Normal inspection, no meningismus. Respiratory: Coarse crackles throughout. Chest tube noted to the right posterior thorax with scant amount of serous sanguinous drainage noted. No crepitus today. Cardiovascular: Regular rate and rhythm, S1 and S2 audible. No murmurs, rubs, or gallops. GI: Soft, nondistended, normal bowel sounds. Extremities: No joint swelling, pedal edema, or tenderness noted. Neurological: Alert, oriented 3, no focal deficits. Psychiatric: normal affect, normal mood. Skin: Dry, intact, warm. Normal color. No rashes. - Assessment and Plan (1) Sepsis Current Visit: No Status: Acute The patient had 3 sepsis criteria on admission. Likely secondary to pneumonia. Improved. WBC remains elevated, likely secondary to steroids. Continues to have some intermittent tachycardia. She has been afebrile. Blood cultures drawn 02/10/19 are negative 2 sets. Peripheral smear is negative for toxic granules or Dohle bodies. Qualifiers: Sepsis type: sepsis due to unspecified organism Qualified Code(s): A41.9 - Sepsis, unspecified organism SNOMED Code(s): 13084778 (2) Leukocytosis Current Visit: Yes Status: Acute Likely reactive secondary to steroids. Clinically improved. Peripheral smear negative for toxic granules or Dohle bodies. Procalcitonin negative. Continue to trend. Qualifiers: Leukocytosis type: unspecified Qualified Code(s): D72.829 - Elevated white blood cell count, unspecified SNOMED Code(s): 241216460, 170027646 (3) Healthcare-associated pneumonia Current Visit: Yes Status: Acute Location: Right base. Causative organism: Unclear. CT of the chest revealed a right basilar infiltrate concerning for aspiration pneumonia versus other. MRSA screen was negative. Strep pneumococcal and legionella urinary antigens were negative. Respiratory infectious panel was negative. Sputum culture is positive for fungal elements. Final ID is pending. Fungitell and Asp. galactomannan positive, however the patient has been on Zosyn which could cause a false-positive Asp. galactomannan. Procalcitonin 0.03. Currently on IV Zosyn (day 12). SNOMED Code(s): 530747287, 754756555 (4) Pneumothorax on right Current Visit: Yes Status: Resolved Chest x-ray completed 02/14/19 revealed a large right-sided pneumothorax. Status post chest tube placement 02/14/19 by the acute care surgery team. Repeat chest x-ray shows a possible trace right apical pneumothorax. Chest x-ray 02/16/19 shows a mild right pneumothorax that is mildly decreased as well as findings consistent with COPD and stable bibasilar consolidations. Repeat chest x-ray 02/17/19 shows resolution of the right-sided pneumothorax and continued bibasilar opacities with new evidence of intra-fissural fluid on the right. Status post chest tube exchange 02/18/19, after which chest tube was clamped and patient developed worsening of PTX. Serial CXRs show improvement, but persistent PTX. IR consulted for possible blood patch today. Management per the pulmonary team. SNOMED Code(s): 907602543 (5) Acute respiratory failure Current Visit: Yes Status: Acute Likely multifactorial: Pneumonia, COPD, pulmonary fibrosis, bronchiectasis, cavitary lung lesion, and pneumothorax. O2 demands remain high. She is currently on nasal cannula at 8LPM. Pulmonology consult and following. Qualifiers: Respiratory failure complication: hypoxia Qualified Code(s): J96.01 - Acute respiratory failure with hypoxia SNOMED Code(s): 46375806 (6) Cavitary lesion of lung Current Visit: No Status: Chronic First seen in 11/11/2018. Extensive workup including for TB, fungal element were all negative. Status post bronchoscopy 11/15/2018 and 12/13/2018. Both were also nonrevealing. Cultures were negative. Fungal cultures and AFB were negative. And flow cytometry were almost negative. Patient was treated with 8 weeks of Augmentin and doxycycline with no improvement whatsoever. High index of suspicion for malignancy. Fungitell and Aspergillus galactomannan positive. Sputum culture positive for fungal elements. Status post CT-guided biopsy 02/15/19. Cultures are NGTD and pathology (including GMS stain) is pending. SNOMED Code(s): 393601240 (7) Pulmonary fibrosis Current Visit: Yes Status: Chronic SNOMED Code(s): 65894499 (8) CAD (coronary artery disease) Current Visit: Yes Status: Chronic Qualifiers: Coronary Disease-Associated Artery/Lesion type: [place] artery [place] vs. transplanted heart: unspecified whether [place] or transplanted heart Associated angina: without angina Qualified Code(s): I25.10 - Atherosclerotic heart disease of [place] coronary artery without angina pectoris SNOMED Code(s): 35593081 (9) Hyperlipidemia Current Visit: No Status: Acute Qualifiers: Hyperlipidemia type: Mixed hyperlipidemia SNOMED Code(s): 76915471 - Recommendations Recommendations: Continue to trend CBC with differential. Await biopsy results. Chest tube management per the pulmonology team. O2 management per the pulmonology team. Consider transfer to tertiary care center for second opinion. Discussed with the patient, her daughter, and the primary team. Recommend repeat CT of the chest after chest tube removed and blood patch pl aced. Continue Zosyn 3.375 g IV every 8 hours. (Day 12). Duration of treatment depends on the clinical picture. Monitor renal function and dose adjust antibiotics. Consult Discharge Plan - Plan Referrals: Aren Malik Jr, MD [Primary Care Provider] - - Attending Attestation I have personally performed a face to face evaluation on this patient. I have reviewed and agree with the care plan. History and Exam by me shows: Assessment and plan: 1.Sepsis 2.Leukocytosis 3.Healthcare associated pneumonia 4.Cavitary lung lesion status post biopsy 02/15/2019 5.Pulmonary fibrosis 6.Chronic respiratory failure Recommendations: I discussed again with pulmonary and since the patient is being transferred and really we do not know what else to do, we decided to start the voriconazole maybe makes a difference. Today the patient that we need to treat for at least 8 weeks. We will repeat the CAT scan. Prognosis is guarded at best. Review drug drug interaction. We will continue with the SSRI even though there might be some drug drug interaction but we will stop the statin. Discussed with pharmacy
--- NOTE | 2019-02-23 14:39 | IR Procedure Note ---
Date of procedure: 02/23/19 Consent Obtained: Written consent Timeout: Correct patient and procedure verified, Correct site verified, Time out performed, Skin prep completed Was there an electrician station assistant present: No Estimated blood loss (cc): 0 Complications: None; Tolerated procedure well Indications: Persistent air leak on the right, unknown origin. Indwelling locking loop chest tube. Procedure Performed: Blood patch Site/Technique: Right chest. Pts blood drawn from peripheral IV. Aliquots of gelfoam slurry and blood placed in through chest tube. Total of 80ml of blood used. Results/Findings (any specimens removed): Injected blood and gelfoam without difficulty. Tolerated well. Cleared chest tube and pleur evac line with injections of air at end of procedure. Post Procedure Treatment Plan: Monitoring in pts room. Chest tube back to pre procedure settings. Specimen: na
--- NOTE | 2019-02-23 15:12 | Pulmonology Progress Note ---
Date of Encounter: 02/23/19 Time of Encounter: 11:00 Assessment and Plan (1) Acute and chronic respiratory failure with hypoxia Current Visit: No Status: Acute To continue O2 supplementation as oxygenation and ventilation is stable. Patient has right sided pneumothorax with chest tube drainage on suction will hold off suction put water seal will repeat CXR 12/23 continue O2 supplementation oxygenation and ventilation is stable right- sided pneumothorax with chest tube drainage with water seal patient still has intermittent leak is almost to 48 hours of intermittent leak we will plan for blood patch tomorrow with interventional radiology 12/24 complicated by COPD possible invasive fungal disease , secondary pneumothorax supported by chest tube with blood patch today (2) Pneumothorax on right Current Visit: Yes Status: Acute I repeated the chest x-ray which showed near complete resolution of right-sided pneumothorax to continue chest tube with suction spoke with we will go ahead with CT-guided biopsy tomorrow morning with possible chest tube replacement if needed. To keep her nothing by mouth after midnight the plan of care was discussed with her registered nurse. Patient verbalized understanding the plan of care. 02/21 over the weekend had persistent air leak thinking off for possible blood patch the patient will need had intermittently air leaks Will reassess with the chest x-ray in the morning 02/22 can is still has intermittent leak with some tiny apical pneumothorax. Patient is willing to try blood patch we will speak with interventional radiologist tomorrow. 02/23 patient had a blood patch with chest tube is no air leak noted after the blood patch we will get a chest x-ray in the morning most likely will remove the chest tube after 24-hour stability (3) COPD (chronic obstructive pulmonary disease) Current Visit: Yes Status: Chronic Continue the current regimen of bronchodilators Qualifiers: COPD type: chronic bronchitis Chronic bronchitis type: unspecified Qualified Code(s): J42 - Unspecified chronic bronchitis (4) Cavitary lesion of lung Current Visit: No Status: Chronic Infectious versus inflammatory versus malignancy patient had 2 bronchoscopy which came out negative without much diagnosis counseled about CT-guided biopsy patient got convinced that she is ready for CT-guided biopsy and she is aware of that in case the repeat pneumothorax And she is already has a chest tube in place. I spoke with the the patient and her family everybody verbalized understanding. 02/[address]-guided lung biopsy patient's sputum had some fungal elements in the sputum had serum galactomannan positive, looks like patient on Zosyn can have some false positive galactomannan with the current data with no growth in the microbiology of the tissue this cavity might have some fungal elements in the cavity but there is no convincing evidence of invasive infection like aspergillosis will hold off any antifungal discuss with infectious disease might need second opinion. Discussed with patient . Because of severe bullous disease even with VATS and lung biopsy there will be high chance of alveoli- pleural fistula . 02/22 infectious disease recommended transfer to tertiary care center for second opinion agree with infectious disease to hold off any azoles for her cavitary lesion still pathology pending will call pathology and discuss about the pathology results. 02/23 patient refused a second opinion regarding infectious disease believed to infectious disease regarding treating with azole therapy . 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 Patient was agreeable for the lung biopsy as she is already has chest tube catheter,spoke with interventional radiology Since his pneumothorax is stable patient is scheduled for her right lower lobe CT-guided lung biopsy. Patient says her shortness of breath is lot better after the chest tube patient has her appetite back wants to eat. Much cough or sputum production. No fever or chills or any other constitutional symptoms. has some intermittent leak on the right-sided chest tube patient symptoms says she is slowly back to her baseline oxygen supplementation and is slowly back to baseline patient denies much chest pain but while moving around the insertion site patient denies any fever or chills. 02/22 patient is symptomatically lot better denies much chest pain chest tightness patient still has some intermittent air leak through the chest tube. Patient is on waterseal drainage with tiny apical pneumothorax in the repeat chest x-ray. 02/23 patient had the blood patch to her chest tube patient is feeling a lot better her breathing is lot better patient denies any fever or chills. Objective PUL Vital signs: Last Vital Signs Temp 98.0 F 02/23/19 14:50 Pulse 102 02/23/19 14:50 Resp 22 02/23/19 14:50 BP 110/72 02/23/19 14:50 Pulse Ox 100 02/23/19 14:50 General appearance: no acute distress Effort: mildly labored Auscultation: bilateral: diminished breath sounds, wheezes (Minimal scattered wheezes) Cardiovascular: regular rate and rhythm Gastrointestinal: normoactive bowel sounds Extremities: no edema normal mental status, non-focal exam Results - Laboratory Findings CBC and BMP: 02/23/19 04:00 02/23/19 04:00 ABG ABG pH 7.48 pH Units (7.32-7.45) H 02/13/19 23:42 ABG pCO2 44 mmHg (35-45) 02/13/19 23:42 ABG pO2 62 mmHg (85-104) L 02/13/19 23:42 ABG O2 Saturation 93 % (95-98) L 02/13/19 23:42 PT/INR, D-dimer PT 14.9 Seconds (9.4-12.1) H 02/15/19 08:30 967 ng/mLFEU (0-500) H 02/10/19 17:14 Abnormal lab findings: Abnormal lab results WBC 22.0 K/mcL (4.3-11.1) H 02/23/19 04:00 RBC 2.99 M/mcL (3.82-4.97) L 02/23/19 04:00 Hgb 8.8 g/dL (11.5-15.4) L 02/23/19 04:00 Hct 28.8 % (35.3-44.9) L 02/23/19 04:00 MCHC 30.6 g/dL (31.6-35.5) L 02/23/19 04:00 RDW 16.1 % (11.5-14.5) H 02/23/19 04:00 Plt Count 405 K/mcL (140-400) H 02/22/19 04:15 18.8 K/mcL (1.6-8.9) H 02/23/19 04:00 0.4 K/mcL (0.6-4.6) L 02/13/19 03:02 1.6 K/mcL (0.0-1.3) H 02/23/19 04:00 Slight increase (Normal) H 02/18/19 12:35 ESR 118 mm/hr (0-15) H 02/22/19 04:15 PT 14.9 Seconds (9.4-12.1) H 02/15/19 08:30 967 ng/mLFEU (0-500) H 02/10/19 17:14 ABG pH 7.48 pH Units (7.32-7.45) H 02/13/19 23:42 ABG pO2 62 mmHg (85-104) L 02/13/19 23:42 ABG HCO3 33 mEq/L (21-27) H 02/13/19 23:42 ABG Total CO2 34 mEq/L (20-26) H 02/13/19 23:42 ABG O2 Saturation 93 % (95-98) L 02/13/19 23:42 ABG Base Excess 8 mEq/L (-2 to 3) H 02/13/19 23:42 Sodium 131 mEq/L (136-145) L 02/16/19 04:30 Potassium 5.3 mEq/L (3.5-5.1) H 02/20/19 05:30 Chloride 97 mEq/L (98-107) L 02/17/19 06:10 Carbon Dioxide 30 mEq/L (23-29) H 02/23/19 04:00 BUN 33 mg/dL (8-23) H 02/23/19 04:00 0.46 mg/dL (0.60-1.20) L 02/23/19 04:00 72 (6-26) H 02/23/19 04:00 Glucose 109 mg/dL (70-105) H 02/23/19 04:00 POC Glucose 165 mg/dL (70-99) H 02/23/19 12:06 306 (280-300) H 02/15/19 04:20 Lactic Acid 2.4 mmol/L (0.5-2.2) H 02/10/19 17:34 Calcium 10.4 mg/dL (8.6-10.3) H 02/20/19 05:30 Phosphorus 2.5 mg/dL (2.7-4.5) L 02/22/19 04:15 97 mg/L (Less than 10) H 02/22/19 04:15 B-Natriuretic Peptide 512 pg/mL (Less than 100) H 02/13/19 03:02 Trace-intact (Negative) H 02/10/19 23:52 Ur Squamous Epith Cells Moderate per lpf (None-Few) H 02/10/19 23:52 Histoplasma Yeast Ab CF 1:8 (<1:8) H 02/17/19 10:35 Aspergillus Ab (CompFix) 1:16 (<1:8) H 02/17/19 10:35 A. galactomannan Ag POSITIVE (Negative) A 02/17/19 10:35 B-(1,3)-D-Glucan Intrp POSITIVE (Negative) A 02/17/19 10:35 - Microbiology Findings Microbiology Findings: Microbiology, Last 48 Hours 02/11/19 12:10 Sputum Culture - Final Sputum Fungal Elements - Clinical Findings Intake & Output: Intake & Output 02/22/19 02/23/19 02/23/19 23:59 07:59 15:59 Intake Total 660 / 1015 280 / 380 100 / 380 Output Total 400 / 802 600 / 600 0 / 600 Balance 260 / 213 -320 / -220 100 / -220 Weight 65 kg Consult Discharge Plan - Plan Referrals: Aren Malik Jr, MD [Primary Care Provider] -
[2019-02-24] MEDS: Melatonin 3 MG TABLET PO PRN ×2 (00:45→20:24)
[2019-02-24] MEDS: *HR* HYDROcodone/Acet 5/325 mg TABLET PO PRN ×4 (00:45→20:24)
[2019-02-24] MEDS: Piperacillin/Tazobactam 3.375 GM in 0.9 % Sodium Chloride Mini Bag 100 ML IVPB SCH ×3 (00:46→18:27)
[2019-02-24] MEDS: Ipratropium/Albuterol Neb 3 ML IH SCH (03:37)
[2019-02-24 05:58] LABS: Basophils % 0.1 %; Eosinophils # 0.1 K/mcL (0.0-0.6); Eosinophils % 0.4 %; Hematocrit 29.1 % (35.3-44.9); Hemoglobin 8.6 g/dL (11.5-15.4); Immature Granulocytes % 1.1 % (0-4); Lymphocytes # 1.3 K/mcL (0.6-4.6); Lymphocytes % 7.1 %; Mean Corpuscular HGB Conc 29.6 g/dL (31.6-35.5); Mean Corpuscular Hemoglobin 28.8 pg (28.0-33.3); Mean Corpuscular Volume 97.3 fL (83.0-100.0); Mean Platelet Volume 10.6 fL (9.4-12.4); Monocytes # 1.6 K/mcL (0.0-1.3); Monocytes % 8.4 %; Neutrophils # 15.5 K/mcL (1.6-8.9); Platelet Count 367 K/mcL (140-400); Red Blood Count 2.99 M/mcL (3.82-4.97); Red Cell Distribution Width 16.3 % (11.5-14.5); Segmented Neutrophils % 82.9 %; White Blood Count 18.6 K/mcL (4.3-11.1)
[2019-02-24 06:43] LABS: BUN/Creatinine Ratio 46 (6-26); Blood Urea Nitrogen 27 mg/dL (8-23); Calcium 9.7 mg/dL (8.6-10.3); Carbon Dioxide 29 mEq/L (23-29); Chloride 102 mEq/L (98-107); Glucose 135 mg/dL (70-105); Magnesium 1.8 mg/dL (1.6-2.6); Osmolality,Calculated 295 (280-300); Potassium 4.4 mEq/L (3.5-5.1); Sodium 139 mEq/L (136-145); eGFR For African Americans > 60 (> 60); eGFR For Non-African Americans > 60 (> 60)
--- NOTE | 2019-02-24 06:46 | Pulmonology Progress Note ---
Date of Encounter: 02/24/19 Time of Encounter: 06:46 Assessment and Plan (1) Pneumothorax Current Visit: Yes Status: Acute This x-ray performed today showed reexpansion without evidence of pneumothorax there is no significant air leak on examination however after clamp trial patient had reaccumulation of pneumothorax chest tube cannot be removed today we will reassess tomorrow Qualifiers: Encounter type: subsequent encounter Qualified Code(s): S27.0XXD - Traumatic pneumothorax, subsequent encounter (2) Acute exacerbation of chronic obstructive airways disease Current Visit: Yes Status: Acute cont bronchodilators and can taper to prednisone for prolonged taper or 3 weeks. Pulm f/u (3) Cavitary lesion of lung Current Visit: No Status: Chronic s/p CT guided biopsy Most likely lung abscess but malignancy cannot be fully excluded histo and micro-from the pathology pending Appreciated infectious disease consultation - continue antibiotics Subjective Principal diagnosis: Dyspnea Interval history: No significant change overnight she still complaining of pain at the chest tube insertion site [place] any hemoptysis Objective PUL Vital signs: Last Vital Signs Temp 98 F 02/24/19 05:54 Pulse 119 02/24/19 05:54 Resp 22 02/24/19 05:54 BP 125/78 02/24/19 05:54 Pulse Ox 91 02/24/19 05:54 General appearance: no acute distress Eyes: nonicteric Effort: mildly labored Auscultation: right: diminished breath sounds, bilateral: rhonchi Cardiovascular: regular rate and rhythm Gastrointestinal: normoactive bowel sounds Integumentary: normal Extremities: edema (Trace bilateral lower extremity edema noted) Musculoskeletal: no deformities normal mental status, non-focal exam, pupils equal and round mood appropriate Results - Laboratory Findings CBC and BMP: 02/24/19 05:43 02/24/19 05:43 ABG ABG pH 7.48 pH Units (7.32-7.45) H 02/13/19 23:42 ABG pCO2 44 mmHg (35-45) 02/13/19 23:42 ABG pO2 62 mmHg (85-104) L 02/13/19 23:42 ABG O2 Saturation 93 % (95-98) L 02/13/19 23:42 PT/INR, D-dimer PT 14.9 Seconds (9.4-12.1) H 02/15/19 08:30 967 ng/mLFEU (0-500) H 02/10/19 17:14 Abnormal lab findings: Abnormal lab results WBC 18.6 K/mcL (4.3-11.1) H 02/24/19 05:43 RBC 2.99 M/mcL (3.82-4.97) L 02/24/19 05:43 Hgb 8.6 g/dL (11.5-15.4) L 02/24/19 05:43 Hct 29.1 % (35.3-44.9) L 02/24/19 05:43 MCHC 29.6 g/dL (31.6-35.5) L 02/24/19 05:43 RDW 16.3 % (11.5-14.5) H 02/24/19 05:43 Plt Count 405 K/mcL (140-400) H 02/22/19 04:15 15.5 K/mcL (1.6-8.9) H 02/24/19 05:43 0.4 K/mcL (0.6-4.6) L 02/13/19 03:02 1.6 K/mcL (0.0-1.3) H 02/24/19 05:43 Slight increase (Normal) H 02/18/19 12:35 ESR 118 mm/hr (0-15) H 02/22/19 04:15 PT 14.9 Seconds (9.4-12.1) H 02/15/19 08:30 967 ng/mLFEU (0-500) H 02/10/19 17:14 ABG pH 7.48 pH Units (7.32-7.45) H 02/13/19 23:42 ABG pO2 62 mmHg (85-104) L 02/13/19 23:42 ABG HCO3 33 mEq/L (21-27) H 02/13/19 23:42 ABG Total CO2 34 mEq/L (20-26) H 02/13/19 23:42 ABG O2 Saturation 93 % (95-98) L 02/13/19 23:42 ABG Base Excess 8 mEq/L (-2 to 3) H 02/13/19 23:42 Sodium 131 mEq/L (136-145) L 02/16/19 04:30 Potassium 5.3 mEq/L (3.5-5.1) H 02/20/19 05:30 Chloride 97 mEq/L (98-107) L 02/17/19 06:10 Carbon Dioxide 30 mEq/L (23-29) H 02/23/19 04:00 BUN 27 mg/dL (8-23) H 02/24/19 05:43 0.59 mg/dL (0.60-1.20) L 02/24/19 05:43 46 (6-26) H 02/24/19 05:43 Glucose 135 mg/dL (70-105) H 02/24/19 05:43 POC Glucose 165 mg/dL (70-99) H 02/23/19 12:06 306 (280-300) H 02/15/19 04:20 Lactic Acid 2.4 mmol/L (0.5-2.2) H 02/10/19 17:34 Calcium 10.4 mg/dL (8.6-10.3) H 02/20/19 05:30 Phosphorus 2.5 mg/dL (2.7-4.5) L 02/22/19 04:15 97 mg/L (Less than 10) H 02/22/19 04:15 B-Natriuretic Peptide 512 pg/mL (Less than 100) H 02/13/19 03:02 Trace-intact (Negative) H 02/10/19 23:52 Ur Squamous Epith Cells Moderate per lpf (None-Few) H 02/10/19 23:52 Histoplasma Yeast Ab CF 1:8 (<1:8) H 02/17/19 10:35 Aspergillus Ab (CompFix) 1:16 (<1:8) H 02/17/19 10:35 A. galactomannan Ag POSITIVE (Negative) A 02/17/19 10:35 B-(1,3)-D-Glucan Intrp POSITIVE (Negative) A 02/17/19 10:35 - Clinical Findings Intake & Output: Intake & Output 02/23/19 02/23/19 02/24/19 15:59 23:59 07:59 Intake Total 100 / 660 280 / 660 60 / 60 Output Total 0 / 1050 450 / 1050 200 / 200 Balance 100 / -390 -170 / -390 -140 / -140 Weight 65 kg Consult Discharge Plan - Plan Referrals: Aren Malik Jr, MD [Primary Care Provider] -
[2019-02-24] MEDS ORDERED: Ipratropium Neb 0.5 MG NEBULIZER IH PRN (07:38)
--- NOTE | 2019-02-24 08:01 | Internal Med Progress Note ---
Hospitalist Progress Note - Encounter Date of Encounter: 02/24/19 Time of Encounter: 08:50 - Subjective Interval History: awake, no family at bedside. She is eating brekfast. remains sob but states " i always will be. i have copd". She notes that since procedure yesterday sob is improved from previous. she also has improved energy today. she is having pain at chest tube site but denies chest pain. sinus tach on tele at bedside but denies cp, pressure or palpitations. encouraged to take prn pain meds as needed. denies fevers or chills. Cont to have red colored psutum enocuraged scds be in place at all times as is off heparin sq and pt aware - Exam Vitals: Temp Pulse Resp BP Pulse Ox 98.1 F 114 17 132/70 96 02/24/19 07:39 02/24/19 07:39 02/24/19 07:39 02/24/19 07:39 02/24/19 07:39 Exam: gen- alert, awake,appears stated age, chornically ill appearing, nad cv- tachy rate 110s and reg rhythm, normal s1,s2, no le edema lungs- diminished aeration throughout rigth posterior hernandez, prolonged exp phase, no crackles or wheezing, right sided chest tube in place skin- warm dry no pallor neuro- AAOx3, CN grossly intact - Assessment and Plan (1) Acute and chronic respiratory failure with hypoxia Current Visit: No Status: Acute (2) Pneumothorax on right Current Visit: Yes Status: Resolved (3) Acute exacerbation of chronic obstructive airways disease Current Visit: Yes Status: Acute (4) Heart failure with preserved ejection fraction Current Visit: Yes Status: Chronic (5) Severe protein-calorie malnutrition Current Visit: Yes Status: Chronic (6) Lesion of lung Current Visit: Yes Status: Chronic (7) Sinus tachycardia Current Visit: Yes Status: Acute (8) Cavitary pneumonia Current Visit: No Status: Acute (9) Anemia Current Visit: Yes Status: Chronic - Summary of Assessment and Plan Summary of Assessment and Plan: Nany Peck is a 73 F w hx severe COPD on 5L c/b fibrosis and bronchiectasis, RLL cavitary lesion suspicious for abscess v malignancy, HFpEF, CAD s/p stents, HTN, MVP, anxiety, who on 02/10 p/w progressive SOB, productive cough w sputum color change, and fever, found to have elevated HR and RR, hypoxia, lactate 2.4, and CT showing possible acute infiltrates, concerning for CAP causing sepsis and COPD exacerbation leading to acute on chronic hypoxic respiratory failure. Hospital course c/b acute pneumothorax requiring chest tube placement on 02/14, which was exchanged on 02/18 for larger tube due to increasing PTX and persistent air leak. Pt did undergo CT guided lung biopsy of cavitary lesion on 02/15 with results pending. Persistent air leak and PTX. Underwent blood patch with IR 02/23. Pneumothorax: resolved on CXR 02/23 s/p blood patch Pulm concerned for bronchopulmonary fistula -Pulm managing -possible removal of chest tube in next 24 h Suspected Pneumonia, organism unknown RLL Cavitary lung lesion: s/p CT guided lung biopsy 02/15, per Pulm suspicious for abscess but micro no growth and awaiting path. Fungal labs show positive Fungitell (b-D-glucan) which was previously positive, and galactomannan now positive however pt currently on Zosyn and thus possibly false positive, CompFix w Aspergillus ab positive 1:16 and histo weakly positive 1:8 - ID following, cont zosyn - path results still pending - fungal blood cultures pending -ID would like repeat non con CT chest once chest tube removed -ID rec is for transfer to [facility] for second opinion which she is declining at this time Sepsis: clinically not septic in appearance, although remains persistently SIRS 2/4 - Leukocytosis: persistently elevated, now down trending, neutrophilic predominance, possible fungal infection - Tachycardia: home lopressor 25 bid increased early in hospitalization to 100 bid and pt remains mildly tachycardic- nebs changed to xopenex, having pain with chest tube, prn pain control Severe emphysematous COPD: exacerbation improved, continue nebs q6h, home inhalers, and slowly taper prednisone over next 2-3 weeks (decrease pred to 30 on 02/22) Acute on Chronic hypoxic and hypercapneic respiratory failure: home 5L -currently on high flow NC -IR intervention as above 02/23, cont to wean as able HFpEF: lasix 40 po daily (home dose is 20-40 daily prn), KCl 20 meq daily Severe protein calorie malnutrition: see nutrition notes CAD: home statin, ASA HTN: lopressor as above Anxiety: home celexa 20 daily GERD: H2B bid Chronic Anemia- baseline in recent months 8s-10s, sub q hep held, cont to monitor PPx: scds given red colored sputum Lines: PIV, chest tube Code: DNRCC-A Dispo: patient requires inpatient eval and management at this time. goal of pt is eventually home w HH and will need referral to [facility] ID Plan of Care Discussed with: patient Internal Medicine: Result - Labs CBC & Chem 7: 02/24/19 05:43 02/24/19 05:43 Labs: Short CBC 02/24/19 Range/Units 05:43 WBC 18.6 H (4.3-11.1) K/mcL Hgb 8.6 L (11.5-15.4) g/dL Hct 29.1 L (35.3-44.9) % Plt Count 367 (140-400) K/mcL Neutrophils # 15.5 H (1.6-8.9) K/mcL BMP 02/24/19 05:43 Sodium 139 Potassium 4.4 Chloride 102 Carbon Dioxide 29 BUN 27 H Creatinine 0.59 L Glucose 135 H Calcium 9.7 - ABG Interpretation ABG results: ABG ABG pH 7.48 pH Units (7.32-7.45) H 02/13/19 23:42 ABG pCO2 44 mmHg (35-45) 02/13/19 23:42 ABG pO2 62 mmHg (85-104) L 02/13/19 23:42 ABG O2 Saturation 93 % (95-98) L 02/13/19 23:42 PT/INR, D-dimer PT 14.9 Seconds (9.4-12.1) H 02/15/19 08:30 967 ng/mLFEU (0-500) H 02/10/19 17:14 - Impressions Impressions Chest X-Ray 02/20/19 07:00 IMPRESSION: Right apical chest tube with slight decrease in size of right lateral pneumothorax. Otherwise stable examination right pleural effusion/hemothorax, right rib fractures and right chest wall subcutaneous emphysema. Stable mild pulmonary edema. D/ / 02/20/2019 09:14:00 Ronald Shannon MD / santiago Interpreting Provider: Ronald Shannon MD Chest X-Ray 02/21/19 07:00 IMPRESSION: Right-sided thoracotomy tube in good position with stable small right apical pneumothorax. Stable consolidative changes seen in the right lung base with a right-sided pleural effusion and atelectatic changes seen at the left lung base. D/ / 02/21/2019 07:42:30 Tony Pinto MD / flako Interpreting Provider: Tony Pinto MD Chest X-Ray 02/23/19 14:35 IMPRESSION: 1. No right pneumothorax seen. 2. Stable chest x-ray bilateral lower lobe infiltrates. D/ / Jason Lee MD / Jason Lee MD Interpreting Provider: Jason Lee MD Chest X-Ray 02/23/19 21:40 IMPRESSION: Stable right pleural pigtail catheter positioning without apparent residual pneumothorax. Remainder of the exam is unchanged. D/ / William Monte / William Monte Interpreting Provider: William Monte Consult Discharge Plan - Plan Referrals: Aren Malik Jr, MD [Primary Care Provider] - (4) Heart failure with preserved ejection fraction Qualifiers: Heart failure chronicity: chronic Qualified Code(s): I50.32 - Chronic diastolic (congestive) heart failure (9) Anemia Qualifiers: Anemia type: unspecified type Qualified Code(s): D64.9 - Anemia, unspecified
--- NOTE | 2019-02-24 09:13 | Event Note ---
Date of Encounter: 02/23/19 Time of Encounter: 15:00 Patient was seen and examined, she stated to be feeling much better. Daughter at the bedside. Blood patch procedure was done today, and pt is hoping for chest tube to be removed today so she can return home soon. MPOA papers were filled, copies placed in chart and given to pt and family. Patient's goals remain to return home once stable, information about hospice was shared, but patient is not resdy to consider. Remain DNRCCA and DNI. Thank you for allowing us to participate in the care of this patient, Palliative care will sign off.
[2019-02-24] MEDS: *HR* OxyCODONE Immed Rel 5 MG TABLET PO PRN ×2 (09:57→18:26)
[2019-02-24] MEDS: Aspirin Enteric Coated 81 MG Tablet PO SCH (09:58)
[2019-02-24] MEDS: Lactobacillus 1 EACH CAP.SPRINK PO SCH (09:58)
[2019-02-24] MEDS: Loratadine 10 MG TABLET PO SCH (09:59)
[2019-02-24] MEDS: Furosemide 40 MG TABLET PO SCH (09:59)
[2019-02-24] MEDS: predniSONE 20 MG TABLET PO SCH (09:59)
[2019-02-24] MEDS: Nystatin SUSP 5 ML UD.LIQ PO SCH ×4 (10:00→20:24)
[2019-02-24] MEDS: Levalbuterol Neb 0.63 MG/3 ML IH SCH ×3 (10:59→22:35)
--- NOTE | 2019-02-24 11:18 | Infectious Disease Progress No ---
ID Progress Note Date of Encounter: 02/24/19 Time of Encounter: 09:30 - Subjective Subjective: Patient seen and examined. No acute events noted overnight. Stat post CT-guided lung biopsy 02/15/19. Path and GMS stains still pending. Status post chest tube exchange 02/18/19. Status post blood patch placement 02/23/19. During my exam today, the patient states that she thinks her breathing is a little bit better today, however, she is seen getting back to the chair from the bedside commode and appears severely dyspneic with exertion. She denies fevers, chills, or rigors. Denies chest pain. Reports pain at the site of the chest tube. Reports a cough productive of dark brown sputum. Denies nausea, vomiting, diarrhea, or constipation. States her stools are a little bit loose. Denies abdominal pain or urinary complaints. States her appetite is okay. Denies oral thrush or skin rashes. - Objective CBC & Chem 7: 02/24/19 05:43 02/24/19 05:43 - Exam Vitals: Temp Pulse Resp BP Pulse Ox 98.1 F 114 17 132/70 96 02/24/19 07:39 02/24/19 07:39 02/24/19 07:39 02/24/19 07:39 02/24/19 07:39 Exam: Head: Atraumatic, normal inspection, normocephalic. Eye: EOMI, PERRLA, no scleral icterus noted. ENT: Mucous membranes moist. No odontogenic infection noted. Neck: Normal inspection, no meningismus. Respiratory: Coarse crackles throughout. Chest tube noted to the right posterior thorax with scant amount of serous sanguinous drainage noted. No crepitus today. SMAC on exertion. Speaking in 1 word sentences. Cardiovascular: Regular rate, cardiac. S1 and S2 audible. No murmurs, rubs, or gallops. GI: Soft, nondistended, normal bowel sounds. Extremities: No joint swelling, pedal edema, or tenderness noted. Neurological: Alert, oriented 3, no focal deficits. Psychiatric: normal affect, normal mood. Skin: Dry, intact, warm. Normal color. No rashes. - Assessment and Plan (1) Sepsis Current Visit: No Status: Acute The patient had 3 sepsis criteria on admission. Likely secondary to pneumonia. Improved. WBC remains elevated, likely secondary to steroids. Continues to have some intermittent tachycardia. She has been afebrile. Blood cultures drawn 02/10/19 are negative 2 sets. Peripheral smear is negative for toxic granules or Dohle bodies. Qualifiers: Sepsis type: sepsis due to unspecified organism Qualified Code(s): A41.9 - Sepsis, unspecified organism SNOMED Code(s): 87809768 (2) Leukocytosis Current Visit: Yes Status: Acute Likely reactive secondary to steroids. Clinically improved. Peripheral smear negative for toxic granules or Dohle bodies. Procalcitonin negative. Continue to trend. Qualifiers: Leukocytosis type: unspecified Qualified Code(s): D72.829 - Elevated white blood cell count, unspecified SNOMED Code(s): 369153579, 772919281 (3) Healthcare-associated pneumonia Current Visit: Yes Status: Acute Location: Right base. Causative organism: Unclear. CT of the chest revealed a right basilar infiltrate concerning for aspiration pneumonia versus other. MRSA screen was negative. Strep pneumococcal and legionella urinary antigens were negative. Respiratory infectious panel was negative. Sputum culture is positive for fungal elements. Final ID is pending. Fungitell and Asp. galactomannan positive, however the patient has been on Zosyn which could cause a false-positive Asp. galactomannan. Procalcitonin 0.03. Currently on IV Zosyn (day 13). SNOMED Code(s): 482972026, 245741954 (4) Pneumothorax on right Current Visit: Yes Status: Acute Chest x-ray completed 02/14/19 revealed a large right-sided pneumothorax. Status post chest tube placement 02/14/19 by the acute care surgery team. Repeat chest x-ray shows a possible trace right apical pneumothorax. Chest x-ray 02/16/19 shows a mild right pneumothorax that is mildly decreased as well as findings consistent with COPD and stable bibasilar consolidations. Repeat chest x-ray 02/17/19 shows resolution of the right-sided pneumothorax and continued bibasilar opacities with new evidence of intra-fissural fluid on the right. Status post chest tube exchange 02/18/19, after which chest tube was clamped and patient developed worsening of PTX. Serial CXRs showed improvement, but persistent PTX. Status post blood patch placement 02/23/19 by interventional radiology. Repeat chest x-ray this morning is negative for pneumothorax. Management per the pulmonary team. SNOMED Code(s): 708819082 (5) Acute respiratory failure Current Visit: Yes Status: Acute Likely multifactorial: Pneumonia, COPD, pulmonary fibrosis, bronchiectasis, cavitary lung lesion, and pneumothorax. O2 demands remain high. She is currently on nasal cannula at 8LPM. Still severely dyspneic with exertion. Pulmonology consult and following. Qualifiers: Respiratory failure complication: hypoxia Qualified Code(s): J96.01 - Acute respiratory failure with hypoxia SNOMED Code(s): 84611965 (6) Cavitary lesion of lung Current Visit: No Status: Chronic First seen in 11/11/2018. Extensive workup including for TB, fungal element were all negative. Status post bronchoscopy 11/15/2018 and 12/13/2018. Both were also nonrevealing. Cultures were negative. Fungal cultures and AFB were negative. And flow cytometry were almost negative. Patient was treated with 8 weeks of Augmentin and doxycycline with no improvement whatsoever. High index of suspicion for malignancy. Fungitell and Aspergillus galactomannan positive. Sputum culture positive for fungal elements. Status post CT-guided biopsy 02/15/19. Cultures are NGTD and pathology (in cluding GMS stain) is pending. I called and spoke with the pathology lab he states we may have results of the first of the week. The patient has declined transfer for a second opinion. She states she wants to see if the blood patch helps and she can get the chest tube out. Given that we are still waiting for the pathology results and the patient really is not much better, we will start empiric voriconazole 2 week get the GMS stain and pathology back. SNOMED Code(s): 165920271 (7) Pulmonary fibrosis Current Visit: Yes Status: Chronic SNOMED Code(s): 91141270 (8) CAD (coronary artery disease) Current Visit: Yes Status: Chronic Qualifiers: Coronary Disease-Associated Artery/Lesion type: ute artery [place] vs. transplanted heart: unspecified whether ute or transplanted heart Associated angina: without angina Qualified Code(s): I25.10 - Atherosclerotic heart disease of ute coronary artery without angina pectoris SNOMED Code(s): 47913323 (9) Hyperlipidemia Current Visit: No Status: Acute Qualifiers: Hyperlipidemia type: Mixed hyperlipidemia SNOMED Code(s): 34929470 - Recommendations Recommendations: Check baseline LFTs. Continue to trend CBC with differential. Await biopsy results. Chest tube management per the pulmonology team. O2 management per the pulmonology team. Consider transfer to [facility] for second opinion. Discussed with the patient, her daughter, and the primary team. Patient declined. Recommend repeat CT of the chest after chest tube removed and blood patch placed. Continue Zosyn 3.375 g IV every 8 hours. (Day 13). Start Voriconazole. Will ask pharmacy to assist with dosing. Stop lovastatin while on voriconazole. Will check with pharmacy to make sure there are no other drug-drug interactions. Duration of treatment depends on the clinical picture. Monitor renal function and dose adjust antibiotics. Consult Discharge Plan - Plan Referrals: Aren Malik Jr, MD [Primary Care Provider] -
[2019-02-24] MEDS: Magnesium Oxide 400 MG TABLET PO SCH (13:03)
[2019-02-24 18:42] LABS: Alanine Aminotransferase 19 Units/L (7-52); Albumin 2.7 g/dL (3.5-5.7); Albumin/Globulin Ratio 0.8 (1.1-2.2); Alkaline Phosphatase 81 Units/L (34-104); Aspartate Amino Transferase 19 Units/L (13-39); Bilirubin,Direct 0.1 mg/dL (0.0-0.2); Bilirubin,Indirect 0.3 mg/dL (0.0-1.2); Bilirubin,Total 0.4 mg/dL (0.3-1.0); Globulin 3.2 g/dL (2.4-3.5); Total Protein 5.9 g/dL (6.4-8.9)
[2019-02-25] MEDS: Piperacillin/Tazobactam 3.375 GM in 0.9 % Sodium Chloride Mini Bag 100 ML IVPB SCH ×3 (00:37→16:33)
[2019-02-25 03:51] LABS: Basophils % 0.1 %; Eosinophils % 0.1 %
[2019-02-25 03:53] LABS: Hematocrit 29.3 % (35.3-44.9); Hemoglobin 8.9 g/dL (11.5-15.4); Immature Granulocytes % 0.7 % (0-4); Lymphocytes % 3.9 %; Mean Corpuscular HGB Conc 30.4 g/dL (31.6-35.5); Mean Corpuscular Volume 95.4 fL (83.0-100.0); Monocytes # 1.8 K/mcL (0.0-1.3); Monocytes % 7.1 %; Neutrophils # 22.7 K/mcL (1.6-8.9); Platelet Count 387 K/mcL (140-400); Red Blood Count 3.07 M/mcL (3.82-4.97); Red Cell Distribution Width 16.4 % (11.5-14.5); Segmented Neutrophils % 88.1 %; White Blood Count 25.8 K/mcL (4.3-11.1)
[2019-02-25 04:21] LABS: Platelet Estimate Normal (Normal)
[2019-02-25 04:22] LABS: Anisocytosis 1+ (Not Present)
[2019-02-25] MEDS: Levalbuterol Neb 0.63 MG/3 ML IH SCH ×4 (05:00→21:17)
--- NOTE | 2019-02-25 06:49 | Pulmonology Progress Note ---
Date of Encounter: 02/25/19 Time of Encounter: 06:49 Assessment and Plan (1) Pneumothorax Current Visit: Yes Status: Acute This x-ray performed today showed reexpansion without evidence of pneumothorax there is no significant air leak on examination however after clamp trial patient had reaccumulation of pneumothorax. Very small early today with pers istent pneumothorax. Could consider chest tube removal although high risk at this point I would put the chest to back to wall suction and discussed the case with the thoracic surgery for any further recommendations she may need to be discharged with a Heimlich valve. Qualifiers: Encounter type: subsequent encounter Qualified Code(s): S27.0XXD - Traumatic pneumothorax, subsequent encounter (2) Acute exacerbation of chronic obstructive airways disease Current Visit: Yes Status: Acute cont bronchodilators and can taper to prednisone for prolonged taper or 3 weeks. Pulm f/u (3) Cavitary lesion of lung Current Visit: No Status: Chronic s/p CT guided biopsy Most likely lung abscess but malignancy cannot be fully excluded histo and micro-from the pathology pending Appreciated infectious disease consultation - continue antibiotics Subjective Principal diagnosis: Dyspnea Interval history: No significant change overnight she still complaining of pain at the chest tube site but denies any hemoptysis. She is sleepy and tired when he came in the room she was sleeping near her oatmeal. Objective PUL Vital signs: Last Vital Signs Temp 97.8 F 02/25/19 04:52 Pulse 127 02/25/19 04:52 Resp 16 02/25/19 05:00 BP 127/75 02/25/19 04:52 Pulse Ox 91 02/25/19 05:00 General appearance: no acute distress Eyes: nonicteric Auscultation: bilateral: diminished breath sounds, rhonchi Cardiovascular: regular rate and rhythm Gastrointestinal: normoactive bowel sounds Integumentary: normal Extremities: edema Musculoskeletal: no deformities normal mental status, non-focal exam affect normal Results - Laboratory Findings CBC and BMP: 02/25/19 03:30 02/24/19 05:43 ABG ABG pH 7.48 pH Units (7.32-7.45) H 02/13/19 23:42 ABG pCO2 44 mmHg (35-45) 02/13/19 23:42 ABG pO2 62 mmHg (85-104) L 02/13/19 23:42 ABG O2 Saturation 93 % (95-98) L 02/13/19 23:42 PT/INR, D-dimer PT 14.9 Seconds (9.4-12.1) H 02/15/19 08:30 967 ng/mLFEU (0-500) H 02/10/19 17:14 Abnormal lab findings: Abnormal lab results WBC 25.8 K/mcL (4.3-11.1) H 02/25/19 03:30 RBC 3.07 M/mcL (3.82-4.97) L 02/25/19 03:30 Hgb 8.9 g/dL (11.5-15.4) L 02/25/19 03:30 Hct 29.3 % (35.3-44.9) L 02/25/19 03:30 MCHC 30.4 g/dL (31.6-35.5) L 02/25/19 03:30 RDW 16.4 % (11.5-14.5) H 02/25/19 03:30 Plt Count 405 K/mcL (140-400) H 02/22/19 04:15 22.7 K/mcL (1.6-8.9) H 02/25/19 03:30 0.4 K/mcL (0.6-4.6) L 02/13/19 03:02 1.8 K/mcL (0.0-1.3) H 02/25/19 03:30 Slight increase (Normal) H 02/18/19 12:35 1+ (Not Present) A 02/25/19 03:30 ESR 118 mm/hr (0-15) H 02/22/19 04:15 PT 14.9 Seconds (9.4-12.1) H 02/15/19 08:30 967 ng/mLFEU (0-500) H 02/10/19 17:14 ABG pH 7.48 pH Units (7.32-7.45) H 02/13/19 23:42 ABG pO2 62 mmHg (85-104) L 02/13/19 23:42 ABG HCO3 33 mEq/L (21-27) H 02/13/19 23:42 ABG Total CO2 34 mEq/L (20-26) H 02/13/19 23:42 ABG O2 Saturation 93 % (95-98) L 02/13/19 23:42 ABG Base Excess 8 mEq/L (-2 to 3) H 02/13/19 23:42 Sodium 131 mEq/L (136-145) L 02/16/19 04:30 Potassium 5.3 mEq/L (3.5-5.1) H 02/20/19 05:30 Chloride 97 mEq/L (98-107) L 02/17/19 06:10 Carbon Dioxide 30 mEq/L (23-29) H 02/23/19 04:00 BUN 27 mg/dL (8-23) H 02/24/19 05:43 0.59 mg/dL (0.60-1.20) L 02/24/19 05:43 46 (6-26) H 02/24/19 05:43 Glucose 135 mg/dL (70-105) H 02/24/19 05:43 POC Glucose 173 mg/dL (70-99) H 02/25/19 00:49 306 (280-300) H 02/15/19 04:20 Lactic Acid 2.4 mmol/L (0.5-2.2) H 02/10/19 17:34 Calcium 10.4 mg/dL (8.6-10.3) H 02/20/19 05:30 Phosphorus 2.5 mg/dL (2.7-4.5) L 02/22/19 04:15 97 mg/L (Less than 10) H 02/22/19 04:15 B-Natriuretic Peptide 512 pg/mL (Less than 100) H 02/13/19 03:02 5.9 g/dL (6.4-8.9) L 02/24/19 05:43 2.7 g/dL (3.5-5.7) L 02/24/19 05:43 0.8 (1.1-2.2) L 02/24/19 05:43 Trace-intact (Negative) H 02/10/19 23:52 Ur Squamous Epith Cells Moderate per lpf (None-Few) H 02/10/19 23:52 Histoplasma Yeast Ab CF 1:8 (<1:8) H 02/17/19 10:35 Aspergillus Ab (CompFix) 1:16 (<1:8) H 02/17/19 10:35 A. galactomannan Ag POSITIVE (Negative) A 02/17/19 10:35 B-(1,3)-D-Glucan Intrp POSITIVE (Negative) A 02/17/19 10:35 - Diagnostic Findings Chest x-ray: report reviewed, image reviewed - Clinical Findings Intake & Output: Intake & Output 02/24/19 02/24/19 02/25/19 15:59 23:59 07:59 Intake Total 460 / 780 160 / 780 180 / 180 Output Total 700 / 1100 200 / 1100 300 / 300 Balance -240 / -320 -40 / -320 -120 / -120 Weight 65 kg Consult Discharge Plan - Plan Referrals: Aren Malik Jr, MD [Primary Care Provider] -
[2019-02-25] MEDS: *HR* OxyCODONE Immed Rel 5 MG TABLET PO PRN (07:14)
[2019-02-25] MEDS: Loratadine 10 MG TABLET PO SCH (08:57)
[2019-02-25] MEDS: Lactobacillus 1 EACH CAP.SPRINK PO SCH (08:57)
[2019-02-25] MEDS: predniSONE 20 MG TABLET PO SCH (08:58)
[2019-02-25] MEDS: Nystatin SUSP 5 ML UD.LIQ PO SCH ×3 (08:58→16:34)
[2019-02-25] MEDS: Furosemide 40 MG TABLET PO SCH (08:58)
[2019-02-25] MEDS: Magnesium Oxide 400 MG TABLET PO SCH (08:58)
[2019-02-25] MEDS: Aspirin Enteric Coated 81 MG Tablet PO SCH (08:58)
--- NOTE | 2019-02-25 10:06 | Infectious Disease Progress No ---
ID Progress Note Date of Encounter: 02/25/19 Time of Encounter: 10:04 - Subjective Subjective: Patient seen and examined. No acute events noted overnight. Stat post CT-guided lung biopsy 02/15/19. Path and GMS stains still pending. Status post chest tube exchange 02/18/19. Status post blood patch placement 02/23/19. She denies fevers, chills, or rigors. Denies chest pain. Reports pain at the site of the chest tube. Reports a cough productive of light brown sputum. Reports persistent shortness of breath, worse with exertion. Denies nausea, vomiting, diarrhea, or constipation. States her stools are a little bit loose. Denies abdominal pain or urinary complaints. States her appetite is okay. Denies oral thrush or skin rashes. - Objective CBC & Chem 7: 02/25/19 03:30 02/24/19 05:43 - Exam Vitals: Temp Pulse Resp BP Pulse Ox 97.8 F 117 24 127/80 89 02/25/19 08:08 02/25/19 08:08 02/25/19 09:55 02/25/19 08:08 02/25/19 09:55 Exam: Head: Atraumatic, normal inspection, normocephalic. Eye: EOMI, PERRLA, no scleral icterus noted. ENT: Mucous membranes moist. No odontogenic infection noted. Neck: Normal inspection, no meningismus. Respiratory: Coarse crackles throughout. Chest tube noted to the right posterior thorax with scant amount of serous sanguinous drainage noted to water seal. No crepitus today. Cardiovascular: Regular rate, tachycardiac. S1 and S2 audible. No murmurs, rubs, or gallops. GI: Soft, nondistended, normal bowel sounds. Extremities: No joint swelling, pedal edema, or tenderness noted. Neurological: Alert, oriented 3, no focal deficits. Psychiatric: normal affect, normal mood. Skin: Dry, intact, warm. Normal color. No rashes. - Assessment and Plan (1) Sepsis Current Visit: No Status: Acute The patient had 3 sepsis criteria on admission. Likely secondary to pneumonia. Improved. WBC remains elevated, likely secondary to steroids. Continues to have tachypnea and tachycardia. She has been afebrile. Blood cultures drawn 02/10/19 are negative 2 sets. Peripheral smear is negative for toxic granules or Dohle bodies. Qualifiers: Sepsis type: sepsis due to unspecified organism Qualified Code(s): A41.9 - Sepsis, unspecified organism SNOMED Code(s): 69968081 (2) Leukocytosis Current Visit: Yes Status: Acute Likely reactive secondary to steroids. Clinically improved. Peripheral smear negative for toxic granules or Dohle bodies. Procalcitonin negative. Continue to trend. Qualifiers: Leukocytosis type: unspecified Qualified Code(s): D72.829 - Elevated white blood cell count, unspecified SNOMED Code(s): 868532833, 947906642 (3) Healthcare-associated pneumonia Current Visit: Yes Status: Acute Location: Right base. Causative organism: Unclear. CT of the chest revealed a right basilar infiltrate concerning for aspiration pneumonia versus other. MRSA screen was negative. Strep pneumococcal and legionella urinary antigens were negative. Respiratory infectious panel was negative. Sputum culture is positive for fungal elements. Final ID is pending. Fungitell and Asp. galactomannan positive, however the patient has been on Zosyn which could cause a false-positive Asp. galactomannan. Procalcitonin 0.03. Currently on IV Zosyn (day 14). SNOMED Code(s): 185498659, 460218506 (4) Pneumothorax on right Current Visit: Yes Status: Resolved Chest x-ray completed 02/14/19 revealed a large right-sided pneumothorax. Status post chest tube placement 02/14/19 by the acute care surgery team. Repeat chest x-ray shows a possible trace right apical pneumothorax. Chest x-ray 02/16/19 shows a mild right pneumothorax that is mildly decreased as well as findings consistent with COPD and stable bibasilar consolidations. Repeat chest x-ray 02/17/19 shows resolution of the right-sided pneumothorax and continued bibasilar opacities with new evidence of intra-fissural fluid on the right. Status post chest tube exchange 02/18/19, after which chest tube was clamped and patient developed worsening of PTX. Serial CXRs showed improvement, but persistent PTX. Status post blood patch placement 02/23/19 by interventional radiology. Repeat chest x-ray post-procedure negative for pneumothorax. CXR 02/25/19 showed stable small PTX. Management per the pulmonary team. SNOMED Code(s): 629904066 (5) Acute respiratory failure Current Visit: Yes Status: Acute Likely multifactorial: Pneumonia, COPD, pulmonary fibrosis, bronchiectasis, cavitary lung lesion, and pneumothorax. O2 demands remain high. She is currently on nasal cannula at 8LPM. Still severely dyspneic with exertion. Pulmonology consult and following. Qualifiers: Respiratory failure complication: hypoxia Qualified Code(s): J96.01 - Acute respiratory failure with hypoxia SNOMED Code(s): 73643202 (6) Cavitary lesion of lung Current Visit: No Status: Chronic First seen in 11/11/2018. Extensive workup including for TB, fungal element were all negative. Status post bronchoscopy 11/15/2018 and 12/13/2018. Both were also nonrevealing. Cultures were negative. Fungal cultures and AFB were negative. And flow cytometry were almost negative. Patient was treated with 8 weeks of Augmentin and doxycycline with no improvement whatsoever. High index of suspicion for malignancy. Fungitell and Aspergillus galactomannan positive. Sputum culture positive for fungal elements. Status post CT-guided biopsy 02/15/19. Cultures are negative. Fungal cultures no growth. AFB negative. Pathology (including GMS stain) is pending. I called and spoke with the pathology lab he states we may have results as of the first of the week. The patient has declined transfer for a second opinion. She states she wants to see if the blood patch helps and she can get the chest tube out. Given that we are still waiting for the pathology results and the patient really is not much better, we opted to start empiric voriconazole until we get the GMS stain and pathology back. SNOMED Code(s): 138169637 (7) Pulmonary fibrosis Current Visit: Yes Status: Chronic SNOMED Code(s): 31248173 (8) CAD (coronary artery disease) Current Visit: Yes Status: Chronic Qualifiers: Coronary Disease-Associated Artery/Lesion type: [place] artery [place] vs. transplanted heart: unspecified whether [place] or transplanted heart Associated angina: without angina Qualified Code(s): I25.10 - Atherosclerotic heart disease of [place] coronary artery without angina pectoris SNOMED Code(s): 03003491 (9) Hyperlipidemia Current Visit: No Status: Acute Qualifiers: Hyperlipidemia type: Mixed hyperlipidemia SNOMED Code(s): 98751283 - Recommendations Recommendations: Continue to trend CBC with differential. Await biopsy results. Chest tube management per the pulmonology team. O2 management per the pulmonology team. Consider transfer to tertiary care center for second opinion. Discussed with the patient, her daughter, and the primary team. Patient declined. Recommend repeat CT of the chest to re-evaluate PNA. Continue Zosyn 3.375 g IV every 8 hours. (Day 14). Continue Voriconazole 200mg PO BID. Stop lovastatin while on voriconazole. Duration of treatment depends on the clinical picture. Monitor renal function and dose adjust antibiotics. Consult Discharge Plan - Plan Referrals: Aren Malik Jr, MD [Primary Care Provider] - - Attending Attestation I have personally performed a face to face evaluation on this patient. I have reviewed and agree with the care plan. History and Exam by me shows: Assessment and plan: 1.Sepsis 2.Leukocytosis 3.Healthcare associated pneumonia 4.Cavitary lung lesion status post biopsy 02/15/2019 5.Pulmonary fibrosis 6.Chronic respiratory failure Recommendations: Continue Zosyn for now. Depending on the CT findings will make further recommendations on the antibiotics Continue voriconazole Monitor LFTs Check voriconazole level in about 2 weeks Patient tells me she is tolerating the voriconazole but she is sensing some side effects Patient going for CT scan right now we will follow-up on the
--- NOTE | 2019-02-25 10:51 | Internal Med Progress Note ---
Hospitalist Progress Note - Encounter Date of Encounter: 02/25/19 Time of Encounter: 09:40 - Subjective Interval History: awake, just finished breathing treatment, no family at bedside. cont to feel slightly improved daily, sob slight improvement from yesterday, still very sob with exertion, able to cough up secretions now, denies wheezing, cp or palpita tions. chest tube remains in place. discomfort tolerable - Exam Vitals: Temp Pulse Resp BP Pulse Ox 97.8 F 117 24 127/80 89 02/25/19 08:08 02/25/19 08:08 02/25/19 09:55 02/25/19 08:08 02/25/19 09:55 Exam: gen- alert, awake,appears stated age, chornically ill appearing, nad cv- tachy rate 100ss and reg rhythm, normal s1,s2, no le edema , no jvd lungs- improved aeration throughout rigth posterior hernandez, course bs posteriorly, no wheezing, right sided chest tube in place abd- soft, non tender, non distended neuro- AAOx3, CN grossly intact - Assessment and Plan (1) Acute and chronic respiratory failure with hypoxia Current Visit: No Status: Acute (2) Pneumothorax on right Current Visit: Yes Status: Resolved (3) Acute exacerbation of chronic obstructive airways disease Current Visit: Yes Status: Acute (4) Heart failure with preserved ejection fraction Current Visit: Yes Status: Chronic (5) Severe protein-calorie malnutrition Current Visit: Yes Status: Chronic (6) Lesion of lung Current Visit: Yes Status: Chronic (7) Sinus tachycardia Current Visit: Yes Status: Acute (8) Cavitary pneumonia Current Visit: No Status: Acute - Summary of Assessment and Plan Summary of Assessment and Plan: Nany Peck is a 73 F w hx severe COPD on 5L c/b fibrosis and bronchiectasis, RLL cavitary lesion suspicious for abscess v malignancy, HFpEF, CAD s/p stents, HTN, MVP, anxiety, who on 02/10 p/w progressive SOB, productive cough w sputum color change, and fever, found to have elevated HR and RR, hypoxia, lactate 2.4, and CT showing possible acute infiltrates, concerning for CAP causing sepsis and COPD exacerbation leading to acute on chronic hypoxic respiratory failure. Hospital course c/b acute pneumothorax requiring chest tube placement on 02/14, which was exchanged on 02/18 for larger tube due to increasing PTX and persistent air leak. Pt did undergo CT guided lung biopsy of cavitary lesion on 02/15 with results pending. Persistent air leak and PTX. Underwent blood patch with IR 02/23. Pneumothorax: intermittent s/p blood patch requiring continued chest tube -Pulm managing -possible removal of chest tube in next 24 h Suspected Pneumonia, organism unknown RLL Cavitary lung lesion: s/p CT guided lung biopsy 02/15, per Pulm suspicious for abscess but micro no growth and awaiting path. Fungal labs show positive Fungitell (b-D-glucan) which was previously positive, and galactomannan now positive however pt currently on Zosyn and thus possibly false positive, CompFix w Aspergillus ab positive 1:16 and histo weakly positive 1:8 - ID following, cont zosyn, added vorconizole 02/24 -ID would like repeat non con CT chest once chest tube removed -ID rec is for transfer to [facility] for second opinion which she is declining Sepsis: clinically not septic in appearance, although remains persistently SIRS 2/4 - Leukocytosis: persistently elevated, possible fungal infection - Tachycardia: home lopressor 25 bid increased early in hospitalization to 100 bid and pt remains mildly tachycardic- nebs changed to xopenex, having pain with chest tube, prn pain control Severe emphysematous COPD: continue nebs home inhalers, and slowly taper prednisone over next 2-3 weeks (decrease pred to 30 on 02/22) Acute on Chronic hypoxic and hypercapneic respiratory failure: home 5L -currently on high flow NC 6-8L -IR intervention as above 02/23, cont to wean as able HFpEF: lasix 40 po daily (home dose is 20-40 daily prn), KCl 20 meq daily Severe protein calorie malnutrition: see nutrition notes CAD: home statin, ASA HTN: lopressor as above Anxiety: home celexa 20 daily GERD: H2B bid Chronic Anemia- baseline in recent months 8s-10s, sub q hep held, cont to monitor PPx: scds given red colored sputum Lines: PIV, chest tube Code: [id number]-A Dispo: patient requires inpatient eval and management at this time. goal of pt is eventually home w HH and will need referral to [facility] ID Internal Medicine: Result - Labs CBC & Chem 7: 02/25/19 03:30 02/24/19 05:43 Labs: Short CBC 02/25/19 Range/Units 03:30 WBC 25.8 H (4.3-11.1) K/mcL Hgb 8.9 L (11.5-15.4) g/dL Hct 29.3 L (35.3-44.9) % Plt Count 387 (140-400) K/mcL Neutrophils # 22.7 H (1.6-8.9) K/mcL BMP 02/24/19 05:43 Sodium 139 Potassium 4.4 Chloride 102 Carbon Dioxide 29 BUN 27 H Creatinine 0.59 L Glucose 135 H Calcium 9.7 Liver Function 02/24/19 Range/Units 05:43 Total Bilirubin 0.4 (0.3-1.0) mg/dL Direct Bilirubin 0.1 (0.0-0.2) mg/dL AST 19 (13-39) Units/L ALT 19 (7-52) Units/L Alkaline Phosphatase 81 (34-104) Units/L Albumin 2.7 L (3.5-5.7) g/dL - ABG Interpretation ABG results: ABG ABG pH 7.48 pH Units (7.32-7.45) H 02/13/19 23:42 ABG pCO2 44 mmHg (35-45) 02/13/19 23:42 ABG pO2 62 mmHg (85-104) L 02/13/19 23:42 ABG O2 Saturation 93 % (95-98) L 02/13/19 23:42 PT/INR, D-dimer PT 14.9 Seconds (9.4-12.1) H 02/15/19 08:30 967 ng/mLFEU (0-500) H 02/10/19 17:14 - Impressions Impressions Chest X-Ray 02/24/19 12:20 IMPRESSION: 1. Right chest tube in place with a small right apical pneumothorax. 2. Bibasilar opacities with bilateral effusions, stable from prior. 3. COPD. D/ / 02/24/2019 12:49:42 Shereen Kinsey MD / earnold Interpreting Provider: Shereen Kinsey MD Chest X-Ray 02/25/19 06:00 IMPRESSION: Stable appearing small right-sided pneumothorax with indwelling chest tube, with bibasilar airspace disease and small pleural effusions, with mild worsening airspace disease at the left base. D/ / Benji Springer MD / Benji Springer MD Interpreting Provider: Benji Springer MD Consult Discharge Plan - Plan Referrals: Aren Malik Jr, MD [Primary Care Provider] - (4) Heart failure with preserved ejection fraction Qualifiers: Heart failure chronicity: chronic Qualified Code(s): I50.32 - Chronic diastolic (congestive) heart failure
[2019-02-26] MEDS: *HR* OxyCODONE Immed Rel 5 MG TABLET PO PRN ×2 (00:21→18:10)
[2019-02-26] MEDS: Piperacillin/Tazobactam 3.375 GM in 0.9 % Sodium Chloride Mini Bag 100 ML IVPB SCH ×4 (00:22→23:59)
[2019-02-26] MEDS: Levalbuterol Neb 0.63 MG/3 ML IH SCH ×4 (04:02→22:05)
[2019-02-26 05:47] LABS: Basophils % 0.1 %; Eosinophils % 0.2 %; Hematocrit 29.5 % (35.3-44.9); Hemoglobin 8.7 g/dL (11.5-15.4); Immature Granulocytes % 0.6 % (0-4); Lymphocytes # 1.1 K/mcL (0.6-4.6); Lymphocytes % 5.7 %; Mean Corpuscular HGB Conc 29.5 g/dL (31.6-35.5); Mean Corpuscular Hemoglobin 28.8 pg (28.0-33.3); Mean Corpuscular Volume 97.7 fL (83.0-100.0); Mean Platelet Volume 10.9 fL (9.4-12.4); Monocytes # 1.4 K/mcL (0.0-1.3); Monocytes % 7.2 %; Neutrophils # 16.8 K/mcL (1.6-8.9); Platelet Count 383 K/mcL (140-400); Red Blood Count 3.02 M/mcL (3.82-4.97); Red Cell Distribution Width 16.1 % (11.5-14.5); Segmented Neutrophils % 86.2 %; White Blood Count 19.5 K/mcL (4.3-11.1)
[2019-02-26 06:04] LABS: BUN/Creatinine Ratio 61 (6-26); Blood Urea Nitrogen 30 mg/dL (8-23); Calcium 9.5 mg/dL (8.6-10.3); Carbon Dioxide 33 mEq/L (23-29); Chloride 97 mEq/L (98-107); Glucose 142 mg/dL (70-105); Osmolality,Calculated 295 (280-300); Potassium 4.7 mEq/L (3.5-5.1); Sodium 138 mEq/L (136-145); eGFR For African Americans > 60 (> 60); eGFR For Non-African Americans > 60 (> 60)
--- NOTE | 2019-02-26 06:47 | Pulmonology Progress Note ---
Date of Encounter: 02/26/19 Time of Encounter: 13:35 Assessment and Plan (1) Pneumothorax Current Visit: Yes Status: Acute Persistent pneumothorax keep the chest tube to wall suction over the weekend. I did discuss the case with the thoracic surgeon patient will likely need Heimlich valve and discharge with clinic follow-up this can be coordinated at the beginning of the week when of final recommendations for antibiotics from infectious disease team can be made pending final results from biopsy. I discussed the case at length with the patient and her family at bedside QUESTIONS were answered Qualifiers: Encounter type: subsequent encounter Qualified Code(s): S27.0XXD - Traumatic pneumothorax, subsequent encounter (2) Acute exacerbation of chronic obstructive airways disease Current Visit: Yes Status: Acute cont bronchodilators and can taper to prednisone for prolonged taper or 3 weeks. Pulm f/u (3) Cavitary lesion of lung Current Visit: No Status: Chronic s/p CT guided biopsy Most likely lung abscess but malignancy cannot be fully excluded histo and micro-from the pathology pending Appreciated infectious disease consultation - continue antibiotics Subjective Principal diagnosis: Dyspnea Interval history: She did have a period of hypoxia requiring increase in O2 requirements but she says clinically she is feeling about the same she sitting up in the chair she has some discomfort at the chest tube insertion site otherwise is at baseline she says she is anxious to leave the hospital Objective PUL Vital signs: Last Vital Signs Temp 97.8 F 02/26/19 02:58 Pulse 114 02/26/19 02:58 Resp 22 02/26/19 04:09 BP 123/77 02/26/19 02:58 Pulse Ox 88 02/26/19 04:09 General appearance: no acute distress Eyes: nonicteric ENT: oropharynx moist Auscultation: left: clear, right: diminished breath sounds Cardiovascular: regular rate and rhythm Gastrointestinal: normoactive bowel sounds Integumentary: normal Extremities: no cyanosis, no edema, no clubbing Musculoskeletal: no deformities normal mental status mood appropriate Results - Laboratory Findings CBC and BMP: 02/26/19 05:35 02/26/19 05:35 ABG ABG pH 7.48 pH Units (7.32-7.45) H 02/13/19 23:42 ABG pCO2 44 mmHg (35-45) 02/13/19 23:42 ABG pO2 62 mmHg (85-104) L 02/13/19 23:42 ABG O2 Saturation 93 % (95-98) L 02/13/19 23:42 PT/INR, D-dimer PT 14.9 Seconds (9.4-12.1) H 02/15/19 08:30 967 ng/mLFEU (0-500) H 02/10/19 17:14 Abnormal lab findings: Abnormal lab results WBC 19.5 K/mcL (4.3-11.1) H 02/26/19 05:35 RBC 3.02 M/mcL (3.82-4.97) L 02/26/19 05:35 Hgb 8.7 g/dL (11.5-15.4) L 02/26/19 05:35 Hct 29.5 % (35.3-44.9) L 02/26/19 05:35 MCHC 29.5 g/dL (31.6-35.5) L 02/26/19 05:35 RDW 16.1 % (11.5-14.5) H 02/26/19 05:35 Plt Count 405 K/mcL (140-400) H 02/22/19 04:15 16.8 K/mcL (1.6-8.9) H 02/26/19 05:35 0.4 K/mcL (0.6-4.6) L 02/13/19 03:02 1.4 K/mcL (0.0-1.3) H 02/26/19 05:35 Slight increase (Normal) H 02/18/19 12:35 1+ (Not Present) A 02/25/19 03:30 ESR 118 mm/hr (0-15) H 02/22/19 04:15 PT 14.9 Seconds (9.4-12.1) H 02/15/19 08:30 967 ng/mLFEU (0-500) H 02/10/19 17:14 ABG pH 7.48 pH Units (7.32-7.45) H 02/13/19 23:42 ABG pO2 62 mmHg (85-104) L 02/13/19 23:42 ABG HCO3 33 mEq/L (21-27) H 02/13/19 23:42 ABG Total CO2 34 mEq/L (20-26) H 02/13/19 23:42 ABG O2 Saturation 93 % (95-98) L 02/13/19 23:42 ABG Base Excess 8 mEq/L (-2 to 3) H 02/13/19 23:42 Sodium 131 mEq/L (136-145) L 02/16/19 04:30 Potassium 5.3 mEq/L (3.5-5.1) H 02/20/19 05:30 Chloride 97 mEq/L (98-107) L 02/26/19 05:35 Carbon Dioxide 33 mEq/L (23-29) H 02/26/19 05:35 BUN 30 mg/dL (8-23) H 02/26/19 05:35 0.49 mg/dL (0.60-1.20) L 02/26/19 05:35 61 (6-26) H 02/26/19 05:35 Glucose 142 mg/dL (70-105) H 02/26/19 05:35 POC Glucose 173 mg/dL (70-99) H 02/25/19 00:49 306 (280-300) H 02/15/19 04:20 Lactic Acid 2.4 mmol/L (0.5-2.2) H 02/10/19 17:34 Calcium 10.4 mg/dL (8.6-10.3) H 02/20/19 05:30 Phosphorus 2.5 mg/dL (2.7-4.5) L 02/22/19 04:15 97 mg/L (Less than 10) H 02/22/19 04:15 B-Natriuretic Peptide 512 pg/mL (Less than 100) H 02/13/19 03:02 5.9 g/dL (6.4-8.9) L 02/24/19 05:43 2.7 g/dL (3.5-5.7) L 02/24/19 05:43 0.8 (1.1-2.2) L 02/24/19 05:43 Trace-intact (Negative) H 02/10/19 23:52 Ur Squamous Epith Cells Moderate per lpf (None-Few) H 02/10/19 23:52 Histoplasma Yeast Ab CF 1:8 (<1:8) H 02/17/19 10:35 Aspergillus Ab (CompFix) 1:16 (<1:8) H 02/17/19 10:35 A. galactomannan Ag POSITIVE (Negative) A 02/17/19 10:35 B-(1,3)-D-Glucan Intrp POSITIVE (Negative) A 02/17/19 10:35 - Microbiology Findings Microbiology Findings: Microbiology, Last 48 Hours 02/19/19 05:05 Blood Fungal Culture - Preliminary Peripheral Venipuncture Culture is incubating and being continuously monitored for growth. Final report to follow. - Diagnostic Findings Chest x-ray: report reviewed, image reviewed - Clinical Findings Intake & Output: Intake & Output 02/25/19 02/25/19 02/26/19 15:59 23:59 07:59 Intake Total 220 / 600 100 / 600 100 / 100 Output Total 800 / 1100 250 / 250 Balance -580 / -500 100 / -500 -150 / -150 Weight 65 kg Consult Discharge Plan - Plan Referrals: Aren Malik Jr, MD [Primary Care Provider] -
[2019-02-26] MEDS: predniSONE 20 MG TABLET PO SCH (07:37)
[2019-02-26] MEDS: Lactobacillus 1 EACH CAP.SPRINK PO SCH (07:37)
[2019-02-26] MEDS: Aspirin Enteric Coated 81 MG Tablet PO SCH (07:38)
[2019-02-26] MEDS: Furosemide 40 MG TABLET PO SCH (07:38)
[2019-02-26] MEDS: Magnesium Oxide 400 MG TABLET PO SCH (07:38)
[2019-02-26] MEDS: Loratadine 10 MG TABLET PO SCH (07:38)
[2019-02-26] MEDS: Acetaminophen 325 MG TABLET PO PRN (07:41)
--- NOTE | 2019-02-26 08:04 | Internal Med Progress Note ---
Hospitalist Progress Note - Encounter Date of Encounter: 02/26/19 Time of Encounter: 09:30 - Subjective Interval History: awake, no family at bedside. She cont to have small improvement in ease of breathing daily. no discomfort from chest tube currently. denies fevers or chills, + productive cough, denies wheezing. no cp, pressure or palpitations. no dizziness - Exam Vitals: Temp Pulse Resp BP Pulse Ox 97.9 F 118 18 117/77 90 02/26/19 07:33 02/26/19 07:33 02/26/19 07:33 02/26/19 07:33 02/26/19 07:33 Exam: gen- alert, awake,appears stated age, nad cv- tachy rate 100s and reg rhythm, normal s1,s2, no le edema lungs- improved aeration throughout all posterior hernandez, course bs posteriorly L>R no wheezing, right sided chest tube in place to suction skin- warm, dry, no pallor neuro- AAOx3, CN grossly intact - Assessment and Plan (1) Acute and chronic respiratory failure with hypoxia Current Visit: No Status: Acute (2) Pneumothorax on right Current Visit: Yes Status: Resolved (3) Acute exacerbation of chronic obstructive airways disease Current Visit: Yes Status: Acute (4) Heart failure with preserved ejection fraction Current Visit: Yes Status: Chronic (5) Severe protein-calorie malnutrition Current Visit: Yes Status: Chronic (6) Lesion of lung Current Visit: Yes Status: Chronic (7) Sinus tachycardia Current Visit: Yes Status: Acute (8) Cavitary pneumonia Current Visit: No Status: Acute - Summary of Assessment and Plan Summary of Assessment and Plan: Nany Peck is a 73 F w hx severe COPD on 5L c/b fibrosis and bronchiectasis, RLL cavitary lesion suspicious for abscess v malignancy, HFpEF, CAD s/p stents, HTN, MVP, anxiety, who on 02/10 p/w progressive SOB, productive cough w sputum color change, and fever, found to have elevated HR and RR, hypoxia, lactate 2.4, and CT showing possible acute infiltrates, concerning for CAP causing sepsis and COPD exacerbation leading to acute on chronic hypoxic respiratory failure. Hospital course c/b acute pneumothorax requiring chest tube placement on 02/14, which was exchanged on 02/18 for larger tube due to increasing PTX and persistent air leak. Pt did undergo CT guided lung biopsy of cavitary lesion on 02/15 with results pending. Persistent air leak and PTX. Underwent blood patch with IR 02/23. Pneumothorax: intermittent s/p blood patch requiring continued chest tube -Pulm managing -chest tube to [place] this weekend to wall suction -Pulm has d/w CT surgery as she will likely need heimlich valve and clinic follow up--to be arranged early next week Suspected Pneumonia, organism unknown RLL Cavitary lung lesion: s/p CT guided lung biopsy 02/15, per Pulm suspicious for abscess but micro no growth and awaiting path. Fungal labs show positive Fungitell (b-D-glucan) which was previously positive, and galactomannan now positive however pt currently on Zosyn and thus possibly false positive, CompFix w Aspergillus ab positive 1:16 and histo weakly positive 1:8 - ID following, cont zosyn, added vorconizole 02/24 -ID rec is for transfer to [facility] for second opinion which she is declining Sepsis: clinically not septic in appearance, although remains persistently SIRS 2/4 - Leukocytosis: persistently elevated, possible fungal infection - Tachycardia: home lopressor 25 bid pt remains mildly tachycardic- nebs changed to xopenex, having pain with chest tube, prn pain control Severe emphysematous COPD: continue nebs home inhalers, and slowly taper pr ednisone over next 2-3 weeks (decrease pred to 30 on 02/22) Acute on Chronic hypoxic and hypercapneic respiratory failure: home 5L -currently on high flow NC 8-10L -IR intervention as above 02/23, cont to wean as able HFpEF: lasix 40 po daily (home dose is 20-40 daily prn) Severe protein calorie malnutrition: see nutrition notes CAD: home statin, ASA HTN: lopressor as above Anxiety: home celexa 20 daily GERD: H2B bid Chronic Anemia- baseline in recent months 8s-10s, sub q hep held, cont to mon itor PPx: scds given red colored sputum Lines: PIV, chest tube Code: DNRCC-A Dispo: patient requires inpatient eval and management at this time. goal of pt is eventually home w HH and will need referral to [facility] ID Internal Medicine: Result - Labs CBC & Chem 7: 02/26/19 05:35 02/26/19 05:35 Labs: Short CBC 02/26/19 Range/Units 05:35 WBC 19.5 H (4.3-11.1) K/mcL Hgb 8.7 L (11.5-15.4) g/dL Hct 29.5 L (35.3-44.9) % Plt Count 383 (140-400) K/mcL Neutrophils # 16.8 H (1.6-8.9) K/mcL BMP 02/26/19 05:35 Sodium 138 Potassium 4.7 Chloride 97 L Carbon Dioxide 33 H BUN 30 H Creatinine 0.49 L Glucose 142 H Calcium 9.5 - ABG Interpretation ABG results: ABG ABG pH 7.48 pH Units (7.32-7.45) H 02/13/19 23:42 ABG pCO2 44 mmHg (35-45) 02/13/19 23:42 ABG pO2 62 mmHg (85-104) L 02/13/19 23:42 ABG O2 Saturation 93 % (95-98) L 02/13/19 23:42 PT/INR, D-dimer PT 14.9 Seconds (9.4-12.1) H 02/15/19 08:30 967 ng/mLFEU (0-500) H 02/10/19 17:14 - Impressions Impressions Chest CT 02/25/19 15:17 IMPRESSION: Right chest tube terminates at the apex. Hydropneumothorax remains present, which appears partially loculated inferiorly. Small component of pleural fluid. Redemonstration of cavitary opacity in the right lung base without appreciable change. This may represent necrotic infection or mass. More prominent left basilar opacities are noted, which may represent developing inflammatory process or infection. Severe emphysema. D/ / Helder Hill / Helder Hill Interpreting Provider: Helder Hill Chest X-Ray 02/26/19 06:01 IMPRESSION: Small right hydropneumothorax, unchanged. D/ / Shawn Storey MD / Shawn Storey MD Interpreting Provider: Shawn Storey MD Consult Discharge Plan - Plan Referrals: Aren Malik Jr, MD [Primary Care Provider] - (4) Heart failure with preserved ejection fraction Qualifiers: Heart failure chronicity: chronic Qualified Code(s): I50.32 - Chronic diastolic (congestive) heart failure
[2019-02-26] MEDS: *HR* LORazepam 0.5 MG TABLET PO PRN (17:09)
[2019-02-27] MEDS: Levalbuterol Neb 0.63 MG/3 ML IH SCH ×4 (03:15→22:25)
[2019-02-27 05:39] LABS: Basophils % 0.1 %; Eosinophils # 0.1 K/mcL (0.0-0.6); Eosinophils % 0.4 %; Hematocrit 29.5 % (35.3-44.9); Hemoglobin 8.8 g/dL (11.5-15.4); Immature Granulocytes % 0.5 % (0-4); Lymphocytes # 1.3 K/mcL (0.6-4.6); Mean Corpuscular HGB Conc 29.8 g/dL (31.6-35.5); Mean Corpuscular Hemoglobin 28.9 pg (28.0-33.3); Mean Corpuscular Volume 96.7 fL (83.0-100.0); Mean Platelet Volume 10.8 fL (9.4-12.4); Monocytes # 1.4 K/mcL (0.0-1.3); Monocytes % 7.7 %; Neutrophils # 15.4 K/mcL (1.6-8.9); Platelet Count 423 K/mcL (140-400); Red Blood Count 3.05 M/mcL (3.82-4.97); Red Cell Distribution Width 16.1 % (11.5-14.5); Segmented Neutrophils % 84.3 %; White Blood Count 18.2 K/mcL (4.3-11.1)
[2019-02-27 05:58] LABS: Alanine Aminotransferase 16 Units/L (7-52); Albumin 3.1 g/dL (3.5-5.7); Albumin/Globulin Ratio 0.9 (1.1-2.2); Alkaline Phosphatase 96 Units/L (34-104); Aspartate Amino Transferase 17 Units/L (13-39); BUN/Creatinine Ratio 49 (6-26); Bilirubin,Total 0.3 mg/dL (0.3-1.0); Blood Urea Nitrogen 28 mg/dL (8-23); Calcium 9.8 mg/dL (8.6-10.3); Carbon Dioxide 32 mEq/L (23-29); Chloride 95 mEq/L (98-107); Globulin 3.5 g/dL (2.4-3.5); Glucose 137 mg/dL (70-105); Osmolality,Calculated 286 (280-300); Potassium 4.6 mEq/L (3.5-5.1); Sodium 134 mEq/L (136-145); Total Protein 6.6 g/dL (6.4-8.9); eGFR For African Americans > 60 (> 60); eGFR For Non-African Americans > 60 (> 60)
[2019-02-27] MEDS: Loratadine 10 MG TABLET PO SCH (07:39)
[2019-02-27] MEDS: Lactobacillus 1 EACH CAP.SPRINK PO SCH (07:40)
[2019-02-27] MEDS: Furosemide 40 MG TABLET PO SCH (07:40)
[2019-02-27] MEDS: Magnesium Oxide 400 MG TABLET PO SCH (07:40)
[2019-02-27] MEDS: predniSONE 20 MG TABLET PO SCH (07:40)
[2019-02-27] MEDS: Aspirin Enteric Coated 81 MG Tablet PO SCH (07:40)
[2019-02-27] MEDS: Piperacillin/Tazobactam 3.375 GM in 0.9 % Sodium Chloride Mini Bag 100 ML IVPB SCH ×2 (07:42→15:50)
--- NOTE | 2019-02-27 07:54 | Internal Med Progress Note ---
Hospitalist Progress Note - Encounter Date of Encounter: 02/27/19 Time of Encounter: 09:30 - Subjective Interval History: awake, no family at bedside. she is mildly out of breath. she notes she was just rigorously coughing but she is feeling fine. still improving slowly daily. sob with exertion. + sputum wan, no further red sputum and requesting heparin be restarted. denies fevers or chills. doing her best to eat good amount at each meal to keep up energy. still with significant discomfort from chest tube - Exam Vitals: Temp Pulse Resp BP Pulse Ox 98.0 F 114 18 115/70 94 02/27/19 07:00 02/27/19 07:00 02/27/19 07:00 02/27/19 07:00 02/27/19 07:00 Exam: gen- alert, awake,appears stated age cv- tachy rate low 100s and reg rhythm, normal s1,s2, no le edema lungs- diminshed righ post hernandez, otherwise ctabl no wheezing, right sided chest tube in place to suction skin- warm, dry, no pallor neuro- AAOx3, CN grossly intact - Assessment and Plan (1) Acute and chronic respiratory failure with hypoxia Current Visit: No Status: Acute (2) Pneumothorax on right Current Visit: Yes Status: Resolved (3) Acute exacerbation of chronic obstructive airways disease Current Visit: Yes Status: Acute (4) Heart failure with preserved ejection fraction Current Visit: Yes Status: Chronic (5) Severe protein-calorie malnutrition Current Visit: Yes Status: Chronic (6) Lesion of lung Current Visit: Yes Status: Chronic (7) Sinus tachycardia Current Visit: Yes Status: Acute (8) Cavitary pneumonia Current Visit: No Status: Acute - Summary of Assessment and Plan Summary of Assessment and Plan: Nany Peck is a 73 F w hx severe COPD on 5L c/b fibrosis and bronchiectasis, RLL cavitary lesion suspicious for abscess v malignancy, HFpEF, CAD s/p stents, HTN, MVP, anxiety, who on 02/10 p/w progressive SOB, productive cough w sputum color change, and fever, found to have elevated HR and RR, hypoxia, lactate 2.4, and CT showing possible acute infiltrates, concerning for CAP causing sepsis and COPD exacerbation leading to acute on chronic hypoxic respiratory failure. Hospital course c/b acute pneumothorax requiring chest tube placement on 02/14, which was exchanged on 02/18 for larger tube due to increasing PTX and persistent air leak. Pt did undergo CT guided lung biopsy of cavitary lesion on 02/15 with results pending. Persistent air leak and PTX. Underwent blood patch with IR 02/23. Pneumothorax: intermittent s/p blood patch requiring continued chest tube -Pulm managing -chest tube to remian [place] this weekend to wall suction -Pulm has d/w CT surgery as she will likely need heimlich valve and clinic follow up--to be arranged early next week Suspected Pneumonia, organism unknown RLL Cavitary lung lesion: s/p CT guided lung biopsy 02/15, per Pulm suspicious for abscess but micro no growth and awaiting path. Fungal labs show positive Fungitell (b-D-glucan) which was previously positive, and galactomannan now positive however pt currently on Zosyn and thus possibly false positive, CompFix w Aspergillus ab positive 1:16 and histo weakly positive 1:8 - ID following, cont zosyn, added vorconizole 02/24 -ID rec is for transfer to [facility] for second opinion which she is declining Sepsis: clinically not septic in appearance, although remains persistently SIRS 2/4 - Leukocytosis: persistently elevated, possible fungal infection - Tachycardia: lopressor 50 bid pt remains mildly tachycardic- nebs changed to xopenex, having pain with chest tube, prn pain control Severe emphysematous COPD: continue nebs home inhalers, and slowly taper prednisone over next 2-3 weeks (decrease pred to 30 on 02/22) Acute on Chronic hypoxic and hypercapneic respiratory failure: home 5L -currently on high flow NC 8-10L -IR intervention as above 02/23, cont to wean as able HFpEF: lasix 40 po daily (home dose is 20-40 daily prn) Severe protein calorie malnutrition: see nutrition notes CAD: home statin, ASA HTN: lopressor as above Anxiety: home celexa 20 daily GERD: H2B bid Chronic Anemia- baseline in recent months 8s-10s, sub q hep resumed at q12 h ppx dosing PPx: sqh Lines: PIV, chest tube Code: DNRCC-A Dispo: patient requires inpatient eval and management at this time. goal of pt is eventually home w HH and will need referral to [facility] ID Internal Medicine: Result - Labs CBC & Chem 7: 02/27/19 05:30 02/27/19 05:30 Labs: Short CBC 02/27/19 Range/Units 05:30 WBC 18.2 H (4.3-11.1) K/mcL Hgb 8.8 L (11.5-15.4) g/dL Hct 29.5 L (35.3-44.9) % Plt Count 423 H (140-400) K/mcL Neutrophils # 15.4 H (1.6-8.9) K/mcL BMP 02/27/19 05:30 Sodium 134 L Potassium 4.6 Chloride 95 L Carbon Dioxide 32 H BUN 28 H Creatinine 0.57 L Glucose 137 H Calcium 9.8 Liver Function 02/27/19 Range/Units 05:30 Total Bilirubin 0.3 (0.3-1.0) mg/dL AST 17 (13-39) Units/L ALT 16 (7-52) Units/L Alkaline Phosphatase 96 (34-104) Units/L Albumin 3.1 L (3.5-5.7) g/dL - ABG Interpretation ABG results: ABG ABG pH 7.48 pH Units (7.32-7.45) H 02/13/19 23:42 ABG pCO2 44 mmHg (35-45) 02/13/19 23:42 ABG pO2 62 mmHg (85-104) L 02/13/19 23:42 ABG O2 Saturation 93 % (95-98) L 02/13/19 23:42 PT/INR, D-dimer PT 14.9 Seconds (9.4-12.1) H 02/15/19 08:30 967 ng/mLFEU (0-500) H 02/10/19 17:14 - Impressions Impressions Chest X-Ray 02/26/19 06:01 IMPRESSION: Small right hydropneumothorax, unchanged. D/ / Shawn Storey MD / Shawn Storey MD Interpreting Provider: Shawn Storey MD Chest X-Ray 02/27/19 07:00 IMPRESSION: No significant interval change. D/ / Shawn Storey MD / Shawn Storey MD Interpreting Provider: Shawn Storey MD Consult Discharge Plan - Plan Referrals: Aren Malik Jr, MD [Primary Care Provider] - (4) Heart failure with preserved ejection fraction Qualifiers: Heart failure chronicity: chronic Qualified Code(s): I50.32 - Chronic diastolic (congestive) heart failure
--- NOTE | 2019-02-27 08:34 | Pulmonology Progress Note ---
Date of Encounter: 02/27/19 Time of Encounter: 08:34 Assessment and Plan (1) Pneumothorax Current Visit: Yes Status: Acute Persistent pneumothorax keep the chest tube to wall suction. Chest x-ray to be repeated in the morning Likely discharge with Heimlich valve Qualifiers: Encounter type: subsequent encounter Qualified Code(s): S27.0XXD - Traumatic pneumothorax, subsequent encounter (2) Acute exacerbation of chronic obstructive airways disease Current Visit: Yes Status: Acute cont bronchodilators and can taper to prednisone for prolonged taper or 3 weeks. Pulm f/u (3) Cavitary lesion of lung Current Visit: No Status: Chronic s/p CT guided biopsy Most likely lung abscess but malignancy cannot be fully excluded histo and micro-from the pathology pending Appreciated infectious disease consultation - continue antibiotics Subjective Principal diagnosis: Dyspnea Interval history: She is down to 8 L high flow oxygen. She says that she is feeling stronger every day and anticipating getting discharged to rehabilitation Objective PUL Vital signs: Last Vital Signs Temp 98.0 F 02/27/19 07:00 Pulse 114 02/27/19 07:00 Resp 18 02/27/19 07:00 BP 115/70 02/27/19 07:00 Pulse Ox 94 02/27/19 07:00 General appearance: no acute distress Eyes: nonicteric Auscultation: left: clear, right: diminished breath sounds Cardiovascular: regular rate and rhythm Gastrointestinal: normoactive bowel sounds Integumentary: normal Extremities: no edema normal mental status, non-focal exam mood appropriate Results - Laboratory Findings CBC and BMP: 02/27/19 05:30 02/27/19 05:30 ABG ABG pH 7.48 pH Units (7.32-7.45) H 02/13/19 23:42 ABG pCO2 44 mmHg (35-45) 02/13/19 23:42 ABG pO2 62 mmHg (85-104) L 02/13/19 23:42 ABG O2 Saturation 93 % (95-98) L 02/13/19 23:42 PT/INR, D-dimer PT 14.9 Seconds (9.4-12.1) H 02/15/19 08:30 967 ng/mLFEU (0-500) H 02/10/19 17:14 Abnormal lab findings: Abnormal lab results WBC 18.2 K/mcL (4.3-11.1) H 02/27/19 05:30 RBC 3.05 M/mcL (3.82-4.97) L 02/27/19 05:30 Hgb 8.8 g/dL (11.5-15.4) L 02/27/19 05:30 Hct 29.5 % (35.3-44.9) L 02/27/19 05:30 MCHC 29.8 g/dL (31.6-35.5) L 02/27/19 05:30 RDW 16.1 % (11.5-14.5) H 02/27/19 05:30 Plt Count 423 K/mcL (140-400) H 02/27/19 05:30 15.4 K/mcL (1.6-8.9) H 02/27/19 05:30 0.4 K/mcL (0.6-4.6) L 02/13/19 03:02 1.4 K/mcL (0.0-1.3) H 02/27/19 05:30 Slight increase (Normal) H 02/18/19 12:35 1+ (Not Present) A 02/25/19 03:30 ESR 118 mm/hr (0-15) H 02/22/19 04:15 PT 14.9 Seconds (9.4-12.1) H 02/15/19 08:30 967 ng/mLFEU (0-500) H 02/10/19 17:14 ABG pH 7.48 pH Units (7.32-7.45) H 02/13/19 23:42 ABG pO2 62 mmHg (85-104) L 02/13/19 23:42 ABG HCO3 33 mEq/L (21-27) H 02/13/19 23:42 ABG Total CO2 34 mEq/L (20-26) H 02/13/19 23:42 ABG O2 Saturation 93 % (95-98) L 02/13/19 23:42 ABG Base Excess 8 mEq/L (-2 to 3) H 02/13/19 23:42 Sodium 134 mEq/L (136-145) L 02/27/19 05:30 Potassium 5.3 mEq/L (3.5-5.1) H 02/20/19 05:30 Chloride 95 mEq/L (98-107) L 02/27/19 05:30 Carbon Dioxide 32 mEq/L (23-29) H 02/27/19 05:30 BUN 28 mg/dL (8-23) H 02/27/19 05:30 0.57 mg/dL (0.60-1.20) L 02/27/19 05:30 49 (6-26) H 02/27/19 05:30 Glucose 137 mg/dL (70-105) H 02/27/19 05:30 POC Glucose 173 mg/dL (70-99) H 02/25/19 00:49 306 (280-300) H 02/15/19 04:20 Lactic Acid 2.4 mmol/L (0.5-2.2) H 02/10/19 17:34 Calcium 10.4 mg/dL (8.6-10.3) H 02/20/19 05:30 Phosphorus 2.5 mg/dL (2.7-4.5) L 02/22/19 04:15 97 mg/L (Less than 10) H 02/22/19 04:15 B-Natriuretic Peptide 512 pg/mL (Less than 100) H 02/13/19 03:02 5.9 g/dL (6.4-8.9) L 02/24/19 05:43 3.1 g/dL (3.5-5.7) L 02/27/19 05:30 0.9 (1.1-2.2) L 02/27/19 05:30 Trace-intact (Negative) H 02/10/19 23:52 Ur Squamous Epith Cells Moderate per lpf (None-Few) H 02/10/19 23:52 Histoplasma Yeast Ab CF 1:8 (<1:8) H 02/17/19 10:35 Aspergillus Ab (CompFix) 1:16 (<1:8) H 02/17/19 10:35 A. galactomannan Ag POSITIVE (Negative) A 02/17/19 10:35 B-(1,3)-D-Glucan Intrp POSITIVE (Negative) A 02/17/19 10:35 - Microbiology Findings Microbiology Findings: Microbiology, Last 48 Hours 02/19/19 05:05 Blood Fungal Culture - Preliminary Peripheral Venipuncture Culture is incubating and being continuously monitored for growth. Final report to follow. - Diagnostic Findings Chest x-ray: report reviewed, image reviewed - Clinical Findings Intake & Output: Intake & Output 02/26/19 02/27/19 02/27/19 23:59 07:59 15:59 Intake Total 100 / 540 100 / 100 Output Total 300 / 550 0 / 0 Balance -200 / -10 100 / 100 Weight 65 kg Consult Discharge Plan - Plan Referrals: Aren Malik Jr, MD [Primary Care Provider] -
[2019-02-27] MEDS: *HR* OxyCODONE Immed Rel 5 MG TABLET PO PRN (10:17)
[2019-02-27] MEDS: *HR* Heparin 5,000 UNIT/ML VIAL SQ SCH (16:15)
[2019-02-27] MEDS: *HR* HYDROcodone/Acet 5/325 mg TABLET PO PRN (22:10)
[2019-02-28] MEDS: Piperacillin/Tazobactam 3.375 GM in 0.9 % Sodium Chloride Mini Bag 100 ML IVPB SCH ×3 (00:03→16:43)
[2019-02-28] MEDS: Ondansetron 4 MG/2 ML VIAL IVP PRN ×2 (00:32→08:19)
[2019-02-28] MEDS: Levalbuterol Neb 0.63 MG/3 ML IH SCH ×4 (03:19→23:01)
[2019-02-28] MEDS: *HR* Heparin 5,000 UNIT/ML VIAL SQ SCH ×2 (05:27→18:27)
[2019-02-28 05:57] LABS: Eosinophils # 0.1 K/mcL (0.0-0.6); Eosinophils % 0.6 %; Hematocrit 26.8 % (35.3-44.9); Immature Granulocytes % 0.5 % (0-4); Lymphocytes # 1.2 K/mcL (0.6-4.6); Lymphocytes % 10.7 %; Mean Corpuscular HGB Conc 29.9 g/dL (31.6-35.5); Mean Corpuscular Hemoglobin 28.9 pg (28.0-33.3); Mean Corpuscular Volume 96.8 fL (83.0-100.0); Monocytes # 1.1 K/mcL (0.0-1.3); Monocytes % 9.7 %; Platelet Count 377 K/mcL (140-400); Red Blood Count 2.77 M/mcL (3.82-4.97); Red Cell Distribution Width 15.9 % (11.5-14.5); Segmented Neutrophils % 78.5 %; White Blood Count 11.5 K/mcL (4.3-11.1)
--- NOTE | 2019-02-28 07:24 | Internal Med Progress Note ---
Hospitalist Progress Note - Encounter Date of Encounter: 02/28/19 Time of Encounter: 08:20 - Subjective Interval History: awake, RN at bedside. States overall feeling stable. sob with any exertion. no palpitations or chest pain. remains uncomfortable with chest tube. pain meds made her nauseated this morning. no abd pain, eating breakfast without issue. denies fevers or chills - Exam Vitals: Temp Pulse Resp BP Pulse Ox 97.8 F 109 18 104/72 93 02/28/19 06:36 02/28/19 06:36 02/28/19 06:36 02/28/19 06:36 02/28/19 06:36 Exam: gen- alert, awake,appears stated age cv- tachy rate low 120s and reg rhythm, normal s1,s2, no le edema lungs- diminished righ post hernandez, otherwise ctabl no wheezing, right sided chest tube in place to suction, improved aeration left base today abd- soft, non tender, non distended, + bs neuro- AAOx3, CN grossly intact - Assessment and Plan (1) Acute and chronic respiratory failure with hypoxia Current Visit: No Status: Acute (2) Pneumothorax on right Current Visit: Yes Status: Resolved (3) Acute exacerbation of chronic obstructive airways disease Current Visit: Yes Status: Acute (4) Heart failure with preserved ejection fraction Current Visit: Yes Status: Chronic (5) Lesion of lung Current Visit: Yes Status: Chronic (6) Sinus tachycardia Current Visit: Yes Status: Acute (7) Cavitary pneumonia Current Visit: No Status: Acute - Summary of Assessment and Plan Summary of Assessment and Plan: Nany Peck is a 73 F w hx severe COPD on 5L c/b fibrosis and bronchiec tasis, RLL cavitary lesion suspicious for abscess v malignancy, HFpEF, CAD s/p stents, HTN, MVP, anxiety, who on 02/10 p/w progressive SOB, productive cough w sputum color change, and fever, found to have elevated HR and RR, hypoxia, lactate 2.4, and CT showing possible acute infiltrates, concerning for CAP causing sepsis and COPD exacerbation leading to acute on chronic hypoxic respiratory failure. Hospital course c/b acute pneumothorax requiring chest tube placement on 02/14, which was exchanged on 02/18 for larger tube due to increasing PTX and persistent air leak. Pt did undergo CT guided lung biopsy of cavitary lesion on 02/15 with results pending. Persistent air leak and PTX. Underwent blo od patch with IR 02/23. Pneumothorax: intermittent s/p blood patch requiring continued chest tube -Pulm managing -chest tube remains in place to wall suction -Pulm has d/w CT surgery as she will likely need heimlich valve -will fu today's pulm recs, holding off on pt formal eval until tube out and s tability confirmed Suspected Pneumonia, organism unknown RLL Cavitary lung lesion: s/p CT guided lung biopsy 02/15, per Pulm suspicious for abscess but micro no growth and awaiting path. Fungal labs show positive Fungitell (b-D-glucan) which was previously positive, and galactomannan now positive however pt currently on Zosyn and thus possibly false positive, CompFix w Aspergillus ab positive 1:16 and histo weakly positive 1:8 - ID following, cont zosyn, added vorconizole 02/24 -ID rec is for transfer to [facility] for second opinion which she is declining Sepsis: clinically not septic in appearance, although remains persistently SIRS 2/4 - Leukocytosis: persistently elevated, possible fungal infection - Tachycardia: lopressor 50 bid pt remains mildly tachycardic but low normotensive therefore no addl changes at this time- nebs are xopenex, having pain with chest tube, prn pain control Severe emphysematous COPD: continue nebs home inhalers, and slowly taper prednisone over next 2-3 weeks (decrease pred to 30 on 02/22) Acute on Chronic hypoxic and hypercapneic respiratory failure: home 5L -currently on high flow [place] 8-10L -IR intervention as above 02/23, cont to wean as able HFpEF: lasix 40 po daily (home dose is 20-40 daily prn) Severe protein calorie malnutrition: see nutrition notes CAD: home statin, ASA HTN: lopressor as above Anxiety: home celexa 20 daily GERD: H2B bid Chronic Anemia- baseline in recent months 8s-10s, sub q hep resumed at q12 h ppx dosing PPx: sqh Lines: PIV, chest tube Code: DNRCC-A Dispo: patient requires inpatient eval and management at this time. goal of pt is eventually home w HH and will need referral to [facility] ID Internal Medicine: Result - Labs CBC & Chem 7: 02/28/19 05:15 02/27/19 05:30 Labs: Short CBC 02/28/19 Range/Units 05:15 WBC 11.5 H (4.3-11.1) K/mcL Hgb 8.0 L (11.5-15.4) g/dL Hct 26.8 L (35.3-44.9) % Plt Count 377 (140-400) K/mcL Neutrophils # 9.0 H (1.6-8.9) K/mcL - ABG Interpretation ABG results: ABG ABG pH 7.48 pH Units (7.32-7.45) H 02/13/19 23:42 ABG pCO2 44 mmHg (35-45) 02/13/19 23:42 ABG pO2 62 mmHg (85-104) L 02/13/19 23:42 ABG O2 Saturation 93 % (95-98) L 02/13/19 23:42 PT/INR, D-dimer PT 14.9 Seconds (9.4-12.1) H 02/15/19 08:30 967 ng/mLFEU (0-500) H 02/10/19 17:14 - Impressions Impressions Chest X-Ray 02/28/19 07:00 IMPRESSION: Stable chest. Pigtail right-sided chest tube in unchanged position with small loculated pneumothorax at the right costophrenic angle. Bibasilar airspace disease persists, presumably related to atelectasis. Continued radiographic follow-up recommended. D/ / Madi Nina MD / Madi Nina MD Interpreting Provider: Madi Nina MD Consult Discharge Plan - Plan Referrals: Aren Malik Jr, MD [Primary Care Provider] - (4) Heart failure with preserved ejection fraction Qualifiers: Heart failure chronicity: chronic Qualified Code(s): I50.32 - Chronic diastolic (congestive) heart failure
[2019-02-28] MEDS: predniSONE 20 MG TABLET PO SCH (08:24)
[2019-02-28] MEDS: Furosemide 40 MG TABLET PO SCH (08:27)
[2019-02-28] MEDS: Magnesium Oxide 400 MG TABLET PO SCH (08:27)
[2019-02-28] MEDS: Loratadine 10 MG TABLET PO SCH (08:27)
[2019-02-28] MEDS: Aspirin Enteric Coated 81 MG Tablet PO SCH (08:27)
[2019-02-28] MEDS: Lactobacillus 1 EACH CAP.SPRINK PO SCH (08:27)
--- NOTE | 2019-02-28 12:05 | Cardiothoracic Progress Note ---
Date of Encounter: 02/28/19 Time of Encounter: 12:02 - Assessment and plan (1) Iatrogenic pneumothorax Current Visit: Yes Status: Acute The assessment and plan as outlined above was discussed with the patient and/or family members who expressed understanding and agreement. All questions were answered. patient will require assisted chest tube management as her severe copd with acute on respiratory failure places her in a nonoperative management of the iatrogenic pneumothorax. second opinion can be obtained from an outside facility (2) Community acquired pneumonia Current Visit: No Status: Acute The assessment and plan as outlined above was discussed with the patient and/or family members who expressed understanding and agreement. All questions were answered. Qualifiers: Laterality: right Lung location: lower lobe of lung Qualified Code(s): J18.1 - Lobar pneumonia, unspecified organism Vital Signs, Last 4 Hours Temp Pulse Resp BP Pulse Ox 02/28/19 10:52 20 97 02/28/19 10:28 97.5 F L 94 18 99/62 98 Oxgyen Flow Rate Oxygen Flow Rate (LPM) 10 Weight 02/26/19 02/27/19 02/28/19 23:59 23:59 23:59 Weight 65 kg 65 kg 65.2 kg - Labs 02/28/19 05:15 02/27/19 05:30 Lab Results, Last 24 hours 02/28/19 05:15 WBC 11.5 H Hgb 8.0 L Hct 26.8 L Plt Count 377 Consult Discharge Plan - Plan Referrals: Aren Malik Jr, MD [Primary Care Provider] -
--- NOTE | 2019-02-28 16:55 | Pulmonology Progress Note ---
Date of Encounter: 02/28/19 Time of Encounter: 11:20 Assessment and Plan (1) Pneumothorax on right Current Visit: Yes Status: Acute Patient has severe underlying lung disease and she is still requiring chest tube and most recent chest x-ray still shows evidence of loculated pneumothorax. Have discussed with thoracic surgeon regarding the management and please refer to thoracic surgeons note regarding recommendation. I am concerned about leaving patient without connection to the chest tube chamber at this time and she will need to be transferred such as [facility] in [place] to manage her chest tube. I have discussed with the family at the bedside that that would be discussing with thoracic surgeon. (2) Cavitary lesion of lung Current Visit: No Status: Chronic I have discussed with infectious disease team and agree with the management. (3) Acute and chronic respiratory failure with hypoxia Current Visit: No Status: Acute Keep oxygen saturation around 90%. (4) Cavitary pneumonia Current Visit: Yes Status: Chronic (5) Pneumonia Current Visit: Yes Status: Acute Qualifiers: Pneumonia type: due to unspecified organism Laterality: bilateral Lung location: unspecified part of lung Qualified Code(s): J18.9 - Pneumonia, unspecified organism Subjective Principal diagnosis: Dyspnea Interval history: Overall patient is feeling better, she is asking when she can go home. Objective PUL Vital signs: Last Vital Signs Temp 98.1 F 02/28/19 15:50 Pulse 113 02/28/19 15:50 Resp 18 02/28/19 15:50 BP 110/66 02/28/19 15:50 Pulse Ox 96 02/28/19 15:50 General appearance: no acute distress Eyes: nonicteric ENT: oropharynx moist Neck: supple Effort: normal Auscultation: right: other (Chest tube), bilateral: diminished breath sounds Percussion: bilateral: not dull Cardiovascular: irregular rhythm Gastrointestinal: normoactive bowel sounds, non-distended Extremities: no cyanosis, edema non-focal exam mood appropriate Results - Laboratory Findings CBC and BMP: 02/28/19 05:15 02/27/19 05:30 ABG ABG pH 7.48 pH Units (7.32-7.45) H 02/13/19 23:42 ABG pCO2 44 mmHg (35-45) 02/13/19 23:42 ABG pO2 62 mmHg (85-104) L 02/13/19 23:42 ABG O2 Saturation 93 % (95-98) L 02/13/19 23:42 PT/INR, D-dimer PT 14.9 Seconds (9.4-12.1) H 02/15/19 08:30 967 ng/mLFEU (0-500) H 02/10/19 17:14 Abnormal lab findings: Abnormal lab results WBC 11.5 K/mcL (4.3-11.1) H 02/28/19 05:15 RBC 2.77 M/mcL (3.82-4.97) L 02/28/19 05:15 Hgb 8.0 g/dL (11.5-15.4) L 02/28/19 05:15 Hct 26.8 % (35.3-44.9) L 02/28/19 05:15 MCHC 29.9 g/dL (31.6-35.5) L 02/28/19 05:15 RDW 15.9 % (11.5-14.5) H 02/28/19 05:15 Plt Count 423 K/mcL (140-400) H 02/27/19 05:30 9.0 K/mcL (1.6-8.9) H 02/28/19 05:15 0.4 K/mcL (0.6-4.6) L 02/13/19 03:02 1.4 K/mcL (0.0-1.3) H 02/27/19 05:30 Slight increase (Normal) H 02/18/19 12:35 1+ (Not Present) A 02/25/19 03:30 ESR 118 mm/hr (0-15) H 02/22/19 04:15 PT 14.9 Seconds (9.4-12.1) H 02/15/19 08:30 967 ng/mLFEU (0-500) H 02/10/19 17:14 ABG pH 7.48 pH Units (7.32-7.45) H 02/13/19 23:42 ABG pO2 62 mmHg (85-104) L 02/13/19 23:42 ABG HCO3 33 mEq/L (21-27) H 02/13/19 23:42 ABG Total CO2 34 mEq/L (20-26) H 02/13/19 23:42 ABG O2 Saturation 93 % (95-98) L 02/13/19 23:42 ABG Base Excess 8 mEq/L (-2 to 3) H 02/13/19 23:42 Sodium 134 mEq/L (136-145) L 02/27/19 05:30 Potassium 5.3 mEq/L (3.5-5.1) H 02/20/19 05:30 Chloride 95 mEq/L (98-107) L 02/27/19 05:30 Carbon Dioxide 32 mEq/L (23-29) H 02/27/19 05:30 BUN 28 mg/dL (8-23) H 02/27/19 05:30 0.57 mg/dL (0.60-1.20) L 02/27/19 05:30 49 (6-26) H 02/27/19 05:30 Glucose 137 mg/dL (70-105) H 02/27/19 05:30 POC Glucose 173 mg/dL (70-99) H 02/25/19 00:49 306 (280-300) H 02/15/19 04:20 Lactic Acid 2.4 mmol/L (0.5-2.2) H 02/10/19 17:34 Calcium 10.4 mg/dL (8.6-10.3) H 02/20/19 05:30 Phosphorus 2.5 mg/dL (2.7-4.5) L 02/22/19 04:15 97 mg/L (Less than 10) H 02/22/19 04:15 B-Natriuretic Peptide 512 pg/mL (Less than 100) H 02/13/19 03:02 5.9 g/dL (6.4-8.9) L 02/24/19 05:43 3.1 g/dL (3.5-5.7) L 02/27/19 05:30 0.9 (1.1-2.2) L 02/27/19 05:30 Trace-intact (Negative) H 02/10/19 23:52 Ur Squamous Epith Cells Moderate per lpf (None-Few) H 02/10/19 23:52 Histoplasma Yeast Ab CF 1:8 (<1:8) H 02/17/19 10:35 Aspergillus Ab (CompFix) 1:16 (<1:8) H 02/17/19 10:35 A. galactomannan Ag POSITIVE (Negative) A 02/17/19 10:35 B-(1,3)-D-Glucan Intrp POSITIVE (Negative) A 02/17/19 10:35 - Diagnostic Findings Chest x-ray: report reviewed, image reviewed - Clinical Findings Intake & Output: Intake & Output 02/28/19 02/28/19 02/28/19 07:59 15:59 23:59 Intake Total 100 / 440 340 / 440 Output Total 325 / 330 5 / 330 Balance 100 / 110 15 / 110 - 110 Weight 65.2 kg Consult Discharge Plan - Plan Referrals: Aren Malik Jr, MD [Primary Care Provider] -
[2019-02-28] MEDS: *HR* OxyCODONE Immed Rel 5 MG TABLET PO PRN (18:46)
[2019-03-01] MEDS: Piperacillin/Tazobactam 3.375 GM in 0.9 % Sodium Chloride Mini Bag 100 ML IVPB SCH ×3 (00:27→15:48)
[2019-03-01] MEDS: Levalbuterol Neb 0.63 MG/3 ML IH SCH ×4 (03:59→22:06)
[2019-03-01] MEDS: *HR* OxyCODONE Immed Rel 5 MG TABLET PO PRN ×2 (04:28→18:06)
[2019-03-01] MEDS: *HR* Heparin 5,000 UNIT/ML VIAL SQ SCH ×2 (04:54→17:57)
[2019-03-01 06:41] LABS: Basophils % 0.1 %; Eosinophils # 0.1 K/mcL (0.0-0.6); Eosinophils % 0.6 %; Hematocrit 28.2 % (35.3-44.9); Hemoglobin 8.2 g/dL (11.5-15.4); Immature Granulocytes % 0.7 % (0-4); Lymphocytes # 1.3 K/mcL (0.6-4.6); Lymphocytes % 10.3 %; Mean Corpuscular HGB Conc 29.1 g/dL (31.6-35.5); Mean Corpuscular Hemoglobin 28.1 pg (28.0-33.3); Mean Corpuscular Volume 96.6 fL (83.0-100.0); Monocytes # 1.2 K/mcL (0.0-1.3); Monocytes % 9.7 %; Neutrophils # 9.8 K/mcL (1.6-8.9); Nucleated Red Blood Cells 0.2 /100 WBC (0); Platelet Count 367 K/mcL (140-400); Red Blood Count 2.92 M/mcL (3.82-4.97); Segmented Neutrophils % 78.6 %; White Blood Count 12.4 K/mcL (4.3-11.1)
[2019-03-01 06:48] LABS: INR 1.1; Prothrombin Time 12.2 Seconds (9.4-12.1)
[2019-03-01 06:58] LABS: BUN/Creatinine Ratio 47 (6-26); Blood Urea Nitrogen 27 mg/dL (8-23); Calcium 9.3 mg/dL (8.6-10.3); Carbon Dioxide 35 mEq/L (23-29); Chloride 97 mEq/L (98-107); Glucose 135 mg/dL (70-105); Magnesium 1.8 mg/dL (1.6-2.6); Osmolality,Calculated 293 (280-300); Potassium 4.6 mEq/L (3.5-5.1); Sodium 138 mEq/L (136-145); eGFR For African Americans > 60 (> 60); eGFR For Non-African Americans > 60 (> 60)
--- NOTE | 2019-03-01 07:21 | Internal Med Progress Note ---
Hospitalist Progress Note - Encounter Date of Encounter: 03/01/19 Time of Encounter: 08:10 - Subjective Interval History: awake, daughter at bedside. continued improved energy daily. remains on high amount high flow NC but sob cont to improve. no hemoptysis, fevers, chills. no current wheezing, occasional coughing fits - Exam Vitals: Temp Pulse Resp BP Pulse Ox 97.6 F 110 18 112/75 93 03/01/19 07:05 03/01/19 07:05 03/01/19 07:05 03/01/19 07:05 03/01/19 07:05 Exam: gen- alert, awake,appears stated age cv- tachy rate 110ss and reg rhythm, normal s1,s2, no pitting le edema lungs- diminished right post hernandez, otherwise ctabl no wheezing, rhonchi or c rackles, normal resp effort on hihg flow NC neuro- AAOx3, CN grossly intact - Assessment and Plan (1) Acute and chronic respiratory failure with hypoxia Current Visit: No Status: Acute (2) Pneumothorax on right Current Visit: Yes Status: Acute (3) Acute exacerbation of chronic obstructive airways disease Current Visit: Yes Status: Acute (4) Heart failure with preserved ejection fraction Current Visit: Yes Status: Chronic (5) Lesion of lung Current Visit: Yes Status: Chronic (6) Sinus tachycardia Current Visit: Yes Status: Acute (7) Cavitary pneumonia Current Visit: No Status: Acute - Summary of Assessment and Plan Summary of Assessment and Plan: Nany Peck is a 73 F w hx severe COPD on 5L c/b fibrosis and bronchiectasis, RLL cavitary lesion suspicious for abscess v malignancy, HFpEF, CAD s/p stents, HTN, MVP, anxiety, who on 02/10 p/w progressive SOB, productive cough w sputum color change, and fever, found to have elevated HR and RR, hypoxia, lactate 2.4, and CT showing possible acute infiltrates, concerning for CAP causing sepsis and COPD exacerbation leading to acute on chronic hypoxic respiratory failure. Hospital course c/b acute pneumothorax requiring chest tube placement on 02/14, which was exchanged on 02/18 for larger tube due to increasing PTX and persistent air leak. Pt did undergo CT guided lung biopsy of cavitary lesion on 02/15 with results pending. Persistent air leak and PTX. Underwent blood patch with IR 02/23. Pneumothorax: intermittent s/p blood patch requiring continued chest tube -Pulm managing -chest tube remains in place to wall suction -Pulm has d/w CT surgery as she will likely need heimlich valve, she is not a surgical candidate -Pulm and CT surgery have yet to comment on final plan, cont to follow Suspected Pneumonia, organism unknown RLL Cavitary lung lesion: s/p CT guided lung biopsy 02/15, per Pulm suspicious for abscess but micro no growth and awaiting path. Fungal labs show positive F ungitell (b-D-glucan) which was previously positive, and galactomannan now positive however pt currently on Zosyn and thus possibly false positive, CompFix w Aspergillus ab positive 1:16 and histo weakly positive 1:8 - ID following, cont zosyn, added vorconizole 02/24 -ID rec is for transfer to [facility] for second opinion which she is declining Sepsis: clinically not septic in appearance, although remains persistently SIRS 2/4 - Leukocytosis: persistently elevated, possible fungal infection - Tachycardia: lopressor 50 bid pt remains mildly tachycardic but low normotensive therefore no addl changes at this time- nebs are xopenex, having pain with chest tube, prn pain control Severe emphysematous COPD: continue nebs home inhalers, and slowly taper prednisone over next 2-3 weeks (decrease pred to 30 on 02/22) Acute on Chronic hypoxic and hypercapneic respiratory failure: home 5L -currently on high flow NC 8-9L -IR intervention as above 02/23, cont to wean as able HFpEF: lasix 40 po daily (home dose is 20-40 daily prn) Severe protein calorie malnutrition: see nutrition notes CAD: home statin, ASA HTN: lopressor as above Anxiety: home celexa 20 daily GERD: H2B bid Chronic Anemia- baseline in recent months 8s-10s, sub q hep resumed at q12 h ppx dosing PPx: sqh Lines: PIV, chest tube Code: [id number] Dispo: patient requires inpatient eval and management at this time. she will need SNF vs LTAC placement pending what final plan with chest tube will be, SW is on board Internal Medicine: Result - Labs CBC & Chem 7: 03/01/19 06:23 03/01/19 06:23 Labs: Short CBC 03/01/19 Range/Units 06:23 WBC 12.4 H (4.3-11.1) K/mcL Hgb 8.2 L (11.5-15.4) g/dL Hct 28.2 L (35.3-44.9) % Plt Count 367 (140-400) K/mcL Neutrophils # 9.8 H (1.6-8.9) K/mcL BMP 03/01/19 06:23 Sodium 138 Potassium 4.6 Chloride 97 L Carbon Dioxide 35 H BUN 27 H Creatinine 0.57 L Glucose 135 H Calcium 9.3 - ABG Interpretation ABG results: ABG ABG pH 7.48 pH Units (7.32-7.45) H 02/13/19 23:42 ABG pCO2 44 mmHg (35-45) 02/13/19 23:42 ABG pO2 62 mmHg (85-104) L 02/13/19 23:42 ABG O2 Saturation 93 % (95-98) L 02/13/19 23:42 PT/INR, D-dimer PT 12.2 Seconds (9.4-12.1) H 03/01/19 06:23 967 ng/mLFEU (0-500) H 02/10/19 17:14 - Impressions Impressions Chest X-Ray 02/28/19 07:00 IMPRESSION: Stable chest. Pigtail right-sided chest tube in unchanged position with small loculated pneumothorax at the right costophrenic angle. Bibasilar airspace disease persists, presumably related to atelectasis. Continued radiographic follow-up recommended. D/ / Madi Nina MD / Madi Nina MD Interpreting Provider: Madi Nina MD Consult Discharge Plan - Plan Referrals: Aren Malik Jr, MD [Primary Care Provider] - (4) Heart failure with preserved ejection fraction Qualifiers: Heart failure chronicity: chronic Qualified Code(s): I50.32 - Chronic diastolic (congestive) heart failure
--- NOTE | 2019-03-01 09:08 | Pulmonology Progress Note ---
<RusselMahnazAlbert A - Last Filed: 03/01/19 11:29> Date of Encounter: 03/01/19 Time of Encounter: 10:00 Assessment and Plan (1) Pneumothorax on right Current Visit: Yes Status: Acute Persistent loculated pneumonothorax on the right with most recent CXR from 02/28/19 Chest tube remains in place on continuous suction at this time (2) Acute exacerbation of chronic obstructive airways disease Current Visit: Yes Status: Acute Improving Wean supplemental O2 as tolerated Continue Ipratropium and Xopenex scheduled nebs On day 14 of glucocorticoid therapy, will require prolonged taper - Will de- escalate to 20mg Prednisone daily (3) Cavitary lesion of lung Current Visit: Yes Status: Chronic S/p CT guided biopsy from 02/15/19 Likely to be abscess Pathology from biopsy was negative for malignancy but did demonstrate mild chronic inflammation Sputum culture positive for fungal elements Respiratory culture was negative Respiratory fungal culture still pending ID is on board - appreciate recommendations Abx and antifungals per ID recs Zosyn Day 19 Voriconazole Day 6 Subjective Principal diagnosis: Dyspnea Interval history: Pt seen and examined at bedside. No acute events overnight. States she feels her shortness of breath is improved, but states she feels very weak and the dyspnea worsens on ambulation. Objective PUL Vital signs: Last Vital Signs Temp 97.6 F 03/01/19 07:05 Pulse 110 03/01/19 07:05 Resp 18 03/01/19 07:05 BP 112/75 03/01/19 07:05 Pulse Ox 93 03/01/19 07:05 General appearance: no acute distress, alert Eyes: nonicteric ENT: oropharynx moist Neck: supple, no JVD Effort: normal Auscultation: left: clear (right upper clear as well ), right: diminished breath sounds (base ) Cardiovascular: regular rate and rhythm Gastrointestinal: soft, non-tender, non-distended Integumentary: normal Extremities: no cyanosis, no edema, no clubbing, pink and warm, pulses normal Musculoskeletal: no deformities normal mental status, non-focal exam, pupils equal and round mood appropriate, affect normal Results - Laboratory Findings CBC and BMP: 03/01/19 06:23 03/01/19 06:23 ABG ABG pH 7.48 pH Units (7.32-7.45) H 02/13/19 23:42 ABG pCO2 44 mmHg (35-45) 02/13/19 23:42 ABG pO2 62 mmHg (85-104) L 02/13/19 23:42 ABG O2 Saturation 93 % (95-98) L 02/13/19 23:42 PT/INR, D-dimer PT 12.2 Seconds (9.4-12.1) H 03/01/19 06:23 967 ng/mLFEU (0-500) H 02/10/19 17:14 Abnormal lab findings: Abnormal lab results WBC 12.4 K/mcL (4.3-11.1) H 03/01/19 06:23 RBC 2.92 M/mcL (3.82-4.97) L 03/01/19 06:23 Hgb 8.2 g/dL (11.5-15.4) L 03/01/19 06:23 Hct 28.2 % (35.3-44.9) L 03/01/19 06:23 MCHC 29.1 g/dL (31.6-35.5) L 03/01/19 06:23 RDW 16.0 % (11.5-14.5) H 03/01/19 06:23 Plt Count 423 K/mcL (140-400) H 02/27/19 05:30 9.8 K/mcL (1.6-8.9) H 03/01/19 06:23 0.4 K/mcL (0.6-4.6) L 02/13/19 03:02 1.4 K/mcL (0.0-1.3) H 02/27/19 05:30 Nucleated RBCs/100 WBC 0.2 /100 WBC (0) H 03/01/19 06:23 Slight increase (Normal) H 02/18/19 12:35 1+ (Not Present) A 02/25/19 03:30 ESR 118 mm/hr (0-15) H 02/22/19 04:15 PT 12.2 Seconds (9.4-12.1) H 03/01/19 06:23 967 ng/mLFEU (0-500) H 02/10/19 17:14 ABG pH 7.48 pH Units (7.32-7.45) H 02/13/19 23:42 ABG pO2 62 mmHg (85-104) L 02/13/19 23:42 ABG HCO3 33 mEq/L (21-27) H 02/13/19 23:42 ABG Total CO2 34 mEq/L (20-26) H 02/13/19 23:42 ABG O2 Saturation 93 % (95-98) L 02/13/19 23:42 ABG Base Excess 8 mEq/L (-2 to 3) H 02/13/19 23:42 Sodium 134 mEq/L (136-145) L 02/27/19 05:30 Potassium 5.3 mEq/L (3.5-5.1) H 02/20/19 05:30 Chloride 97 mEq/L (98-107) L 03/01/19 06:23 Carbon Dioxide 35 mEq/L (23-29) H 03/01/19 06:23 BUN 27 mg/dL (8-23) H 03/01/19 06:23 0.57 mg/dL (0.60-1.20) L 03/01/19 06:23 47 (6-26) H 03/01/19 06:23 Glucose 135 mg/dL (70-105) H 03/01/19 06:23 POC Glucose 173 mg/dL (70-99) H 02/25/19 00:49 306 (280-300) H 02/15/19 04:20 Lactic Acid 2.4 mmol/L (0.5-2.2) H 02/10/19 17:34 Calcium 10.4 mg/dL (8.6-10.3) H 02/20/19 05:30 Phosphorus 2.5 mg/dL (2.7-4.5) L 02/22/19 04:15 97 mg/L (Less than 10) H 02/22/19 04:15 B-Natriuretic Peptide 512 pg/mL (Less than 100) H 02/13/19 03:02 5.9 g/dL (6.4-8.9) L 02/24/19 05:43 3.1 g/dL (3.5-5.7) L 02/27/19 05:30 0.9 (1.1-2.2) L 02/27/19 05:30 Trace-intact (Negative) H 02/10/19 23:52 Ur Squamous Epith Cells Moderate per lpf (None-Few) H 02/10/19 23:52 Histoplasma Yeast Ab CF 1:8 (<1:8) H 02/17/19 10:35 Aspergillus Ab (CompFix) 1:16 (<1:8) H 02/17/19 10:35 A. galactomannan Ag POSITIVE (Negative) A 02/17/19 10:35 B-(1,3)-D-Glucan Intrp POSITIVE (Negative) A 02/17/19 10:35 - Microbiology Findings Microbiology Findings: Microbiology, Last 48 Hours 02/19/19 05:05 Blood Fungal Culture - Final Peripheral Venipuncture No growth. Final report. - Clinical Findings Intake & Output: Intake & Output 02/28/19 03/01/19 03/01/19 23:59 07:59 15:59 Intake Total 160 / 600 100 / 100 Output Total 155 / 480 300 / 300 Balance 5 / 120 -200 / -200 Weight 65.2 kg Consult Discharge Plan - Plan Referrals: Aren Malik Jr, MD [Primary Care Provider] - <Liliam Russell - Last Filed: 03/01/19 16:40> Date of Encounter: 03/01/19 Assessment and Plan (1) Pneumothorax on right Current Visit: Yes Status: Acute (2) Cavitary lesion of lung Current Visit: Yes Status: Chronic (3) Acute and chronic respiratory failure with hypoxia Current Visit: No Status: Acute (4) Cavitary pneumonia Current Visit: Yes Status: Chronic (5) Pneumonia Current Visit: Yes Status: Acute Qualifiers: Pneumonia type: due to unspecified organism Laterality: bilateral Lung location: unspecified part of lung Qualified Code(s): J18.9 - Pneumonia, uns pecified organism Objective PUL Vital signs: Last Vital Signs Temp 98.3 F 03/01/19 15:18 Pulse 105 03/01/19 15:18 Resp 18 03/01/19 16:15 BP 104/67 03/01/19 15:18 Pulse Ox 95 03/01/19 16:15 Results - Laboratory Findings CBC and BMP: 03/01/19 06:23 03/01/19 06:23 ABG ABG pH 7.48 pH Units (7.32-7.45) H 02/13/19 23:42 ABG pCO2 44 mmHg (35-45) 02/13/19 23:42 ABG pO2 62 mmHg (85-104) L 02/13/19 23:42 ABG O2 Saturation 93 % (95-98) L 02/13/19 23:42 PT/INR, D-dimer PT 12.2 Seconds (9.4-12.1) H 03/01/19 06:23 967 ng/mLFEU (0-500) H 02/10/19 17:14 Abnormal lab findings: Abnormal lab results WBC 12.4 K/mcL (4.3-11.1) H 03/01/19 06:23 RBC 2.92 M/mcL (3.82-4.97) L 03/01/19 06:23 Hgb 8.2 g/dL (11.5-15.4) L 03/01/19 06:23 Hct 28.2 % (35.3-44.9) L 03/01/19 06:23 MCHC 29.1 g/dL (31.6-35.5) L 03/01/19 06:23 RDW 16.0 % (11.5-14.5) H 03/01/19 06:23 Plt Count 423 K/mcL (140-400) H 02/27/19 05:30 9.8 K/mcL (1.6-8.9) H 03/01/19 06:23 0.4 K/mcL (0.6-4.6) L 02/13/19 03:02 1.4 K/mcL (0.0-1.3) H 02/27/19 05:30 Nucleated RBCs/100 WBC 0.2 /100 WBC (0) H 03/01/19 06:23 Slight increase (Normal) H 02/18/19 12:35 1+ (Not Present) A 02/25/19 03:30 ESR 118 mm/hr (0-15) H 02/22/19 04:15 PT 12.2 Seconds (9.4-12.1) H 03/01/19 06:23 967 ng/mLFEU (0-500) H 02/10/19 17:14 ABG pH 7.48 pH Units (7.32-7.45) H 02/13/19 23:42 ABG pO2 62 mmHg (85-104) L 02/13/19 23:42 ABG HCO3 33 mEq/L (21-27) H 02/13/19 23:42 ABG Total CO2 34 mEq/L (20-26) H 02/13/19 23:42 ABG O2 Saturation 93 % (95-98) L 02/13/19 23:42 ABG Base Excess 8 mEq/L (-2 to 3) H 02/13/19 23:42 Sodium 134 mEq/L (136-145) L 02/27/19 05:30 Potassium 5.3 mEq/L (3.5-5.1) H 02/20/19 05:30 Chloride 97 mEq/L (98-107) L 03/01/19 06:23 Carbon Dioxide 35 mEq/L (23-29) H 03/01/19 06:23 BUN 27 mg/dL (8-23) H 03/01/19 06:23 0.57 mg/dL (0.60-1.20) L 03/01/19 06:23 47 (6-26) H 03/01/19 06:23 Glucose 135 mg/dL (70-105) H 03/01/19 06:23 POC Glucose 173 mg/dL (70-99) H 02/25/19 00:49 306 (280-300) H 02/15/19 04:20 Lactic Acid 2.4 mmol/L (0.5-2.2) H 02/10/19 17:34 Calcium 10.4 mg/dL (8.6-10.3) H 02/20/19 05:30 Phosphorus 2.5 mg/dL (2.7-4.5) L 02/22/19 04:15 97 mg/L (Less than 10) H 02/22/19 04:15 B-Natriuretic Peptide 512 pg/mL (Less than 100) H 02/13/19 03:02 5.9 g/dL (6.4-8.9) L 02/24/19 05:43 3.1 g/dL (3.5-5.7) L 02/27/19 05:30 0.9 (1.1-2.2) L 02/27/19 05:30 Trace-intact (Negative) H 02/10/19 23:52 Ur Squamous Epith Cells Moderate per lpf (None-Few) H 02/10/19 23:52 Histoplasma Yeast Ab CF 1:8 (<1:8) H 02/17/19 10:35 Aspergillus Ab (CompFix) 1:16 (<1:8) H 02/17/19 10:35 A. galactomannan Ag POSITIVE (Negative) A 02/17/19 10:35 B-(1,3)-D-Glucan Intrp POSITIVE (Negative) A 02/17/19 10:35 - Microbiology Findings Microbiology Findings: Microbiology, Last 48 Hours 02/19/19 05:05 Blood Fungal Culture - Final Peripheral Venipuncture No growth. Final report. - Clinical Findings Intake & Output: Intake & Output 03/01/19 03/01/19 03/01/19 07:59 15:59 23:59 Intake Total 100 / 560 460 / 560 Output Total 300 / 300 Balance -200 / 260 460 / 260 Weight 65.2 kg - Attending Attestation I examined this patient and my medical decision-making was reviewed with the Resident Physician. I agree with the documented findings, disposition and treatment plan as described except to the extent set forth below. Patient seen and examined. Labs, radiology, chart personally reviewed. Agree with resident's history and physical, assessment, plan with following comments: [employer]: Patient follows commands, Pulmonary: Acceptable oxygenation and ventilation and continuing to wean off FiO2 to keep SPO2 around 90%. Extensive discussion with the patient again and family at the bedside in the presence of the nurse that most likely she will need prolonged chest tube because of her advanced lung disease and social human services assistants hopefully to arrange transfer to a facility that they can take care of the chest tube such as LTAC. Infectious disease is still following With the patient. Mobilization and rehabilitation is still important given to patient has chest tube. I have answered all their questions and please call for any questions.
[2019-03-01] MEDS: Loratadine 10 MG TABLET PO SCH (09:57)
[2019-03-01] MEDS: Furosemide 40 MG TABLET PO SCH (09:57)
[2019-03-01] MEDS: predniSONE 20 MG TABLET PO SCH (09:57)
[2019-03-01] MEDS: Lactobacillus 1 EACH CAP.SPRINK PO SCH (09:57)
[2019-03-01] MEDS: Aspirin Enteric Coated 81 MG Tablet PO SCH (09:58)
[2019-03-01] MEDS: Magnesium Oxide 400 MG TABLET PO SCH (09:58)
--- NOTE | 2019-03-01 10:28 | Infectious Disease Progress No ---
ID Progress Note Date of Encounter: 03/01/19 Time of Encounter: 10:26 - Subjective Subjective: Patient seen and examined. No acute events noted overnight. Stat post CT-guided lung biopsy 02/15/19. Path negative for malignancy. GMS stain negative for fungal organisms. Status post chest tube exchange 02/18/19. Status post blood patch placement 02/23/19. Repeat CXR shows persistent loculated PTX. The patient states she feels better today. She denies fevers, chills, or rigors. Denies chest pain. Reports pain at the site of the chest tube, but states it is improved. Reports a cough productive of light green/yellow sputum. Reports persistent shortness of breath, worse with exertion, but overall improved. Denies nausea, vomiting, diarrhea, or constipation. States her stools are a little bit loose. Denies abdominal pain or urinary complaints. States her appetite is better. Denies oral thrush or skin rashes. - Objective CBC & Chem 7: 03/02/19 06:08 03/02/19 06:08 - Exam Vitals: Temp Pulse Resp BP Pulse Ox 97.6 F 110 18 112/75 93 03/01/19 07:05 03/01/19 07:05 03/01/19 07:05 03/01/19 07:05 03/01/19 07:05 Exam: Head: Atraumatic, normal inspection, normocephalic. Eye: EOMI, PERRLA, no scleral icterus noted. ENT: Mucous membranes moist. No odontogenic infection noted. Neck: Normal inspection, no meningismus. Respiratory: Coarse crackles throughout. Chest tube noted to the right posterior thorax with scant amount of serous sanguinous drainage noted to water seal. No crepitus. No air leak. Cardiovascular: Regular rate, tachycardiac. S1 and S2 audible. No murmurs, rubs, or gallops. GI: Soft, nondistended, normal bowel sounds. Extremities: No joint swelling, pedal edema, or tenderness noted. Neurological: Alert, oriented 3, no focal deficits. Psychiatric: normal affect, normal mood. Skin: Dry, intact, warm. Normal color. No rashes. - Assessment and Plan (1) Sepsis Current Visit: No Status: Acute The patient had 3 sepsis criteria on admission. Likely secondary to pneumonia. Improved. WBC remains elevated, likely secondary to steroids, but improved. Continues to have tachypnea and tachycardia. She has been afebrile. Blood cultures drawn 02/10/19 are negative 2 sets. Peripheral smear is negative for toxic granules or Dohle bodies. Qualifiers: Sepsis type: sepsis due to unspecified organism Qualified Code(s): A41.9 - Sepsis, unspecified organism SNOMED Code(s): 61748880 (2) Leukocytosis Current Visit: Yes Status: Acute Likely reactive secondary to steroids. Clinically improved. Peripheral smear negative for toxic granules or Dohle bodies. Procalcitonin negative. Continue to trend. Qualifiers: Leukocytosis type: unspecified Qualified Code(s): D72.829 - Elevated white blood cell count, unspecified SNOMED Code(s): 235637907, 122039562 (3) Healthcare-associated pneumonia Current Visit: Yes Status: Acute Location: Right base. Causative organism: Unclear. CT of the chest revealed a right basilar infiltrate concerning for aspiration pneumonia versus other. MRSA screen was negative. Strep pneumococcal and legionella urinary antigens were negative. Respiratory infectious panel was negative. Sputum culture is positive for aspergillus fumigatus. Fungitell and Asp. galactomannan positive, however the patient has been on Zosyn which could cause a false-positive Asp. galactomannan. Biopsy pathology negative for malignancy. GMS stain negative for fungal elements. Procalcitonin 0.03. Currently on IV Zosyn (day 19). SNOMED Code(s): 481819792, 620538589 (4) Pneumothorax on right Current Visit: Yes Status: Acute Chest x-ray completed 02/14/19 revealed a large right-sided pneumothorax. Status post chest tube placement 02/14/19 by the acute care surgery team. Repeat chest x-ray shows a possible trace right apical pneumothorax. Chest x-ray 02/16/19 shows a mild right pneumothorax that is mildly decreased as well as findings consistent with COPD and stable bibasilar consolidations. Repeat chest x-ray 02/17/19 shows resolution of the right-sided pneumothorax and continued bibasilar opacities with new evidence of intra-fissural fluid on the right. Status post chest tube exchange 02/18/19, after which chest tube was clamped and patient developed worsening of PTX. Serial CXRs showed improvement, but persistent PTX. Status post blood patch placement 02/23/19 by interventional radiology. Repeat chest x-ray post-procedure negative for pneumothorax. CXR 02/25/19 showed stable small PTX. Repeat CXR 02/28/19 again shows loculated apical PTX. CTS consulted. States patient will need long-term chest tube. Management per the pulmonary and CTS teams. SNOMED Code(s): 798276607 (5) Acute respiratory failure Current Visit: Yes Status: Acute Likely multifactorial: Pneumonia, COPD, pulmonary fibrosis, bronchiectasis, cavitary lung lesion, and pneumothorax. O2 demands remain high. She is currently on nasal cannula at 8LPM. Still dyspneic on exertion, but better. Pulmonology consulted and following. Qualifiers: Respiratory failure complication: hypoxia Qualified Code(s): J96.01 - Acute respiratory failure with hypoxia SNOMED Code(s): 29554069 (6) Cavitary lesion of lung Current Visit: Yes Status: Chronic First seen in 11/11/2018. Extensive workup including for TB, fungal element were all negative. Status post bronchoscopy 11/15/2018 and 12/13/2018. Both were also nonrevealing. Cultures were negative. Fungal cultures and AFB were negative. And flow cytometry were almost negative. Patient was treated with 8 weeks of Augmentin and doxycycline with no improvement whatsoever. High index of suspicion for malignancy. Fungitell and Aspergillus galactomannan positive. Sputum culture positive for Aspergillus fumigatus. Status post CT-guided biopsy 02/15/19. Cultures are negative. Fungal cultures no growth. AFB negative. Biopsy pathology negative for malignancy. GMS stain negative for fungal elements. The patient has declined transfer for a second opinion. Currently on Zosyn (day 19). SNOMED Code(s): 908359871 (7) Pulmonary fibrosis Current Visit: Yes Status: Chronic SNOMED Code(s): 16274572 (8) CAD (coronary artery disease) Current Visit: Yes Status: Chronic Qualifiers: Coronary Disease-Associated Artery/Lesion type: [place] artery [place] vs. transplanted heart: unspecified whether [place] or transplanted heart Associated angina: without angina Qualified Code(s): I25.10 - Atherosclerotic heart disease of [place] coronary artery without angina pectoris SNOMED Code(s): 41254279 (9) Hyperlipidemia Current Visit: No Status: Acute Qualifiers: Hyperlipidemia type: Mixed hyperlipidemia SNOMED Code(s): 54200763 - Recommendations Recommendations: Continue to trend CBC with differential. Chest tube management per the pulmonology and CTS teams. O2 management per the pulmonology team. Consider transfer to tertiary care center for second opinion. Discussed with the patient, her daughter, and the primary team. Patient declined. Continue Zosyn 3.375 g IV every 8 hours. (Day 19). Continue Voriconazole 200mg PO BID. (day 6) Stop lovastatin while on voriconazole. Check voriconazole 2 weeks after initiation of treatment. Duration of treatment depends on the clinical picture. Monitor renal function and dose adjust antibiotics. Consult Discharge Plan - Plan Referrals: Aren Malik Jr, MD [Primary Care Provider] - - Attending Attestation I have personally performed a face to face evaluation on this patient. I have reviewed and agree with the care plan. History and Exam by me shows: Assessment and plan: 1.Sepsis 2.Leukocytosis 3.Healthcare associated pneumonia 4.Cavitary lung lesion status post biopsy 02/15/2019 5.Pulmonary fibrosis 6.Chronic respiratory failure Recommendations: Continue Zosyn for now. Depending on the CT findings will make further recommendations on the antibiotics Continue voriconazole Monitor LFTs Check voriconazole level in about 2 weeks Patient tells me she is tolerating the voriconazole but she is sensing some side effects Patient going for CT scan right now we will follow-up on the
[2019-03-02] MEDS: Piperacillin/Tazobactam 3.375 GM in 0.9 % Sodium Chloride Mini Bag 100 ML IVPB SCH ×2 (00:08→09:39)
[2019-03-02] MEDS: *HR* OxyCODONE Immed Rel 5 MG TABLET PO PRN (00:08)
[2019-03-02] MEDS: Ondansetron 4 MG/2 ML VIAL IVP PRN (01:49)
[2019-03-02] MEDS: Levalbuterol Neb 0.63 MG/3 ML IH SCH ×4 (03:39→22:34)
[2019-03-02] MEDS: *HR* Heparin 5,000 UNIT/ML VIAL SQ SCH ×2 (06:07→16:32)
[2019-03-02 06:31] LABS: Basophils % 0.1 %; Eosinophils % 0.3 %; Hematocrit 28.6 % (35.3-44.9); Hemoglobin 8.3 g/dL (11.5-15.4); Immature Granulocytes % 0.8 % (0-4); Lymphocytes # 1.1 K/mcL (0.6-4.6); Lymphocytes % 9.5 %; Mean Platelet Volume 11.1 fL (9.4-12.4); Monocytes # 1.1 K/mcL (0.0-1.3); Monocytes % 9.2 %; Neutrophils # 9.6 K/mcL (1.6-8.9); Nucleated Red Blood Cells 0.3 /100 WBC (0); Platelet Count 389 K/mcL (140-400); Red Blood Count 2.86 M/mcL (3.82-4.97); Red Cell Distribution Width 15.9 % (11.5-14.5); Segmented Neutrophils % 80.1 %; White Blood Count 11.9 K/mcL (4.3-11.1)
[2019-03-02 06:49] LABS: BUN/Creatinine Ratio 59 (6-26); Blood Urea Nitrogen 37 mg/dL (8-23); Calcium 9.6 mg/dL (8.6-10.3); Carbon Dioxide 37 mEq/L (23-29); Chloride 95 mEq/L (98-107); Glucose 175 mg/dL (70-105); Osmolality,Calculated 297 (280-300); Potassium 5.1 mEq/L (3.5-5.1); Sodium 137 mEq/L (136-145); eGFR For African Americans > 60 (> 60); eGFR For Non-African Americans > 60 (> 60)
--- NOTE | 2019-03-02 08:31 | Pulmonology Progress Note ---
<Albert Goode - Last Filed: 03/02/19 13:14> Date of Encounter: 03/02/19 Time of Encounter: 10:30 Assessment and Plan (1) Pneumothorax on right Current Visit: Yes Status: Acute Persistent loculated pneumonothorax on the right with most recent CXR from 02/28/19 Chest tube remains in place on right side - turned off suction at 11:30. Plan to clamp at 12:30 and have CXR performed this afternoon. Will follow. Anticipate need for Heimlich valve (2) Acute exacerbation of chronic obstructive airways disease Current Visit: Yes Status: Acute Improving Wean supplemental O2 as tolerated Continue Ipratropium and Xopenex scheduled nebs On day 15 of glucocorticoid therapy, will require prolonged taper - Continue 20mg Prednisone daily (3) Cavitary lesion of lung Current Visit: Yes Status: Chronic S/p CT guided biopsy from 02/15/19 Likely to be abscess Pathology from biopsy was negative for malignancy but did demonstrate mild chronic inflammation Sputum culture positive for fungal elements Respiratory culture was negative Respiratory fungal culture still pending ID is on board - appreciate recommendations Abx and antifungals per ID recs Zosyn Day 20 Voriconazole Day 7 Subjective Principal diagnosis: Dyspnea Interval history: Pt seen and examined at bedside. No acute events overnight. States she feels "about the same as yesterday". Objective PUL Vital signs: Last Vital Signs Temp 97.3 F L 03/02/19 04:36 Pulse 108 03/02/19 07:38 Resp 18 03/02/19 07:38 BP 112/76 03/02/19 07:38 Pulse Ox 97 03/02/19 07:38 General appearance: no acute distress, alert Eyes: nonicteric ENT: oropharynx moist Neck: no JVD Effort: normal Auscultation: left: clear (right upper clear), right: diminished breath sounds (base) Cardiovascular: regular rate and rhythm Gastrointestinal: soft, non-tender, non-distended Integumentary: normal Extremities: no cyanosis, no edema, no clubbing, pink and warm, pulses normal Musculoskeletal: no deformities normal mental status, non-focal exam, pupils equal and round mood appropriate, affect normal Results - Laboratory Findings CBC and BMP: 03/02/19 06:08 03/02/19 06:08 ABG ABG pH 7.48 pH Units (7.32-7.45) H 06/16/19 23:42 ABG pCO2 44 mmHg (35-45) 02/13/19 23:42 ABG pO2 62 mmHg (85-104) L 02/13/19 23:42 ABG O2 Saturation 93 % (95-98) L 02/13/19 23:42 PT/INR, D-dimer PT 12.2 Seconds (9.4-12.1) H 03/01/19 06:23 967 ng/mLFEU (0-500) H 02/10/19 17:14 Abnormal lab findings: Abnormal lab results WBC 11.9 K/mcL (4.3-11.1) H 03/02/19 06:08 RBC 2.86 M/mcL (3.82-4.97) L 03/02/19 06:08 Hgb 8.3 g/dL (11.5-15.4) L 03/02/19 06:08 Hct 28.6 % (35.3-44.9) L 03/02/19 06:08 MCHC 29.0 g/dL (31.6-35.5) L 03/02/19 06:08 RDW 15.9 % (11.5-14.5) H 03/02/19 06:08 Plt Count 423 K/mcL (140-400) H 02/27/19 05:30 9.6 K/mcL (1.6-8.9) H 03/02/19 06:08 0.4 K/mcL (0.6-4.6) L 02/13/19 03:02 1.4 K/mcL (0.0-1.3) H 02/27/19 05:30 Nucleated RBCs/100 WBC 0.3 /100 WBC (0) H 03/02/19 06:08 Slight increase (Normal) H 02/18/19 12:35 1+ (Not Present) A 02/25/19 03:30 ESR 118 mm/hr (0-15) H 02/22/19 04:15 PT 12.2 Seconds (9.4-12.1) H 03/01/19 06:23 967 ng/mLFEU (0-500) H 02/10/19 17:14 ABG pH 7.48 pH Units (7.32-7.45) H 02/13/19 23:42 ABG pO2 62 mmHg (85-104) L 02/13/19 23:42 ABG HCO3 33 mEq/L (21-27) H 02/13/19 23:42 ABG Total CO2 34 mEq/L (20-26) H 02/13/19 23:42 ABG O2 Saturation 93 % (95-98) L 02/13/19 23:42 ABG Base Excess 8 mEq/L (-2 to 3) H 02/13/19 23:42 Sodium 134 mEq/L (136-145) L 02/27/19 05:30 Potassium 5.3 mEq/L (3.5-5.1) H 02/20/19 05:30 Chloride 95 mEq/L (98-107) L 03/02/19 06:08 Carbon Dioxide 37 mEq/L (23-29) H 03/02/19 06:08 BUN 37 mg/dL (8-23) H 03/02/19 06:08 0.57 mg/dL (0.60-1.20) L 03/01/19 06:23 59 (6-26) H 03/02/19 06:08 Glucose 175 mg/dL (70-105) H 03/02/19 06:08 POC Glucose 173 mg/dL (70-99) H 02/25/19 00:49 306 (280-300) H 02/15/19 04:20 Lactic Acid 2.4 mmol/L (0.5-2.2) H 02/10/19 17:34 Calcium 10.4 mg/dL (8.6-10.3) H 02/20/19 05:30 Phosphorus 2.5 mg/dL (2.7-4.5) L 02/22/19 04:15 97 mg/L (Less than 10) H 02/22/19 04:15 B-Natriuretic Peptide 512 pg/mL (Less than 100) H 02/13/19 03:02 5.9 g/dL (6.4-8.9) L 02/24/19 05:43 3.1 g/dL (3.5-5.7) L 02/27/19 05:30 0.9 (1.1-2.2) L 02/27/19 05:30 Trace-intact (Negative) H 02/10/19 23:52 Ur Squamous Epith Cells Moderate per lpf (None-Few) H 02/10/19 23:52 Histoplasma Yeast Ab CF 1:8 (<1:8) H 02/17/19 10:35 Aspergillus Ab (CompFix) 1:16 (<1:8) H 02/17/19 10:35 A. galactomannan Ag POSITIVE (Negative) A 02/17/19 10:35 B-(1,3)-D-Glucan Intrp POSITIVE (Negative) A 02/17/19 10:35 - Microbiology Findings Microbiology Findings: Microbiology, Last 48 Hours 02/19/19 05:05 Blood Fungal Culture - Final Peripheral Venipuncture No growth. Final report. - Clinical Findings Intake & Output: Intake & Output 03/01/19 03/02/19 03/02/19 23:59 07:59 15:59 Intake Total 220 / 780 100 / 100 Output Total 650 / 950 250 / 250 Balance -430 / -170 -150 / -150 Weight 64 kg Consult Discharge Plan - Plan Referrals: Aren Malik Jr, MD [Primary Care Provider] - <Yael Arriaga - Last Filed: 03/02/19 18:02> Date of Encounter: 03/02/19 Assessment and Plan (1) Acute and chronic respiratory failure with hypoxia Current Visit: No Status: Acute (2) Pneumothorax on right Current Visit: Yes Status: Acute (3) Cavitary lesion of lung Current Visit: Yes Status: Chronic Objective PUL Vital signs: Last Vital Signs Temp 97.3 F L 03/02/19 04:36 Pulse 100 03/02/19 11:43 Resp 17 03/02/19 11:43 BP 106/71 03/02/19 11:43 Pulse Ox 94 03/02/19 11:43 Results - Laboratory Findings CBC and BMP: 03/02/19 06:08 03/02/19 06:08 ABG ABG pH 7.48 pH Units (7.32-7.45) H 02/13/19 23:42 ABG pCO2 44 mmHg (35-45) 02/13/19 23:42 ABG pO2 62 mmHg (85-104) L 02/13/19 23:42 ABG O2 Saturation 93 % (95-98) L 02/13/19 23:42 PT/INR, D-dimer PT 12.2 Seconds (9.4-12.1) H 03/01/19 06:23 967 ng/mLFEU (0-500) H 02/10/19 17:14 Abnormal lab findings: Abnormal lab results WBC 11.9 K/mcL (4.3-11.1) H 03/02/19 06:08 RBC 2.86 M/mcL (3.82-4.97) L 03/02/19 06:08 Hgb 8.3 g/dL (11.5-15.4) L 03/02/19 06:08 Hct 28.6 % (35.3-44.9) L 03/02/19 06:08 MCHC 29.0 g/dL (31.6-35.5) L 03/02/19 06:08 RDW 15.9 % (11.5-14.5) H 03/02/19 06:08 Plt Count 423 K/mcL (140-400) H 02/27/19 05:30 9.6 K/mcL (1.6-8.9) H 03/02/19 06:08 0.4 K/mcL (0.6-4.6) L 02/13/19 03:02 1.4 K/mcL (0.0-1.3) H 02/27/19 05:30 Nucleated RBCs/100 WBC 0.3 /100 WBC (0) H 03/02/19 06:08 Slight increase (Normal) H 02/18/19 12:35 1+ (Not Present) A 02/25/19 03:30 ESR 118 mm/hr (0-15) H 02/22/19 04:15 PT 12.2 Seconds (9.4-12.1) H 03/01/19 06:23 967 ng/mLFEU (0-500) H 02/10/19 17:14 ABG pH 7.48 pH Units (7.32-7.45) H 02/13/19 23:42 ABG pO2 62 mmHg (85-104) L 02/13/19 23:42 ABG HCO3 33 mEq/L (21-27) H 02/13/19 23:42 ABG Total CO2 34 mEq/L (20-26) H 02/13/19 23:42 ABG O2 Saturation 93 % (95-98) L 02/13/19 23:42 ABG Base Excess 8 mEq/L (-2 to 3) H 02/13/19 23:42 Sodium 134 mEq/L (136-145) L 02/27/19 05:30 Potassium 5.3 mEq/L (3.5-5.1) H 02/20/19 05:30 Chloride 95 mEq/L (98-107) L 03/02/19 06:08 Carbon Dioxide 37 mEq/L (23-29) H 03/02/19 06:08 BUN 37 mg/dL (8-23) H 03/02/19 06:08 0.57 mg/dL (0.60-1.20) L 03/01/19 06:23 59 (6-26) H 03/02/19 06:08 Glucose 175 mg/dL (70-105) H 03/02/19 06:08 POC Glucose 173 mg/dL (70-99) H 02/25/19 00:49 306 (280-300) H 02/15/19 04:20 Lactic Acid 2.4 mmol/L (0.5-2.2) H 02/10/19 17:34 Calcium 10.4 mg/dL (8.6-10.3) H 02/20/19 05:30 Phosphorus 2.5 mg/dL (2.7-4.5) L 02/22/19 04:15 97 mg/L (Less than 10) H 02/22/19 04:15 B-Natriuretic Peptide 512 pg/mL (Less than 100) H 02/13/19 03:02 5.9 g/dL (6.4-8.9) L 02/24/19 05:43 3.1 g/dL (3.5-5.7) L 02/27/19 05:30 0.9 (1.1-2.2) L 02/27/19 05:30 Trace-intact (Negative) H 02/10/19 23:52 Ur Squamous Epith Cells Moderate per lpf (None-Few) H 02/10/19 23:52 Histoplasma Yeast Ab CF 1:8 (<1:8) H 02/17/19 10:35 Aspergillus Ab (CompFix) 1:16 (<1:8) H 02/17/19 10:35 A. galactomannan Ag POSITIVE (Negative) A 02/17/19 10:35 B-(1,3)-D-Glucan Intrp POSITIVE (Negative) A 02/17/19 10:35 - Microbiology Findings Microbiology Findings: Microbiology, Last 48 Hours 02/19/19 05:05 Blood Fungal Culture - Final Peripheral Venipuncture No growth. Final report. - Clinical Findings Intake & Output: Intake & Output 03/01/19 03/02/19 03/02/19 23:59 07:59 15:59 Intake Total 220 / 780 100 / 340 240 / 340 Output Total 650 / 950 250 / 450 200 / 450 Balance -430 / -170 -150 / -110 40 / -110 Weight 64 kg - Attending Attestation I saw and evaluated this patient and my medical decision-making was reviewed with the Resident Physician. I agree with the documented findings, disposition and treatment plan as described except to the extent set forth below. We independently had [id number] contact with the patient Patient seen and examined at bedside Labs, radiology, chart personally reviewed. Patient with chest tube drainage with the right-sided persistent pneumothorax revealed a blood patch pulmonary team discuss with the cardiothoracic surgeon looks like patient might need the chest tube for a long time discussions were made to put her in long-term acute care facility will do clamping trial and repeat a chest x-ray. Social work to continue working on and get a long-term acute care placement. With this extensive disease this pneumothorax can be persistent.
[2019-03-02] MEDS: Aspirin Enteric Coated 81 MG Tablet PO SCH (09:39)
[2019-03-02] MEDS: Loratadine 10 MG TABLET PO SCH (09:39)
[2019-03-02] MEDS: predniSONE 20 MG TABLET PO SCH (09:39)
[2019-03-02] MEDS: Lactobacillus 1 EACH CAP.SPRINK PO SCH (09:39)
[2019-03-02] MEDS: Furosemide 40 MG TABLET PO SCH (09:39)
[2019-03-02] MEDS: Magnesium Oxide 400 MG TABLET PO SCH (09:39)
--- NOTE | 2019-03-02 11:09 | Infectious Disease Progress No ---
ID Progress Note Date of Encounter: 03/02/19 Time of Encounter: 11:07 - Subjective Subjective: Patient seen and examined. No acute events noted overnight. Stat post CT-guided lung biopsy 02/15/19. Path negative for malignancy. GMS stain negative for fungal organisms. Status post chest tube exchange 02/18/19. Status post blood patch placement 02/23/19. Repeat CXR shows persistent loculated PTX. The patient states she feels better today. She denies fevers, chills, or rigors. Denies chest pain. Reports pain at the site of the chest tube, but states it is improved. Reports a cough productive of light green/yellow sputum. Reports persistent shortness of breath, worse with exertion, but overall improved. Denies nausea, vomiting, diarrhea, or constipation. States her stools are a little bit loose. Denies abdominal pain or urinary complaints. States her appetite is not as good today. Denies oral thrush or skin rashes. - Objective CBC & Chem 7: 03/02/19 06:08 03/02/19 06:08 - Exam Vitals: Temp Pulse Resp BP Pulse Ox 97.3 F L 108 16 112/76 90 03/02/19 04:36 03/02/19 07:38 03/02/19 10:29 03/02/19 07:38 03/02/19 10:29 Exam: Head: Atraumatic, normal inspection, normocephalic. Eye: EOMI, PERRLA, no scleral icterus noted. ENT: Mucous membranes moist. No odontogenic infection noted. Neck: Normal inspection, no meningismus. Respiratory: Coarse crackles throughout. Chest tube noted to the right posterior thorax with scant amount of serous sanguinous drainage noted to water seal. No crepitus. No air leak. Cardiovascular: Regular rate, tachycardiac. S1 and S2 audible. No murmurs, rubs, or gallops. GI: Soft, nondistended, normal bowel sounds. Extremities: No joint swelling, pedal edema, or tenderness noted. Neurological: Alert, oriented 3, no focal deficits. Psychiatric: normal affect, normal mood. Skin: Dry, intact, warm. Normal color. No rashes. - Assessment and Plan (1) Sepsis Current Visit: No Status: Acute The patient had 3 sepsis criteria on admission. Likely secondary to pneumonia. Improved. WBC remains elevated, likely secondary to steroids, but improved. Continues to have tachypnea and tachycardia. She has been afebrile. Blood cultures drawn 02/10/19 are negative 2 sets. Peripheral smear is negative for toxic granules or Dohle bodies. Qualifiers: Sepsis type: sepsis due to unspecified organism Qualified Code(s): A41.9 - Sepsis, unspecified organism SNOMED Code(s): 34108623 (2) Leukocytosis Current Visit: Yes Status: Acute Likely reactive secondary to steroids. Clinically improved. Peripheral smear negative for toxic granules or Dohle bodies. Procalcitonin negative. Continue to trend. Qualifiers: Leukocytosis type: unspecified Qualified Code(s): D72.829 - Elevated white blood cell count, unspecified SNOMED Code(s): 636477053, 199307368 (3) Healthcare-associated pneumonia Current Visit: Yes Status: Acute Location: Right base. Causative organism: Unclear. CT of the chest revealed a right basilar infiltrate concerning for aspiration pneumonia versus other. MRSA screen was negative. Strep pneumococcal and legionella urinary antigens were negative. Respiratory infectious panel was negative. Sputum culture is positive for aspergillus fumigatus. Fungitell and Asp. galactomannan positive, however the patient has been on Zosyn which could cause a false-positive Asp. galactomannan. Biopsy pathology negative for malignancy. GMS stain negative for fungal elements. Procalcitonin 0.03. Currently on IV Zosyn (day 20). SNOMED Code(s): 105948597, 732332369 (4) Pneumothorax on right Current Visit: Yes Status: Acute Chest x-ray completed 02/14/19 revealed a large right-sided pneumothorax. Status post chest tube placement 02/14/19 by the acute care surgery team. Repeat chest x-ray shows a possible trace right apical pneumothorax. Chest x-ray 02/16/19 shows a mild right pneumothorax that is mildly decreased as well as findings consistent with COPD and stable bibasilar consolidations. Repeat chest x-ray 02/17/19 shows resolution of the right-sided pneumothorax and continued bibasilar opacities with new evidence of intra-fissural fluid on the right. Status post chest tube exchange 02/18/19, after which chest tube was clamped and patient developed worsening of PTX. Serial CXRs showed improvement, but persistent PTX. Status post blood patch placement 02/23/19 by interventional radiology. Repeat chest x-ray post-procedure negative for pneumothorax. CXR 02/25/19 showed stable small PTX. Repeat CXR 02/28/19 again shows loculated apical PTX. CTS consulted. States patient will need long-term chest tube. Management per the pulmonary and CTS teams. SNOMED Code(s): 839966585 (5) Acute respiratory failure Current Visit: Yes Status: Acute Likely multifactorial: Pneumonia, COPD, pulmonary fibrosis, bronchiectasis, cavitary lung lesion, and pneumothorax. O2 demands remain high. She is currently on nasal cannula at 8LPM. Still dyspneic on exertion, but better. Pulmonology consulted and following. Qualifiers: Respiratory failure complication: hypoxia Qualified Code(s): J96.01 - Acute respiratory failure with hypoxia SNOMED Code(s): 92138300 (6) Cavitary lesion of lung Current Visit: Yes Status: Chronic First seen in 11/11/2018. Extensive workup including for TB, fungal element were all negative. Status post bronchoscopy 11/15/2018 and 12/13/2018. Both were also nonrevealing. Cultures were negative. Fungal cultures and AFB were negative. And flow cytometry were almost negative. Patient was treated with 8 weeks of Augmentin and doxycycline with no improvement whatsoever. High index of suspicion for malignancy. Fungitell and Aspergillus galactomannan positive. Sputum culture positive for Aspergillus fumigatus. Status post CT-guided biopsy 02/15/19. Cultures are negative. Fungal cultures no growth. AFB negative. Biopsy pathology negative for malignancy. GMS stain negative for fungal elements. The patient has declined transfer for a second opinion. Currently on Zosyn (day 20). SNOMED Code(s): 124712612 (7) Pulmonary fibrosis Current Visit: Yes Status: Chronic SNOMED Code(s): 30467289 (8) CAD (coronary artery disease) Current Visit: Yes Status: Chronic Qualifiers: Coronary Disease-Associated Artery/Lesion type: [place] artery [place] vs. transplanted heart: unspecified whether [place] or transplanted heart Associated angina: without angina Qualified Code(s): I25.10 - Atherosclerotic heart disease of [place] coronary artery without angina pectoris SNOMED Code(s): 57241921 (9) Hyperlipidemia Current Visit: No Status: Acute Qualifiers: Hyperlipidemia type: Mixed hyperlipidemia SNOMED Code(s): 96526170 - Recommendations Recommendations: Continue to trend CBC with differential. Chest tube management per the pulmonology and CTS teams. O2 management per the pulmonology team. Consider transfer to tertiary care center for second opinion. Discussed with the patient, her daughter, and the primary team. Patient declined. Discontinue Zosyn. Start Augmentin 875mg PO BID. Continue Voriconazole 200mg PO BID. (day 7) Stop lovastatin while on voriconazole. Check voriconazole 2 weeks after initiation of treatment. Duration of treatment depends on the clinical picture. Monitor renal function and dose adjust antibiotics. Consult Discharge Plan - Plan Referrals: Aren Malik Jr, MD [Primary Care Provider] - - Attending Attestation I have personally performed a face to face evaluation on this patient. I have reviewed and agree with the care plan. History and Exam by me shows: Assessment and plan: 1.Sepsis 2.Leukocytosis 3.Healthcare associated pneumonia 4.Cavitary lung lesion status post biopsy 02/15/2019 5.Pulmonary fibrosis 6.Chronic respiratory failure Recommendations: Patient has the chest tube clamped awaiting for 3 PM to repeat x-ray Patient seems to be feeling great on the voriconazole Stop the Zosyn Start Augmentin Await placement Duration of treatment depends on the clinical picture but I believe Augmentin will be on for a good 4-6 weeks and the voriconazole maybe 6-12 months
--- NOTE | 2019-03-02 17:03 | Internal Med Progress Note ---
Hospitalist Progress Note - Encounter Date of Encounter: 03/02/19 Time of Encounter: 10:00 - Subjective Interval History: Patient was seen this exam. No major events overnight. Denied any chest pain however she is a little short of breath. She reported improvement in her breathing. Her chest tube was clamped today and follow-up chest x-ray was done. - Exam Vitals: Temp Pulse Resp BP Pulse Ox 97.3 F L 100 17 106/71 94 03/02/19 04:36 03/02/19 11:43 03/02/19 11:43 03/02/19 11:43 03/02/19 11:43 Exam: Gen.: Alert and oriented 3 - Head Head exam: Present: atraumatic, normocephalic - ENT ENT exam: Present: normal exam - Respiratory Diminished lung sounds bilaterally, right-sided chest tube - Cardiovascular Cardiovascular exam: Present: RRR, +S1, +S2. Absent: diastolic murmur, gallop, rubs, systolic murmur - GI/Abdominal GI/Abdominal exam: Present: normal bowel sounds, soft, no peritoneal signs. Absent: distended, tenderness - Extremities Exam Extremities exam: Present: full ROM, normal capillary refill, warm, radial pulses palpable and symmetrical. Absent: calf tenderness, cyanotic, pedal edema - Neurological Exam Neurological exam: Present: CN II-XII intact, oriented X3, no focal deficits. Absent: pronater drift, facial droop, speech deficit - Psychiatric Psychiatric exam: Present: normal affect, normal mood - Assessment and Plan (1) Cavitary lesion of lung Current Visit: Yes Status: Chronic Assessment and Plan: (2) Pneumothorax on right Current Visit: Yes Status: Acute (3) Acute exacerbation of chronic obstructive airways disease Current Visit: Yes Status: Acute - Summary of Assessment and Plan Summary of Assessment and Plan: Nany Peck is a 73 F w hx severe COPD on 5L c/b fibrosis and bronchiectasis, RLL cavitary lesion suspicious for abscess v malignancy, HFpEF, CAD s/p stents, HTN, MVP, anxiety, who on 02/10 p/w progressive SOB, productive cough w sputum color change, and fever, found to have elevated HR and RR, hypoxia, lactate 2.4, and CT showing possible acute infiltrates, concerning for CAP causing sepsis and COPD exacerbation leading to acute on chronic hypoxic respiratory failure. Hospital course c/b acute pneumothorax requiring chest tube placement on 02/14, which was exchanged on 02/18 for larger tube due to increasing PTX and persistent air leak. Pt did undergo CT guided lung biopsy of cavitary lesion on 02/15 with results pending. Persistent air leak and PTX. Underwent blood patch with IR 02/23. Cavitary lung lesion: - Pulmonary service is following along with ID service. - ID switch her antibiotics from Zosyn to Augmentin. She is still on voriconazole - Patient remains afebrile. She has leukocytosis Pneumothorax: intermittent s/p blood patch requiring continued chest tube - Pulm managing, her chest tube was clamped today and follow-up chest x-ray was ordered. - Follow up chest x-ray revealed loculated pneumothorax which is unchanged from her previous x-ray. - Cardiothoracic team believes that the patient needed long-term chest tube. - Pulm has d/w CT surgery as she will likely need heimlich valve, she is not a surgical candidate Severe emphysematous COPD: - continue nebs home inhalers, and slowly taper prednisone ( on 20 mg now). Acute on Chronic hypoxic and hypercapneic respiratory failure: -On home 5L, now on 7 L HFpEF: lasix 40 po daily (home dose is 20-40 daily prn) Severe protein calorie malnutrition: see nutrition notes CAD: home statin, ASA HTN: lopressor as above Anxiety: home celexa 20 daily GERD: H2B bid Chronic Anemia- baseline in recent months 8s-10s, sub q hep resumed at q12 h ppx dosing PPx: sqh Lines: PIV, chest tube Code: [id number]-A Dispo: patient requires inpatient eval and management at this time. - Discussed with social services designee and shoe parts caser was replacement in long-term facility that accepts chest tube as her insurance most likely will deny ltac - Time Spent with Patient Total time spent is greater than 50% in coordination of care (as documented) at patient's floor/unit and/or counseling patient: Plan of Care Discussed with: social work Internal Medicine: Result - Labs CBC & Chem 7: 03/02/19 06:08 03/02/19 06:08 Labs: Short CBC 03/02/19 Range/Units 06:08 WBC 11.9 H (4.3-11.1) K/mcL Hgb 8.3 L (11.5-15.4) g/dL Hct 28.6 L (35.3-44.9) % Plt Count 389 (140-400) K/mcL Neutrophils # 9.6 H (1.6-8.9) K/mcL BMP 03/02/19 06:08 Sodium 137 Potassium 5.1 Chloride 95 L Carbon Dioxide 37 H BUN 37 H Creatinine 0.63 Glucose 175 H Calcium 9.6 - ABG Interpretation ABG results: ABG ABG pH 7.48 pH Units (7.32-7.45) H 02/13/19 23:42 ABG pCO2 44 mmHg (35-45) 02/13/19 23:42 ABG pO2 62 mmHg (85-104) L 02/13/19 23:42 ABG O2 Saturation 93 % (95-98) L 02/13/19 23:42 PT/INR, D-dimer PT 12.2 Seconds (9.4-12.1) H 03/01/19 06:23 967 ng/mLFEU (0-500) H 02/10/19 17:14 - Impressions Impressions Chest X-Ray 03/02/19 15:00 IMPRESSION: Stable chest with right-sided pigtail chest tube in place and loculated hydropneumothorax as on the previous exam. Bibasilar airspace disease is stable. Continued radiographic follow-up is recommended. D/ / Madi Nina MD / Madi Nina MD Interpreting Provider: Madi Nina MD Consult Discharge Plan - Plan Referrals: Aren Malik Jr, MD [Primary Care Provider] -
[2019-03-02] MEDS: *HR* HYDROcodone/Acet 5/325 mg TABLET PO PRN (19:37)
[2019-03-03] MEDS: Ondansetron 4 MG/2 ML VIAL IVP PRN ×2 (02:25→12:46)
[2019-03-03] MEDS: Levalbuterol Neb 0.63 MG/3 ML IH SCH ×4 (03:01→22:59)
[2019-03-03 04:38] LABS: Eosinophils % 0.7 %; Nucleated Red Blood Cells 0.4 /100 WBC (0); Red Cell Distribution Width 15.9 % (11.5-14.5)
[2019-03-03 04:40] LABS: Eosinophils # 0.1 K/mcL (0.0-0.6); Hematocrit 27.3 % (35.3-44.9); Hemoglobin 7.9 g/dL (11.5-15.4); Immature Granulocytes % 0.9 % (0-4); Lymphocytes # 1.2 K/mcL (0.6-4.6); Mean Corpuscular HGB Conc 28.9 g/dL (31.6-35.5); Mean Corpuscular Hemoglobin 28.9 pg (28.0-33.3); Monocytes # 0.9 K/mcL (0.0-1.3); Monocytes % 8.7 %; Neutrophils # 8.3 K/mcL (1.6-8.9); Platelet Count 355 K/mcL (140-400); Red Blood Count 2.73 M/mcL (3.82-4.97); Segmented Neutrophils % 78.7 %; White Blood Count 10.6 K/mcL (4.3-11.1)
[2019-03-03 05:01] LABS: Hypochromasia Present (Not Present); Platelet Estimate Normal (Normal)
[2019-03-03] MEDS: *HR* Heparin 5,000 UNIT/ML VIAL SQ SCH ×2 (05:36→16:54)
--- NOTE | 2019-03-03 07:33 | Pulmonology Progress Note ---
<RusselAlbert A - Last Filed: 03/03/19 10:39> Date of Encounter: 03/03/19 Time of Encounter: 09:00 Assessment and Plan (1) Pneumothorax on right Current Visit: Yes Status: Acute Persistent loculated pneumonothorax on the right with most recent CXR from 03/03/[address] surgery recommendations patient will require long-term chest tube manag ement, as she is recommended for nonoperative management. Chest tube remains in place on right side - turned off suction at on 03/02/19 at 11:30, and clamped at 12:30. Follow-up chest x-ray on 03/02/19 revealed stable loculated pneumothorax Chest x-ray was repeated on the morning of 03/03/19 which showed no interval change in loculated pneumothorax. As patient had no worsening symptoms overnight, including no chest pain or increased shortness of breath, okay to remove atrium and change to Heimlich v alve. We will continue to monitor (2) Acute exacerbation of chronic obstructive airways disease Current Visit: Yes Status: Acute Improving Wean supplemental O2 as tolerated Continue Ipratropium and Xopenex scheduled nebs On day 17 of glucocorticoid therapy, will require prolonged taper - Continue 20mg Prednisone daily for 1 more day followed by 3 days of 10mg daily for total course of 21 days. (3) Cavitary lesion of lung Current Visit: Yes Status: Chronic S/p CT guided biopsy from 02/15/19 Likely to be abscess Pathology from biopsy was negative for malignancy but did demonstrate mild chronic inflammation Sputum culture positive for fungal elements Respiratory culture was negative Respiratory fungal culture still pending ID is on board - appreciate recommendations Abx and antifungals per ID recs Completed 21 days of Zosyn - transitioned to Augmentin Voriconazole Day 8 Subjective Principal diagnosis: Dyspnea Interval history: Pt seen and examined at bedside. No acute events overnight. States she feels "about the same as yesterday". States she is anxious to hear if she can switch to eval on her chest tube. Denies any increased shortness of breath, chest pain, increased cough, or change in sputum production overnight. Objective PUL Vital signs: Last Vital Signs Temp 97.5 F L 03/03/19 03:42 Pulse 98 03/03/19 03:42 Resp 24 03/03/19 03:42 BP 110/75 03/03/19 03:42 Pulse Ox 97 03/03/19 06:08 General appearance: no acute distress Eyes: nonicteric ENT: oropharynx moist Neck: supple Effort: normal Auscultation: bilateral: wheezes (Scattered throughout) Cardiovascular: regular rate and rhythm Gastrointestinal: soft, non-tender, non-distended Integumentary: normal Extremities: no cyanosis, no edema, no clubbing, pink and warm, pulses normal Musculoskeletal: no deformities normal mental status, non-focal exam, pupils equal and round mood appropriate, affect normal Results - Laboratory Findings CBC and BMP: 03/03/19 04:21 03/02/19 06:08 ABG ABG pH 7.48 pH Units (7.32-7.45) H 02/13/19 23:42 ABG pCO2 44 mmHg (35-45) 02/13/19 23:42 ABG pO2 62 mmHg (85-104) L 02/13/19 23:42 ABG O2 Saturation 93 % (95-98) L 02/13/19 23:42 PT/INR, D-dimer PT 12.2 Seconds (9.4-12.1) H 03/01/19 06:23 967 ng/mLFEU (0-500) H 02/10/19 17:14 Abnormal lab findings: Abnormal lab results WBC 11.9 K/mcL (4.3-11.1) H 03/02/19 06:08 RBC 2.73 M/mcL (3.82-4.97) L 03/03/19 04:21 Hgb 7.9 g/dL (11.5-15.4) L 03/03/19 04:21 Hct 27.3 % (35.3-44.9) L 03/03/19 04:21 MCHC 28.9 g/dL (31.6-35.5) L 03/03/19 04:21 RDW 15.9 % (11.5-14.5) H 03/03/19 04:21 Plt Count 423 K/mcL (140-400) H 02/27/19 05:30 9.6 K/mcL (1.6-8.9) H 03/02/19 06:08 0.4 K/mcL (0.6-4.6) L 02/13/19 03:02 1.4 K/mcL (0.0-1.3) H 02/27/19 05:30 Nucleated RBCs/100 WBC 0.4 /100 WBC (0) H 03/03/19 04:21 Slight increase (Normal) H 02/18/19 12:35 Present (Not Present) A 03/03/19 04:21 1+ (Not Present) A 02/25/19 03:30 ESR 118 mm/hr (0-15) H 02/22/19 04:15 PT 12.2 Seconds (9.4-12.1) H 03/01/19 06:23 967 ng/mLFEU (0-500) H 02/10/19 17:14 ABG pH 7.48 pH Units (7.32-7.45) H 02/13/19 23:42 ABG pO2 62 mmHg (85-104) L 02/13/19 23:42 ABG HCO3 33 mEq/L (21-27) H 02/13/19 23:42 ABG Total CO2 34 mEq/L (20-26) H 02/13/19 23:42 ABG O2 Saturation 93 % (95-98) L 02/13/19 23:42 ABG Base Excess 8 mEq/L (-2 to 3) H 02/13/19 23:42 Sodium 134 mEq/L (136-145) L 02/27/19 05:30 Potassium 5.3 mEq/L (3.5-5.1) H 02/20/19 05:30 Chloride 95 mEq/L (98-107) L 03/02/19 06:08 Carbon Dioxide 37 mEq/L (23-29) H 03/02/19 06:08 BUN 37 mg/dL (8-23) H 03/02/19 06:08 0.57 mg/dL (0.60-1.20) L 03/01/19 06:23 59 (6-26) H 03/02/19 06:08 Glucose 175 mg/dL (70-105) H 03/02/19 06:08 POC Glucose 173 mg/dL (70-99) H 02/25/19 00:49 306 (280-300) H 02/15/19 04:20 Lactic Acid 2.4 mmol/L (0.5-2.2) H 02/10/19 17:34 Calcium 10.4 mg/dL (8.6-10.3) H 02/20/19 05:30 Phosphorus 2.5 mg/dL (2.7-4.5) L 02/22/19 04:15 97 mg/L (Less than 10) H 02/22/19 04:15 B-Natriuretic Peptide 512 pg/mL (Less than 100) H 02/13/19 03:02 5.9 g/dL (6.4-8.9) L 02/24/19 05:43 3.1 g/dL (3.5-5.7) L 02/27/19 05:30 0.9 (1.1-2.2) L 02/27/19 05:30 Trace-intact (Negative) H 02/10/19 23:52 Ur Squamous Epith Cells Moderate per lpf (None-Few) H 02/10/19 23:52 Histoplasma Yeast Ab CF 1:8 (<1:8) H 02/17/19 10:35 Aspergillus Ab (CompFix) 1:16 (<1:8) H 02/17/19 10:35 A. galactomannan Ag POSITIVE (Negative) A 02/17/19 10:35 B-(1,3)-D-Glucan Intrp POSITIVE (Negative) A 02/17/19 10:35 - Microbiology Findings Microbiology Findings: Microbiology, Last 48 Hours 02/19/19 05:05 Blood Fungal Culture - Final Peripheral Venipuncture No growth. Final report. - Clinical Findings Intake & Output: Intake & Output 03/02/19 03/02/19 03/03/19 15:59 23:59 07:59 Intake Total 240 / 340 Output Total 200 / 450 Balance 40 / -110 Weight 64.4 kg Consult Discharge Plan - Plan Referrals: Aren Malik Jr, MD [Primary Care Provider] - <Yael Arriaga - Last Filed: 03/03/19 13:18> Date of Encounter: 03/03/19 Assessment and Plan (1) Acute and chronic respiratory failure with hypoxia Current Visit: No Status: Acute (2) Pneumothorax on right Current Visit: Yes Status: Acute (3) Cavitary lesion of lung Current Visit: Yes Status: Chronic Objective PUL Vital signs: Last Vital Signs Temp 97.5 F L 03/03/19 03:42 Pulse 102 03/03/19 11:39 Resp 18 03/03/19 11:39 BP 98/56 03/03/19 11:39 Pulse Ox 93 03/03/19 11:39 Results - Laboratory Findings CBC and BMP: 03/03/19 04:21 03/02/19 06:08 ABG ABG pH 7.48 pH Units (7.32-7.45) H 02/13/19 23:42 ABG pCO2 44 mmHg (35-45) 02/13/19 23:42 ABG pO2 62 mmHg (85-104) L 02/13/19 23:42 ABG O2 Saturation 93 % (95-98) L 02/13/19 23:42 PT/INR, D-dimer PT 12.2 Seconds (9.4-12.1) H 03/01/19 06:23 967 ng/mLFEU (0-500) H 02/10/19 17:14 Abnormal lab findings: Abnormal lab results WBC 11.9 K/mcL (4.3-11.1) H 03/02/19 06:08 RBC 2.73 M/mcL (3.82-4.97) L 03/03/19 04:21 Hgb 7.9 g/dL (11.5-15.4) L 03/03/19 04:21 Hct 27.3 % (35.3-44.9) L 03/03/19 04:21 MCHC 28.9 g/dL (31.6-35.5) L 03/03/19 04:21 RDW 15.9 % (11.5-14.5) H 03/03/19 04:21 Plt Count 423 K/mcL (140-400) H 02/27/19 05:30 9.6 K/mcL (1.6-8.9) H 03/02/19 06:08 0.4 K/mcL (0.6-4.6) L 02/13/19 03:02 1.4 K/mcL (0.0-1.3) H 02/27/19 05:30 Nucleated RBCs/100 WBC 0.4 /100 WBC (0) H 03/03/19 04:21 Slight increase (Normal) H 02/18/19 12:35 Present (Not Present) A 03/03/19 04:21 1+ (Not Present) A 02/25/19 03:30 ESR 118 mm/hr (0-15) H 02/22/19 04:15 PT 12.2 Seconds (9.4-12.1) H 03/01/19 06:23 967 ng/mLFEU (0-500) H 02/10/19 17:14 ABG pH 7.48 pH Units (7.32-7.45) H 02/13/19 23:42 ABG pO2 62 mmHg (85-104) L 02/13/19 23:42 ABG HCO3 33 mEq/L (21-27) H 02/13/19 23:42 ABG Total CO2 34 mEq/L (20-26) H 02/13/19 23:42 ABG O2 Saturation 93 % (95-98) L 02/13/19 23:42 ABG Base Excess 8 mEq/L (-2 to 3) H 02/13/19 23:42 Sodium 134 mEq/L (136-145) L 02/27/19 05:30 Potassium 5.3 mEq/L (3.5-5.1) H 02/20/19 05:30 Chloride 95 mEq/L (98-107) L 03/02/19 06:08 Carbon Dioxide 37 mEq/L (23-29) H 03/02/19 06:08 BUN 37 mg/dL (8-23) H 03/02/19 06:08 0.57 mg/dL (0.60-1.20) L 03/01/19 06:23 59 (6-26) H 03/02/19 06:08 Glucose 175 mg/dL (70-105) H 03/02/19 06:08 POC Glucose 173 mg/dL (70-99) H 02/25/19 00:49 306 (280-300) H 02/15/19 04:20 Lactic Acid 2.4 mmol/L (0.5-2.2) H 02/10/19 17:34 Calcium 10.4 mg/dL (8.6-10.3) H 02/20/19 05:30 Phosphorus 2.5 mg/dL (2.7-4.5) L 02/22/19 04:15 97 mg/L (Less than 10) H 02/22/19 04:15 B-Natriuretic Peptide 512 pg/mL (Less than 100) H 02/13/19 03:02 5.9 g/dL (6.4-8.9) L 02/24/19 05:43 3.1 g/dL (3.5-5.7) L 02/27/19 05:30 0.9 (1.1-2.2) L 02/27/19 05:30 Trace-intact (Negative) H 02/10/19 23:52 Ur Squamous Epith Cells Moderate per lpf (None-Few) H 02/10/19 23:52 Histoplasma Yeast Ab CF 1:8 (<1:8) H 02/17/19 10:35 Aspergillus Ab (CompFix) 1:16 (<1:8) H 02/17/19 10:35 A. galactomannan Ag POSITIVE (Negative) A 02/17/19 10:35 B-(1,3)-D-Glucan Intrp POSITIVE (Negative) A 02/17/19 10:35 - Clinical Findings Intake & Output: Intake & Output 03/02/19 03/03/19 03/03/19 23:59 07:59 15:59 Intake Total 740 / 740 Balance 740 / 740 Weight 64.4 kg - Attending Attestation Pneumothorax is stable after clamping the tube for more than 12 hours will try Heimlich valve to expedite the discharge. It is a complete healing and no evidence of residual pneumothorax as a possible the week and remove the chest tube. Antimicrobials according to infectious disease.
[2019-03-03] MEDS: Aspirin Enteric Coated 81 MG Tablet PO SCH (10:13)
[2019-03-03] MEDS: predniSONE 20 MG TABLET PO SCH (10:13)
[2019-03-03] MEDS: Magnesium Oxide 400 MG TABLET PO SCH (10:13)
[2019-03-03] MEDS: Furosemide 40 MG TABLET PO SCH (10:13)
[2019-03-03] MEDS: Loratadine 10 MG TABLET PO SCH (10:13)
[2019-03-03] MEDS: Lactobacillus 1 EACH CAP.SPRINK PO SCH (10:13)
--- NOTE | 2019-03-03 14:30 | Internal Med Progress Note ---
Hospitalist Progress Note - Encounter Date of Encounter: 03/03/19 Time of Encounter: 10:00 - Subjective Interval History: Patient was seen today at bedside. No changes in her breathing impaired to before. Her chest tube is still clamped from yesterday. She is still requiring 7liters of oxygen today. - Exam Vitals: Temp Pulse Resp BP Pulse Ox 97.5 F L 102 18 96/59 93 03/03/19 03:42 03/03/19 11:39 03/03/19 11:39 03/03/19 12:44 03/03/19 11:39 Exam: Gen.: Alert and oriented 3 - Head Head exam: Present: atraumatic, normocephalic - ENT ENT exam: Present: normal exam - Respiratory Diminished lung sounds bilaterally, right-sided chest tube - Cardiovascular Cardiovascular exam: Present: RRR, +S1, +S2. Absent: diastolic murmur, gallop, rubs, systolic murmur - GI/Abdominal GI/Abdominal exam: Present: normal bowel sounds, soft, no peritoneal signs. Absent: distended, tenderness - Extremities Exam Extremities exam: Present: full ROM, normal capillary refill, warm, radial pulses palpable and symmetrical. Absent: calf tenderness, cyanotic, pedal edema - Neurological Exam Neurological exam: Present: CN II-XII intact, oriented X3, no focal deficits. Absent: pronater drift, facial droop, speech deficit - Psychiatric Psychiatric exam: Present: normal affect, normal mood - Assessment and Plan (1) Acute exacerbation of chronic obstructive airways disease Current Visit: Yes Status: Acute (2) Cavitary lesion of lung Current Visit: Yes Status: Chronic (3) Pneumothorax on right Current Visit: Yes Status: Acute - Summary of Assessment and Plan Summary of Assessment and Plan: Nany Peck is a 73 F w hx severe COPD on 5L c/b fibrosis and bronchiec tasis, RLL cavitary lesion suspicious for abscess v malignancy, HFpEF, CAD s/p stents, HTN, MVP, anxiety, who on 02/10 p/w progressive SOB, productive cough w sputum color change, and fever, found to have elevated HR and RR, hypoxia, lactate 2.4, and CT showing possible acute infiltrates, concerning for CAP causing sepsis and COPD exacerbation leading to acute on chronic hypoxic respiratory failure. Hospital course c/b acute pneumothorax requiring chest tube placement on 02/14, which was exchanged on 02/18 for larger tube due to increasing PTX and persistent air leak. Pt did undergo CT guided lung biopsy of cavitary lesion on 02/15 with results pending. Persistent air leak and PTX. Underwent blo od patch with IR 02/23. Cavitary lung lesion: - Pulmonary service is following along with ID service. - ID switch her antibiotics from Zosyn to Augmentin. She is still on voriconazole - Patient remains afebrile. Her leukocytosis improved Pneumothorax: intermittent s/p blood patch requiring continued chest tube - Pulm managing, her chest tube was clamped on 03/02 and follow-up chest x-ray was ordered which revealed residual loculated PTX. - Pulm recommended hemlich valve given the stability of her symptoms. - Cardiothoracic team believes that the patient needed long-term chest tube as she is not a surgical candidate Severe emphysematous COPD: - continue nebs home inhalers, and slowly taper prednisone ( on 20 mg now and will go on 10mg on 03/05 as per Pulm). Acute on Chronic hypoxic and hypercapneic respiratory failure: -On home 5L, now on 7 L HFpEF: lasix 40 po daily (home dose is 20-40 daily prn) Severe protein calorie malnutrition: see nutrition notes CAD: home statin, ASA HTN: lopressor as above Anxiety: home celexa 20 daily GERD: H2B bid Chronic Anemia- baseline in recent months 8s-10s, sub q hep resumed at q12 h ppx dosing PPx: sqh Lines: PIV, chest tube Code: DNRCC-A Dispo: patient requires inpatient eval and management at this time. - Discussed with psych social worker and embedded case manager was replacement in long-term facility that accepts chest tube as her insurance most likely will deny ltac - Time Spent with Patient Total time spent is greater than 50% in coordination of care (as documented) at patient's floor/unit and/or counseling patient: Plan of Care Discussed with: patient Internal Medicine: Result - Labs CBC & Chem 7: 03/03/19 04:21 03/02/19 06:08 Labs: Short CBC 03/03/19 Range/Units 04:21 WBC 10.6 (4.3-11.1) K/mcL Hgb 7.9 L (11.5-15.4) g/dL Hct 27.3 L (35.3-44.9) % Plt Count 355 (140-400) K/mcL Neutrophils # 8.3 (1.6-8.9) K/mcL - ABG Interpretation ABG results: ABG ABG pH 7.48 pH Units (7.32-7.45) H 02/13/19 23:42 ABG pCO2 44 mmHg (35-45) 02/13/19 23:42 ABG pO2 62 mmHg (85-104) L 02/13/19 23:42 ABG O2 Saturation 93 % (95-98) L 02/13/19 23:42 PT/INR, D-dimer PT 12.2 Seconds (9.4-12.1) H 03/01/19 06:23 967 ng/mLFEU (0-500) H 02/10/19 17:14 - Impressions Impressions Chest X-Ray 03/02/19 15:00 IMPRESSION: Stable chest with right-sided pigtail chest tube in place and loculated hydropneumothorax as on the previous exam. Bibasilar airspace disease is stable. Continued radiographic follow-up is recommended. D/ / Madi Nina MD / Madi Nina MD Interpreting Provider: Madi Nina MD Chest X-Ray 03/03/19 07:24 IMPRESSION: No significant change in the appearance of the chest following clamping of the right-sided chest tube. Previously described loculated small right apical pneumothorax not readily apparent insert no larger than on the prior study. Moderate bibasilar pulmonary opacities remain either due to atelectasis or pneumonia. Mild pulmonary vascular congestion. Moderate loculated pneumothorax appears present inferiorly and laterally in the right chest. Moderate bullous changes in the right lung. D/ / Joe Carey MD / Joe Carey MD Interpreting Provider: Joe Carey MD Consult Discharge Plan - Plan Referrals: Aren Malik Jr, MD [Primary Care Provider] -
[2019-03-03] MEDS: *HR* HYDROcodone/Acet 5/325 mg TABLET PO PRN (19:56)
[2019-03-04] MEDS: Melatonin 3 MG TABLET PO PRN ×2 (02:27→21:01)
[2019-03-04] MEDS: Levalbuterol Neb 0.63 MG/3 ML IH SCH ×4 (03:40→22:34)
[2019-03-04] MEDS: Ondansetron 4 MG/2 ML VIAL IVP PRN ×2 (04:40→13:06)
[2019-03-04 05:19] LABS: Hematocrit 31.1 % (35.3-44.9); Hemoglobin 9.1 g/dL (11.5-15.4); Mean Corpuscular HGB Conc 29.3 g/dL (31.6-35.5); Mean Corpuscular Hemoglobin 28.3 pg (28.0-33.3); Mean Corpuscular Volume 96.9 fL (83.0-100.0); Mean Platelet Volume 11.1 fL (9.4-12.4); Platelet Count 383 K/mcL (140-400); Red Blood Count 3.21 M/mcL (3.82-4.97); Red Cell Distribution Width 15.9 % (11.5-14.5); White Blood Count 12.1 K/mcL (4.3-11.1)
[2019-03-04 05:39] LABS: Blood Urea Nitrogen 24 mg/dL (8-23); Calcium 9.3 mg/dL (8.6-10.3); Carbon Dioxide 34 mEq/L (23-29); Chloride 96 mEq/L (98-107); Glucose 119 mg/dL (70-105); Osmolality,Calculated 287 (280-300); Potassium 4.4 mEq/L (3.5-5.1); Sodium 136 mEq/L (136-145)
[2019-03-04 05:57] LABS: BUN/Creatinine Ratio 42 (6-26); eGFR For African Americans > 60 (> 60); eGFR For Non-African Americans > 60 (> 60)
[2019-03-04] MEDS: *HR* Heparin 5,000 UNIT/ML VIAL SQ SCH ×2 (06:41→18:17)
[2019-03-04] MEDS: Magnesium Oxide 400 MG TABLET PO SCH (08:00)
[2019-03-04] MEDS: Aspirin Enteric Coated 81 MG Tablet PO SCH (08:00)
[2019-03-04] MEDS: Furosemide 40 MG TABLET PO SCH (08:01)
[2019-03-04] MEDS: Lactobacillus 1 EACH CAP.SPRINK PO SCH (08:01)
[2019-03-04] MEDS: predniSONE 20 MG TABLET PO SCH (08:01)
[2019-03-04] MEDS: Loratadine 10 MG TABLET PO SCH (08:01)
--- NOTE | 2019-03-04 12:07 | Pulmonology Progress Note ---
<Tylor Lynn W - Last Filed: 03/04/19 12:12> Date of Encounter: 03/04/19 Assessment and Plan (1) Pneumothorax Current Visit: Yes Status: Acute Qualifiers: Encounter type: subsequent encounter Qualified Code(s): S27.0XXD - Traumatic pneumothorax, subsequent encounter (2) Acute exacerbation of chronic obstructive airways disease Current Visit: Yes Status: Acute (3) Cavitary lesion of lung Current Visit: Yes Status: Chronic Objective PUL Vital signs: Last Vital Signs Temp 97.6 F 03/04/19 06:59 Pulse 95 03/04/19 06:59 Resp 20 03/04/19 09:42 BP 116/73 03/04/19 06:59 Pulse Ox 94 03/04/19 09:42 Results - Laboratory Findings CBC and BMP: 03/04/19 05:08 03/04/19 05:08 ABG ABG pH 7.48 pH Units (7.32-7.45) H 02/13/19 23:42 ABG pCO2 44 mmHg (35-45) 02/13/19 23:42 ABG pO2 62 mmHg (85-104) L 02/13/19 23:42 ABG O2 Saturation 93 % (95-98) L 02/13/19 23:42 PT/INR, D-dimer PT 12.2 Seconds (9.4-12.1) H 03/01/19 06:23 967 ng/mLFEU (0-500) H 02/10/19 17:14 Abnormal lab findings: Abnormal lab results WBC 12.1 K/mcL (4.3-11.1) H 03/04/19 05:08 RBC 3.21 M/mcL (3.82-4.97) L 03/04/19 05:08 Hgb 9.1 g/dL (11.5-15.4) L 03/04/19 05:08 Hct 31.1 % (35.3-44.9) L 03/04/19 05:08 MCHC 29.3 g/dL (31.6-35.5) L 03/04/19 05:08 RDW 15.9 % (11.5-14.5) H 03/04/19 05:08 Plt Count 423 K/mcL (140-400) H 02/27/19 05:30 9.6 K/mcL (1.6-8.9) H 03/02/19 06:08 0.4 K/mcL (0.6-4.6) L 02/13/19 03:02 1.4 K/mcL (0.0-1.3) H 02/27/19 05:30 Nucleated RBCs/100 WBC 0.4 /100 WBC (0) H 03/03/19 04:21 Slight increase (Normal) H 02/18/19 12:35 Present (Not Present) A 03/03/19 04:21 1+ (Not Present) A 02/25/19 03:30 ESR 118 mm/hr (0-15) H 02/22/19 04:15 PT 12.2 Seconds (9.4-12.1) H 03/01/19 06:23 967 ng/mLFEU (0-500) H 02/10/19 17:14 ABG pH 7.48 pH Units (7.32-7.45) H 02/13/19 23:42 ABG pO2 62 mmHg (85-104) L 02/13/19 23:42 ABG HCO3 33 mEq/L (21-27) H 02/13/19 23:42 ABG Total CO2 34 mEq/L (20-26) H 02/13/19 23:42 ABG O2 Saturation 93 % (95-98) L 02/13/19 23:42 ABG Base Excess 8 mEq/L (-2 to 3) H 02/13/19 23:42 Sodium 134 mEq/L (136-145) L 02/27/19 05:30 Potassium 5.3 mEq/L (3.5-5.1) H 02/20/19 05:30 Chloride 96 mEq/L (98-107) L 03/04/19 05:08 Carbon Dioxide 34 mEq/L (23-29) H 03/04/19 05:08 BUN 24 mg/dL (8-23) H 03/04/19 05:08 0.57 mg/dL (0.60-1.20) L 03/04/19 05:08 42 (6-26) H 03/04/19 05:08 Glucose 119 mg/dL (70-105) H 03/04/19 05:08 POC Glucose 171 mg/dL (70-99) H 03/03/19 12:08 306 (280-300) H 02/15/19 04:20 Lactic Acid 2.4 mmol/L (0.5-2.2) H 02/10/19 17:34 Calcium 10.4 mg/dL (8.6-10.3) H 02/20/19 05:30 Phosphorus 2.5 mg/dL (2.7-4.5) L 02/22/19 04:15 97 mg/L (Less than 10) H 02/22/19 04:15 B-Natriuretic Peptide 512 pg/mL (Less than 100) H 02/13/19 03:02 5.9 g/dL (6.4-8.9) L 02/24/19 05:43 3.1 g/dL (3.5-5.7) L 02/27/19 05:30 0.9 (1.1-2.2) L 02/27/19 05:30 Trace-intact (Negative) H 02/10/19 23:52 Ur Squamous Epith Cells Moderate per lpf (None-Few) H 02/10/19 23:52 Histoplasma Yeast Ab CF 1:8 (<1:8) H 02/17/19 10:35 Aspergillus Ab (CompFix) 1:16 (<1:8) H 02/17/19 10:35 A. galactomannan Ag POSITIVE (Negative) A 02/17/19 10:35 B-(1,3)-D-Glucan Intrp POSITIVE (Negative) A 02/17/19 10:35 - Clinical Findings Intake & Output: Intake & Output 03/03/19 03/04/19 03/04/19 23:59 07:59 15:59 Intake Total 100 / 960 120 / 120 Output Total 500 / 500 Balance 100 / 960 -380 / -380 Weight 64.6 kg Consult Discharge Plan - Plan Instructions: Chest Tubes (DC) Additional Instructions: This information will help you care for your Heimlich valve and chest tube when you leave the hospital. About Your Heimlich Valve and Chest Tube Your chest tube is a hollow flexible tube placed between your ribs and into the space between the inner and outer linings of your lungs, which is called the pleural space. Your Heimlich valve is a one-way valve that connects to your chest tube. The valve lets extra air and fluid out of your chest, allowing your lung to fully expand. You may go home with a Heimlich valve if your lung is still leaking air after your surgery. Caring for Your Heimlich Valve and Chest Tube Your chest tube will be covered with a bandage. Change your bandage every 7 days. Clean the skin around your chest tube with soap and water before applying the new bandage. If your bandage is wet, soiled, has come loose, or started to lift from your skin, apply a new one. If your chest tube is draining fluid, your Heimlich valve will be connected to either a plastic container or a drainage bag. The type of collection device used will depend on how much fluid is draining. If your Heimlich valve is connected to a small plastic container, write down the amount in the container and empty it into the toilet. If your Heimlich valve is connected to a drainage bag, your doctor may want you to measure the amount of fluid that is draining. Write down the amount and empty the bag into the toilet. To remove the fluid, open the valve at the bottom of the drainage bag and pour it into the toilet. The chest tube may irritate your chest wall, causing you some discomfort. Your doctor can prescribe pain medication, if you need it. Showering with your Heimlich valve You may take showers but you will need to keep your bandage dry. A hand-held showerhead can help direct the water away from your bandage. You will also need to cover your bandage. If the bandage gets wet, you will need to change it. Wet bandages are a common cause of skin problems. Fixing a disconnected Heimlich valve The Heimlich valve should never be disconnected from your chest tube. If it becomes disconnected, follow these steps: 1. Reconnect it immediately by inserting the blue end of the valve into your chest tube. 2. Cough deeply. This will help get rid of any extra air that may have built up in your pleural space while disconnecting your Heimlich valve. 3. Call your doctors office. Call Your Doctor or Nurse if: You have a temperature of 101 F (38.3 C) or higher Your skin around the chest tube is red, puffy, or feels warm and painful when you touch it You have pain that is not relieved by your pain medication The amount of drainage from the chest tube increases Referrals: Arne Malik Jr, MD [Primary Care Provider] - - Attending Attestation I examined this patient and my medical decision-making was reviewed with the Resident Physician. I agree with the documented findings, disposition and treatment plan as described except to the extent set forth below. We independently had [id number] contact with the patient Patient seen and examined at bedside Labs, radiology, chart personally reviewed. Impression/Recs: -Pneumothorax, chest x-ray stable on Heimlich valve patient can be discharged safely with Heimlich valve in place will need to clinic pulmonary follow-up 1-2 weeks with repeat chest x-ray on the day of clinic appointment. Detailed instructions were care will be provided in the discharge summary and I went over with the patient at bedside. She will be at increased risk for infection and she should go to emergency room immediately if any worsening acute severe chest pain shortness of breath, or if she experiences fever. -PNA, antibiotics per infectious disease team including antifungal coverage will need prolonged course -AECOPD, wean steroids over the next 2 weeks patient can transition to home regimen for COPD <Albert Goode - Last Filed: 03/04/19 15:05> Date of Encounter: 03/04/19 Time of Encounter: 09:00 Assessment and Plan (1) Pneumothorax on right Current Visit: Yes Status: Acute Persistent loculated pneumonothorax on the right with most recent CXR from 03/04/[address] surgery recommendations patient will require long-term chest tube management, as she is recommended for nonoperative management. Chest tube remains in place on right side - turned off suction at on 03/02/19 at 11:30, and clamped at 12:30. Follow-up chest x-ray on 03/02/19 revealed stable loculated pneumothorax Chest x-ray was repeated on the morning of 03/03/19 which showed no interval change in loculated pneumothorax. Heimlich valve placed on 03/03/19 Repeat CXR on 03/04/19 showed no significant change in hydropneumothorax Pt provided with detailed instruction on Hemlich valve and chest tube care. Will also include this instructions in discharge summary. Pt is aware she is at increased risk of infection and should go to the ED immediately with any fever, chills, worsening acute or sever chest pain, or shortness of breath. (2) Acute exacerbation of chronic obstructive airways disease Current Visit: Yes Status: Acute Improving Wean supplemental O2 as tolerated Continue Ipratropium and Xopenex scheduled nebs On day 18 of glucocorticoid therapy, will require prolonged taper - 20mg daily for 7 days followed by 10mg for 7 days (3) Cavitary lesion of lung Current Visit: Yes Status: Chronic S/p CT guided biopsy from 02/15/19 Likely to be abscess Pathology from biopsy was negative for malignancy but did demonstrate mild chronic inflammation Sputum culture positive for fungal elements Respiratory culture was negative Respiratory fungal culture still pending ID is on board - appreciate recommendations Abx and antifungals per ID recs Completed 21 days of Zosyn - transitioned to Augmentin Voriconazole Day 9 Subjective Principal diagnosis: Dyspnea Interval history: Pt seen and examined at bedside. No acute events overnight. States she feels "about the same as yesterday". Denies any increased shortness of breath, chest pain, increased cough, or change in sputum production overnight. Objective PUL Vital signs: Last Vital Signs Temp 97.6 F 03/04/19 06:59 Pulse 95 03/04/19 06:59 Resp 20 03/04/19 09:42 BP 116/73 03/04/19 06:59 Pulse Ox 94 03/04/19 09:42 General appearance: no acute distress, alert Eyes: nonicteric ENT: oropharynx moist Neck: supple Effort: normal Auscultation: bilateral: wheezes (scattered diffuse ), rales (bases) Cardiovascular: regular rate and rhythm Gastrointestinal: soft, non-tender, non-distended Integumentary: normal Extremities: no cyanosis, no edema, no clubbing, pink and warm, pulses normal Musculoskeletal: no deformities normal mental status, non-focal exam, pupils equal and round mood appropriate, affect normal Results - Laboratory Findings CBC and BMP: 03/04/19 05:08 03/04/19 05:08 ABG ABG pH 7.48 pH Units (7.32-7.45) H 02/13/19 23:42 ABG pCO2 44 mmHg (35-45) 02/13/19 23:42 ABG pO2 62 mmHg (85-104) L 02/13/19 23:42 ABG O2 Saturation 93 % (95-98) L 02/13/19 23:42 PT/INR, D-dimer PT 12.2 Seconds (9.4-12.1) H 03/01/19 06:23 967 ng/mLFEU (0-500) H 02/10/19 17:14 Abnormal lab findings: Abnormal lab results WBC 12.1 K/mcL (4.3-11.1) H 03/04/19 05:08 RBC 3.21 M/mcL (3.82-4.97) L 03/04/19 05:08 Hgb 9.1 g/dL (11.5-15.4) L 03/04/19 05:08 Hct 31.1 % (35.3-44.9) L 03/04/19 05:08 MCHC 29.3 g/dL (31.6-35.5) L 03/04/19 05:08 RDW 15.9 % (11.5-14.5) H 03/04/19 05:08 Plt Count 423 K/mcL (140-400) H 02/27/19 05:30 9.6 K/mcL (1.6-8.9) H 03/02/19 06:08 0.4 K/mcL (0.6-4.6) L 02/13/19 03:02 1.4 K/mcL (0.0-1.3) H 02/27/19 05:30 Nucleated RBCs/100 WBC 0.4 /100 WBC (0) H 03/03/19 04:21 Slight increase (Normal) H 02/18/19 12:35 Present (Not Present) A 03/03/19 04:21 1+ (Not Present) A 02/25/19 03:30 ESR 118 mm/hr (0-15) H 02/22/19 04:15 PT 12.2 Seconds (9.4-12.1) H 03/01/19 06:23 967 ng/mLFEU (0-500) H 02/10/19 17:14 ABG pH 7.48 pH Units (7.32-7.45) H 02/13/19 23:42 ABG pO2 62 mmHg (85-104) L 02/13/19 23:42 ABG HCO3 33 mEq/L (21-27) H 02/13/19 23:42 ABG Total CO2 34 mEq/L (20-26) H 02/13/19 23:42 ABG O2 Saturation 93 % (95-98) L 02/13/19 23:42 ABG Base Excess 8 mEq/L (-2 to 3) H 02/13/19 23:42 Sodium 134 mEq/L (136-145) L 02/27/19 05:30 Potassium 5.3 mEq/L (3.5-5.1) H 02/20/19 05:30 Chloride 96 mEq/L (98-107) L 03/04/19 05:08 Carbon Dioxide 34 mEq/L (23-29) H 03/04/19 05:08 BUN 24 mg/dL (8-23) H 03/04/19 05:08 0.57 mg/dL (0.60-1.20) L 03/04/19 05:08 42 (6-26) H 03/04/19 05:08 Glucose 119 mg/dL (70-105) H 03/04/19 05:08 POC Glucose 171 mg/dL (70-99) H 03/03/19 12:08 306 (280-300) H 02/15/19 04:20 Lactic Acid 2.4 mmol/L (0.5-2.2) H 02/10/19 17:34 Calcium 10.4 mg/dL (8.6-10.3) H 02/20/19 05:30 Phosphorus 2.5 mg/dL (2.7-4.5) L 02/22/19 04:15 97 mg/L (Less than 10) H 02/22/19 04:15 B-Natriuretic Peptide 512 pg/mL (Less than 100) H 02/13/19 03:02 5.9 g/dL (6.4-8.9) L 02/24/19 05:43 3.1 g/dL (3.5-5.7) L 02/27/19 05:30 0.9 (1.1-2.2) L 02/27/19 05:30 Trace-intact (Negative) H 02/10/19 23:52 Ur Squamous Epith Cells Moderate per lpf (None-Few) H 02/10/19 23:52 Histoplasma Yeast Ab CF 1:8 (<1:8) H 02/17/19 10:35 Aspergillus Ab (CompFix) 1:16 (<1:8) H 02/17/19 10:35 A. galactomannan Ag POSITIVE (Negative) A 02/17/19 10:35 B-(1,3)-D-Glucan Intrp POSITIVE (Negative) A 02/17/19 10:35 - Diagnostic Findings Chest x-ray: report reviewed, image reviewed - Clinical Findings Intake & Output: Intake & Output 03/03/19 03/04/19 03/04/19 23:59 07:59 15:59 Intake Total 100 / 960 120 / 120 Output Total 500 / 500 Balance 100 / 960 -380 / -380 Weight 64.6 kg
--- NOTE | 2019-03-04 14:05 | Internal Med Progress Note ---
Hospitalist Progress Note - Encounter Date of Encounter: 03/04/19 Time of Encounter: 10:15 - Subjective Interval History: Patient was seen today. She reported no new symptoms. She is sometimes feel nauseous after taking antibiotics. Her breathing is about the same but improved since admission. - Exam Vitals: Temp Pulse Resp BP Pulse Ox 97.6 F 95 20 116/73 94 03/04/19 06:59 03/04/19 06:59 03/04/19 09:42 03/04/19 06:59 03/04/19 09:42 Exam: Gen.: Alert and oriented 3 - Head Head exam: Present: atraumatic, normocephalic - ENT ENT exam: Present: normal exam - Respiratory Diminished lung sounds bilaterally, right-sided chest tube - Cardiovascular Cardiovascular exam: Present: RRR, +S1, +S2. Absent: diastolic murmur, gallop, rubs, systolic murmur - GI/Abdominal GI/Abdominal exam: Present: normal bowel sounds, soft, no peritoneal signs. Absent: distended, tenderness - Extremities Exam Extremities exam: Present: full ROM, normal capillary refill, warm, radial pulses palpable and symmetrical. Absent: calf tenderness, cyanotic, pedal edema - Neurological Exam Neurological exam: Present: CN II-XII intact, oriented X3, no focal deficits. Absent: pronater drift, facial droop, speech deficit - Psychiatric Psychiatric exam: Present: normal affect, normal mood - Assessment and Plan (1) Healthcare-associated pneumonia Current Visit: Yes Status: Acute (2) Acute exacerbation of chronic obstructive airways disease Current Visit: Yes Status: Acute (3) Cavitary lesion of lung Current Visit: Yes Status: Chronic (4) Pneumothorax on right Current Visit: Yes Status: Acute - Summary of Assessment and Plan Summary of Assessment and Plan: Nany Peck is a 73 F w hx severe COPD on 5L c/b fibrosis and bronchiectasis, RLL cavitary lesion suspicious for abscess v malignancy, HFpEF, CAD s/p stents, HTN, MVP, anxiety, who on 02/10 p/w progressive SOB, productive cough w sputum color change, and fever, found to have elevated HR and RR, hypoxia, lactate 2.4, and CT showing possible acute infiltrates, concerning for CAP causing sepsis and COPD exacerbation leading to acute on chronic hypoxic respiratory failure. Hospital course c/b acute pneumothorax requiring chest tube placement on 02/14, which was exchanged on 02/18 for larger tube due to increasing PTX and persistent air leak. Pt did undergo CT guided lung biopsy of cavitary lesion on 02/15 with results pending. Persistent air leak and PTX. Underwent blood patch with IR 02/23. Cavitary lung lesion: - CT-guided Bx on 02/15 didn't reveal any malignancy, likely from infection. - Pulmonary service is following along with ID service. - On Augmentin and voriconazole (for fundal elemetns detected in her sputum sample) for 8 weeks as per ID. - Patient remains afebrile. Her leukocytosis is fluctuating likely secondary to steroids. Pneumothorax: - Pulm managing, her chest tube was clamped on 03/02 and follow-up chest x-ray was ordered which revealed residual loculated PTX. - She was placed on hemlich valve by pulm on 03/03/2019 given the stability of her symptoms. - Cardiothoracic team believes that the patient needed long-term chest tube as she is not a surgical candidate Severe emphysematous COPD: - continue nebs home inhalers, and slowly taper prednisone ( on 20 mg now and will go on 10mg on 03/05 as per Pulm). Acute on Chronic hypoxic and hypercapneic respiratory failure: -On home 5L, now on 7 L HFpEF: lasix 40 po daily (home dose is 20-40 daily prn) Severe protein calorie malnutrition: see nutrition notes CAD: home statin, ASA HTN: lopressor as above Anxiety: home celexa 20 daily GERD: H2B bid Chronic Anemia- baseline in recent months 8s-10s, sub q hep resumed at q12 h ppx dosing PPx: sqh Lines: PIV, chest tube Code: DNRCC-A Dispo: Discussed with social media specialist and community case manager regarding her disposition. Patient may be accepted on Thursday at SNF. - Time Spent with Patient Total time spent is greater than 50% in coordination of care (as documented) at patient's floor/unit and/or counseling patient: Plan of Care Discussed with: social work Internal Medicine: Result - Labs CBC & Chem 7: 03/04/19 05:08 03/04/19 05:08 Labs: Short CBC 03/04/19 Range/Units 05:08 WBC 12.1 H (4.3-11.1) K/mcL Hgb 9.1 L (11.5-15.4) g/dL Hct 31.1 L (35.3-44.9) % Plt Count 383 (140-400) K/mcL BMP 03/04/19 05:08 Sodium 136 Potassium 4.4 Chloride 96 L Carbon Dioxide 34 H BUN 24 H Creatinine 0.57 L Glucose 119 H Calcium 9.3 - ABG Interpretation ABG results: ABG ABG pH 7.48 pH Units (7.32-7.45) H 02/13/19 23:42 ABG pCO2 44 mmHg (35-45) 02/13/19 23:42 ABG pO2 62 mmHg (85-104) L 02/13/19 23:42 ABG O2 Saturation 93 % (95-98) L 02/13/19 23:42 PT/INR, D-dimer PT 12.2 Seconds (9.4-12.1) H 03/01/19 06:23 967 ng/mLFEU (0-500) H 02/10/19 17:14 - Impressions Impressions Chest X-Ray 03/03/19 14:51 IMPRESSION: Right chest tube remains in place demonstrating what appears to be a persistent right apical pneumothorax. Otherwise, stable chest demonstrating severe emphysematous changes D/ / Gibran Helton MD / Gibran Helton MD Interpreting Provider: Gibran Helton MD Chest X-Ray 03/04/19 08:04 IMPRESSION: No significant change in right hydropneumothorax. D/ / Eufemia Wise MD / Eufemia Wise MD Interpreting Provider: Eufemia Wise MD Consult Discharge Plan - Plan Referrals: Aren Malik Jr, MD [Primary Care Provider] -
[2019-03-04] MEDS ORDERED: *HR* LORazepam 0.5 MG TABLET PO ONE (15:50)
[2019-03-04] MEDS: *HR* OxyCODONE Immed Rel 5 MG TABLET PO PRN (21:00)
[2019-03-05] MEDS: Levalbuterol Neb 0.63 MG/3 ML IH SCH ×4 (03:38→22:09)
[2019-03-05] MEDS: *HR* Heparin 5,000 UNIT/ML VIAL SQ SCH ×2 (05:06→05:07)
[2019-03-05] MEDS: Ondansetron 4 MG/2 ML VIAL IVP PRN ×3 (05:06→12:16)
[2019-03-05 05:49] LABS: Hemoglobin 8.6 g/dL (11.5-15.4)
[2019-03-05 05:50] LABS: Basophils % 0.1 %; Nucleated Red Blood Cells 0.2 /100 WBC (0)
[2019-03-05 05:51] LABS: Hematocrit 30.1 % (35.3-44.9); Mean Corpuscular HGB Conc 28.6 g/dL (31.6-35.5); Mean Corpuscular Hemoglobin 28.6 pg (28.0-33.3); Platelet Count 402 K/mcL (140-400); Red Blood Count 3.01 M/mcL (3.82-4.97); Red Cell Distribution Width 16.1 % (11.5-14.5); Segmented Neutrophils % 78.1 %; White Blood Count 12.6 K/mcL (4.3-11.1)
[2019-03-05 05:52] LABS: Eosinophils # 0.1 K/mcL (0.0-0.6); Eosinophils % 0.5 %; Immature Granulocytes % 0.7 % (0-4); Lymphocytes % 12.3 %; Monocytes % 8.3 %; Neutrophils # 9.8 K/mcL (1.6-8.9)
[2019-03-05 06:07] LABS: Lymphocytes # 1.6 K/mcL (0.6-4.6); Monocytes # 1.1 K/mcL (0.0-1.3)
[2019-03-05 06:10] LABS: BUN/Creatinine Ratio 37 (6-26); Blood Urea Nitrogen 27 mg/dL (8-23); Calcium 9.5 mg/dL (8.6-10.3); Carbon Dioxide 36 mEq/L (23-29); Chloride 96 mEq/L (98-107); Glucose 120 mg/dL (70-105); Osmolality,Calculated 292 (280-300); Potassium 4.9 mEq/L (3.5-5.1); Sodium 138 mEq/L (136-145); eGFR For African Americans > 60 (> 60); eGFR For Non-African Americans > 60 (> 60)
[2019-03-05 06:26] LABS: Anisocytosis 1+ (Not Present); Hypochromasia Present (Not Present); Platelet Estimate Normal (Normal)
[2019-03-05 06:27] LABS: Large Platelets Present (Not Present)
[2019-03-05] MEDS: predniSONE 20 MG TABLET PO SCH (08:04)
[2019-03-05] MEDS: Furosemide 40 MG TABLET PO SCH (08:04)
[2019-03-05] MEDS: Magnesium Oxide 400 MG TABLET PO SCH (08:04)
[2019-03-05] MEDS: Lactobacillus 1 EACH CAP.SPRINK PO SCH (08:04)
[2019-03-05] MEDS: Aspirin Enteric Coated 81 MG Tablet PO SCH (08:04)
[2019-03-05] MEDS: Loratadine 10 MG TABLET PO SCH (08:04)
[2019-03-05] MEDS ORDERED: predniSONE 10 MG TABLET PO SCH (09:00)
--- NOTE | 2019-03-05 12:49 | Internal Med Progress Note ---
Hospitalist Progress Note - Encounter Date of Encounter: 03/05/19 Time of Encounter: 10:00 - Subjective Interval History: No events overnight. Patient had no chest pain, palpitation or shortness of breath. Patient denied fever or chills or night sweats. Patient has no nausea/vomiting or abdominal pain - Exam Vitals: Temp Pulse Resp BP Pulse Ox 97.7 F 87 16 112/71 92 03/05/19 10:32 03/05/19 10:32 03/05/19 10:32 03/05/19 10:32 03/05/19 10:32 Exam: Gen.: Alert and oriented 3 - Head Head exam: Present: atraumatic, normocephalic - ENT ENT exam: Present: normal exam - Respiratory Diminished lung sounds bilaterally, right-sided chest tube with Heimlich Valve - Cardiovascular Cardiovascular exam: Present: RRR, +S1, +S2. Absent: diastolic murmur, gallop, rubs, systolic murmur - GI/Abdominal GI/Abdominal exam: Present: normal bowel sounds, soft, no peritoneal signs. Ab sent: distended, tenderness - Extremities Exam Extremities exam: Present: full ROM, normal capillary refill, warm, radial pulses palpable and symmetrical. Absent: calf tenderness, cyanotic, pedal edema - Neurological Exam Neurological exam: Present: CN II-XII intact, oriented X3, no focal deficits. Absent: pronater drift, facial droop, speech deficit - Psychiatric Psychiatric exam: Present: normal affect, normal mood - Assessment and Plan (1) Acute exacerbation of chronic obstructive airways disease Current Visit: Yes Status: Acute (2) Cavitary lesion of lung Current Visit: Yes Status: Chronic (3) Pneumothorax on right Current Visit: Yes Status: Acute (4) Healthcare-associated pneumonia Current Visit: Yes Status: Acute (5) Leukocytosis Current Visit: Yes Status: Acute - Summary of Assessment and Plan Summary of Assessment and Plan: Nany Peck is a 73 F w hx severe COPD on 5L c/b fibrosis and bronchiectasis, RLL cavitary lesion suspicious for abscess v malignancy, HFpEF, CAD s/p stents, HTN, MVP, anxiety, who on 02/10 p/w progressive SOB, productive cough w sputum color change, and fever, found to have elevated HR and RR, hypoxia, lactate 2.4, and CT showing possible acute infiltrates, concerning for CAP causing sepsis and COPD exacerbation leading to acute on chronic hypoxic respiratory failure. Hospital course c/b acute pneumothorax requiring chest tube placement on 02/14, which was exchanged on 02/18 for larger tube due to increasing PTX and persistent air leak. Pt did undergo CT guided lung biopsy of cavitary lesion on 02/15 with results pending. Persistent air leak and PTX. Underwent blood patch with IR 02/23. Cavitary lung lesion: - CT-guided Bx on 02/15 didn't reveal any malignancy, likely from infection. - Pulmonary service is following along with ID service. - On Augmentin and voriconazole (for fungal elemetns detected in her sputum sample) for 8 weeks as per ID. - Patient remains afebrile. Her leukocytosis is fluctuating likely secondary to steroids. Pneumothorax: - Pulm managing, her chest tube was clamped on 03/02 and follow-up chest x-ray was ordered which revealed residual loculated PTX. - She was placed on hemlich valve by pulm on 03/03/2019 given the stability of her symptoms. - Cardiothoracic team believes that the patient needed long-term chest tube as she is not a surgical candidate Severe emphysematous COPD: - continue nebs home inhalers, and slowly taper prednisone ( on 20 mg now and will go on 10mg on 03/05 as per Pulm). - Now on 7L of O2, titration to Sa O2 89-92%. discussed with RN. Leukocytosis: - Likely from steroids, will check CBC qother day. Acute on Chronic hypoxic and hypercapneic respiratory failure: -On home 5L, now on 7 L HFpEF: lasix 40 po daily (home dose is 20-40 daily prn) Severe protein calorie malnutrition: see nutrition notes CAD: home statin, ASA HTN: lopressor as above Anxiety: home celexa 20 daily GERD: H2B bid Chronic Anemia- baseline in recent months 8s-10s, sub q hep resumed at q12 h ppx dosing PPx: sqh Lines: PIV, chest tube Code: [id number]-A Dispo: Discussed with social work manager and correctional casework specialist regarding her disposition. Patient may be accepted on Thursday at SNF. - Time Spent with Patient Total time spent is greater than 50% in coordination of care (as documented) at patient's floor/unit and/or counseling patient: Plan of Care Discussed with: patient Internal Medicine: Result - Labs CBC & Chem 7: 03/05/19 05:31 03/05/19 05:31 Labs: Short CBC 03/05/19 Range/Units 05:31 WBC 12.6 H (4.3-11.1) K/mcL Hgb 8.6 L (11.5-15.4) g/dL Hct 30.1 L (35.3-44.9) % Plt Count 402 H (140-400) K/mcL Neutrophils # 9.8 H (1.6-8.9) K/mcL BMP 03/05/19 05:31 Sodium 138 Potassium 4.9 Chloride 96 L Carbon Dioxide 36 H BUN 27 H Creatinine 0.73 Glucose 120 H Calcium 9.5 - ABG Interpretation ABG results: ABG ABG pH 7.48 pH Units (7.32-7.45) H 02/13/19 23:42 ABG pCO2 44 mmHg (35-45) 02/13/19 23:42 ABG pO2 62 mmHg (85-104) L 02/13/19 23:42 ABG O2 Saturation 93 % (95-98) L 02/13/19 23:42 PT/INR, D-dimer PT 12.2 Seconds (9.4-12.1) H 03/01/19 06:23 967 ng/mLFEU (0-500) H 02/10/19 17:14 Consult Discharge Plan - Plan Instructions: Chest Tubes (DC) Additional Instructions: This information will help you care for your Heimlich valve and chest tube when you leave the hospital. About Your Heimlich Valve and Chest Tube Your chest tube is a hollow flexible tube placed between your ribs and into the space between the inner and outer linings of your lungs, which is called the pleural space. Your Heimlich valve is a one-way valve that connects to your chest tube. The valve lets extra air and fluid out of your chest, allowing your lung to fully expand. You may go home with a Heimlich valve if your lung is still leaking air after your surgery. Caring for Your Heimlich Valve and Chest Tube Your chest tube will be covered with a bandage. Change your bandage every 7 da ys. Clean the skin around your chest tube with soap and water before applying the new bandage. If your bandage is wet, soiled, has come loose, or started to lift from your skin, apply a new one. If your chest tube is draining fluid, your Heimlich valve will be connected to either a plastic container or a drainage bag. The type of collection device used will depend on how much fluid is draining. If your Heimlich valve is connected to a small plastic container, write down the amount in the container and empty it into the toilet. If your Heimlich valve is connected to a drainage bag, your doctor may want you to measure the amount of fluid that is draining. Write down the amount and empty the bag into the toilet. To remove the fluid, open the valve at the bottom of the drainage bag and pour it into the toilet. The chest tube may irritate your chest wall, causing you some discomfort. Your doctor can prescribe pain medication, if you need it. Showering with your Heimlich valve You may take showers but you will need to keep your bandage dry. A hand-held showerhead can help direct the water away from your bandage. You will also need to cover your bandage. If the bandage gets wet, you will need to change it. Wet bandages are a common cause of skin problems. Fixing a disconnected Heimlich valve The Heimlich valve should never be disconnected from your chest tube. If it becomes disconnected, follow these steps: 1. Reconnect it immediately by inserting the blue end of the valve into your chest tube. 2. Cough deeply. This will help get rid of any extra air that may have built up in your pleural space while disconnecting your Heimlich valve. 3. Call your doctors office. Call Your Doctor or Nurse if: You have a temperature of 101 F (38.3 C) or higher Your skin around the chest tube is red, puffy, or feels warm and painful when you touch it You have pain that is not relieved by your pain medication The amount of drainage from the chest tube increases Referrals: Aren Malik Jr, MD [Primary Care Provider] - (5) Leukocytosis Qualifiers: Leukocytosis type: unspecified Qualified Code(s): D72.829 - Elevated white blood cell count, unspecified
[2019-03-05] MEDS ORDERED: *HR* LORazepam 0.5 MG TABLET PO ONE (15:12)
[2019-03-05] MEDS: *HR* HYDROcodone/Acet 5/325 mg TABLET PO PRN (20:12)
[2019-03-05] MEDS: *HR* LORazepam 0.5 MG TABLET PO PRN (20:12)
[2019-03-06] MEDS: Levalbuterol Neb 0.63 MG/3 ML IH SCH ×4 (03:50→21:46)
[2019-03-06] MEDS: *HR* Heparin 5,000 UNIT/ML VIAL SQ SCH ×2 (05:42→18:17)
[2019-03-06] MEDS: Lactobacillus 1 EACH CAP.SPRINK PO SCH (09:01)
[2019-03-06] MEDS: predniSONE 20 MG TABLET PO SCH (09:01)
[2019-03-06] MEDS: Furosemide 40 MG TABLET PO SCH (09:01)
[2019-03-06] MEDS: Magnesium Oxide 400 MG TABLET PO SCH (09:01)
[2019-03-06] MEDS: Aspirin Enteric Coated 81 MG Tablet PO SCH (09:01)
[2019-03-06] MEDS: Loratadine 10 MG TABLET PO SCH (09:02)
[2019-03-06] MEDS: *HR* LORazepam 0.5 MG TABLET PO PRN ×2 (12:11→19:42)
--- NOTE | 2019-03-06 13:03 | Internal Med Progress Note ---
Hospitalist Progress Note - Encounter Date of Encounter: 03/06/19 Time of Encounter: 06:00 - Subjective Interval History: Patient was seen today with no change in her status. Her anxiety is better controlled with ativan. She is still requiring 8 L of oxygen and her chest x- ray in the morning was unchanged. She is having yellowish sputum which is also unchanged. - Exam Vitals: Temp Pulse Resp BP Pulse Ox 98.1 F 106 18 114/76 93 03/06/19 07:21 03/06/19 07:21 03/06/19 07:21 03/06/19 07:21 03/06/19 07:21 Exam: Gen.: Alert and oriented 3 - Head Head exam: Present: atraumatic, normocephalic - ENT ENT exam: Present: normal exam - Respiratory Diminished lung sounds bilaterally, right-sided chest tube with Heimlich Valve - Cardiovascular Cardiovascular exam: Present: RRR, +S1, +S2. Absent: diastolic murmur, gallop, rubs, systolic murmur. +1 bilateral lower extremity edema up to do any - GI/Abdominal GI/Abdominal exam: Present: normal bowel sounds, soft, no peritoneal signs. Absent: distended, tenderness - Extremities Exam Extremities exam: Present: full ROM, normal capillary refill, warm, radial pulses palpable and symmetrical. Absent: calf tenderness, cyanotic, pedal edema - Neurological Exam Neurological exam: Present: CN II-XII intact, oriented X3, no focal deficits. Absent: pronater drift, facial droop, speech deficit - Psychiatric Psychiatric exam: Present: normal affect, normal mood - Assessment and Plan (1) Acute exacerbation of chronic obstructive airways disease Current Visit: Yes Status: Acute (2) Cavitary lesion of lung Current Visit: Yes Status: Chronic (3) Pneumothorax on right Current Visit: Yes Status: Acute (4) Healthcare-associated pneumonia Current Visit: Yes Status: Acute (5) Leukocytosis Current Visit: Yes Status: Acute - Summary of Assessment and Plan Summary of Assessment and Plan: Nany Peck is a 73 F w hx severe COPD on 5L c/b fibrosis and bronchiectasis, RLL cavitary lesion suspicious for abscess v malignancy, HFpEF, CAD s/p stents, HTN, MVP, anxiety, who on 02/10 p/w progressive SOB, productive cough w sputum color change, and fever, found to have elevated HR and RR, hypoxia, lactate 2.4, and CT showing possible acute infiltrates, concerning for CAP causing sepsis and COPD exacerbation leading to acute on chronic hypoxic respiratory failure. Hospital course c/b acute pneumothorax requiring chest tube placement on 02/14, which was exchanged on 02/18 for larger tube due to increasing PTX and persistent air leak. Pt did undergo CT guided lung biopsy of cavitary lesion on 02/15 with results pending. Underwent blood patch with IR 02/23 and then Helmich valve on 03/03 by Pulm. Cavitary lung lesion: - CT-guided Bx on 02/15 didn't reveal any malignancy, likely from infection. - Pulmonary service is following along with ID service. - On Augmentin and voriconazole (for fungal elemetns detected in her sputum sample) for 8 weeks as per ID. - Patient remains afebrile. Her leukocytosis is fluctuating likely secondary to steroids. Pneumothorax: - Pulm managing, her chest tube was clamped on 03/02 and follow-up chest x-ray was ordered which revealed residual loculated PTX. - She was placed on hemlich valve by pulm on iven the stability of her symptoms. - Cardiothoracic team believes that the patient needed long-term chest tube as she is not a surgical candidate Severe emphysematous COPD: - continue nebs home inhalers, and slowly taper prednisone ( on 20 mg now and will go on 10mg on 03/05 as per Pulm). - Now on 7L of O2, titration to Sa O2 89-92%. discussed with RN. Leukocytosis: - Likely from steroids, will check CBC qother day. Acute on Chronic hypoxic and hypercapneic respiratory failure: -On home 5L, now on 7 L HFpEF: lasix 40 po daily (home dose is 20-40 daily prn). will give extra dose of IV lasix today, i/o Severe protein calorie malnutrition: see nutrition notes CAD: home statin, ASA HTN: lopressor as above Anxiety: home celexa 20 daily GERD: H2B bid Chronic Anemia- baseline in recent months 8s-10s, sub q hep resumed at q12 h ppx dosing PPx: sqh Lines: PIV, chest tube Code: DNRCC-A Dispo: Discussed with social services manager and case liner regarding her disposition. Patient may be accepted on Thursday at SNF. - Time Spent with Patient Total time spent is greater than 50% in coordination of care (as documented) at patient's floor/unit and/or counseling patient: Plan of Care Discussed with: patient Internal Medicine: Result - Labs CBC & Chem 7: 03/05/19 05:31 03/05/19 05:31 - ABG Interpretation ABG results: ABG ABG pH 7.48 pH Units (7.32-7.45) H 02/13/19 23:42 ABG pCO2 44 mmHg (35-45) 02/13/19 23:42 ABG pO2 62 mmHg (85-104) L 02/13/19 23:42 ABG O2 Saturation 93 % (95-98) L 02/13/19 23:42 PT/INR, D-dimer PT 12.2 Seconds (9.4-12.1) H 03/01/19 06:23 967 ng/mLFEU (0-500) H 02/10/19 17:14 - Impressions Impressions Chest X-Ray 03/06/19 10:24 IMPRESSION: Unchanged loculated right hydropneumothorax. Unchanged cavitary lower lobe consolidation. D/ / 03/06/2019 10:52:54 Remigio Grey MD / [facility] Interpreting Provider: Remigio Grey MD Consult Discharge Plan - Plan Instructions: Chest Tubes (DC) Additional Instructions: This information will help you care for your Heimlich valve and chest tube when you leave the hospital. About Your Heimlich Valve and Chest Tube Your chest tube is a hollow flexible tube placed between your ribs and into the space between the inner and outer linings of your lungs, which is called the pleural space. Your Heimlich valve is a one-way valve that connects to your chest tube. The valve lets extra air and fluid out of your chest, allowing your lung to fully expand. You may go home with a Heimlich valve if your lung is still leaking air after your surgery. Caring for Your Heimlich Valve and Chest Tube Your chest tube will be covered with a bandage. Change your bandage every 7 days. Clean the skin around your chest tube with soap and water before applying the new bandage. If your bandage is wet, soiled, has come loose, or started to lift from your sk in, apply a new one. If your chest tube is draining fluid, your Heimlich valve will be connected to either a plastic container or a drainage bag. The type of collection device used will depend on how much fluid is draining. If your Heimlich valve is connected to a small plastic container, write down the amount in the container and empty it into the toilet. If your Heimlich valve is connected to a drainage bag, your doctor may want you to measure the amount of fluid that is draining. Write down the amount and empty the bag into the toilet. To remove the fluid, open the valve at the bottom of th e drainage bag and pour it into the toilet. The chest tube may irritate your chest wall, causing you some discomfort. Your doctor can prescribe pain medication, if you need it. Showering with your Heimlich valve You may take showers but you will need to keep your bandage dry. A hand-held showerhead can help direct the water away from your bandage. You will also need to cover your bandage. If the bandage gets wet, you will need to change it. Wet bandages are a common cause of skin problems. Fixing a disconnected Heimlich valve The Heimlich valve should never be disconnected from your chest tube. If it becomes disconnected, follow these steps: 1. Reconnect it immediately by inserting the blue end of the valve into your chest tube. 2. Cough deeply. This will help get rid of any extra air that may have built up in your pleural space while disconnecting your Heimlich valve. 3. Call your doctors office. Call Your Doctor or Nurse if: You have a temperature of 101 F (38.3 C) or higher Your skin around the chest tube is red, puffy, or feels warm and painful when you touch it You have pain that is not relieved by your pain medication The amount of drainage from the chest tube increases Referrals: Aren Malik Jr, MD [Primary Care Provider] - (5) Leukocytosis Qualifiers: Leukocytosis type: unspecified Qualified Code(s): D72.829 - Elevated white blood cell count, unspecified
[2019-03-06] MEDS ORDERED: Furosemide 40 MG in 0.9 % Sodium Chloride 50 ML IV ONE (17:00)
[2019-03-06] MEDS ORDERED: Furosemide 40 MG/4 ML VIAL IVP ONE (17:00)
[2019-03-06] MEDS: *HR* HYDROcodone/Acet 5/325 mg TABLET PO PRN (19:42)
[2019-03-07] MEDS: Levalbuterol Neb 0.63 MG/3 ML IH SCH ×3 (03:48→15:45)
[2019-03-07] MEDS: *HR* Heparin 5,000 UNIT/ML VIAL SQ SCH (05:07)
[2019-03-07 05:47] LABS: Hematocrit 26.7 % (35.3-44.9); Hemoglobin 7.9 g/dL (11.5-15.4); Mean Corpuscular HGB Conc 29.6 g/dL (31.6-35.5); Mean Corpuscular Hemoglobin 28.1 pg (28.0-33.3); Platelet Count 365 K/mcL (140-400); Red Blood Count 2.81 M/mcL (3.82-4.97); White Blood Count 10.6 K/mcL (4.3-11.1)
[2019-03-07 06:05] LABS: Alanine Aminotransferase 38 Units/L (7-52); Albumin 2.8 g/dL (3.5-5.7); Albumin/Globulin Ratio 0.9 (1.1-2.2); Alkaline Phosphatase 126 Units/L (34-104); Aspartate Amino Transferase 27 Units/L (13-39); BUN/Creatinine Ratio 48 (6-26); Bilirubin,Direct 0.1 mg/dL (0.0-0.2); Bilirubin,Indirect 0.1 mg/dL (0.0-1.2); Bilirubin,Total 0.2 mg/dL (0.3-1.0); Blood Urea Nitrogen 30 mg/dL (8-23); Calcium 8.7 mg/dL (8.6-10.3); Carbon Dioxide 36 mEq/L (23-29); Chloride 99 mEq/L (98-107); Globulin 3.1 g/dL (2.4-3.5); Glucose 116 mg/dL (70-105); Osmolality,Calculated 295 (280-300); Potassium 4.2 mEq/L (3.5-5.1); Sodium 139 mEq/L (136-145); Total Protein 5.9 g/dL (6.4-8.9); eGFR For African Americans > 60 (> 60); eGFR For Non-African Americans > 60 (> 60)
[2019-03-07 07:27] VITALS: BP 110/68
[2019-03-07] MEDS: Aspirin Enteric Coated 81 MG Tablet PO SCH (09:11)
[2019-03-07] MEDS: Lactobacillus 1 EACH CAP.SPRINK PO SCH (09:12)
[2019-03-07] MEDS: Loratadine 10 MG TABLET PO SCH (09:12)
[2019-03-07] MEDS: Magnesium Oxide 400 MG TABLET PO SCH (09:12)
[2019-03-07] MEDS: *HR* LORazepam 0.5 MG TABLET PO PRN (09:12)
[2019-03-07] MEDS: Furosemide 40 MG TABLET PO SCH (09:12)
[2019-03-07] MEDS: predniSONE 20 MG TABLET PO SCH (09:12)
--- NOTE | 2019-03-07 12:36 | Discharge Summary ---
- NOTES TO OUTPATIENT PROVIDER Notes to Outpatient Provider: Finish total of 8 weeks course of antifungal and antibiotics (6 weeks left). Follow-up with pulmonary and infectious disease. Lovastatin was stopped due to interaction with voriconazole, may resume after stopping antifungal. Finish prednisone taper. Orders not resulted at time of discharge: Pending orders 02/15/19 15:57 AFB Culture, Tissue [TB] Routine AFB Smear [TB] Routine Fungal Culture [MYC] Routine Date of Encounter: 03/07/19 Time of Encounter: 09:20 - Discharge Diagnosis (1) Cavitary lesion of lung Priority: Primary Status: Acute (2) Pneumothorax on right Priority: Secondary Status: Acute (3) Acute exacerbation of chronic obstructive airways disease Priority: Secondary Status: Chronic (4) Healthcare-associated pneumonia Priority: Secondary Status: Acute (5) Leukocytosis Priority: Secondary Status: Chronic Qualifiers: Leukocytosis type: unspecified Qualified Code(s): D72.829 - Elevated white blood cell count, unspecified Hospital course: Nany Peck is a 73 F w hx severe COPD on 5L c/b fibrosis and bronchiectasis, RLL cavitary lesion suspicious for abscess v malignancy, HFpEF, CAD s/p stents, HTN, MVP, anxiety, who on 02/10 p/w progressive SOB, productive cough w sputum color change, and fever, found to have elevated HR and RR, hypoxia, lactate 2.4, and CT showing possible acute infiltrates, concerning for CAP causing sepsis and COPD exacerbation leading to acute on chronic hypoxic respiratory failure. Hospital course c/b acute pneumothorax requiring chest tube placement on 02/14, which was exchanged on 02/18 for larger tube due to increasing PTX and persistent air leak. Pt did undergo CT guided lung biopsy of cavitary lesion on 02/15 with results pending. Underwent blood patch with IR 02/23 and then Helmich valve on 03/03 by Pulm. rest of the management as following: Cavitary lung lesion: - CT-guided Bx on 02/15 didn't reveal any malignancy, likely from infection. Pulmonary and ID followed and their recommendations to continue Augmentin and voriconazole (for fungal elemetns detected in her sputum sample) for 8 weeks as per ID (6 WEEKS left). - Patient remains afebrile. Her leukocytosis is fluctuat ing likely secondary to steroids. Pneumothorax: - her chest tube was clamped on 03/02 and follow-up chest x-ray revealed residual unchanged loculated PTX. She was placed on hemlich valve by pulm on iven the stability of her symptoms. Severe emphysematous COPD: - On - L, was managed with duonebs and home inhalers, and slowly taper prednisone ( on 20 mg now and will go on 10mg on 03/05 as per Pulm). We continue steroid taper for extra 2 weeks. Today, patient is hemodynamically stable. Her symptoms are slowly improving. She will be discharged to SNF in stable condition Discharge discussed with: patient - Time Spent with Patient Total time spent providing and/or coordinating discharge services: 55minutes - Discharge Medications Prescriptions: New LORazepam [Ativan] 0.5 mg PO BID PRN 5 Days #10 tablet PRN Reason: Anxiety Amoxicillin/Clavulanate [Augmentin] 875 mg PO BIDWM #84 tablet Furosemide [Lasix] 40 mg PO DAILY tablet predniSONE [PredniSONE] 10 mg PO DAILY #30 tablet Voriconazole [VFend] 200 mg PO Q12H #84 tablet Continued Loratadine [Claritin] 10 mg PO DAILY Citalopram [CeleXA] 20 mg PO DAILY Metoprolol [Lopressor] 25 mg PO BID Nitroglycerin [Nitrostat] 0.4 mg SL Q5M PRN PRN Reason: Chest Pain Budesonide/Formoterol 160/4.5 [Symbicort 160/4.5] 2 puff IH BIDR L. Acidophilus/Pectin, [place] [Acidophilus Probiotic Capsule] 1 cap PO DAILY raNITIdine HCl [Zantac] 150 mg PO BID Multivitamin [One Daily] 1 tab PO DAILY Aspirin [Lo-Dose Aspirin EC] 81 mg PO DAILY Menthol [Cough Drops] 9.1 mg PO Q2H PRN #0 lozenge PRN Reason: Cough Melatonin 6 mg PO HS Guaifenesin [Mucinex] 600 mg PO BID PRN PRN Reason: Congestion Albuterol Neb [Proventil Neb] 2.5 mg PO TID PRN PRN Reason: Shortness Of Breath Benzonatate [Tessalon] 200 mg PO HS PRN PRN Reason: Cough Diclofenac Sodium [Voltaren] 75 mg PO DAILY PRN PRN Reason: Pain Nystatin [Nystatin Suspension] 4 ml PO QID Promethazine [Phenergan] 25 mg PO Q6H PRN PRN Reason: Nausea Umeclidinium Brm/Vilanterol Tr [Anoro Ellipta 62.5-25 Mcg INH] 2 puff PO DAILY Discontinued Lovastatin [Mevacor] 40 mg PO HS Albuterol Sulfate [Proventil Inhaler] 2 puff IH Q4HR PRN #2 hfa.aer.ad PRN Reason: Shortness Of Breath/Wheezing Ipratropium/Albuterol Neb [Duoneb] 3 ml IH Q4HR PRN PRN Reason: Cough Potassium Chloride [K-Tab ER] 20 meq PO DAILY Furosemide [Lasix] 40 mg PO QAM PRN #30 tablet PRN Reason: Fluid Retention Home Medications: Citalopram [CeleXA] 20 mg PO DAILY 02/05/16 [History] Loratadine [Claritin] 10 mg PO DAILY 02/05/16 [History] Metoprolol [Lopressor] 25 mg PO BID 02/05/16 [History] Nitroglycerin [Nitrostat] 0.4 mg SL Q5M PRN 02/05/16 [History] Aspirin [Lo-Dose Aspirin EC] 81 mg PO DAILY 11/12/18 [History] Budesonide/Formoterol 160/4.5 [Symbicort 160/4.5] 2 puff IH BIDR 11/12/18 [History] L. Acidophilus/Pectin, [place] [Acidophilus Probiotic Capsule] 1 cap PO DAILY 11/12/18 [History] Multivitamin [One Daily] 1 tab PO DAILY 11/12/18 [History] raNITIdine HCl [Zantac] 150 mg PO BID 11/12/18 [History] Menthol [Cough Drops] 9.1 mg PO Q2H PRN #0 lozenge 11/19/18 [Rx] Melatonin 6 mg PO HS 12/09/18 [History] Guaifenesin [Mucinex] 600 mg PO BID PRN 12/24/18 [History] Albuterol Neb [Proventil Neb] 2.5 mg PO TID PRN 02/11/19 [History] Benzonatate [Tessalon] 200 mg PO HS PRN 02/11/19 [History] Diclofenac Sodium [Voltaren] 75 mg PO DAILY PRN 02/11/19 [History] Nystatin [Nystatin Suspension] 4 ml PO QID 02/11/19 [History] Promethazine [Phenergan] 25 mg PO Q6H PRN 02/11/19 [History] Umeclidinium Brm/Vilanterol Tr [Anoro Ellipta 62.5-25 Mcg INH] 2 puff PO DAILY 02/11/19 [History] Amoxicillin/Clavulanate [Augmentin] 875 mg PO BIDWM #84 tablet 03/07/19 [Rx] Furosemide [Lasix] 40 mg PO DAILY tablet 03/07/19 [Rx] LORazepam [Ativan] 0.5 mg PO BID PRN 5 Days #10 tablet 03/07/19 [Rx] Voriconazole [VFend] 200 mg PO Q12H #84 tablet 03/07/19 [Rx] predniSONE [PredniSONE] 10 mg PO DAILY #30 tablet 03/07/19 [Rx] Allergies/Adverse Reactions: Allergy/AdvReac Type Severity Reaction Status Date / Time clarithromycin [From Biaxin] Allergy Gastrointestinal Verified 02/11/19 14:48 Upset codeine AdvReac See Verified 02/11/19 14:48 Comments lansoprazole [From Prevacid] AdvReac ulcer Verified 02/11/19 14:48 lisinopril AdvReac Cough Verified 02/11/19 14:48 meloxicam [From Mobic] AdvReac ulcer Verified 02/11/19 14:48 opium (anthroposophic) AdvReac nausea/vomi Verified 02/11/19 14:48 [Opium (Anthroposophic)] ting Date of admission: 02/11/19 10:41 Primary care physician: Aren Malik Jr, MD Consults: 02/10/19 21:45 Consult to Infectious Diseases [CONS] Routine Consulting Provider: Infectious Disease [place] Reason for Consult: Cavitary lung lesion Call Completed: No Consult to Pulmonology [CONS] Routine Consulting Provider: Pulm Crit Care [facility] Sleep [facility] Reason for Consult: Cavitary lung lesion Call Completed: No 02/11/19 10:48 Consult to Reimbursement Counselor [CONS] Routine Reason for SW Consult: Discharge plan 02/14/19 03:27 Consult to Surgery [CONS] Stat Consulting Provider: Surgery [facility] Reason for Consult: Patient has developed a large right pneumothorax w/atelectasis to the right lung base since CXR and chest CTA on 02/10/19. Pt. has developed severe SOB and dyspnea over the past several hours. Call Completed: Yes 02/14/19 12:54 Consult to Interventional Radiology [CONS] Routine Consulting Provider: Radiology Interventional [place] Reason for Consult: CT guided Lung biopsy and Chest tube replacement for pneumothorax Time Notified: 12:50 Call Completed: Yes 02/18/19 11:05 Consult to Interventional Radiology [CONS] Routine Consulting Provider: Radiology Interventional [facility] Reason for Consult: Replace current chest tube with larger size chest tube. She currently has a small catheter in place. Dr. Lira recommended a 28 portuguese. Time Notified: 11:08 Call Completed: Yes 02/21/19 14:50 Consult to Palliative Care [CONS] Routine Comment: Consulting Provider: Palliative Care [facility] Reason for Consult: severe COPD and structural lung disease c/b pneumothorax, resistant to hospice but willing to entertain goals of care and palliative discussion Call Completed: Yes 02/23/19 13:12 Consult to Interventional Radiology [CONS] Routine Consulting Provider: Radiology Interventional [facility] Reason for Consult: intermittent air leak for blood patch Time Notified: 13:00 Call Completed: Yes 02/25/19 10:48 Consult to Thoracic Surgery [CONS] Routine Consulting Provider: Cardiothoracic Surgery [place] Reason for Consult: Persistent Pneumothorax Call Completed: Yes - Constitutional Vitals: Temp Pulse Resp BP Pulse Ox 97.9 F 105 18 110/68 97 03/07/19 07:26 03/07/19 07:26 03/07/19 07:26 03/07/19 07:26 03/07/19 07:26 General appearance: Present: A&O X 3, pleasant, no acute distress Exam: Gen.: Alert and oriented 3 - Head Head exam: Present: atraumatic, normocephalic - ENT ENT exam: Present: normal exam - Respiratory Diminished lung sounds bilaterally, right-sided chest tube with Heimlich Valve - Cardiovascular Cardiovascular exam: Present: RRR, +S1, +S2. Absent: diastolic murmur, gallop, rubs, systolic murmur. +1 bilateral lower extremity edema - GI/Abdominal GI/Abdominal exam: Present: normal bowel sounds, soft, no peritoneal signs. Absent: distended, tenderness - Extremities Exam Extremities exam: Present: full ROM, normal capillary refill, warm, radial pulses palpable and symmetrical. Absent: calf tenderness, cyanotic, pedal edema - Neurological Exam Neurological exam: Present: CN II-XII intact, oriented X3, no focal deficits. Absent: pronater drift, facial droop, speech deficit - Psychiatric Psychiatric exam: Present: normal affect, normal mood - Patient Status Disposition: Transfer SNF Condition: Fair Functional capacity at discharge: uses cane/walker Overall status at discharge: patient is back to baseline - Ambulatory Orders Ambulatory Orders: Misc. Order2 Time Frame: 1 Week, Facility: [facility], Location: Lab - Discharge Instructions Instructions: Chest Tubes (DC) Follow Up With: Aren Malik Jr, MD [Primary Care Provider] - Additional Instructions: This information will help you care for your Heimlich valve and chest tube when you leave the hospital. About Your Heimlich Valve and Chest Tube Your chest tube is a hollow flexible tube placed between your ribs and into the space between the inner and outer linings of your lungs, which is called the pleural space. Your Heimlich valve is a one-way valve that connects to your chest tube. The valve lets extra air and fluid out of your chest, allowing your lung to fully expand. You may go home with a Heimlich valve if your lung is still leaking air after your surgery. Caring for Your Heimlich Valve and Chest Tube Your chest tube will be covered with a bandage. Change your bandage every 7 days. Clean the skin around your chest tube with soap and water before applying the new bandage. If your bandage is wet, soiled, has come loose, or started to lift from your skin, apply a new one. If your chest tube is draining fluid, your Heimlich valve will be connected to either a plastic container or a drainage bag. The type of collection device used will depend on how much fluid is draining. If your Heimlich valve is connected to a small plastic container, write down the amount in the container and empty it into the toilet. If your Heimlich valve is connected to a drainage bag, your doctor may want you to measure the amount of fluid that is draining. Write down the amount and empty the bag into the toilet. To remove the fluid, open the valve at the bottom of the drainage bag and pour it into the toilet. The chest tube may irritate your chest wall, causing you some discomfort. Your doctor can prescribe pain medication, if you need it. Showering with your Heimlich valve You may take showers but you will need to keep your bandage dry. A hand-held showerhead can help direct the water away from your bandage. You will also need to cover your bandage. If the bandage gets wet, you will need to change it. Wet bandages are a common cause of skin problems. Fixing a disconnected Heimlich valve The Heimlich valve should never be disconnected from your chest tube. If it becomes disconnected, follow these steps: 1. Reconnect it immediately by inserting the blue end of the valve into your chest tube. 2. Cough deeply. This will help get rid of any extra air that may have built up in your pleural space while disconnecting your Heimlich valve. 3. Call your doctors office. Call Your Doctor or Nurse if: You have a temperature of 101 F (38.3 C) or higher Your skin around the chest tube is red, puffy, or feels warm and painful when you touch it You have pain that is not relieved by your pain medication The amount of drainage from the chest tube increases - Diet and Activity Activity: as per physical therapy Diet: low salt diet
--- NOTE | 2019-03-07 13:00 | Physician Discharge Referral ---
ExtendedCare Referral Info Transfer To: SNF Provider in Charge after Transfer: PCP Institutional Level of Care: Skilled - Diagnosis (1) Cavitary lesion of lung Status: Acute (2) Pneumothorax on right Priority: Secondary Status: Acute (3) Acute exacerbation of chronic obstructive airways disease Priority: Secondary Status: Chronic (4) Healthcare-associated pneumonia Priority: Secondary Status: Acute (5) Leukocytosis Priority: Secondary Status: Chronic Prognosis: Fair Aware of Diagnosis: Patient Aware of Prognosis: Patient - Transfer Medications Prescriptions: LORazepam [Ativan] 0.5 mg PO BID PRN 5 Days #10 tablet PRN Reason: Anxiety Amoxicillin/Clavulanate [Augmentin] 875 mg PO BIDWM #84 tablet Furosemide [Lasix] 40 mg PO DAILY #30 tablet predniSONE [PredniSONE] 10 mg PO DAILY #30 tablet Voriconazole [VFend] 200 mg PO Q12H #84 tablet Home Medications: Citalopram [CeleXA] 20 mg PO DAILY 02/05/16 [History] Loratadine [Claritin] 10 mg PO DAILY 02/05/16 [History] Metoprolol [Lopressor] 25 mg PO BID 02/05/16 [History] Nitroglycerin [Nitrostat] 0.4 mg SL Q5M PRN 02/05/16 [History] Aspirin [Lo-Dose Aspirin EC] 81 mg PO DAILY 11/12/18 [History] Budesonide/Formoterol 160/4.5 [Symbicort 160/4.5] 2 puff IH BIDR 11/12/18 [History] L. Acidophilus/Pectin, [place] [Acidophilus Probiotic Capsule] 1 cap PO DAILY 11/12/18 [History] Multivitamin [One Daily] 1 tab PO DAILY 11/12/18 [History] raNITIdine HCl [Zantac] 150 mg PO BID 11/12/18 [History] Menthol [Cough Drops] 9.1 mg PO Q2H PRN #0 lozenge 11/19/18 [Rx] Melatonin 6 mg PO HS 12/09/18 [History] Guaifenesin [Mucinex] 600 mg PO BID PRN 12/24/18 [History] Albuterol Neb [Proventil Neb] 2.5 mg PO TID PRN 02/11/19 [History] Benzonatate [Tessalon] 200 mg PO HS PRN 02/11/19 [History] Diclofenac Sodium [Voltaren] 75 mg PO DAILY PRN 02/11/19 [History] Nystatin [Nystatin Suspension] 4 ml PO QID 02/11/19 [History] Promethazine [Phenergan] 25 mg PO Q6H PRN 02/11/19 [History] Umeclidinium Brm/Vilanterol Tr [Anoro Ellipta 62.5-25 Mcg INH] 2 puff PO DAILY 02/11/19 [History] Amoxicillin/Clavulanate [Augmentin] 875 mg PO BIDWM #84 tablet 03/07/19 [Rx] Furosemide [Lasix] 40 mg PO DAILY tablet 03/07/19 [Rx] Furosemide [Lasix] 40 mg PO DAILY #30 tablet 03/07/19 [Rx] LORazepam [Ativan] 0.5 mg PO BID PRN 5 Days #10 tablet 03/07/19 [Rx] Voriconazole [VFend] 200 mg PO Q12H #84 tablet 03/07/19 [Rx] predniSONE [PredniSONE] 10 mg PO DAILY #30 tablet 03/07/19 [Rx] Allergies/Adverse Reactions: Allergy/AdvReac Type Severity Reaction Status Date / Time clarithromycin [From Biaxin] Allergy Gastrointestinal Verified 02/11/19 14:48 Upset codeine AdvReac See Verified 02/11/19 14:48 Comments lansoprazole [From Prevacid] AdvReac ulcer Verified 02/11/19 14:48 lisinopril AdvReac Cough Verified 02/11/19 14:48 meloxicam [From Mobic] AdvReac ulcer Verified 02/11/19 14:48 opium (anthroposophic) AdvReac nausea/vomi Verified 02/11/19 14:48 [Opium (Anthroposophic)] ting - Respiratory Orders Oxygen / L per min (7-8 L) Smoking Cessation: Smoking cessation has been advised. For more information, call the [place] Tobacco Quit Line at 8-905-OKQS-NOW. - Mobility Orders Chair - Rehabiliation Orders Rehab Potential: Good Rehab Orders: Evaluation for Physical Therapy, Evaluation for Occupational Therapy - Treatments Skin tear care topically daily PRN per policy - Diet Orders Cardiac CERTIFICATION: I certify that the transfer of the above named patient to an Extended Care Facility is necessary for the continuing treatment of the diagnosis listed. The above information is true and accurate reflection of patient's current condition. Confidential - Redisclosure prohibited without a patient's written consent.
[2019-03-07] MEDS ORDERED: Furosemide 40 MG/4 ML VIAL IVP ONE ×2 (14:00→16:00)
== END 2019-03-07 16:41 | DRG 871 ==
LOC: 2NENU 16:42 → EMEROOARM 16:42 → 2NENU 21:11 → SUATTDRO 02-11 10:41
PROVIDERS: ADMIT Family Medicine; ATTEND Internal Medicine